=== PATIENT | male | born 1960 | race Caucasian/White ===

== ENCOUNTER → 2017-10-25 15:52 | Outpatient (CLI) | payer OTHER, SELFPAY ==
[2017-10-25 17:51] LABS: Absolute Lymphocyte Count 1.48 X10^3/ul (0.83-4.51); Absolute Neutrophil Count 3.8 X10^3/uL (2.0-7.7); Basophil# 0.09 X10^3/uL; Basophil% 1.4 % (0-1); Eosinophil# 0.17 X10^3/uL; Eosinophils% 2.7 % (0-5); Hemoglobin 16.4 g/dl (13.0-16.5); Lymphocyte # 1.48 X10^3/ul (4.0); Lymphocyte % 23.5 % (19-41); Mean Corp Hgb Conc 35.7 g/gl (32-36); Mean Corpuscular Hgb 33.1 pg (27.0-32.0); Mean Corpuscular Volume 92.7 fL (80-94); Monocyte# 0.74 X10^3/uL; Monocyte% 11.7 % (0-10); Neutrophil # 3.81 X10^3/uL (2.7-7.7); Neutrophil % 60.4 % (47-70); Platelet Count 286 K/mm3 (150-450); RBC Distribution Width CV 13.5 % (11.6-14.6); RBC Distribution Width SD 44.3 fl (35.1-43.9); Red Blood Count 4.96 M/mm3 (4.6-6.2); White Blood Count 6.3 K/mm3 (4.4-11.0)
[2017-10-25 17:52] LABS: POSITIVE COUNT NO; POSITIVE DIFFERENTIAL NO; POSITIVE MORPHOLOGY NO
[2017-10-25 18:03] LABS: ALB/GLOB Ratio 1.3 RATIO (0.9-2.4); AST(SGOT) 21 U/L (15-37); Alanine Aminotransfer ALT/SGPT 42 U/L (16-61); Albumin, Serum 3.9 g/dL (3.2-5.0); Alkaline Phosphatase 59 U/L (45-117); Anion Gap 6 (5-15); BUN 14 mg/dL (7-18); BUN/Creat Ratio 12.3 RATIO (10-20); Calcium,Total 8.4 mg/dL (8.5-10.1); Chloride 107 mmol/L (98-107); Creatinine, Serum 1.14 mg/dL (0.70-1.30); EST Glomerular Filtration Rate 70 mL/min (>60); Est Glom Filt Rate - Afr Amer 85 mL/min (>60); Glucose 86 mg/dL (74-106); Protein, Total 6.9 g/dL (6.4-8.2); Sodium Level 142 mmol/L (136-145)
== END ==
PROVIDERS: Family Provider Internal Medicine; PCP Internal Medicine; Visit Provider Internal Medicine Rheumatology
DX: L40.59 Other psoriatic arthropathy (principal); L40.8 Other psoriasis; M17.0 Bilateral primary osteoarthritis of knee; G47.33 Obstructive sleep apnea (adult) (pediatric); E78.5 Hyperlipidemia, unspecified; Z79.899 Other long term (current) drug therapy
CPT/HCPCS: 36415; 80053; 85025

== ENCOUNTER → 2017-12-17 06:17 | Outpatient (CLI) | payer OTHER, SELFPAY ==
[2017-12-17 07:30] LABS: Absolute Lymphocyte Count 1.33 X10^3/ul (0.83-4.51); Absolute Neutrophil Count 2.8 X10^3/uL (2.0-7.7); Basophil# 0.06 X10^3/uL; Basophil% 1.1 % (0-1); Eosinophil# 0.22 X10^3/uL; Eosinophils% 3.9 % (0-5); Hematocrit 44.6 % (40-54); Hemoglobin 15.3 g/dl (13.0-16.5); Lymphocyte # 1.33 X10^3/ul (4.0); Lymphocyte % 23.9 % (19-41); Mean Corp Hgb Conc 34.3 g/gl (32-36); Mean Corpuscular Hgb 32.1 pg (27.0-32.0); Mean Corpuscular Volume 93.5 fL (80-94); Mean Platelet Vol. 9.5 fl (6.2-12.0); Monocyte# 1.11 X10^3/uL; Monocyte% 19.9 % (0-10); Neutrophil # 2.83 X10^3/uL (2.7-7.7); Neutrophil % 50.8 % (47-70); Platelet Count 238 K/mm3 (150-450); RBC Distribution Width CV 13.5 % (11.6-14.6); RBC Distribution Width SD 45.7 fl (35.1-43.9); Red Blood Count 4.77 M/mm3 (4.6-6.2); White Blood Count 5.6 K/mm3 (4.4-11.0)
[2017-12-17 07:34] LABS: POSITIVE COUNT NO; POSITIVE DIFFERENTIAL NO; POSITIVE MORPHOLOGY NO
[2017-12-17 08:04] LABS: ALB/GLOB Ratio 1.1 RATIO (0.9-2.4); AST(SGOT) 24 U/L (15-37); Alanine Aminotransfer ALT/SGPT 39 U/L (16-61); Albumin, Serum 3.5 g/dL (3.2-5.0); Alkaline Phosphatase 57 U/L (45-117); Anion Gap 7 (5-15); BUN 12 mg/dL (7-18); BUN/Creat Ratio 13.5 RATIO (10-20); Calcium,Total 8.5 mg/dL (8.5-10.1); Chloride 107 mmol/L (98-107); Cholesterol 114 mg/dL (200); Creatinine, Serum 0.89 mg/dL (0.70-1.30); EST Glomerular Filtration Rate 94 mL/min (>60); Est Glom Filt Rate - Afr Amer 113 mL/min (>60); Globulin 3.2 g/dL (2.2-4.2); Glucose 86 mg/dL (74-106); High Density Lipoprotein 27 mg/dL; PSA,Total - Annual Screen 0.85 ng/mL (0.00-4.00); Potassium 3.6 mmol/L (3.5-5.1); Protein, Total 6.7 g/dL (6.4-8.2); Sodium Level 143 mmol/L (136-145); Thyroid Stim Hormone (TSH) 1.13 uIU/mL (0.358-3.74); Triglycerides 115 mg/dL; Very Low Density Lipoprotein 23 mg/dL (5-40)
== END ==
PROVIDERS: Family Provider Internal Medicine; PCP Internal Medicine; Visit Provider Internal Medicine
DX: Z12.5 Encounter for screening for malignant neoplasm of prostate (principal); E05.90 Thyrotoxicosis, unspecified without thyrotoxic crisis or storm; E78.4 Other hyperlipidemia; R41.3 Other amnesia
CPT/HCPCS: 36415; 80053; 80061; 84153; 84443; 85025; G0103

== ENCOUNTER → 2018-01-24 06:10 | Outpatient (CLI) | payer OTHER, SELFPAY ==
[2018-01-24 07:11] LABS: Absolute Neutrophil Count 3.1 X10^3/uL (2.0-7.7); Basophil# 0.08 X10^3/uL; Basophil% 1.4 % (0-1); Eosinophils% 3.5 % (0-5); Hematocrit 45.5 % (40-54); Hemoglobin 16.2 g/dl (13.0-16.5); Lymphocyte % 29.5 % (19-41); Mean Corp Hgb Conc 35.6 g/gl (32-36); Mean Corpuscular Hgb 33.2 pg (27.0-32.0); Mean Corpuscular Volume 93.2 fL (80-94); Mean Platelet Vol. 9.6 fl (6.2-12.0); Monocyte# 0.67 X10^3/uL; Monocyte% 11.6 % (0-10); Neutrophil # 3.09 X10^3/uL (2.7-7.7); Neutrophil % 53.7 % (47-70); Platelet Count 268 K/mm3 (150-450); RBC Distribution Width CV 13.1 % (11.6-14.6); RBC Distribution Width SD 43.6 fl (35.1-43.9); Red Blood Count 4.88 M/mm3 (4.6-6.2); White Blood Count 5.8 K/mm3 (4.4-11.0)
[2018-01-24 07:16] LABS: POSITIVE COUNT NO; POSITIVE DIFFERENTIAL NO; POSITIVE MORPHOLOGY NO
[2018-01-24 07:27] LABS: ALB/GLOB Ratio 1.2 RATIO (0.9-2.4); AST(SGOT) 19 U/L (15-37); Alanine Aminotransfer ALT/SGPT 34 U/L (16-61); Albumin, Serum 3.5 g/dL (3.2-5.0); Alkaline Phosphatase 53 U/L (45-117); Anion Gap 5 (5-15); BUN 19 mg/dL (7-18); Calcium,Total 8.4 mg/dL (8.5-10.1); Chloride 108 mmol/L (98-107); EST Glomerular Filtration Rate 81 mL/min (>60); Est Glom Filt Rate - Afr Amer 98 mL/min (>60); Glucose 125 mg/dL (74-106); Potassium 4.2 mmol/L (3.5-5.1); Protein, Total 6.5 g/dL (6.4-8.2); Sodium Level 142 mmol/L (136-145)
== END ==
PROVIDERS: Family Provider Internal Medicine; PCP Internal Medicine; Visit Provider Internal Medicine Rheumatology
DX: L40.59 Other psoriatic arthropathy (principal); Z79.899 Other long term (current) drug therapy; L40.8 Other psoriasis; M17.0 Bilateral primary osteoarthritis of knee; G47.33 Obstructive sleep apnea (adult) (pediatric); E78.5 Hyperlipidemia, unspecified
CPT/HCPCS: 36415; 80053; 85025

== ENCOUNTER → 2018-04-22 15:53 | Outpatient (CLI) | payer OTHER, SELFPAY ==
[2018-04-22 17:54] LABS: Absolute Lymphocyte Count 1.59 X10^3/ul (0.83-4.51); Absolute Neutrophil Count 3.4 X10^3/uL (2.0-7.7); Basophil# 0.05 X10^3/uL; Basophil% 0.9 % (0-1); Eosinophil# 0.14 X10^3/uL; Eosinophils% 2.4 % (0-5); Hematocrit 45.5 % (40-54); Hemoglobin 16.3 g/dl (13.0-16.5); Lymphocyte # 1.59 X10^3/ul (4.0); Mean Corp Hgb Conc 35.8 g/gl (32-36); Mean Corpuscular Hgb 33.3 pg (27.0-32.0); Mean Platelet Vol. 9.9 fl (6.2-12.0); Monocyte# 0.69 X10^3/uL; Monocyte% 11.7 % (0-10); Neutrophil # 3.39 X10^3/uL (2.7-7.7); Neutrophil % 57.7 % (47-70); Platelet Count 305 K/mm3 (150-450); RBC Distribution Width CV 13.1 % (11.6-14.6); RBC Distribution Width SD 43.3 fl (35.1-43.9); Red Blood Count 4.89 M/mm3 (4.6-6.2); White Blood Count 5.9 K/mm3 (4.4-11.0)
[2018-04-22 17:58] LABS: POSITIVE COUNT NO; POSITIVE DIFFERENTIAL NO; POSITIVE MORPHOLOGY NO
[2018-04-22 18:33] LABS: ALB/GLOB Ratio 1.2 RATIO (0.9-2.4); AST(SGOT) 21 U/L (15-37); Alanine Aminotransfer ALT/SGPT 35 U/L (16-61); Albumin, Serum 3.7 g/dL (3.2-5.0); Alkaline Phosphatase 63 U/L (45-117); Anion Gap 9 (5-15); BUN 15 mg/dL (7-18); BUN/Creat Ratio 14.9 RATIO (10-20); Calcium,Total 8.7 mg/dL (8.5-10.1); Chloride 104 mmol/L (98-107); Creatinine, Serum 1.01 mg/dL (0.70-1.30); EST Glomerular Filtration Rate 80 mL/min (>60); Est Glom Filt Rate - Afr Amer 97 mL/min (>60); Globulin 3.2 g/dL (2.2-4.2); Glucose 86 mg/dL (74-106); Protein, Total 6.9 g/dL (6.4-8.2); Sodium Level 143 mmol/L (136-145)
== END ==
PROVIDERS: Family Provider Internal Medicine; PCP Internal Medicine; Visit Provider Internal Medicine Rheumatology
DX: L40.59 Other psoriatic arthropathy (principal); L40.8 Other psoriasis; M17.0 Bilateral primary osteoarthritis of knee; G47.33 Obstructive sleep apnea (adult) (pediatric); E78.5 Hyperlipidemia, unspecified; Z79.899 Other long term (current) drug therapy
CPT/HCPCS: 36415; 80053; 85025

== ENCOUNTER → 2018-07-19 09:14 | Outpatient (CLI) | payer OTHER, SELFPAY ==
[2018-07-19 10:13] LABS: Absolute Lymphocyte Count 1.42 X10^3/ul (0.83-4.51); Absolute Neutrophil Count 4.4 X10^3/uL (2.0-7.7); Basophil# 0.07 X10^3/uL; Eosinophil# 0.15 X10^3/uL; Eosinophils% 2.2 % (0-5); Hematocrit 46.6 % (40-54); Hemoglobin 16.2 g/dl (13.0-16.5); Lymphocyte # 1.42 X10^3/ul (4.0); Lymphocyte % 20.7 % (19-41); Mean Corp Hgb Conc 34.8 g/gl (32-36); Mean Corpuscular Hgb 32.3 pg (27.0-32.0); Mean Corpuscular Volume 92.8 fL (80-94); Mean Platelet Vol. 9.3 fl (6.2-12.0); Monocyte# 0.81 X10^3/uL; Monocyte% 11.8 % (0-10); Neutrophil # 4.38 X10^3/uL (2.7-7.7); Platelet Count 278 K/mm3 (150-450); RBC Distribution Width CV 13.3 % (11.6-14.6); RBC Distribution Width SD 44.6 fl (35.1-43.9); Red Blood Count 5.02 M/mm3 (4.6-6.2); White Blood Count 6.9 K/mm3 (4.4-11.0)
[2018-07-19 10:14] LABS: POSITIVE COUNT NO; POSITIVE DIFFERENTIAL NO; POSITIVE MORPHOLOGY NO
[2018-07-19 10:49] LABS: ALB/GLOB Ratio 1.2 RATIO (0.9-2.4); AST(SGOT) 26 U/L (15-37); Alanine Aminotransfer ALT/SGPT 52 U/L (16-61); Albumin, Serum 3.6 g/dL (3.2-5.0); Alkaline Phosphatase 62 U/L (45-117); Anion Gap 7 (5-15); BUN 16 mg/dL (7-18); BUN/Creat Ratio 17.8 RATIO (10-20); Calcium,Total 8.6 mg/dL (8.5-10.1); Chloride 107 mmol/L (98-107); EST Glomerular Filtration Rate 92 mL/min (>60); Est Glom Filt Rate - Afr Amer 111 mL/min (>60); Globulin 3.1 g/dL (2.2-4.2); Glucose 112 mg/dL (74-106); Protein, Total 6.7 g/dL (6.4-8.2); Sodium Level 142 mmol/L (136-145)
== END ==
PROVIDERS: Family Provider Internal Medicine; PCP Internal Medicine; Referring Provider Internal Medicine Rheumatology; Visit Provider Internal Medicine Rheumatology
DX: L40.59 Other psoriatic arthropathy (principal); M17.0 Bilateral primary osteoarthritis of knee; G47.33 Obstructive sleep apnea (adult) (pediatric); E78.5 Hyperlipidemia, unspecified; Z79.899 Other long term (current) drug therapy
CPT/HCPCS: 36415; 80053; 85025

== ENCOUNTER → 2018-07-29 08:08 | Outpatient (CLI) | payer OTHER, SELFPAY ==
--- NOTE | 2018-07-29 08:10 | US_ITS ---
STUDY: THYROID ULTRASOUND REASON FOR EXAM: Male, 58 years old. Thyromegaly TECHNIQUE: Ultrasound evaluation of the thyroid was performed with real-time and static wagner-scale imaging. COMPARISON: None. FINDINGS: RIGHT LOBE: The right lobe of the thyroid gland measures 5.8 x 2.9 x 2.2 cm. There is a homogeneous echotexture. There is a hypoechoic nodule of the upper pole measuring 4 x 4 by 3 mm. There is minimal peripheral vascularity of this nodule. LEFT LOBE: The left lobe of the thyroid gland measures 5.1 x 2.2 x 2.6 cm. There is a homogeneous echotexture. There is a hypoechoic nodule of the mid pole measuring 1.2 x 1.2 x 1.4 cm. There is minimal peripheral vascularity of this nodule. ISTHMUS: The isthmus measures 12 mm . The regional lymph nodes are normal. US/Thyroid IMPRESSION: Mild thyromegaly. Bilateral thyroid nodules as described above. The left thyroid lobe nodule is indeterminate for malignant versus benign process, and biopsy is recommended. Electronically Signed: Dioni Guerrero MD at 23:13 EST , Service support ,
--- NOTE | 2018-07-29 08:37 | RAD_ITS ---
STUDY: X-RAY - LEFT KNEE REASON FOR EXAM: Male, 58 years old. Pain, no known injury TECHNIQUE: 4 view(s) of the knee. COMPARISON: Previous study of 01/26/2014 FINDINGS: Normal visualized distal femur. Normal visualized proximal tibia and fibula. Normal proximal tibiofibular articulation. Normal medial femorotibial compartment. Normal lateral femorotibial compartment. Normal patellofemoral articulation. The soft tissue structures are unremarkable. RAD/Knee 1 or 2 Views IMPRESSION: Normal x-ray examination of the knee. Electronically Signed: Dioni Guerrero MD at 20:09 EST , Service support ,
--- NOTE | 2018-07-29 08:46 | RAD_ITS ---
STUDY: X-RAY - RIGHT KNEE REASON FOR EXAM: Male, 58 years old. Pain, no known injury TECHNIQUE: 4 view(s) of the knee. COMPARISON: Prior study of 08/07/2014 FINDINGS: Normal visualized distal femur. Normal visualized proximal tibia and fibula. Normal proximal tibiofibular articulation. Normal medial femorotibial compartment. Normal lateral femorotibial compartment. Normal patellofemoral articulation. The soft tissue structures are unremarkable. RAD/Knee 1 or 2 Views IMPRESSION: Normal x-ray examination of the knee. Electronically Signed: Dioni Guerrero MD at 20:10 EST , Service support ,
--- OUTSIDE RECORDS SUMMARY | 2018-10-30 18:34 | XMS RPT_ITS | Continuity of Care Document ---
:1960 Author Organization [facility] Address [facility] [address] [place] [address] Phone Care Team Providers Name Role Phone Ana Cai DO Unavailable Lupillo Taylor Unavailable Alonso HICKEY, Sin Morton Unavailable Ed HICKEY, Davy Hudson Unavailable Dr. Lowell Corbin Unavailable Terrence Turner Unavailable Dante Cook Unavailable Unavailable Terrence HICKEY, Ingrid Lee Unavailable Millie Christine Unavailable Unavailable Amaris Becerra Unavailable Unavailable Jenny Flower Unavailable Unavailable Unavailable Unavailable Problems Name Dates Details Abnormal C-reactive protein (R79.89, 790.99) Status: Active Abnormal TSH (R79.89, 790.6) Comments: repeat normal Status: Active Anxiety (F41.9, 300.00) Comments: controlled Status: Active Attention deficit disorder of adult (F98.8, 314.00) Comments: right now doing better talk about the CBT needs and the ways to help with doing list and complete first thing on list to go to second. complete things as told and comes in. working on family interacti on now that being treated.CS , drug screen 07-30 Status: Active Bilateral carotid artery stenosis (I65.23, 433.10) Comments: LAST blood flow screening in 10/28 was normal Status: Active Bilateral knee pain (M25.561, 719.46) Status: Active BMI 30.0-30.9,adult (Z68.30, V85.30) Status: Active Bronchitis with asthma, acute (J20.9, 466.0) Status: Active Elevated blood-pressure reading without diagnosis of hypertension (R03.0, 796.2) Comments: chronic stable-continue present regimen Status: Active Encounter for screening for malignant neoplasm of prostate (Renamed from Screening for prostate cancer) (Z12.5, V76.44) Status: Active Fatigue (R53.83, 780.79) Comments: not sleeping enough or eating - if not improve with making changes he will need more workup Status: Active Gastric reflux (K21.9, 530.81) Comments: chronic stable-continue present regimen Status: Active Gastroesophageal reflux disease without esophagitis (K21.9, 530.81) Comments: chronic stable-continue present regimen Status: Active Hyperthyroidism (E05.90, 242.90) Comments: chronic stable-continue present regimen Status: Active Immunocompromised, acquired (D84.9, 279.3) Status: Active Lacunar infarction (I63.81, 434.91) Comments: agressive risk factor control and he taking aspirin daily Status: Active Liver function abnormality (K76.89, 573.9) Comments: better Status: Active [facility] wellness exam Status: Active Memory loss (R41.3, 780.93) Status: Active Migraine (G43.909, 346.90) Comments: opthalmic migraine Status: Active Need for prophylactic vaccination and inoculation against influenza (Renamed from Need for immunization against influenza) (Z23, V04.81) Status: Active Obstructive sleep apnea, adult (G47.33, 327.23) Comments: wearing cpap Status: Active Osteoarthritis (M19.90, 715.90) Status: Active Other hyperlipidemia (E78.49, 272.4) Status: Active Pneumococcal vaccination given (Z23, V06.6) Comments: personal hx of pneumonia and immune compromised with meds Status: Active Primary dysthymia (F34.1, 300.4) Status: Active Psoriatic arthropathy (L40.50, 696.0) Status: Active Smoker (F17.200, 305.1) Comments: encourage cessation- WE DISCUSSED HE USES PIPE Status: Active Soft tissue mass (M79.9, 729.90) Comments: take nsaids and ic if not better call and send to cushion former Status: Active Thyroid nodule (E04.1, 241.0) Status: Active Thyromegaly (E01.0, 240.9) Status: Active Unspecified Diagnosis Status: Active Wheezing (R06.2, 786.07) Status: Active Medications Name Dates Details Amphetamine-Dextroamphet ER 20 MG Oral Capsule Extended Release 24 Hour 1 (one) Capsule ER 24HR bid for 0 days Quantity: 60 {Capsule} Refills: 0 Ordered:15-Jul-2018 Ingrid Ocampo MD Start : 15-Jul-2018 Active Comments:sixtyplease dispense blue capsules onlyDX: F98.8 B-COMPLEX (Oral Capsule) 1 cap qd for 0 days Refills: 0 Ordered:04-Dec-2016 Shauna Becerra Calcium 600+D Plus Minerals 600-400 MG-UNIT Oral Tablet Chewable 1 (one) Tablet Chewable qd for 0 days Quantity: 30 {Tablet} Refills: 3 Ordered:25-Feb-2016 Fast DO, Ana AFast DO, Ana A Start : 25-Feb-2016 Active Crestor 10 MG Oral Tablet 1 (one) Tablet qd for 90 days Quantity: 90 {Tablet} Refills: 3 Ordered:25-Mar-2018 Fast DO, Ana AFast DO, Ana A Start : 25-Mar-2018 Active DULoxetine HCl 20 MG Oral Capsule Delayed Release Particles 2 (two) Capsule DR Part qd for 0 days Quantity: 180 {Capsule} Refills: 3 Ordered:22-Jul-2018 Fast DO, Ana AFast DO, Ana A Start : 22-Jul-2018 Active DULoxetine HCl 20 MG Oral Capsule Delayed Release Particles 2 (two) Capsule DR Part qd for 0 days Quantity: 180 {Capsule} Refills: 3 Ordered:22-Jul-2018 Fast DO, Ana AFast DO, Ana A Start : 22-Jul-2018 Active Escitalopram Oxalate 20 MG Oral Tablet 1 (one) Tablet qhs for 90 days Quantity: 90 {Tablet} Refills: 3 Ordered:03-Sep-2017 Ana Cai DO, DO, Ana A Start : 03-Sep-2017 Active FOLIC ACID, 1MG (Oral Tablet) 1 tab qd (1 MG) Active Methotrexate 2.5 MG Oral Tablet 6 once weekly (2.5 MG) Active Comments:vashti Metoprolol Tartrate 50 MG Oral Tablet 1 (one) Tablet 1 tab at 6pm night before scan. 1 tab at 7am day of scan for 0 days Quantity: 2 {Tablet} Refills: 0 Ordered:24-Jul-2018 Millie Christine Start : 24-Jul-2018 Active Montelukast Sodium 10 MG Oral Tablet 1 (one) Tablet qd in evening for 90 days Quantity: 90 {Tablet} Refills: 3 Ordered:29-Jun-2017 Ana Cai DO, DO Ana A Start : 29-Jun-2017 Active MULTIVITAMIN (PO Tab) 1 tab qd for 0 days Refills: 0 Ordered:16-Feb-2010 Shauna Becerra OMEGA 3, 1000MG (Oral Capsule) 1 cap qd for 0 days Refills: 0 Ordered:16-Feb-2010 Shauna Becerra Otezla 10 & 20 & 30 MG Oral Tablet Therapy Pack 1 (one) Tab Ther Pack uad per Dr Valle for 0 days Quantity: 1 {Packet} Refills: 3 Ordered:04-Dec-2016 Amaris Becerra Start : 25-Feb-2016 Active Comments:Leonard Reese HFA 108 (90 Base) MCG/ACT Inhalation Aerosol Solution 2 (two) Aerosol Soln q 6 hr prn for 0 days Quantity: 1 {Inhaler} Refills: 1 Ordered:24-Dec-2017 Ayala ZAMAN Ana Palafox DO, Ana A Start : 24-Dec-2017 Active VITAMIN C, 500MG (Oral Tablet) 1 tab qd during winter months for 0 days Refills: 0 Ordered:16-Nov-2014 Elodia Christinetive AMOXICILLIN-POT CLAVULANATE, 875-125MG (Oral Tablet) 1 (one) Tablet Tablet bid for 0 days Quantity: 20 {Tablet} Refills: 0 Ordered:26-Jul-2015 Long SIGNAL OPERATOR, Rae L Start : 20-Apr-2015 End : 26-Jul-2015 Inactive ASPIRIN LOW DOSE, 81MG (Oral Tablet) 1 tab qd for 0 days Refills: 0 Ordered:16-Feb-2010 Amaris Becerra End : 16-Feb-2010 Inactive Augmentin 875-125 MG Oral Tablet 1 (one) Tablet Tablet bid for 90 days Quantity: 20 {QS} Refills: 3 Ordered:11-Jan-2017 VIVIANA Hart Start : 20-Dec-2016 End : 11-Jan-2017 Inactive Clarithromycin 500 MG Oral Tablet 1 (one) Tablet Tablet bid for 0 days Quantity: 20 {Tablet} Refills: 0 Ordered:03-Apr-2018 Fast DO, Ana AFast DO, Ana A Start : 24-Dec-2017 End : 03-Apr-2018 Inactive CLOTRIMAZOLE, 10MG (Mouth/Throat Riya) 1 (one) Riya 5x daily for 10 days Quantity: 50 {Riya} Refills: 0 Ordered:26-Jul-2015 Leeanne BENITEZHyacinth Start : 26-Jul-2015 End : 05-Aug-2015 Inactive LORazepam 0.5 MG Oral Tablet 1 (one) Tablet qd prn for 30 days Quantity: 30 {Tablet} Refills: 0 Ordered:01-Jul-2018 Fast DO, Ana AFast DO, Ana A Start : 01-Jul-2018 End : 31-Jul-2018 Inactive Comments:thirty PredniSONE 10 MG Oral Tablet 3 (three) Tablet pills for 3 days 2 pills for 3 days 1 pill for 3 days with food in am for 0 days Quantity: 18 {Tablet} Refills: 0 Ordered:03-Apr-2018 Millie Christine Start : 24-Dec-2017 End : 03-Apr-2018 Inactive Comments:take with food in am BIAXIN XL, 500MG (Oral Tablet Extended Release 24 Hour) 2 (two) Tablet ER 24HR Tablet ER 24HR qd for 0 days Quantity: 20 {Tablet} Refills: 0 Ordered:08-Nov-2015 Amaris Becerra Start : 26-Jul-2015 End : 08-Nov-2015 Discontinued BUSPIRONE HCL, 15MG (Oral Tablet) 1/2 Tablet bid for 0 days Quantity: 30 {Tablet} Refills: 3 Ordered:25-Apr-2011 Mast Andra BARAJAS Start : 18-Oct-2010 End : 25-Apr-2011 Discontinued CeleXA 40 MG Oral Tablet 1 (one) Tablet daily for 90 days Quantity: 90 {Tablet} Refills: 0 Ordered:25-Feb-2016 Fast DO, Ana AFast DO, Ana A Start : 25-Feb-2016 End : 25-Feb-2016 Discontinued CHERATUSSIN AC, 100-10MG/5ML (Oral Syrup) 1-2 Teaspoon qhs prn for 0 days Quantity: 6 {Ounce} Refills: 0 Ordered:08-Nov-2015 Amaris Becerra Start : 26-Jul-2015 End : 08-Nov-2015 Discontinued Escitalopram Oxalate 20 MG Oral Tablet 1/2 Tablet qhs for 90 days Quantity: 90 {Tablet} Refills: 3 Ordered:15-May-2016 Fast DO, Ana AFast DO, Ana A Start : 15-May-2016 End : 15-May-2016 Discontinued HYCODEN (Oral Syrup) (Free Text) 1 (one) Teaspoon Teaspoon q 6hrs, prn for 0 days Quantity: 60 {Milliliter} Refills: 0 Ordered:08-Nov-2015 Amaris Becerra Start : 01-Jul-2015 End : 08-Nov-2015 Discontinued Comments:sixty MOBIC, 15MG (Oral Tablet) 1 tab qd, prn (15 MG) End : 03-Apr-2016 Discontinued NAPROXEN SODIUM, 500MG (Oral Tablet Extended Release 24 Hour) 1 tab Tablet ER 24HR bid for 0 days Quantity: 60 {Tablet_ER_24HR} Refills: 3 Ordered:16-Feb-2010 Andra Schmitt RN Start : 16-Feb-2010 End : 25-Apr-2011 Discontinued PANTOPRAZOLE SODIUM, 40MG (Oral Tablet Delayed Release) 1 (one) Tablet DR Tablet DR qd for 0 days Quantity: 30 {Tablet} Refills: 3 Ordered:08-Nov-2015 Amaris Becerra Start : 19-Jul-2015 End : 08-Nov-2015 Discontinued PANTOPRAZOLE SODIUM, 40MG (Oral Tablet Delayed Release) 1 (one) Tablet DR Tablet DR qd for 0 days Quantity: 90 {Tablet} Refills: 3 Ordered:08-Nov-2015 Amaris Becerra Start : 19-Jul-2015 End : 08-Nov-2015 Discontinued Simvastatin 20 MG Oral Tablet 1 (one) Tablet daily for 0 days Quantity: 180 {Tablet} Refills: 3 Ordered:15-May-2016 Ayala ZAMAN Ana DANtray Ana Kelley Start : 15-May-2016 End : 15-May-2016 Discontinued Simvastatin 20 MG Oral Tablet 1 (one) Tablet daily for 90 days Quantity: 90 {Tablet} Refills: 0 Ordered:15-May-2016 Ayala ZAMAN, Ana Palafox DO, Ana A Start : 15-May-2016 End : 15-May-[address], 0.3-0.05% (Ophthalmic Suspension) 1 Suspension each eye bid for 90 days Refills: 0 Ordered:30-Oct-2011 Amaris Becerra Start : 30-Oct-2011 End : 30-Oct-2011 Discontinued TUMS, 500MG (Oral Tablet Chewable) 1 Tablet Chewable bid for 0 days Quantity: 60 {Tablet_Chewable} Refills: 0 Ordered:08-Nov-2015 Amaris Becerra Start : 29-Jul-2012 End : 08-Nov-2015 Discontinued Allergies and Adverse Reactions Name Dates Details No Known Allergies (Allergy) Onset: 05-Aug-2013 Status: Active No Known Drug Allergies (Allergy) Status: Active Past Medical History Name Dates Details Abnormal blood chemistry (R79.9, 790.6) Status: Inactive as of 09-Jun-2016 Acute pharyngitis (J02.9, 462) Status: Resolved as of 08-Nov-2015 Acute upper respiratory infection (J06.9, 465.9) Status: Inactive as of 09-Jun-2016 Acute upper respiratory infection (J06.9, 465.9) Status: Inactive as of 11-Jan-2017 Allergic rhinitis due to other allergic trigger (J30.89, 477.8) Status: Inactive as of 24-Dec-2017 BMI 27.0-27.9,adult (Z68.27, V85.23) Status: Inactive as of 11-Jan-2017 BMI 28.0-28.9,adult (Z68.28, V85.24) Status: Inactive as of 24-Dec-2017 BMI 30.0-30.9,adult (Z68.30, V85.30) Status: Inactive as of 24-Dec-2017 BMI 31.0-31.9,adult (Z68.31, V85.31) Status: Inactive as of 22-Jul-2018 Bronchitis (J40, 490) Comments: sinusitis as well Status: Resolved as of 08-Nov-2015 Confusion (R41.0, 298.9) Status: Inactive as of 11-Jan-2017 Cough (R05, 786.2) Status: Resolved as of 17-Nov-2013 Cough, persistent (R05, 786.2) Status: Resolved as of 08-Nov-2015 Difficulty sleeping (G47.9, 780.50) Comments: better Status: Inactive as of 11-Jan-2017 Encounter for hepatitis C virus screening test for high risk patient (Z11.59, V73.89) Status: Resolved as of 16-Jul-2017 Encounter for screening for malignant neoplasm of prostate (Renamed from Screening for prostate cancer) (Z12.5, V76.44) Status: Inactive as of 11-Jan-2017 Epicondylitis, lateral (M77.10, 726.32) Status: Resolved as of 24-Feb-2013 Fever and chills (R50.9, 780.60) Status: Resolved as of 19-Jul-2015 fractured vertebrae- upper back Status: Inactive as of 18-Oct-2010 Hypocalcemia (E83.51, 275.41) Status: Resolved as of 21-Oct-2012 Hypocalcemia (E83.51, 275.41) Status: Inactive as of 09-Jun-2016 [facility] Status: Resolved as of 16-Jul-2017 [facility] Status: Inactive as of 09-Jun-2016 Memory loss (R41.3, 780.93) Status: Inactive as of 09-Jun-2016 Need for prophylactic vaccination and inoculation against influenza (Z23, V04.81) Status: Inactive as of 08-Nov-2015 Need for prophylactic vaccination and inoculation against influenza (Z23, V04.81) Status: Inactive as of 08-Nov-2015 Need for prophylactic vaccination and inoculation against influenza (Renamed from Need for immunization against influenza) (Z23, V04.81) Status: Inactive as of 09-Jun-2016 Need for prophylactic vaccination and inoculation against influenza (Renamed from Need for immunization against influenza) (Z23, V04.81) Status: Inactive as of 08-Nov-2015 Need for prophylactic vaccination and inoculation against influenza (Renamed from Need for immunization against influenza) (Z23, V04.81) Status: Resolved as of 16-Jul-2017 NEED FOR PROPHYLACTIC VACCINATION WITH TETANUS TOXOID ALONE (V03.7) Status: Inactive as of 09-Jun-2016 Need for Tdap vaccination (Renamed from Need for iqmhsoneyi-iebvlmc-plevzajig (Tdap) vaccine, adult/adolescent) (Z23, V06.1) Status: Inactive as of 09-Jun-2016 Neoplasm of uncertain behavior of skin (D48.5, 238.2) Status: Inactive as of 24-Dec-2017 Osteoarthritis, unspecified osteoarthritis type, unspecified site (M19.90, 715.90) Status: Inactive as of 18-Oct-2010 screening Status: Resolved as of 08-Nov-2015 Screening for prostate cancer (Z12.5, V76.44) Status: Inactive as of 08-Nov-2015 Sinusitis, acute (J01.90, 461.9) Status: Resolved as of 08-Nov-2015 Snoring (R06.83, 786.09) Comments: refer sleep study Status: Inactive as of 09-Jun-2016 Sore throat and laryngitis (J06.0, 465.0) Status: Resolved as of 08-Nov-2015 Thrush (B37.0, 112.0) Status: Resolved as of 08-Nov-2015 Tonsillectomy Comments: and adenoidectomy /nasal septum surgery Status: Inactive as of 18-Oct-2010 Upper respiratory infection (J06.9, 465.9) Status: Resolved as of 08-Nov-2015 vision change Status: Resolved as of 08-Nov-2015 Wheeze (R06.2, 786.07) Status: Resolved as of 19-Jul-2015 Wheezing (R06.2, 786.07) Status: Resolved as of 17-Nov-2013 Procedures Procedure Dates Details TDAP VACCINE >7 IM (94516) Date: 08-Nov-2015 Completed 08-Nov-2015 nasal septal deviation urgery Completed Tonsillectomy Completed uvuloplasty/palate surgery Completed Date Value Details 29-Jul-2018 Knee 1 or 2 Views Result: Comments: See Note; NOTES: [facility] Imaging Services [address] [place] [id number] Knee 1 or 2 Views MR#: [id number] Acct: [id number] Name: ORACIO ELIZALDE Rep #: [id number] : 1960 M 58 From: Dioni Guerrero MD PCP: Ana Cai DO Status: REG CLI Study: Knee 1 or 2 Views Date of Exam: 07/29/18 Exam# [id number] Ordering Dr: Ana Cai DO STUDY: X-RAY - LEFT KNEE REASON FOR EXAM: Male, 58 years old. Pain, no known injury TECHNIQUE: 4 view(s) of the knee. COMPARISON: Previous study of 01/26/2014 FINDINGS: Normal visualized distal femur. Normal visualized proximal tibia and fibula. Normal proximal tibiofibular articulation. Normal medial femorotibial compartment. Normal lateral femorotibial compartment. Normal patellofemo ral articulation. The soft tissue structures are unremarkable. RAD/Knee 1 or 2 Views IMPRESSION: Normal x-ray examination of the knee. Electron ically Signed: Dioni Guerrero MD at 20:09 EST , Service support , CC: Ana Cai DO Slot Editor: Signed 29-Jul-2018 Knee 1 or 2 Views Result: Comments: See Note; NOTES: [facility] Imaging Services [address] [place] [id number] Knee 1 or 2 Views MR#: [id number] Acct: [id number] Name: ORACIO ELIZALDE Rep #: [id number] : 1960 M 58 From: Dioni Guerrero MD PCP: Ana Cai DO Status: REG CLI Study: Knee 1 or 2 Views Date of Exam: 07/29/18 Exam# [id number] Ordering Dr: Ana Cai DO STUDY: X-RAY - LEFT KNEE REASON FOR EXAM: Male, 58 years old. Pain, no known injury TECHNIQUE: 4 view(s) of the knee. COMPARISON: Previous study of 01/26/2014 FINDINGS: Normal visualized distal femur. Normal visualized proximal tibia and fibula. Normal proximal tibiofibular articulation. Normal medial femorotibial compartment. Normal lateral femorotibial compartment. Normal patellofemo ral articulation. The soft tissue structures are unremarkable. RAD/Knee 1 or 2 Views IMPRESSION: Normal x-ray examination of the knee. Electron ically Signed: Dioni Guerrero MD at 20:09 EST , Service support , CC: Ana Cai DO Slot Editor: Signed 29-Jul-2018 Knee 1 or 2 Views Result: Comments: See Note; NOTES: [facility] Imaging Services [address] [place] [id number] Knee 1 or 2 Views MR#: [id number] Acct: [id number] Name: ORACIO ELIZALDE Rep #: [id number] : 1960 58 From: Dioni Guerrero MD PCP: Ana Cai DO Status: REG CLI Study: Knee 1 or 2 Views Date of Exam: 07/29/18 Exam# [id number] Ordering Dr: Ana Cai DO STUDY: X-RAY - RIGHT KNE E REASON FOR EXAM: Male, 58 years old. Pain, no known injury TECHNIQUE: 4 view(s) of the knee. COMPARISON: Prior study of 08/07/2014 FINDINGS: Normal visualized d istal femur. Normal visualized proximal tibia and fibula. Normal proximal tibiofibular articulation. Normal medial femorotibial compartment. Normal lateral femorotibial compartment. Normal patellofemor al articulation. The soft tissue structures are unremarkable. RAD/Knee 1 or 2 Views IMPRESSION: Normal x-ray examination of the knee. Arvin delgadillo Signed: Dioni Guerrero MD at 20:10 EST , Service support , CC: Ana Cai DO Slot Editor: Signed 29-Jul-2018 Knee 1 or 2 Views Result: Comments: See Note; NOTES: [facility] Imaging Services [address] [place] [address] Knee 1 or 2 Views MR#: [id number] Acct: [id number] Name: ORACIO ELIZALDE Rep #: [id number] : 1960 M 58 From: Dioni Guerrero MD PCP: Ana Cai DO Status: REG CLI Study: Knee 1 or 2 Views Date of Exam: 07/29/18 Exam# [id number] Ordering Dr: Ana Cai DO STUDY: X-RAY - RIGHT KNE E REASON FOR EXAM: Male, 58 years old. Pain, no known injury TECHNIQUE: 4 view(s) of the knee. COMPARISON: Prior study of 08/07/2014 FINDINGS: Normal visualized d istal femur. Normal visualized proximal tibia and fibula. Normal proximal tibiofibular articulation. Normal medial femorotibial compartment. Normal lateral femorotibial compartment. Normal patellofemor al articulation. The soft tissue structures are unremarkable. RAD/Knee 1 or 2 Views IMPRESSION: Normal x-ray examination of the knee. Arvin delgadillo Signed: Dioni Guerrero MD at 20:10 EST , Service support , CC: Ana Cai DO Slot Editor: Signed 29-Jul-2018 Thyroid Result: Comments: See Note; NOTES: [facility] Imaging Services [address] [place] [address] Thyroid MR#: [id number] Acct: [id number] Name: ORACIO ELIZALDE Rep #: [id number] : M 58 From: Dioni Guerrero MD PCP: Ana Cai DO Status: REG CLI Study: Thyroid Date of Exam: 07/29/18 Exam# [id number] Ordering Dr: Ana Cai DO STUDY: THYROID ULTRASOUND REASON FOR EXAM: Male, 58 years old. Thyromegaly TECHNIQUE: Ultrasound evaluation of the thyroid was performed with real-time and static wagner-scale imaging. COMPARISON: None. FINDI NGS: RIGHT LOBE: The right lobe of the thyroid gland measures 5.8 x 2.9 x 2.2 cm. There is a homogeneous echotexture. There is a hypoechoic nodule of the upper pole measuring 4 x 4 by 3 mm. There is mi nimal peripheral vascularity of this nodule. LEFT LOBE: The left lobe of the thyroid gland measures 5.1 x 2.2 x 2.6 cm. There is a homogeneous echotexture. There is a hypoechoic nodule of the mid pole measuring 1.2 x 1.2 x 1.4 cm. There is minimal peripheral vascularity of this nodule. ISTHMUS: The isthmus measures 12 mm . The regional lymph nodes are normal. US/Thyroid IMPRESSION: Mild thyromegaly. Bilateral thyroid nodules as described above. The left thyroid lobe nodule is indeterminate for malignant versus benign process, and biopsy is recommended. Electronically Signed: Dioni Guerrero MD at 23:13 EST , Service support , CC: Ana Cai DO Slot Editor: Signed 29-Jul-2018 Thyroid Result: Comments: See Note; NOTES: [facility] Imaging Services [address] [place] [address] Thyroid MR#: [id number] Acct: [id number] Name: ORACIO ELIZALDE Rep #: [id number] : M 58 From: Dioni Guerrero MD PCP: Ana Cai DO Status: REG CLI Study: Thyroid Date of Exam: 07/29/18 Exam# [id number] Ordering Dr: Ana Cai DO STUDY: THYROID ULTRASOUND REASON FOR EXAM: Male, 58 years old. Thyromegaly TECHNIQUE: Ultrasound evaluation of the thyroid was performed with real-time and static wagner-scale imaging. COMPARISON: None. FINDI NGS: RIGHT LOBE: The right lobe of the thyroid gland measures 5.8 x 2.9 x 2.2 cm. There is a homogeneous echotexture. There is a hypoechoic nodule of the upper pole measuring 4 x 4 by 3 mm. There is mi nimal peripheral vascularity of this nodule. LEFT LOBE: The left lobe of the thyroid gland measures 5.1 x 2.2 x 2.6 cm. There is a homogeneous echotexture. There is a hypoechoic nodule of the mid pole measuring 1.2 x 1.2 x 1.4 cm. There is minimal peripheral vascularity of this nodule. ISTHMUS: The isthmus measures 12 mm . The regional lymph nodes are normal. US/Thyroid IMPRESSION: Mild thyromegaly. Bilateral thyroid nodules as described above. The left thyroid lobe nodule is indeterminate for malignant versus benign process, and biopsy is recommended. Electronically Signed: Dioni Guerrero MD at 23:13 EST , Service support , CC: Ana Cai DO Slot Editor: Signed 23-Oct-2016 Sleep Study Report Result: Comments: See Note; NOTES: [facility] [address] [place] [address] Polysomnography with NCPAP MR#: [id number] Acct: [id number] Name: ORACIO ELIZALDE ep #: [id number] : 1960 56 From: Terrence Turner MD PCP: Ana Cai DO Status: REG CLI Ordering Dr.: Terrence Turner MD Date: 10/06/16 Sex: M C DATE OF SERVICE: 10/06/2016 SCORING RULES: Respirat ory events were acquired and scored in accordance with the Recommended Standards and Specifications as outlined in the AASM Manual for the Scoring of Sleep and Associated Events ( most recent version). Please note that a reference to [facility] AHI in this report is consistent with the current Hypopnea definition according to Medicare Criteria and an [facility] AHI reference is consistent with the current Hypopnea definition according to the AASM criteria and is recognized by [facility] as the RDI. PROCEDURE: The study was attended continuously by a sleep manager. Monitored parameters included left and right EOG, f rontal, central, and occipital EEG, mental and submental EMG, left and right anterior tibialis EMG, signal ECG waveform, snore, continuous airflow with PAP device flow signal, chest and abdominal plethy smography efforts, oxygen saturation with heart rate, and body positioning with video monitoring. REFERRING PHYSICIAN: Dr. Terrence Turner. HISTORY OF PRESENT ILLNESS: The patient is a 56-year-old gentl eman with a calculated body mass index of 28, an [place] Sleepiness Scale score of 11/24. The patient is having known history of sleep disordered breathing of severe nature diagnosed in 2012. In 2013, t he patient was prescribed CPAP at 16 cm of water with humidification and EPR setting of 3. The patient is compliant with CPAP, but is complaining of symptoms of snoring along with weight gain since 2013 . Thus, the patient is undergoing this titration to determine if an appropriate CPAP setting at home or if higher setting is needed. ADDITIONAL MEDICAL HISTORY: Significant for migraine headaches, lopez tid stenosis, psoriatic arthropathy, osteoarthritis. MEDICATIONS AT TIME OF STUDY: Include simvastatin, ____, methotrexate, ____ acid, multivitamin, ____, omega-3 vitamin, aspirin, Crestor, Adderall, C ymbalta, ____, calcium, vitamin D, vitamin C. MASK USED DURING TITRATION: [employer] and [employer] Simplus full face mask, size medium with heated humidity for comfort. SLEEP STUDY DATA: The overnight titrat ion study lasted 362 minutes with sleep period of time of 361.8 minutes and total sleep time of 341.8 minutes, resulting in a sleep efficiency of 94.3%. Sleep latency was 0.5 minutes with a REM latency of 100 minutes. Sleep stage percentages were as follows, N1 18.1%, N2 68.4%, N3 0%, REM 16.5% of total sleep. There were total of 117 arousals during the study resulting in an overall arousal index of 2 0.5. The respiratory arousal index by AASM guidelines was 2.3 while spontaneous arousal index was 13.3. Limb movement arousal index was 4.9. CONTINUOUS POSITIVE AIRWAY PRESSURE DATA: The patient was in itially tried on home setting of 13 and 14 cm of water with humidification, but could not tolerate CPAP. Thus, the patient was switched to Bilevel therapy and titrated on settings of 6/12, 18/14, 20/16 cm of water with humidification. The patient was recorded in supine REM sleep and during this times on these settings. Overall, the apnea-hypopnea index is normalized on all tested settings except it is the highest which appears possibly due to over titration. As respiratory events were only early one while on that higher setting. On the Bilevel setting of 16/12 cm of water with humidification, REM sl eep was recorded for 7 minutes and 30 seconds and non-REM sleep for 2 hours and 27 minutes. On this setting, the overall AHI by AASM guidelines is 1.9 and by CMS guidelines was 1.5. Mean oxygen saturati on of 95.2% with minimum oxygen saturation of 91%. Snoring appear to be eliminated. Bilevel comfort settings were normal for a steep fall. ELECTROCARDIOGRAM DATA: Mean heart rate during sleep was 58 be ats per minute with a range of 45-76 beats per minute. Rare PVCs were noted. LIMB MOVEMENT DATA: The periodic limb movement series index during the study was 5.4. Overall, this number falls within norm al range. However, in general, there are 128 limb movements resulting in a limb movement index of 22.5 and a limb movement without arousal index of 17.6. It does raise question if some of the patient's symptoms of sleep fragmentation are complaints of daytime sleepiness could be due to limb movements. Clinical correlation is needed. DIAGNOSIS: 1. Obstructive sleep apnea syndrome, G47.33. IMPRESSION: 1. At a Bilevel setting of 16/12 cm of water with humidification; however, the patient's apnea-hypopnea and arousal indices were normalized. Snoring is eliminated and oxygen saturations were maintained at or above 91%. 2. A period limb movements are presented as above. Clinical correlation is needed. 3. Abnormal sleep architecture likely secondary to first night effect, possible medication effect, an d titration. RECOMMENDATIONS: 1. Initiate Bilevel at a setting of 16/12 cm of water with humidification. Recommend use of CPAP mask above. Recommend Bilevel comfort settings at normal/default ____ base d on ResMed machine). Allow the patient to use for approximately 4 weeks. If the smartcard download shows an apnea-hypopnea index is greater than 5 where patient is snoring, demonstrating ____ increase of Bilevel setting of 18/14 cm of water with humidification. 2. Clinical correlation for limb movements as above. 3. Encouraged weight loss to optimal body mass index. 4. Recommend the patient be advise d to avoid activities or medications that could exacerbate sleep disordered breathing. 5. Recommend the patient be advised not to drive or operate heavy machinery when sleepy. INTERPRETING PHYSICIAN: Era Turner Jr., M.D. Terrence Turner MD T: NTS JOB: [id number] CC: Terrence Turner MD 42 4210/23/16 1130 <Electronically signed by Terrence Turner MD&#62 ; Date Terrence Turner MD Co-signature (if applicable) Date Signed -Sep-2016 Thyroid Uptake Single or Mult Result: Comments: See Note; NOTES: [facility] Imaging Services [address] [place] [address] Verdana 4d Thyroid Uptake Single or Mult MR#: [id number] Acct: [id number] Name: Javon ELIZALDE Rep #: [id number] : 1960 M 56 From: Sin Brantley DO PCP: Ana Cai DO Status: REG CLI Study: Thyroid Uptake Single or Mult Date of Exam: 09/25/16 Exam# [id number] Ordering Dr: Pearce DO CLINICAL: 56-year-old male with reported history of abnormal in vitro thyroid function studies. I-123 THYROID UPTAKE and SCAN COMPARISON: None available FINDINGS: The patient was administere d a 307 uCi I-123 capsule by mouth. The 4-hour I-123 radioactive iodine thyroidal uptake was calculated to be 6.9 % (normal 5 to 25 %). The 24-hour I-123 radioactive iodine thyroidal uptake was calcul ated to be 19.2 % (normal 5 to 40 %). The I-123 thyroid scan demonstrates homogeneous radiopharmaceutical concentration throughout both lobes of a U -shaped thyroid gland. There are no colloidal parenc hymal hypofunctioning cold nodules noted in either lobe of the thyroid gland. NM/Thyroid Uptake Single or Mult IMPRESSION: 1. NORMAL 4- and 24-hour I-123 radioacti ve iodine thyroidal uptakes. 2. 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 (Beyissel et al, J Nucl Med 32: 1455, 1990) . 3. No hypofunctioning-cold nodules are identified. Electronically Signed: Sin Brantley DO at 23:21 EST Tel , Service support [phone], CC: Ana Cai DO Slot Editor: Signed 04-Apr-2016 Brain/Head W/WO Contrast Result: Comments: See Note; NOTES: [facility] Imaging Services [address] [place] [address] Verdana 4d Brain/Head W/WO Contrast MR#: [id number] Acct: [id number] Name: BECKIE ELIZALDE Rep #: [id number] : 1960 M 56 From: Cuauhtemoc Vo MD PCP: Ana Cai DO Status: REG CLI Study: Brain/Head W/WO Contrast Date of Exam: 04/04/16 Exam# [id number] Ordering Dr: Ana Cai DO STUDY: CT BRAIN WITH AND WITHOUT CONTRAST REASON FOR EXAM: Male, 56 years old. Confusion. Short-term memory loss. RADIATION DOSAGE (If Supplied By Facility): CTDIvol = ( 58.34 ) mGy, DLP = ( 212 9.64 ) mGycm TECHNIQUE: Transaxial CT imaging of the brain was performed pre and post contrast administration. The examination was performed with intravenous administration of 50 ml of Isovue 370 contr ast material. Individualized dose optimization techniques were used for this CT. COMPARISON: None. FINDINGS: Normal soft tissue structures. Normal calvarium. Norm al size ventricles and extra-axial spaces for the patient's age. Normal white matter tracts of the cerebral hemispheres. Findings suggestive of an old tiny lacunar infarct in the insular cortex of the r ight temporal lobe. Normal brainstem. Normal cerebellum. There is no intracranial hemorrhage. There are no findings of an acute ischemic infarction. Normal visualized paranasal sinuses. 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 Electronically Signed: Cuauhtemoc Vo MD at 8:08 EDT Tel [phone], Service support [phone], CC: Ana Cai DO Slot Editor: Signed 16-Aug-2014 Emergency Department Summary Result: Comments: See Note; NOTES: [facility] Medical Records Department [address] [place] [address] Emergency Department Summary MR#: [id number] Acct: [id number] Name: ORACIO LOPEZ Rep #: [id number] : 1960 54 From: Donn Jacobo MD PCP: Ana Cai DO Status: DEP ER DATE OF SERVICE: 08/07/2014 CHIEF COMPLAINT: Pain in right knee. HISTORY OF PRESENT ILLN ESS: A 54-year-old male presents with right knee pain. It started 4 days ago. No trauma. He does have a history of psoriatic arthritis. He had injection of the knee 2 weeks ago with cortisone. He h as not had a fever. He has been ____able to walk on it. PHYSICAL EXAMINATION: VITAL SIGNS: Unremarkable. EXTREMITIES: Right knee exam reveals an effusion. It is erythematous. It is slightly warm, but not hot to touch. He does have pain to range of motion in all directions. There are no overlying skin changes. EMERGENCY DEPARTMENT COURSE: X-ray reveals an effusion. He was given Percocet for pain control. I did do a knee arthrocentesis, which showed a glucose of 10, protein of 4. WBC count 2400. There were no organisms on Gram stain. I feel the patient's pain is likely due to an inflamm atory arthritis. It does not feel like it is a septic joint. I spoke with Dr. Pierce, who agrees that this is likely inflammatory. He will put ice on the area. He will be given a prescription for na proxen and [place]. He will be discharged to follow up with Dr. Pierce. DISPOSITION: Discharge. DIAGNOSES: 1. Right knee effusion: 2. Inflammatory process of right knee. Donn Jacobo MD T: NTS JOB: [id number] 08/16/14 0852 <Electronically signed by Donn Jacobo MD> Date Donn Jacobo MD CC: Ana Cai DO Date Dictated: 2208 Date Transcribed: 08/07/142208 Slot Editor: Signed 07-Aug-2014 Discharge Instruction Result: Comments: See Note; NOTES: [facility] Medical Records Department [address] [place] [address] Discharge Instruction 08/07/142205 MR#: [id number] Acct: [id number] Name: ORACIO ELIZALDE Rep #: [id number] : 1960 54 From: Donn Jacobo MD PCP: Ana Cai DO Status: REG ER ED Disposition - Plan for ED Patient: Disposition: Home Chief Complaint: Lower Ext remity Injury Discharge Problem: Effusion of left knee, Inflammatory monoarthritis of knee or lower leg Instructions: ED Knee Effusion Prescriptions: Hydrocodone Bitart/Apap 5-325 [[place] 5/325] 1 - 2 tablet PO Q4H PRN PRN #20 tablet PRN Reason: Pain Naproxen [Naprosyn] 500 mg PO BID PRN #20 tablet Referrals: Ana Cai DO [Primary Care Provider] - Lupillo Pierce DO [STAFF PHYSICIAN] - What to do if you have Problems For any increased pain, shortness of breath, bleeding, nausea or vomiting, chest pain, or any unexpected problems, contact your doctor. Call [facility] ( [phone]) or report to the closest Emergency Room. Call 911 if necessary. 08/07/142207 <Electronically signed by Donn Jacobo MD> Date Donn Jacobo MD Cosigner Signature (If Indicated): Date CC: Ana Cai DO 15-Jul-2014 Carotid Duplex Ultrasound Result: Comments: See Note; NOTES: [facility] Cardiovascular Services [address] [place] [address] Carotid Duplex Ultrasound 07/10/14 0909 MR#: [id number] Acct: [id number] Nam e: ORACIO ELIZALDE Rep #: [id number] : 1960 54 From: Robin Fabian MD Attending Dr: Ana Cai DO Status: REG CLI Ordering Dr: Ana Cai DO Date: 07/10/14 Location: [facility] Sex: M C Admitt ed: Rt. Velocities/BP Lt. Velocities/BP Prox CCA 127/36.3 cm/sec. Prox CCA 136/34 cm/sec. Mid CCA 113/38.3 cm/sec. Mid CCA 117/27.5 cm/sec. Dist CCA 95.3/32.4 cm/sec. Dist CCA 85.4/ 18.7 cm/se c. Prox ICA 73.9/23.6 cm/sec. Prox ICA 69.9/ 20.4 cm/sec. Mid ICA 76.2/28.3 cm/sec. Mid ICA 72.1/23.6 cm/sec. Dist ICA 104/37.7 cm/sec. Dist ICA 80.4/ 24.9 cm/sec. Rt. ICA/CCA = 0.9. Lt. ICA/CCA = 0.7. Prox ECA 106/25.5 cm/sec. Prox ECA 127/20.6 cm/sec. Rt. Vert. 42.8/11.1 cm/sec. Lt. Vert. 55.8/ 24.4 cm/sec. Right Extracranial There is intimal thickening but no significant atherosclerotic p laque noted in the right common carotid artery. There is no significant atherosclerotic plaque noted in the right internal carotid artery. There is no significant atherosclerotic plaque noted in the right external carotid artery. Antegrade flow is noted in the right vertebral artery. Left Extracranial There is intimal thickening but no significant atherosclerotic plaque noted in the left com mon carotid artery. There is intimal thickening but no significant atherosclerotic plaque noted in the left internal carotid artery. There is intimal thickening but no significant atherosclerotic pl aque noted in the left external carotid artery. Antegrade flow is noted in the left vertebral artery. Procedure Carotid Duplex 00330. The exam was diagnostic. Exam performed in department. Interp retation Summary Mild (<50%) stenosis right extracranial internal carotid. Mild (<50%) stenosis left extracranial internal carotid. Flow within the vertebral arteries is antegrade michelle aterally. Ordering Physician: Ana Cai Referring Physician: Lata Valle Performed By: SAMUEL Juan 07/15/14823 Date Robin Fabian MD CC: Ana Cai DO Da te Dictated: 07/10/14908 Date Transcribed: 07/15/14823 Slot Editor: Signed 15-Jul-2014 Carotid Duplex Ultrasound Result: Comments: See Note; NOTES: [facility] Cardiovascular Services [address] [place] [address] Carotid Duplex Ultrasound 07/10/14908 MR#: [id number] Acct: [id number] Dudley e: ORACIO ELIZALDE Rep #: [id number] : 1960 54 From: Robin Fabian MD Attending Dr: Ana Cai DO Status: REG CLI Ordering Dr: Ana Cai DO Date: 07/10/14 Location: [facility] Sex: M C Admitt ed: Rt. Velocities/BP Lt. Velocities/BP Prox CCA 127/36.3 cm/sec. Prox CCA 136/34 cm/sec. Mid CCA 113/38.3 cm/sec. Mid CCA 117/27.5 cm/sec. Dist CCA 95.3/32.4 cm/sec. Dist CCA 85.4/ 18.7 cm/se c. Prox ICA 73.9/23.6 cm/sec. Prox ICA 69.9/ 20.4 cm/sec. Mid ICA 76.2/28.3 cm/sec. Mid ICA 72.1/23.6 cm/sec. Dist ICA 104/37.7 cm/sec. Dist ICA 80.4/ 24.9 cm/sec. Rt. ICA/CCA = 0.9. Lt. ICA/CCA = 0.7. Prox ECA 106/25.5 cm/sec. Prox ECA 127/20.6 cm/sec. Rt. Vert. 42.8/11.1 cm/sec. Lt. Vert. 55.8/ 24.4 cm/sec. Right Extracranial There is intimal thickening but no significant atherosclerotic p laque noted in the right common carotid artery. There is no significant atherosclerotic plaque noted in the right internal carotid artery. There is no significant atherosclerotic plaque noted in the right external carotid artery. Antegrade flow is noted in the right vertebral artery. Left Extracranial There is intimal thickening but no significant atherosclerotic plaque noted in the left com mon carotid artery. There is intimal thickening but no significant atherosclerotic plaque noted in the left internal carotid artery. There is intimal thickening but no significant atherosclerotic pl aque noted in the left external carotid artery. Antegrade flow is noted in the left vertebral artery. Procedure Carotid Duplex 61775. The exam was diagnostic. Exam performed in department. Interp retation Summary Mild (<50%) stenosis right extracranial internal carotid. Mild (<50%) stenosis left extracranial internal carotid. Flow within the vertebral arteries is antegrade michelle aterally. Ordering Physician: Ana Cai Referring Physician: Lata Valle Performed By: SAMUEL Juan 07/15/14823 Date Robin Fabian MD CC: Ana Cai DO Da te Dictated: 07/10/14 0909 Date Transcribed: 07/15/14823 Slot Editor: Signed 26-Jan-2014 Knee 4 or More Views Result: Comments: See Note; NOTES: [facility] Imaging Services [address] [place] [address] Radiology Report MR#: [id number] Acct: [id number] Name: ORACIO ELIZALDE Rep #: [id number] : 1960 M 53 From: Cuauhtemoc Vo MD PCP: Ana Cai DO Status: REG CLI Study: Knee 4 or More Views Date of Exam: 01/26/14 Exam# [id number] Ordering Dr: Lata Valle MD ERIC DY: X-RAY - RIGHT KNEE REASON FOR EXAM: Male, 53 years old. Knee pain. TECHNIQUE: 4 view(s) of the knee were obtained weightbearing.. COMPARISON: None. FINDI NGS: Normal visualized distal femur. Normal visualized proximal tibia and fibula. Normal proximal tibiofibular articulation. There is mild degenerative arthrosis of the medial femorotibial compartm ent. Normal lateral femorotibial compartment. Normal patellofemoral articulation. Mild synovial thickening. IMPRESSION: Degenerative arthrosis. Mild synovial thickening. Electronically Signed: Cuauhtemoc Vo MD at 13:17 EDT Tel [phone], Service support [phone], RAD/Knee 4 or More Views IM PRESSION: Degenerative arthrosis. Mild synovial thickening. Electronically Signed: Cuauhtemoc Vo MD at 13:17 EDT Tel [phone], Service support [phone], CC: Ana Cai DO; Lata Valle MD Slot Editor: Signed 26-Jan-2014 Knee 4 or More Views Result: Comments: See Note; NOTES: [facility] Imaging Services [address] [place] [address] Radiology Report MR#: [id number] Acct: [id number] Name: ORACIO ELIZALDE Rep #: [id number] : 1960 M 53 From: Cuauhtemoc Vo MD PCP: Ana Cai DO Status: REG CLI Study: Knee 4 or More Views Date of Exam: 01/26/14 Exam# [id number] Ordering Dr: Lata Valle MD ERIC DY: X-RAY - LEFT KNEE REASON FOR EXAM: Male, 53 years old. Knee pain. TECHNIQUE: 4 view(s) of the knee were obtained weightbearing. COMPARISON: None. FINDING S: Normal visualized distal femur. Normal visualized proximal tibia and fibula. Normal proximal tibiofibular articulation. Normal medial femorotibial compartment. Normal lateral femorotibial compar tment. Normal patellofemoral articulation. Minimal synovial thickening. IMPRESSION: Minimal synovial thickening. Electronically Signed: Rosa Ambriz at 13:17 EDT Tel [phone], Service support [phone], RAD/Knee 4 or More Views IMPRESSION: Minimal synovial thickening. Electronically Sig la: Cuauhtemoc Vo MD at 13:17 EDT Tel [phone], Service support [phone], CC: Ana Cai DO; Lata Valle MD Slot Editor: Signed 29-Aug-2013 Sleep Study Report Result: Comments: See Note; NOTES: [facility] SLEEP DISORDER CENTER [address] [place] [address] Polysomnography with NCPAP MR#: [id number] Acct: [id number] Name: ANDRA ELIZALDE DEEPTI Sage Rep #: [id number] : 1960 53 From: Westley Porter MD PCP: Ana Cai DO Status: REG CLI Ordering Dr.: Ana Cai DO Date: 08/21/13 Sex: M C SLEEP HISTORY: This is a CPAP titratio n study performed on this 53-year-old male with a body mass index of 28 and an [place] Sleepiness Scale score of 12. He has a history of loud snoring and witnessed apneas and his diagnostic polysomnog arjun performed on 08/01/2013, showed an overall AHI of 45.1 with a supine AHI of 73.3 and a REM AHI of 29. MEDICATIONS AT THE TIME OF STUDY: Included a multivitamin, aspirin, Simvastatin, Mobic, and Methotrexate. SCORING RULES: Respiratory events were acquired and scored in accordance with the Recommended Standards and Specifications as outlined in the AASM Manual for the Scoring of Sleep and Associated Events (most recent version). Please note that a reference to [facility] AHI in this report is consistent with the current Hypopnea definition according to Medicare Criteria and an AASM AHI refere nce is consistent with the current Hypopnea definition according to the AASM criteria. PROCEDURE: The study was attended continuously by a sleep manager. Monitored parameters included left and r ight EOG, frontal, central, and occipital EEG, mental and submental EMG, left and right anterior tibialis EMG, signal ECG waveform, snore, continuous airflow with PAP device flow signal, chest and abdo juan antonio plethysmography efforts, oxygen saturation with heart rate, and body positioning with video monitoring. SLEEP DATA: Lights off occurred at 10:34 p.m. and lights on at 5:37 a.m. with a total r ecording time of 423.6 minutes and a total sleep time of 372.4 minutes. Sleep efficiency was 87.9% and sleep latency was 10.7 minutes. There were 6 REM periods with a REM latency of 63.5 minutes. Sl ow wave sleep was not detected during this study. Other sleep stages include stage N1, which represented 9.8% of total sleep time, stage N2 represented 71.7% of total sleep time, and stage REM 18.5%. RESPIRATORY DATA: The total AHI during the study was 1.5 by CMS criteria and 5.8 AASM criteria. In REM sleep the total AHI was 0.9 and 3.5 respectively and in the supine position the total AHI was 9 .9. The patient was supine for 2 hours and 43 minutes of sleep. SaO2 ranged from 92% to 99% during sleep with a mean of 95.9%. There were no desaturations below 88%. EKG DATA: EKG rate ranged fro m 47 to 83 beats per minute with a mean of 60.5 beats per minute. LIMB MOVEMENT DATA: Leg movement index was 21.3 per hour. Nasal CPAP was initiated and titrated. At a setting of 16 cm, with an EP R of 3, REM sleep was recorded for 20 minutes and nonREM sleep for 26 minutes resulting in an AHI of 0 for a total sleep time, supine sleep and REM sleep, and a minimum oxygen saturation of 95%. IMPR ESSION: 1. Obstructive sleep apnea. 2. Periodic leg movements of sleep. RECOMMENDATION: Nasal CPAP of 16 cm with an EPR of 3 and a Simplus full face mask, medium, with heated humidity. Periodic leg movements are of unclear clinical significance and may improve with adequate CPAP therapy. If they persist and are associated with ongoing excessive daytime somnolence, dopaminergic agents maybe of benefit. INTERPRETING PHYSICIAN: Westley Porter MD CC: Westley Porter MD [id number] 08/29/13 1010 <Electronically signed by Westley Porter MD > CRONIN Date Westley Porter MD Co- signature (if applicable) Date Signed 07-Aug-2013 Sleep Study Report Result: Comments: See Note; NOTES: [facility] SLEEP DISORDER CENTER [address] [place] [address] Polysomnography MR#: [id number] Acct: [id number] Name: ORACIO ELIZALDE Rep #: [id number] : 1960 53 From: Terrence Turner MD PCP: Ana Cai DO Status: REG CLI Ordering DrShahla: Ana Cai DO Date: 08/01/13 Sex: M C REFERRING PHYSICIAN: Dr. Cai. SLEEP HISTORY: The patient is a 53-year-old gentleman with a calculated body mass index of 28 and an [place] Sleepiness Scale score of 12/24. He has symptoms of snoring, witnessed apneas, daytime sleepiness, waking up gasping for air, recurrent awakenings during the night, and dry mouth in the morning. Thus he is undergoing this overnight polysomnogram to evaluate for possible sleep disordered breathing or other p rimary sleep disorder. ADDITIONAL MEDICAL HISTORY: Is significant for migraine, hyperlipidemia, anxiety, carotid stenosis, psoriatic arthropathy, hypertension, osteoarthritis. MEDICATIONS REPORTED BY PATIENT AT TIME OF STUDY: Include multivitamin, simvastatin, Mobic, methotrexate SCORING RULES: Respiratory events were acquired and scored in accordance with the Recommended Standards and Spec ifications as outlined in the AASM Manual for the Scoring of Sleep and Associated Events (most recent version). Please note that a reference to [facility] AHI in this report is consistent with the current Hy popnea definition according to Medicare Criteria and an [facility] AHI reference is consistent with the current Hypopnea definition according to the AASM criteria. PROCEDURE: The study was attended kai nuously by a sleep manager. Monitored parameters included left and right EOG, frontal, central, and occipital EEG, mental and submental EMG, left and right anterior tibialis EMG, signal ECG wavefor m, snore, continuous airflow with thermistor and nasal pressure transducer, chest and abdominal plethysmography efforts, oxygen saturation with heart rate, and body positioning with video monitoring. SLEEP STUDY DATA: The overnight polysomnogram began at 10:16:30 p.m. and ended at 05:00:30 a.m. Total recording time was 404.0 minutes of which the patient slept 355.8 minutes for a calculated slee p efficiency of 88.1%. Sleep latency was 31.2 minutes with a REM latency of 87.5 minutes. Sleep stage percentages were as follows: N1 26.7%, N2 56%, N3 0.4% and REM 16.9% of total sleep. During this st udy, there were a total of 275 arousals resulting in an overall arousal index of 46.4. Note the majority of these arousals were of respiratory nature with a respiratory arousal index of 43.2. RESPI RATORY DATA: Snoring was present throughout the recording. Based on AASM 2012 scoring guidelines, there were a total of 269 respiratory events consisting of 7 obstructive apneas, 1 central apnea, 3 m ixed apneas, and the rest being of obstructive hypopneic nature. The overall apnea/hypopnea index was 45.4. Note that REM sleep did not significantly influence the apnea/hypopnea index, but supine po sitioning did. The supine index was 73.3 over an hour and 35 minutes versus a nonsupine index of 35.1 over 4 hours and 20 minutes. Mean oxygen saturation during sleep was 95% with a minimum oxygen sat uration of 84%. The patient spent 0.2 minutes with an oxygen saturation less than 88%. EKG DATA: The mean heart rate during sleep was 60 beats per minute. No significant arrhythmias were noted duri ng the recording. LIMB MOVEMENT DATA: There were a total of 56 periodic limb movements during this recording resulting in a periodic limb movement index of 9.4. Two (2) of these limb movements were associated with arousal resulting in a periodic limb movement arousal index of 0.3. DIAGNOSIS: Obstructive sleep apnea syndrome. (327.23) IMPRESSION: 1. Severe obstructive sleep apnea syndrome, w hich was even worse when the patient was supine. Respiratory events were associated with arousal as well as oxygen desaturations as noted above. 2. Abnormal sleep architecture likely secondary to fir st night effect, possible medication effect, and respiratory events as above. RECOMMENDATIONS: 1. Given subjective complaints, the patient having multiple medical conditions that could be exacerbate d by sleep disordered breathing, and the findings of this study, recommend patient be treated with positive airway pressure therapy. If this is the choice of therapy, the patient should undergo a posi tive airway pressure titration during which I would strongly encourage the patient to be in the supine position. 2. Recommend the patient be advised to avoid activities or medications that could exa cerbate sleep disorder breathing. 3. Recommend the patient be advised not to drive or operate heavy machinery when sleepy. INTERPRETING PHYSICIAN: Terrence Turner Jr., MD CC: Terrence Alejandro [id number] 08/07/13 1234 <Electronically signed by Terrence Turner MD> CRONIN Date Terrence Turner MD Co-signatu re (if applicable) Date Signed 05-Aug-2013 Chest PA and Lateral Result: Comments: See Note; NOTES: [facility] Imaging Services [address] [place] [address] Radiology Report MR#: [id number] Acct: [id number] Name: ORACIO ELIZALDE Rep #: [id number] : 1960 M 53 From: Wesley Ramirez MD PCP: Ana Cai DO Status: REG CLI Study: Chest PA and Lateral Date of Exam: 08/05/13 Exam# [id number] Ordering Dr: Ana Cai DO STUDY: X-RA Y CHEST REASON FOR EXAM: Male, 53 years old. Cough TECHNIQUE: PA and lateral views of the chest. COMPARISON: 07/05/2005 FINDINGS: The lungs are clear and e xpanded. There is no demonstrated pleural abnormality. Normal size heart. Normal mediastinum and ilia. Normal visualized pulmonary arteries. Normal visualized aortic arch and descending thoracic ao rta. Normal visualized thoracic spine. Normal visualized ribs, clavicles, and shoulders. There is no demonstrated abnormality of the visualized soft tissue structures of the upper abdomen. IMPRESSION: 1. No acute cardiopulmonary process. No focal pneumonia. Electronically Signed: Wesley Ramirez M.D. at 13:55 EST , Service sup port [phone], CC: Ana Cai DO Slot Editor: Signed Immunization Name Dates Details Tdap (7 years and up) on: 08-Nov-2015 Comments: Site: Deltoid (Left) Lot #: [id number] Family History Unknown Family Member Name Dates Details Brother 1 Comments: diabetic Status: Active Father Comments: in 60s- had cad and brain tumor Status: Active Mother Comments: in her 80s- from leukemia- and had dm and heart disease and alzheimers Status: Active Social History Name Dates Details Alcohol Use Comments: Occasional alcohol use Status: Active Caffeine Use Comments: 3 or 4 cups of coffee daily Status: Active No Drug Use Status: Active Tobacco Use: Current every day smoker. Comments: Smokes a pipe-3 or 4 daily Status: Active Smoking Status Name Dates Details Current every day smoker Vital Signs Date Test Result Details :19 Temperature 97.1 f Comments: Method: Temporal Pulse 70 /min Comments: Pattern: Regular Respiration Rate 16 /min Comments: Pattern: Unlabored O2 SAT 98 % Comments: Room air BP Systolic 115 mm[Hg] Comments: Patient Position: Sitting; Cuff Location: Left Arm; Cuff Size: Standard BP Diastolic 70 mm[Hg] Comments: Patient Position: Sitting; Cuff Location: Left Arm; Cuff Size: Standard Weight 215 lb Height 70 in Body Mass Index Calculated 30.85 kg/m2 Body Surface Area Calculated 2.15 m2 :51 Temperature 97.6 f Comments: Method: Temporal Pulse 80 /min Comments: Pattern: Regular Respiration Rate 20 /min Comments: Pattern: Unlabored O2 SAT 98 % Comments: Room air BP Systolic 120 mm[Hg] Comments: Patient Position: Sitting; Cuff Location: Left Arm; Cuff Size: Standard BP Diastolic 80 mm[Hg] Comments: Patient Position: Sitting; Cuff Location: Left Arm; Cuff Size: Standard Weight 221 lb Height 70 in Body Mass Index Calculated 31.71 kg/m2 Body Surface Area Calculated 2.18 m2 :32 Temperature 97.7 f Comments: Method: Temporal Pulse 75 /min Comments: Pattern: Regular Respiration Rate 16 /min Comments: Pattern: Unlabored BP Systolic 124 mm[Hg] Comments: Patient Position: Sitting; Cuff Location: Left Arm; Cuff Size: Standard BP Diastolic 64 mm[Hg] Comments: Patient Position: Sitting; Cuff Location: Left Arm; Cuff Size: Standard Weight 221 lb Height 70 in Body Mass Index Calculated 31.71 kg/m2 Body Surface Area Calculated 2.18 m2 :08 Temperature 96.7 f Comments: Method: Oral Pulse 75 /min Comments: Pattern: Regular Respiration Rate 16 /min Comments: Pattern: Unlabored O2 SAT 95 % Comments: Room air BP Systolic 122 mm[Hg] Comments: Patient Position: Sitting; Cuff Location: Left Arm; Cuff Size: Standard BP Diastolic 74 mm[Hg] Comments: Patient Position: Sitting; Cuff Location: Left Arm; Cuff Size: Standard Weight 217 lb Height 70 in Body Mass Index Calculated 31.14 kg/m2 Body Surface Area Calculated 2.16 m2 :32 Temperature 97 f Comments: Method: Temporal Pulse 79 /min Comments: Pattern: Regular Respiration Rate 16 /min Comments: Pattern: Unlabored O2 SAT 96 % Comments: Room air BP Systolic 108 mm[Hg] Comments: Patient Position: Sitting; Cuff Location: Left Arm; Cuff Size: Standard BP Diastolic 60 mm[Hg] Comments: Patient Position: Sitting; Cuff Location: Left Arm; Cuff Size: Standard Weight 218 lb Height 70 in Body Mass Index Calculated 31.28 kg/m2 Body Surface Area Calculated 2.17 m2 :45 Comments: 122/80 recheck bp Temperature 96.7 f Pulse 87 /min Comments: Pattern: Regular Respiration Rate 18 /min Comments: Pattern: Unlabored O2 SAT 96 % Comments: Room air BP Systolic 138 mm[Hg] Comments: Patient Position: Sitting; Cuff Location: Left Arm; Cuff Size: Standard BP Diastolic 74 mm[Hg] Comments: Patient Position: Sitting; Cuff Location: Left Arm; Cuff Size: Standard Weight 212 lb Height 70 in Body Mass Index Calculated 30.42 kg/m2 Body Surface Area Calculated 2.14 m2 :30 Temperature 97.6 f Comments: Method: Temporal Pulse 76 /min Comments: Pattern: Regular Respiration Rate 20 /min Comments: Pattern: Unlabored O2 SAT 98 % Comments: Room air BP Systolic 120 mm[Hg] Comments: Patient Position: Sitting; Cuff Location: Left Arm; Cuff Size: Standard BP Diastolic 78 mm[Hg] Comments: Patient Position: Sitting; Cuff Location: Left Arm; Cuff Size: Standard Weight 211 lb Height 70 in Body Mass Index Calculated 30.28 kg/m2 Body Surface Area Calculated 2.14 m2 :41 Temperature 97.1 f Comments: Method: Temporal Pulse 74 /min Comments: Pattern: Regular Respiration Rate 16 /min Comments: Pattern: Unlabored O2 SAT 96 % Comments: Room air BP Systolic 126 mm[Hg] Comments: Patient Position: Sitting; Cuff Location: Left Arm; Cuff Size: Standard BP Diastolic 82 mm[Hg] Comments: Patient Position: Sitting; Cuff Location: Left Arm; Cuff Size: Standard Weight 209 lb Height 70 in Body Mass Index Calculated 29.99 kg/m2 Body Surface Area Calculated 2.13 m2 :23 Temperature 97.2 f Comments: Method: Temporal Pulse 68 /min Comments: Pattern: Regular Respiration Rate 16 /min Comments: Pattern: Unlabored BP Systolic 124 mm[Hg] Comments: Patient Position: Sitting; Cuff Location: Left Arm; Cuff Size: Standard BP Diastolic 78 mm[Hg] Comments: Patient Position: Sitting; Cuff Location: Left Arm; Cuff Size: Standard Weight 206 lb Height 70 in Body Mass Index Calculated 29.56 kg/m2 Body Surface Area Calculated 2.11 m2 :36 Temperature 97.6 f Comments: Method: Temporal Pulse 70 /min Comments: Pattern: Regular Respiration Rate 20 /min Comments: Pattern: Unlabored O2 SAT 98 % Comments: Room air BP Systolic 116 mm[Hg] Comments: Patient Position: Sitting; Cuff Location: Left Arm; Cuff Size: Standard BP Diastolic 78 mm[Hg] Comments: Patient Position: Sitting; Cuff Location: Left Arm; Cuff Size: Standard Weight 196 lb Height 70 in Body Mass Index Calculated 28.12 kg/m2 Body Surface Area Calculated 2.07 m2 :56 Temperature 96.7 f Comments: Method: Temporal Pulse 72 /min Comments: Pattern: Regular Respiration Rate 16 /min Comments: Pattern: Unlabored O2 SAT 97 % Comments: Room air BP Systolic 112 mm[Hg] Comments: Patient Position: Sitting; Cuff Location: Left Arm; Cuff Size: Standard BP Diastolic 68 mm[Hg] Comments: Patient Position: Sitting; Cuff Location: Left Arm; Cuff Size: Standard Weight 197 lb Height 70 in Body Mass Index Calculated 28.27 kg/m2 Body Surface Area Calculated 2.07 m2 :36 Temperature 97.5 f Comments: Method: Temporal Pulse 74 /min Comments: Pattern: Regular Respiration Rate 16 /min Comments: Pattern: Unlabored O2 SAT 98 % Comments: Room air BP Systolic 128 mm[Hg] Comments: Patient Position: Sitting; Cuff Location: Left Arm; Cuff Size: Standard BP Diastolic 82 mm[Hg] Comments: Patient Position: Sitting; Cuff Location: Left Arm; Cuff Size: Standard Weight 197 lb Height 70 in Body Mass Index Calculated 28.27 kg/m2 Body Surface Area Calculated 2.07 m2 :47 Temperature 96.9 f Comments: Method: Temporal Pulse 68 /min Comments: Pattern: Regular Respiration Rate 16 /min Comments: Pattern: Unlabored O2 SAT 95 % Comments: Room air BP Systolic 120 mm[Hg] Comments: Patient Position: Sitting; Cuff Location: Left Arm; Cuff Size: Standard BP Diastolic 64 mm[Hg] Comments: Patient Position: Sitting; Cuff Location: Left Arm; Cuff Size: Standard Weight 196 lb Height 70 in Body Mass Index Calculated 28.12 kg/m2 Body Surface Area Calculated 2.07 m2 :56 Temperature 98.3 f Comments: Method: Temporal Pulse 88 /min Comments: Pattern: Regular Respiration Rate 16 /min Comments: Pattern: Unlabored O2 SAT 98 % Comments: Room air BP Systolic 128 mm[Hg] Comments: Patient Position: Sitting; Cuff Location: Left Arm; Cuff Size: Standard BP Diastolic 74 mm[Hg] Comments: Patient Position: Sitting; Cuff Location: Left Arm; Cuff Size: Standard Weight 197 lb Height 70 in Body Mass Index Calculated 28.27 kg/m2 Body Surface Area Calculated 2.07 m2 :28 Temperature 97.6 f Comments: Method: Temporal Pulse 78 /min Comments: Pattern: Regular Respiration Rate 20 /min Comments: Pattern: Unlabored O2 SAT 98 % Comments: Room air BP Systolic 124 mm[Hg] Comments: Patient Position: Sitting; Cuff Location: Left Arm; Cuff Size: Large BP Diastolic 80 mm[Hg] Comments: Patient Position: Sitting; Cuff Location: Left Arm; Cuff Size: Large Weight 198 lb Height 70 in Body Mass Index Calculated 28.41 kg/m2 Body Surface Area Calculated 2.08 m2 :52 Temperature 98 f Pulse 75 /min Comments: Pattern: Regular Respiration Rate 16 /min Comments: Pattern: Unlabored O2 SAT 96 % Comments: Room air BP Systolic 112 mm[Hg] Comments: Patient Position: Sitting; Cuff Location: Left Arm; Cuff Size: Standard BP Diastolic 70 mm[Hg] Comments: Patient Position: Sitting; Cuff Location: Left Arm; Cuff Size: Standard Weight 198 lb Height 70 in Body Mass Index Calculated 28.41 kg/m2 Body Surface Area Calculated 2.08 m2 :23 Temperature 97.2 f Comments: Method: Temporal Pulse 76 /min Comments: Pattern: Regular Respiration Rate 15 /min Comments: Pattern: Unlabored O2 SAT 96 % Comments: Room air BP Systolic 124 mm[Hg] Comments: Patient Position: Sitting; Cuff Location: Left Arm; Cuff Size: Standard BP Diastolic 72 mm[Hg] Comments: Patient Position: Sitting; Cuff Location: Left Arm; Cuff Size: Standard Weight 198 lb Height 70 in Body Mass Index Calculated 28.41 kg/m2 Body Surface Area Calculated 2.08 m2 :52 Temperature 97.8 f Comments: Method: Temporal Pulse 82 /min Comments: Pattern: Regular Respiration Rate 18 /min Comments: Pattern: Unlabored O2 SAT 97 % Comments: Room air BP Systolic 132 mm[Hg] Comments: Patient Position: Sitting; Cuff Location: Left Arm; Cuff Size: Standard BP Diastolic 82 mm[Hg] Comments: Patient Position: Sitting; Cuff Location: Left Arm; Cuff Size: Standard Weight 198 lb Height 70 in Body Mass Index Calculated 28.41 kg/m2 Body Surface Area Calculated 2.08 m2 :38 Temperature 97.4 f Comments: Method: Temporal Pulse 72 /min Comments: Pattern: Regular Respiration Rate 16 /min Comments: Pattern: Unlabored O2 SAT 96 % Comments: Room air BP Systolic 116 mm[Hg] Comments: Patient Position: Sitting; Cuff Location: Left Arm; Cuff Size: Standard BP Diastolic 60 mm[Hg] Comments: Patient Position: Sitting; Cuff Location: Left Arm; Cuff Size: Standard Weight 197 lb Height 70 in Body Mass Index Calculated 28.27 kg/m2 Body Surface Area Calculated 2.07 m2 :23 Comments: weight checked with steel toed boots on Temperature 97.4 f Comments: Method: Temporal Pulse 64 /min Comments: Pattern: Regular Respiration Rate 16 /min Comments: Pattern: Unlabored BP Systolic 122 mm[Hg] Comments: Patient Position: Sitting; Cuff Location: Left Arm; Cuff Size: Standard BP Diastolic 78 mm[Hg] Comments: Patient Position: Sitting; Cuff Location: Left Arm; Cuff Size: Standard Weight 202.8 lb Height 70 in Body Mass Index Calculated 29.1 kg/m2 Body Surface Area Calculated 2.1 m2 :07 Temperature 97.8 f Comments: Method: Temporal Pulse 60 /min Comments: Pattern: Regular Respiration Rate 15 /min Comments: Pattern: Unlabored O2 SAT 98 % Comments: Room air BP Systolic 110 mm[Hg] Comments: Patient Position: Sitting; Cuff Location: Left Arm; Cuff Size: Standard BP Diastolic 72 mm[Hg] Comments: Patient Position: Sitting; Cuff Location: Left Arm; Cuff Size: Standard Weight 198 lb Height 70 in Body Mass Index Calculated 28.41 kg/m2 Body Surface Area Calculated 2.08 m2 :55 Temperature 98.3 f Comments: Method: Temporal Pulse 80 /min Comments: Pattern: Regular Respiration Rate 16 /min Comments: Pattern: Unlabored O2 SAT 96 % Comments: Room air BP Systolic 122 mm[Hg] Comments: Patient Position: Sitting; Cuff Location: Left Arm; Cuff Size: Standard BP Diastolic 68 mm[Hg] Comments: Patient Position: Sitting; Cuff Location: Left Arm; Cuff Size: Standard Weight 186.4 lb Height 70 in Body Mass Index Calculated 26.75 kg/m2 Body Surface Area Calculated 2.03 m2 :53 Temperature 98.4 f Comments: Method: Temporal Pulse 64 /min Comments: Pattern: Regular Respiration Rate 15 /min Comments: Pattern: Unlabored O2 SAT 96 % Comments: Room air BP Systolic 128 mm[Hg] Comments: Patient Position: Sitting; Cuff Location: Left Arm; Cuff Size: Standard BP Diastolic 74 mm[Hg] Comments: Patient Position: Sitting; Cuff Location: Left Arm; Cuff Size: Standard Weight 192 lb Height 70 in Body Mass Index Calculated 27.55 kg/m2 Body Surface Area Calculated 2.05 m2 :12 Pulse 65 /min Comments: Pattern: Regular Respiration Rate 18 /min Comments: Pattern: Unlabored O2 SAT 99 % Comments: Room air BP Systolic 122 mm[Hg] Comments: Patient Position: Sitting; Cuff Location: Left Arm; Cuff Size: Large BP Diastolic 60 mm[Hg] Comments: Patient Position: Sitting; Cuff Location: Left Arm; Cuff Size: Large Weight 188 lb Height 70 in Body Mass Index Calculated 26.97 kg/m2 Body Surface Area Calculated 2.03 m2 :19 Temperature 98 f Comments: Method: Temporal Pulse 70 /min Comments: Pattern: Regular Respiration Rate 16 /min Comments: Pattern: Unlabored BP Systolic 104 mm[Hg] Comments: Patient Position: Sitting; Cuff Location: Left Arm; Cuff Size: Standard BP Diastolic 68 mm[Hg] Comments: Patient Position: Sitting; Cuff Location: Left Arm; Cuff Size: Standard Weight 187 lb Height 70 in Body Mass Index Calculated 26.83 kg/m2 Body Surface Area Calculated 2.03 m2 :47 Temperature 98.9 f Pulse 74 /min Comments: Pattern: Regular Respiration Rate 16 /min Comments: Pattern: Unlabored BP Systolic 102 mm[Hg] Comments: Patient Position: Sitting; Cuff Location: Left Arm; Cuff Size: Standard BP Diastolic 72 mm[Hg] Comments: Patient Position: Sitting; Cuff Location: Left Arm; Cuff Size: Standard Weight 190 lb Height 70 in Body Mass Index Calculated 27.26 kg/m2 Body Surface Area Calculated 2.04 m2 :02 Temperature 96.7 f Pulse 68 /min Comments: Pattern: Regular Respiration Rate 16 /min Comments: Pattern: Unlabored BP Systolic 102 mm[Hg] Comments: Patient Position: Sitting; Cuff Location: Left Arm; Cuff Size: Large BP Diastolic 70 mm[Hg] Comments: Patient Position: Sitting; Cuff Location: Left Arm; Cuff Size: Large Weight 187 lb Height 70 in Body Mass Index Calculated 26.83 kg/m2 Body Surface Area Calculated 2.03 m2 :39 Temperature 98.4 f Pulse 72 /min Comments: Pattern: Regular Respiration Rate 16 /min Comments: Pattern: Unlabored BP Systolic 136 mm[Hg] Comments: Patient Position: Sitting; Cuff Location: Left Arm; Cuff Size: Large BP Diastolic 80 mm[Hg] Comments: Patient Position: Sitting; Cuff Location: Left Arm; Cuff Size: Large Weight 197 lb Height 70 in Body Mass Index Calculated 28.27 kg/m2 Body Surface Area Calculated 2.07 m2 :01 Temperature 98.3 f Comments: Method: Oral Pulse 96 /min Comments: Pattern: Regular Respiration Rate 18 /min Comments: Pattern: Unlabored O2 SAT 98 % Comments: Room air BP Systolic 120 mm[Hg] Comments: Patient Position: Sitting; Cuff Location: Left Arm; Cuff Size: Standard BP Diastolic 72 mm[Hg] Comments: Patient Position: Sitting; Cuff Location: Left Arm; Cuff Size: Standard Weight 200 lb Height 70 in Body Mass Index Calculated 28.7 kg/m2 Body Surface Area Calculated 2.09 m2 :27 Temperature 98.6 f Pulse 68 /min Comments: Pattern: Regular Respiration Rate 16 /min Comments: Pattern: Unlabored BP Systolic 106 mm[Hg] Comments: Patient Position: Sitting; Cuff Location: Left Arm; Cuff Size: Large BP Diastolic 68 mm[Hg] Comments: Patient Position: Sitting; Cuff Location: Left Arm; Cuff Size: Large Weight 200 lb Height 70 in Body Mass Index Calculated 28.7 kg/m2 Body Surface Area Calculated 2.09 m2 :40 Temperature 97.2 f Pulse 72 /min Comments: Pattern: Regular Respiration Rate 16 /min Comments: Pattern: Unlabored BP Systolic 112 mm[Hg] Comments: Patient Position: Sitting; Cuff Location: Left Arm; Cuff Size: Large BP Diastolic 74 mm[Hg] Comments: Patient Position: Sitting; Cuff Location: Left Arm; Cuff Size: Large Weight 197 lb Height 70 in Body Mass Index Calculated 28.27 kg/m2 Body Surface Area Calculated 2.07 m2 :58 Temperature 97.7 f Pulse 76 /min Comments: Pattern: Regular Respiration Rate 16 /min Comments: Pattern: Unlabored BP Systolic 116 mm[Hg] Comments: Patient Position: Sitting; Cuff Location: Left Arm; Cuff Size: Large BP Diastolic 74 mm[Hg] Comments: Patient Position: Sitting; Cuff Location: Left Arm; Cuff Size: Large Weight 201 lb Height 70 in Body Mass Index Calculated 28.84 kg/m2 Body Surface Area Calculated 2.09 m2 :10 Temperature 97.2 f Pulse 60 /min Comments: Pattern: Regular Respiration Rate 16 /min Comments: Pattern: Unlabored BP Systolic 116 mm[Hg] Comments: Patient Position: Sitting; Cuff Location: Left Arm; Cuff Size: Large BP Diastolic 64 mm[Hg] Comments: Patient Position: Sitting; Cuff Location: Left Arm; Cuff Size: Large Weight 193 lb Height 70 in Body Mass Index Calculated 27.69 kg/m2 Body Surface Area Calculated 2.06 m2 :20 Temperature 98.1 f Pulse 64 /min Comments: Pattern: Regular Respiration Rate 16 /min Comments: Pattern: Unlabored BP Systolic 124 mm[Hg] Comments: Patient Position: Sitting; Cuff Location: Left Arm; Cuff Size: Large BP Diastolic 74 mm[Hg] Comments: Patient Position: Sitting; Cuff Location: Left Arm; Cuff Size: Large Weight 191 lb Height 70 in Body Mass Index Calculated 27.41 kg/m2 Body Surface Area Calculated 2.05 m2 :32 Temperature 99.4 f Pulse 76 /min Comments: Pattern: Regular Respiration Rate 16 /min Comments: Pattern: Unlabored BP Systolic 130 mm[Hg] Comments: Patient Position: Sitting; Cuff Location: Left Arm; Cuff Size: Large BP Diastolic 82 mm[Hg] Comments: Patient Position: Sitting; Cuff Location: Left Arm; Cuff Size: Large Weight 185 lb Height 70 in Body Mass Index Calculated 26.54 kg/m2 Body Surface Area Calculated 2.02 m2 :16 Temperature 97.1 f Pulse 56 /min Comments: Pattern: Regular Respiration Rate 16 /min Comments: Pattern: Unlabored BP Systolic 112 mm[Hg] Comments: Patient Position: Sitting; Cuff Location: Left Arm; Cuff Size: Large BP Diastolic 70 mm[Hg] Comments: Patient Position: Sitting; Cuff Location: Left Arm; Cuff Size: Large Weight 182 lb Height 70 in Body Mass Index Calculated 26.11 kg/m2 Body Surface Area Calculated 2.01 m2 :47 Temperature 98.3 f Pulse 64 /min Comments: Pattern: Regular Respiration Rate 18 /min Comments: Pattern: Unlabored BP Systolic 116 mm[Hg] Comments: Patient Position: Sitting; Cuff Location: Left Arm; Cuff Size: Large BP Diastolic 70 mm[Hg] Comments: Patient Position: Sitting; Cuff Location: Left Arm; Cuff Size: Large Weight 178 lb Height 70 in Body Mass Index Calculated 25.54 kg/m2 Body Surface Area Calculated 1.99 m2 :53 Temperature 99.3 f Comments: Method: Oral Pulse 60 /min Comments: Pattern: Regular Respiration Rate 16 /min Comments: Pattern: Unlabored BP Systolic 98 mm[Hg] Comments: Patient Position: Sitting; Cuff Location: Left Arm; Cuff Size: Large BP Diastolic 62 mm[Hg] Comments: Patient Position: Sitting; Cuff Location: Left Arm; Cuff Size: Large Weight 179 lb Height 70 in Body Mass Index Calculated 25.68 kg/m2 Body Surface Area Calculated 1.99 m2 :43 Temperature 97.1 f Pulse 76 /min Comments: Pattern: Regular Respiration Rate 16 /min Comments: Pattern: Unlabored BP Systolic 118 mm[Hg] Comments: Patient Position: Sitting; Cuff Location: Left Arm; Cuff Size: Standard BP Diastolic 68 mm[Hg] Comments: Patient Position: Sitting; Cuff Location: Left Arm; Cuff Size: Standard Weight 173 lb Height 70 in Body Mass Index Calculated 24.82 kg/m2 Body Surface Area Calculated 1.96 m2 :28 Temperature 97.8 f Pulse 76 /min Comments: Pattern: Regular Respiration Rate 18 /min Comments: Pattern: Unlabored BP Systolic 110 mm[Hg] Comments: Patient Position: Sitting; Cuff Location: Left Arm; Cuff Size: Large BP Diastolic 70 mm[Hg] Comments: Patient Position: Sitting; Cuff Location: Left Arm; Cuff Size: Large Weight 198 lb :27 Temperature 98 f Pulse 76 /min Comments: Pattern: Regular Respiration Rate 18 /min Comments: Pattern: Unlabored BP Systolic 126 mm[Hg] Comments: Patient Position: Sitting; Cuff Location: Left Arm; Cuff Size: Standard BP Diastolic 72 mm[Hg] Comments: Patient Position: Sitting; Cuff Location: Left Arm; Cuff Size: Standard Weight 198 lb Height 69.75 in Body Mass Index Calculated 28.61 kg/m2 Body Surface Area Calculated 2.07 m2 Results Date Description Value Details :32 CBC W/Diff, Automated Comments: [facility] [id number] [place], [place], [id number] Absolute Lymph 1.42 {X10_3/ul} (Normal) Range: 0.83-4.51 Absolute Neut 4.4 {X10_3/uL} (Normal) Range: 2.0-7.7 IM GRAN % 0.300 % (Normal) Range: 0.0-0.9 Comments: IG% - Immature Granulocytes (promyelocytes, myelocytes andmetamyelocytes) > 1% indicates that a LEFT SHIFT is Present. BASO% 1.0 % (Normal) Range: 0-1 EO% 2.2 % (Normal) Range: 0-5 MONO% 11.8 % (Abnormal) Range: 0-10 LY% 20.7 % (Normal) Range: 19-41 NEUT% 64.0 % (Normal) Range: 47-70 MPV 9.3 fL (Normal) Range: 6.2-12.0 PLT 278 K/mm3 (Normal) Range: 150-450 RDW SD 44.6 fL (Abnormal) Range: 35.1-43.9 RDW CV 13.3 % (Normal) Range: 11.6-14.6 MCHC 34.8 {g/gl} (Normal) Range: 32-36 MCH 32.3 pg (Abnormal) Range: 27.0-32.0 MCV 92.8 fL (Normal) Range: 80-94 HCT 46.6 % (Normal) Range: 40-54 HGB 16.2 g/dL (Normal) Range: 13.0-16.5 RBC 5.02 {M/mm3} (Normal) Range: 4.6-6.2 WBC 6.9 K/mm3 (Normal) Range: 4.4-11.0 19-Jul-20189:32 Comprehensive Metabolic Profil Comments: [facility] [id number] [place], [place], [id number] GAP 7 (Normal) Range: 5-15 CO2 28.0 mmol/L (Normal) Range: 21.0-32.0 CL 107 mmol/L (Normal) Range: 98-107 K 4.0 mmol/L (Normal) Range: 3.5-5.1 NA 142 mmol/L (Normal) Range: 136-145 T BILI 0.70 mg/dL (Normal) Range: 0.20-1.00 ALT 52 U/L (Normal) Range: 16-61 ALK P 62 U/L (Normal) Range: 45-117 AST 26 U/L (Normal) Range: 15-37 CA 8.6 mg/dL (Normal) Range: 8.5-10.1 A/G 1.2 {RATIO} (Normal) Range: 0.9-2.4 GLOB 3.1 g/dL (Normal) Range: 2.2-4.2 ALB 3.6 g/dL (Normal) Range: 3.2-5.0 T PROT 6.7 g/dL (Normal) Range: 6.4-8.2 BUN/CRE 17.8 {RATIO} (Normal) Range: 10-20 EST GFR - AA 111 mL/min (Normal) Comments: GFR Calc EST GFR 92 mL/min (Normal) Comments: Non- GFR Calc CREAT,SERUM 0.90 mg/dL (Normal) Range: 0.70-1.30 Comments: The validity of the calculated GFR AND GFRAA in patients over70 years has not been determined. Clinical correlation isessential. BUN 16 mg/dL (Normal) Range: 7-18 GLU 112 mg/dL (Abnormal) Range: 74-106 Comments: Fasting Glucose result from 100 to 125 mg/dLsuggests IMPAIRED HOMEOSTASIS per A.D.A. criteria.Please note revised GLUCOSE reference range evzxoumic47/02/2018. :42 Drug Screen (7drug + Comments: PATIENT NOT FASTINGPERFORMED BY: [facility]TS [id number] [place] [id number] Information: [id number] LM; positive for amphetamines as it should be Alcohol) (72395) Ethanol, Urine Negative % (Normal) Phencyclidine Negative ng/mL (Normal) Opiates Negative ng/mL (Normal) Comments: Opiate test includes Codeine and Morphine only. Cocaine (Metab.) Negative ng/mL (Normal) Cannabinoid Negative ng/mL (Normal) Benzodiazepines Negative ng/mL (Normal) Barbiturate Negative ng/mL (Normal) Methamphetamine Negative (Normal) Amphetamine GC/MS Conf 1680 ng/mL (Normal) Amphetamine Positive (Abnormal) Amphetamines Positive (Abnormal) Comments: Amphetamine test includes Amphetamine and Methamphetamine. Amphetamines, Urine See Final Results ng/mL Comments: Amphetamine test includes Amphetamine and Methamphetamine. (Normal) :58 CBC W/Diff, Automated Comments: [facility] [address] [place], [address] Absolute Lymph 1.59 {X10_3/ul} (Normal) Range: 0.83-4.51 Absolute Neut 3.4 {X10_3/uL} (Normal) Range: 2.0-7.7 IM GRAN % 0.300 % (Normal) Range: 0.0-0.9 Comments: IG% - Immature Granulocytes (promyelocytes, myelocytes andmetamyelocytes) > 1% indicates that a LEFT SHIFT is Present. BASO% 0.9 % (Normal) Range: 0-1 EO% 2.4 % (Normal) Range: 0-5 MONO% 11.7 % (Abnormal) Range: 0-10 LY% 27.0 % (Normal) Range: 19-41 NEUT% 57.7 % (Normal) Range: 47-70 MPV 9.9 fL (Normal) Range: 6.2-12.0 PLT 305 K/mm3 (Normal) Range: 150-450 RDW SD 43.3 fL (Normal) Range: 35.1-43.9 RDW CV 13.1 % (Normal) Range: 11.6-14.6 MCHC 35.8 {g/gl} (Normal) Range: 32-36 MCH 33.3 pg (Abnormal) Range: 27.0-32.0 MCV 93.0 fL (Normal) Range: 80-94 HCT 45.5 % (Normal) Range: 40-54 HGB 16.3 g/dL (Normal) Range: 13.0-16.5 RBC 4.89 {M/mm3} (Normal) Range: 4.6-6.2 WBC 5.9 K/mm3 (Normal) Range: 4.4-11.0 74-Rew-404143:58 Comprehensive Metabolic Profil Comments: [facility] [address], [place], [id number] GAP 9 (Normal) Range: 5-15 CO2 30.0 mmol/L (Normal) Range: 21.0-32.0 CL 104 mmol/L (Normal) Range: 98-107 K 4.0 mmol/L (Normal) Range: 3.5-5.1 NA 143 mmol/L (Normal) Range: 136-145 T BILI 0.70 mg/dL (Normal) Range: 0.20-1.00 ALT 35 U/L (Normal) Range: 16-61 ALK P 63 U/L (Normal) Range: 45-117 AST 21 U/L (Normal) Range: 15-37 CA 8.7 mg/dL (Normal) Range: 8.5-10.1 A/G 1.2 {RATIO} (Normal) Range: 0.9-2.4 GLOB 3.2 g/dL (Normal) Range: 2.2-4.2 ALB 3.7 g/dL (Normal) Range: 3.2-5.0 T PROT 6.9 g/dL (Normal) Range: 6.4-8.2 BUN/CRE 14.9 {RATIO} (Normal) Range: 10-20 EST GFR - AA 97 mL/min (Normal) Comments: GFR Calc EST GFR 80 mL/min (Normal) Comments: Non- GFR Calc CREAT,SERUM 1.01 mg/dL (Normal) Range: 0.70-1.30 Comments: The validity of the calculated GFR AND GFRAA in patients over70 years has not been determined. Clinical correlation isessential. BUN 15 mg/dL (Normal) Range: 7-18 GLU 86 mg/dL (Normal) Range: 74-106 Comments: Please note revised GLUCOSE reference range malvmyiae67/02/2018. 78-Obi-94380:24 CBC with auto diff Comments: PATIENT NOT FASTINGPERFORMED BY: [facility] [id number] [facility] [id number] Information: NURSE DRAW ([id number]) Immature Grans (Abs) 0.0 {x10E3/uL} (Normal) Range: 0.0-0.1 Immature Granulocytes 0 % (Normal) Baso (Absolute) 0.1 {x10E3/uL} (Normal) Range: 0.0-0.2 Eos (Absolute) 0.2 {x10E3/uL} (Normal) Range: 0.0-0.4 Monocytes(Absolute) 1.0 {x10E3/uL} (Abnormal) Range: 0.1-0.9 Lymphs (Absolute) 1.7 {x10E3/uL} (Normal) Range: 0.7-3.1 Neutrophils (Absolute) 3.4 {x10E3/uL} (Normal) Range: 1.4-7.0 Basos 1 % (Normal) Eos 3 % (Normal) Monocytes 15 % (Normal) Lymphs 27 % (Normal) Neutrophils 54 % (Normal) Platelets 286 {x10E3/uL} (Normal) Range: 150-379 RDW 13.4 % (Normal) Range: 12.3-15.4 MCHC 34.7 g/dL (Normal) Range: 31.5-35.7 MCH 32.9 pg (Normal) Range: 26.6-33.0 MCV 95 fL (Normal) Range: 79-97 Hematocrit 47.8 % (Normal) Range: 37.5-51.0 Hemoglobin 16.6 g/dL (Normal) Range: 13.0-17.7 RBC 5.04 {x10E6/uL} (Normal) Range: 4.14-5.80 WBC 6.4 {x10E3/uL} (Normal) Range: 3.4-10.8 34-Wfk-62778:24 METABOLIC PANEL, COMPREHENSIVE Comments: PATIENT NOT FASTINGPERFORMED BY: [facility] [id number] [facility] [id number] ([id number]) ALT (SGPT) 27 [iU]/L (Normal) Range: 0-44 AST (SGOT) 20 [iU]/L (Normal) Range: 0-40 Alkaline Phosphatase 59 [iU]/L (Normal) Range: 39-117 Bilirubin, Total 0.7 mg/dL (Normal) Range: 0.0-1.2 A/G Ratio 2.1 (Normal) Range: 1.2-2.2 Globulin, Total 2.0 g/dL (Normal) Range: 1.5-4.5 Albumin 4.2 g/dL (Normal) Range: 3.5-5.5 Protein, Total 6.2 g/dL (Normal) Range: 6.0-8.5 Calcium 9.5 mg/dL (Normal) Range: 8.7-10.2 Carbon Dioxide, Total 23 mmol/L (Normal) Range: 20-29 Chloride 106 mmol/L (Normal) Range: 96-106 Potassium 4.5 mmol/L (Normal) Range: 3.5-5.2 Sodium 144 mmol/L (Normal) Range: 134-144 BUN/Creatinine Ratio 13 (Normal) Range: 9-20 eGFR If Africn Am 89 mL/min/1.73 (Normal) eGFR If NonAfricn Am 77 mL/min/1.73 (Normal) Creatinine 1.05 mg/dL (Normal) Range: 0.76-1.27 BUN 14 mg/dL (Normal) Range: 6-24 Glucose 99 mg/dL (Normal) Range: 65-99 :17 CBC W/Diff, Automated Comments: [facility] [address] [place], [place], [id number] Absolute Lymph 1.70 {X10_3/ul} (Normal) Range: 0.83-4.51 Absolute Neut 3.1 {X10_3/uL} (Normal) Range: 2.0-7.7 IM GRAN % 0.300 % (Normal) Range: 0.0-0.9 Comments: IG% - Immature Granulocytes (promyelocytes, myelocytes andmetamyelocytes) > 1% indicates that a LEFT SHIFT is Present. BASO% 1.4 % (Abnormal) Range: 0-1 EO% 3.5 % (Normal) Range: 0-5 MONO% 11.6 % (Abnormal) Range: 0-10 LY% 29.5 % (Normal) Range: 19-41 NEUT% 53.7 % (Normal) Range: 47-70 MPV 9.6 fL (Normal) Range: 6.2-12.0 PLT 268 K/mm3 (Normal) Range: 150-450 RDW SD 43.6 fL (Normal) Range: 35.1-43.9 RDW CV 13.1 % (Normal) Range: 11.6-14.6 MCHC 35.6 {g/gl} (Normal) Range: 32-36 MCH 33.2 pg (Abnormal) Range: 27.0-32.0 MCV 93.2 fL (Normal) Range: 80-94 HCT 45.5 % (Normal) Range: 40-54 HGB 16.2 g/dL (Normal) Range: 13.0-16.5 RBC 4.88 {M/mm3} (Normal) Range: 4.6-6.2 WBC 5.8 K/mm3 (Normal) Range: 4.4-11.0 30-Aeu-73863:17 Comprehensive Metabolic Profil Comments: [facility] [address] [place], [address] GAP 5 (Normal) Range: 5-15 CO2 29.0 mmol/L (Normal) Range: 21.0-32.0 CL 108 mmol/L (Abnormal) Range: 98-107 K 4.2 mmol/L (Normal) Range: 3.5-5.1 NA 142 mmol/L (Normal) Range: 136-145 T BILI 0.80 mg/dL (Normal) Range: 0.20-1.00 ALT 34 U/L (Normal) Range: 16-61 ALK P 53 U/L (Normal) Range: 45-117 AST 19 U/L (Normal) Range: 15-37 CA 8.4 mg/dL (Abnormal) Range: 8.5-10.1 A/G 1.2 {RATIO} (Normal) Range: 0.9-2.4 GLOB 3.0 g/dL (Normal) Range: 2.2-4.2 ALB 3.5 g/dL (Normal) Range: 3.2-5.0 T PROT 6.5 g/dL (Normal) Range: 6.4-8.2 BUN/CRE 19.0 {RATIO} (Normal) Range: 10-20 EST GFR - AA 98 mL/min (Normal) Comments: GFR Calc EST GFR 81 mL/min (Normal) Comments: Non- GFR Calc CREAT,SERUM 1.00 mg/dL (Normal) Range: 0.70-1.30 Comments: The validity of the calculated GFR AND GFRAA in patients over70 years has not been determined. Clinical correlation isessential. BUN 19 mg/dL (Abnormal) Range: 7-18 GLU 125 mg/dL (Abnormal) Range: 74-106 Comments: Fasting Glucose result from 100 to 125 mg/dLsuggests IMPAIRED HOMEOSTASIS per A.D.A. criteria.Please note revised GLUCOSE reference range ngpdksuwl45/02/2018. 17-Dec-20176:22 CBC W/Diff, Automated Comments: [facility] [address] [place], [address] ; review at 12/24 Absolute Lymph 1.33 {X10_3/ul} (Normal) Range: 0.83-4.51 Absolute Neut 2.8 {X10_3/uL} (Normal) Range: 2.0-7.7 IM GRAN % 0.400 % (Normal) Range: 0.0-0.9 Comments: IG% - Immature Granulocytes (promyelocytes, myelocytes andmetamyelocytes) > 1% indicates that a LEFT SHIFT is Present. BASO% 1.1 % (Abnormal) Range: 0-1 EO% 3.9 % (Normal) Range: 0-5 MONO% 19.9 % (Abnormal) Range: 0-10 LY% 23.9 % (Normal) Range: 19-41 NEUT% 50.8 % (Normal) Range: 47-70 MPV 9.5 fL (Normal) Range: 6.2-12.0 PLT 238 K/mm3 (Normal) Range: 150-450 RDW SD 45.7 fL (Abnormal) Range: 35.1-43.9 RDW CV 13.5 % (Normal) Range: 11.6-14.6 MCHC 34.3 {g/gl} (Normal) Range: 32-36 MCH 32.1 pg (Abnormal) Range: 27.0-32.0 MCV 93.5 fL (Normal) Range: 80-94 HCT 44.6 % (Normal) Range: 40-54 HGB 15.3 g/dL (Normal) Range: 13.0-16.5 RBC 4.77 {M/mm3} (Normal) Range: 4.6-6.2 WBC 5.6 K/mm3 (Normal) Range: 4.4-11.0 17-Dec-20176:22 Comprehensive Metabolic Profil Comments: [facility] [address] [place], [place], [address] GAP 7 (Normal) Range: 5-15 CO2 29.0 mmol/L (Normal) Range: 21.0-32.0 CL 107 mmol/L (Normal) Range: 98-107 K 3.6 mmol/L (Normal) Range: 3.5-5.1 NA 143 mmol/L (Normal) Range: 136-145 T BILI 0.70 mg/dL (Normal) Range: 0.20-1.00 ALT 39 U/L (Normal) Range: 16-61 ALK P 57 U/L (Normal) Range: 45-117 AST 24 U/L (Normal) Range: 15-37 CA 8.5 mg/dL (Normal) Range: 8.5-10.1 A/G 1.1 {RATIO} (Normal) Range: 0.9-2.4 GLOB 3.2 g/dL (Normal) Range: 2.2-4.2 ALB 3.5 g/dL (Normal) Range: 3.2-5.0 T PROT 6.7 g/dL (Normal) Range: 6.4-8.2 BUN/CRE 13.5 {RATIO} (Normal) Range: 10-20 EST GFR - AA 113 mL/min (Normal) Comments: GFR Calc EST GFR 94 mL/min (Normal) Comments: Non- GFR Calc CREAT,SERUM 0.89 mg/dL (Normal) Range: 0.70-1.30 Comments: The validity of the calculated GFR AND GFRAA in patients over70 years has not been determined. Clinical correlation isessential. BUN 12 mg/dL (Normal) Range: 7-18 GLU 86 mg/dL (Normal) Range: 74-106 Comments: Please note revised GLUCOSE reference range kxfnyvtwm24/02/2018. 17-Dec-20176:22 Lipid Profile Comments: [facility] [address] [place], [id number] VLDL 23 mg/dL (Normal) Range: 5-40 LDL 64 mg/dL (Normal) Range: 0-130 HDL 27 mg/dL (Abnormal) Comments: The drugs N-Acetylcysteine and Metamizole may falselydepress this assay. Reference Range HDL <40 mg/dL Low HDL Cholesterol HDL >or= 60 mg/dL High HDL Cholesterol TRIG 115 mg/dL (Normal) Comments: The drugs N-Acetylcysteine and Metamizole may falselydepress this assay.Serum Triglycerides Reference Interval Normal <150 mg/dL Borderline high 150 - 199 mg/dL High 200 - 499 mg/dL Very High > or = 500 mg/dL CHOL 114 mg/dL (Normal) Comments: <200 mg/dL Desirable 200-240 mg/dL Borderline >240 mg/dL High Risk 17-Dec-20176:22 PSA,Total - Annual Screen Comments: [facility] [address] [place], [place], [id number] PSA,TOT SCREEN 0.85 ng/mL (Normal) Range: 0.00-4.00 Comments: This test was performed using the TPSA assay method for the[facility] chemistry system. Values obtained with differentassay methods cannot be used interchangably.When changing PSA assays in the course of monitoring apatient, additional sequential testing should be carriedout to confirm baseline values. 17-Dec-20176:22 Thyroid Stim Hormone (TSH) Comments: [facility] [address] [place], [id number] TSH 1.13 {uIU/mL} (Normal) Range: 0.358-3.74 55-Ede-729356:56 CBC W/Diff, Automated Comments: [facility] [address] [place], [address] Absolute Lymph 1.48 {X10_3/ul} (Normal) Range: 0.83-4.51 Absolute Neut 3.8 {X10_3/uL} (Normal) Range: 2.0-7.7 IM GRAN % 0.300 % (Normal) Range: 0.0-0.9 Comments: IG% - Immature Granulocytes (promyelocytes, myelocytes andmetamyelocytes) > 1% indicates that a LEFT SHIFT is Present. BASO% 1.4 % (Abnormal) Range: 0-1 EO% 2.7 % (Normal) Range: 0-5 MONO% 11.7 % (Abnormal) Range: 0-10 LY% 23.5 % (Normal) Range: 19-41 NEUT% 60.4 % (Normal) Range: 47-70 MPV 10.0 fL (Normal) Range: 6.2-12.0 PLT 286 K/mm3 (Normal) Range: 150-450 RDW SD 44.3 fL (Abnormal) Range: 35.1-43.9 RDW CV 13.5 % (Normal) Range: 11.6-14.6 MCHC 35.7 {g/gl} (Normal) Range: 32-36 MCH 33.1 pg (Abnormal) Range: 27.0-32.0 MCV 92.7 fL (Normal) Range: 80-94 HCT 46.0 % (Normal) Range: 40-54 HGB 16.4 g/dL (Normal) Range: 13.0-16.5 RBC 4.96 {M/mm3} (Normal) Range: 4.6-6.2 WBC 6.3 K/mm3 (Normal) Range: 4.4-11.0 32-Nbn-066772:56 Comprehensive Metabolic Profil Comments: [facility] [address] [place], [address] GAP 6 (Normal) Range: 5-15 CO2 29.0 mmol/L (Normal) Range: 21.0-32.0 CL 107 mmol/L (Normal) Range: 98-107 K 4.0 mmol/L (Normal) Range: 3.5-5.1 NA 142 mmol/L (Normal) Range: 136-145 T BILI 0.70 mg/dL (Normal) Range: 0.20-1.00 ALT 42 U/L (Normal) Range: 16-61 Comments: Please note revised ALT reference range joivdjwug14/28/2018. ALK P 59 U/L (Normal) Range: 45-117 AST 21 U/L (Normal) Range: 15-37 CA 8.4 mg/dL (Abnormal) Range: 8.5-10.1 A/G 1.3 {RATIO} (Normal) Range: 0.9-2.4 GLOB 3.0 g/dL (Normal) Range: 2.2-4.2 ALB 3.9 g/dL (Normal) Range: 3.2-5.0 T PROT 6.9 g/dL (Normal) Range: 6.4-8.2 BUN/CRE 12.3 {RATIO} (Normal) Range: 10-20 EST GFR - AA 85 mL/min (Normal) Comments: GFR Calc EST GFR 70 mL/min (Normal) Comments: Non- GFR Calc CREAT,SERUM 1.14 mg/dL (Normal) Range: 0.70-1.30 Comments: The validity of the calculated GFR AND GFRAA in patients over70 years has not been determined. Clinical correlation isessential. BUN 14 mg/dL (Normal) Range: 7-18 GLU 86 mg/dL (Normal) Range: 74-106 Comments: Please note revised GLUCOSE reference range dbufdpcwc78/02/2018. 36-Tyy-90929:18 CBC W/Diff, Automated Comments: [facility] [address] [place], [address] ; review 09/03 Absolute Lymph 1.62 {X10_3/ul} (Normal) Range: 0.83-4.51 Absolute Neut 3.2 {X10_3/uL} (Normal) Range: 2.0-7.7 IM GRAN % 0.500 % (Normal) Range: 0.0-0.9 Comments: IG% - Immature Granulocytes (promyelocytes, myelocytes andmetamyelocytes) > 1% indicates that a LEFT SHIFT is Present. BASO% 1.7 % (Abnormal) Range: 0-1 EO% 3.2 % (Normal) Range: 0-5 MONO% 14.7 % (Abnormal) Range: 0-10 LY% 27.1 % (Normal) Range: 19-41 NEUT% 52.8 % (Normal) Range: 47-70 MPV 9.5 fL (Normal) Range: 6.2-12.0 PLT 285 K/mm3 (Normal) Range: 150-450 RDW SD 45.9 fL (Abnormal) Range: 35.1-43.9 RDW CV 13.4 % (Normal) Range: 11.6-14.6 MCHC 34.2 {g/gl} (Normal) Range: 32-36 MCH 32.6 pg (Abnormal) Range: 27.0-32.0 MCV 95.2 fL (Abnormal) Range: 80-94 HCT 47.6 % (Normal) Range: 40-54 HGB 16.3 g/dL (Normal) Range: 13.0-16.5 RBC 5.00 {M/mm3} (Normal) Range: 4.6-6.2 WBC 6.0 K/mm3 (Normal) Range: 4.4-11.0 32-Xnm-76443:18 Comprehensive Metabolic Profil Comments: [facility] [address] [place], [place], [address] GAP 6 (Normal) Range: 5-15 CO2 31.0 mmol/L (Normal) Range: 21.0-32.0 CL 107 mmol/L (Normal) Range: 98-107 K 4.1 mmol/L (Normal) Range: 3.5-5.1 NA 144 mmol/L (Normal) Range: 136-145 T BILI 0.70 mg/dL (Normal) Range: 0.20-1.00 ALT 35 U/L (Normal) Range: 12-78 ALK P 57 U/L (Normal) Range: 45-117 AST 19 U/L (Normal) Range: 15-37 CA 8.4 mg/dL (Abnormal) Range: 8.5-10.1 A/G 1.3 {RATIO} (Normal) Range: 0.9-2.4 GLOB 2.9 g/dL (Normal) Range: 2.2-4.2 ALB 3.7 g/dL (Normal) Range: 3.4-5.0 Comments: Please note revised Albumin AND Globulin reference rangeeffective 2017. T PROT 6.6 g/dL (Normal) Range: 6.4-8.2 BUN/CRE 9.1 {RATIO} (Abnormal) Range: 10-20 EST GFR - AA 100 mL/min (Normal) Comments: GFR Calc EST GFR 83 mL/min (Normal) Comments: Non- GFR Calc CREAT,SERUM 0.98 mg/dL (Normal) Range: 0.70-1.30 Comments: The validity of the calculated GFR AND GFRAA in patients over70 years has not been determined. Clinical correlation isessential. BUN 9 mg/dL (Normal) Range: 7-18 GLU 81 mg/dL (Normal) Range: 70-110 09-Kgg-50455:18 Lipid Profile Comments: [facility] [address] [place], [place], [id number] VLDL 24 mg/dL (Normal) Range: 5-40 LDL 88 mg/dL (Normal) Range: 0-130 HDL 34 mg/dL (Abnormal) Comments: The drugs N-Acetylcysteine and Metamizole may falselydepress this assay. Reference Range HDL <40 mg/dL Low HDL Cholesterol HDL >or= 60 mg/dL High HDL Cholesterol TRIG 122 mg/dL (Normal) Comments: The drugs N-Acetylcysteine and Metamizole may falselydepress this assay.Serum Triglycerides Reference Interval Normal <150 mg/dL Borderline high 150 - 199 mg/dL High 200 - 499 mg/dL Very High > or = 500 mg/dL CHOL 146 mg/dL (Normal) Comments: <200 mg/dL Desirable 200-240 mg/dL Borderline >240 mg/dL High Risk 27-Vtb-59460:18 Thyroid Stim Hormone (TSH) Comments: [facility] [address] [place], [address] TSH 0.81 {uIU/mL} (Normal) Range: 0.358-3.74 36-Kde-969730:10 CBC W/Diff, Automated Comments: [facility] [address] [place], [address] Absolute Lymph 1.62 {X10_3/ul} (Normal) Range: 0.83-4.51 Absolute Neut 4.3 {X10_3/uL} (Normal) Range: 2.0-7.7 IM GRAN % 0.300 % (Normal) Range: 0.0-0.9 Comments: IG% - Immature Granulocytes (promyelocytes, myelocytes andmetamyelocytes) > 1% indicates that a LEFT SHIFT is Present. BASO% 1.3 % (Abnormal) Range: 0-1 EO% 3.1 % (Normal) Range: 0-5 MONO% 10.8 % (Abnormal) Range: 0-10 LY% 23.1 % (Normal) Range: 19-41 NEUT% 61.4 % (Normal) Range: 47-70 MPV 10.0 fL (Normal) Range: 6.2-12.0 PLT 310 K/mm3 (Normal) Range: 150-450 RDW SD 43.6 fL (Normal) Range: 35.1-43.9 RDW CV 13.2 % (Normal) Range: 11.6-14.6 MCHC 35.0 {g/gl} (Normal) Range: 32-36 MCH 32.7 pg (Abnormal) Range: 27.0-32.0 MCV 93.4 fL (Normal) Range: 80-94 HCT 46.6 % (Normal) Range: 40-54 HGB 16.3 g/dL (Normal) Range: 13.0-16.5 RBC 4.99 {M/mm3} (Normal) Range: 4.6-6.2 WBC 7.0 K/mm3 (Normal) Range: 4.4-11.0 48-Jfj-576430:10 Comprehensive Metabolic Profil Comments: [facility] [address] [place], [address] GAP 7 (Normal) Range: 5-15 CO2 30.0 mmol/L (Normal) Range: 21.0-32.0 CL 103 mmol/L (Normal) Range: 98-107 K 4.2 mmol/L (Normal) Range: 3.5-5.1 NA 140 mmol/L (Normal) Range: 136-145 T BILI 0.90 mg/dL (Normal) Range: 0.20-1.00 ALT 44 U/L (Normal) Range: 12-78 ALK P 60 U/L (Normal) Range: 45-117 AST 21 U/L (Normal) Range: 15-37 CA 8.7 mg/dL (Normal) Range: 8.5-10.1 A/G 1.2 {RATIO} (Normal) Range: 0.9-2.4 GLOB 3.3 g/dL (Normal) Range: 2.2-4.2 ALB 3.8 g/dL (Normal) Range: 3.4-5.0 Comments: Please note revised Albumin AND Globulin reference rangeeffective 2017. T PROT 7.1 g/dL (Normal) Range: 6.4-8.2 BUN/CRE 13.1 {RATIO} (Normal) Range: 10-20 EST GFR - AA 99 mL/min (Normal) Comments: GFR Calc EST GFR 82 mL/min (Normal) Comments: Non- GFR Calc CREAT,SERUM 1.00 mg/dL (Normal) Range: 0.70-1.30 Comments: The validity of the calculated GFR AND GFRAA in patients over70 years has not been determined. Clinical correlation isessential. BUN 13 mg/dL (Normal) Range: 7-18 GLU 90 mg/dL (Normal) Range: 70-110 01-Jsf-02503:09 CBC W/Diff, Automated Comments: [facility] [address] [place], [place], [address] ; will review at upcoming appt Absolute Lymph 1.58 {X10_3/ul} (Normal) Range: 0.83-4.51 Absolute Neut 3.2 {X10_3/uL} (Normal) Range: 2.0-7.7 IM GRAN % 0.700 % (Normal) Range: 0.0-0.9 Comments: IG% - Immature Granulocytes (promyelocytes, myelocytes andmetamyelocytes) > 1% indicates that a LEFT SHIFT is Present. BASO% 1.0 % (Normal) Range: 0-1 EO% 3.7 % (Normal) Range: 0-5 MONO% 13.8 % (Abnormal) Range: 0-10 LY% 26.6 % (Normal) Range: 19-41 NEUT% 54.2 % (Normal) Range: 47-70 MPV 9.4 fL (Normal) Range: 6.2-12.0 PLT 279 K/mm3 (Normal) Range: 150-450 RDW SD 45.9 fL (Abnormal) Range: 35.1-43.9 RDW CV 13.6 % (Normal) Range: 11.6-14.6 MCHC 34.2 {g/gl} (Normal) Range: 32-36 MCH 32.7 pg (Abnormal) Range: 27.0-32.0 MCV 95.7 fL (Abnormal) Range: 80-94 HCT 46.5 % (Normal) Range: 40-54 HGB 15.9 g/dL (Normal) Range: 13.0-16.5 RBC 4.86 {M/mm3} (Normal) Range: 4.6-6.2 WBC 6.0 K/mm3 (Normal) Range: 4.4-11.0 67-Phb-46061:09 Comprehensive Metabolic Profil Comments: [facility] [address] [place], [place], [id number] GAP 7 (Normal) Range: 5-15 CO2 32.0 mmol/L (Normal) Range: 21.0-32.0 CL 103 mmol/L (Normal) Range: 98-107 K 3.8 mmol/L (Normal) Range: 3.5-5.1 NA 142 mmol/L (Normal) Range: 136-145 T BILI 0.80 mg/dL (Normal) Range: 0.20-1.00 ALT 33 U/L (Normal) Range: 12-78 ALK P 57 U/L (Normal) Range: 45-117 AST 17 U/L (Normal) Range: 15-37 CA 8.7 mg/dL (Normal) Range: 8.5-10.1 A/G 1.2 {RATIO} (Normal) Range: 0.9-2.4 GLOB 3.0 g/dL (Normal) Range: 2.3-3.5 ALB 3.6 g/dL (Normal) Range: 3.4-5.0 T PROT 6.6 g/dL (Normal) Range: 6.4-8.2 BUN/CRE 12.9 {RATIO} (Normal) Range: 10-20 EST GFR - AA 98 mL/min (Normal) Comments: GFR Calc EST GFR 81 mL/min (Normal) Comments: Non- GFR Calc CREAT,SERUM 1.01 mg/dL (Normal) Range: 0.70-1.30 Comments: The validity of the calculated GFR AND GFRAA in patients over70 years has not been determined. Clinical correlation isessential. BUN 13 mg/dL (Normal) Range: 7-18 GLU 89 mg/dL (Normal) Range: 70-110 [id number] Hepatitis C Antibodies Comments: [facility] (refer to report for specific site)refer to report for address and phone number; will review on 05/28 HEP C AB <0.1 {s/co_ratio} (Normal) Range: 0.0-0.9 Comments: Negative: < 0.8 Indeterminate: 0.8 - 0.9 Positive: > 0.9 The CDC recommends that a positive HCV antibody result be followed up with a HCV Nucleic Acid Amplification test ([id number]).Performed at: [address] [id number] Director: Jose Francisco Coates PhD, Phone: [phone] [id number] Lipid Profile Comments: [facility] [id number] [place], [address] VLDL 20 mg/dL (Normal) Range: 5-40 LDL 89 mg/dL (Normal) Range: 0-130 HDL 35 mg/dL (Abnormal) Comments: The drugs N-Acetylcysteine and Metamizole may falselydepress this assay. Reference Range HDL <40 mg/dL Low HDL Cholesterol HDL >or= 60 mg/dL High HDL Cholesterol TRIG 98 mg/dL (Normal) Comments: The drugs N-Acetylcysteine and Metamizole may falselydepress this assay.Serum Triglycerides Reference Interval Normal <150 mg/dL Borderline high 150 - 199 mg/dL High 200 - 499 mg/dL Very High > or = 500 mg/dL CHOL 144 mg/dL (Normal) Comments: <200 mg/dL Desirable 200-240 mg/dL Borderline >240 mg/dL High Risk [id number] Thyroid Stim Hormone (TSH) Comments: [facility] [id number] [place], [address] TSH 0.88 {uIU/mL} (Normal) Range: 0.358-3.74 [id number] CBC W/Diff, Automated Comments: [facility] [id number] [place], [address] Absolute Lymph 1.50 {X10_3/ul} (Normal) Range: 0.83-4.51 Absolute Neut 5.2 {X10_3/uL} (Normal) Range: 2.0-7.7 IM GRAN % 0.300 % (Normal) Range: 0.0-0.9 Comments: IG% - Immature Granulocytes (promyelocytes, myelocytes andmetamyelocytes) > 1% indicates that a LEFT SHIFT is Present. BASO% 1.0 % (Normal) Range: 0-1 EO% 2.3 % (Normal) Range: 0-5 MONO% 9.4 % (Normal) Range: 0-10 LY% 19.4 % (Normal) Range: 19-41 NEUT% 67.6 % (Normal) Range: 47-70 MPV 9.7 fL (Normal) Range: 6.2-12.0 PLT 291 K/mm3 (Normal) Range: 150-450 RDW SD 45.2 fL (Abnormal) Range: 35.1-43.9 RDW CV 13.1 % (Normal) Range: 11.6-14.6 MCHC 34.1 {g/gl} (Normal) Range: 32-36 MCH 32.6 pg (Abnormal) Range: 27.0-32.0 MCV 95.6 fL (Abnormal) Range: 80-94 HCT 45.8 % (Normal) Range: 40-54 HGB 15.6 g/dL (Normal) Range: 13.0-16.5 RBC 4.79 {M/mm3} (Normal) Range: 4.6-6.2 WBC 7.8 K/mm3 (Normal) Range: 4.4-11.0 [id number] Comprehensive Metabolic Profil Comments: [facility] [id number] [place], [place], [id number] GAP 7 (Normal) Range: 5-15 CO2 28.0 mmol/L (Normal) Range: 21.0-32.0 CL 105 mmol/L (Normal) Range: 98-107 K 4.1 mmol/L (Normal) Range: 3.5-5.1 NA 140 mmol/L (Normal) Range: 136-145 T BILI 0.60 mg/dL (Normal) Range: 0.20-1.00 ALT 37 U/L (Normal) Range: 12-78 ALK P 57 U/L (Normal) Range: 45-117 AST 21 U/L (Normal) Range: 15-37 CA 8.5 mg/dL (Normal) Range: 8.5-10.1 A/G 1.2 {RATIO} (Normal) Range: 0.9-2.4 GLOB 3.0 g/dL (Normal) Range: 2.3-3.5 ALB 3.6 g/dL (Normal) Range: 3.4-5.0 T PROT 6.6 g/dL (Normal) Range: 6.4-8.2 BUN/CRE 16.5 {RATIO} (Normal) Range: 10-20 EST GFR - AA 95 mL/min (Normal) Comments: GFR Calc EST GFR 79 mL/min (Normal) Comments: Non- GFR Calc CREAT,SERUM 1.03 mg/dL (Normal) Range: 0.70-1.30 Comments: The validity of the calculated GFR AND GFRAA in patients over70 years has not been determined. Clinical correlation isessential. BUN 17 mg/dL (Normal) Range: 7-18 GLU 90 mg/dL (Normal) Range: 70-110 16-Mar-20178:44 CBC with auto diff Comments: PATIENT NOT FASTINGPERFORMED BY: [facility]ny[facility] [id number] Information: NURSE DRAW ([id number]) Immature Grans (Abs) 0.0 {x10E3/uL} (Normal) Range: 0.0-0.1 Immature Granulocytes 0 % (Normal) Baso (Absolute) 0.1 {x10E3/uL} (Normal) Range: 0.0-0.2 Eos (Absolute) 0.2 {x10E3/uL} (Normal) Range: 0.0-0.4 Monocytes(Absolute) 0.6 {x10E3/uL} (Normal) Range: 0.1-0.9 Lymphs (Absolute) 1.3 {x10E3/uL} (Normal) Range: 0.7-3.1 Neutrophils (Absolute) 3.2 {x10E3/uL} (Normal) Range: 1.4-7.0 Basos 1 % (Normal) Eos 3 % (Normal) Monocytes 12 % (Normal) Lymphs 24 % (Normal) Neutrophils 60 % (Normal) Platelets 253 {x10E3/uL} (Normal) Range: 150-379 RDW 14.1 % (Normal) Range: 12.3-15.4 MCHC 34.4 g/dL (Normal) Range: 31.5-35.7 MCH 32.9 pg (Normal) Range: 26.6-33.0 MCV 96 fL (Normal) Range: 79-97 Hematocrit 46.5 % (Normal) Range: 37.5-51.0 Hemoglobin 16.0 g/dL (Normal) Range: 12.6-17.7 RBC 4.86 {x10E6/uL} (Normal) Range: 4.14-5.80 WBC 5.4 {x10E3/uL} (Normal) Range: 3.4-10.8 16-Mar-20178:44 METABOLIC PANEL, COMPREHENSIVE Comments: PATIENT NOT FASTINGPERFORMED BY: [facility] Sgwzea9497 [facility] [id number] ([id number]) ALT (SGPT) 52 [iU]/L (Abnormal) Range: 0-44 AST (SGOT) 32 [iU]/L (Normal) Range: 0-40 Alkaline Phosphatase, S 56 [iU]/L (Normal) Range: 39-117 Bilirubin, Total 0.8 mg/dL (Normal) Range: 0.0-1.2 A/G Ratio 2.3 (Abnormal) Range: 1.2-2.2 Globulin, Total 1.8 g/dL (Normal) Range: 1.5-4.5 Albumin, Serum 4.1 g/dL (Normal) Range: 3.5-5.5 Protein, Total, Serum 5.9 g/dL (Abnormal) Range: 6.0-8.5 Calcium, Serum 9.2 mg/dL (Normal) Range: 8.7-10.2 Carbon Dioxide, Total 25 mmol/L (Normal) Range: 18-29 Chloride, Serum 100 mmol/L (Normal) Range: 96-106 Potassium, Serum 4.7 mmol/L (Normal) Range: 3.5-5.2 Sodium, Serum 143 mmol/L (Normal) Range: 134-144 BUN/Creatinine Ratio 13 (Normal) Range: 9-20 eGFR If Africn Am 94 mL/min/1.73 (Normal) eGFR If NonAfricn Am 82 mL/min/1.73 (Normal) Creatinine, Serum 1.01 mg/dL (Normal) Range: 0.76-1.27 BUN 13 mg/dL (Normal) Range: 6-24 Glucose, Serum 105 mg/dL (Abnormal) Range: 65-99 15-Gvh-[id number]:11 CBC W/Diff, Automated Comments: DR VALLE ORDERED CMP CBCD ONLYDR VALLE ORDERED CMP CBCD [facility] Nmpjboktjd[address] [place], [place], [id number] Absolute Lymph 1.15 {X10_3/ul} (Normal) Range: 0.83-4.51 Absolute Neut 5.2 {X10_3/uL} (Normal) Range: 2.0-7.7 IM GRAN % 0.100 % (Normal) Range: 0.0-0.9 Comments: IG% - Immature Granulocytes (promyelocytes, myelocytes andmetamyelocytes) > 1% indicates that a LEFT SHIFT is Present. BASO% 1.0 % (Normal) Range: 0-1 EO% 2.5 % (Normal) Range: 0-5 MONO% 7.3 % (Normal) Range: 0-10 LY% 16.2 % (Abnormal) Range: 19-41 NEUT% 72.9 % (Abnormal) Range: 47-70 MPV 9.4 fL (Normal) Range: 6.2-12.0 PLT 279 K/mm3 (Normal) Range: 150-450 RDW SD 43.6 fL (Normal) Range: 35.1-43.9 RDW CV 13.2 % (Normal) Range: 11.6-14.6 MCHC 35.4 {g/gl} (Normal) Range: 32-36 MCH 33.3 pg (Abnormal) Range: 27.0-32.0 MCV 93.9 fL (Normal) Range: 80-94 HCT 44.6 % (Normal) Range: 40-54 HGB 15.8 g/dL (Normal) Range: 13.0-16.5 RBC 4.75 {M/mm3} (Normal) Range: 4.6-6.2 WBC 7.1 K/mm3 (Normal) Range: 4.4-11.0 34-Dgv-[id number]:11 Comprehensive Metabolic Profil Comments: DR VALLE ORDERED CMP CBCD [facility] [address] [place], [address] GAP 6 (Normal) Range: 5-15 CO2 30.0 mmol/L (Normal) Range: 21.0-32.0 CL 105 mmol/L (Normal) Range: 98-107 K 4.1 mmol/L (Normal) Range: 3.5-5.1 Comments: Slight Hemolysis, Result may be falsely increased. NA 141 mmol/L (Normal) Range: 136-145 T BILI 1.10 mg/dL (Abnormal) Range: 0.20-1.00 ALT 39 U/L (Normal) Range: 12-78 ALK P 53 U/L (Normal) Range: 45-117 AST 31 U/L (Normal) Range: 15-37 Comments: Slight Hemolysis, Result may be falsely increased. CA 8.9 mg/dL (Normal) Range: 8.5-10.1 A/G 1.3 {RATIO} (Normal) Range: 0.9-2.4 GLOB 2.9 g/dL (Normal) Range: 2.3-3.5 ALB 3.7 g/dL (Normal) Range: 3.4-5.0 T PROT 6.6 g/dL (Normal) Range: 6.4-8.2 BUN/CRE 14.0 {RATIO} (Normal) Range: 10-20 EST GFR - AA 118 mL/min (Normal) Comments: GFR Calc EST GFR 98 mL/min (Normal) Comments: Non- GFR Calc CREAT,SERUM 0.86 mg/dL (Normal) Range: 0.70-1.30 Comments: The validity of the calculated GFR AND GFRAA in patients over70 years has not been determined. Clinical correlation isessential. BUN 12 mg/dL (Normal) Range: 7-18 GLU 101 mg/dL (Normal) Range: 70-110 81-Pdi-[id number]:11 CRP Comments: DR VALLE ORDERED CMP CBCD [facility] [address] [place], [address] C-REACTIVE PROT 4.36 mg/L (Abnormal) Range: 0.0-3.0 Comments: C-Reactive Protein (CRP) provides useful information for thediagnosis, therapy and monitoring of inflammatory processesand associated diseases. For the evaluation of Relative Riskfor Cardiovascular Dise ase, a High Sensitivity CRP (HSCRP)should be ordered. :11 Free T3 Comments: DR VALLE ORDERED [facility] CBCD [facility] [address] [place], [place], [phone](721) FREE T3 2.7 pg/mL (Normal) Range: 2.18-3.98 :11 Lipid Profile Comments: DR VALLE ORDERED [facility] CBCD [facility] [address] [place], [place], [phone](735) VLDL 15 mg/dL (Normal) Range: 5-40 LDL 68 mg/dL (Normal) Range: 0-130 HDL 43 mg/dL (Normal) Comments: The drugs N-Acetylcysteine and Metamizole may falsely deressthis assay. Reference Range HDL <40 mg/dL Low HDL Cholesterol HDL >or= 60 mg/dL High HDL Cholesterol TRIG 75 mg/dL (Normal) Comments: The drugs N-Acetylcysteine and Metamizole may falsely deressthis assay.Serum Triglycerides Reference Interval Normal <150 mg/dL Borderline high 150 - 199 mg/dL High 200 - 499 mg/dL Very High > or = 500 mg/dL CHOL 126 mg/dL (Normal) Comments: <200 mg/dL Desirable 200-240 mg/dL Borderline >240 mg/dL High Risk :11 PSA,Total - Annual Screen Comments: DR VALLE ORDERED [facility] CBCD [facility] [address] [place], [place], [address] PSA,TOT SCREEN 0.89 ng/mL (Normal) Range: 0.00-4.00 Comments: This test was performed using the TPSA assay method for the[facility] chemistry system. Values obtained with differentassay methods cannot be used interchangably.When changing PSA assays in the course of monitoring apatient, additional sequential testing should be carriedout to confirm baseline values. :11 T4 Free Direct Comments: DR VALLE ORDERED [facility] CBCD [facility] [address] [place], [place], [phone] T4 FREE DIRECT 1.08 ng/dL (Normal) Range: 0.76-1.46 45-Rjh-429179:11 Thyroid Stim Hormone (TSH) Comments: DR VALLE ORDERED [facility] Eaixoqygyl1566 [facility] [place], [address] TSH 0.36 {uIU/mL} (Normal) Range: 0.358-3.74 09-Wan-407876:44 CBC W/Diff, Automated Comments: [facility] Cboqvallfd5020 [facility] [place], [address] Absolute Lymph 1.41 {X10_3/ul} (Normal) Range: 0.83-4.51 Absolute Neut 4.3 {X10_3/uL} (Normal) Range: 2.0-7.7 IM GRAN % 0.200 % (Normal) Range: 0.0-0.9 Comments: IG% - Immature Granulocytes (promyelocytes, myelocytes andmetamyelocytes) > 1% indicates that a LEFT SHIFT is Present. BASO% 1.1 % (Abnormal) Range: 0-1 EO% 2.9 % (Normal) Range: 0-5 MONO% 10.3 % (Abnormal) Range: 0-10 LY% 21.3 % (Normal) Range: 19-41 NEUT% 64.2 % (Normal) Range: 47-70 MPV 9.0 fL (Normal) Range: 6.2-12.0 PLT 272 K/mm3 (Normal) Range: 150-450 RDW SD 43.2 fL (Normal) Range: 35.1-43.9 RDW CV 13.1 % (Normal) Range: 11.6-14.6 MCHC 34.4 {g/gl} (Normal) Range: 32-36 MCH 31.3 pg (Normal) Range: 27.0-32.0 MCV 91.0 fL (Normal) Range: 80-94 HCT 45.7 % (Normal) Range: 40-54 HGB 15.7 g/dL (Normal) Range: 13.0-16.5 RBC 5.02 {M/mm3} (Normal) Range: 4.6-6.2 WBC 6.6 K/mm3 (Normal) Range: 4.4-11.0 48-Fwt-661641:44 Comprehensive Metabolic Profil Comments: T3F T4F YOANNA [facility] [address]etke[address] [place], [place], [phone] GAP 6 (Normal) Range: 5-15 CO2 30.0 mmol/L (Normal) Range: 21.0-32.0 CL 102 mmol/L (Normal) Range: 98-107 K 3.9 mmol/L (Normal) Range: 3.5-5.1 NA 138 mmol/L (Normal) Range: 136-145 T BILI 0.80 mg/dL (Normal) Range: 0.20-1.00 ALT 33 U/L (Normal) Range: 12-78 ALK P 51 U/L (Normal) Range: 45-117 AST 20 U/L (Normal) Range: 15-37 CA 8.5 mg/dL (Normal) Range: 8.5-10.1 A/G 1.3 {RATIO} (Normal) Range: 0.9-2.4 GLOB 2.9 g/dL (Normal) Range: 2.3-3.5 ALB 3.8 g/dL (Normal) Range: 3.4-5.0 T PROT 6.7 g/dL (Normal) Range: 6.4-8.2 BUN/CRE 12.3 {RATIO} (Normal) Range: 10-20 EST GFR - AA 101 mL/min (Normal) Comments: GFR Calc EST GFR 84 mL/min (Normal) Comments: Non- GFR Calc CREAT,SERUM 0.98 mg/dL (Normal) Range: 0.70-1.30 Comments: The validity of the calculated GFR AND GFRAA in patients over70 years has not been determined. Clinical correlation isessential. BUN 12 mg/dL (Normal) Range: 7-18 GLU 91 mg/dL (Normal) Range: 70-110 43-Zdi-[id number]:44 Free T3 Comments: T3F T4F YOANNA [facility] [address] [place], [address] FREE T3 2.6 pg/mL (Normal) Range: 2.18-3.98 62-Ynq-865220:44 T4 Free Direct Comments: T3F T4F TSHDR.LEONARD [facility]CD[facility] [address]fj[address] [place], [place], [id number] T4 FREE DIRECT 1.04 ng/dL (Normal) Range: 0.76-1.46 98-Cys-664104:44 Thyroid Stim Hormone (TSH) Comments: T3F T4F TSHDR.TAEROBBY [facility]CD[facility] [address]oorif[address] [place], [place], [address] TSH 0.26 {uIU/mL} (Abnormal) Range: 0.358-3.74 :13 CBC W/Diff, Automated Comments: [facility] Pnekwglrbc4750 [facility] [address] [place], [place], [address] ; apt next week Absolute Lymph 1.59 {X10_3/ul} (Normal) Range: 0.83-4.51 Absolute Neut 4.6 {X10_3/uL} (Normal) Range: 2.0-7.7 IM GRAN % 0.100 % (Normal) Range: 0.0-0.9 Comments: IG% - Immature Granulocytes (promyelocytes, myelocytes andmetamyelocytes) > 1% indicates that a LEFT SHIFT is Present. BASO% 1.3 % (Abnormal) Range: 0-1 EO% 5.1 % (Abnormal) Range: 0-5 MONO% 11.8 % (Abnormal) Range: 0-10 LY% 21.1 % (Normal) Range: 19-41 NEUT% 60.6 % (Normal) Range: 47-70 MPV 9.6 fL (Normal) Range: 6.2-12.0 PLT 280 K/mm3 (Normal) Range: 150-450 RDW SD 42.4 fL (Normal) Range: 35.1-43.9 RDW CV 12.9 % (Normal) Range: 11.6-14.6 MCHC 34.0 {g/gl} (Normal) Range: 32-36 MCH 31.4 pg (Normal) Range: 27.0-32.0 MCV 92.2 fL (Normal) Range: 80-94 HCT 47.6 % (Normal) Range: 40-54 HGB 16.2 g/dL (Normal) Range: 13.0-16.5 RBC 5.16 {M/mm3} (Normal) Range: 4.6-6.2 WBC 7.5 K/mm3 (Normal) Range: 4.4-11.0 :13 Comprehensive Metabolic Profil Comments: [facility] Bdhwabffzc[address] [place], [place], [address] GAP 1 (Abnormal) Range: 5-15 CO2 33.0 mmol/L (Abnormal) Range: 21.0-32.0 CL 107 mmol/L (Normal) Range: 98-107 K 3.8 mmol/L (Normal) Range: 3.5-5.1 NA 141 mmol/L (Normal) Range: 136-145 T BILI 1.00 mg/dL (Normal) Range: 0.20-1.00 ALT 30 U/L (Normal) Range: 12-78 ALK P 58 U/L (Normal) Range: 45-117 AST 17 U/L (Normal) Range: 15-37 CA 8.7 mg/dL (Normal) Range: 8.5-10.1 A/G 1.3 {RATIO} (Normal) Range: 0.9-2.4 GLOB 3.0 g/dL (Normal) Range: 2.3-3.5 ALB 3.8 g/dL (Normal) Range: 3.4-5.0 T PROT 6.8 g/dL (Normal) Range: 6.4-8.2 BUN/CRE 11.0 {RATIO} (Normal) Range: 10-20 EST GFR - AA 90 mL/min (Normal) Comments: GFR Calc EST GFR 74 mL/min (Normal) Comments: Non- GFR Calc CREAT,SERUM 1.09 mg/dL (Normal) Range: 0.70-1.30 Comments: The validity of the calculated GFR AND GFRAA in patients over70 years has not been determined. Clinical correlation isessential. BUN 12 mg/dL (Normal) Range: 7-18 GLU 96 mg/dL (Normal) Range: 70-110 :13 CRP, High Sensitivity Cardiac Comments: [facility] [address]rhph[address] [place], [id number] CRP HIGH SENS 2.19 mg/L (Normal) Comments: Low Relative Risk of CVD <1.0 mg/L Average Relative Risk of CVD 1.0 - 3.0 mg/L High Relative Risk of CVD >3.0 mg/L :13 Lipid Profile Comments: [facility] Q[address]unzezx[address] [place], [id number] VLDL 23 mg/dL (Normal) Range: 5-40 LDL 72 mg/dL (Normal) Range: 0-130 HDL 36 mg/dL (Abnormal) Comments: The drugs N-Acetylcysteine and Metamizole may falsely deressthis assay. Reference Range HDL <40 mg/dL Low HDL Cholesterol HDL >or= 60 mg/dL High HDL Cholesterol TRIG 115 mg/dL (Normal) Comments: The drugs N-Acetylcysteine and Metamizole may falsely deressthis assay.Serum Triglycerides Reference Interval Normal <150 mg/dL Borderline high 150 - 199 mg/dL High 200 - 499 mg/dL Very High > or = 500 mg/dL CHOL 131 mg/dL (Normal) Comments: <200 mg/dL Desirable 200-240 mg/dL Borderline >240 mg/dL High Risk :13 Vitamin D,25 Hydroxy Comments: [facility] [address]gbku[address] [place], [address] Vitamin D 25-OH 31.7 ng/mL (Normal) Comments: Vitamin D 25(OH) Status Range Deficiency <20 ng/mL (50nmol/L) Insuffciency 20 - 30 ng/mL (50 - 75 nmol/L) Sufficiency 30 - 100 ng/mL (75 - 250 nmol/L) Toxicity >100 ng/mL (>250 nmol/L); ADDENDA: normal and has apt next week [id number]-Anp-[id number]:07 Free T3 Comments: [facility] Bffvxxgqfz25[address] [place], [phone] FREE T3 2.4 pg/mL (Normal) Range: 2.18-3.98 66-Vfx-742683:07 T4 Free Direct Comments: [facility] [address]uu[address] [place], [id number] T4 FREE DIRECT 1.16 ng/dL (Normal) Range: 0.76-1.46 74-Ewu-378240:07 Thyroid Stim Hormone (TSH) Comments: [facility] T[address]cfhsmqj[address] [place], [id number] TSH 0.16 {uIU/mL} (Abnormal) Range: 0.358-3.74 :20 Urine Drug Screen neg for everything (Office - Urine Drug (Normal) Screen 11 Panel) ([id number]) :13 CBC W/Diff, Automated Comments: LIPID IS FOR DR. Aparicio [facility] Nfdzjurnsb[address] [place], [place], [address] Absolute Lymph 1.31 {X10_3/ul} (Normal) Range: 0.83-4.51 Absolute Neut 4.2 {X10_3/uL} (Normal) Range: 2.0-7.7 IM GRAN % 0.300 % (Normal) Range: 0.0-0.9 Comments: IG% - Immature Granulocytes (promyelocytes, myelocytes andmetamyelocytes) > 1% indicates that a LEFT SHIFT is Present. BASO% 1.1 % (Abnormal) Range: 0-1 EO% 6.2 % (Abnormal) Range: 0-5 MONO% 13.3 % (Abnormal) Range: 0-10 LY% 18.8 % (Abnormal) Range: 19-41 NEUT% 60.3 % (Normal) Range: 47-70 MPV 9.8 fL (Normal) Range: 6.2-12.0 PLT 234 K/mm3 (Normal) Range: 150-450 RDW SD 43.7 fL (Normal) Range: 35.1-43.9 RDW CV 12.9 % (Normal) Range: 11.6-14.6 MCHC 34.7 {g/gl} (Normal) Range: 32-36 MCH 32.2 pg (Abnormal) Range: 27.0-32.0 MCV 92.8 fL (Normal) Range: 80-94 HCT 45.3 % (Normal) Range: 40-54 HGB 15.7 g/dL (Normal) Range: 13.0-16.5 RBC 4.88 {M/mm3} (Normal) Range: 4.6-6.2 WBC 7.0 K/mm3 (Normal) Range: 4.4-11.0 :13 Comprehensive Metabolic Profil Comments: [facility] Fckjyzdonu0046 [address] [place], [place], [address] GAP 6 (Normal) Range: 5-15 CO2 29.0 mmol/L (Normal) Range: 21.0-32.0 CL 107 mmol/L (Normal) Range: 98-107 K 3.7 mmol/L (Normal) Range: 3.5-5.1 NA 142 mmol/L (Normal) Range: 136-145 T BILI 1.10 mg/dL (Abnormal) Range: 0.20-1.00 ALT 28 U/L (Normal) Range: 12-78 ALK P 66 U/L (Normal) Range: 50-136 AST 16 U/L (Normal) Range: 15-37 CA 8.6 mg/dL (Normal) Range: 8.5-10.1 A/G 1.2 {RATIO} (Normal) Range: 0.9-2.4 GLOB 3.0 g/dL (Normal) Range: 2.3-3.5 ALB 3.7 g/dL (Normal) Range: 3.4-5.0 T PROT 6.7 g/dL (Normal) Range: 6.4-8.2 BUN/CRE 12.9 {RATIO} (Normal) Range: 10-20 EST GFR - AA 108 mL/min (Normal) Comments: GFR Calc EST GFR 89 mL/min (Normal) Comments: Non- GFR Calc CREAT,SERUM 0.93 mg/dL (Normal) Range: 0.70-1.30 Comments: The validity of the calculated GFR AND GFRAA in patients over70 years has not been determined. Clinical correlation isessential. BUN 12 mg/dL (Normal) Range: 7-18 GLU 95 mg/dL (Normal) Range: 70-110 :13 Lipid Profile Comments: [facility] Jrbyphjukg4310 [place], [address] VLDL 21 mg/dL (Normal) Range: 5-40 LDL 84 mg/dL (Normal) Range: 0-130 HDL 36 mg/dL (Abnormal) Comments: The drugs N-Acetylcysteine and Metamizole may falsely deressthis assay. Reference Range HDL <40 mg/dL Low HDL Cholesterol HDL >or= 60 mg/dL High HDL Cholesterol TRIG 106 mg/dL (Normal) Comments: The drugs N-Acetylcysteine and Metamizole may falsely deressthis assay.Serum Triglycerides Reference Interval Normal <150 mg/dL Borderline high 150 - 199 mg/dL High 200 - 499 mg/dL Very High > or = 500 mg/dL CHOL 141 mg/dL (Normal) Comments: <200 mg/dL Desirable 200-240 mg/dL Borderline >240 mg/dL High Risk :59 TSH (00754) Comments: PATIENT NOT FASTINGPERFORMED BY: [employer] [facility] Xwkxna8888 [address] Road[address]ublin [place] [id number] TSH 0.250 {uIU/mL} (Abnormal) Range: 0.450-4.500 :59 CALCIUM, IONIZED (64620) Comments: PATIENT NOT FASTINGPERFORMED BY: CB [facility] Tjivdg7318 [address] Road[address]ublin [place] [id number] Calcium, Ionized, Serum 5.3 mg/dL (Normal) Range: 4.5-5.6 :59 PHOSPHORUS (41289) Comments: PATIENT NOT FASTINGPERFORMED BY: CB [facility] Gvvaoi1599 [address] Road[address]ublin [place] [id number] Phosphorus, Serum 4.1 mg/dL (Normal) Range: 2.5-4.5 :59 PARATHORMONE (50345) Comments: PATIENT NOT FASTINGPERFORMED BY: CB [facility] Dkjhzv3714 [address] Road[address] [place] [id number] PTH, Intact 29 pg/mL (Normal) Range: 15-65 :59 VITAMIN B-12 (CYANOCOBALAMIN) Comments: PATIENT NOT FASTINGPERFORMED BY: CB [facility] Xccjsy0738 [address] Road[address]ublin [place] [id number] (16266) Vitamin B12 793 pg/mL (Normal) Range: 211-946 :59 Anti-TPO Antibody (52685) Comments: PATIENT NOT FASTINGPERFORMED BY: [facility]6370 [facility] [id number] Thyroid Peroxidase (TPO) Ab 8 {IU/mL} (Normal) Range: 0-34 :59 T4, FREE (THYROXINE) Comments: PATIENT NOT FASTINGPERFORMED BY: [facility]6370 [facility] [id number] Information: [id number] (05991) T4,Free(Direct) 1.44 ng/dL (Normal) Range: 0.82-1.77 :59 T3, FREE (TRIDOTHYRONINE) (13884) Comments: PATIENT NOT FASTINGPERFORMED BY: [facility]6370 [facility] [id number] Triiodothyronine,Free,Serum 3.1 pg/mL (Normal) Range: 2.0-4.4 :13 CBC W/Diff, Automated Comments: CBCD IS FOR [facility] Xqvgmmnbns8025 [facility] [place], [place], [id number] ; ordered by maco Absolute Lymph 0.96 {X10_3/ul} (Normal) Range: 0.83-4.51 Absolute Neut 4.6 {X10_3/uL} (Normal) Range: 2.0-7.7 IM GRAN % 0.400 % (Normal) Range: 0.0-0.9 Comments: IG% - Immature Granulocytes (promyelocytes, myelocytes andmetamyelocytes) > 1% indicates that a LEFT SHIFT is Present. BASO% 0.9 % (Normal) Range: 0-1 EO% 2.9 % (Normal) Range: 0-5 MONO% 13.4 % (Abnormal) Range: 0-10 LY% 14.2 % (Abnormal) Range: 19-41 NEUT% 68.2 % (Normal) Range: 47-70 MPV 10.0 fL (Normal) Range: 6.2-12.0 PLT 242 K/mm3 (Normal) Range: 150-450 RDW SD 44.1 fL (Abnormal) Range: 35.1-43.9 RDW CV 13.0 % (Normal) Range: 11.6-14.6 MCHC 34.3 {g/gl} (Normal) Range: 32-36 MCH 32.3 pg (Abnormal) Range: 27.0-32.0 MCV 94.0 fL (Normal) Range: 80-94 HCT 44.0 % (Normal) Range: 40-54 HGB 15.1 g/dL (Normal) Range: 13.0-16.5 RBC 4.68 {M/mm3} (Normal) Range: 4.6-6.2 WBC 6.8 K/mm3 (Normal) Range: 4.4-11.0 :13 Comprehensive Metabolic Profil Comments: LIPID,CMP,TSH ARE FOR AND CMP AND CBCD ARE FOR [facility] Lrqjmtnroq66[address] [place], [place], [id number] GAP 4 (Abnormal) Range: 5-15 CO2 31.0 mmol/L (Normal) Range: 21.0-32.0 CL 107 mmol/L (Normal) Range: 98-107 K 3.7 mmol/L (Normal) Range: 3.5-5.1 NA 142 mmol/L (Normal) Range: 136-145 T BILI 0.90 mg/dL (Normal) Range: 0.20-1.00 ALT 29 U/L (Normal) Range: 12-78 ALK P 50 U/L (Normal) Range: 50-136 AST 19 U/L (Normal) Range: 15-37 CA 7.7 mg/dL (Abnormal) Range: 8.5-10.1 A/G 1.4 {RATIO} (Normal) Range: 0.9-2.4 GLOB 2.6 g/dL (Normal) Range: 2.3-3.5 ALB 3.7 g/dL (Normal) Range: 3.4-5.0 T PROT 6.3 g/dL (Abnormal) Range: 6.4-8.2 BUN/CRE 17.0 {RATIO} (Normal) Range: 10-20 EST GFR - AA 99 mL/min (Normal) Comments: GFR Calc EST GFR 82 mL/min (Normal) Comments: Non- GFR Calc CREAT,SERUM 1.00 mg/dL (Normal) Range: 0.70-1.30 Comments: The validity of the calculated GFR AND GFRAA in patients over70 years has not been determined. Clinical correlation isessential. BUN 17 mg/dL (Normal) Range: 7-18 GLU 83 mg/dL (Normal) Range: 70-110 :13 Lipid Profile Comments: LIPID,CMP,TSH ARE FOR AND CMP AND CBCD ARE FOR [facility] Snvaalxokh[address] [place], [address] VLDL 19 mg/dL (Normal) Range: 5-40 LDL 84 mg/dL (Normal) Range: 0-130 HDL 35 mg/dL (Abnormal) Comments: The drugs N-Acetylcysteine and Metamizole may falsely deressthis assay. Reference Range HDL <40 mg/dL Low HDL Cholesterol HDL >or= 60 mg/dL High HDL Cholesterol TRIG 93 mg/dL (Normal) Comments: The drugs N-Acetylcysteine and Metamizole may falsely deressthis assay.Serum Triglycerides Reference Interval Normal <150 mg/dL Borderline high 150 - 199 mg/dL High 200 - 499 mg/dL Very High > or = 500 mg/dL CHOL 138 mg/dL (Normal) Comments: <200 mg/dL Desirable 200-240 mg/dL Borderline >240 mg/dL High Risk :13 Thyroid Stim Hormone (TSH) Comments: LIPID,CMP,TSH ARE FOR AND CMP AND CBCD ARE FOR [facility] [id number] [place], [address] TSH 0.61 {uIU/mL} (Normal) Range: 0.358-3.74 [id number] Rapid Flu (10894 x 2) Comments: neg Influenza A Ag negative (Normal) : Jacy Osei CMP14 SPRCS (Normal) Comments: PATIENT WAS FASTINGPERFORMED BY: [facility]Co[facility] HospitalWjtboa5043 [facility] [id number] 17 Default Comments: A hand-written panel/profile was received from your office. Inaccordance with the [facility] Ambiguous Test Code Policy dated February2003, we have completed your order by using the closest currentlyor formerl y recognized AMA panel. We have assigned ComprehensiveMetabolic Panel (14), Test Code #[id number] to this request. If thisis not the testing you wished to receive on this specimen, pleasecontact the [facility]Rank[facility] Client Inquiry/Technical Services Departmentto clarify the test order. We appreciate your business. : Jacy Osei [facility] (Normal) Comments: PATIENT WAS FASTINGPERFORMED BY: [facility] [facility] [id number] 17 Default Comments: A hand-written panel/profile was received from your office. Inaccordance with the [facility] Ambiguous Test Code Policy dated February2003, we have completed your order by using the closest currentlyor formerl y recognized AMA panel. We have assigned Lipid Panel,Test Code #[id number] to this request. If this is not the testing youwished to receive on this specimen, please contact the [facility]Kn[facility] Hospitalient In[facility]/Techni burak Services Department to clarify the testorder. We appreciate your business. :17 Comp. Metabolic Panel (14) Comments: PATIENT WAS FASTINGPERFORMED BY: [facility]6[address] [facility] [id number] ALT (SGPT) 21 [iU]/L (Normal) Range: 0-44 AST (SGOT) 21 [iU]/L (Normal) Range: 0-40 Alkaline Phosphatase, S 51 [iU]/L (Normal) Range: 39-117 Bilirubin, Total 1.0 mg/dL (Normal) Range: 0.0-1.2 A/G Ratio 2.1 (Normal) Range: 1.1-2.5 Globulin, Total 2.0 g/dL (Normal) Range: 1.5-4.5 Albumin, Serum 4.1 g/dL (Normal) Range: 3.5-5.5 Protein, Total, Serum 6.1 g/dL (Normal) Range: 6.0-8.5 Calcium, Serum 9.1 mg/dL (Normal) Range: 8.7-10.2 Carbon Dioxide, Total 25 mmol/L (Normal) Range: 18-29 Chloride, Serum 100 mmol/L (Normal) Range: 97-108 Potassium, Serum 4.0 mmol/L (Normal) Range: 3.5-5.2 Sodium, Serum 141 mmol/L (Normal) Range: 134-144 BUN/Creatinine Ratio 12 (Normal) Range: 9-20 eGFR If Africn Am 90 mL/min/1.73 (Normal) eGFR If NonAfricn Am 78 mL/min/1.73 (Normal) Creatinine, Serum 1.06 mg/dL (Normal) Range: 0.76-1.27 BUN 13 mg/dL (Normal) Range: 6-24 Glucose, Serum 93 mg/dL (Normal) Range: 65-99 :17 Lipid Panel Comments: PATIENT WAS FASTINGPERFORMED BY: NurseBuddy70 TRIXandTRAXFormerly [facility] [id number]; non-emergent till apt LDL Cholesterol Calc 95 mg/dL (Normal) Range: 0-99 VLDL Cholesterol Burak 21 mg/dL (Normal) Range: 5-40 HDL Cholesterol 33 mg/dL (Abnormal) Comments: According to ATP-III Guidelines, HDL-C >59 mg/dL is considered anegative risk factor for CHD. Triglycerides 107 mg/dL (Normal) Range: 0-149 Cholesterol, Total 149 mg/dL (Normal) Range: 100-199 :17 Prostate-Specific Ag, Serum Comments: PATIENT WAS FASTINGPERFORMED BY: [id number] TRIXandTRAXFormerly [facility] [id number] Prostate Specific Ag, 1.0 ng/mL (Normal) Range: 0.0-4.0 Serum Comments: [employer] ECLIA methodology. .According to the [place] [employer], Serum PSA shoulddecrease and remain at undetectable levels after radicalprostatectomy. The AUA defines biochemical recurrence as an initialPSA value 0.2 ng/mL or greater followed by a subsequent confirmatoryPSA value 0.2 ng/mL or greater.Values obtained with d ifferent assay methods or kits cannot be usedinterchangeably. Results cannot be interpreted as absolute evidenceof the presence or absence of malignant disease. [id number] CBC W/Diff, Automated Comments: Test performed at:[facility] [address] [place] [address] Absolute Lymph 1.54 {X10_3/ul} (Normal) Range: 0.83-4.51 Absolute Neut 3.6 {X10_3/uL} (Normal) Range: 2.0-7.7 IM GRAN % 0.200 % (Normal) Range: 0.0-0.9 Comments: IG% - Immature Granulocytes (promyelocytes, myelocytes andmetamyelocytes) > 1% indicates that a LEFT SHIFT is Present. BASO% 1.2 % (Abnormal) Range: 0-1 EO% 2.5 % (Normal) Range: 0-5 MONO% 12.4 % (Abnormal) Range: 0-10 LY% 25.4 % (Normal) Range: 19-41 NEUT% 58.3 % (Normal) Range: 47-70 MPV 10.3 fL (Normal) Range: 6.2-12.0 PLT 292 K/mm3 (Normal) Range: 150-450 RDW SD 42.1 fL (Normal) Range: 35.1-43.9 RDW CV 12.6 % (Normal) Range: 11.6-14.6 MCHC 35.4 {g/gl} (Normal) Range: 32-36 MCH 32.8 pg (Abnormal) Range: 27.0-32.0 MCV 92.8 fL (Normal) Range: 80-94 HCT 42.7 % (Normal) Range: 40-54 HGB 15.1 g/dL (Normal) Range: 13.0-16.5 RBC 4.60 {M/mm3} (Normal) Range: 4.6-6.2 WBC 6.1 K/mm3 (Normal) Range: 4.4-11.0 [id number] Comprehensive Metabolic Profil Comments: Test performed at:[facility] [address] [place] [address] GAP 7 (Normal) Range: 5-15 CO2 29.0 mmol/L (Normal) Range: 21.0-32.0 CL 105 mmol/L (Normal) Range: 98-107 K 3.8 mmol/L (Normal) Range: 3.5-5.1 NA 141 mmol/L (Normal) Range: 136-145 T BILI 0.70 mg/dL (Normal) Range: 0.20-1.00 ALT 37 U/L (Normal) Range: 12-78 ALK P 56 U/L (Normal) Range: 50-136 AST 20 U/L (Normal) Range: 15-37 CA 8.6 mg/dL (Normal) Range: 8.5-10.1 A/G 1.3 {RATIO} (Normal) Range: 0.9-2.4 GLOB 2.9 g/dL (Normal) Range: 2.3-3.5 ALB 3.7 g/dL (Normal) Range: 3.4-5.0 T PROT 6.6 g/dL (Normal) Range: 6.4-8.2 BUN/CRE 14.6 {RATIO} (Normal) Range: 10-20 EST GFR - AA 104 mL/min (Normal) EST GFR 86 mL/min (Normal) CREAT,SERUM 0.96 mg/dL (Normal) Range: 0.70-1.30 Comments: The validity of the calculated GFR AND GFRAA in patients over70 years has not been determined. Clinical correlation isessential. BUN 14 mg/dL (Normal) Range: 7-18 GLU 81 mg/dL (Normal) Range: 70-110 [id number] CBC W/Diff, Automated Comments: Test performed at:[facility] [address] [place], [place] [id number] Absolute Lymph 1.35 {X10_3/ul} (Normal) Range: 0.83-4.51 Absolute Neut 4.2 {X10_3/uL} (Normal) Range: 2.0-7.7 IM GRAN % 0.300 % (Normal) Range: 0.0-0.9 Comments: IG% - Immature Granulocytes (promyelocytes, myelocytes andmetamyelocytes) > 1% indicates that a LEFT SHIFT is Present. BASO% 0.9 % (Normal) Range: 0-1 EO% 3.3 % (Normal) Range: 0-5 MONO% 15.0 % (Abnormal) Range: 0-10 LY% 19.6 % (Normal) Range: 19-41 NEUT% 60.9 % (Normal) Range: 47-70 MPV 10.2 fL (Normal) Range: 6.2-12.0 PLT 248 K/mm3 (Normal) Range: 150-450 RDW SD 44.1 fL (Abnormal) Range: 35.1-43.9 RDW CV 13.3 % (Normal) Range: 11.6-14.6 MCHC 35.3 {g/gl} (Normal) Range: 32-36 MCH 33.4 pg (Abnormal) Range: 27.0-32.0 MCV 94.7 fL (Abnormal) Range: 80-94 HCT 43.1 % (Normal) Range: 40-54 HGB 15.2 g/dL (Normal) Range: 13.0-16.5 RBC 4.55 {M/mm3} (Abnormal) Range: 4.6-6.2 WBC 6.9 K/mm3 (Normal) Range: 4.4-11.0 [id number] Comprehensive Metabolic Profil Comments: Test performed at:[facility] [address] [facility] [place], [place] [id number] GAP 7 (Normal) Range: 5-15 CO2 29.0 mmol/L (Normal) Range: 21.0-32.0 CL 104 mmol/L (Normal) Range: 98-107 K 3.7 mmol/L (Normal) Range: 3.5-5.1 NA 140 mmol/L (Normal) Range: 136-145 T BILI 1.00 mg/dL (Normal) Range: 0.20-1.00 ALT 34 U/L (Normal) Range: 12-78 ALK P 64 U/L (Normal) Range: 50-136 AST 17 U/L (Normal) Range: 15-37 CA 8.6 mg/dL (Normal) Range: 8.5-10.1 A/G 1.4 {RATIO} (Normal) Range: 0.9-2.4 GLOB 2.9 g/dL (Normal) Range: 2.7-4.2 ALB 4.0 g/dL (Normal) Range: 3.4-5.0 T PROT 6.9 g/dL (Normal) Range: 6.4-8.2 BUN/CRE 14.0 {RATIO} (Normal) Range: 10-20 EST GFR - AA 99 mL/min (Normal) EST GFR 82 mL/min (Normal) CREAT,SERUM 1.0 mg/dL (Normal) Range: 0.8-1.3 BUN 14 mg/dL (Normal) Range: 7-18 GLU 82 mg/dL (Normal) Range: 70-110 :27 CBC W/Diff, Automated Comments: Test performed at:[facility] [address] [facility] [place] [address] Absolute Lymph 1.27 {X10_3/ul} (Normal) Range: 0.83-4.51 Absolute Neut 4.1 {X10_3/uL} (Normal) Range: 2.0-7.7 IM GRAN % 0.200 % (Normal) Range: 0.0-0.9 Comments: IG% - Immature Granulocytes (promyelocytes, myelocytes andmetamyelocytes) > 1% indicates that a LEFT SHIFT is Present. BASO% 1.0 % (Normal) Range: 0-1 EO% 2.7 % (Normal) Range: 0-5 MONO% 9.6 % (Normal) Range: 0-10 LY% 20.4 % (Normal) Range: 19-41 NEUT% 66.1 % (Normal) Range: 47-70 MPV 9.7 fL (Normal) Range: 6.2-12.0 PLT 236 K/mm3 (Normal) Range: 150-450 RDW SD 45.5 fL (Abnormal) Range: 35.1-43.9 RDW CV 13.2 % (Normal) Range: 11.6-14.6 MCHC 34.1 {g/gl} (Normal) Range: 32-36 MCH 31.9 pg (Normal) Range: 27.0-32.0 MCV 93.7 fL (Normal) Range: 80-94 HCT 41.7 % (Normal) Range: 40-54 HGB 14.2 g/dL (Normal) Range: 13.0-16.5 RBC 4.45 {M/mm3} (Abnormal) Range: 4.6-6.2 WBC 6.2 K/mm3 (Normal) Range: 4.4-11.0 :27 Comprehensive Metabolic Profil Comments: DR VALLE ORDERED CMP ABD CBCTest performed at:[facility] [address] [place], [place] [id number] GAP 5 (Normal) Range: 5-15 CO2 30.0 mmol/L (Normal) Range: 21.0-32.0 CL 108 mmol/L (Abnormal) Range: 98-107 K 3.8 mmol/L (Normal) Range: 3.5-5.1 NA 143 mmol/L (Normal) Range: 136-145 T BILI 1.00 mg/dL (Normal) Range: 0.00-4.00 ALT 33 U/L (Normal) Range: 12-78 ALK P 46 U/L (Abnormal) Range: 50-136 AST 21 U/L (Normal) Range: 15-37 CA 8.4 mg/dL (Abnormal) Range: 8.5-10.1 A/G 1.5 {RATIO} (Normal) Range: 0.9-2.4 GLOB 2.4 g/dL (Abnormal) Range: 2.7-4.2 ALB 3.7 g/dL (Normal) Range: 3.4-5.0 T PROT 6.1 g/dL (Abnormal) Range: 6.4-8.2 BUN/CRE 10.0 {RATIO} (Normal) Range: 10-20 EST GFR - AA 99 mL/min (Normal) EST GFR 82 mL/min (Normal) CREAT,SERUM 1.0 mg/dL (Normal) Range: 0.8-1.3 BUN 10 mg/dL (Normal) Range: 7-18 GLU 90 mg/dL (Normal) Range: 70-110 32-Mvl-[id number]:27 Lipid Profile Comments: DR VALLE ORDERED CMP ABD CBCTest performed at:[facility] [address] [place], [place] [id number] VLDL 17 mg/dL (Normal) Range: 5-40 LDL 62 mg/dL (Normal) Range: 0-130 HDL 28 mg/dL (Abnormal) Comments: Reference Range HDL <40 mg/dL Low HDL Cholesterol HDL >or= 60 mg/dL High HDL Cholesterol TRIG 85 mg/dL (Normal) Range: 0-199 Comments: Serum Triglycerides Reference Interval Normal <150 mg/dL Borderline high 150 - 199 mg/dL High 200 - 499 mg/dL Very High > or = 500 mg/dL CHOL 107 mg/dL (Normal) Comments: <200 mg/dL Desirable 200-240 mg/dL Borderline >240 mg/dL High Risk [id number]-Zbe-[id number]:25 Crystals, Body Fluid Comments: Comments: ArthrocentesisComments: ArthrocentesisTest performed at:[facility] [address] [place] [address] PATH REV May foll (Normal) SOURCE/BF SYNOVIAL (Normal) CRYSTALS/BF Absent (Normal) [id number]-Emw-[id number]:25 Glucose, Body Fluid Comments: Comments: ArthrocentesisTest performed at:[facility] [address] [place] [address] GLU,BF 10 mg/dL (Normal) [id number]-267412:25 Protein, Body Fluid Comments: Comments: ArthrocentesisTest performed at:[facility] [address] [place], [place] [id number] PROTEIN,BF 4.0 g/dL (Normal) 82-Kzt-33795:29 CMP GAP 5 (Normal) Range: 5-15 CO2 30.0 mmol/L (Normal) Range: 21.0-32.0 CL 107 mmol/L (Normal) Range: 98-107 K 4.2 mmol/L (Normal) Range: 3.5-5.1 NA 142 mmol/L (Normal) Range: 136-145 BIT 0.70 mg/dL (Normal) Range: 0.00-4.00 ALT 35 U/L (Normal) Range: 12-78 ALK 53 U/L (Normal) Range: 50-136 AST 25 U/L (Normal) Range: 15-37 CA 8.8 mg/dL (Normal) Range: 8.5-10.1 AG 1.3 {RATIO} (Normal) Range: 0.9-2.4 GLOB 2.9 g/dL (Normal) Range: 2.7-4.2 ALB 3.7 g/dL (Normal) Range: 3.4-5.0 TPROT 6.6 g/dL (Normal) Range: 6.4-8.2 BC 16.0 {RATIO} (Normal) Range: 10-20 GFRAA 99 mL/min (Normal) GFR 82 mL/min (Normal) CREAT 1.0 mg/dL (Normal) Range: 0.8-1.3 BUN 16 mg/dL (Normal) Range: 7-18 GLU 66 mg/dL (Abnormal) Range: 70-110 :20 CMP GAP 4 (Abnormal) Range: 5-15 CO2 31.0 mmol/L (Normal) Range: 21.0-32.0 CL 106 mmol/L (Normal) Range: 98-107 K 4.1 mmol/L (Normal) Range: 3.5-5.1 NA 141 mmol/L (Normal) Range: 136-145 BIT 1.00 mg/dL (Normal) Range: 0.00-4.00 ALT 37 U/L (Normal) Range: 12-78 ALK 51 U/L (Normal) Range: 50-136 AST 21 U/L (Normal) Range: 15-37 CA 8.9 mg/dL (Normal) Range: 8.5-10.1 AG 1.3 {RATIO} (Normal) Range: 0.9-2.4 GLOB 2.9 g/dL (Normal) Range: 2.7-4.2 ALB 3.7 g/dL (Normal) Range: 3.4-5.0 TPROT 6.6 g/dL (Normal) Range: 6.4-8.2 BC 10.8 {RATIO} (Normal) Range: 10-20 GFRAA 81 mL/min (Normal) GFR 67 mL/min (Normal) CREAT 1.2 mg/dL (Normal) Range: 0.8-1.3 BUN 13 mg/dL (Normal) Range: 7-18 GLU 89 mg/dL (Normal) Range: 70-110 :20 LIPID Comments: non-emergent till apt VLDL 18 mg/dL (Normal) Range: 5-40 LDL 65 mg/dL (Normal) Range: 0-130 HDL 34 mg/dL (Abnormal) Comments: Reference RangeHDL <40 mg/dL Low HDL CholesterolHDL >or= 60 mg/dL High HDL Cholesterol TRIG 88 mg/dL (Normal) Range: 0-199 Comments: Serum Triglycerides Reference IntervalNormal <150 mg/dLBorderline high 150 - 199 mg/dLHigh 200 - 499 mg/ dLVery High > or = 500 mg/dL CHOL 117 mg/dL (Normal) Comments: <200 mg/dL [id number] mg/dL Borderline>240 mg/dL High Risk :20 PSA 1.02 ng/mL (Normal) Range: 0.00-4.00 Comments: This test was performed using the TPSA assay method for [employer] chemistry system. Values obtained with differentassay methods cannot be used interchangably.When changing PSA assays in the course of monitoring apatient, additional sequential testing should be carriedout to confirm baseline values. :02 CBCD ALC 1.41 {X10_3/ul} (Normal) Range: 0.83-4.51 ANC 3.5 {X10_3/uL} (Normal) Range: 2.0-7.7 IG% 0.200 % (Normal) Range: 0.0-0.9 Comments: IG% - Immature Granulocytes (promyelocytes, myelocytes andmetamyelocytes) > 1% indicates that a LEFT SHIFT is Present. B% 1.0 % (Normal) Range: 0-1 E% 2.4 % (Normal) Range: 0-5 M% 11.5 % (Abnormal) Range: 0-10 L% 24.6 % (Normal) Range: 19-41 MPV 10.0 fL (Normal) Range: 6.2-12.0 N% 60.3 % (Normal) Range: 47-70 PLT 246 K/mm3 (Normal) Range: 150-450 RDWCV 12.9 % (Normal) Range: 11.6-14.6 RDWSD 42.5 fL (Normal) Range: 35.1-43.9 MCHC 34.7 {g/gl} (Normal) Range: 32-36 MCH 32.0 pg (Normal) Range: 27.0-32.0 MCV 92.2 fL (Normal) Range: 80-94 HCT 42.6 % (Normal) Range: 40-54 HGB 14.8 g/dL (Normal) Range: 13.0-16.5 RBC 4.62 {M/mm3} (Normal) Range: 4.6-6.2 WBC 5.7 K/mm3 (Normal) Range: 4.4-11.0 :02 CMP GAP 4 (Abnormal) Range: 5-15 CO2 30.0 mmol/L (Normal) Range: 21.0-32.0 CL 106 mmol/L (Normal) Range: 98-107 K 3.8 mmol/L (Normal) Range: 3.5-5.1 NA 140 mmol/L (Normal) Range: 136-145 BIT 0.90 mg/dL (Normal) Range: 0.00-1.00 ALT 29 U/L (Normal) Range: 12-78 ALK 53 U/L (Normal) Range: 45-117 AST 17 U/L (Normal) Range: 15-37 CA 8.9 mg/dL (Normal) Range: 8.5-10.1 AG 1.5 {RATIO} (Normal) Range: 0.9-2.4 ALB 4.0 g/dL (Normal) Range: 3.4-5.0 GLOB 2.6 g/dL (Abnormal) Range: 2.7-4.2 TPROT 6.6 g/dL (Normal) Range: 6.4-8.2 BC 11.0 {RATIO} (Normal) Range: 10-20 GFRAA 99 mL/min (Normal) CREAT 1.0 mg/dL (Normal) Range: 0.8-1.3 GFR 82 mL/min (Normal) BUN 11 mg/dL (Normal) Range: 7-18 GLU 93 mg/dL (Normal) Range: 70-110 81-Rbm-841786:08 CBCD ALC 0.86 {X10_3/ul} (Normal) Range: 0.83-4.51 ANC 3.7 {X10_3/uL} (Normal) Range: 2.0-7.7 IG% 0.200 % (Normal) Range: 0.0-0.9 Comments: IG% - Immature Granulocytes (promyelocytes, myelocytes andmetamyelocytes) > 1% indicates that a LEFT SHIFT is Present. B% 0.6 % (Normal) Range: 0-1 E% 1.9 % (Normal) Range: 0-5 M% 9.1 % (Normal) Range: 0-10 L% 16.7 % (Abnormal) Range: 19-41 MPV 9.7 fL (Normal) Range: 6.2-12.0 N% 71.5 % (Abnormal) Range: 47-70 PLT 225 K/mm3 (Normal) Range: 150-450 RDWSD 42.5 fL (Normal) Range: 35.1-43.9 RDWCV 13.1 % (Normal) Range: 11.6-14.6 MCHC 36.1 {g/gl} (Abnormal) Range: 32-36 MCH 32.4 pg (Abnormal) Range: 27.0-32.0 MCV 89.7 fL (Normal) Range: 80-94 HCT 42.7 % (Normal) Range: 40-54 HGB 15.4 g/dL (Normal) Range: 13.0-16.5 RBC 4.76 {M/mm3} (Normal) Range: 4.6-6.2 WBC 5.2 K/mm3 (Normal) Range: 4.4-11.0 :08 CMP GAP 4 (Abnormal) Range: 5-15 CO2 30.0 mmol/L (Normal) Range: 21.0-32.0 CL 104 mmol/L (Normal) Range: 98-107 K 4.0 mmol/L (Normal) Range: 3.5-5.1 NA 138 mmol/L (Normal) Range: 136-145 BIT 1.20 mg/dL (Abnormal) Range: 0.00-1.00 ALT 32 U/L (Normal) Range: 12-78 ALK 52 U/L (Normal) Range: 45-117 AST 17 U/L (Normal) Range: 15-37 CA 8.9 mg/dL (Normal) Range: 8.5-10.1 AG 1.3 {RATIO} (Normal) Range: 0.9-2.4 GLOB 2.9 g/dL (Normal) Range: 2.7-4.2 ALB 3.8 g/dL (Normal) Range: 3.4-5.0 TPROT 6.7 g/dL (Normal) Range: 6.4-8.2 BC 13.0 {RATIO} (Normal) Range: 10-20 GFRAA 101 mL/min (Normal) GFR 83 mL/min (Normal) CREAT 1.0 mg/dL (Normal) Range: 0.8-1.3 BUN 13 mg/dL (Normal) Range: 7-18 GLU 153 mg/dL (Abnormal) Range: 70-110 Comments: Fasting Glucose result greater than or equal to 126 mg/dLsuggests DIABETES MELLITUS per A.D.A. criteria. :22 CMP GAP 2 (Abnormal) Range: 5-15 CO2 30.0 mmol/L (Normal) Range: 21.0-32.0 CL 107 mmol/L (Normal) Range: 98-107 K 3.9 mmol/L (Normal) Range: 3.5-5.1 NA 139 mmol/L (Normal) Range: 136-145 BIT 1.00 mg/dL (Normal) Range: 0.00-1.00 ALT 35 U/L (Normal) Range: 12-78 ALK 60 U/L (Normal) Range: 50-136 AST 23 U/L (Normal) Range: 15-37 CA 8.6 mg/dL (Normal) Range: 8.5-10.1 AG 1.3 {RATIO} (Normal) Range: 0.9-2.4 GLOB 2.9 g/dL (Normal) Range: 2.7-4.2 ALB 3.8 g/dL (Normal) Range: 3.4-5.0 TPROT 6.7 g/dL (Normal) Range: 6.4-8.2 BC 8.0 {RATIO} (Abnormal) Range: 10-20 GFRAA 101 mL/min (Normal) GFR 83 mL/min (Normal) CREAT 1.0 mg/dL (Normal) Range: 0.8-1.3 BUN 8 mg/dL (Normal) Range: 7-18 GLU 84 mg/dL (Normal) Range: 70-110 54-Fhp-30735:22 LIPID VLDL 15 mg/dL (Normal) Range: 5-40 LDL 64 mg/dL (Normal) Range: 0-130 HDL 30 mg/dL (Abnormal) Comments: Reference RangeHDL <40 mg/dL Low HDL CholesterolHDL >or= 60 mg/dL High HDL Cholesterol TRIG 77 mg/dL (Normal) Range: 0-199 Comments: Serum Triglycerides Reference IntervalNormal <150 mg/dLBorderline high 150 - 199 mg/dLHigh 200 - 499 mg/ dLVery High > or = 500 mg/dL CHOL 109 mg/dL (Normal) Comments: <200 mg/dL Vvfndgpje082-358 mg/dL Borderline>240 mg/dL High Risk 17-Jul-20139:13 DANIELLE CULTURE-OTHER (33134) Comments: PATIENT NOT FASTINGPERFORMED BY: [facility] [id number] [facility] [id number] Information: SRC:GURWINDER [id number] Result 1 RRF (Normal) Comments: Routine respiratory kaden Upper Respiratory Culture Final report (Normal) [id number] Rapid Strep Test, Office (10099) Rapid Strep Test, Office Negative (Normal) :12 CMP GAP 5 (Normal) Range: 5-15 CO2 31.0 mmol/L (Normal) Range: 21.0-32.0 CL 106 mmol/L (Normal) Range: 98-107 K 4.1 mmol/L (Normal) Range: 3.5-5.1 NA 142 mmol/L (Normal) Range: 136-145 BIT 0.70 mg/dL (Normal) Range: 0.00-1.00 ALT 41 U/L (Normal) Range: 12-78 ALK 52 U/L (Normal) Range: 50-136 AST 22 U/L (Normal) Range: 15-37 CA 8.7 mg/dL (Normal) Range: 8.5-10.1 AG 1.4 {RATIO} (Normal) Range: 0.9-2.4 GLOB 2.7 g/dL (Normal) Range: 2.7-4.2 ALB 3.9 g/dL (Normal) Range: 3.4-5.0 TPROT 6.6 g/dL (Normal) Range: 6.4-8.2 BC 16.0 {RATIO} (Normal) Range: 10-20 GFRAA 101 mL/min (Normal) GFR 83 mL/min (Normal) CREAT 1.0 mg/dL (Normal) Range: 0.8-1.3 BUN 16 mg/dL (Normal) Range: 7-18 GLU 88 mg/dL (Normal) Range: 70-110 :12 LIPID VLDL 38 mg/dL (Normal) Range: 5-40 LDL 84 mg/dL (Normal) Range: 0-130 HDL 27 mg/dL (Abnormal) Comments: Reference RangeHDL <40 mg/dL Low HDL CholesterolHDL >or= 60 mg/dL High HDL Cholesterol TRIG 191 mg/dL (Normal) Comments: Serum Triglycerides Reference IntervalNormal <150 mg/dLBorderline high 150 - 199 mg/dLHigh 200 - 499 mg/ dLVery High > or = 500 mg/dL CHOL 149 mg/dL (Normal) Comments: <200 mg/dL Wzsolamyr202-058 mg/dL Borderline>240 mg/dL High Risk :29 CBCD Comments: DR VALLE ORDERED CBCD CMPDR FAST ORDERED CMP LIPID ANC 3.9 3/uL (Normal) Range: 2.0-7.7 IG% 0.30 % (Abnormal) Range: 0.0-0.0 B% 1.1 % (Abnormal) Range: 0-1 E% 2.6 % (Normal) Range: 0-5 M% 11.3 % (Abnormal) Range: 0-10 L% 24.2 % (Normal) Range: 19-41 N% 60.5 % (Normal) Range: 47-70 MPV 10.1 fL (Normal) Range: 6.2-12.0 PLT 256 K/mm3 (Normal) Range: 150-450 RDWSD 39.8 fL (Normal) Range: 35.1-43.9 RDWCV 12.9 % (Normal) Range: 11.6-14.6 MCHC 35.8 g/dL (Normal) Range: 32-36 MCH 31.3 pg (Normal) Range: 27.0-32.0 MCV 87.4 fL (Normal) Range: 80-94 HCT 43.6 % (Normal) Range: 40-54 HGB 15.6 g/dL (Normal) Range: 13.0-16.5 RBC 4.99 {M/mm3} (Normal) Range: 4.6-6.2 WBC 6.5 {k/mm3} (Normal) Range: 4.4-11.0 :29 CMP Comments: DR VALLE ORDERED CBCD CMPDR FAST ORDERED CMP LIPID GAP 7 (Normal) Range: 5-15 CO2 29.0 mmol/L (Normal) Range: 21.0-32.0 CL 106 mmol/L (Normal) Range: 98-107 K 4.0 mmol/L (Normal) Range: 3.5-5.1 NA 142 mmol/L (Normal) Range: 136-145 BIT 0.70 mg/dL (Normal) Range: 0.00-1.00 ALT 51 U/L (Normal) Range: 12-78 ALK 47 U/L (Abnormal) Range: 50-136 AST 22 U/L (Normal) Range: 15-37 CA 8.9 mg/dL (Normal) Range: 8.5-10.1 AG 1.3 {RATIO} (Normal) Range: 0.9-2.4 GLOB 2.9 g/dL (Normal) Range: 2.7-4.2 ALB 3.8 g/dL (Normal) Range: 3.4-5.0 TPROT 6.7 g/dL (Normal) Range: 6.4-8.2 BC 19.1 {RATIO} (Normal) Range: 10-20 GFRAA 90 mL/min (Normal) GFR 74 mL/min (Normal) CREAT 1.1 mg/dL (Normal) Range: 0.8-1.3 BUN 21 mg/dL (Abnormal) Range: 7-18 GLU 99 mg/dL (Normal) Range: 70-110 :29 LIPID Comments: DR VALLE ORDERED CBCD CMPDR FAST ORDERED CMP LIPID VLDL 13 mg/dL (Normal) Range: 5-40 LDL 97 mg/dL (Normal) Range: 0-130 HDL 33 mg/dL (Abnormal) Comments: Reference RangeHDL <40 mg/dL Low HDL CholesterolHDL >or= 60 mg/dL High HDL Cholesterol CHOL 143 mg/dL (Normal) Comments: <200 mg/dL Hmtzwosah100-663 mg/dL Borderline>240 mg/dL High Risk TRIG 66 mg/dL (Normal) Comments: Serum Triglycerides Reference IntervalNormal <150 mg/dLBorderline high 150 - 199 mg/dLHigh 200 - 499 mg/ dLVery High > or = 500 mg/dL :58 CA 8.7 mg/dL (Normal) Range: 8.5-10.1 :58 PHOS 2.8 mg/dL (Normal) Range: 2.5-4.9 :58 PTHIN 43 pg/mL (Normal) Range: 14-72 :58 TSH 0.49 {uIU/mL} (Normal) Range: 0.358-3.74 :58 VITD 33.8 ng/mL (Normal) Range: 30.0-100.0 Comments: Vitamin D deficiency has been defined by the [place] ofMed[employer] and an Endocrine Society practice guideline as alevel of serum 25-OH vitamin D less than 20 ng/mL (1,2).The Endocrine Society went on to further define vitamin Dinsufficiency as a level between 21 and 29 ng/mL (2).1. IOM ([place] of [employer]). 2010. Dietary reference intakes for calcium and D. [place]: The National Academies Press.2. Melanie MF, Evans GARG, Lora CRONIN, et al. Evaluation, treatment, and prevention of vitamin D deficiency: an Endocrine Society clinical practice guideline. JCEM. 2010; 96(0): 1911-30.Performed at: [facility] [address] [id number] Director: Abdi Navarrete PhD, Phone: [phone] CBCD Comments: DR CAI ORDERED CMP LIPIDDR LEONARD ORDERED CMP CBCD ANC 3.0 3/uL (Normal) Range: 2.0-7.7 B% 0.8 % (Normal) Range: 0-1 E% 2.7 % (Normal) Range: 0-5 M% 11.4 % (Abnormal) Range: 0-10 L% 25.7 % (Normal) Range: 19-41 N% 59.4 % (Normal) Range: 47-70 MPV 8.0 fL (Normal) Range: 6.5-12.0 PLT 241 K/mm3 (Normal) Range: 150-450 RDW 13.0 % (Normal) Range: 11.6-14.6 MCHC 35.0 g/dL (Normal) Range: 32-36 MCH 32.6 pg (Abnormal) Range: 27.0-32.0 MCV 93.0 fL (Normal) Range: 80-94 HCT 44.8 % (Normal) Range: 40-54 HGB 15.7 g.dL (Normal) Range: 13.0-16.5 RBC 4.82 {M/mm3} (Normal) Range: 4.6-6.2 WBC 5.1 K/mm3 (Normal) Range: 4.4-11.0 :25 CMP Comments: DR CAI ORDERED CMP LIPIDDR LEONARD ORDERED CMP CBCD GAP 6 (Normal) Range: 5-15 CO2 29.0 mmol/L (Normal) Range: 21.0-32.0 CL 106 mmol/L (Normal) Range: 98-107 K 3.9 mmol/L (Normal) Range: 3.5-5.1 NA 141 mmol/L (Normal) Range: 136-145 BIT 0.90 mg/dL (Normal) Range: 0.00-1.00 ALT 42 U/L (Normal) Range: 12-78 ALK 45 U/L (Abnormal) Range: 50-136 AST 21 U/L (Normal) Range: 15-37 AG 1.4 {RATIO} (Normal) Range: 0.9-2.4 CA 7.9 mg/dL (Abnormal) Range: 8.5-10.1 GLOB 2.7 g/dL (Normal) Range: 2.7-4.2 ALB 3.8 g/dL (Normal) Range: 3.4-5.0 TPROT 6.5 g/dL (Normal) Range: 6.4-8.2 BC 20.0 {RATIO} (Normal) Range: 10-20 GFRAA 114 mL/min (Normal) GFR 94 mL/min (Normal) CREAT 0.9 mg/dL (Normal) Range: 0.8-1.3 BUN 18 mg/dL (Normal) Range: 7-18 GLU 90 mg/dL (Normal) Range: 70-110 [id number] LIPID Comments: DR CAI ORDERED CMP LIPIDDR LEONARD ORDERED CMP CBCD LDL 100 mg/dL (Normal) Range: 0-130 VLDL 14 mg/dL (Normal) Range: 5-40 HDL 37 mg/dL (Abnormal) Comments: Reference Range HDL <40 mg/dL Low HDL Cholesterol HDL >or= 60 mg/dL High HDL Cholesterol CHOL 151 mg/dL (Normal) Comments: <200 mg/dL Desirable 200-240 mg/dL Borderline >240 mg/dL High Risk TRIG 68 mg/dL (Normal) Comments: Serum Triglycerides Reference Interval Normal <150 mg/dL Borderline high 150 - 199 mg/dL High 200 - 499 mg/dL Very High > or = 500 mg/dL [id number] CBCMD Comments: DR VALLE ORDERED CMP CBCDDR AYALA ORDERED CMP PSA CBCMD LIPID RBCM NORM C+C {NORMAL} (Normal) PE ADEQUATE (Normal) EOS 2 % (Normal) Range: 0-5 MON 11 % (Abnormal) Range: 0-10 LYMPH 17 % (Abnormal) Range: 19-41 PMN 70 % (Normal) Range: 47-70 YAEL 100 (Normal) ANC 4.4 3/uL (Normal) Range: 2.0-7.7 PLT 253 K/mm3 (Normal) Range: 150-450 RDW 13.1 % (Normal) Range: 11.6-14.6 MCHC 34.8 g/dL (Normal) Range: 32-36 MCH 31.8 pg (Normal) Range: 27.0-32.0 MCV 91.4 fL (Normal) Range: 80-94 HCT 44.4 % (Normal) Range: 40-54 HGB 15.4 g.dL (Abnormal) Range: 13.0-15.0 Comments: Please note: Revised HEMOGLOBIN REFERENCE RANGES Reference Clctin effective 03/13/12.Please note: Revised HEMOGLOBIN REFERENCE RANGES Reference Clctin effective 03/13/12. RBC 4.86 {M/mm3} (Normal) Range: 4.6-6.2 WBC 6.3 K/mm3 (Normal) Range: 4.4-11.0 [id number] CMP Comments: DR VALLE ORDERED CMP CBCDDR FAST ORDERED CMP PSA CBCMD LIPID GAP 8 (Normal) Range: 5-15 CO2 29.0 mmol/L (Normal) Range: 21.0-32.0 CL 105 mmol/L (Normal) Range: 98-107 K 4.0 mmol/L (Normal) Range: 3.5-5.1 NA 142 mmol/L (Normal) Range: 136-145 BIT 1.30 mg/dL (Abnormal) Range: 0.00-1.00 ALT 32 U/L (Normal) Range: 12-78 ALK 48 U/L (Abnormal) Range: 50-136 AST 17 U/L (Normal) Range: 15-37 CA 8.3 mg/dL (Abnormal) Range: 8.5-10.1 AG 1.3 {RATIO} (Normal) Range: 0.9-2.4 GLOB 3.0 g/dL (Normal) Range: 2.7-4.2 ALB 3.8 g/dL (Normal) Range: 3.4-5.0 TPROT 6.8 g/dL (Normal) Range: 6.4-8.2 BC 17.8 {RATIO} (Normal) Range: 10-20 GFRAA 114 mL/min (Normal) GFR 94 mL/min (Normal) CREAT 0.9 mg/dL (Normal) Range: 0.8-1.3 BUN 16 mg/dL (Normal) Range: 7-18 GLU 93 mg/dL (Normal) Range: 70-110 [id number] LIPID Comments: DR VALLE ORDERED CMP CBCDDR FAST ORDERED CMP PSA CBCMD LIPID LDL 99 mg/dL (Normal) Range: 0-130 VLDL 25 mg/dL (Normal) Range: 5-40 HDL 33 mg/dL (Abnormal) Comments: Reference Range HDL <40 mg/dL Low HDL Cholesterol HDL >or= 60 mg/dL High HDL Cholesterol TRIG 125 mg/dL (Normal) Comments: Serum Triglycerides Reference Interval Normal <150 mg/dL Borderline high 150 - 199 mg/dL High 200 - 499 mg/dL Very High > or = 500 mg/dL CHOL 157 mg/dL (Normal) Comments: <200 mg/dL Desirable 200-240 mg/dL Borderline >240 mg/dL High Risk :36 PSA 0.99 ng/mL (Normal) Comments: DR VALLE ORDERED CMP CBCDDR FAST ORDERED CMP PSA CBCMD LIPID Range: 0.00-4.00 Comments: NEW TEST ASSAY METHOD JANUARY 01, 2012This test was performed using the TPSA assay method for [employer] chemistry system. Values obtained with differentassay methods cannot be used interchangably.When ch anging PSA assays in the course of monitoring apatient, additional sequential testing should be carriedout to confirm baseline values. 06-Wki-226939:09 CBCD Comments: ORDERED LIPID CMPDRShahla VALLE ORDERED CMP CBCD VITD ANC 4.0 3/uL (Normal) Range: 2.0-7.7 B% 0.8 % (Normal) Range: 0-1 E% 1.6 % (Normal) Range: 0-5 M% 8.4 % (Normal) Range: 0-10 L% 20.9 % (Normal) Range: 19-41 N% 68.3 % (Normal) Range: 47-70 MPV 8.2 fL (Normal) Range: 6.5-12.0 PLT 262 K/mm3 (Normal) Range: 150-450 MCHC 34.7 g/dL (Normal) Range: 32-36 RDW 13.0 % (Normal) Range: 11.6-14.6 MCH 32.1 pg (Abnormal) Range: 27.0-32.0 MCV 92.4 fL (Normal) Range: 80-94 HCT 45.9 % (Normal) Range: 40-54 HGB 15.9 g/dL (Normal) Range: 14.0-18.0 RBC 4.97 {M/mm3} (Normal) Range: 4.6-6.2 WBC 5.9 K/mm3 (Normal) Range: 4.4-11.0 :09 CMP Comments: ORDERED LIPID CMPDRShahla VALLE ORDERED CMP CBCD VITD GAP 6 (Normal) Range: 5-15 CO2 30.0 mmol/L (Normal) Range: 21.0-32.0 CL 105 mmol/L (Normal) Range: 98-107 K 4.0 mmol/L (Normal) Range: 3.5-5.1 NA 141 mmol/L (Normal) Range: 136-145 BIT 1.20 mg/dL (Abnormal) Range: 0.00-1.00 ALK 44 U/L (Abnormal) Range: 50-136 ALT 38 U/L (Normal) Range: 12-78 AST 8 U/L (Abnormal) Range: 15-37 CA 8.6 mg/dL (Normal) Range: 8.5-10.1 AG 1.4 {RATIO} (Normal) Range: 0.9-2.4 GLOB 2.9 g/dL (Normal) Range: 2.7-4.2 ALB 4.1 g/dL (Normal) Range: 3.4-5.0 TPROT 7.0 g/dL (Normal) Range: 6.4-8.2 BC 17.5 {RATIO} (Normal) Range: 10-20 GFRAA 131 mL/min (Normal) GFR 108 mL/min (Normal) BUN 14 mg/dL (Normal) Range: 7-18 CREAT 0.8 mg/dL (Normal) Range: 0.8-1.3 GLU 89 mg/dL (Normal) Range: 70-110 06-Aek-014699:09 LIPID Comments: ORDERED LIPID CMPDR. VALLE ORDERED CMP CBCD VITD VLDL 21 mg/dL (Normal) Range: 5-40 HDL 38 mg/dL (Abnormal) Comments: Reference Range HDL <40 mg/dL Low HDL Cholesterol HDL >or= 60 mg/dL High HDL Cholesterol LDL 103 mg/dL (Normal) Range: 0-130 TRIG 104 mg/dL (Normal) Comments: Serum Triglycerides Reference Interval Normal <150 mg/dL Borderline high 150 - 199 mg/dL High 200 - 499 mg/dL Very High > or = 500 mg/dL CHOL 162 mg/dL (Normal) Comments: <200 mg/dL Desirable 200-240 mg/dL Borderline >240 mg/dL High Risk 94-Zdz-256080:09 VITD 40.4 ng/mL (Normal) Comments: ORDERED LIPID CMPDR. LEONARD ORDERED CMP CBCD VITD Range: 30.0-100.0 Comments: Vitamin D deficiency has been defined by the [place] of[employer] and an Endocrine Society practice guideline as alevel of serum 25-OH vitamin D less than 20 ng/mL (1,2).The Endocrine Society went on to further define vitamin Dinsufficiency as a level between 21 and 29 ng/mL (2).1. IOM ([place] of [employer]). 2010. Dietary reference intakes for calcium and D. [place]: The National Academies Press.2. Melanie MF, Evans [place], Mary-Preston CRONIN, et al. Evaluation, treatment, and prevention of vitamin D deficiency: an Endocrine Society clinical practice guideline. JCEM. 2010; 96(7): 1911-30. .Effective October 16, 2011, Vitamin D, 25 Hydroxy specimen requirements will change to serum only.Performed at: [address] [id number] Director: Mirna Gan MD, Phone: [phone] 47-Yab-76970:26 CBCD Comments: DR CAI ORDERED LIPID,LIVERDR LEONARD ORDERED CMP,CBCD ABSOLUTE NEUT 4.7 3/uL (Normal) Range: 2.0-7.7 BASO% 0.6 % (Normal) Range: 0-1 EO% 2.9 % (Normal) Range: 0-5 LY% 12.8 % (Abnormal) Range: 19-41 MONO% 12.6 % (Abnormal) Range: 0-10 MPV 8.1 fL (Normal) Range: 6.5-12.0 NEUT% 71.1 % (Abnormal) Range: 47-70 MCHC 35.2 g/dL (Normal) Range: 32-36 PLT 259 K/mm3 (Normal) Range: 150-450 RDW 13.1 % (Normal) Range: 11.6-14.6 MCH 32.6 pg (Abnormal) Range: 27.0-32.0 MCV 92.7 fL (Normal) Range: 80-94 HCT 42.8 % (Normal) Range: 40-54 HGB 15.0 g/dL (Normal) Range: 14.0-18.0 RBC 4.61 {M/mm3} (Normal) Range: 4.6-6.2 WBC 6.7 K/mm3 (Normal) Range: 4.4-11.0 39-Yat-92925:26 COMP METABOLIC Comments: DR CAI ORDERED LIPID,LIVERDR VALLE ORDERED CMP,CBCD GAP 8 (Normal) Range: 5-15 CL 104 mmol/L (Normal) Range: 98-107 CO2 29.0 mmol/L (Normal) Range: 21.0-32.0 K 4.3 mmol/L (Normal) Range: 3.5-5.1 NA 141 mmol/L (Normal) Range: 136-145 ALT 34 U/L (Normal) Range: 12-78 T BILI 1.30 mg/dL (Abnormal) Range: 0.00-1.00 ALK P 51 U/L (Normal) Range: 50-136 AST 13 U/L (Abnormal) Range: 15-37 CA 8.8 mg/dL (Normal) Range: 8.5-10.1 A/G 1.3 {RATIO} (Normal) Range: 0.9-2.4 GLOB 2.9 g/dL (Normal) Range: 2.7-4.2 ALB 3.9 g/dL (Normal) Range: 3.4-5.0 T PROT 6.8 g/dL (Normal) Range: 6.4-8.2 BUN/CRE 11.1 {RATIO} (Normal) Range: 10-20 CREAT,SERUM 0.9 mg/dL (Normal) Range: 0.8-1.3 EST GFR 95 mL/min (Normal) EST GFR - AA 115 mL/min (Normal) BUN 10 mg/dL (Normal) Range: 7-18 GLU 87 mg/dL (Normal) Range: 70-110 :26 D BILI 0.24 mg/dL (Normal) Comments: DR CAI ORDERED LIPID,LIVERDR VALLE ORDERED CMP,CBCD Range: 0.00-0.30 :26 LIPID Comments: DR CAI ORDERED LIPID,LIVERDR LEONARD ORDERED CMP,CBCD HDL 29 mg/dL (Abnormal) Comments: Reference Range HDL <40 mg/dL Low HDL Cholesterol HDL >or= 60 mg/dL High HDL Cholesterol LDL 113 mg/dL (Normal) Range: 0-130 VLDL 18 mg/dL (Normal) Range: 5-40 CHOL 160 mg/dL (Normal) Comments: <200 mg/dL Desirable 200-240 mg/dL Borderline >240 mg/dL High Risk TRIG 88 mg/dL (Normal) Comments: Serum Triglycerides Reference Interval Normal <150 mg/dL Borderline high 150 - 199 mg/dL High 200 - 499 mg/dL Very High > or = 500 mg/dL :15 AMANDEEP DIR SEMI-QL AMANDEEP DIRECT 229 AU/mL (Abnormal) Comments: REFLEX AMANDEEP PANEL TESTING CAN BE PERFORMED FROM THISSPECIMEN. PHYSICIAN ORDER REQUIRED. CALL [facility] FORTHIS REFLEX TESTING. 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 AB 47 AU/mL (Normal) ANTI-COOK AB 12 AU/mL (Normal) :15 ANTI JO1 ANTI KATERIN 21 AU/mL (Normal) :15 ANTI SCL 70 ANTI-SCL 70 15 AU/mL (Normal) :15 ANTI-CCP 255112 3 {units} (Normal) Range: 0-19 Comments: Negative <20 Weak positive 20 - 39 Moderate positive 40 - 59 Strong positive >59 :15 ANTI-dsDNA AB 10 {IU/mL} (Normal) :15 CBCD ABSOLUTE NEUT 3.9 3/uL (Normal) Range: 2.0-7.7 BASO% 0.7 % (Normal) Range: 0-1 EO% 1.6 % (Normal) Range: 0-5 HCT 48.9 % (Normal) Range: 40-54 HGB 17.1 g/dL (Normal) Range: 14.0-18.0 LY% 20.0 % (Normal) Range: 19-41 MCH 31.5 pg (Normal) Range: 27.0-32.0 MCHC 34.9 g/dL (Normal) Range: 32-36 MCV 90.1 fL (Normal) Range: 80-94 MONO% 8.2 % (Normal) Range: 0-10 MPV 8.7 fL (Normal) Range: 6.5-12.0 NEUT% 69.5 % (Normal) Range: 47-70 PLT 276 K/mm3 (Normal) Range: 150-450 RBC 5.42 {M/mm3} (Normal) Range: 4.6-6.2 RDW 12.5 % (Normal) Range: 11.6-14.6 WBC 5.6 K/mm3 (Normal) Range: 4.4-11.0 :15 CENTROMERE B 8 AU/mL (Normal) :15 COMP C3 6452 106 (Normal) Range: 90-180 Comments: INFCE Result Units: mg/dL Adult :15 COMP C4 1834 29 (Normal) Range: 9-36 Comments: INFCE Result Units: mg/dL Adult :15 COMP METABOLIC ALK P 60 U/L (Normal) Range: 50-136 ALT 27 U/L (Normal) Range: 12-78 AST 14 U/L (Abnormal) Range: 15-37 CL 103 mmol/L (Normal) Range: 98-107 CO2 31.0 mmol/L (Normal) Range: 21.0-32.0 GAP 6 (Normal) Range: 5-15 K 4.1 mmol/L (Normal) Range: 3.5-5.1 NA 140 mmol/L (Normal) Range: 136-145 T BILI 1.30 mg/dL (Abnormal) Range: 0.00-1.00 A/G 1.3 {RATIO} (Normal) Range: 0.9-2.4 ALB 4.1 g/dL (Normal) Range: 3.4-5.0 BUN 8 mg/dL (Normal) Range: 7-18 BUN/CRE 8.9 {RATIO} (Abnormal) Range: 10-20 CA 9.6 mg/dL (Normal) Range: 8.5-10.1 CREAT,SERUM 0.9 mg/dL (Normal) Range: 0.8-1.3 EST GFR 95 mL/min (Normal) EST GFR - AA 115 mL/min (Normal) GLOB 3.2 g/dL (Normal) Range: 2.7-4.2 GLU 76 mg/dL (Normal) Range: 70-110 T PROT 7.3 g/dL (Normal) Range: 6.4-8.2 :15 COMPLETE UA MUCUS, URINE 0 SEEN {/hpf} (Normal) BACTERIA RARE {/hpf} (Normal) LEUK ESTERASE SeeNote (Normal) Comments: Result: NEGATIVE NITRITE UR SeeNote (Normal) Comments: Result: NEGATIVE OCCULT BLOOD-UR SeeNote (Normal) Comments: Result: NEGATIVE RBC-UA 0 SEEN {/hpf} (Normal) Range: 0-5 SQUAM EPI 0 SEEN {/hpf} (Normal) Range: 0-5 WBC SeeNote {/hpf} (Normal) Range: 0-5 Comments: Result: 0-5 SEEN pH UR 7.0 (Normal) Range: 5.0-8.0 PROT DIPSTX SeeNote (Normal) Comments: Result: NEGATIVE UROBILI 0.2 EU/dl (Normal) Range: 0.2 - 1.0 BILIRUBIN URINE SeeNote (Normal) Comments: Result: NEGATIVE CLARITY CLEAR (Normal) GLUCOSE, UR SeeNote (Normal) Comments: Result: NEGATIVE KETONE UR SeeNote mg/dL (Normal) Comments: Result: NEGATIVE SP.GR. DIPSTX 1.010 (Normal) Range: 1.002-1.030 COLOR YELLOW (Normal) :15 HB CORE [id number] SeeNote (Normal) Comments: Result: Negative Performed at: - [facility] [address] [id number] Director: Mirna Gan MD, Phone: [phone] at: - [address] [id number] Director: Terrence Moreno MD, Phone: [phone] at: [facility] [id number] Director: Viral Maya PhD, Phone: [phone] HBsAg 6510 HB SURF AG 6510 SeeNote (Normal) Comments: Result: Negative : HEBSAB 6395 < 0.1 (Normal) Range: 0.00-0.99 Comments: Status of Immunity Anti-HBs Level Inconsistent with Immunity 0.00 - 0.99 Consistent with Immunity >0.99 . An Index Value of 1.00 is equivalent to 10 mIU/mL. However the magnitude of the Index Value is not indicative of the total amount of antibody present. : HEP C AB 680979 <0.1 (Normal) Range: 0.0-0.9 Comments: Negative: < 0.8 Indeterminate 0.8 - 0.9 Positive: > 0.9 . In order to reduce the incidence of a false positive result, the CDC recommends that all s/co ratios between 1.0 and 10.9 be confirmed with additional RIBA or PCR testing. : HLA B27 6924 HLA B27 SeeNote (Normal) Comments: Result: Negative This test was performed using PCR (Polymerase ChainReaction)/SSOP (Sequence Specific Oligonucleotide Probes)technique. SBT (Sequence Based Typing) and/or SSP(Sequence Specific Primers ) may be used as supplementalmethods when necessary. Please contact [facility] at if you have any questions. . Director of [facility] Dr Viral Maya, PhD : PROT+CRE RATIO PROT:CRE RATIO <TEST NOT PERFORMED> {mg/g_CRE} (Normal) Range: 0-200 PROTEIN,UR.RAN. < 6.0 mg/dL (Normal) UR CREAT 17.0 mg/dL (Normal) : SJOGREN'S SSA 229 AU/mL (Abnormal) SJOGRENS SSB SJOGREN'S SSB 18 AU/mL (Normal) : VIT D,25 77828 46.3 ng/mL (Normal) Range: 32.0-100.0 Comments: Recent studies consider the lower limit of 32.0 ng/mL to nicanor threshold for optimal health.Aleks LOUIS. J Nutr. 2005 Sep;135(2):317-22. 47-Txq-493297:17 AMANDEEP DIR SEMI-QL AMANDEEP DIRECT 261 AU/mL (Abnormal) Comments: REFLEX AMANDEEP PANEL TESTING CAN BE PERFORMED FROM THISSPECIMEN. PHYSICIAN ORDER REQUIRED. CALL [facility] FORTHIS REFLEX TESTING. [phone] 03-Sty-449009:17 ANTI-dsDNA AB 9 {IU/mL} (Normal) :17 C-REACTIVE PROT < 2.90 mg/L (Normal) Range: 0.0-3.0 Comments: C-Reactive Protein (CRP) provides useful information for thediagnosis, therapy and monitoring of inflammatory processesand associated diseases. For the evaluation of Relative Riskfor Cardiovascular Dise ase, a High Sensitivity CRP (HSCRP)should be ordered. 72-Qcm-680818:17 CBCD,SMEAR DIFF CELLS COUNTED 100 (Normal) EOS 3 % (Normal) Range: 0-5 LYMPH 20 % (Normal) Range: 19-41 MONOCYTE 11 % (Abnormal) Range: 0-10 PLT EST SeeNote (Normal) Comments: Result: ADEQUATE RED CELL MORPH SeeNote {NORMAL} (Normal) Comments: Result: NORM C+C SEGS 66 % (Normal) Range: 47-70 ABSOLUTE NEUT 4.0 3/uL (Normal) Range: 2.0-7.7 HCT 46.7 % (Normal) Range: 40-54 HGB 16.5 g/dL (Normal) Range: 14.0-18.0 MCH 32.3 pg (Abnormal) Range: 27.0-32.0 MCHC 36.1 g/dL (Abnormal) Range: 32-36 MCV 89.6 fL (Normal) Range: 80-94 PLT 262 K/mm3 (Normal) Range: 150-450 RBC 5.20 {M/mm3} (Normal) Range: 4.6-6.2 RDW 12.4 % (Normal) Range: 11.6-14.6 WBC 6.0 K/mm3 (Normal) Range: 4.4-11.0 :17 COMP METABOLIC GAP 4 (Abnormal) Range: 5-15 A/G 1.4 {RATIO} (Normal) Range: 0.9-2.4 ALK P 49 U/L (Abnormal) Range: 50-136 ALT 31 U/L (Normal) Range: 12-78 AST 13 U/L (Abnormal) Range: 15-37 CA 8.7 mg/dL (Normal) Range: 8.5-10.1 CL 105 mmol/L (Normal) Range: 98-107 CO2 31.0 mmol/L (Normal) Range: 21.0-32.0 K 4.0 mmol/L (Normal) Range: 3.5-5.1 NA 140 mmol/L (Normal) Range: 136-145 T BILI 1.20 mg/dL (Abnormal) Range: 0.00-1.00 ALB 3.9 g/dL (Normal) Range: 3.4-5.0 BUN 19 mg/dL (Abnormal) Range: 7-18 BUN/CRE 19.0 {RATIO} (Normal) Range: 10-20 CREAT,SERUM 1.0 mg/dL (Normal) Range: 0.8-1.3 EST GFR 84 mL/min (Normal) EST GFR - AA 102 mL/min (Normal) GLOB 2.7 g/dL (Normal) Range: 2.7-4.2 GLU 99 mg/dL (Normal) Range: 70-110 T PROT 6.6 g/dL (Normal) Range: 6.4-8.2 59-Jsv-480753:17 COMPLETE UA BACTERIA 0 SEEN {/hpf} (Normal) LEUK ESTERASE SeeNote (Normal) Comments: Result: NEGATIVE MUCUS, URINE 0 SEEN {/hpf} (Normal) OCCULT BLOOD-UR SeeNote (Normal) Comments: Result: NEGATIVE RBC-UA 0 SEEN {/hpf} (Normal) Range: 0-5 SQUAM EPI SeeNote {/hpf} (Normal) Range: 0-5 Comments: Result: 0-5 SEEN WBC 0 SEEN {/hpf} (Normal) Range: 0-5 BILIRUBIN URINE SeeNote (Normal) Comments: Result: NEGATIVE GLUCOSE, UR SeeNote (Normal) Comments: Result: NEGATIVE KETONE UR SeeNote mg/dL (Normal) Comments: Result: NEGATIVE NITRITE UR SeeNote (Normal) Comments: Result: NEGATIVE pH UR 7.0 (Normal) Range: 5.0-8.0 PROT DIPSTX SeeNote (Normal) Comments: Result: NEGATIVE SP.GR. DIPSTX 1.015 (Normal) Range: 1.002-1.030 UROBILI 0.2 EU/dl (Normal) Range: 0.2 - 1.0 CLARITY CLEAR (Normal) COLOR YELLOW (Normal) 88-Smb-153897:17 ESR SED RATE 1 mm/h (Normal) Range: 0-20 82-Nnt-543482:17 LIPID HDL 28 mg/dL (Abnormal) Comments: Reference RangeHDL <40 mg/dL Low HDL CholesterolHDL >or= 60 mg/dL High HDL Cholesterol LDL 136 mg/dL (Abnormal) Range: 0-130 TRIG 135 mg/dL (Normal) Comments: Serum Triglycerides Reference IntervalNormal <150 mg/dLBorderline high 150 - 199 mg/dLHigh 200 - 499 mg/ dLVery High > or = 500 mg/dL VLDL 27 mg/dL (Normal) Range: 5-40 CHOL 191 mg/dL (Normal) Comments: <200 mg/dL Gveoakplk690-759 mg/dL Borderline>240 mg/dL High Risk 01-Viz-237236:17 PSA, SCREEN 0.6 ng/mL (Normal) Range: 0.0-4.0 08-Aee-529490:17 RHEUMATOID FAC < 10.0 {IU/mL} (Normal) Plan of Care Name Dates Details Instructions BMI 30.0-30.9,adult : Eprescribed prescriptions (G8553) Indication: BMI 30.0-30.9,adult Anxiety : Eprescribed prescriptions (G8553) Indication: Anxiety Attention deficit disorder of adult : Eprescribed prescriptions (G8553) Indication: Attention deficit disorder of adult Bronchitis with asthma, acute : Eprescribed prescriptions (G8553) Indication: Bronchitis with asthma, acute Smoker : Eprescribed prescriptions (G8553) Indication: Smoker Anxiety : Eprescribed prescriptions (G8553) Indication: Anxiety Anxiety : Eprescribed prescriptions (G8553) Indication: Anxiety Smoker : Eprescribed prescriptions (G8553) Indication: Smoker Smoker : Eprescribed prescriptions (G8553) Indication: Smoker Hyperthyroidism : Eprescribed prescriptions (G8553) Indication: Hyperthyroidism Smoker : Eprescribed prescriptions (G8553) Indication: Smoker Hyperthyroidism : Eprescribed prescriptions (G8553) Indication: Hyperthyroidism Acute upper respiratory infection : Eprescribed prescriptions (G8553) Indication: Acute upper respiratory infection Anxiety : Eprescribed prescriptions (G8553) Indication: Anxiety [facility] : Eprescribed prescriptions (G8553) Indication: [facility] Difficulty sleeping : Eprescribed prescriptions (G8553) Indication: Difficulty sleeping Anxiety : Eprescribed prescriptions (G8553) Indication: Anxiety Cough, persistent : Follow up in 1 week Indication: Cough, persistent Cough, persistent : Eprescribed prescriptions (G8553) Indication: Cough, persistent Other hyperlipidemia : Eprescribed prescriptions (G8553) Indication: Other hyperlipidemia Sinusitis, acute : *URI Symptoms Indication: Sinusitis, acute Sinusitis, acute : *Antibiotic Usage Education - Male Indication: Sinusitis, acute Sinusitis, acute : Eprescribed prescriptions (G8553) Indication: Sinusitis, acute Sinusitis, acute : Common Cold *: upper respiratory infection Indication: Sinusitis, acute Upper respiratory infection : Eprescribed prescriptions (G8553) Indication: Upper respiratory infection Other hyperlipidemia : Diet, Exercise, and Wt loss Indication: Other hyperlipidemia Other hyperlipidemia : Eprescribed prescriptions (G8553) Indication: Other hyperlipidemia Other hyperlipidemia : Diet, Exercise, and Wt loss Indication: Other hyperlipidemia Cough : *Antibiotic Usage Education - Male Indication: Cough Cough : Cough Medicines, Nonprescription: cough Indication: Cough Other hyperlipidemia : High Cholesterol (Hypercholesterolemia) *: cholesterol Indication: Other hyperlipidemia Anxiety : Anxiety: anxiety Indication: Anxiety Other hyperlipidemia : Diet, Exercise, and Wt loss Indication: Other hyperlipidemia Anxiety : Anxiety: anxiety Indication: Anxiety Bilateral carotid artery stenosis : *Cholesterol - Medication Side Effects Indication: Bilateral carotid artery stenosis Other hyperlipidemia : *Antidepressant Usage Indication: Other hyperlipidemia Anxiety : *Antidepressant Usage Indication: Anxiety Other hyperlipidemia : Diet, Exercise, and Wt loss Indication: Other hyperlipidemia Other hyperlipidemia : Diet, Exercise, and Wt loss Indication: Other hyperlipidemia Planned Observations TSH (THYROID STIMULATING HORMONE) (65912)Indication: Thyromegaly On: Request THYROXINE FREE (99654)Indication: Thyromegaly On: : Request FREE TRIDOTHYRONINE (T3) (80059)Indication: Thyromegaly On: Request CBC W/AUTO DIFF WBC (24934)Indication: Other hyperlipidemia On: : Request METABOLIC PANEL, COMPREHENSIVE (26477)Indication: Other hyperlipidemia On: Request LIPID PANEL (89590)Indication: Other hyperlipidemia On: Request TSH (79514)Indication: Hyperthyroidism On: 69-Wtb-884872:04 Request METABOLIC PANEL, COMPREHENSIVE (62977)Indication: Other hyperlipidemia On: 11-Ner-035180:04 Request LIPID PANEL (41245)Indication: Other hyperlipidemia On: 33-Czp-782755:04 Request Urine Drug Screen -Medicare (Office - Urine Drug Screen 9 Panel) (49567)Indication: Attention deficit disorder of adult On: 84-Ikp-283240:46 Request Comments: appropriate results positive for amphetamine CBC W/AUTO DIFF WBC (58295)Indication: Memory loss On: :08 Request METABOLIC PANEL, COMPREHENSIVE (22589)Indication: Memory loss On: :08 Request LIPID PANEL (68738)Indication: Other hyperlipidemia On: :08 Request TSH (25533)Indication: Hyperthyroidism On: 92-Kqo-277025:07 Request PSA (PROSTATE SPECIFIC ANTIGEN) (V76.44)Indication: Encounter for screening for malignant neoplasm of prostate (Renamed from Screening for prostate cancer) On: 85-Iqe-274063:01 Request HEPATITIS C ANTIBODY (19121)Indication: Liver function abnormality On: 2-Lpq-056251:18 Request CBC W/AUTO DIFF WBC (30370)Indication: Liver function abnormality On: 70-Iuo-939981:00 Request TSH (19622)Indication: Hyperthyroidism On: 77-Rbc-787042:59 Request METABOLIC PANEL, COMPREHENSIVE (16503)Indication: Liver function abnormality On: 80-Sxx-179211:58 Request LIPID PANEL (17768)Indication: Other hyperlipidemia On: 77-Qut-416927:58 Request METABOLIC PANEL, COMPREHENSIVE (89442)Indication: Liver function abnormality On: 00-Jpn-075205:09 Request CBC W/AUTO DIFF WBC (19326)Indication: Anxiety On: :41 Request LIPID PANEL (17395)Indication: Other hyperlipidemia On: :30 Request TSH (43800)Indication: Hyperthyroidism On: :29 Request HEPATITIS C ANTIBODY (28197)Indication: Encounter for hepatitis C virus screening test for high risk patient On: 97-Tdb-83394:44 Request CBC W/AUTO DIFF WBC (08718)Indication: Abnormal C-reactive protein On: 5-Iqs-345377:16 Request METABOLIC PANEL, COMPREHENSIVE (95261)Indication: Other hyperlipidemia On: :15 Request LIPID PANEL (57527)Indication: Other hyperlipidemia On: :15 Request C-REACT PROT HIGH SENS(hsCRP) (26061)Indication: Abnormal C-reactive protein On: :15 Request PSA (PROSTATE SPECIFIC ANTIGEN) (V76.44)Indication: Encounter for screening for malignant neoplasm of prostate (Renamed from Screening for prostate cancer) On: :16 Request CBC with auto diff (84844)Indication: Memory loss On: :14 Request METABOLIC PANEL, COMPREHENSIVE (16385)Indication: Memory loss On: :14 Request T4, FREE (THYROXINE) (89418)Indication: Hyperthyroidism On: :14 Request T3, FREE (TRIDOTHYRONINE) (05110)Indication: Hyperthyroidism On: :14 Request C-REACT PROT HIGH SENS(hsCRP) (38325)Indication: Abnormal C-reactive protein On: 33-Dwc-365599:14 Request LIPID PANEL (78677)Indication: Other hyperlipidemia On: : Request TSH (76707)Indication: Hyperthyroidism On: 46-Inm-656851:11 Request T4, FREE (THYROXINE) (45469)Indication: Hyperthyroidism On: :21 Request T3, FREE (TRIDOTHYRONINE) (12431)Indication: Hyperthyroidism On: :21 Request TSH (16680)Indication: Hyperthyroidism On: :13 Request Vitamin D Hydroxy (96507)Indication: Memory loss On: : Request CBC W/AUTO DIFF WBC (58019)Indication: Other hyperlipidemia On: : Request LIPID PANEL (20808)Indication: Other hyperlipidemia On: : Request METABOLIC PANEL, COMPREHENSIVE (63338)Indication: Other hyperlipidemia On: : Request C-REACT PROT HIGH SENS(hsCRP) (20152)Indication: Abnormal C-reactive protein On: : Request T4, FREE (THYROXINE) (29693)Indication: Abnormal TSH On: :16 Request T3, FREE (TRIDOTHYRONINE) (03443)Indication: Abnormal TSH On: :16 Request TSH (27756)Indication: Abnormal TSH On: :16 Request CBC W/AUTO DIFF WBC (35240)Indication: Gastroesophageal reflux disease without esophagitis On: :45 Request METABOLIC PANEL, COMPREHENSIVE (16784)Indication: Other hyperlipidemia On: :45 Request LIPID PANEL (99135)Indication: Other hyperlipidemia On: :44 Request CALCIUM SERUM (30610)Indication: Hypocalcemia On: :00 Request PHOSPHORUS (19374)Indication: Hypocalcemia On: :59 Request PARATHORMONE (74042)Indication: Hypocalcemia On: :59 Request Vitamin D Hydroxy (66823)Indication: Hypocalcemia On: :59 Request TSH (00316)Indication: Anxiety On: 32-Vka-672847:38 Request METABOLIC PANEL, COMPREHENSIVE (81181)Indication: Other hyperlipidemia On: :38 Request LIPID PANEL (21004)Indication: Other hyperlipidemia On: 78-Xoa-184724:33 Request BACT CULTURE ANY-ANAEROBIC (51395)Indication: Sore throat and laryngitis On: :49 Request Rapid Strep Test, Office (71249)Indication: Sore throat and laryngitis On: :48 Request Rapid Flu (75650 x 2)Indication: Fever and chills On: 23-Toi-690059:48 Request PSA (PROSTATE SPECIFIC ANTIGEN) (V76.44)Indication: Screening for prostate cancer On: :03 Request METABOLIC PANEL, COMPREHENSIVE (27497)Indication: Other hyperlipidemia On: :03 Request LIPID PANEL (95936)Indication: Other hyperlipidemia On: 3-Hah-957987:03 Request CBC W/AUTO DIFF WBC (98643)Indication: Elevated blood-pressure reading without diagnosis of hypertension On: :40 Request METABOLIC PANEL, COMPREHENSIVE (80238)Indication: Elevated blood-pressure reading without diagnosis of hypertension On: :40 Request LIPID PANEL (39857)Indication: Other hyperlipidemia On: 6-Vzl-435356:40 Request PSA (PROSTATE SPECIFIC ANTIGEN) (V76.44)Indication: screening On: 8-Xpu-000371:31 Request METABOLIC PANEL, COMPREHENSIVE ([id number])Indication: Other hyperlipidemia On: 5-Dji-265176:30 Request LIPID PANEL ([id number])Indication: Other hyperlipidemia On: :29 Request METABOLIC PANEL, COMPREHENSIVE ([id number])Indication: Other hyperlipidemia On: 8-Gjp-322239:56 Request PSA (PROSTATE SPECIFIC ANTIGEN) ([id number])Indication: Screening for prostate cancer On: 1-Uxb-297985:28 Request PSA (PROSTATE SPECIFIC ANTIGEN) (V76.44)Indication: Screening for prostate cancer On: :25 Request METABOLIC PANEL, COMPREHENSIVE ([id number])Indication: Anxiety On: 72-Xjs-286642:25 Request LIPID PANEL ([id number])Indication: Other hyperlipidemia On: 17-Lsq-384757:00 Request HEPATIC FUNCTION PANEL ([id number])Indication: Other hyperlipidemia On: 11-Ltm-664831:00 Request METABOLIC PANEL, COMPREHENSIVE ([id number])Indication: Other hyperlipidemia On: 26-San-562237:32 Request LIPID PANEL ([id number])Indication: Other hyperlipidemia On: :31 Request METABOLIC PANEL, COMPREHENSIVE ([id number])Indication: Elevated blood-pressure reading without diagnosis of hypertension On: 02-Rpw-994891:23 Request LIPID PANEL ([id number])Indication: Other hyperlipidemia On: 24-Akq-314885:23 Request CALCIUM SERUM ([id number])Indication: Hypocalcemia On: 05-Gyz-051721:30 Request PARATHORMONE ([id number])Indication: Hypocalcemia On: 75-F[address]-018114:30 Request PHOSPHORUS ([id number])Indication: Hypocalcemia On: :29 Request TSH ([id number])Indication: Hypocalcemia On: :29 Request Vitamin D Hydroxy ([id number])Indication: Hypocalcemia On: 12-Rnw-423176:29 Request LIPID PANEL ([id number])Indication: Other hyperlipidemia On: :44 Request METABOLIC PANEL, COMPREHENSIVE ([id number])Indication: Other hyperlipidemia On: :44 Request PSA (PROSTATE SPECIFIC ANTIGEN) (V76.44)Indication: Screening for prostate cancer On: :09 Request LIPID PANEL ([id number])Indication: Other hyperlipidemia On: :08 Request CBC WITH MANUAL DIFF ([id number])Indication: Elevated blood-pressure reading without diagnosis of hypertension On: :08 Request METABOLIC PANEL, COMPREHENSIVE ([id number])Indication: Elevated blood-pressure reading without diagnosis of hypertension On: :08 Request METABOLIC PANEL, COMPREHENSIVE ([id number])Indication: Anxiety On: :46 Request LIPID PANEL ([id number])Indication: Other hyperlipidemia On: :46 Request PSA (PROSTATE SPECIFIC ANTIGEN) (V76.44)Indication: Screening for prostate cancer On: : Request HEPATIC FUNCTION PANEL ([id number])Indication: Other hyperlipidemia On: : Request LIPID PANEL ([id number])Indication: Other hyperlipidemia On: : Request PSA (PROSTATE SPECIFIC ANTIGEN) (V76.44)Indication: Screening for prostate cancer On: 3-Ncm-586963:11 Request HEPATIC FUNCTION PANEL ([id number])Indication: Other hyperlipidemia On: 3-Rtc-150881:10 Request LIPID PANEL ([id number])Indication: Other hyperlipidemia On: 7-Zrq-524228:10 Request HEPATIC FUNCTION PANEL ([id number])Indication: Other hyperlipidemia On: 99-Hgc-303192:04 Request LIPID PANEL ([id number])Indication: Other hyperlipidemia On: 68-Wlp-850272:04 Request PSA (PROSTATE SPECIFIC ANTIGEN) (V76.44)Indication: Screening for prostate cancer On: 8-Xhz-273208:55 Request URINALYSIS, W/ MICRO ([id number])Indication: Osteoarthritis, unspecified osteoarthritis type, unspecified site On: 0-Sjm-611083:55 Request METABOLIC PANEL, COMPREHENSIVE ([id number])Indication: Osteoarthritis, unspecified osteoarthritis type, unspecified site On: :54 Request CBC WITH MANUAL DIFF ([id number])Indication: Osteoarthritis, unspecified osteoarthritis type, unspecified site On: 4-Ssn-254804:54 Request LIPID PANEL ([id number])Indication: Other hyperlipidemia On: 4-Hem-874348:54 Request AMANDEEP (ANTINUCLEAR ANTIBODY) ([id number])Indication: Osteoarthritis, unspecified osteoarthritis type, unspecified site On: 4-Gfx-770225:53 Request RHEUMATOID FACTOR-QUANT ([id number])Indication: Osteoarthritis, unspecified osteoarthritis type, unspecified site On: 0-Rzn-752712:53 Request C-REACTIVE PROTEIN ([id number])Indication: Osteoarthritis, unspecified osteoarthritis type, unspecified site On: 3-Zpp-843445:53 Request SED RATE ERYTHROCYTE ([id number])Indication: Osteoarthritis, unspecified osteoarthritis type, unspecified site On: :53 Request Planned Encounters Medical; [facility] 3 Month FU - On: 21-Oct-2018 15:30 [facility] Fast DO, Ana A Fast DO, Ana A Medical; ADD EST VISIT - On: 27-Jan-2019 15:30 [facility] Terrence HICKEY, Ingrid Lee Planned Procedures Radiology - Knee - Right - Weight On: 22-Jul-2018 Intent BearingBy: Fast DO, Ana A Fast Comments: with patellar sunrise view DO, Ana A Radiology - Knee - Left - Weight On: 22-Jul-2018 Intent BearingBy: Fast DO, Ana A Fast Comments: with patellar sunrise view DO, Ana A Ultrasound - ThyroidBy: Fast DO, On: 22-Jul-2018 Intent Ana A Fast DO, Ana A ELECTROCARDIOGRAM, COMPLETE (ECG) On: 22-Jul-2018 Intent ([id number])By: Fast DO, Ana A Fast Comments: ekg showed normal sinus rhythym, normal axis, no acute st/t wave changes DO, Ana A Flu Vaccine (Quadrivalent) [id number]: On: 30-Apr-2018 Intent Fast DO, Ana A Fast DO, Ana A Comments: Lot #[id number]-L dltd, IMDose prefilled syringegiven by: HERNANDO eVlez reviewed and ABN signed Flu Vaccine (Quadrivalent) [id number]: On: 05-Jun-2017 Intent Fast DO, Ana A Fast DO, Ana A Comments: lot: [id number]: 01/28/18ite/route: L jefe, IMamt: 0.5mlVIS and ABN signed when applicableChelsea, 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 PNEUM VAC ADLT/IMUMNOSPR, SBC/INTRM On: 09-Apr-2017 Intent ([id number])By: Ayala ZAMAN Ana A Ayala Comments: lot: [id number]: 09/20/18site/route: L del/IMamt: 0.5mLVIS signed when applicableKANG Pinto DO, Ana A ELECTROCARDIOGRAM, COMPLETE (ECG) On: 09-Apr-2017 Intent ([id number])By: Ayala ZAMAN Ana A Ayala Comments: ekg showed normal sinus rhythym, normal axis, no acute st/t wave changes DO, Ana A THYROID SCAN UPTAKE ([id number])By: Ayala On: 25-Aug-2016 Intent DO, Ana A Fast DO, Ana A Flu Vaccine (Quadrivalent) [id number]: On: 15-May-2016 Intent Fast DO, Ana A Fast DO, Ana A Comments: Lot #:[id number] date:02/09/17mount given:0.5mlRoute: IMSite given: left dewltoidGiven by: LEANDRO Perez ADMINISTRATION OF INFLUENZA VIRUS On: 15-May-2016 Intent VACCINE ([id number])By: Jung Cai DOa A Fast DO, Ana A CT - Brain/Head (IV Contrast On: 03-Apr-2016 Intent Needed)By: Ayala ZAMAN, Ana A Fast DO, Ana A ELECTROCARDIOGRAM, COMPLETE (ECG) On: 03-Apr-2016 Intent ([id number])By: Jung Cai DOa A Ayala Comments: ekg showed normal sinus rhythym, normal axis, no acute st/t wave changes sinus surjit DO, Ana A Cartoid DopplerBy: Ayala DO, Ana A On: 19-Jul-2015 Intent Fast DO, Ana A Flu Vaccine (Quadrivalent) [id number]: On: 19-Jul-2015 Intent Fast DO, Ana A Fast DO, Ana A Comments: lot [id number]: 02/10/2016site/route L jefe, IMamt 0.5mlVIS and ABN signed when applicableKANG Pinto ADMINISTRATION OF INFLUENZA VIRUS On: 19-Jul-2015 Intent VACCINE ([id number])By: Ayala ZAMAN, Ana A Fast DO, Ana A Aerosol Treatment ([id number])By: Ruchi On: 30-Jun-2015 Intent Janice ZAMAN Comments: more a.e no wheeze -- really better Radiology - Chest- PA and LatBy: On: 30-Jun-2015 Intent Ruchi Janice Cartoid DopplerBy: Fast DO, Ana A On: 18-May-2014 Intent Fast DO, Ana A FLU VAC, SPLIT, >3 YEARS, INTRAMUSC On: 18-May-2014 Intent ([id number])By: Fast DO, Ana A Fast Comments: Lot #:[id number] date:04/2016Amount given:0.5mlRoute: IMSite given: left deltoidGiven by: LEANDRO Perez DO, Ana A IMMUNIZ ADMNIN, 1 VAC, SNGL/COMBO On: 18-May-2014 Intent ([id number])By: Ayala DO, Ana A Fast DO, Ana A Eprescribed prescriptions On: 17-Nov-2013 Intent ([id number])By: Fast DO, Ana A Fast DO, Ana A Solu- Medrol Injection, 125mg On: 05-Aug-2013 Intent ([id number])By: Ayala ZAMAN Ana A Ayala Comments: Lot #[id number] syringegiven by:HERNANDO Dixon signed DO, Ana A Aerosol Treatment ([id number])By: Ayala On: 05-Aug-2013 Intent DO, Ana A Fast DO, Ana A Spirometry ([id number])By: Ayala DO, On: 05-Aug-2013 Intent Ana A Fast DO, Ana A Comments: good effort and curve mod obst Pulse Oximetry ([id number])By: Ayala DO, On: 05-Aug-2013 Intent Ana A Fast DO, Ana A Comments: 98 Radiology - Chest- PA and LatBy: On: 05-Aug-2013 Intent Fast DO, Ana A Fast DO, Ana A Eprescribed prescriptions On: 05-Aug-2013 Intent ([id number])By: Millie Christine FLU VAC, SPLIT, >3 YEARS, INTRAMUSC On: 16-Jul-2013 Intent ([id number])By: Amaris Becerra Comments: Lot #:[id number] date:mount given:0.5mlRoute: IMSite given: L dltdVIS and ABN signedGiven by: LEANDRO Perez IMMUNIZ ADMNIN, 1 VAC, SNGL/COMBO On: 16-Jul-2013 Intent ([id number])By: Amaris Becerra Eprescribed prescriptions On: 16-Jul-2013 Intent (G8553)By: Amaris Becerra EKG ([id number])By: Amaris Becerra On: 24-Feb-2013 Intent Comments: ekg showed normal sinus rhythym, normal axis, no acute st/t wave changes Cartoid DopplerBy: Fast DO, Ana A On: 24-Feb-2013 Intent Fast DO, Ana A Eprescribed prescriptions On: 24-Feb-2013 Intent ([id number])By: Amaris Becerra Eprescribed prescriptions On: 21-Oct-2012 Intent ([id number])By: Amaris Becerra Eprescribed prescriptions On: 29-Jul-2012 Intent (G8553)By: Amaris Becerra FLU VAC, SPLIT, >3 YEARS, INTRAMUSC On: 24-May-2012 Intent ([id number])By: Julissa Salomon LPN Comments: Lot #[id number]/30/13Site-left deltoidgiven by: Carlos Salomon LPN IMMUNTOMAS ADMBALAJI, 1 VAC, SNGL/COMBO On: 24-May-2012 Intent ([id number])By: Julissa Salomon LPN Cartoid DopplerBy: Fast DO, Ana A On: 25-Mar-2012 Intent Fast DO, Ana A Comments: may EKG ([id number])By: Amaris Becerra On: 30-Oct-2011 Intent Comments: ekg showed normal sinus rhythym, normal axis, no acute st/t wave changes TD Injection , IM ([id number])By: On: 06-Jun-2011 Intent Amaris Becerra Comments: [facility] at [facility] FLU VAC, SPLIT, >3 YEARS, INTRAMUSC On: 06-Jun-2011 Intent ([id number])By: Amaris Becerra Comments: Lot #:[id number] date:mount given:0.5mlRoute: IMSite given:left deltGiven by: LEANDRO Perez IMMUNIZ ADMNIN, 1 VAC, SNGL/COMBO On: 06-Jun-2011 Intent ([id number])By: Amaris Becerra DopplerBy: Ana Cai DO On: 25-Apr-2011 Intent Jung Cai DOa A EKG ([id number])By: Ana Cai DO A On: 16-Feb-2010 Intent Ayala ZAMAN Ana A Comments: ekg showed normal sinus rhythym, normal axis, no acute st/t wave changes Planned Medications INJECTION, METHYLPREDNISOLONE SODIUM SUCCINATE, UP TO 125 MG Ordered: 05-Aug-2013 Pending Jung Cai DOa A Jung Cai DOa A Instructions Name Dates Details BMI 30.0-30.9,adult : How to access health information online Indication: BMI 30.0-30.9,adult BMI 30.0-30.9,adult : How to access health information online - Detail Indication: BMI 30.0-30.9,adult BMI 30.0-30.9,adult : Patient Instructions Indication: BMI 30.0-30.9,adult Attention deficit disorder of adult : How to access health information online Indication: Attention deficit disorder of adult Attention deficit disorder of adult : How to access health information online - Detail Indication: Attention deficit disorder of adult Attention deficit disorder of adult : Patient Instructions Indication: Attention deficit disorder of adult Anxiety : How to access health information online Indication: Anxiety Anxiety : How to access health information online - Detail Indication: Anxiety Anxiety : Patient Instructions Indication: Anxiety Attention deficit disorder of adult : How to access health information online Indication: Attention deficit disorder of adult Attention deficit disorder of adult : How to access health information online - Detail Indication: Attention deficit disorder of adult Attention deficit disorder of adult : Patient Instructions Indication: Attention deficit disorder of adult Bronchitis with asthma, acute : How to access health information online Indication: Bronchitis with asthma, acute Bronchitis with asthma, acute : How to access health information online - Detail Indication: Bronchitis with asthma, acute Bronchitis with asthma, acute : Patient Instructions Indication: Bronchitis with asthma, acute Smoker : How to access health information online Indication: Smoker Smoker : How to access health information online - Detail Indication: Smoker Smoker : Patient Instructions Indication: Smoker Attention deficit disorder of adult : How to access health information online Indication: Attention deficit disorder of adult Attention deficit disorder of adult : How to access health information online - Detail Indication: Attention deficit disorder of adult Attention deficit disorder of adult : Patient Instructions Indication: Attention deficit disorder of adult Anxiety : How to access health information online Indication: Anxiety Anxiety : How to access health information online - Detail Indication: Anxiety Anxiety : Patient Instructions Indication: Anxiety Anxiety : How to access health information online Indication: Anxiety Anxiety : How to access health information online - Detail Indication: Anxiety Anxiety : Patient Instructions Indication: Anxiety Attention deficit disorder of adult : How to access health information online Indication: Attention deficit disorder of adult Attention deficit disorder of adult : How to access health information online - Detail Indication: Attention deficit disorder of adult Attention deficit disorder of adult : Patient Instructions Indication: Attention deficit disorder of adult Smoker : How to access health information online Indication: Smoker Smoker : How to access health information online - Detail Indication: Smoker Smoker : Patient Instructions Indication: Smoker Smoker : How to access health information online Indication: Smoker Smoker : How to access health information online - Detail Indication: Smoker Smoker : Patient Instructions Indication: Smoker Hyperthyroidism : How to access health information online Indication: Hyperthyroidism Hyperthyroidism : How to access health information online - Detail Indication: Hyperthyroidism Hyperthyroidism : Patient Instructions Indication: Hyperthyroidism Smoker : How to access health information online Indication: Smoker Smoker : How to access health information online - Detail Indication: Smoker Smoker : Patient Instructions Indication: Smoker Attention deficit disorder of adult : How to access health information online Indication: Attention deficit disorder of adult Attention deficit disorder of adult : How to access health information online - Detail Indication: Attention deficit disorder of adult Attention deficit disorder of adult : Patient Instructions Indication: Attention deficit disorder of adult Hyperthyroidism : How to access health information online Indication: Hyperthyroidism Hyperthyroidism : How to access health information online - Detail Indication: Hyperthyroidism Hyperthyroidism : Patient Instructions Indication: Hyperthyroidism Acute upper respiratory infection : How to access health information online Indication: Acute upper respiratory infection Acute upper respiratory infection : How to access health information online - Detail Indication: Acute upper respiratory infection Acute upper respiratory infection : Patient Instructions Indication: Acute upper respiratory infection Anxiety : How to access health information online Indication: Anxiety Anxiety : How to access health information online - Detail Indication: Anxiety Anxiety : Patient Instructions Indication: Anxiety [facility] : How to access health information online Indication: [facility] : How to access health information online - Detail Indication: [facility] : Patient Instructions Indication: [facility] Difficulty sleeping : How to access health information online - Detail Indication: Difficulty sleeping Difficulty sleeping : Patient Instructions Indication: Difficulty sleeping Anxiety : How to access health information online Indication: Anxiety Anxiety : How to access health information online - Detail Indication: Anxiety Anxiety : Patient Instructions Indication: Anxiety Cough, persistent : Patient Instructions Indication: Cough, persistent Cough, persistent : How to access health information online Indication: Cough, persistent Cough, persistent : How to access health information online - Detail Indication: Cough, persistent Cough, persistent : Patient Instructions Indication: Cough, persistent Other hyperlipidemia : How to access health information online Indication: Other hyperlipidemia Other hyperlipidemia : How to access health information online - Detail Indication: Other hyperlipidemia Other hyperlipidemia : Patient Instructions Indication: Other hyperlipidemia Sinusitis, acute : How to access health information online Indication: Sinusitis, acute Sinusitis, acute : How to access health information online - Detail Indication: Sinusitis, acute Sinusitis, acute : Patient Instructions Indication: Sinusitis, acute Upper respiratory infection : How to access health information online Indication: Upper respiratory infection Upper respiratory infection : How to access health information online - Detail Indication: Upper respiratory infection Upper respiratory infection : Patient Instructions Indication: Upper respiratory infection Other hyperlipidemia : Patient Instructions Indication: Other hyperlipidemia Other hyperlipidemia : Patient Instructions Indication: Other hyperlipidemia Anxiety : Patient Instructions Indication: Anxiety Cough : Patient Instructions Indication: Cough Difficulty sleeping : Patient Instructions Indication: Difficulty sleeping Other hyperlipidemia : Patient Instructions Indication: Other hyperlipidemia Anxiety : Patient Instructions Indication: Anxiety Anxiety : Patient Instructions Indication: Anxiety Encounters Office Visit On: 30-Jul-2018 17:14 Encounter Diagnosis: Thyroid nodule End: 30-Jul-2018 21:22 [facility] Phone Encounter On: 24-Jul-2018 12:04 Encounter Diagnosis: Other hyperlipidemia End: 24-Jul-2018 12:06 [facility] Review On: 22-Jul-2018 13:16 Encounter Reason: Physical male exam - General health: feels well with minor complaints (age related issues. Has put some weight on and not sure where it came from), has good energy level (ok energy, but sometimes get lo w energy friom going to bed too late) and is sleeping well. The patient's appetite is normal. Nutrition: appropriate balanced diet. Exercises 3 days per week. Sleeps on average 6 (during the week but ge ts more on the weekend) hours per night. Normal bowel and bladder habits. There are no current emotional problems. Preventative measures done by patient are screening, colonoscopy (2012, Dr Max, repe at in 10 years) and PSA (12/2017). Note for Physical exam: [facility]: has eye exam end of month- at dentist last week- feeling stress kids issues - sleeping ok- falls asleep easily- most of time w ill feel good upon waking especially until the weekend rolls aroundEncounter Diagnosis: Smoker, BMI 30.0-30.9,adult, [facility] exam, Bilateral carotid artery stenosis, Other hyperlipidemia, Thyromegaly, Bilateral knee pain, Primary dysthymia [facility] Office Visit On: 15-Jul-2018 14:58 Encounter Diagnosis: BMI 31.0-31.9,adult, Attention deficit disorder of adult, Smoker End: 15-Jul-2018 16:05 [facility] Office Visit On: 30-Apr-2018 15:45 Encounter Diagnosis: Need for prophylactic vaccination and inoculation against influenza (Renamed from Need for immunization against influenza) End: 01-May-2018 14:02 [facility] Office Visit On: 03-Apr-2018 15:27 Encounter Reason: Follow up for chronic medical issues - The patient feels well with minor complaints (fell asleep at the wheel yesterday and took out his truck. States his energy starts to go down around 4.), has decrea End: 04-Apr-2018 22:36 sed energy level and is sleeping well. Patient has been compliant with instructions. Current medication use: no side effects and compliant with dosing regimen. Patient sleeps 6 (6-10 depending on the da y) hours per night. Nutrition: balanced diet, supplemental vitamins and low salt diet. The medical issues the patient is following up for include All identified problems below, high cholesterol, osteoar thritis and other (sleep disorder). Note for Follow up for chronic medical issues: weight up eating more carbs - they are working on decreasing - his bp is good- he has been more tired lately- took hi s adderall 2 hour sprio r but working very physical work for several hours a dayand not getting enough sleep so trying to work on making these changes- he remembers being sleepy prior to falling asleep- no cp sob palpitations syncope dizzy Encounter Diagnosis: Smoker, BMI 31.0-31.9,adult, Anxiety (300.00), Other hyperlipidemia, Bilateral carotid artery stenosis, Hyperthyroidism, Obstructive sleep apnea, adult, Psoriatic arthropathy, Fatigue [facility] Office Visit On: 14-Jan-2018 15:06 Encounter Reason: ADHD Medication Check - Adult - Note for ADHD medication check: Pt feels that medication is helping.Encounter Diagnosis: BMI 31.0-31.9,adult, Smoker, Attention deficit disorder of adult End: 14-Jan-2018 16:39 [facility] Annotation/Addendum On: 25-Dec-2017 12:07 Encounter Diagnosis: Unspecified Diagnosis End: 25-Dec-2017 12:13 [facility] Office Visit On: 24-Dec-2017 15:22 Encounter Reason: Follow up tests - Date: (12/17 blood work)., [ADDITIONAL REASON] Follow up for chronic medical issues - The patient feels well with minor complai End: 25-Dec-2017 12:04 nts (getting over a cold but still struggling with chest congestion. Not coughing a lot but feels a rattle in chest and gets winded easily. Has had it for over 2 weeks. Has been taking a lot of OTC mucu s meds and not helping. Has been accompanied by headaches), has decreased energy level and is sleeping well. Patient has been compliant with instructions. Current medication use: no side effects and com pliant with dosing regimen. Patient sleeps 6 (6-10 depending on the day) hours per night. Nutrition: balanced diet, supplemental vitamins and low salt diet. The medical issues the patient is following u p for include All identified problems below, high cholesterol, osteoarthritis and other (sleep disorder). Note for Follow up for chronic medical issues: his weight up 21 pounds- he is off otezla wasnt helping - bp is good- has had to take gerd medsotc and has helped- he hasnt been exercisng- says eating more- they feel his anxiety is doing pretty well as well; as arthrtitis Encounter Diagnosis: Smoker, BMI 31.0-31.9,adult, Wheezing, Bronchitis with asthma, acute, Gastric reflux, Other hyperlipidemia, Bilateral carotid artery stenosis, Hyperthyroidism, Psoriatic arthropathy, Anxiety (300.00) [facility] Office Visit On: 03-Sep-2017 15:25 Encounter Reason: Follow up for chronic medical issues - The patient feels well with no complaints, has good energy level and is sleeping well. Patient has been compliant with instructions. Current medication use: no dinah End: 03-Sep-2017 20:47 e effects and compliant with dosing regimen. Patient sleeps 6 (6-10) hours per night. Nutrition: balanced diet, supplemental vitamins and low salt diet. The medical issues the patient is following up fo r include All identified problems below, high cholesterol, osteoarthritis and other (sleep disorder). Note for Follow up for chronic medical issues: had a tmj flare up 2 weeks ago and then another las t night. per pts , he is clicking his teeth alot is unable to wear CPAP because his jaw is so tender. also pt is concerend about blood pressures going up- took nsaid and went away- thinks rosalia tatied he is sleeping well- he is functioning well at work but he does still have anxiety and feels would like to try higher dose fo the medsEncounter Diagnosis: Smoker, Attention deficit disorder of adult, BMI 30.0-30.9,adult, Anxiety (300.00), Bilateral carotid artery stenosis, Hyperthyroidism, Other hyperlipidemia, Memory loss, Encounter for screening for malignant neoplasm of prostate (Renamed from Screening for prostate cancer) [facility] Office Visit On: 16-Jul-2017 15:30 Encounter Reason: Follow up acute care visit - The patient feeling better since last seen and improving. Patient has been compliant with instructions. Current medication use: no side effects, compliant with dosing regime End: 16-Jul-2017 16:03 n and considered effective by patient. Patient sleeps 7 hours per night. Impact of disease: emotional impact-mild. Nutrition: balanced diet and supplemental vitamins. The medical issues the patient is following up for include other (ADD). Encounter Diagnosis: Attention deficit disorder of adult, Smoker, BMI 28.0-28.9,adult [facility] Historical Summary On: 20-Jun-2017 14:13 Encounter Diagnosis: Liver function abnormality End: 20-Jun-2017 14:20 [facility] Office Visit On: 05-Jun-2017 15:58 Encounter Reason: Injections - The medication the patient is here to receive is other (influenza).Encounter Diagnosis: Need for prophylactic vaccination and inoculation against influenza (Renamed from Need for immunization against influenza) End: 05-Jun-2017 21:42 [facility] Office Visit On: 28-May-2017 15:34 Encounter Reason: Follow up, Laboratory Test Results - Date: (05/23/17). Current symptoms/reason for visit include/s Follow up visit with no current symptoms. Note for Follow up to discuss laboratory test results: Pt s End: 28-May-2017 16:11 tates he feels great with the meds and no complaints., [ADDITIONAL REASON] Follow up Meds - Note for Follow up Meds: we addded back esciatalopram- he is sleeping well and not feeling foggy - thinks doing good- no side effects- tolerating crestor good no muscle ache- really likes the singulair has made big difference Encounter Diagnosis: Anxiety (300.00), Smoker, BMI 28.0-28.9,adult, Other hyperlipidemia, Liver function abnormality, Hyperthyroidism, Allergic rhinitis due to other allergic trigger [facility] Office Visit On: 09-Apr-2017 8:17 Encounter Reason: Follow up tests - Date: (03/16/17 blood work). Note for Discuss procedure results: the add meds are helping but says still has anxiety grinding teeth and also has gerd, End: 23-Apr-2017 14:34 [ADDITIONAL REASON] Physical male exam - General health: feels well with no complaints, has good energy level and is sleeping well. The patient's appetite is normal. Nutrition: appropriate balanced t. Exercises 3 days per week. Sleeps on average 6 (during the week but gets more on the weekend) hours per night. Normal bowel and bladder habits. There are no current emotional problems. Preventative m easures done by patient are screening, colonoscopy (2012, Dr Max, repeat in 10 years) and PSA (11/2016). Note for Physical exam: thinks memory about the same Encounter Diagnosis: BMI 28.0-28.9,adult, Smoker, Anxiety (300.00), Pneumococcal vaccination given, Encounter for hepatitis C virus screening test for high risk patient, Hyperthyroidism, Memory loss, Gastric reflux, [facility], Bilateral carotid artery stenosis, Other hyperlipidemia, Liver function abnormality [facility] Visit On: 11-Jan-2017 7:11 Encounter Reason: Follow up acute care visit - The patient feeling better since last seen and improving. Patient has been compliant with instructions. Current medication use: no side effects, compliant with dosing regime End: 11-Jan-2017 8:31 n and considered effective by patient. Patient sleeps 7 hours per night. Impact of disease: emotional impact-mild. Nutrition: balanced diet and supplemental vitamins. The medical issues the patient is following up for include other (ADD ). Encounter Diagnosis: Attention deficit disorder of adult, Smoker, BMI 28.0-28.9,adult, Anxiety (300.00) [facility] Visit On: 20-Dec-2016 15:50 Encounter Reason: Cold Symptoms - Symptoms include nasal congestion, runny nose, scratchy throat, hoarseness, productive cough, facial pressure, facial pain and headache. Onset was gradual 2 week(s) ago. Onset followed e End: 21-Dec-2016 20:45 xposure at home to someone with upper respiratory symptoms. The symptoms occur constantly. The patient describes this as moderate in severity and unchanged. Associated symptoms include plugged ear(s) an d fever, while associated symptoms do not include ear pain, wheezing, shortness of breath, nausea, vomiting, diarrhea or chills. The patient is not currently being treated for this problem. Note for Co ld symptoms: got better last week now getting worse again- colored drainage- and doesnt like it- some cough but not feel like in chest- cough more at night and in am- taking zyrtec and singulair -- mucinex helps but then wanes off Encounter Diagnosis: Smoker, BMI 28.0-28.9,adult, Acute upper respiratory infection [facility] Visit On: 04-Dec-2016 15:32 Encounter Reason: Follow up for chronic medical issues - The patient feels well with no complaints, has good energy level and is sleeping well. Patient has been compliant with instructions. Current medication use: no dinah End: 04-Dec-2016 22:43 e effects and compliant with dosing regimen. Patient sleeps 7 hours per night. Nutrition: balanced diet, supplemental vitamins and low salt diet. The medical issues the patient is following up for inclu de All identified problems below, high cholesterol, osteoarthritis and other (sleep disorder). Note for Follow up for chronic medical issues: he has allergies using zyrtec usin g singulair and wa nts to try she reallylikes- he has pnd- wants to try nasal spray- wearing bipap now and thinks pretty good and thinks helping energy- he thinks adderall has helped alot too- he tolerating crestor well a nd numbers good his sugar up slightly he said will work on - mood good- his memory improving- his attention better- sleeping good, [ADDITIONAL REASON] Follow up, Laboratory Test Results - Date: (11/2016). Encounter Diagnosis: BMI 28.0-28.9,adult, Smoker, Other hyperlipidemia, Allergic rhinitis due to other allergic trigger, Obstructive sleep apnea, adult, Abnormal TSH, Gastroesophageal reflux disease without esophagitis, Bilateral carotid artery stenosis [facility] Visit On: 25-Sep-2016 15:39 Encounter Reason: Follow up tests - Diagnostic tests include other (labs). Date: (08/24/16). Note for Discuss procedure results: bp is good - saw Neuro didnt think he had dementia- he has another sleep study scheduled f End: 25-Sep-2016 16:41 or next week- he feels like in a good spot hasnt felt this good in a long time- mood been pretty good and feels like remembering better- did his thyroid scan this am- no gerd and off otezla due to costEncounter Diagnosis: Smoker, BMI 28.0-28.9,adult , Abnormal C-reactive protein, Other hyperlipidemia, Attention deficit disorder of adult, Hyperthyroidism, Gastroesophageal reflux disease without esophagitis, Memory loss, Bilateral carotid artery stenosis, Encounter for screening for malignant neoplasm of prostate (Renamed from Screening for prostate cancer) [facility] Phone Encounter On: 25-Aug-2016 11:16 Encounter Diagnosis: Abnormal TSH End: 25-Aug-2016 11:21 [facility] Visit On: 24-Jul-2016 15:48 Encounter Reason: Follow up for chronic medical issues - The patient feels well with no complaints, has good energy level and is sleeping poorly. Patient has been compliant with instructions. Current medication use: no s End: 24-Jul-2016 19:28 marietta effects and compliant with dosing regimen. Patient sleeps 6 (interrupted because of c-pap mask) hours per night. Nutrition: balanced diet, supplemental vitamins and low salt diet. The medical issues the patient is following up for include All identified problems below, high cholesterol, osteoarthritis and other (sleep disorder). Note for Follow up for chronic medical issues: he feels more alert and able to complete tasks better- bp is good and ??feels memory has had some improvement- has appt with Yue in August- he feels anxiety may be better - he sleeping well mood seems better working on sleeping with cpap- , [ADDITIONAL REASON] Follow up, Laboratory Test Results - Date: (07/18/16). Encounter Diagnosis: Smoker, BMI 28.0-28.9,adult, Attention deficit disorder of adult, Anxiety (300.00), Abnormal C-reactive protein, Bilateral carotid artery stenosis, Other hyperlipidemia, Hyperthyroidism [facility] Visit On: 17-Jul-2016 15:28 Encounter Reason: Follow up acute care visit - The patient feeling better since last seen and improving. Patient has been compliant with instructions. Current medication use: no side effects and compliant with dosing reg End: 17-Jul-2016 16:11 imen. Patient sleeps 7 hours per night. Impact of disease: emotional impact-mild. Nutrition: balanced diet and supplemental vitamins. The medical issues the patient is following up for include other (AD D ). Note for Follow up acute care visit: he is feeling so much better on the Adderall, he does notice he levels off a bit around 3pm Encounter Diagnosis: Attention deficit disorder of adult, Smoker, Hyperthyroidism, Anxiety (300.00) [facility] Visit On: 26-Jun-2016 15:41 Encounter Reason: Follow up tests - Diagnostic tests include other (06/24). Note for Discuss procedure results: in general thinking more clearly and functining better though now off lexapro and feels like getting some End: 26-Jun-2016 21:24 anxiety back -his thyroid still off so needs to see endo sent message to [employer] about being on stimulant with thryoid off hyper side= bp pulse ok, [ADDITIONAL REASON] Follow up Meds - The patient feels well with minor complaints (feeling alot bett er since here last. DB stopped the lexapro and started him on Adderal.), has good energy level and is sleeping well. Patient has been compliant with instructions. Current medication use: no side effects and compliant with dosing regimen. Patient sleeps 7 hours per night. Encounter Diagnosis: Smoker, Anxiety (300.00), Hyperthyroidism, BMI 27.0-27.9,adult, Abnormal C-reactive protein, Elevated blood-pressure reading without diagnosis of hypertension , Other hyperlipidemia, Bilateral carotid artery stenosis, Memory loss [facility] Visit On: 09-Jun-2016 6:36 Encounter Diagnosis: Attention deficit disorder of adult, Anxiety (300.00) End: 09-Jun-2016 7:25 [facility] Visit On: 31-May-2016 15:18 Encounter Reason: Cold Symptoms - Symptoms include nasal congestion, runny nose, scratchy throat, hoarseness, productive cough, facial pressure, facial pain and headache. Onset was gradual 2 week(s) ago. There is no know End: 02-Jun-2016 8:10 n event that preceded symptom onset. The symptoms occur constantly. The patient describes this as moderate in severity and worsening. Associated symptoms include plugged ear(s), while associated symptom s do not include ear pain, wheezing, shortness of breath, nausea, vomiting, diarrhea, fever or chills. The patient is not currently being treated for this problem. Note for Cold symptoms: hot flashes not take temp colored sputum facial pressure- cronin Encounter Diagnosis: Acute upper respiratory infection [facility] Visit On: 15-May-2016 15:44 Encounter Reason: Follow up tests - Diagnostic tests include CT scan (brain) and other (labs). Date: (05/04/16). Note for Discuss procedure results: lesion on bottom of foot is pretty much gone, End: 15-May-2016 21:20 [ADDITIONAL REASON] Follow up Meds - The patient feels well with minor complaints (lexapro), has decreased energy level and is sleeping well. Patient has been compliant with instructions. Current medic ation use: no side effects and compliant with dosing regimen. Patient sleeps 7 hours per night. Note for Follow up Meds: Pt feels a little better since starting the lexapro. Feels more even kealed mere n before. Pt wonders if could have some Ativan for PRN anxiety.- he however feeling more tired and doesnt want to get out of bed-in am and really doesnt feel like memory issue is better as matter fact m ay be worse -- we talked about him seing neuro and he willing to see Yue who he saw before --- tolerating crestor and chol pretty good- we also talked about adjusting meds- Encounter Diagnosis: Anxiety (300.00), Other and unspecified hyperlipidemia (272.4), Need for prophylactic vaccination and inoculation against influenza (Renamed from Need for immunization against influenza), Lacunar infarction, Memory loss, Abnormal TSH [facility] Visit On: 03-Apr-2016 13:00 Encounter Reason: Physical male exam - General health: feels well with minor complaints (anxiety issues have been brought to his attention), has decreased energy level and is sleeping well. The patient's appetite is norm End: 03-Apr-2016 16:36 al. Nutrition: normal/adequate. Exercises 0 days per week. Sleeps on average 7 hours per night. Normal bowel and bladder habits. Safety measures include appropriate use of safety belts and home smoke de tectors. Current emotional problems include anxiety and depression. The patient's libido is normal. Note for Physical exam: [facility]- weight down 5 pounds and trying and bp is good- feels l joe anxiety some better but still feeling down- he feels lexapro better than celexa and he missed 3-4 days of pills so wants to remain on this and see how pans out and doesnt want to add meds yet - he i s wearing cpap and feels like mask ill fitting- so encouraged him to get refitted- also still concerns with memory and confusion, [ADDITIONAL REASON] Follow up, Laboratory Test Results - Date: (02/02/16). Encounter Diagnosis: Abnormal TSH, [facility], Memory loss, Primary dysthymia, Sleep disorder (780.50), Neoplasm of uncertain behavior of skin, Soft tissue mass, Confusion, Hypocalcemia, Other and unspecified hyperlipidemia (272.4) [facility] Visit On: 25-Feb-2016 7:21 Encounter Reason: Follow up tests - Date: (January 2016)., [ADDITIONAL REASON] Follow up for chronic medical issues - The patient feels well with minor complai End: 25-Feb-2016 8:15 nts (still having sleep issues), has good energy level and is sleeping poorly. Patient has been compliant with instructions. Current medication use: no side effects, compliant with dosing regimen and no t considered effective by patient (Celexa - I want to talk to her about that one). Patient sleeps 6 (interrupted) hours per night. Nutrition: balanced diet, supplemental vitamins and low salt diet. The medical issues the patient is following up for include All identified problems below, high cholesterol, osteoarthritis and other (sleep disorder). Note for Follow up for chronic medical issues: in gen ral other than mood feeling ok had carotids tolerating meds was off calcium so restarted Encounter Diagnosis: Sleep disorder (780.50), Psoriatic arthropathy, Anxiety (300.00), Other and unspecified hyperlipidemia (272.4), Elevated blood-pressure reading without diagnosis of hypertension, Bilateral carotid artery stenosis, Obstructive sleep apnea, adult, Hypocalcemia [facility] Office Visit On: 08-Nov-2015 16:54 Encounter Reason: Follow up for chronic medical issues - The patient feels well with minor complaints (sleeping issues yet), has good energy level and is sleeping poorly. Patient has been compliant with instructions. Cur End: 08-Nov-2015 21:01 rent medication use: no side effects, compliant with dosing regimen and considered effective by patient. Patient sleeps 7 hours per night. Nutrition: balanced diet, supplemental vitamins and low salt di et. The medical issues the patient is following up for include All identified problems below, high cholesterol, osteoarthritis and other (sleep disorder). Note for Follow up for chronic medical issues : he uses cpap and sleeps but not feelign rested when wakes up- says still anxiousbut better than used to be without celexaEncounter Diagnosis: Anxiety (300.00), Other and unspecified hyperlipidemia (272.4), Bilateral carotid artery stenosis, Need for Tdap vaccination (Renamed from Need for [id number] (Tdap) vaccine, adult/adolescent), Gastroesophageal reflux disease without esophagitis, Obstructive sleep apnea, adult [facility] Historical Summary On: 27-Jul-2015 16:42 [facility] End: 27-Jul-2015 16:43 Office Visit On: 26-Jul-2015 12:54 Encounter Reason: Upper Respiratory Infection (URI) - Symptoms include nasal congestion, runny nose, sore throat, hoarseness, productive cough, fever and chills. The symptoms occur constantly. The patient describes this as moderate in severity. End: 26-Jul-2015 14:23 Encounter Diagnosis: Thrush, Cough, persistent, Bronchitis [facility] Visit On: 19-Jul-2015 15:44 Encounter Reason: Follow up for chronic medical issues - The patient feels well with no complaints, has good energy level and is sleeping poorly. Patient has been compliant with instructions. Current medication use: no s End: 19-Jul-2015 20:38 marietta effects, compliant with dosing regimen and considered effective by patient. Patient sleeps 7 hours per night. Nutrition: balanced diet, supplemental vitamins and low salt diet. The medical issues th e patient is following up for include All identified problems below, high cholesterol, osteoarthritis and other (sleep disorder). Note for Follow up for chronic medical issues: his celexa 20s and 40s got mixed and look same so taking either 20 or 40 a day- feels like may be anxious so going to try to get 40 daily - wearing cpap- having more gerd and cough after eats and wakes with sore throat- using pepcid some help not gone- upper resp infection gone, [ADDITIONAL REASON] Follow up, Laboratory Test Results - Date: (07/14/15). Encounter Diagnosis: Need for prophylactic vaccination and inoculation against influenza (Renamed from Need for immunization against influenza), Other and unspecified hyperlipidemia (272.4), Anxiety (300.00), Gerd (530.81), Bilateral carotid artery stenosis, Obstructive sleep apnea, adult [facility] Phone Encounter On: 01-Jul-2015 13:19 Encounter Diagnosis: Cough, persistent End: 01-Jul-2015 13:23 [facility] Office Visit On: 30-Jun-2015 13:07 Encounter Reason: Upper Respiratory Infection (URI) - The last clinic visit was 2 week(s) ago. No changes in management were made at the last visit. Symptoms include nasal congestion, runny nose, sore throat, hoarseness End: 30-Jun-2015 15:33 and productive cough, while symptoms do not include wheezing. The symptoms occur constantly. The patient describes this as moderate in severity and worsening.Encounter Diagnosis: Cough, persistent, Fever and chills, Sore throat and laryngitis, SINUSITIS, ACUTE NOS (461.9), Immunocompromised, acquired, Wheeze [facility] Office Visit On: 20-Apr-2015 10:15 Encounter Reason: Cold Symptoms - Symptoms include nasal congestion, runny nose, scratchy throat, hoarseness, productive cough, facial pressure and facial pain, while symptoms do not include headache. Onset was gradual 3 End: 20-Apr-2015 10:50 week(s) ago. The symptoms occur constantly. The patient describes this as worsening. Associated symptoms include plugged ear(s), ear pain and fatigue, while associated symptoms do not include wheezing, shortness of breath, nausea, vomiting, diarrhea or fever. Current treatment includes non-prescription cold medication, oral decongestants and cough suppressants. Note for Cold symptoms: taking multip le otc meds - taking antihistamine/ decong - -making him tired sx 3 weeks with colored draiangeEncounter Diagnosis: Upper Respiratory Infection (465.9) [facility] Office Visit On: 16-Nov-2014 16:42 Encounter Reason: Follow up for chronic medical issues - The patient feels well with no complaints, has good energy level and is sleeping poorly. Patient has been compliant with instructions. Current medication use: no s End: 16-Nov-2014 21:31 marietta effects, compliant with dosing regimen and considered effective by patient. Patient sleeps 7 hours per night. Nutrition: balanced diet, supplemental vitamins and low salt diet. The medical issues th e patient is following up for include All identified problems below, high cholesterol, osteoarthritis and other (sleep disorder). Note for Follow up for chronic medical issues: mood good and weight pr tan stable and bp is good and no issues with simvistatin- feels pretty good- he had cut back protein and levels lower- so he recently adjusted, [ADDITIONAL REASON] Follow up, Laboratory Test Results - Date: (10/25/14). Encounter Diagnosis: Other and unspecified hyperlipidemia (272.4), Anxiety (300.00), Carotid stenosis (433.10), Obstructive Sleep Apnea (327.23), SCREENING FOR CANCER OF THE PROSTATE (V76.44) [facility] Office Visit On: 18-May-2014 16:52 Encounter Reason: Follow up for chronic medical issues - The patient feels well with no complaints, has good energy level and is sleeping well. Patient has been compliant with instructions. Current medication use: no dinah End: 18-May-2014 17:44 e effects, compliant with dosing regimen and considered effective by patient. Patient sleeps 7 hours per night. Nutrition: balanced diet, supplemental vitamins and low salt diet. The medical issues the patient is following up for include All identified problems below, high cholesterol, osteoarthritis and other (sleep disorder). Note for Follow up for chronic medical issues: feeling good- bp good samy ght coming down and trying and saw turner for sleep apnea- he wants him to try pepcid for stomachissue- taking more methotrexxate and helping joints -pain pretty good , [ADDITIONAL REASON] Follow up, Laboratory Test Results - Date: (05/13/14). Encounter Diagnosis: NEED FOR PROPHYLACTIC VACCINATION AND INOCULATION AGAINST INFLUENZA (V04.81), Other and unspecified hyperlipidemia (272.4), Carotid stenosis (433.10), Obstructive Sleep Apnea (327.23), Elevated Blood Pressure without diagnosis of Hypertension (796.2) [facility] Office Visit On: 17-Nov-2013 16:20 Encounter Reason: Follow up for chronic medical issues - The patient feels well with no complaints, has good energy level and is sleeping well. Patient has been compliant with instructions. Current medication use: no dinah End: 18-Nov-2013 14:17 e effects, compliant with dosing regimen and considered effective by patient. Patient sleeps 7 hours per night. Nutrition: balanced diet, supplemental vitamins and low salt diet. The medical issues the patient is following up for include All identified problems below, high cholesterol, osteoarthritis and other (sleep disorder). Note for Follow up for chronic medical issues: now on cpap and is really sleeping good and less fatigue and weight down few pounds- doing 40 mg of celexa prior to bed and anxiety controlled, [ADDITIONAL REASON] Follow up, Laboratory Test Results - Date: (11/07/13). Encounter Diagnosis: Anxiety (300.00), Obstructive Sleep Apnea (327.23), Carotid stenosis (433.10), Other and unspecified hyperlipidemia (272.4), screening [facility] Office Visit On: 05-Aug-2013 9:57 Encounter Reason: Cold Symptoms - Symptoms include nasal congestion and productive cough. Onset was 1 month(s) ago. The patient describes this as worsening. Associated symptoms include wheezing and fatigue. Current treat End: 05-Aug-2013 23:27 ment includes oral decongestants and cough suppressants. Note for Cold symptoms: taking multiple otc meds - taking antihistaminEncounter Diagnosis: Cough (786.2), Wheezing (786.07) [facility] Office Visit On: 16-Jul-2013 15:02 Encounter Reason: Follow up for chronic medical issues - The patient feels well with minor complaints (sore throat new complaint and you mentioned previously him doing a sleep study and he would like to do ??it now), has End: 16-Jul-2013 22:58 good energy level and is sleeping well. Patient has been compliant with instructions. Current medication use: no side effects, compliant with dosing regimen and considered effective by patient. Patient sleeps 7 hours per night. Nutrition: balanced diet, supplemental vitamins and low salt diet. The medical issues the patient is following up for include All identified problems below, high cholesterol, osteoarthritis and other (sleep disorder). Note for Follow up for chronic medical issues: tolerating the simvistatin ok and bp is good and snoring with apnea - had sleep study in past and vanessa surgery- he is takign 20 celexa and doing well, [ADDITIONAL REASON] Follow up, Laboratory Test Results - Date: (07/10/13). , [ADDITIONAL REASON] Sore Throat - Symptoms include sore throat, while symptoms do not include nasal congestion, myalgias or fever. The symptoms are symmetrical. There is no radiation. The patient describes the pain as burning. Onset was sudden 3 day(s) ago. Note for Sore throat: he is on augmentin f or ear issues from [facility] x1 week- sunday throat sore all the time no fever - cough gone- concerned he is snoring and apneic Encounter Diagnosis: Sleep disorder (780.50), PHARYNGITIS, ACUTE (462.), Need for prophylactic vaccination and inoculation against influenza (V04.81), Snoring (786.09), Other and unspecified hyperlipidemia (272.4), SCREENING FOR CANCER OF THE PROSTATE (V76.44), Anxiety (300.00), Carotid stenosis (433.10) [facility] Office Visit On: 24-Feb-2013 17:35 Encounter Reason: Follow up for chronic medical issues - The patient feels well with no complaints, has good energy level and is sleeping well. Patient has been compliant with instructions. Current medication use: no dinah End: 24-Feb-2013 18:25 e effects, compliant with dosing regimen and considered effective by patient. Patient sleeps 7 hours per night. Nutrition: balanced diet, supplemental vitamins and low salt diet. The medical issues the patient is following up for include All identified problems below, high cholesterol, osteoarthritis and other (sleep disorder). Note for Follow up for chronic medical issues: weight down 4 pounds and bp is good - down to 20 mg qod on celexa and mood good- his trigs up becuase ate pizza two days in row prior and his hdl low becuase alot of work busy- not exercising- - he will try to do this- - he is takign 20mg alternating with 40 of simvistatin and tolerating that well, [ADDITIONAL REASON] Follow up, Laboratory Test Results - Date: (02/12/13). Encounter Diagnosis: Other and unspecified hyperlipidemia (272.4), Carotid stenosis (433.10), Anxiety (300.00), Sleep disorder (780.50), Epicondylitis, lateral (726.32), SCREENING FOR CANCER OF THE PROSTATE (V76.44) [facility] Office Visit On: 21-Oct-2012 14:53 Encounter Reason: Follow up for chronic medical issues - The patient feels well with minor complaints (muscle pain with increase of statin and wants to talk about weaning off the celexa), has good energy level and is sle End: 21-Oct-2012 15:31 eping well. Patient has been compliant with instructions. Current medication use: experiencing side effects (muscle pain with increase of statin), compliant with dosing regimen and considered effective by patient. Patient sleeps 6 (broken up) hours per night. Nutrition: balanced diet, supplemental vitamins and low salt diet. The medical issues the patient is following up for include All identified pro blems below, high cholesterol, osteoarthritis and other (sleep disorder). Note for Follow up for chronic medical issues: mood good and sleeping well-- sleeping all night and no longer an issue - bp is good- chol not much better and he says its probably not the medd- he has been eating really badly and not exercising, [ADDITIONAL REASON] Follow up, Laboratory Test Results - Date: (10/17/12). Encounter Diagnosis: Other and unspecified hyperlipidemia (272.4), Anxiety (300.00), Carotid stenosis (433.10), Elevated Blood Pressure without diagnosis of Hypertension (796.2), Sleep disorder (780.50), Hypocalcemia (275.41) [facility] Office Visit On: 29-Jul-2012 16:57 Encounter Reason: Follow up for chronic medical issues - The patient feels well with minor complaints (look at right index finger), has good energy level and is sleeping poorly (has troubles staying asleep). Patient has End: 29-Jul-2012 21:17 been compliant with instructions. Current medication use: no side effects, compliant with dosing regimen and considered effective by patient. Patient sleeps 6 (broken up) hours per night. Nutrition: bal anced diet, supplemental vitamins and low salt diet. The medical issues the patient is following up for include All identified problems below, high cholesterol, osteoarthritis and other (sleep disorder) . Note for Follow up for chronic medical issues: feels well anxiety controlled- - tolerating simvistatin but gaining weight not ezercising and not watching diet , [ADDITIONAL REASON] Follow up, Laboratory Test Results - Date: (07/24/12). Encounter Diagnosis: Anxiety (300.00), Hypocalcemia (275.41), Other and unspecified hyperlipidemia (272.4), Carotid stenosis (433.10) [facility] Office Visit On: 24-May-2012 12:00 Encounter Reason: Injections - The medication the patient is here to receive is other (Flu ).Encounter Diagnosis: Need for prophylactic vaccination and inoculation against influenza (V04.81) End: 24-May-2012 12:09 [facility] Office Visit On: 25-Mar-2012 16:12 Encounter Reason: Follow up for chronic medical issues - The patient feels well with minor complaints (fatigue all the time from not sleeping well), has decreased energy level and is sleeping poorly (has troubles staying End: 25-Mar-2012 18:26 asleep). Patient has been compliant with instructions. Current medication use: no side effects, compliant with dosing regimen and considered effective by patient. Patient sleeps 6 (broken up) hours per night. Nutrition: balanced diet, supplemental vitamins and low salt diet. The medical issues the patient is following up for include All identified problems below, high cholesterol, osteoarthritis and other (sleep disorder). weight : (187). Note for Follow up for chronic medical issues: he is sleeping 6-7 hours of sleep sometimes 8- no apnea- he wakes alot- he thinks when he wakes up- , [ADDITIONAL REASON] Follow up, Laboratory Test Results - Date: (03/16/12). Encounter Diagnosis: Other and unspecified hyperlipidemia (272.4), Anxiety (300.00), Elevated Blood Pressure without diagnosis of Hypertension (796.2), Carotid stenosis (433.10), Sleep disorder (780.50) [facility] Office Visit On: 30-Oct-2011 16:19 Encounter Reason: Follow up for chronic medical issues - The patient feels well with minor complaints (left pain), has decreased energy level (tired from time change) and is sleeping well. Patient has been compliant with End: 30-Oct-2011 21:53 instructions. Current medication use: no side effects, compliant with dosing regimen and considered effective by patient. Patient sleeps 6 hours per night. Nutrition: balanced diet, supplemental vitami ns and low salt diet. The medical issues the patient is following up for include All identified problems below, high cholesterol, osteoarthritis and other (sleep disorder). weight : (180). Note for Fol low up for chronic medical issues: he feels the celexa is working mood better-and also focusing better and multitasking better - mood more even- sleeping ok and feels improved- no side effects from the medicine- he usnt having issues with chol meds- but admits to not doign well with diet so going to try harder- , [ADDITIONAL REASON] Follow up, Laboratory Test Results - Date: (10/21/11). , [ADDITIONAL REASON] Elbow Problem - Symptoms include decreased range of motion, instability and elbow pain, while symptoms do not include swelling, redness, warmth or stiffness. Symptoms are located in the left elbow. The pain radiates to the left forearm and left shoulder (bicep). Onset was gradual 5 month(s) ago. The symptoms occur constantly. The patient describes symptoms as moderate in severity (to severe) and unchanged. Symptoms are exacerbated by lifting. Associated symptoms do not include numbness in the hand, weakness in the hand, paresthesias or fever. Note for Elbow Problem: hard to pi ck up grandkids- doing alot of wood cutting this past year- thinks before simvistatin Encounter Diagnosis: Other and unspecified hyperlipidemia (272.4), Anxiety (300.00), Carotid stenosis (433.10), Elevated Blood Pressure without diagnosis of Hypertension (796.2), Epicondylitis, lateral (726.32), SCREENING FOR CANCER OF THE PROSTATE (V76.44) [facility] Office Visit On: 02-Aug-2011 16:09 Encounter Reason: Follow up, Laboratory Test Results - Date: (07/22/11). Current symptoms/reason for visit include/s Follow up visit with no current symptoms. Note for Follow up, Laboratory Test Results: mood better co End: 03-Aug-2011 20:35 ncentration better - still waking up once in middle of night- tolerating meds- doesnt want sleep aide- Encounter Diagnosis: Other and unspecified hyperlipidemia (272.4), Carotid stenosis (433.10), Anxiety (300.00) [facility] Office Visit On: 06-Jun-2011 15:37 Encounter Reason: Follow up Meds - The patient feels well with minor complaints (seen improvement in his anxiety for the 1st week but now feels that its not helping or cant seem to tell that he's even taking it. ??Was sl End: 07-Jun-2011 8:16 eeping better at first but now back to waking up throughout the night.), has good energy level and is sleeping well. Patient has been compliant with instructions. Current medication use: no side effects and compliant with dosing regimen. Patient sleeps 6 hours per night. Note for Follow up Meds: he is calmer on celexa- and was sleeping better- takign a full dose - and effects waning- likes enough to go to higher dose but doing better without side effectEncounter Diagnosis: Need for prophylactic vaccination and inoculation against influenza (V04.81), Carotid stenosis (433.10), Anxiety (300.00), Other and unspecified hyperlipidemia (272.4), SCREENING FOR CANCER OF THE PROSTATE (V76.44) [facility] Office Visit On: 25-Apr-2011 15:37 Encounter Reason: Follow up for chronic medical issues - The patient feels well with no complaints, has decreased energy level and is sleeping poorly. Patient has been compliant with instructions. Current medication use: End: 25-Apr-2011 21:49 no side effects, compliant with dosing regimen and considered effective by patient. Patient sleeps 6 hours per night. Impact of disease: emotional impact-mild. Nutrition: balanced diet, supplemental vi tamins and low salt diet. The medical issues the patient is following up for include All identified problems below, high cholesterol, osteoarthritis and other (sleep disorder). weight : (home- 175-180). Note for Follow up for chronic medical issues: methotrexate and mobic have really hepled his jints- had little flare recently-- was diagnosed with opthalmic migriane by eye doc after had blob in his vision then develped a migraine- he didnt like the buspirone- made him wired and uriante at night -so didnt take- has trouble concentrating and focusing and down some too- likein a fogEncounter Diagnosis: Migraine (346.80), vision change, Psoriatic arthropathy (696.0), Other and unspecified hyperlipidemia (272.4), Anxiety (300.00) [facility] Office Visit On: 18-Oct-2010 15:36 Encounter Reason: Follow up for chronic medical issues - The patient feels well with minor complaints (ongoing sleep issues- wakes up alot at hs, tosses and turns. Mind races), has good energy level and is sleeping poorl End: 18-Oct-2010 22:36 y. Patient has been compliant with instructions. Current medication use: no side effects and compliant with dosing regimen. Patient sleeps 6 hours per night. Nutrition: balanced diet, supplemental vitam ins and low salt diet. The medical issues the patient is following up for include All identified problems below, high cholesterol, osteoarthritis and other (sleep disorder). weight : (home- 170). Note f or Follow up for chronic medical issues: lost 25 pounds- and trying -- working hard on it- cut out alot of crap- feels better- saw Aaron and said has psoriatic arthritis- and on methotrexate and t hinks helps- been dealing with sx for 10 years- he wakes up and cant shut mind off - freq weakenings throughout the night- he worries about things frequently, [ADDITIONAL REASON] Follow up, Laboratory Test Results - Date: (08/26/10). Encounter Diagnosis: Other and unspecified hyperlipidemia (272.4), Psoriatic arthropathy (696.0), SCREENING FOR CANCER OF THE PROSTATE (V76.44), Anxiety (300.00) [facility] Office Visit On: 09-Mar-2010 9:26 Encounter Reason: Follow up, Laboratory Test Results - Date: (02/26/10). Encounter Diagnosis: Other and unspecified hyperlipidemia (272.4), Abnormal blood chemistry (790.6), Osteoarthritis (715.96) End: 09-Mar-2010 10:08 [facility] Office Visit On: 16-Feb-2010 15:19 Encounter Reason: new patient male physicial - Last seen more than 1 year ago. General health: feels well with no complaints ,has good energy level and is sleeping well (sometimes not- has nights where he tosses and turn End: 16-Feb-2010 22:51 s). The patient's appetite is normal. Nutrition: appropriate balanced diet. Exercises 0 days per week. Sleeps on average 6 hours per night. Normal bowel and bladder habits. Safety measures include appro priate use of safety belts and home smoke detectors. Current emotional problems include sleep disturbances (restlessness sometimes). The patient's libido is normal. Preventative measures done by patient are screening, visual acuity (12/2009) and PSA (over year ago- 2 years??). Note for new patient male physicial: he tries to do physical yearly- but hasnt had blood work for 2 years--- has osteoarthrit is in knee- takes naproxen for this on occasion- had some type of inflammatory issue with eye- couldnt remeber if uveitis or iritis- but taking pred forte and got betterEncounter Diagnosis: Osteoarthritis- Generalized or Localized, Involving Unspecified Site (715.90), Other and unspecified hyperlipidemia (272.4), SCREENING FOR CANCER OF THE PROSTATE (V76.44), Sleep disorder (780.50) [facility]ayers [facility]OR[facility] ELIZALDE; a guarantor
--- OUTSIDE RECORDS SUMMARY | 2018-10-30 18:35 | XMS RPT_ITS | Continuity of Care Document ---
:1960 Author Organization [facility] Address [address] [facility] [address] [place] [address] Phone Care Team Providers Name Role Phone Ana Cai DO Unavailable Lupillo Taylor Unavailable Sin Gupta MD Unavailable Dr. Lowell Corbin Unavailable Terrence Turner Unavailable Dante Cook Unavailable Unavailable Terrence HICKEY, Ingrid Lee Unavailable Millie Christine Unavailable Unavailable Amaris Becerra Unavailable Unavailable Unavailable Unavailable Problems Name Dates [...] now that being treated.CS , drug screen -18 Status: Active Bilateral carotid artery stenosis (I65.23, 433.10) Comments: chronic stable-continue present regimen Status: Active BMI 30.0-30.9,adult (Z68.30, V85.30) Status: [...] abnormality (K76.89, 573.9) Comments: better Status: Active Memory loss (R41.3, 780.93) Status: [...] meds Status: Active Primary dysthymia (F34.1, 300.4) Comments: he wants to continue on lexapro but may add cymbalta Status: Active Psoriatic arthropathy (L40.50, 696.0) Status: Active Smoker (F17.200, 305.1) Comments: encourage cessation Status: Active Soft tissue mass (M79.9, 729.90) Comments: take nsaids and ic if not better call and send to director medical science Status: Active Unspecified Diagnosis Status: Active Wheezing [...] 0 days Quantity: 180 {Capsule} Refills: 3 Ordered:09-Apr-2017 Fast DO, Ana AFast DO, Ana A Start : 09-Apr-2017 Active DULoxetine HCl 20 MG Oral Capsule Delayed Release Particles 2 (two) Capsule DR Part qd for 0 days Quantity: 180 {Capsule} Refills: 3 Ordered:09-Apr-2017 Fast DO, Ana AFast DO, Ana A Start : 09-Apr-2017 Active Escitalopram Oxalate 20 MG Oral Tablet 1 (one) Tablet qhs for 90 days Quantity: 90 {Tablet} Refills: 3 Ordered:03-Sep-2017 Fast DO, Ana AFast DO, Ana A Start : 03-Sep-2017 Active FOLIC ACID, 1MG (Oral Tablet) 1 tab qd (1 MG) Active LORazepam 0.5 MG Oral Tablet 1 (one) Tablet qd prn for 30 days Quantity: 30 {Tablet} Refills: 0 Ordered:01-Jul-2018 Ana Cai DO, DO, Debra A Start : 01-Jul-2018 Active Comments:thirty Methotrexate 2.5 MG Oral Tablet 6 once weekly (2.5 MG) Active Comments:vashti Montelukast Sodium 10 MG Oral Tablet 1 (one) Tablet qd in evening for 90 days Quantity: 90 {Tablet} Refills: 3 Ordered:29-Jun-2017 Ana Cai DO, DO, Ana A Start : 29-Jun-2017 Active MULTIVITAMIN [...] days Quantity: 1 {Inhaler} Refills: 1 Ordered:24-Dec-2017 Ana Cai DO, DO, Debra A Start : 24-Dec-2017 Active VITAMIN C, 500MG (Oral Tablet) 1 tab qd during winter months for 0 days Refills: 0 Ordered:16-Nov-2014 Manchak, ChelseaActive AMOXICILLIN-POT CLAVULANATE, 875-125MG (Oral Tablet) 1 (one) Tablet Tablet bid for 0 days Quantity: 20 {Tablet} Refills: 0 Ordered:26-Jul-2015 Long Rae MESSER L Start : 20-Apr-2015 End : 26-Jul-2015 [...] days Quantity: 20 {Tablet} Refills: 0 Ordered:03-Apr-2018 Mynor ZAMAN, Ana AFtray DO, Ana A Start : 24-Dec-2017 End : 03-Apr-2018 Inactive CLOTRIMAZOLE, 10MG (Mouth/Throat Riya) 1 (one) Riya 5x daily for 10 days Quantity: 50 {Riya} Refills: 0 Ordered:26-Jul-2015 Darcytroy EMMANUELHyacinth Start : 26-Jul-2015 End : 05-Aug-2015 Inactive PredniSONE 10 MG Oral Tablet 3 (three) [...] days Quantity: 90 {Tablet} Refills: 0 Ordered:25-Feb-2016 Mynor ZAMAN Ana DANJung feliz DOa A Start : 25-Feb-2016 End : 25-Feb-2016 [...] days Quantity: 60 {Tablet_ER_24HR} Refills: 3 Ordered:16-Feb-2010 Mast Andra BARAJAS Start : 16-Feb-2010 End : 25-Apr-2011 Discontinued [...] days Quantity: 90 {Tablet} Refills: 0 Ordered:15-May-2016 Fast DO, Ana AFast DO, Ana A Start : 15-May-2016 End : 15-May-2016 Discontinued Simvastatin 20 MG Oral Tablet 1 (one) Tablet daily for 0 days Quantity: 180 {Tablet} Refills: 3 Ordered:15-May-2016 Fast DO, Ana [...] (E83.51, 275.41) Status: Inactive as of 09-Jun-2016 [facility] Status: Resolved as of 16-Jul-2017 [facility] Status: Inactive as of [...] for Tdap vaccination (Renamed from Need for nabmowwgpq-cuiyiif-zxxqwfpta (Tdap) vaccine, adult/adolescent) (Z23, V06.1) Status: Inactive [...] Procedure Dates Details TDAP VACCINE >7 IM (78496) Date: 08-Nov-2015 Completed 08-Nov-2015 nasal septal deviation urgery Completed Tonsillectomy Completed uvuloplasty/palate surgery Completed Date Value Details 23-Oct-2016 Sleep Study Report Result: Comments: See Note; NOTES: [facility] [address] [place] [address] Polysomnography with NCPAP MR#: [id number] Acct: [id number] Name: ORACIO ELIZALDE ep #: [id number] : 1960 56 From: Terrence Turner MD [...] version). Please note that a reference to [facility] AHI in this report is consistent with the current Hypopnea definition according to Medicare Criteria and an AAS AHI reference is consistent with the current Hypopnea definition according to the AASM criteria and is recognized by [facility] as the RDI. PROCEDURE: The study was attended continuously by a nuclear technician. Monitored parameters included left and right EOG, [...] calculated body mass index of 28, an Phoenix Sleepiness Scale score of 11/24. The patient [...] C. MASK USED DURING TITRATION: [employer] Simplus full face mask, size medium with [...] sleepy. INTERPRETING PHYSICIAN: Era Turner Jr., M.D. William Novak, MD T: NTS JOB: [id number] CC: Terrence Turner MD 42 [id number] <Electronically signed by Terrence Turner MD&#62 ; Date Terrence Turner MD Co-signature (if applicable) Date Signed -Sep-2016 Thyroid Uptake Single or Mult Result: Comments: See Note; NOTES: [facility] Imaging Services [address] [place] [address] Verdana 4d Thyroid Uptake Single or Mult MR#: [id number] Acct: [id number] Name: Javon ELIZALDE Rep #: [id number] : 1960 M 56 From: Sin Brantley DO PCP: Ana Cai DO Status: REG CLI Study: Thyroid Uptake Single or Mult Date of Exam: 09/25/16 Exam# [id number] Ordering Dr: Pearce DO CLINICAL: 56-year-old male [...] secondary to the presence of isthmus hypertrophy. (Layla et al, J Nucl Med 32: 1455, 1990) . 3. No hypofunctioning-cold nodules are identified. Electronically Signed: Sin Brantley DO at 23:21 EST Tel , Service support [phone], CC: Ana Cai DO Focuser: Signed 04-Apr-2016 Brain/Head W/WO Contrast Result: Comments: See Note; NOTES: [facility] Imaging Services [address] [place] [address] Verda 4d Brain/Head W/WO Contrast MR#: [id number] Acct: [id number] Name: BECKIE ELIZALDE Javon Sage Rep #: [id number] : 1960 M 56 From: Cuauhtemoc Vo MD PCP: Ana Cai DO Status: REG CLI Study: Brain/Head W/WO Contrast Date of Exam: 04/04/16 Exam# [id number] Ordering Dr: Ana Cai DO STUDY: CT [...] Cuauhtemoc Vo MD at 8:08 EDT Tel [phone], Service support [phone], CC: Ana Cai DO Focuser: Signed 16-Aug-2014 Emergency Department Summary Result: Comments: See Note; NOTES: [facility] Medical Records Department [address] [place] [address] Emergency Department Summary MR#: [id number] Acct: [id number] Name: ORACIO LOPEZ Rep #: [id number] : 1960 54 From: Donn Jacobo MD [...] given a prescription for na proxen and Stephens. He will be discharged to follow up with Dr. Pierce. DISPOSITION: Discharge. DIAGNOSES: 1. Right knee effusion: 2. Inflammatory process of right knee. Donn Jacobo MD T: NTS JOB: [id number] 08/16/14 0852 <Electronically signed by Donn Jacobo MD> Date Donn Jacobo MD CC: Ana Cai DO Date Dictated: 2208 Date Transcribed: 08/07/142208 Focuser: Signed 07-Aug-2014 Discharge Instruction Result: Comments: See Note; NOTES: [facility] Medical Records Department [address] [place] [address] Discharge Instruction 08/07/142205 MR#: [id number] Acct: [id number] Name: ORACIO ELIZALDE Rep #: [id number] : 1960 54 From: Donn Jacobo MD PCP: Ana Cai DO Status: REG ER ED Disposition - Plan for ED Patient: Disposition: Home Chief Complaint: Lower Ext remity Injury Discharge Problem: Effusion of left knee, 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 Call [facility] ( [phone]) or report to the closest Emergency Room. Call 911 if necessary. 08/07/142207 <Electronically signed by Donn Jacobo MD> Date Donn Jacobo MD Cosigner Signature (If Indicated): Date CC: Ana Cai DO 15-Jul-2014 Carotid Duplex Ultrasound Result: Comments: See Note; NOTES: [facility] Cardiovascular Services [address] [place] [address] Carotid Duplex Ultrasound 07/10/14 0909 MR#: [id number] Acct: [id number] Dudley e: ORACIO ELIZALDE Rep #: [id number] : 1960 54 From: Robin Fabian MD Attending Dr: Ana Cai DO Status: REG CLI Ordering Dr: Ana Cai DO Date: 07/10/14 Location: [facility] Sex: Rosa Sepulveda ed: Rt. Velocities/BP Lt. Velocities/BP Prox CCA [...] the left vertebral artery. Procedure Carotid Duplex 62655. The exam was diagnostic. Exam performed in department. Interp retation Summary Mild (<50%) stenosis right extracranial internal carotid. Mild (<50%) stenosis left extracranial internal carotid. Flow within the vertebral arteries is antegrade michelle aterally. Ordering Physician: Ana Cai Referring Physician: Lata Valle Performed By: SAMUEL Juan 07/15/14823 Date Robin Fabian MD CC: Ana Cai DO Da te Dictated: 07/10/14908 Date Transcribed: 07/15/14823 Focuser: Signed 15-Jul-2014 Carotid Duplex Ultrasound Result: Comments: See Note; NOTES: [facility] Cardiovascular Services [address] [facility] [place] [address] Carotid Duplex Ultrasound 07/10/14908 MR#: [id number] Acct: [id number] Dudley e: ORACIO ELIZALDE Rep #: [id number] : 1960 54 From: Robin Fabian MD Attending Dr: Ana Cai DO Status: REG CLI Ordering Dr: Ana Cai DO Date: 07/10/14 Location: [facility] Sex: M C Admitt ed: Rt. [...] the left vertebral artery. Procedure Carotid Duplex 74321. The exam was diagnostic. Exam performed in department. Interp retation Summary Mild (<50%) stenosis right extracranial internal carotid. Mild (<50%) stenosis left extracranial internal carotid. Flow within the vertebral arteries is antegrade michelle aterally. Ordering Physician: Ana Cai Referring Physician: Lata Valle Performed By: SAMUEL Juan 07/15/14823 Date Robin Fabian MD CC: Ana Hinton te Dictated: 07/10/14908 Date Transcribed: 07/15/14823 Focuser: Signed 26-Jan-2014 Knee 4 or More Views Result: Comments: See Note; NOTES: [facility] Imaging Services [address] [place] [address] Radiology Report MR#: [id number] Acct: [id number] Name: ORACIO ELIZALDE Rep #: [id number] : 1960 M 53 From: Cuauhtemoc Vo MD PCP: Ana Cai DO Status: REG CLI Study: Knee 4 or More Views Date of Exam: 01/26/14 Exam# [id number] Ordering Dr: Lata Valle MD ERIC DY: [...] Cuauhtemoc Vo MD at 13:17 EDT Tel [phone], Service support [phone], RAD/Knee 4 or More Views IM PRESSION: Degenerative arthrosis. Mild synovial thickening. Electronically Signed: Cuauhtemoc Vo MD at 13:17 EDT Tel [phone], Service support [phone], CC: Ana Cai DO; Lata Valle MD Focuser: Signed 26-Jan-2014 Knee 4 or More Views Result: Comments: See Note; NOTES: [facility] Imaging Services [address] [place] [address] Radiology Report MR#: [id number] Acct: [id number] Name: ORACIO ELIZALDE Rep #: [id number] : 1960 53 From: Cuauhtemoc Vo MD PCP: Ana Cai DO Status: REG CLI Study: Knee 4 or More Views Date of Exam: 01/26/14 Exam# [id number] Ordering Dr: Lata Valle MD [facility] DY: X-RAY - LEFT KNEE REASON FOR [...] Signed: Rosa Ambriz at 13:17 EDT Tel [phone], Service support [phone], RAD/Knee 4 or More Views IMPRESSION: Minimal synovial thickening. Electronically Sig la: Cuauhtemoc Vo MD at 13:17 EDT Tel [phone], Service support [phone], CC: Ana Cai DO; Lata Valle MD Focuser: Signed 29-Aug-2013 Sleep Study Report Result: Comments: See Note; NOTES: [facility] [address] [place] [address] Polysomnography with NCPAP MR#: [id number] Acct: [id number] Name: ANDRA ELIZALDE DEEPTI Sage Rep #: [id number] : 1960 53 From: Westley Porter MD PCP: Ana Cai DO Status: REG CLI Ordering DrShahla: Aan Cai DO Date: 08/21/13 Sex: M C SLEEP HISTORY: This is a CPAP titratio n study performed on this 53-year-old male with a body mass index of 28 and an Phoenix Sleepiness Scale score of 12. He has [...] version). Please note that a reference to [facility] AHI in this report is consistent with the current Hypopnea definition according to Medicare Criteria and an AASM AHI refere nce is consistent with the current Hypopnea definition according to the AASM criteria. PROCEDURE: The study was attended continuously by a nuclear technician. Monitored parameters included left and r ight [...] MD Co- signature (if applicable) Date Signed -Jul-2013 Sleep Study Report Result: Comments: See Note; NOTES: [facility] [address] [facility] [place] [address] Polysomnography MR#: [id number] Acct: [id number] Name: ORACIO ELIZALDE Rep #: [id number] : 1960 53 From: Terrence Turner MD PCP: Ana Cai DO Status: REG CLI Ordering Dr.: Ana Cai DO Date: 08/01/13 Sex: M C REFERRING PHYSICIAN: Dr. Cai. SLEEP HISTORY: The patient is a 53-year-old gentleman with a calculated body mass index of 28 and an Phoenix Sleepiness Scale score of 12/24. He has [...] version). Please note that a reference to [facility] AHI in this report is consistent with the current Hy popnea definition according to Medicare Criteria and an AASM AHI reference is consistent with the current Hypopnea definition according to the AASM criteria. PROCEDURE: The study was attended kai nuously by a nuclear technician. Monitored parameters included left and right EOG, [...] 1234 <Electronically signed by Terrence Turner MD> Date Terrence Turner MD Co-signatu re (if applicable) Date Signed 05-Aug-2013 Chest PA and Lateral Result: Comments: See Note; NOTES: [facility] Imaging Services [address] [place] [address] Radiology Report MR#: [id number] Acct: [id number] Name: ORACIO ELIZALDE Rep #: [id number] : 1960 M 53 From: Wesley Ramirez MD PCP: Ana Cai DO Status: REG CLI Study: Chest PA and Lateral Date of Exam: 08/05/13 Exam# [id number] Ordering Dr: Ana Cai DO STUDY: X-RA [...] at 13:55 EST , Service sup port [phone], CC: Ana Cai DO Focuser: Signed Immunization Name Dates Details Tdap (7 [...] smoker Vital Signs Date Test Result Details 84-Rbw-249985:19 Temperature 97.1 f Comments: Method: Temporal Pulse [...] kg/m2 Body Surface Area Calculated 2.08 m2 07-Yiw-349042:38 Temperature 97.4 f Comments: Method: Temporal Pulse [...] Value Details :32 CBC W/Diff, Automated Comments: [facility] [address] [place], [place], [address] Absolute Lymph 1.42 {X10_3/ul} (Normal) Range: 0.83-4.51 [...] 4.6-6.2 WBC 6.9 K/mm3 (Normal) Range: 4.4-11.0 :32 Comprehensive Metabolic Profil Comments: [facility] [address] [place], [place], [address] GAP 7 (Normal) Range: 5-15 CO2 28.0 [...] A.D.A. criteria.Please note revised GLUCOSE reference range ygrgeqrfh47/02/2018. 11-Jma-630668:58 CBC W/Diff, Automated Comments: [facility] [address] [place], [place], [address] Absolute Lymph 1.59 {X10_3/ul} (Normal) Range: 0.83-4.51 [...] 4.6-6.2 WBC 5.9 K/mm3 (Normal) Range: 4.4-11.0 82-Yex-298964:58 Comprehensive Metabolic Profil Comments: [facility] [address], [place], [address] GAP 9 (Normal) Range: 5-15 CO2 30.0 [...] Comments: Please note revised GLUCOSE reference range ouitcwojl30/02/2018. 97-Zvw-43713:24 CBC with auto diff Comments: PATIENT NOT FASTINGPERFORMED BY: [facility] [id number] Information: NURSE DRAW (85741) Immature Grans (Abs) 0.0 {x10E3/uL} (Normal) Range: [...] 4.14-5.80 WBC 6.4 {x10E3/uL} (Normal) Range: 3.4-10.8 :24 METABOLIC PANEL, COMPREHENSIVE Comments: PATIENT NOT FASTINGPERFORMED BY: [facility] Xtvhmq7772 [facility] [id number] ([id number]) ALT (SGPT) 27 [iU]/L (Normal) Range: 0-44 [...] Range: 65-99 :17 CBC W/Diff, Automated Comments: [facility] [address] [place], [place], [address] Absolute Lymph 1.70 {X10_3/ul} (Normal) Range: 0.83-4.51 [...] 4.6-6.2 WBC 5.8 K/mm3 (Normal) Range: 4.4-11.0 65-Shd-92730:17 Comprehensive Metabolic Profil Comments: [facility] [address] [place], [address] GAP 5 (Normal) Range: 5-15 CO2 29.0 [...] A.D.A. criteria.Please note revised GLUCOSE reference range csqxwhfuz26/02/2018. 17-Dec-20176:22 CBC W/Diff, Automated Comments: [facility] [address] [place], [address] ; review at 12/24 Absolute Lymph 1.33 [...] Range: 4.4-11.0 17-Dec-20176:22 Comprehensive Metabolic Profil Comments: [facility] [address] [place], [place], [address] GAP 7 (Normal) Range: 5-15 CO2 29.0 [...] Comments: Please note revised GLUCOSE reference range oiwiroumv88/02/2018. 17-Dec-20176:22 Lipid Profile Comments: [facility] [address] [place], [place], [address] VLDL 23 mg/dL (Normal) Range: 5-40 LDL [...] Risk 17-Dec-20176:22 PSA,Total - Annual Screen Comments: [facility] [address] [place], [place], [address] PSA,TOT SCREEN 0.85 ng/mL (Normal) Range: 0.00-4.00 Comments: This test was performed using the TPSA assay method for thePhantomAlert.com. chemistry system. Values obtained with differentassay methods cannot be used interchangably.When changing PSA assays in the course of monitoring apatient, additional sequential testing should be carriedout to confirm baseline values. 17-Dec-20176:22 Thyroid Stim Hormone (TSH) Comments: [facility] [address] [place], [place], [address] TSH 1.13 {uIU/mL} (Normal) Range: 0.358-3.74 66-Yso-082815:56 CBC W/Diff, Automated Comments: [facility] [address] [place], [address] Absolute Lymph 1.48 {X10_3/ul} (Normal) Range: 0.83-4.51 [...] 4.6-6.2 WBC 6.3 K/mm3 (Normal) Range: 4.4-11.0 00-Dvd-926319:56 Comprehensive Metabolic Profil Comments: [facility] [address] [place], [address] GAP 6 (Normal) Range: 5-15 CO2 29.0 mmol/L (Normal) Range: 21.0-32.0 CL 107 mmol/L (Normal) Range: 98-107 K 4.0 mmol/L (Normal) Range: 3.5-5.1 NA 142 mmol/L (Normal) Range: 136-145 T BILI 0.70 mg/dL (Normal) Range: 0.20-1.00 ALT 42 U/L (Normal) Range: 16-61 Comments: Please note revised ALT reference range xplspvevp07/28/2018. ALK P 59 U/L (Normal) Range: 45-117 [...] Comments: Please note revised GLUCOSE reference range yxrjofgmo06/02/2018. 97-Ejr-89610:18 CBC W/Diff, Automated Comments: [facility] [address] [place], [address] ; review 09/03 Absolute Lymph 1.62 {X10_3/ul} [...] 4.6-6.2 WBC 6.0 K/mm3 (Normal) Range: 4.4-11.0 10-Wqh-03456:18 Comprehensive Metabolic Profil Comments: [facility] [address] [place], [place], [address] GAP 6 (Normal) Range: 5-15 CO2 31.0 [...] 7-18 GLU 81 mg/dL (Normal) Range: 70-110 21-Xir-78259:18 Lipid Profile Comments: [facility] [address] [place], [place], [address] VLDL 24 mg/dL (Normal) Range: 5-40 LDL [...] 200-240 mg/dL Borderline >240 mg/dL High Risk 66-Yja-85852:18 Thyroid Stim Hormone (TSH) Comments: [facility] [address] [place], [place], [address] TSH 0.81 {uIU/mL} (Normal) Range: 0.358-3.74 90-Khq-573992:10 CBC W/Diff, Automated Comments: [facility] [address] [place], [place], [address] Absolute Lymph 1.62 {X10_3/ul} (Normal) Range: 0.83-4.51 [...] 4.6-6.2 WBC 7.0 K/mm3 (Normal) Range: 4.4-11.0 46-Nbg-073215:10 Comprehensive Metabolic Profil Comments: [facility] [address] [place], [address] GAP 7 (Normal) Range: 5-15 CO2 30.0 [...] 7-18 GLU 90 mg/dL (Normal) Range: 70-110 06-Ook-52342:09 CBC W/Diff, Automated Comments: [facility] [address] [place], [place], [address] ; will review at upcoming appt Absolute [...] 4.6-6.2 WBC 6.0 K/mm3 (Normal) Range: 4.4-11.0 55-Awo-46476:09 Comprehensive Metabolic Profil Comments: [facility] [address] [place], [place], [address] GAP 7 (Normal) Range: 5-15 CO2 32.0 [...] 7-18 GLU 89 mg/dL (Normal) Range: 70-110 :09 Hepatitis C Antibodies Comments: [facility] (refer to report for specific site)refer to report for address and phone number; will review on 05/28 HEP C AB <0.1 {s/co_ratio} (Normal) Range: 0.0-0.9 Comments: Negative: < 0.8 Indeterminate: 0.8 - 0.9 Positive: > 0.9 The CDC recommends that a positive HCV antibody result be followed up with a HCV Nucleic Acid Amplification test (940449).Performed at: [address] [id number] Director: Jose Francisco Coates PhD, Phone: [phone] 94-Ije-17921:09 Lipid Profile Comments: [facility] [address] [facility] [place], [place], [address] VLDL 20 mg/dL (Normal) Range: 5-40 LDL [...] 200-240 mg/dL Borderline >240 mg/dL High Risk 82-Oev-75126:09 Thyroid Stim Hormone (TSH) Comments: [facility] [address] [place], [address] TSH 0.88 {uIU/mL} (Normal) Range: 0.358-3.74 :14 CBC W/Diff, Automated Comments: [facility] [address] [place], [address] Absolute Lymph 1.50 {X10_3/ul} (Normal) [...] 4.6-6.2 WBC 7.8 K/mm3 (Normal) Range: 4.4-11.0 :14 Comprehensive Metabolic Profil Comments: [facility] [address] [place], [place], [address] GAP 7 (Normal) Range: 5-15 CO2 28.0 [...] diff Comments: PATIENT NOT FASTINGPERFORMED BY: [facility] Otbsdc6096 [facility] [id number] Information: NURSE DRAW ([id number]) Immature Grans (Abs) 0.0 {x10E3/uL} (Normal) Range: [...] PANEL, COMPREHENSIVE Comments: PATIENT NOT FASTINGPERFORMED BY: [facility] CenterWsmchv4697 [facility] [id number] ([id number]) ALT (SGPT) 52 [iU]/L (Abnormal) Range: 0-44 [...] Glucose, Serum 105 mg/dL (Abnormal) Range: 65-99 20-Zwl-498166:11 CBC W/Diff, Automated Comments: DR VALLE ORDERED CMP CBCD ONLYDR VALLE ORDERED CMP CBCD [facility] [address] [facility], [place], [address] Absolute Lymph 1.15 {X10_3/ul} (Normal) Range: 0.83-4.51 [...] 4.6-6.2 WBC 7.1 K/mm3 (Normal) Range: 4.4-11.0 93-Jaf-915320:11 Comprehensive Metabolic Profil Comments: DR VALLE ORDERED CMP CBCD [facility] [address] [place], [place], [address] GAP 6 (Normal) Range: 5-15 CO2 30.0 [...] 7-18 GLU 101 mg/dL (Normal) Range: 70-110 63-Hsl-946440:11 CRP Comments: DR VALLE ORDERED CMP CBCD [facility] [address] [place], [place], [address] C-REACTIVE PROT 4.36 mg/L (Abnormal) Range: 0.0-3.0 Comments: C-Reactive Protein (CRP) provides useful information for thediagnosis, therapy and monitoring of inflammatory processesand associated diseases. For the evaluation of Relative Riskfor Cardiovascular Dise ase, a High Sensitivity CRP (HSCRP)should be ordered. :11 Free T3 Comments: DR VALLE ORDERED [facility] [address] [place], [place], [address] FREE T3 2.7 pg/mL (Normal) Range: 2.18-3.98 :11 Lipid Profile Comments: DR VALLE ORDERED [facility] [address] [place], [address] VLDL 15 mg/dL (Normal) Range: 5-40 LDL [...] - Annual Screen Comments: DR VALLE ORDERED [facility] [facility] [address] [place], [place], [id number] PSA,TOT SCREEN 0.89 ng/mL (Normal) Range: 0.00-4.00 Comments: This test was performed using the TPSA assay method for the[facility]ise [employer] chemistry system. Values obtained with differentassay methods cannot be used interchangably.When changing PSA assays in the course of monitoring apatient, additional sequential testing should be carriedout to confirm baseline values. :11 T4 Free Direct Comments: DR VALLE ORDERED CMP CBCD [facility] [address]pss[address] [place], [place], [address] T4 FREE DIRECT 1.08 ng/dL (Normal) Range: 0.76-1.46 :11 Thyroid Stim Hormone (TSH) Comments: DR VALLE ORDERED CMP CBCD [facility] [address]quud[address] [place], [place], [address] TSH 0.36 {uIU/mL} (Normal) Range: 0.358-3.74 :44 CBC W/Diff, Automated Comments: [facility] [address] [place], [place], [address] Absolute Lymph 1.41 {X10_3/ul} (Normal) Range: 0.83-4.51 [...] 4.6-6.2 WBC 6.6 K/mm3 (Normal) Range: 4.4-11.0 81-Nah-515678:44 Comprehensive Metabolic Profil Comments: T3F T4F TSHDR.VELLANKI CMP [place] Htsomcctns[address] [place], [address] GAP 6 (Normal) Range: 5-15 CO2 30.0 [...] 7-18 GLU 91 mg/dL (Normal) Range: 70-110 81-Bre-552810:44 Free T3 Comments: T3F T4F TSHDR.[facility] [address]dqc[address] [place], [address] FREE T3 2.6 pg/mL (Normal) Range: 2.18-3.98 :44 T4 Free Direct Comments: T3F T4F TSHDR.[facility] [address]xd[address] [place], [address] T4 FREE DIRECT 1.04 ng/dL (Normal) Range: 0.76-1.46 :44 Thyroid Stim Hormone (TSH) Comments: T3F T4F TSHDR.[facility] [address] [place], [address] TSH 0.26 {uIU/mL} (Abnormal) Range: 0.358-3.74 :13 CBC W/Diff, Automated Comments: [facility] [address] [place], [place], [address] ; apt next week Absolute Lymph 1.59 [...] 4.6-6.2 WBC 7.5 K/mm3 (Normal) Range: 4.4-11.0 18-Jul-20166:13 Comprehensive Metabolic Profil Comments: [facility] [address] [place], [place], [address] GAP 1 (Abnormal) Range: 5-15 CO2 33.0 [...] 70-110 :13 CRP, High Sensitivity Cardiac Comments: [facility] [address] [place], [address] CRP HIGH SENS 2.19 mg/L (Normal) Comments: Low Relative Risk of CVD <1.0 mg/L Average Relative Risk of CVD 1.0 - 3.0 mg/L High Relative Risk of CVD >3.0 mg/L 18-Jul-20166:13 Lipid Profile Comments: [facility] [address] [place], [address] VLDL 23 mg/dL (Normal) Range: 5-40 LDL [...] High Risk :13 Vitamin D,25 Hydroxy Comments: [facility] [address]jb[address] [place], [address] Vitamin D 25-OH 31.7 ng/mL (Normal) Comments: Vitamin D 25(OH) Status Range Deficiency <20 ng/mL (50nmol/L) Insuffciency 20 - 30 ng/mL (50 - 75 nmol/L) Sufficiency 30 - 100 ng/mL (75 - 250 nmol/L) Toxicity >100 ng/mL (>250 nmol/L); ADDENDA: normal and has apt next week 88-Mud-073682:07 Free T3 Comments: [facility] [address]ss[address] [place], [place], [address] FREE T3 2.4 pg/mL (Normal) Range: 2.18-3.98 01-Qny-389594:07 T4 Free Direct Comments: [facility] [address] [place], [address] T4 FREE DIRECT 1.16 ng/dL (Normal) Range: 0.76-1.46 21-Tlz-997817:07 Thyroid Stim Hormone (TSH) Comments: [facility] [address] [place], [place], [address] TSH 0.16 {uIU/mL} (Abnormal) Range: 0.358-3.74 :20 Urine Drug Screen neg for everything (Office - Urine Drug (Normal) Screen 11 Panel) (86123) :13 CBC W/Diff, Automated Comments: LIPID IS FOR DR. Aparicio [facility] [address] [place], [place], [address] Absolute Lymph 1.31 {X10_3/ul} (Normal) Range: 0.83-4.51 [...] 4.6-6.2 WBC 7.0 K/mm3 (Normal) Range: 4.4-11.0 11-Qqv-56024:13 Comprehensive Metabolic Profil Comments: LIPID IS FOR DR. Gutierrezian [facility] [address] [place], [place], [address] GAP 6 (Normal) Range: 5-15 CO2 29.0 [...] Lipid Profile Comments: [facility] Yonghzjnnl8[address] [place], [place], [address] VLDL 21 mg/dL (Normal) Range: 5-40 LDL [...] Borderline >240 mg/dL High Risk :59 TSH (95369) Comments: PATIENT NOT FASTINGPERFORMED BY: CB [facility] Ijtccx0402 [address] RoadDublin [place] [id number] TSH 0.250 {uIU/mL} (Abnormal) Range: 0.450-4.500 :59 CALCIUM, IONIZED (23731) Comments: PATIENT NOT FASTINGPERFORMED BY: CB [facility] Nduqxk8542 Philip RoadDublin [place] [id number] Calcium, Ionized, Serum 5.3 mg/dL (Normal) Range: 4.5-5.6 :59 PHOSPHORUS (99207) Comments: PATIENT NOT FASTINGPERFORMED BY: CB [facility] Xepasf9001 Philip RoadDublin [place] [id number] Phosphorus, Serum 4.1 mg/dL (Normal) Range: 2.5-4.5 :59 PARATHORMONE (49305) Comments: PATIENT NOT FASTINGPERFORMED BY: CB [facility] Zljkai1689 Philip RoadDublin [place] [id number] PTH, Intact 29 pg/mL (Normal) Range: 15-65 18-Gig-535237:59 VITAMIN B-12 (CYANOCOBALAMIN) Comments: PATIENT NOT FASTINGPERFORMED BY: [facility] [id number] (42662) Vitamin B12 793 pg/mL (Normal) Range: 211-946 :59 Anti-TPO Antibody (89524) Comments: PATIENT NOT FASTINGPERFORMED BY: [facility]6[address] [facility] [id number] Thyroid Peroxidase (TPO) Ab 8 {IU/mL} (Normal) Range: 0-34 :59 T4, FREE (THYROXINE) Comments: PATIENT NOT FASTINGPERFORMED BY: [facility]6[address] [facility] [id number] Information: [id number] (74847) T4,Free(Direct) 1.44 ng/dL (Normal) Range: 0.82-1.77 :59 T3, FREE (TRIDOTHYRONINE) (95864) Comments: PATIENT NOT FASTINGPERFORMED BY: [facility] [id number] Triiodothyronine,Free,Serum 3.1 pg/mL (Normal) Range: 2.0-4.4 :13 CBC W/Diff, Automated Comments: CBCD IS FOR [facility] [address] [place], [place], [address] ; ordered by maco Absolute Lymph 0.96 [...] 4.6-6.2 WBC 6.8 K/mm3 (Normal) Range: 4.4-11.0 95-Mqt-56472:13 Comprehensive Metabolic Profil Comments: LIPID,CMP,TSH ARE FOR AND CMP AND CBCD ARE FOR [place] [address] [place], [place], [address] GAP 4 (Abnormal) Range: 5-15 CO2 31.0 [...] FOR AND CMP AND CBCD ARE FOR [place] [address] [place], [address] VLDL 19 mg/dL (Normal) Range: [...] 200-240 mg/dL Borderline >240 mg/dL High Risk 64-Rwk-41252:13 Thyroid Stim Hormone (TSH) Comments: LIPID,CMP,TSH ARE FOR AND CMP AND CBCD ARE FOR [place] [address]terv[address] [place], [address] TSH 0.61 {uIU/mL} (Normal) Range: 0.358-3.74 34-Qqv-983210:22 Rapid Flu (72763 x 2) Comments: neg Influenza A Ag negative (Normal) : Jacy Osei CMP14 SPRCS (Normal) Comments: PATIENT WAS FASTINGPERFORMED BY: [facility]6[address] [facility] [id number] 17 Default Comments: A hand-written panel/profile was received from your office. Inaccordance with the [facility] Ambiguous Test Code Policy dated February2003, we have completed your order by using the closest currentlyor formerl y recognized AMA panel. We have assigned ComprehensiveMetabolic Panel (14), Test Code #369710 to this request. If thisis not the testing you wished to receive on this specimen, pleasecontact the [facility] Client Inquiry/Technical Services Departmentto clarify the test order. We appreciate your business. : Jacy Salmeron LP SPRCS (Normal) Comments: PATIENT WAS FASTINGPERFORMED BY: [facility]6[address] [facility] [id number] 17 Default Comments: A hand-written panel/profile was received from your office. Inaccordance with the [facility] Ambiguous Test Code Policy dated February2003, we have completed your order by using the closest currentlyor formerl y recognized AMA panel. We have assigned Lipid Panel,Test Code #412802 to this request. If this is not the testing youwished to receive on this specimen, please contact the [facility] In[facility]/Techni burak Services Department to clarify the testorder. We appreciate your business. :17 Comp. Metabolic Panel (14) Comments: PATIENT WAS FASTINGPERFORMED BY: [facility]6[address] [facility] [id number] ALT (SGPT) 21 [iU]/L (Normal) Range: 0-44 [...] Lipid Panel Comments: PATIENT WAS FASTINGPERFORMED BY: [facility] [id number]; non-emergent till apt LDL Cholesterol Calc 95 mg/dL (Normal) Range: 0-99 VLDL Cholesterol Burak 21 mg/dL (Normal) Range: 5-40 HDL Cholesterol 33 mg/dL (Abnormal) Comments: According to ATP-III Guidelines, HDL-C >59 mg/dL is considered anegative risk factor for CHD. Triglycerides 107 mg/dL (Normal) Range: 0-149 Cholesterol, Total 149 mg/dL (Normal) Range: 100-199 :17 Prostate-Specific Ag, Serum Comments: PATIENT WAS FASTINGPERFORMED BY: [facility]x6370 [facility] [id number] Prostate Specific Ag, 1.0 ng/mL (Normal) Range: 0.0-4.0 Serum Comments: Bliss HealthcareIA methodology. .According to the [place] [employer], Serum PSA shoulddecrease and remain at undetectable levels after radicalprostatectomy. The AUA defines biochemical recurrence as an initialPSA value 0.2 ng/mL or greater followed by a subsequent confirmatoryPSA value 0.2 ng/mL or greater.Values obtained with javon floresent assay methods or kits cannot be usedinterchangeably. Results cannot be interpreted as absolute evidenceof the presence or absence of malignant disease. :57 CBC W/Diff, Automated Comments: Test performed at:[facility] [address]tgwattt[address] [facility] [place] [address] Absolute Lymph 1.54 {X10_3/ul} (Normal) [...] 4.6-6.2 WBC 6.1 K/mm3 (Normal) Range: 4.4-11.0 :57 Comprehensive Metabolic Profil Comments: Test performed at:[facility] [address] [facility] [place] [address] GAP 7 (Normal) Range: 5-15 [...] 7-18 GLU 81 mg/dL (Normal) Range: 70-110 11-Mjc-125572:58 CBC W/Diff, Automated Comments: Test performed at:[facility] [address] [place] [address] Absolute Lymph 1.35 {X10_3/ul} (Normal) Range: 0.83-4.51 [...] 4.6-6.2 WBC 6.9 K/mm3 (Normal) Range: 4.4-11.0 02-Zgz-041912:58 Comprehensive Metabolic Profil Comments: Test performed at:[facility] [address]iernz[address], [place] [address] GAP 7 (Normal) Range: 5-15 CO2 29.0 [...] :27 CBC W/Diff, Automated Comments: Test performed at:[facility] Drdldgnftt[address] [place] [address] Absolute Lymph 1.27 {X10_3/ul} (Normal) Range: 0.83-4.51 [...] 4.6-6.2 WBC 6.2 K/mm3 (Normal) Range: 4.4-11.0 84-Dlk-09604:27 Comprehensive Metabolic Profil Comments: DR VALLE ORDERED CMP ABD CBCTest performed at:[facility] [address] [place] [address] GAP 5 (Normal) Range: 5-15 CO2 30.0 [...] 7-18 GLU 90 mg/dL (Normal) Range: 70-110 :27 Lipid Profile Comments: DR VALLE ORDERED CMP ABD CBCTest performed at:[facility] [address]em[address] [place] [address] VLDL 17 mg/dL (Normal) Range: 5-40 LDL [...] 200-240 mg/dL Borderline >240 mg/dL High Risk 60-Ffe-774472:25 Crystals, Body Fluid Comments: Comments: ArthrocentesisComments: ArthrocentesisTest performed at:[facility] [address] [place] [address] PATH REV May foll (Normal) SOURCE/BF SYNOVIAL (Normal) CRYSTALS/BF Absent (Normal) 64-Lqa-117372:25 Glucose, Body Fluid Comments: Comments: ArthrocentesisTest performed at:[facility] [address] [place], [place] [address] GLU,BF 10 mg/dL (Normal) 03-Fhh-039257:25 Protein, Body Fluid Comments: Comments: ArthrocentesisTest performed at:[facility] [address] [place], [place] [address] PROTEIN,BF 4.0 g/dL (Normal) 28-Xaa-75418:29 CMP GAP 5 (Normal) Range: 5-15 CO2 [...] CHOL 117 mg/dL (Normal) Comments: <200 mg/dL Ciqclewqs018-812 mg/dL Borderline>240 mg/dL High Risk :20 PSA 1.02 ng/mL (Normal) Range: 0.00-4.00 Comments: This test was performed using the TPSA assay method for thePh[employer]. chemistry system. Values obtained with differentassay methods cannot be used interchangably.When changing PSA assays in the course of monitoring apatient, additional sequential testing should be carriedout to confirm baseline values. 19-Nqa-251570:02 CBCD ALC 1.41 {X10_3/ul} (Normal) Range: 0.83-4.51 [...] 4.6-6.2 WBC 5.7 K/mm3 (Normal) Range: 4.4-11.0 73-Eap-904702:02 CMP GAP 4 (Abnormal) Range: 5-15 CO2 [...] 7-18 GLU 93 mg/dL (Normal) Range: 70-110 51-Gbr-780753:08 CBCD ALC 0.86 {X10_3/ul} (Normal) Range: 0.83-4.51 [...] 4.6-6.2 WBC 5.2 K/mm3 (Normal) Range: 4.4-11.0 03-Vpe-457135:08 CMP GAP 4 (Abnormal) Range: 5-15 CO2 [...] 7-18 GLU 84 mg/dL (Normal) Range: 70-110 :22 LIPID VLDL 15 mg/dL (Normal) Range: 5-40 [...] CHOL 109 mg/dL (Normal) Comments: <200 mg/dL Mcicbnmyd919-670 mg/dL Borderline>240 mg/dL High Risk :13 DANIELLE CULTURE-OTHER (66604) Comments: PATIENT NOT FASTINGPERFORMED BY: [facility] Ksahbd2895 [facility] [id number] Information: SRC:GURWINDER [id number] Result 1 RRF (Normal) Comments: Routine respiratory kaden Upper Respiratory Culture Final report (Normal) 1-Ukl-892128:27 Rapid Strep Test, Office (29748) Rapid Strep Test, Office Negative (Normal) :12 [...] CHOL 149 mg/dL (Normal) Comments: <200 mg/dL Cegmdzjhh390-020 mg/dL Borderline>240 mg/dL High Risk :29 CBCD [...] CHOL 143 mg/dL (Normal) Comments: <200 mg/dL Kkhqbkpcr304-690 mg/dL Borderline>240 mg/dL High Risk TRIG 66 [...] D deficiency has been defined by the Freedom ofMedicine and an Endocrine Society practice guideline as alevel of serum 25-OH vitamin D less than 20 ng/mL (1,2).The Endocrine Society went on to further define vitamin Dinsufficiency as a level between 21 and 29 ng/mL (2).1. IOM (Freedom of Medicine). 2010. Dietary reference intakes for calcium and D. [place]: The National Academies Press.2. Melanie MF, Evasn [place], Lora CRONIN, et al. Evaluation, treatment, and prevention of vitamin D deficiency: an Endocrine Society clinical practice guideline. JCEM. 2010; 96(7): 1911-30.Performed at: [address] [id number] Director: Abdi Navarrete PhD, Phone: [phone] :[phone] CBCD Comments: DR CAI ORDERED CMP [...] 7-18 GLU 90 mg/dL (Normal) Range: 70-110 16-Gvs-98131:25 LIPID Comments: DR CAI ORDERED CMP LIPIDDR [...] Very High > or = 500 mg/dL 2-Axu-299567:36 CBCMD Comments: DR VALLE ORDERED CMP CBCDDR FAST ORDERED CMP PSA CBCMD LIPID RBCM NORM [...] Please note: Revised HEMOGLOBIN REFERENCE RANGES Reference [place] [facility] 03/13/12.Please note: Revised HEMOGLOBIN REFERENCE RANGES Reference [employer] effective 03/13/12. RBC 4.86 {M/mm3} (Normal) Range: 4.6-6.2 WBC 6.3 K/mm3 (Normal) Range: 4.4-11.0 7-Ptf-481851:36 CMP Comments: DR VALLE ORDERED CMP CBCDDR [...] 7-18 GLU 93 mg/dL (Normal) Range: 70-110 8-Cgn-601123:36 LIPID Comments: DR VALLE ORDERED CMP CBCDDR [...] 200-240 mg/dL Borderline >240 mg/dL High Risk 2-Vhu-157504:36 PSA 0.99 ng/mL (Normal) Comments: DR VALLE ORDERED CMP CBCDDR FAST ORDERED CMP PSA CBCMD LIPID Range: 0.00-4.00 Comments: NEW TEST ASSAY METHOD JANUARY 01, 2012This test was performed using the TPSA assay method for the[employer].Com chemistry system. Values obtained with differentassay methods cannot be used interchangably.When ch anging PSA assays in the course of monitoring apatient, additional sequential testing should be carriedout to confirm baseline values. 23-Hee-952043:09 CBCD Comments: ORDERED LIPID CMPDRShahla VALLE ORDERED [...] 4.6-6.2 WBC 5.9 K/mm3 (Normal) Range: 4.4-11.0 04-Tcs-170604:09 CMP Comments: ORDERED LIPID CMPDR. LEONARD ORDERED CMP CBCD VITD GAP 6 (Normal) [...] 0.8-1.3 GLU 89 mg/dL (Normal) Range: 70-110 92-Xzu-308252:09 LIPID Comments: ORDERED LIPID CMPDR. LEONARD ORDERED CMP CBCD VITD VLDL 21 mg/dL [...] 200-240 mg/dL Borderline >240 mg/dL High Risk 12-Kjl-088388:09 VITD 40.4 ng/mL (Normal) Comments: ORDERED LIPID CMPDR. LEONARD ORDERED CMP CBCD VITD Range: 30.0-100.0 Comments: Vitamin D deficiency has been defined by the Freedom ofUniversity Hospitals [facility]aug[facility] Medical Centercine and an Endocrine Society practice guideline as alevel of serum 25-OH vitamin D less than 20 ng/mL (1,2).The Endocrine Society went on to further define vitamin Dinsufficiency as a level between 21 and 29 ng/mL (2).1. IOM (Freedom of Medicine). 2010. Dietary reference intakes for calcium and D. [place]: The National Academies Press.2. Melanie MF, [place], Lora CRONIN, et al. Evaluation, treatment, and prevention of vitamin D deficiency: an Endocrine Society clinical practice guideline. JCEM. 2010; 96(7): 1911-30. .Effective October 16, 2011, Vitamin D, 25 Hydroxy specimen requirements will change to serum only.Performed at: - Lab[address] [id number] Director: Mirna Gan MD, Phone: [phone] 24-Xcx-67748:26 CBCD Comments: DR CAI ORDERED LIPID,LIVERDR LEONARD [...] 4.6-6.2 WBC 6.7 K/mm3 (Normal) Range: 4.4-11.0 :26 COMP METABOLIC Comments: DR CAI ORDERED LIPID,LIVERDR [...] PERFORMED FROM THISSPECIMEN. PHYSICIAN ORDER REQUIRED. CALL [facility] FORTHIS REFLEX TESTING. [phone] :15 ANEX PANEL DESIZING MACHINE BACK TENDER AB 47 AU/mL (Normal) ANTI-COOK AB 12 AU/mL (Normal) :15 ANTI JO1 ANTI KATERIN 21 AU/mL (Normal) :15 ANTI SCL 70 ANTI-SCL 70 15 AU/mL (Normal) :15 ANTI-CCP 222888 3 {units} (Normal) Range: 0-19 Comments: Negative [...] 1.002-1.030 COLOR YELLOW (Normal) :15 HB CORE [id number] SeeNote (Normal) Comments: Result: Negative Performed at: [address] [id number] Director: Mirna Gan MD, Phone: [phone] at: [facility] Lab[address] [id number] Director: Terrence Moreno MD, Phone: [phone] at: [address] [place], [place] [address] [place], [place] [id number] Director: Viral Maya PhD, Phone: [phone] HBsAg 6510 HB SURF AG 6510 SeeNote (Normal) Comments: Result: Negative HEBSAB 6395 < 0.1 (Normal) Range: 0.00-0.99 Comments: Status of Immunity Anti-HBs Level Inconsistent with Immunity 0.00 - 0.99 Consistent with Immunity >0.99 . An Index Value of 1.00 is equivalent to 10 mIU/mL. However the magnitude of the Index Value is not indicative of the total amount of antibody present. HEP C AB 908720 <0.1 (Normal) Range: 0.0-0.9 Comments: Negative: < [...] of HLA Laboratory Dr Viral Maya, PhD PROT+CRE RATIO PROT:CRE RATIO <TEST NOT PERFORMED> {mg/g_CRE} (Normal) Range: 0-200 PROTEIN,UR.RAN. < 6.0 mg/dL (Normal) UR CREAT 17.0 mg/dL (Normal) SJOGREN'S SSA 229 AU/mL (Abnormal) SJOGRENS SSB SJOGREN'S SSB 18 AU/mL (Normal) VIT D,25 33084 46.3 ng/mL (Normal) Range: 32.0-100.0 Comments: Recent studies consider the lower limit of 32.0 ng/mL to nicanor threshold for optimal health.Aleks LOUIS. J Nutr. 2004;135(2):317-22. :17 AMANDEEP DIR SEMI-QL AMANDEEP DIRECT 261 AU/mL (Abnormal) Comments: REFLEX AMANDEEP PANEL TESTING CAN BE PERFORMED FROM THISSPECIMEN. PHYSICIAN ORDER REQUIRED. CALL [facility] FORTHIS REFLEX TESTING. [phone] 18-Qhf-942901:17 ANTI-dsDNA AB 9 {IU/mL} (Normal) :17 C-REACTIVE PROT < 2.90 mg/L (Normal) Range: 0.0-3.0 Comments: C-Reactive Protein (CRP) provides useful information for thediagnosis, therapy and monitoring of inflammatory processesand associated diseases. For the evaluation of Relative Riskfor Cardiovascular Dise ase, a High Sensitivity CRP (HSCRP)should be ordered. 20-Owd-500604:17 CBCD,SMEAR DIFF CELLS COUNTED 100 (Normal) EOS [...] T PROT 6.6 g/dL (Normal) Range: 6.4-8.2 31-Khp-549071:17 COMPLETE UA BACTERIA 0 SEEN {/hpf} (Normal) [...] 1.0 CLARITY CLEAR (Normal) COLOR YELLOW (Normal) 10-Ifc-358313:17 ESR SED RATE 1 mm/h (Normal) Range: 0-20 97-Mfn-799371:17 LIPID HDL 28 mg/dL (Abnormal) Comments: Reference [...] CHOL 191 mg/dL (Normal) Comments: <200 mg/dL Cuxhtpqag684-916 mg/dL Borderline>240 mg/dL High Risk 22-Oox-993342:17 PSA, SCREEN 0.6 ng/mL (Normal) Range: 0.0-4.0 68-Ybh-851373:17 RHEUMATOID FAC < 10.0 {IU/mL} (Normal) Plan [...] Wt loss Indication: Other hyperlipidemia Planned Observations Drug Screen (7drug + Alcohol) (62706)Indication: Attention deficit disorder of adult On: 4-Aug-837185:04 Request TSH (86286)Indication: Hyperthyroidism On: 82-Pee-195750:04 Request METABOLIC PANEL, COMPREHENSIVE (91325)Indication: Other hyperlipidemia On: 40-Acb-179334:04 Request LIPID PANEL (19656)Indication: Other hyperlipidemia On: 59-Pua-940178:04 Request Urine Drug Screen -Medicare (Office - Urine Drug Screen 9 Panel) (80996)Indication: Attention deficit disorder of adult On: 62-Xqr-315741:46 Request Comments: appropriate results positive for amphetamine CBC W/AUTO DIFF WBC (50086)Indication: Memory loss On: 39-Zhq-631720:08 Request METABOLIC PANEL, COMPREHENSIVE (99747)Indication: Memory loss On: 94-Tnt-672178:08 Request LIPID PANEL (88504)Indication: Other hyperlipidemia On: :08 Request TSH (31680)Indication: Hyperthyroidism On: 71-Pqp-313816:07 Request PSA (PROSTATE SPECIFIC ANTIGEN) (V76.44)Indication: Encounter for screening for malignant neoplasm of prostate (Renamed from Screening for prostate cancer) On: 36-Qza-899191:01 Request HEPATITIS C ANTIBODY (93861)Indication: Liver function abnormality On: 2-Xqp-388068:18 Request CBC W/AUTO DIFF WBC (56688)Indication: Liver function abnormality On: 39-Vgv-833583:00 Request TSH (03831)Indication: Hyperthyroidism On: 45-Qvj-983842:59 Request METABOLIC PANEL, COMPREHENSIVE (64512)Indication: Liver function abnormality On: 98-Iau-240390:58 Request LIPID PANEL (71387)Indication: Other hyperlipidemia On: 12-Lpg-263595:58 Request METABOLIC PANEL, COMPREHENSIVE (41719)Indication: Liver function abnormality On: 89-Fmw-094491:09 Request CBC W/AUTO DIFF WBC (05298)Indication: Anxiety On: 23-Ure-37140:41 Request LIPID PANEL (21437)Indication: Other hyperlipidemia On: :30 Request TSH (04961)Indication: Hyperthyroidism On: :29 Request HEPATITIS C ANTIBODY (23377)Indication: Encounter for hepatitis C virus screening test for high risk patient On: 53-Ojx-90703:44 Request CBC W/AUTO DIFF WBC (07325)Indication: Abnormal C-reactive protein On: 8-Sun-395921:16 Request METABOLIC PANEL, COMPREHENSIVE (04818)Indication: Other hyperlipidemia On: :15 Request LIPID PANEL (70292)Indication: Other hyperlipidemia On: 5-Sbz-921707:15 Request C-REACT PROT HIGH SENS(hsCRP) (11273)Indication: Abnormal C-reactive protein On: 7-Ojt-627975:15 Request PSA (PROSTATE SPECIFIC ANTIGEN) (V76.44)Indication: Encounter for screening for malignant neoplasm of prostate (Renamed from Screening for prostate cancer) On: :16 Request CBC with auto diff (96649)Indication: Memory loss On: :14 Request METABOLIC PANEL, COMPREHENSIVE (62203)Indication: Memory loss On: :14 Request T4, FREE (THYROXINE) (01479)Indication: Hyperthyroidism On: :14 Request T3, FREE (TRIDOTHYRONINE) (63796)Indication: Hyperthyroidism On: :14 Request C-REACT PROT HIGH SENS(hsCRP) (96910)Indication: Abnormal C-reactive protein On: :14 Request LIPID PANEL (36337)Indication: Other hyperlipidemia On: : Request TSH (23249)Indication: Hyperthyroidism On: Request T4, FREE (THYROXINE) (36905)Indication: Hyperthyroidism On: : Request T3, FREE (TRIDOTHYRONINE) (25928)Indication: Hyperthyroidism On: : Request TSH (58961)Indication: Hyperthyroidism On: :13 Request Vitamin D Hydroxy (29510)Indication: Memory loss On: : Request CBC W/AUTO DIFF WBC (65814)Indication: Other hyperlipidemia On: Request LIPID PANEL (09163)Indication: Other hyperlipidemia On: Request METABOLIC PANEL, COMPREHENSIVE (53424)Indication: Other hyperlipidemia On: Request C-REACT PROT HIGH SENS(hsCRP) (13835)Indication: Abnormal C-reactive protein On: : Request T4, FREE (THYROXINE) (25131)Indication: Abnormal TSH On: :16 Request T3, FREE (TRIDOTHYRONINE) ([id number])Indication: Abnormal TSH On: :16 Request TSH ([id number])Indication: Abnormal TSH On: :16 Request CBC W/AUTO DIFF WBC (22092)Indication: Gastroesophageal reflux disease without esophagitis On: :45 Request METABOLIC PANEL, COMPREHENSIVE (03827)Indication: Other hyperlipidemia On: :45 Request LIPID PANEL (31718)Indication: Other hyperlipidemia On: :44 Request CALCIUM SERUM ([id number])Indication: Hypocalcemia On: 45-Ovw-51752:00 Request PHOSPHORUS (31092)Indication: Hypocalcemia On: :59 Request PARATHORMONE (97720)Indication: Hypocalcemia On: :59 Request Vitamin D Hydroxy (17592)Indication: Hypocalcemia On: :59 Request TSH (83626)Indication: Anxiety On: :38 Request METABOLIC PANEL, COMPREHENSIVE (15822)Indication: Other hyperlipidemia On: :38 Request LIPID PANEL (19474)Indication: Other hyperlipidemia On: :33 Request BACT CULTURE ANY-ANAEROBIC (53192)Indication: Sore throat and laryngitis On: :49 Request Rapid Strep Test, Office (15076)Indication: Sore throat and laryngitis On: 99-Grd-456619:48 Request Rapid Flu (92572 x 2)Indication: Fever and chills On: 87-Xdb-184411:48 Request PSA (PROSTATE SPECIFIC ANTIGEN) (V76.44)Indication: Screening for prostate cancer On: 6-Ulw-259286:03 Request METABOLIC PANEL, COMPREHENSIVE ([id number])Indication: Other hyperlipidemia On: 9-Gid-043175:03 Request LIPID PANEL ([id number])Indication: Other hyperlipidemia On: 6-Xss-719430:03 Request CBC W/AUTO DIFF WBC (30067)Indication: Elevated blood-pressure reading without diagnosis of hypertension On: 5-Xcg-142681:40 Request METABOLIC PANEL, COMPREHENSIVE (42212)Indication: Elevated blood-pressure reading without diagnosis of hypertension On: 1-Lzm-063879:40 Request LIPID PANEL ([id number])Indication: Other hyperlipidemia On: 7-Brs-697186:40 Request PSA (PROSTATE SPECIFIC ANTIGEN) (V76.44)Indication: screening On: :31 Request METABOLIC PANEL, COMPREHENSIVE ([id number])Indication: Other hyperlipidemia On: 6-Amk-751346:30 Request LIPID PANEL (44774)Indication: Other hyperlipidemia On: 7-Jcg-424127:29 Request METABOLIC PANEL, COMPREHENSIVE (91583)Indication: Other hyperlipidemia On: 8-Qop-887831:56 Request PSA (PROSTATE SPECIFIC ANTIGEN) (70511)Indication: Screening for prostate cancer On: 2-Wpp-652779:28 Request PSA (PROSTATE SPECIFIC ANTIGEN) (V76.44)Indication: Screening for prostate cancer On: : Request METABOLIC PANEL, COMPREHENSIVE (18788)Indication: Anxiety On: :25 Request LIPID PANEL ([id number])Indication: Other hyperlipidemia On: 10-Dla-437235:00 Request HEPATIC FUNCTION PANEL (74891)Indication: Other hyperlipidemia On: 67-Ccs-967847:00 Request METABOLIC PANEL, COMPREHENSIVE (90841)Indication: Other hyperlipidemia On: 12-Qgk-059085:32 Request LIPID PANEL ([id number])Indication: Other hyperlipidemia On: 71-Jnu-822119:31 Request METABOLIC PANEL, COMPREHENSIVE (98313)Indication: Elevated blood-pressure reading without diagnosis of hypertension On: 19-Fhq-394580:23 Request LIPID PANEL ([id number])Indication: Other hyperlipidemia On: 54-Qcv-234096:23 Request CALCIUM SERUM ([id number])Indication: Hypocalcemia On: 76-Vop-459011:30 Request PARATHORMONE ([id number])Indication: Hypocalcemia On: 54-Zlb-844061:30 Request PHOSPHORUS (15683)Indication: Hypocalcemia On: 86-Jgt-100420:29 Request TSH ([id number])Indication: Hypocalcemia On: 61-Rcd-889183:29 Request Vitamin D Hydroxy (05517)Indication: Hypocalcemia On: 91-Eql-285989:29 Request LIPID PANEL (10127)Indication: Other hyperlipidemia On: :44 Request METABOLIC PANEL, COMPREHENSIVE (93781)Indication: Other hyperlipidemia On: 19-Qxb-886649:44 Request PSA (PROSTATE SPECIFIC ANTIGEN) (V76.44)Indication: Screening for prostate cancer On: 82-Zwf-097632:09 Request LIPID PANEL ([id number])Indication: Other hyperlipidemia On: :08 Request CBC WITH MANUAL DIFF ([id number])Indication: Elevated blood-pressure reading without diagnosis of hypertension On: 02-Baj-142004:08 Request METABOLIC PANEL, COMPREHENSIVE (03029)Indication: Elevated blood-pressure reading without diagnosis of hypertension On: 46-Umd-684065:08 Request METABOLIC PANEL, COMPREHENSIVE ([id number])Indication: Anxiety On: :46 Request LIPID PANEL ([id number])Indication: Other hyperlipidemia On: :46 Request PSA (PROSTATE SPECIFIC ANTIGEN) (V76.44)Indication: Screening for prostate cancer On: :09 Request HEPATIC FUNCTION PANEL ([id number])Indication: Other hyperlipidemia On: : Request LIPID PANEL (57729)Indication: Other hyperlipidemia On: : Request PSA (PROSTATE SPECIFIC ANTIGEN) (V76.44)Indication: Screening for prostate cancer On: :11 Request HEPATIC FUNCTION PANEL (69935)Indication: Other hyperlipidemia On: 7-Zlh-601628:10 Request LIPID PANEL ([id number])Indication: Other hyperlipidemia On: :10 Request HEPATIC FUNCTION PANEL ([id number])Indication: Other hyperlipidemia On: :04 Request LIPID PANEL ([id number])Indication: Other hyperlipidemia On: 02-Zko-167967:04 Request PSA (PROSTATE SPECIFIC ANTIGEN) (V76.44)Indication: Screening for prostate cancer On: 5-Wnn-598538:55 Request URINALYSIS, W/ MICRO ([id number])Indication: Osteoarthritis, unspecified osteoarthritis type, unspecified site On: 9-Jgl-199085:55 Request METABOLIC PANEL, COMPREHENSIVE (46948)Indication: Osteoarthritis, unspecified osteoarthritis type, unspecified site On: 8-Nro-598946:54 Request CBC WITH MANUAL DIFF ([id number])Indication: Osteoarthritis, unspecified osteoarthritis type, unspecified site On: 1-Gjz-805880:54 Request LIPID PANEL ([id number])Indication: Other hyperlipidemia On: 3-Ywl-400089:54 Request AMANDEEP (ANTINUCLEAR ANTIBODY) ([id number])Indication: Osteoarthritis, unspecified osteoarthritis type, unspecified site On: 1-Zof-429990:53 Request RHEUMATOID FACTOR-QUANT (08792)Indication: Osteoarthritis, unspecified osteoarthritis type, unspecified site On: 4-Vhq-367901:53 Request C-REACTIVE PROTEIN ([id number])Indication: Osteoarthritis, unspecified osteoarthritis type, unspecified site On: 0-Hay-923806:53 Request SED RATE ERYTHROCYTE ([id number])Indication: Osteoarthritis, unspecified osteoarthritis type, unspecified site On: 1-Ccm-738574:53 Request Planned Encounters Medical; ADD EST VISIT - On: 27-Jan-2019 15:30 [facility] Terrence HICKEY, Ingrid Lee Planned Procedures Flu Vaccine (Quadrivalent) On: 30-Apr-2018 Intent 43284Fd: Fast DO, Ana A Fast Comments: Lot #[id number]-L dltd, IMDose prefilled syringegiven by: HERNANDO Velez reviewed and ABN signed DO, Ana A Flu Vaccine (Quadrivalent) On: 05-Jun-2017 Intent 47949Lv: Mynor DO Naa A Fast Comments: lot: [id number]: 01/28/18ite/route: L jefe, IMamt: 0.5mlVIS and ABN signed when applicableKANG Pinto DO, Ana A PNEUM VAC ADLT/IMUMNOSPR, On: 09-Apr-2017 Intent SBC/INTRM ([id number])By: Mynor ZAMAN, Comments: lot: [id number]: 09/20/18site/route: L del/IMamt: 0.5mLVIS signed when applicableKANG Pinto Fast DO, Ana A ELECTROCARDIOGRAM, COMPLETE On: 09-Apr-2017 Intent (ECG) (44739)By: Ana Cai DO Comments: ekg showed normal sinus rhythym, normal axis, no acute st/t wave changes A Fast DO, Ana A THYROID SCAN UPTAKE (99623)By: On: 25-Aug-2016 Intent Mynor DO Ana A Fast DO, Ana A Flu Vaccine (Quadrivalent) On: 15-May-2016 Intent 22260Hl: Fast DO, Ana A Fast Comments: Lot #:[id number] date:02/09/17mount given:0.5mlRoute: IMSite given: left dewltoidGiven by: LEANDRO Perez DO, Ana A ADMINISTRATION OF INFLUENZA On: 15-May-2016 Intent VIRUS VACCINE (G0008)By: Mynor ZAMAN, Ana A Fast DO, Ana A CT - Brain/Head (IV Contrast On: 03-Apr-2016 Intent Needed)By: Mynor ZAMAN, Ana A Fast DO, Ana A ELECTROCARDIOGRAM, COMPLETE On: 03-Apr-2016 Intent (ECG) (28187)By: Ana Cai DO Comments: ekg showed normal sinus rhythym, normal axis, no acute st/t wave changes sinus surjit A Fast DO, Ana A Cartoid DopplerBy: Fast DO, On: 19-Jul-2015 Intent Ana A Mynor DO, Ana A Flu Vaccine (Quadrivalent) On: 19-Jul-2015 Intent 42989Tz: Mynor ZAMAN, Ana A Fast Comments: lot [id number]: 02/10/2016site/route L jefe, IMamt 0.5mlVIS and ABN signed when applicableCheKANG oropeza DO, Ana A ADMINISTRATION OF INFLUENZA On: 19-Jul-2015 Intent VIRUS VACCINE (G0008)By: Jung Cai DOa A Fast DO, Ana A Aerosol Treatment (34055)By: On: 30-Jun-2015 Intent Janice Hopper DO Comments: more a.e no wheeze -- really better Radiology - Chest- PA and On: 30-Jun-2015 Intent LatBy: Janice Hopper DO Cartoid DopplerBy: Mynor ZAMAN, On: 18-May-2014 Intent Ana A Mynor DO, Ana A FLU VAC, SPLIT, >3 YEARS, On: 18-May-2014 Intent INTRAMUSC (29419)By: Mynor ZAMAN, Comments: Lot #:[id number] date:04/2016Amount given:0.5mlRoute: IMSite given: left deltoidGiven by: LEANDRO Perez DO, Ana A IMMUNIZ ADMNIN, 1 VAC, On: 18-May-2014 Intent SNGL/COMBO (12732)By: Ana Cai DO Fast DO, Ana A Eprescribed prescriptions On: 17-Nov-2013 Intent (G8553)By: Ana Cai DO DO, Ana A Solu- Medrol Injection, 125mg On: 05-Aug-2013 Intent (J2930)By: Ana Cai DO Comments: Lot #[id number] syringegiven by:HENRANDO Dixon signed Mynor DO, Ana A Aerosol Treatment (08367)By: On: 05-Aug-2013 Intent Fast DO, Ana A Fast DO, Ana A Spirometry (04946)By: Fast DO, On: 05-Aug-2013 Intent Ana A Fast DO, Ana A Comments: good effort and curve mod obst Pulse Oximetry (18291)By: Mynor On: 05-Aug-2013 Intent DO, Ana A Fast DO, Ana A Comments: 98 Radiology - Chest- PA and On: 05-Aug-2013 Intent LatBy: Fast DO, Ana A Fast DO, Ana A Eprescribed prescriptions On: 05-Aug-2013 Intent (G8553)By: Millie Christine FLU VAC, SPLIT, >3 YEARS, On: 16-Jul-2013 Intent INTRAMUSC (63257)By: Mariam, Comments: Lot #:[id number] date:mount given:0.5mlRoute: IMSite given: L dltdVIS and ABN signedGiven by: LEANDRO Perez IMMUNIZ ADMNIN, 1 VAC, On: 16-Jul-2013 Intent SNGL/COMBO (32128)By: Amaris Becerra Eprescribed prescriptions On: 16-Jul-2013 Intent (G8553)By: Amaris Becerra EKG (70276)By: Mariam, On: 24-Feb-2013 Intent Amaris Comments: ekg showed normal sinus rhythym, normal axis, no acute st/t wave changes Cartoid DopplerBy: Fast DO, On: 24-Feb-2013 Intent Ana A Fast DO, Ana A Eprescribed prescriptions On: 24-Feb-2013 Intent (G8553)By: Amaris Becerra Eprescribed prescriptions On: 21-Oct-2012 Intent (G8553)By: Amaris Becerra Eprescribed prescriptions On: 29-Jul-2012 Intent (G8553)By: Amaris Becerra FLU VAC, SPLIT, >3 YEARS, On: 24-May-2012 Intent INTRAMUSC (07880)By: Aime Comments: Lot #[id number]/30/13Site-left deltoidgiven by: Carlos Salomon LPN LPN, Connie IMMUNIZ ADMNIN, 1 VAC, On: 24-May-2012 Intent SNGL/COMBO (80655)By: Julissa Salomon LPN DopplerBy: Fast DO, On: 25-Mar-2012 Intent Ana A Fast DO, Ana A Comments: may EKG (35476)By: Mariam, On: 30-Oct-2011 Intent Amaris Comments: ekg showed normal sinus rhythym, normal axis, no acute st/t wave changes TD Injection , IM (58059)By: On: 06-Jun-2011 Intent Amaris Becerra Comments: [facility] at [facility] FLU VAC, SPLIT, >3 YEARS, On: 06-Jun-2011 Intent INTRAMUSC (49869)By: Mariam, Comments: Lot #:[id number] date:mount given:0.5mlRoute: IMSite given:left deltGiven by: LEANDRO Perez IMMUNIZ ADMNIN, 1 VAC, On: 06-Jun-2011 Intent SNGL/COMBO (19453)By: Amaris Becerra Cartoid DopplerBy: Fast DO, On: 25-Apr-2011 Intent Ana A Fast DO, Ana A EKG (08700)By: Fast DO, Ana On: 16-Feb-2010 Intent A Fast DO, Ana A Comments: ekg showed normal sinus rhythym, normal axis, no acute st/t wave changes Planned Medications INJECTION, METHYLPREDNISOLONE SODIUM SUCCINATE, UP TO 125 MG Ordered: 05-Aug-2013 Pending Fast DO, Ana A Fast DO, Ana A Instructions Name Dates Details BMI 30.0-30.9,adult [...] Anxiety : Patient Instructions Indication: Anxiety Encounters Review On: 22-Jul-2018 13:16 Encounter Reason: Physical [...] and PSA (12/2017). Note for Physical exam: [facility]:Encounter Diagnosis: Smoker, BMI 30.0-30.9,adult [facility] Office Visit On: 15-Jul-2018 [...] medical issues: he has allergies using zyrtec in g singulair and wa nts to try [...] needs to see endo sent message to [employer] about being on stimulant with thryoid off [...] seing neuro and he willing to see Turner who he saw before --- tolerating crestor [...] libido is normal. Note for Physical exam: [facility] Wellness Exam- weight down 5 pounds [...] - Date: (02/02/16). Encounter Diagnosis: Abnormal TSH, [facility], Memory loss, Primary dysthymia, [...] for Tdap vaccination (Renamed from Need for kreeistbab-yydyrth-sjaxdtflo (Tdap) vaccine, adult/adolescent), Gastroesophageal reflux disease without [...] him tired sx 3 weeks with colored drlindaangeEncounter Diagnosis: Upper Respiratory Infection (465.9) [facility] [...] on augmentin f or ear issues from [facility] x1 - sunday throat sore all the time no [...] out alot of crap- feels better- saw Mirtabonnie and said has psoriatic arthritis- and on [...] 16-Feb-2010 15:19 Encounter Reason: new patient male abraham - Last seen more than 1 year [...] 2 years??). Note for new patient male abraham: he tries to do physical yearly- but [...] Sleep disorder (780.50) [facility]; a guarantor
--- OUTSIDE RECORDS SUMMARY | 2018-10-30 18:37 | XMS RPT_ITS | Continuity of Care Document ---
:1960 Author Organization [facility] Address [address] [facility] [address] [place] [address] Phone Care Team Providers Name Role Phone Ana Cai DO Unavailable Lupillo Taylor Unavailable Sin Gupta MD Unavailable Dr. Lowell Corbin Unavailable Terrence Turner Unavailable Dante Cook Unavailable Unavailable Millie Christine Unavailable Unavailable Ayla eMjia Unavailable Unavailable Amaris Becerra Unavailable Unavailable Unavailable Unavailable Problems Name Dates Details Abnormal C-reactive protein (R79.89, 790.99) Status: Active Abnormal TSH (R79.89, 790.6) Comments: repeat normal Status: Active Anxiety (F41.9, 300.00) Comments: controlled Status: Active Attention deficit disorder of adult (F98.8, 314.00) Comments: right now doing better talk about the CBT needs and the ways to heop with doing list and complete firstthing on list to go to second. complete things as told and comes in. working on familyinteraction now that being treated.CCS 6-17, drug screen 1-18 Status: Active Bilateral carotid artery stenosis (I65.23, 433.10) Comments: chronic stable-continue present regimen Status: Active BMI 31.0-31.9,adult (Z68.31, V85.31) Status: Active Bronchitis with asthma, acute (J20.9, [...] if not better call and send to family support coordinator Status: Active Unspecified Diagnosis Status: Active Wheezing (R06.2, 786.07) Status: Active Medications Name Dates Details Amphetamine-Dextroamphet ER 20 MG Oral Capsule Extended Release 24 Hour 1 (one) Capsule ER 24HR bid for 0 days Quantity: 60 {Capsule} Refills: 0 Ordered:09-Jul-2018 Ingrid Ocampo MD Start : 09-Jul-2018 Active Comments:sixtyplease dispense blue capsules onlyDX: F98.8 B-COMPLEX (Oral Capsule) 1 cap qd for 0 days Refills: 0 Ordered:04-Dec-2016 Flinner, JenniferActive Calcium 600+D Plus Minerals 600-400 MG-UNIT Oral Tablet Chewable 1 (one) Tablet Chewable qd for 0 days Quantity: 30 {Tablet} Refills: 3 Ordered:25-Feb-2016 DOAna AFtray DO, Ana A Start : 25-Feb-2016 Active Crestor 10 MG Oral Tablet 1 (one) Tablet qd for 90 days Quantity: 90 {Tablet} Refills: 3 Ordered:25-Mar-2018 DOJunga AFtray DO, Ana A Start : 25-Mar-2018 Active DULoxetine HCl 20 MG Oral Capsule Delayed Release Particles 2 (two) Capsule DR Part qd for 0 days Quantity: 180 {Capsule} Refills: 3 Ordered:09-Apr-2017 Fast DO Ana AFtray DO, Ana A Start : 09-Apr-2017 Active DULoxetine HCl 20 MG Oral Capsule Delayed Release Particles 2 (two) Capsule DR Part qd for 0 days Quantity: 180 {Capsule} Refills: 3 Ordered:09-Apr-2017 DO Ana AFast DO, Ana A Start : 09-Apr-2017 Active Escitalopram Oxalate 20 MG Oral Tablet 1 (one) Tablet qhs for 90 days Quantity: 90 {Tablet} Refills: 3 Ordered:03-Sep-2017 Fast DOJunga AFtray DO, Ana A Start : 03-Sep-2017 Active FOLIC ACID, 1MG (Oral Tablet) 1 tab qd (1 MG) Active LORazepam 0.5 MG Oral Tablet 1 (one) Tablet qd prn for 30 days Quantity: 30 {Tablet} Refills: 0 Ordered:01-Jul-2018 Fast DOJunga AFtray DO, Ana A Start : 01-Jul-2018 Active Comments:thirty Methotrexate 2.5 MG Oral Tablet 6 once weekly (2.5 MG) Active Comments:vashti Montelukast Sodium 10 MG Oral Tablet 1 (one) Tablet qd in evening for 90 days Quantity: 90 {Tablet} Refills: 3 Ordered:29-Jun-2017 Mynor DO, Ana Palafox DO, Ana A Start : 29-Jun-2017 Active [...] Amaris Becerra Start : 25-Feb-2016 Active Comments:Leonard Carrolltil HFA 108 (90 Base) MCG/ACT Inhalation Aerosol Solution 2 (two) Aerosol Soln q 6 hr prn for 0 days Quantity: 1 {Inhaler} Refills: 1 Ordered:24-Dec-2017 Mynor ZAMAN, Ana Palafox DO, Ana A Start : 24-Dec-2017 Active VITAMIN C, 500MG (Oral Tablet) 1 tab qd during winter months for 0 days Refills: 0 Ordered:16-Nov-2014 Manchak, ChelseaActive AMOXICILLIN-POT CLAVULANATE, 875-125MG (Oral Tablet) 1 (one) Tablet Tablet bid for 0 days Quantity: 20 {Tablet} Refills: 0 Ordered:26-Jul-2015 Rae Hernandez LPN Start : 20-Apr-2015 End : 26-Jul-2015 Inactive [...] {Tablet} Refills: 0 Ordered:03-Apr-2018 Fast DO, Ana AFtray DO, Ana A Start : 24-Dec-2017 End : 03-Apr-2018 Inactive CLOTRIMAZOLE, 10MG (Mouth/Throat Riya) 1 (one) Riya 5x daily for 10 days Quantity: 50 {Riya} Refills: 0 Ordered:26-Jul-2015 Hyacinth Fallon CNP Start : 26-Jul-2015 End : 05-Aug-2015 Inactive [...] Quantity: 90 {Tablet} Refills: 0 Ordered:25-Feb-2016 Fast DOJunga AFtray DO, Ana A Start : 25-Feb-2016 End : 25-Feb-2016 Discontinued CHERATUSSIN AC, 100-10MG/5ML (Oral Syrup) 1-2 Teaspoon qhs prn for 0 days Quantity: 6 {Ounce} Refills: 0 Ordered:08-Nov-2015 Amaris Becerra Start : 26-Jul-2015 End : 08-Nov-2015 Discontinued Escitalopram Oxalate 20 MG Oral Tablet 1/2 Tablet qhs for 90 days Quantity: 90 {Tablet} Refills: 3 Ordered:15-May-2016 Fast DO Ana AFast DO, Ana A Start : [...] (Z68.30, V85.30) Status: Inactive as of 24-Dec-2017 Bronchitis (J40, 490) Comments: sinusitis as well [...] as of 18-Oct-2010 Hypocalcemia (E83.51, 275.41) Status: Inactive as of 09-Jun-2016 Hypocalcemia (E83.51, 275.41) Status: Resolved as of 21-Oct-2012 [facility] Status: Resolved as of 16-Jul-2017 [facility] Status: Inactive as of 09-Jun-2016 [...] (Z23, V04.81) Status: Resolved as of 16-Jul-2017 Need for prophylactic vaccination and inoculation against influenza (Renamed from Need for immunization against influenza) (Z23, V04.81) Status: Inactive as of 08-Nov-2015 Need for prophylactic vaccination and inoculation against influenza (Renamed from Need for immunization against influenza) (Z23, V04.81) Status: Inactive as of 09-Jun-2016 NEED FOR PROPHYLACTIC VACCINATION WITH TETANUS TOXOID ALONE (V03.7) Status: Inactive as of 09-Jun-2016 Need for Tdap vaccination (Renamed from Need for wloecwzgvo-nuydqtt-krzqljpva (Tdap) vaccine, adult/adolescent) (Z23, V06.1) Status: Inactive [...] Procedure Dates Details TDAP VACCINE >7 IM (03905) Date: 08-Nov-2015 Completed 08-Nov-2015 nasal septal deviation urgery Completed Tonsillectomy Completed uvuloplasty/palate surgery Completed Date Value Details 23-Oct-2016 Sleep Study Report Result: Comments: See Note; NOTES: [facility] [address] [place] [address] Polysomnography with NCPAP MR#: [id number] Acct: [id number] Name: ORACIO ELIZALDE ep #: [id number] : 1960 56 From: Terrence Turner MD [...] version). Please note that a reference to [facility] AHI in this report is consistent with the current Hypopnea definition according to Medicare Criteria and an AASM AHI reference is consistent with the current Hypopnea definition according to the AASM criteria and is recognized by [facility] as the RDI. PROCEDURE: The study was attended continuously by a building services technician. Monitored parameters included left and right [...] calculated body mass index of 28, an Gleason Sleepiness Scale score of 11/24. The patient [...] M.D. Terrence Turner MD T: NTS JOB: [id number] CC: Terrence Turner MD 42 4210/23/16 1130 <Electronically signed by Terrence Turner MD&#62 ; Date Terrence Turner MD Co-signature (if applicable) Date Signed -Sep-2016 Thyroid Uptake Single or Mult Result: Comments: See Note; NOTES: [facility] Imaging Services [address] [place] [address] Verdana 4d Thyroid Uptake Single or Mult MR#: [id number] Acct: [id number] Name: Javon ELIZALDE Rep #: [id number] : 1960 M 56 From: Sin Brantley DO PCP: Ana Cai DO Status: REG CLI Study: Thyroid Uptake Single or Mult Date of Exam: 09/25/16 Exam# [id number] Ordering Dr: Pearce DO CLINICAL: 56-year-old male [...] at 23:21 EST Tel , Service support [phone], CC: Ana Cai DO Blender Operator: Signed 04-Apr-2016 Brain/Head W/WO Contrast Result: Comments: See Note; NOTES: [facility] Imaging Services [address] [facility] [place] [address] Verdana 4d Brain/Head W/WO Contrast MR#: [id number] Acct: [id number] Name: FANNY ELIZALDEQUANG Rep #: [id number] : 1960 M 56 From: Cuauhtemoc Vo MD PCP: Ana Cai DO Status: REG CLI Study: Brain/Head W/WO Contrast Date of Exam: 04/04/16 Exam# [id number] Ordering Dr: Ana Cai DO STUDY: CT [...] Cuauhtemoc Vo MD at 8:08 EDT Tel [phone], Service support [phone], CC: Ana Cai DO Blender Operator: Signed 16-Aug-2014 Emergency Department Summary Result: Comments: See Note; NOTES: [facility] Medical Records Department [address] [place] [address] Emergency Department Summary MR#: [id number] Acct: [id number] Name: ORACIO LOPEZ Rep #: [id number] : 1960 54 From: Donn Jacobo MD PCP: Ana Cai DO Status: [facility] ER DATE OF SERVICE: 08/07/2014 CHIEF COMPLAINT: [...] given a prescription for na proxen and Van Buren. He will be discharged to follow up with Dr. Pierce. DISPOSITION: Discharge. DIAGNOSES: 1. Right knee effusion: 2. Inflammatory process of right knee. Donn Jacobo MD T: NTS JOB: [id number] 08/16/14 0852 <Electronically signed by Donn Jacobo MD> Date Donn Jacobo MD CC: Ana Cai DO Date Dictated: 2208 Date Transcribed: 08/07/142208 Blender Operator: Signed 07-Aug-2014 Discharge Instruction Result: Comments: See Note; NOTES: [facility] Medical Records Department [address] [place] [address] Discharge Instruction 08/07/142205 MR#: [id number] Acct: [id number] Name: ORACIO ELIZALDE Rep #: [id number] : 1960 54 From: Donn Jacobo MD PCP: Ana Cai DO Status: REG ER ED Disposition - Plan for ED Patient: Disposition: Home Chief Complaint: Lower Ext remity Injury Discharge Problem: Effusion of left knee, 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 Call [facility] ( [phone]) or report to the closest Emergency Room. Call 911 if necessary. 08/07/142207 <Electronically signed by Donn Jacobo MD> Date Donn Lawson Signature (If Indicated): Date CC: Ana Cai DO 15-Jul-2014 Carotid Duplex Ultrasound Result: Comments: See Note; NOTES: [facility] Cardiovascular Services [address] [place] [address] Carotid Duplex Ultrasound 07/10/14 0909 MR#: [id number] Acct: [id number] Dudley e: ORACIO ELIZALDE Rep #: [id number] : 1960 54 From: Robin Fabian MD Attending Dr: Ana Cai DO Status: REG CLI Ordering Dr: Ana Cai DO Date: 07/10/14 Location: [facility] Sex: M C Admitt ed: Rt. Velocities/BP [...] the left vertebral artery. Procedure Carotid Duplex 31099. The exam was diagnostic. Exam performed in department. Interp retation Summary Mild (<50%) stenosis right extracranial internal carotid. Mild (<50%) stenosis left extracranial internal carotid. Flow within the vertebral arteries is antegrade michelle aterally. Ordering Physician: Ana Cai Referring Physician: Lata Valle Performed By: SAMUEL Juan 07/15/14823 Date Robin Fabian MD CC: Ana Cai DO Da te Dictated: 07/10/14908 Date Transcribed: 07/15/14823 Blender Operator: Signed 15-Jul-2014 Carotid Duplex Ultrasound Result: Comments: See Note; NOTES: [facility] Cardiovascular Services [address] [place] [address] Carotid Duplex Ultrasound 07/10/14908 MR#: [id number] Acct: [id number] Dudley e: ORACIO ELIZALDE Rep #: [id number] : 1960 54 From: Robin Fabian MD Attending Dr: Ana Cai DO Status: REG CLI Ordering Dr: Ana Cai DO Date: 07/10/14 Location: [facility] Sex: M C Admitt ed: Rt. [...] the left vertebral artery. Procedure Carotid Duplex 12651. The exam was diagnostic. Exam performed in department. Interp retation Summary Mild (<50%) stenosis right extracranial internal carotid. Mild (<50%) stenosis left extracranial internal carotid. Flow within the vertebral arteries is antegrade michelle aterally. Ordering Physician: Ana Cai Referring Physician: Lata Valle Performed By: SAMUEL Juan 07/15/14823 Date Robin Fabian MD CC: Ana Hinton te Dictated: 07/10/14908 Date Transcribed: 07/15/14823 Blender Operator: Signed 26-Jan-2014 Knee 4 or More Views Result: Comments: See Note; NOTES: [facility] Imaging Services [address] [place] [address] Radiology Report MR#: [id number] Acct: [id number] Name: ORACIO ELIZALDE Rep #: [id number] : 1960 53 From: Cuauhtemoc Vo MD PCP: Ana Cai DO Status: REG CLI Study: Knee 4 or More Views Date of Exam: 01/26/14 Exam# [id number] Ordering Dr: Lata Valle MD ERIC DY: [...] Cuauhtemoc Vo MD at 13:17 EDT Tel [phone], Service support [phone], RAD/Knee 4 or More Views IM PRESSION: Degenerative arthrosis. Mild synovial thickening. Electronically Signed: Cuauhtemoc Vo MD at 13:17 EDT Tel [phone], Service support [phone], CC: Ana Cai DO; Lata Valle MD Blender Operator: Signed 26-Jan-2014 Knee 4 or More Views Result: Comments: See Note; NOTES: [facility] Imaging Services [address] [place] [address] Radiology Report MR#: [id number] Acct: [id number] Name: ORACIO ELIZALDE Rep #: [id number] : 1960 M 53 From: Cuauhtemoc Vo MD PCP: Ana Cai DO Status: REG CLI Study: Knee 4 or More Views Date of Exam: 01/26/14 Exam# [id number] Ordering Dr: Lata Valle MD ERIC DY: [...] Signed: Rosa Ambriz at 13:17 EDT Tel [phone], Service support [phone], RAD/Knee 4 or More Views IMPRESSION: Minimal synovial thickening. Electronically Sig la: Cuauhtemoc Vo MD at 13:17 EDT Tel [phone], Service support [phone], CC: Ana Cai DO; Lata Valle MD Blender Operator: Signed 29-Aug-2013 Sleep Study Report Result: Comments: See Note; NOTES: [facility] [address] [place] [address] Polysomnography with NCPAP MR#: [id number] Acct: [id number] Name: ANDRA ELIZALDE Rep #: [id number] : 1960 53 From: Westley Porter MD PCP: Ana Cai DO Status: REG CLI Ordering Dr.: Ana Cai DO Date: 08/21/13 Sex: M C SLEEP HISTORY: This is a CPAP titratio n study performed on this 53-year-old male with a body mass index of 28 and an Gleason Sleepiness Scale score of 12. He has [...] version). Please note that a reference to [facility] AHI in this report is consistent with the current Hypopnea definition according to Medicare Criteria and an AASM AHI refere nce is consistent with the current Hypopnea definition according to the AASM criteria. PROCEDURE: The study was attended continuously by a building services technician. Monitored parameters included left and r [...] Study Report Result: Comments: See Note; NOTES: [facility] [address] [place] [address] Polysomnography MR#: [id number] Acct: [id number] Name: ORACIO ELIZALDE Rep #: [id number] : 1960 53 From: Terrence Turner MD PCP: Ana Cia DO Status: REG CLI Ordering Dr.: Ana Cai DO Date: 08/01/13 Sex: M C REFERRING PHYSICIAN: Dr. Cai. SLEEP HISTORY: The patient is a 53-year-old gentleman with a calculated body mass index of 28 and an Gleason Sleepiness Scale score of 12/24. He has [...] version). Please note that a reference to [facility] AHI in this report is consistent with the current Hy popnea definition according to Medicare Criteria and an AASM AHI reference is consistent with the current Hypopnea definition according to the AASM criteria. PROCEDURE: The study was attended kai nuously by a building services technician. Monitored parameters included left and right [...] MD Co-signatu re (if applicable) Date Signed -Jul-2013 Chest PA and Lateral Result: Comments: See Note; NOTES: [facility] Imaging Services [address] [place] [address] Radiology Report MR#: [id number] Acct: [id number] Name: ORACIO ELIZALDE Chu Rep #: [id number] : 1960 M 53 From: Wesley Ramirez MD PCP: Ana Cai DO Status: REG CLI Study: Chest PA and Lateral Date of Exam: 08/05/13 Exam# [id number] Ordering Dr: Ana Cai DO STUDY: X-RA [...] at 13:55 EST , Service sup port [phone], CC: Ana Cai DO Blender Operator: Signed Immunization Name Dates Details Tdap (7 [...] smoker Vital Signs Date Test Result Details :32 Temperature 97.7 f Comments: Method: Temporal [...] 2.07 m2 Results Date Description Value Details :58 CBC W/Diff, Automated Comments: [facility] [address] [place], [place], [address] Absolute Lymph 1.59 {X10_3/ul} (Normal) Range: 0.83-4.51 [...] 4.6-6.2 WBC 5.9 K/mm3 (Normal) Range: 4.4-11.0 70-Mvb-442044:58 Comprehensive Metabolic Profil Comments: [facility] [address] [place], [address] GAP 9 (Normal) Range: 5-15 CO2 30.0 [...] Comments: Please note revised GLUCOSE reference range hsfnlbopq21/02/2018. 16-Gbz-76524:17 CBC W/Diff, Automated Comments: [facility] [address] [place], [place], [address] Absolute Lymph 1.70 {X10_3/ul} (Normal) Range: 0.83-4.51 [...] 4.6-6.2 WBC 5.8 K/mm3 (Normal) Range: 4.4-11.0 :17 Comprehensive Metabolic Profil Comments: [facility] [address] [place], [place], [address] GAP 5 (Normal) Range: 5-15 CO2 29.0 [...] A.D.A. criteria.Please note revised GLUCOSE reference range sfsrjakju94/02/2018. 17-Dec-20176:22 CBC W/Diff, Automated Comments: [facility] [address] [place], [place], [phone] ; review at 12/24 Absolute Lymph 1.33 [...] Range: 4.4-11.0 17-Dec-20176:22 Comprehensive Metabolic Profil Comments: [facility] [address] [place], [address] GAP 7 (Normal) Range: 5-15 CO2 29.0 [...] Comments: Please note revised GLUCOSE reference range atywoinut21/02/2018. 17-Dec-20176:22 Lipid Profile Comments: [facility] [address] [place], [address] VLDL 23 mg/dL (Normal) Range: 5-40 LDL [...] 200-240 mg/dL Borderline >240 mg/dL High Risk :22 PSA,Total - Annual Screen Comments: [facility] [address] [place], [place], [address] PSA,TOT SCREEN 0.85 ng/mL (Normal) Range: 0.00-4.00 Comments: This test was performed using the TPSA assay method for the[facility] chemistry system. Values obtained with differentassay methods cannot be used interchangably.When changing PSA assays in the course of monitoring apatient, additional sequential testing should be carriedout to confirm baseline values. :22 Thyroid Stim Hormone (TSH) Comments: [facility] [address] [place], [phone] TSH 1.13 {uIU/mL} (Normal) Range: 0.358-3.74 :56 CBC W/Diff, Automated Comments: [facility] [address] [place], [address] Absolute Lymph 1.48 {X10_3/ul} (Normal) Range: 0.83-4.51 [...] 4.6-6.2 WBC 6.3 K/mm3 (Normal) Range: 4.4-11.0 74-Bkg-121669:56 Comprehensive Metabolic Profil Comments: [facility] [address] [place], [place], [address] GAP 6 (Normal) Range: 5-15 CO2 29.0 mmol/L (Normal) Range: 21.0-32.0 CL 107 mmol/L (Normal) Range: 98-107 K 4.0 mmol/L (Normal) Range: 3.5-5.1 NA 142 mmol/L (Normal) Range: 136-145 T BILI 0.70 mg/dL (Normal) Range: 0.20-1.00 ALT 42 U/L (Normal) Range: 16-61 Comments: Please note revised ALT reference range tjjqaslvu39/28/2018. ALK P 59 U/L (Normal) Range: 45-117 [...] Comments: Please note revised GLUCOSE reference range ydjbgirzi85/02/2018. 71-Bba-38440:18 CBC W/Diff, Automated Comments: [facility] [address] [place], [place], [address] ; review 09/03 Absolute Lymph 1.62 {X10_3/ul} [...] 4.6-6.2 WBC 6.0 K/mm3 (Normal) Range: 4.4-11.0 03-Vjg-13949:18 Comprehensive Metabolic Profil Comments: [facility] [address] [place], [place], [address] GAP 6 (Normal) Range: 5-15 CO2 31.0 [...] 7-18 GLU 81 mg/dL (Normal) Range: 70-110 98-Ftm-44406:18 Lipid Profile Comments: [facility] [address] [place], [place], [address] VLDL 24 mg/dL (Normal) Range: 5-40 LDL [...] 200-240 mg/dL Borderline >240 mg/dL High Risk 26-Rjp-56451:18 Thyroid Stim Hormone (TSH) Comments: [facility] [address] [place], [address] TSH 0.81 {uIU/mL} (Normal) Range: 0.358-3.74 :10 CBC W/Diff, Automated Comments: [facility] [address] [place], [place], [phone] Absolute Lymph 1.62 {X10_3/ul} (Normal) Range: 0.83-4.51 [...] 4.6-6.2 WBC 7.0 K/mm3 (Normal) Range: 4.4-11.0 10-Bah-985698:10 Comprehensive Metabolic Profil Comments: [facility] [address] [place], [place], [address] GAP 7 (Normal) Range: 5-15 CO2 30.0 [...] 7-18 GLU 90 mg/dL (Normal) Range: 70-110 07-Lip-98497:09 CBC W/Diff, Automated Comments: [facility] [address] [place], [place], [address] ; will review at upcoming appt Absolute [...] 4.6-6.2 WBC 6.0 K/mm3 (Normal) Range: 4.4-11.0 56-Hcs-36026:09 Comprehensive Metabolic Profil Comments: [facility] [address] [place], [place], [address] GAP 7 (Normal) Range: 5-15 CO2 32.0 [...] 7-18 GLU 89 mg/dL (Normal) Range: 70-110 85-Nvw-31985:09 Hepatitis C Antibodies Comments: [facility] (refer to report for specific site)refer to report for address and phone number; will review on 05/28 HEP C AB <0.1 {s/co_ratio} (Normal) Range: 0.0-0.9 Comments: Negative: < 0.8 Indeterminate: 0.8 - 0.9 Positive: > 0.9 The CDC recommends that a positive HCV antibody result be followed up with a HCV Nucleic Acid Amplification test (292424).Performed at: [address] [id number] Director: Jose Francisco Coates PhD, Phone: [phone] Lipid Profile Comments: [facility] [address] [place], [address] VLDL 20 mg/dL (Normal) Range: [...] 200-240 mg/dL Borderline >240 mg/dL High Risk :09 Thyroid Stim Hormone (TSH) Comments: [facility] [address] [place], [phone] TSH 0.88 {uIU/mL} (Normal) Range: 0.358-3.74 :14 CBC W/Diff, Automated Comments: [facility] [address] [place], [id number] Absolute Lymph 1.50 {X10_3/ul} (Normal) Range: 0.83-4.51 [...] 4.6-6.2 WBC 7.8 K/mm3 (Normal) Range: 4.4-11.0 94-Hud-613718:14 Comprehensive Metabolic Profil Comments: [facility] [address] [place], [address] GAP 7 (Normal) Range: 5-15 CO2 28.0 [...] diff Comments: PATIENT NOT FASTINGPERFORMED BY: [facility] Ypbnni0331 [facility] [id number] Information: NURSE DRAW ([id number]) Immature Grans (Abs) 0.0 {x10E3/uL} (Normal) Range: [...] PANEL, COMPREHENSIVE Comments: PATIENT NOT FASTINGPERFORMED BY: [facility] [id number] ([id number]) ALT (SGPT) 52 [iU]/L (Abnormal) Range: 0-44 [...] Glucose, Serum 105 mg/dL (Abnormal) Range: 65-99 51-Avh-854177:11 CBC W/Diff, Automated Comments: DR VALLE ORDERED CMP CBCD ONLYDR VALLE ORDERED CMP CBCD [facility] [address] [place], [place], [address] Absolute Lymph 1.15 {X10_3/ul} (Normal) Range: 0.83-4.51 [...] 4.6-6.2 WBC 7.1 K/mm3 (Normal) Range: 4.4-11.0 38-Bed-480434:11 Comprehensive Metabolic Profil Comments: DR VALLE ORDERED CMP CBCD [facility] [address] [place], [place], [address] GAP 6 (Normal) Range: 5-15 CO2 30.0 [...] 7-18 GLU 101 mg/dL (Normal) Range: 70-110 22-Kwq-688090:11 CRP Comments: DR VALLE ORDERED [facility] CBCD [facility] [address] [place], [place], [address] C-REACTIVE PROT 4.36 mg/L (Abnormal) Range: 0.0-3.0 Comments: C-Reactive Protein (CRP) provides useful information for thediagnosis, therapy and monitoring of inflammatory processesand associated diseases. For the evaluation of Relative Riskfor Cardiovascular Dise ase, a High Sensitivity CRP (HSCRP)should be ordered. 93-Nif-414073:11 Free T3 Comments: DR VALLE ORDERED [facility] CBCD [facility] [address] [place], [place], [address] FREE T3 2.7 pg/mL (Normal) Range: 2.18-3.98 16-Kbg-870734:11 Lipid Profile Comments: DR VALLE ORDERED ST. [facility] CBCD [facility] [address] [place], [place], [id number] VLDL 15 mg/dL (Normal) Range: 5-40 LDL [...] - Annual Screen Comments: DR VALLE ORDERED [facility] CBCD [facility] [address] [place], [place], [id number] PSA,TOT SCREEN 0.89 ng/mL (Normal) Range: 0.00-4.00 Comments: This test was performed using the TPSA assay method for the[employer] OTR chemistry system. Values obtained with differentassay methods cannot be used interchangably.When changing PSA assays in the course of monitoring apatient, additional sequential testing should be carriedout to confirm baseline values. :11 T4 Free Direct Comments: DR VALLE ORDERED CMP CBCD [facility] Sygikbtzqx6959 [facility] [address] [place], [address] T4 FREE DIRECT 1.08 ng/dL (Normal) Range: 0.76-1.46 :11 Thyroid Stim Hormone (TSH) Comments: DR VALLE ORDERED CMP CBCD [facility] Ycbwaayexp9594 [facility] [place], [address] TSH 0.36 {uIU/mL} (Normal) Range: 0.358-3.74 :44 CBC W/Diff, Automated Comments: [facility] Sbwvsumxmw5690 [facility] [address] [place], [id number] Absolute Lymph 1.41 {X10_3/ul} (Normal) Range: 0.83-4.51 [...] 4.6-6.2 WBC 6.6 K/mm3 (Normal) Range: 4.4-11.0 00-Hgz-531356:44 Comprehensive Metabolic Profil Comments: T3F T4F TSHDR.LEONARD CMP [facility] Rpuyanjnvw2064 [facility] [place], [address] GAP 6 (Normal) Range: 5-15 CO2 30.0 [...] 7-18 GLU 91 mg/dL (Normal) Range: 70-110 90-Ezs-754913:44 Free T3 Comments: T3F T4F TSHDR.[facility] D[address]zlq[address] [place], [place], [address] FREE T3 2.6 pg/mL (Normal) Range: 2.18-3.98 :44 T4 Free Direct Comments: T3F T4F TSHDR.[facility] [address] [place], [place], [address] T4 FREE DIRECT 1.04 ng/dL (Normal) Range: 0.76-1.46 49-Isu-247823:44 Thyroid Stim Hormone (TSH) Comments: T3F T4F TSHDR.[facility] Ytstdibcxa5418 [facility] [place], [address] TSH 0.26 {uIU/mL} (Abnormal) Range: 0.358-3.74 :13 CBC W/Diff, Automated Comments: [facility] [address] [place], [address] ; apt next week Absolute Lymph 1.59 [...] Range: 4.4-11.0 18-Jul-20166:13 Comprehensive Metabolic Profil Comments: [facility] [address] [place], [address] GAP 1 (Abnormal) Range: 5-15 CO2 33.0 [...] 70-110 :13 CRP, High Sensitivity Cardiac Comments: [facility] Ffjwsrcoca4323 [facility] [place], [address] CRP HIGH SENS 2.19 mg/L (Normal) Comments: Low Relative Risk of CVD <1.0 mg/L Average Relative Risk of CVD 1.0 - 3.0 mg/L High Relative Risk of CVD >3.0 mg/L :13 Lipid Profile Comments: [facility] Dsqemblcrl4895 [facility] [place], [address] VLDL 23 mg/dL (Normal) Range: 5-40 LDL [...] High Risk :13 Vitamin D,25 Hydroxy Comments: [facility] Xfjeeikuod6961 [facility] [place], [address] Vitamin D 25-OH 31.7 ng/mL (Normal) Comments: Vitamin D 25(OH) Status Range Deficiency <20 ng/mL (50nmol/L) Insuffciency 20 - 30 ng/mL (50 - 75 nmol/L) Sufficiency 30 - 100 ng/mL (75 - 250 nmol/L) Toxicity >100 ng/mL (>250 nmol/L); ADDENDA: normal and has apt next week 17-Hnl-649704:07 Free T3 Comments: [facility] [address]xej[address] [place], [place], [phone] FREE T3 2.4 pg/mL (Normal) Range: 2.18-3.98 51-Xsp-834729:07 T4 Free Direct Comments: [facility] Aictcdbebx3050 [facility] [address] [place], [place], [address] T4 FREE DIRECT 1.16 ng/dL (Normal) Range: 0.76-1.46 47-Ksm-265164:07 Thyroid Stim Hormone (TSH) Comments: [facility] [address]cf[address] [place], [place], [phone] TSH 0.16 {uIU/mL} (Abnormal) Range: 0.358-3.74 :20 Urine Drug Screen neg for everything (Office - Urine Drug (Normal) Screen 11 Panel) (57204) :13 CBC W/Diff, Automated Comments: LIPID IS FOR DR. Aparicio [facility] Hwcazulyyn[address] [place], [place], [address] Absolute Lymph 1.31 {X10_3/ul} (Normal) Range: 0.83-4.51 [...] 4.6-6.2 WBC 7.0 K/mm3 (Normal) Range: 4.4-11.0 87-Eex-92738:13 Comprehensive Metabolic Profil Comments: LIPID [facility] Wgydcruuiz7[address] [place], [place], [address] GAP 6 (Normal) Range: 5-15 CO2 29.0 [...] Lipid Profile Comments: LIPID IS FOR [facility]. [facility]union [facility] hospital[facility] R[address]ounzsin[address] [place], [address] VLDL 21 mg/dL (Normal) Range: 5-40 LDL [...] Borderline >240 mg/dL High Risk :59 TSH (03298) Comments: PATIENT NOT FASTINGPERFORMED BY: [facility] Ucszhz1629 [facility] [id number] TSH 0.250 {uIU/mL} (Abnormal) Range: 0.450-4.500 50-Gfi-494387:59 CALCIUM, IONIZED (83278) Comments: PATIENT NOT FASTINGPERFORMED BY: CB [facility] Fjwmsw1955 [facility] [id number] Calcium, Ionized, Serum 5.3 mg/dL (Normal) Range: 4.5-5.6 :59 PHOSPHORUS (35193) Comments: PATIENT NOT FASTINGPERFORMED BY: Heyday [facility] Cnyjun8161 [facility] [id number] Phosphorus, Serum 4.1 mg/dL (Normal) Range: 2.5-4.5 :59 PARATHORMONE (46486) Comments: PATIENT NOT FASTINGPERFORMED BY: [facility]6370 [facility] [id number] PTH, Intact 29 pg/mL (Normal) Range: 15-65 :59 VITAMIN B-12 (CYANOCOBALAMIN) Comments: PATIENT NOT FASTINGPERFORMED BY: [address] [id number] (38234) Vitamin B12 793 pg/mL (Normal) Range: 211-946 :59 Anti-TPO Antibody (13263) Comments: PATIENT NOT FASTINGPERFORMED BY: [facility]6370 [facility] [id number] Thyroid Peroxidase (TPO) Ab 8 {IU/mL} (Normal) Range: 0-34 :59 T4, FREE (THYROXINE) Comments: PATIENT NOT FASTINGPERFORMED BY: [place] 5205170 [facility] [id number] Information: [id number] (19698) T4,Free(Direct) 1.44 ng/dL (Normal) Range: 0.82-1.77 :59 T3, FREE (TRIDOTHYRONINE) (01647) Comments: PATIENT NOT FASTINGPERFORMED BY: [facility]6370 [facility] [id number] Triiodothyronine,Free,Serum 3.1 pg/mL (Normal) Range: 2.0-4.4 :13 CBC W/Diff, Automated Comments: CBCD IS FOR [facility] [address]sfxs[address] [place], [place], [address] ; ordered by maco Absolute Lymph 0.96 [...] 4.6-6.2 WBC 6.8 K/mm3 (Normal) Range: 4.4-11.0 65-Mmw-58943:13 Comprehensive Metabolic Profil Comments: LIPID,CMP,TSH ARE FOR AND CMP AND CBCD ARE FOR ian [facility] Zep[address]icklx39[address] [place], [place], [address] GAP 4 (Abnormal) Range: 5-15 CO2 31.0 [...] FOR AND CMP AND CBCD ARE FOR [facility] [address] [place] [address], [phone] VLDL 19 mg/dL (Normal) Range: 5-40 LDL [...] Stim Hormone (TSH) Comments: LIPID,CMP,TSH ARE FOR DR.FAST AND CMP AND CBCD ARE FOR ian [facility] [address] [place], [address] TSH 0.61 {uIU/mL} (Normal) Range: 0.358-3.74 :22 Rapid Flu (20063 x 2) Comments: neg Influenza A Ag negative (Normal) : Jacy Osei CMP14 SPRCS (Normal) Comments: PATIENT WAS FASTINGPERFORMED BY: DERIK [facility] Wuawog1977 [facility] [id number] 17 Default Comments: A hand-written panel/profile was received from your office. Inaccordance with the [facility] Ambiguous Test Code Policy dated February2003, we have completed your order by using the closest currentlyor formerl y recognized AMA panel. We have assigned ComprehensiveMetabolic Panel (14), Test Code #990427 to this request. If thisis not the testing you wished to receive on this specimen, pleasecontact the [facility] Inquiry/Technical Services Departmentto clarify the test order. We appreciate your business. : Jacy Osei LP SPRCS (Normal) Comments: PATIENT WAS FASTINGPERFORMED BY: [employer] Oxcxco6135 [facility] [id number] 17 Default Comments: A hand-written panel/profile was received from your office. Inaccordance with the [facility] Ambiguous Test Code Policy dated February2003, we have completed your order by using the closest currentlyor formerl y recognized AMA panel. We have assigned Lipid Panel,Test Code #875613 to this request. If this is not the testing youwished to receive on this specimen, please contact the [facility] Inquiry/Techni burak Services Department to clarify the testorder. We appreciate your business. :17 Comp. Metabolic Panel (14) Comments: PATIENT WAS FASTINGPERFORMED BY: X-[facility]OMclaren [facility]6370 [facility] [id number] ALT (SGPT) 21 [iU]/L (Normal) Range: 0-44 [...] Lipid Panel Comments: PATIENT WAS FASTINGPERFORMED BY: [facility] [id number]; non-emergent till apt LDL Cholesterol Calc 95 mg/dL (Normal) Range: 0-99 VLDL Cholesterol Burak 21 mg/dL (Normal) Range: 5-40 HDL Cholesterol 33 mg/dL (Abnormal) Comments: According to ATP-III Guidelines, HDL-C >59 mg/dL is considered anegative risk factor for CHD. Triglycerides 107 mg/dL (Normal) Range: 0-149 Cholesterol, Total 149 mg/dL (Normal) Range: 100-199 :17 Prostate-Specific Ag, Serum Comments: PATIENT WAS FASTINGPERFORMED BY: [employer]70 [facility]HandleAt[facility] [id number] Prostate Specific Ag, 1.0 ng/mL (Normal) Range: 0.0-4.0 Serum Comments: Zachary ECLIA methodology. .According to the [place] [employer], Serum PSA shoulddecrease and remain at undetectable levels after radicalprostatectomy. The AUA defines biochemical recurrence as an initialPSA value 0.2 ng/mL or greater followed by a subsequent confirmatoryPSA value 0.2 ng/mL or greater.Values obtained with d ifferent assay methods or kits cannot be usedinterchangeably. Results cannot be interpreted as absolute evidenceof the presence or absence of malignant disease. 61-Scx-618363:57 CBC W/Diff, Automated Comments: Test performed at:[facility] [address]us[address] [place] [address] Absolute Lymph 1.54 {X10_3/ul} (Normal) [...] :57 Comprehensive Metabolic Profil Comments: Test performed at:[facility] Uosajsuajx3530 [facility] [place], [place] [address] GAP 7 (Normal) Range: 5-15 CO2 29.0 [...] 7-18 GLU 81 mg/dL (Normal) Range: 70-110 :58 CBC W/Diff, Automated Comments: Test performed at:[facility] Kdsrlsirci6122 [facility] [place] [address] Absolute Lymph 1.35 {X10_3/ul} (Normal) [...] 4.6-6.2 WBC 6.9 K/mm3 (Normal) Range: 4.4-11.0 55-Cfb-790573:58 Comprehensive Metabolic Profil Comments: Test performed at:[facility] Dprrssclhz[address] [place], [place] [address] GAP 7 (Normal) Range: 5-15 CO2 29.0 [...] 7-18 GLU 82 mg/dL (Normal) Range: 70-110 93-Qmw-50896:27 CBC W/Diff, Automated Comments: Test performed at:[facility] Rtskrrphmr6152 [place], [place] [address] Absolute Lymph 1.27 {X10_3/ul} (Normal) Range: 0.83-4.51 [...] DR VALLE ORDERED CMP ABD CBCTest performed at:[facility] Egnjirnltg9697 [facility] [place] [address] GAP 5 (Normal) Range: 5-15 [...] DR VALLE ORDERED CMP ABD CBCTest performed at:[facility] Uapsimkvnf5113 [facility] [place] [address] VLDL 17 mg/dL (Normal) Range: [...] 200-240 mg/dL Borderline >240 mg/dL High Risk 80-Jva-748663:25 Crystals, Body Fluid Comments: Comments: ArthrocentesisComments: ArthrocentesisTest performed at:[facility] Bbyqhhymzz3188 [facility] [place] [address] PATH REV May foll (Normal) SOURCE/BF SYNOVIAL (Normal) CRYSTALS/BF Absent (Normal) 35-Cvo-635517:25 Glucose, Body Fluid Comments: Comments: ArthrocentesisTest performed at:[facility] Cqttfmdsah0165 [facility] [place] [address] GLU,BF 10 mg/dL (Normal) 94-Hbg-642654:25 Protein, Body Fluid Comments: Comments: ArthrocentesisTest performed at:[facility] Hqisfxqeza3790 [facility] [place] [address] PROTEIN,BF 4.0 g/dL (Normal) 87-Bkm-46645:29 CMP GAP 5 (Normal) Range: 5-15 CO2 [...] CHOL 117 mg/dL (Normal) Comments: <200 mg/dL Idkwmofas216-698 mg/dL Borderline>240 mg/dL High Risk :20 PSA 1.02 ng/mL (Normal) Range: 0.00-4.00 Comments: This test was performed using the TPSA assay method for [employer] chemistry system. Values obtained with differentassay methods cannot be used interchangably.When changing PSA assays in the course of monitoring apatient, additional sequential testing should be carriedout to confirm baseline values. 13-Lln-591047:02 CBCD ALC 1.41 {X10_3/ul} (Normal) Range: 0.83-4.51 [...] 4.6-6.2 WBC 5.7 K/mm3 (Normal) Range: 4.4-11.0 20-Sse-495161:02 CMP GAP 4 (Abnormal) Range: 5-15 CO2 [...] 7-18 GLU 93 mg/dL (Normal) Range: 70-110 57-Twx-321392:08 CBCD ALC 0.86 {X10_3/ul} (Normal) Range: 0.83-4.51 [...] 4.6-6.2 WBC 5.2 K/mm3 (Normal) Range: 4.4-11.0 95-Nxx-854743:08 CMP GAP 4 (Abnormal) Range: 5-15 CO2 [...] CHOL 109 mg/dL (Normal) Comments: <200 mg/dL Qmtpeqhqh703-091 mg/dL Borderline>240 mg/dL High Risk 17-Jul-20139:13 DANIELLE CULTURE-OTHER (48352) Comments: PATIENT NOT FASTINGPERFORMED BY: LabCoSt. Joseph's Regional Medical CenterKqeada0047 [facility] [id number] Information: SRC:GURWINDER [id number] Result 1 RRF (Normal) Comments: Routine respiratory kaden Upper Respiratory Culture Final report (Normal) 9-Ukm-819410:27 Rapid Strep Test, Office (76632) Rapid Strep Test, Office Negative (Normal) 93-Itj-05346:12 CMP GAP 5 (Normal) Range: 5-15 CO2 [...] CHOL 149 mg/dL (Normal) Comments: <200 mg/dL Uevldxxic577-348 mg/dL Borderline>240 mg/dL High Risk :29 CBCD [...] CHOL 143 mg/dL (Normal) Comments: <200 mg/dL Alopjtzka565-934 mg/dL Borderline>240 mg/dL High Risk TRIG 66 mg/dL (Normal) Comments: Serum Triglycerides Reference IntervalNormal <150 mg/dLBorderline high 150 - 199 mg/dLHigh 200 - 499 mg/ dLVery High > or = 500 mg/dL :58 CA 8.7 mg/dL (Normal) Range: 8.5-10.1 28-Pcp-247427:58 PHOS 2.8 mg/dL (Normal) Range: 2.5-4.9 :58 PTHIN 43 pg/mL (Normal) Range: 14-72 :58 TSH 0.49 {uIU/mL} (Normal) Range: 0.358-3.74 :58 VITD 33.8 ng/mL (Normal) Range: 30.0-100.0 Comments: Vitamin D deficiency has been defined by the [place] of[place] and an Endocrine Society practice guideline as alevel of serum 25-OH vitamin D less than 20 ng/mL (1,2).The Endocrine Society went on to further define vitamin Dinsufficiency as a level between 21 and 29 ng/mL (2).1. IOM ([place] [employer]). 2010. Dietary reference intakes for calcium and D. Dom[place]: The National Academies Press.2. Melanie MF, Evans [place], Lora CRONIN, et al. Evaluation, treatment, and prevention of vitamin D deficiency: an Endocrine Society clinical practice guideline. JCEM. 2010; 96(7): 1911-30.Performed at: [facility] Lab[address] [id number] Director: Abdi Navarrete PhD, Phone: [phone] 30-Bzk-29748:25 CBCD Comments: DR CAI ORDERED CMP LIPIDDR [...] 7-18 GLU 90 mg/dL (Normal) Range: 70-110 :25 LIPID Comments: DR CAI ORDERED CMP LIPIDDR [...] Very High > or = 500 mg/dL 1-Kvj-089578:36 CBCMD Comments: DR VALLE ORDERED CMP CBCDDR [...] Please note: Revised HEMOGLOBIN REFERENCE RANGES Reference [facility] effective 03/13/12.Please note: Revised HEMOGLOBIN REFERENCE RANGES Reference [facility] effective 03/13/12. RBC 4.86 {M/mm3} (Normal) Range: 4.6-6.2 WBC 6.3 K/mm3 (Normal) Range: 4.4-11.0 7-Jjh-220993:36 CMP Comments: DR VALLE ORDERED CMP CBCDDR [...] 7-18 GLU 93 mg/dL (Normal) Range: 70-110 3-Ndf-548219:36 LIPID Comments: DR VALLE ORDERED CMP CBCDDR [...] 200-240 mg/dL Borderline >240 mg/dL High Risk 9-Hsp-495074:36 PSA 0.99 ng/mL (Normal) Comments: DR VALLE ORDERED CMP CBCDDR FAST ORDERED CMP PSA CBCMD LIPID Range: 0.00-4.00 Comments: NEW TEST ASSAY METHOD JANUARY 01, 2012This test was performed using the TPSA assay method for the[employer] OTR chemistry system. Values obtained with differentassay methods cannot be used interchangably.When ch anging PSA assays in the course of monitoring apatient, additional sequential testing should be carriedout to confirm baseline values. 39-Cdo-628313:09 CBCD Comments: ORDERED LIPID CMPDR. LEONARD ORDERED CMP CBCD VITD ANC 4.0 3/uL [...] 4.6-6.2 WBC 5.9 K/mm3 (Normal) Range: 4.4-11.0 42-Fmo-597064:09 CMP Comments: ORDERED LIPID CMPDRShahla VALLE ORDERED [...] 0.8-1.3 GLU 89 mg/dL (Normal) Range: 70-110 20-Gue-774528:09 LIPID Comments: ORDERED LIPID CMPDR. LEONARD ORDERED [...] 200-240 mg/dL Borderline >240 mg/dL High Risk 55-Mhi-938084:09 VITD 40.4 ng/mL (Normal) Comments: ORDERED LIPID CMPDRShahla VALLE ORDERED CMP CBCD VITD Range: 30.0-100.0 Comments: Vitamin D deficiency has been defined by the [place] [employer] and an Endocrine Society practice guideline as alevel of serum 25-OH vitamin D less than 20 ng/mL (1,2).The Endocrine Society went on to further define vitamin Dinsufficiency as a level between 21 and 29 ng/mL (2).1. IOM ([place]). 2010. Dietary reference intakes for calcium and D. [place]: The National Academies Press.2. Melanie MF, [place], Lora CRONIN, et al. Evaluation, treatment, and prevention of vitamin D deficiency: an Endocrine Society clinical practice guideline. JCEM. 2010; 96(7): 1911-30. .Effective October 16, 2011, Vitamin D, 25 Hydroxy specimen requirements will change to serum only.Performed at: [address] [id number] Director: Mirna Gan MD, Phone: [phone] :26 CBCD Comments: DR CAI ORDERED LIPID,LIVERDR LEONARD [...] 0.24 mg/dL (Normal) Comments: DR CAI ORDERED LIPID,ASHA VALLE ORDERED CMP,CBCD Range: 0.00-0.30 :26 LIPID Comments: DR CAI ORDERED LIPID,ASHA VALLE ORDERED CMP,CBCD HDL 29 mg/dL (Abnormal) Comments: [...] PERFORMED FROM THISSPECIMEN. PHYSICIAN ORDER REQUIRED. CALL [facility] FORTHIS REFLEX TESTING. [phone] :[phone] ANEX PANEL LESSON INSTRUCTOR AB 47 AU/mL (Normal) ANTI-COOK AB 12 AU/mL (Normal) :15 ANTI JO1 ANTI KATERIN 21 AU/mL (Normal) :15 ANTI SCL 70 ANTI-SCL 70 15 AU/mL (Normal) :15 ANTI-CCP 254383 3 {units} (Normal) Range: 0-19 Comments: Negative [...] 1.002-1.030 COLOR YELLOW (Normal) :15 HB CORE [id number] SeeNote (Normal) Comments: Result: Negative Performed at: [facility]6370 [place], [place] [id number] Director: Mirna Gan MD, Phone: [phone] at: - [facility] [address] [id number] Director: Terrence Moreno MD, Phone: [phone] at: 2Q - [facility]1440 [place], [place] [id number] Director: Viral Maya PhD, Phone: [phone] : HBsAg 6510 HB SURF AG 6510 SeeNote [...] of antibody present. : HEP C AB 868377 <0.1 (Normal) Range: 0.0-0.9 Comments: Negative: < 0.8 Indeterminate 0.8 - 0.9 Positive: > 0.9 . In order to reduce the incidence of a false positive result, the CDC recommends that all s/co ratios between 1.0 and 10.9 be confirmed with additional RIBA or PCR testing. :15 HLA B27 6924 HLA B27 SeeNote (Normal) [...] mg/dL (Normal) UR CREAT 17.0 mg/dL (Normal) :15 SJOGREN'S SSA 229 AU/mL (Abnormal) :15 SJOGRENS SSB SJOGREN'S SSB 18 AU/mL (Normal) :15 VIT D,25 60363 46.3 ng/mL (Normal) Range: 32.0-100.0 Comments: Recent studies consider the lower limit of 32.0 ng/mL to nicanor threshold for optimal health.Aleks [place]IS. J Nutr. 2004;135(2):317-22. :17 AMANDEEP DIR SEMI-QL AMANDEEP DIRECT 261 AU/mL (Abnormal) Comments: REFLEX AMANDEEP PANEL TESTING CAN BE PERFORMED FROM THISSPECIMEN. PHYSICIAN ORDER REQUIRED. CALL [facility] FORTHIS REFLEX TESTING. [phone] :17 ANTI-dsDNA AB 9 {IU/mL} (Normal) :17 C-REACTIVE PROT < 2.90 mg/L (Normal) Range: 0.0-3.0 Comments: C-Reactive Protein (CRP) provides useful information for thediagnosis, therapy and monitoring of inflammatory processesand associated diseases. For the evaluation of Relative Riskfor Cardiovascular Dise ase, a High Sensitivity CRP (HSCRP)should be ordered. :17 CBCD,SMEAR DIFF CELLS COUNTED 100 (Normal) EOS [...] 11.6-14.6 WBC 6.0 K/mm3 (Normal) Range: 4.4-11.0 99-Yse-707502:17 COMP METABOLIC GAP 4 (Abnormal) Range: 5-15 [...] T PROT 6.6 g/dL (Normal) Range: 6.4-8.2 55-Cxf-721920:17 COMPLETE UA BACTERIA 0 SEEN {/hpf} (Normal) [...] 1.0 CLARITY CLEAR (Normal) COLOR YELLOW (Normal) 84-Fye-373632:17 ESR SED RATE 1 mm/h (Normal) Range: 0-20 25-Aba-580002:17 LIPID HDL 28 mg/dL (Abnormal) Comments: Reference [...] CHOL 191 mg/dL (Normal) Comments: <200 mg/dL Bsaawqgrw227-283 mg/dL Borderline>240 mg/dL High Risk 53-Ghx-495640:17 PSA, SCREEN 0.6 ng/mL (Normal) Range: 0.0-4.0 08-Zix-327335:17 RHEUMATOID FAC < 10.0 {IU/mL} (Normal) Plan of Care Name Dates Details Instructions Anxiety : Eprescribed prescriptions (G8553) Indication: Anxiety [...] Wt loss Indication: Other hyperlipidemia Planned Observations CBC with auto diff (05877)Indication: Other hyperlipidemia On: 85-Lbm-701126:14 Request METABOLIC PANEL, COMPREHENSIVE (19979)Indication: Other hyperlipidemia On: 74-Ala-456203:14 Request TSH (76967)Indication: Hyperthyroidism On: :04 Request METABOLIC PANEL, COMPREHENSIVE (13009)Indication: Other hyperlipidemia On: 96-Ajj-966929:04 Request LIPID PANEL (80324)Indication: Other hyperlipidemia On: :04 Request Urine Drug Screen -Medicare (Office - Urine Drug Screen 9 Panel) (01515)Indication: Attention deficit disorder of adult On: 57-Wyw-222457:46 Request Comments: appropriate results positive for amphetamine CBC W/AUTO DIFF WBC (21478)Indication: Memory loss On: :08 Request METABOLIC PANEL, COMPREHENSIVE (21421)Indication: Memory loss On: :08 Request LIPID PANEL (26691)Indication: Other hyperlipidemia On: :08 Request TSH (10204)Indication: Hyperthyroidism On: 47-Wwi-966449:07 Request PSA (PROSTATE SPECIFIC ANTIGEN) (V76.44)Indication: Encounter for screening for malignant neoplasm of prostate (Renamed from Screening for prostate cancer) On: :01 Request HEPATITIS C ANTIBODY (76498)Indication: Liver function abnormality On: 4-Izc-552573:18 Request CBC W/AUTO DIFF WBC (76978)Indication: Liver function abnormality On: 60-Dee-545893:00 Request TSH (36615)Indication: Hyperthyroidism On: 97-Ads-272063:59 Request METABOLIC PANEL, COMPREHENSIVE (81479)Indication: Liver function abnormality On: 84-Nga-783163:58 Request LIPID PANEL (86012)Indication: Other hyperlipidemia On: 38-Rea-408988:58 Request METABOLIC PANEL, COMPREHENSIVE (23141)Indication: Liver function abnormality On: 67-Ver-598969:09 Request CBC W/AUTO DIFF WBC (90595)Indication: Anxiety On: :41 Request LIPID PANEL (75774)Indication: Other hyperlipidemia On: :30 Request TSH (55408)Indication: Hyperthyroidism On: :29 Request HEPATITIS C ANTIBODY (73151)Indication: Encounter for hepatitis C virus screening test for high risk patient On: 14-Agm-43813:44 Request CBC W/AUTO DIFF WBC (98176)Indication: Abnormal C-reactive protein On: 6-Ygt-629408:16 Request METABOLIC PANEL, COMPREHENSIVE (40089)Indication: Other hyperlipidemia On: :15 Request LIPID PANEL (82135)Indication: Other hyperlipidemia On: :15 Request C-REACT PROT HIGH SENS(hsCRP) (23076)Indication: Abnormal C-reactive protein On: : Request PSA (PROSTATE SPECIFIC ANTIGEN) (V76.44)Indication: Encounter for screening for malignant neoplasm of prostate (Renamed from Screening for prostate cancer) On: :16 Request CBC with auto diff (23212)Indication: Memory loss On: :14 Request METABOLIC PANEL, COMPREHENSIVE (57051)Indication: Memory loss On: :14 Request T4, FREE (THYROXINE) (03179)Indication: Hyperthyroidism On: :14 Request T3, FREE (TRIDOTHYRONINE) (91416)Indication: Hyperthyroidism On: :14 Request C-REACT PROT HIGH SENS(hsCRP) (18804)Indication: Abnormal C-reactive protein On: :14 Request LIPID PANEL (83148)Indication: Other hyperlipidemia On: : Request TSH (12657)Indication: Hyperthyroidism On: : Request T4, FREE (THYROXINE) (54873)Indication: Hyperthyroidism On: : Request T3, FREE (TRIDOTHYRONINE) (32856)Indication: Hyperthyroidism On: : Request TSH (22221)Indication: Hyperthyroidism On: :13 Request Vitamin D Hydroxy (97895)Indication: Memory loss On: : Request CBC W/AUTO DIFF WBC (43553)Indication: Other hyperlipidemia On: : Request LIPID PANEL (56071)Indication: Other hyperlipidemia On: Request METABOLIC PANEL, COMPREHENSIVE (92548)Indication: Other hyperlipidemia On: : Request C-REACT PROT HIGH SENS(hsCRP) (41237)Indication: Abnormal C-reactive protein On: : Request T4, FREE (THYROXINE) (32211)Indication: Abnormal TSH On: 8-Hbg-881236:16 Request T3, FREE (TRIDOTHYRONINE) (76810)Indication: Abnormal TSH On: 6-Vts-477844:16 Request TSH (77211)Indication: Abnormal TSH On: 3-Gil-342100:16 Request CBC W/AUTO DIFF WBC (10236)Indication: Gastroesophageal reflux disease without esophagitis On: :45 Request METABOLIC PANEL, COMPREHENSIVE (66667)Indication: Other hyperlipidemia On: :45 Request LIPID PANEL (20080)Indication: Other hyperlipidemia On: :44 Request CALCIUM SERUM (89818)Indication: Hypocalcemia On: :00 Request PHOSPHORUS (45343)Indication: Hypocalcemia On: :59 Request PARATHORMONE (70905)Indication: Hypocalcemia On: :59 Request Vitamin D Hydroxy (32501)Indication: Hypocalcemia On: :59 Request TSH (23292)Indication: Anxiety On: 19-Xvh-884656:38 Request METABOLIC PANEL, COMPREHENSIVE (33993)Indication: Other hyperlipidemia On: :38 Request LIPID PANEL (13625)Indication: Other hyperlipidemia On: 98-Tsc-530399:33 Request BACT CULTURE ANY-ANAEROBIC (02820)Indication: Sore throat and laryngitis On: 07-Mjk-713888:49 Request Rapid Strep Test, Office (21548)Indication: Sore throat and laryngitis On: 84-Spd-887281:48 Request Rapid Flu (79593 x 2)Indication: Fever and chills On: 66-Rif-140043:48 Request PSA (PROSTATE SPECIFIC ANTIGEN) (V76.44)Indication: Screening for prostate cancer On: :03 Request METABOLIC PANEL, COMPREHENSIVE (80398)Indication: Other hyperlipidemia On: :03 Request LIPID PANEL (17413)Indication: Other hyperlipidemia On: 7-Eii-009415:03 Request CBC W/AUTO DIFF WBC (21737)Indication: Elevated blood-pressure reading without diagnosis of hypertension On: :40 Request METABOLIC PANEL, COMPREHENSIVE (73702)Indication: Elevated blood-pressure reading without diagnosis of hypertension On: :40 Request LIPID PANEL (04189)Indication: Other hyperlipidemia On: :40 Request PSA (PROSTATE SPECIFIC ANTIGEN) (V76.44)Indication: screening On: 7-Ndq-855731:31 Request METABOLIC PANEL, COMPREHENSIVE (55667)Indication: Other hyperlipidemia On: 5-Tbc-131763:30 Request LIPID PANEL (43491)Indication: Other hyperlipidemia On: 2-Ysj-011002:29 Request METABOLIC PANEL, COMPREHENSIVE (59716)Indication: Other hyperlipidemia On: 4-Enc-496704:56 Request PSA (PROSTATE SPECIFIC ANTIGEN) (05462)Indication: Screening for prostate cancer On: 8-Amb-317627:28 Request PSA (PROSTATE SPECIFIC ANTIGEN) (V76.44)Indication: Screening for prostate cancer On: :25 Request METABOLIC PANEL, COMPREHENSIVE (41553)Indication: Anxiety On: 07-Pqs-247669:25 Request LIPID PANEL (65275)Indication: Other hyperlipidemia On: 80-Wve-498872:00 Request HEPATIC FUNCTION PANEL ([id number])Indication: Other hyperlipidemia On: 78-Mda-760108:00 Request METABOLIC PANEL, COMPREHENSIVE (49141)Indication: Other hyperlipidemia On: 50-Crb-131345:32 Request LIPID PANEL (72150)Indication: Other hyperlipidemia On: :31 Request METABOLIC PANEL, COMPREHENSIVE (96329)Indication: Elevated blood-pressure reading without diagnosis of hypertension On: 62-Xkf-048934:23 Request LIPID PANEL (10288)Indication: Other hyperlipidemia On: 05-Vkj-495280:23 Request CALCIUM SERUM (18707)Indication: Hypocalcemia On: 58-Fmh-012274:30 Request PARATHORMONE (79080)Indication: Hypocalcemia On: 66-Kpa-647349:30 Request PHOSPHORUS (73750)Indication: Hypocalcemia On: 47-Xkc-060270:29 Request TSH (60384)Indication: Hypocalcemia On: :29 Request Vitamin D Hydroxy (56277)Indication: Hypocalcemia On: 00-Ilm-546824:29 Request LIPID PANEL (92847)Indication: Other hyperlipidemia On: :44 Request METABOLIC PANEL, COMPREHENSIVE (67722)Indication: Other hyperlipidemia On: :44 Request PSA (PROSTATE SPECIFIC ANTIGEN) (V76.44)Indication: Screening for prostate cancer On: :09 Request LIPID PANEL (43714)Indication: Other hyperlipidemia On: :08 Request CBC WITH MANUAL DIFF ([id number])Indication: Elevated blood-pressure reading without diagnosis of hypertension On: :08 Request METABOLIC PANEL, COMPREHENSIVE ([id number])Indication: Elevated blood-pressure reading without diagnosis of hypertension On: :08 Request METABOLIC PANEL, COMPREHENSIVE (85907)Indication: Anxiety On: :46 Request LIPID PANEL (55788)Indication: Other hyperlipidemia On: :46 Request PSA (PROSTATE SPECIFIC ANTIGEN) (V76.44)Indication: Screening for prostate cancer On: : Request HEPATIC FUNCTION PANEL (10965)Indication: Other hyperlipidemia On: : Request LIPID PANEL (30512)Indication: Other hyperlipidemia On: : Request PSA (PROSTATE SPECIFIC ANTIGEN) (V76.44)Indication: Screening for prostate cancer On: 6-Zjt-264063:11 Request HEPATIC FUNCTION PANEL (16352)Indication: Other hyperlipidemia On: 2-Uxc-509007:10 Request LIPID PANEL (22191)Indication: Other hyperlipidemia On: 0-Bvp-902848:10 Request HEPATIC FUNCTION PANEL (60802)Indication: Other hyperlipidemia On: :04 Request LIPID PANEL (82715)Indication: Other hyperlipidemia On: 65-Amw-043643:04 Request PSA (PROSTATE SPECIFIC ANTIGEN) (V76.44)Indication: Screening for prostate cancer On: 3-Qzj-014684:55 Request URINALYSIS, W/ MICRO (55702)Indication: Osteoarthritis, unspecified osteoarthritis type, unspecified site On: 2-Pab-915145:55 Request METABOLIC PANEL, COMPREHENSIVE (95366)Indication: Osteoarthritis, unspecified osteoarthritis type, unspecified site On: :54 Request CBC WITH MANUAL DIFF (27855)Indication: Osteoarthritis, unspecified osteoarthritis type, unspecified site On: :54 Request LIPID PANEL (18293)Indication: Other hyperlipidemia On: :54 Request AMANDEEP (ANTINUCLEAR ANTIBODY) (09494)Indication: Osteoarthritis, unspecified osteoarthritis type, unspecified site On: 5-Zbp-987320:53 Request RHEUMATOID FACTOR-QUANT (48824)Indication: Osteoarthritis, unspecified osteoarthritis type, unspecified site On: 4-Lbc-736650:53 Request C-REACTIVE PROTEIN (94841)Indication: Osteoarthritis, unspecified osteoarthritis type, unspecified site On: 3-Hhu-561890:53 Request SED RATE ERYTHROCYTE (27310)Indication: Osteoarthritis, unspecified osteoarthritis type, unspecified site On: 5-Kgc-927769:53 Request Planned Encounters Medical; ADD EST VISIT - On: 15-Jul-2018 15:30 [facility], In[facility]; [facility]am (Doctor) - On: 22-Jul-2018 13:30 [facility] Fast DO, Ana A Fast DO, Ana A Planned Procedures Flu Vaccine (Quadrivalent) On: 30-Apr-2018 Intent 11374Vi: Fast DO, Ana A Fast Comments: Lot #[id number]-L dltd, IMDose prefilled syringegiven by: HERNANDO Velez reviewed and ABN signed DO, Ana A Flu Vaccine (Quadrivalent) On: 05-Jun-2017 Intent 80686Mu: Fast DO, Ana A Fast Comments: lot: [id number]: 01/28/18ite/route: L jefe, IMamt: 0.5mlVIS and ABN signed when applicableChelsKANG spicer DO, Ana A PNEUM VAC ADLT/IMUMNOSPR, On: 09-Apr-2017 Intent SBC/INTRM (99047)By: Fast DO, Comments: lot: [id number]: 09/20/18site/route: L del/IMamt: 0.5mLVIS signed when applicableChesandip, KANG Ana A Fast DO, Ana A ELECTROCARDIOGRAM, COMPLETE On: 09-Apr-2017 Intent (ECG) (48758)By: Fast DO, Ana Comments: ekg showed normal sinus rhythym, normal axis, no acute st/t wave changes A Fast DO, Ana A THYROID SCAN UPTAKE (37803)By: On: 25-Aug-2016 Intent Fast DO, Ana A Fast DO, Ana A Flu Vaccine (Quadrivalent) On: 15-May-2016 Intent 05902Ow: Fast DO, Ana A Fast Comments: Lot #:[id number] date:02/09/17mount given:0.5mlRoute: IMSite given: left dewltoidGiven by: LEANDRO Perez DO, Ana A ADMINISTRATION OF INFLUENZA On: 15-May-2016 Intent VIRUS VACCINE (G0008)By: Mynor DO, Ana A Fast DO, Ana A CT - Brain/Head (IV Contrast On: 03-Apr-2016 Intent Needed)By: Jung Cai DOa A Fast DO, Ana A ELECTROCARDIOGRAM, COMPLETE On: 03-Apr-2016 Intent (ECG) (17801)By: Mynor ZAMAN Ana Comments: ekg showed normal sinus rhythym, normal axis, no acute st/t wave changes sinus surjit A Fast DO, Ana A Cartoid DopplerBy: Fast DO, On: 19-Jul-2015 Intent Ana A Fast DO, Ana A Flu Vaccine (Quadrivalent) On: 19-Jul-2015 Intent 80231Zf: Fast DO, Ana A Fast Comments: lot [id number]: 02/10/2016site/route L jefe, IMamt 0.5mlVIS and ABN signed when applicableChelsea, KANG DO, Ana A ADMINISTRATION OF INFLUENZA On: 19-Jul-2015 Intent VIRUS VACCINE (G0008)By: Jung Cai DOa A Fast DO, Ana A Aerosol Treatment (84944)By: On: 30-Jun-2015 Intent Janice Hopper DO Comments: more a.e no wheeze -- really better Radiology - Chest- PA and On: 30-Jun-2015 Intent LatBy: Janice Hopper DO Cartoid DopplerBy: Mynor ZAMAN, On: 18-May-2014 Intent Ana A Fast DO, Ana A FLU VAC, SPLIT, >3 YEARS, On: 18-May-2014 Intent INTRAMUSC (33176)By: Mynor ZAMAN, Comments: Lot #:[id number] date:04/2016Amount given:0.5mlRoute: IMSite given: left deltoidGiven by: LEANDRO Perez Fast DO, Ana A IMMUNIZ ADMNIN, 1 VAC, On: 18-May-2014 Intent SNGL/COMBO (70922)By: Fast DO, Ana A Fast DO, Ana A Eprescribed prescriptions On: 17-Nov-2013 Intent (G8553)By: Fast DO, Ana A Fast DO, Ana A Solu- Medrol Injection, 125mg On: 05-Aug-2013 Intent (J2930)By: Fast DO, Ana A Comments: Lot #[id number]-Qppd-zysjayjcy syringegiven by:HERNANDO Dixon signed Fast DO, Ana A Aerosol Treatment (93428)By: On: 05-Aug-2013 Intent Fast DO, Ana A Fast DO, Ana A Spirometry (71929)By: Fast DO, On: 05-Aug-2013 Intent Ana A Fast DO, Ana A Comments: good effort and curve mod obst Pulse Oximetry (06298)By: Mynor On: 05-Aug-2013 Intent DO, Ana A Fast DO, Ana A Comments: 98 Radiology - Chest- PA and On: 05-Aug-2013 Intent LatBy: Fast DO, Ana A Fast DO, Ana A Eprescribed prescriptions On: 05-Aug-2013 Intent (G8553)By: Millie Christine FLU VAC, SPLIT, >3 YEARS, On: 16-Jul-2013 Intent INTRAMUSC (41805)By: Mariam, Comments: Lot #:[id number] date:mount given:0.5mlRoute: IMSite given: L dltdVIS and ABN signedGiven by: LEANDRO Perez IMMUNIZ ADMNIN, 1 VAC, On: 16-Jul-2013 Intent SNGL/COMBO (00394)By: Amaris Becerra Eprescribed prescriptions On: 16-Jul-2013 Intent (G8553)By: Amaris Becerra EKG (16448)By: Mariam, On: 24-Feb-2013 Intent Amaris Comments: ekg showed normal sinus rhythym, normal axis, no acute st/t wave changes Cartoid DopplerBy: Mynor ZAMAN, On: 24-Feb-2013 Intent Ana A Fast DO, Ana A Eprescribed prescriptions On: 24-Feb-2013 Intent (G8553)By: Amaris Becerra Eprescribed prescriptions On: 21-Oct-2012 Intent (G8553)By: Amaris Becerra Eprescribed prescriptions On: 29-Jul-2012 Intent (G8553)By: Amaris Becerra FLU VAC, SPLIT, >3 YEARS, On: 24-May-2012 Intent INTRAMUSC (49180)By: Aime Comments: Lot #[id number]/30/13Site-left deltoidgiven by: Carlos Salomon LPN LPN, Connie IMMUNIZ ADMNIN, 1 VAC, On: 24-May-2012 Intent SNGL/COMBO (84476)By: Julissa Salomon LPN Cartoid DopplerBy: Fast DO, On: 25-Mar-2012 Intent Ana A Fast DO, Ana A Comments: may EKG (62389)By: Mariam, On: 30-Oct-2011 Intent Amaris Comments: ekg showed normal sinus rhythym, normal axis, no acute st/t wave changes TD Injection , IM (35225)By: On: 06-Jun-2011 Intent Amaris Becerra Comments: [facility] FLU VAC, SPLIT, >3 YEARS, On: 06-Jun-2011 Intent INTRAMUSC (05863)By: Mariam, Comments: Lot #:[id number] date:mount given:0.5mlRoute: IMSite given:left deltGiven by: LEANDRO Perez IMMUNIZ ADMNIN, 1 VAC, On: 06-Jun-2011 Intent SNGL/COMBO (95294)By: Amaris Becerra Cartoid DopplerBy: Fast DO, On: 25-Apr-2011 Intent Ana A Fast DO, Ana A EKG (07790)By: Fast DO, Ana On: 16-Feb-2010 Intent A Fast DO, Ana A Comments: ekg showed normal sinus rhythym, normal axis, no acute st/t wave changes Planned Medications INJECTION, METHYLPREDNISOLONE SODIUM SUCCINATE, UP TO 125 MG Ordered: 05-Aug-2013 Pending Fast DO, Ana A Fast DO, Ana A Instructions Name Dates Details Anxiety : How to access health information [...] Instructions Indication: Anxiety Encounters Office Visit On: 30-Apr-2018 15:45 Encounter Diagnosis: [...] medical issues: he has allergies using zyrtec mirna g singulair and wa nts to try [...] needs to see endo sent message to [facility] about being on stimulant with thryoid off [...] libido is normal. Note for Physical exam: [facility]- weight down 5 pounds and [...] - Date: (02/02/16). Encounter Diagnosis: Abnormal TSH, [facility], Memory loss, Primary dysthymia, Sleep [...] for Tdap vaccination (Renamed from Need for zqazcrafru-lbpmrhb-nhqfzllwd (Tdap) vaccine, adult/adolescent), Gastroesophageal reflux disease without [...] him tired sx 3 weeks with colored jackelynIgnaciaer Diagnosis: Upper Respiratory Infection (465.9) [facility] [...] on augmentin f or ear issues from [facility] x1 week- sunday throat sore all the [...] of crap- feels better- saw Aaron and cindi has psoriatic arthritis- and on methotrexate and [...] On: 16-Feb-2010 15:19 Encounter Reason: new patient bo rosario - Last seen more than 1 year [...] ago- 2 years??). Note for new patient bo rosario: he tries to do physical yearly- but [...] Sleep disorder (780.50) [facility]; a guarantor
--- OUTSIDE RECORDS SUMMARY | 2018-10-30 18:38 | XMS RPT_ITS | Continuity of Care Document ---
:1960 Author Organization [facility] Address [address] [facility] [address] [place] [address] Phone Care Team Providers Name Role Phone Ana Cai DO Unavailable Lupillo Taylor Unavailable Sin Gupta MD Unavailable Dr. 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) Status: Active [...] Quantity: 30 {Tablet} Refills: 3 Ordered:25-Feb-2016 DOAna DO Ana A Start : 25-Feb-2016 Active Crestor 10 MG Oral Tablet 1 (one) Tablet qd for 90 days Quantity: 90 {Tablet} Refills: 3 Ordered:25-Mar-2018 DOAna DO, Ana A Start : 25-Mar-2018 Active DULoxetine HCl 20 MG Oral Capsule Delayed Release Particles 2 (two) Capsule DR Part qd for 0 days Quantity: 180 {Capsule} Refills: 3 Ordered:22-Jul-2018 DO Ana Javy DO Ana A Start : 22-Jul-2018 Active DULoxetine HCl 20 MG Oral Capsule Delayed Release Particles 2 (two) Capsule DR Part qd for 0 days Quantity: 180 {Capsule} Refills: 3 Ordered:22-Jul-2018 DOJunga AFtray DO, Ana A Start : 22-Jul-2018 Active Escitalopram Oxalate 20 MG Oral Tablet 1 (one) Tablet qhs for 90 days Quantity: 90 {Tablet} Refills: 3 Ordered:03-Sep-2017 Fast DOJunga AFtray DO Ana A Start : 03-Sep-2017 Active FOLIC ACID, 1MG (Oral Tablet) 1 tab qd (1 MG) Active LORazepam 0.5 MG Oral Tablet 1 (one) Tablet qd prn for 30 days Quantity: 30 {Tablet} Refills: 0 Ordered:01-Jul-2018 Ana Cai DO, DO, Ana A Start : 01-Jul-2018 Active Comments:thirty Methotrexate 2.5 MG Oral Tablet 6 once weekly (2.5 MG) Active Comments:vashti Metoprolol Tartrate 50 MG Oral Tablet 1 (one) Tablet 1 tab at 6pm night before scan. 1 tab at 7am day of scan for 0 days Quantity: 2 {Tablet} Refills: 0 Ordered:24-Jul-2018 Jose C Christinea Start : 24-Jul-2018 Active Montelukast Sodium 10 [...] Quantity: 1 {Inhaler} Refills: 1 Ordered:24-Dec-2017 Ayala ZAMAN, Ana Palafox DO, Ana A Start : 24-Dec-2017 Active VITAMIN C, 500MG (Oral Tablet) 1 tab qd during winter months for 0 days Refills: 0 Ordered:16-Nov-2014 Elodia Christinetive AMOXICILLIN-POT CLAVULANATE, 875-125MG (Oral Tablet) 1 (one) Tablet Tablet bid for 0 days Quantity: 20 {Tablet} Refills: 0 Ordered:26-Jul-2015 Long HAND TUFTERInon L Start : 20-Apr-2015 End : 26-Jul-2015 [...] (E83.51, 275.41) Status: Inactive as of 09-Jun-2016 [facility] Status: Resolved as of 16-Jul-2017 [facility] Status: Inactive as of 09-Jun-2016 [...] for Tdap vaccination (Renamed from Need for ulxverbstn-ohrrmky-fbkqvnjoa (Tdap) vaccine, adult/adolescent) (Z23, V06.1) Status: Inactive [...] Procedure Dates Details TDAP VACCINE >7 IM (74562) Date: 08-Nov-2015 Completed 08-Nov-2015 nasal septal deviation urgery Completed Tonsillectomy Completed uvuloplasty/palate surgery Completed Date Value Details 23-Oct-2016 Sleep Study Report Result: Comments: See Note; NOTES: [facility] [address] [place] [address] Polysomnography with NCPAP MR#: [id number] Acct: [id number] Name: ORACIO ELIZALDE Chu Gilliam ep #: [id number] : 1960 56 From: Terrence Turner MD [...] version). Please note that a reference to [facility] AHI in this report is consistent with the current Hypopnea definition according to Medicare Criteria and an [facility] AHI reference is consistent with the current Hypopnea definition according to the AASM criteria and is recognized by [facility] as the RDI. PROCEDURE: The study was attended continuously by a evidence technician. Monitored parameters included left and right [...] calculated body mass index of 28, an Coventry Sleepiness Scale score of 11/24. The patient [...] when sleepy. INTERPRETING PHYSICIAN: Era Turner Jr., M.Javon. Terrence Turner MD T: NTS JOB: [id number] CC: Terrence Turner MD 42 4210/23/160 <Electronically signed by Terrence Turner MD&#62 ; Date Terrence Turner MD Co-signature (if applicable) Date Signed 25-Sep-2016 Thyroid Uptake Single or Mult Result: Comments: See Note; NOTES: [facility] Imaging Services [address] [place] [address] Verdana 4d Thyroid Uptake Single or Mult MR#: [id number] Acct: [id number] Name: Javon ELIZALDE Rep #: [id number] : 1960 M 56 From: Sin Brantley DO PCP: Ana Cai DO Status: REG CLI Study: Thyroid Uptake Single or Mult Date of Exam: 09/25/16 Exam# [id number] Ordering Dr: Pearce DO CLINICAL: 56-year-old male [...] at 23:21 EST Tel , Service support [phone], CC: Ana Cai DO Academic Affairs Director: Signed 04-Apr-2016 Brain/Head W/WO Contrast Result: Comments: See Note; NOTES: [facility] Imaging Services [address] [place] [address] Verdana 4d Brain/Head W/WO Contrast MR#: [id number] Acct: [id number] Name: FANNY ELIZALDEQUANG Rep #: [id number] : 1960 M 56 From: Cuauhtemoc Vo MD PCP: Ana Cai DO Status: REG CLI Study: Brain/Head W/WO Contrast Date of Exam: 04/04/16 Exam# [id number] Ordering Dr: Ana Cai DO STUDY: CT [...] Cuauhtemoc Vo MD at 8:08 EDT Tel [phone], Service support [phone], CC: Ana Cai DO Academic Affairs Director: Signed 16-Aug-2014 Emergency Department Summary Result: Comments: See Note; NOTES: [facility] Medical Records Department [address] [place] [address] Emergency Department Summary MR#: [id number] Acct: [id number] Name: ORACIO LOPEZ Rep #: [id number] : 1960 54 From: Donn Jacobo MD PCP: Ana Cai DO Status: [facility] ER DATE OF SERVICE: 08/07/2014 CHIEF COMPLAINT: [...] given a prescription for na proxen and [place]. He will be discharged to follow up with Dr. Pierce. DISPOSITION: Discharge. DIAGNOSES: 1. Right knee effusion: 2. Inflammatory process of right knee. Donn Jacobo MD T: [facility] JOB: [id number] 08/16/14 0852 <Electronically signed by Donn Jacobo MD> Date Donn Jacobo MD CC: Ana Cai DO Date Dictated: 2208 Date Transcribed: 08/07/142208 Academic Affairs Director: Signed 07-Aug-2014 Discharge Instruction Result: Comments: See Note; NOTES: [facility] Medical Records Department [address] [place] [address] Discharge Instruction 08/07/142205 MR#: [id number] Acct: [id number] Name: ORACIO ELIZALDE Rep #: [id number] : 1960 54 From: Donn Jacobo MD PCP: Ana Cai DO Status: REG ER ED Disposition - Plan for ED Patient: Disposition: Home Chief Complaint: Lower Ext remity Injury Discharge Problem: Effusion of left knee, 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 Call [facility] ( [phone]) or report to the closest Emergency Room. Call 911 if necessary. 08/07/142207 <Electronically signed by Donn Jacobo MD> Date Donn Jacobo MD Cosigner Signature (If Indicated): Date CC: Ana Cai DO -Jul-2014 Carotid Duplex Ultrasound Result: Comments: See Note; NOTES: [facility] Cardiovascular Services [address] [place] [address] Carotid Duplex Ultrasound 07/10/14 0909 MR#: [id number] Acct: [id number] Dudley e: ORACIO ELIZALDE Rep #: [id number] : 1960 54 From: Robin Fabian MD Attending Dr: Ana Cai DO Status: REG CLI Ordering Dr: Ana Cai DO Date: 07/10/14 Location: [facility] Sex: M C Admitt ed: Rt. Velocities/BP [...] the left vertebral artery. Procedure Carotid Duplex 75854. The exam was diagnostic. Exam performed in department. Interp retation Summary Mild (<50%) stenosis right extracranial internal carotid. Mild (<50%) stenosis left extracranial internal carotid. Flow within the vertebral arteries is antegrade michelle aterally. Ordering Physician: Ana Cai Referring Physician: Lata Valle Performed By: SAMUEL Juan 07/15/14 0824 Date Robin Fabian MD CC: Ana Cai DO Da te Dictated: 07/10/14908 Date Transcribed: 07/15/14823 Academic Affairs Director: Signed 15-Jul-2014 Carotid Duplex Ultrasound Result: Comments: See Note; NOTES: [facility] Cardiovascular Services [address] [place] [address] Carotid Duplex Ultrasound 07/10/14908 MR#: [id number] Acct: [id number] Dudley e: ORACIO ELIZALDE Rep #: [id number] : 1960 54 From: Robin Fabian MD Attending Dr: Ana Cai DO Status: REG CLI Ordering Dr: Ana Cai DO Date: 07/10/14 Location: [facility] Sex: M C Admitt ed: Rt. Velocities/BP [...] the left vertebral artery. Procedure Carotid Duplex 44238. The exam was diagnostic. Exam performed in department. Interp retation Summary Mild (<50%) stenosis right extracranial internal carotid. Mild (<50%) stenosis left extracranial internal carotid. Flow within the vertebral arteries is antegrade michelle aterally. Ordering Physician: Ana Cai Referring Physician: Lata Valle Performed By: SAMUEL Juan 07/15/14 0824 Date Robin Fabian MD CC: Ana Augustin Dictated: 07/10/14 0909 Date Transcribed: 07/15/14823 Academic Affairs Director: Signed 26-Jan-2014 Knee 4 or More Views Result: Comments: See Note; NOTES: [facility] Imaging Services [address] [place] [address] Radiology Report MR#: [id number] Acct: [id number] Name: ORACIO ELIZALDE Rep #: [id number] : 1960 M 53 From: Cuauhtemoc Vo MD PCP: Ana Cai DO Status: REG CLI Study: Knee 4 or More Views Date of Exam: 01/26/14 Exam# [id number] Ordering Dr: Lata Valle MD ERIC DY: [...] Cuauhtemoc Vo MD at 13:17 EDT Tel [phone], Service support [phone], RAD/Knee 4 or More Views IM PRESSION: Degenerative arthrosis. Mild synovial thickening. Electronically Signed: Cuauhtemoc Vo MD at 13:17 EDT Tel [phone], Service support [phone], CC: Ana Cai DO; Lata Valle MD Academic Affairs Director: Signed 26-Jan-2014 Knee 4 or More Views Result: Comments: See Note; NOTES: [facility] Imaging Services [address] [place] [address] Radiology Report MR#: [id number] Acct: [id number] Name: ORACIO ELIZALDE Rep #: [id number] : 1960 M 53 From: Cuauhtemoc Vo MD PCP: Ana Cai DO Status: REG CLI Study: Knee 4 or More Views Date of Exam: 01/26/14 Exam# [id number] Ordering Dr: Lata Valle MD [facility] DY: X-RAY - LEFT KNEE REASON FOR [...] Signed: Rosa Ambriz at 13:17 EDT Tel [phone], Service support [phone], RAD/Knee 4 or More Views IMPRESSION: Minimal synovial thickening. Electronically Sig la: Cuauhtemoc Vo MD at 13:17 EDT Tel [phone], Service support [phone], CC: Ana Cai DO; Lata Valle MD Academic Affairs Director: Signed 29-Aug-2013 Sleep Study Report Result: Comments: See Note; NOTES: [facility] [address] [place] [address] Polysomnography with NCPAP MR#: [id number] Acct: [id number] Name: ANDRA ELIZALDE DEEPTI T Rep #: [id number] : 1960 53 From: Westley Porter MD PCP: Ana aCi DO Status: REG CLI Ordering Dr.: Ana Cai DO Date: 08/21/13 Sex: M C SLEEP HISTORY: This is a CPAP titratio n study performed on this 53-year-old male with a body mass index of 28 and an Coventry Sleepiness Scale score of 12. He has [...] version). Please note that a reference to [facility] AHI in this report is consistent with the current Hypopnea definition according to Medicare Criteria and an [facility]ASM AHI refere nce is consistent with the current Hypopnea definition according to the AASM criteria. PROCEDURE: The study was attended continuously by a evidence technician. Monitored parameters included left and r [...] Study Report Result: Comments: See Note; NOTES: [facility] [address] [place] [address] Polysomnography MR#: [id number] Acct: [id number] Name: ORACIO ELIZALDE Rep #: [id number] : 1960 53 From: Terrence Turner MD PCP: Ana Cai DO Status: REG CLI Ordering Dr.: Ana Cai DO Date: 08/01/13 Sex: M C REFERRING PHYSICIAN: Dr. Cai. SLEEP HISTORY: The patient is a 53-year-old gentleman with a calculated body mass index of 28 and an Coventry Sleepiness Scale score of 12/24. He has [...] version). Please note that a reference to [facility] AHI in this report is consistent with the current Hy popnea definition according to Medicare Criteria and an [facility] AHI reference is consistent with the current Hypopnea definition according to the AASM criteria. PROCEDURE: The study was attended kai nuously by a evidence technician. Monitored parameters included left and right [...] and Lateral Result: Comments: See Note; NOTES: [facility] Imaging Services [address] [place] [address] Radiology Report MR#: [id number] Acct: [id number] Name: ORACIO ELIZALDE Rep #: [id number] : 1960 M 53 From: Wesley Ramirez MD PCP: Ana Cai DO Status: REG CLI Study: Chest PA and Lateral Date of Exam: 08/05/13 Exam# [id number] Ordering Dr: Ana Cai DO STUDY: X-RA [...] at 13:55 EST , Service sup port [phone], CC: Ana Cai DO Academic Affairs Director: Signed Immunization Name Dates Details Tdap (7 [...] smoker Vital Signs Date Test Result Details 18-Xal-486092:19 Temperature 97.1 f Comments: Method: Temporal Pulse [...] kg/m2 Body Surface Area Calculated 2.17 m2 29-Ass-515000:45 Comments: 122/80 recheck bp Temperature 96.7 f [...] Value Details :32 CBC W/Diff, Automated Comments: [facility] [address] [place], [place], [id number] Absolute Lymph 1.42 {X10_3/ul} (Normal) Range: 0.83-4.51 [...] Range: 4.4-11.0 :32 Comprehensive Metabolic Profil Comments: [facility] [address] [place], [address] GAP 7 (Normal) Range: 5-15 CO2 28.0 [...] A.D.A. criteria.Please note revised GLUCOSE reference range zjirkccey48/02/2018. 16-Jul-20188:42 Drug Screen (7drug + Comments: PATIENT NOT FASTINGPERFORMED BY: [facility] OTS [id number] [address] [facility] [id number] Information: CCU:[id number] ; positive for amphetamines as it should be Alcohol) (85165) Ethanol, Urine Negative % (Normal) Phencyclidine Negative [...] Amphetamine test includes Amphetamine and Methamphetamine. (Normal) 20-Llz-301568:58 CBC W/Diff, Automated Comments: [facility] [address] [place], [place], [address] Absolute Lymph 1.59 {X10_3/ul} (Normal) Range: 0.83-4.51 [...] 4.6-6.2 WBC 5.9 K/mm3 (Normal) Range: 4.4-11.0 86-Iiv-624359:58 Comprehensive Metabolic Profil Comments: [facility] [address] [place], [address] GAP 9 (Normal) Range: 5-15 CO2 30.0 [...] Comments: Please note revised GLUCOSE reference range vewbqkhkd24/02/2018. 54-Fgh-50770:24 CBC with auto diff Comments: PATIENT NOT FASTINGPERFORMED BY: [facility] CenterAnzice9149 [facility] [id number] Information: NURSE DRAW (18686) Immature Grans (Abs) 0.0 {x10E3/uL} (Normal) Range: [...] 4.14-5.80 WBC 6.4 {x10E3/uL} (Normal) Range: 3.4-10.8 82-Vho-79591:24 METABOLIC PANEL, COMPREHENSIVE Comments: PATIENT NOT FASTINGPERFORMED BY: [facility] CenterNoxoeq9293 [facility] [id number] ([address]) ALT (SGPT) 27 [iU]/L (Normal) Range: 0-44 [...] 6-24 Glucose 99 mg/dL (Normal) Range: 65-99 14-Sff-43085:17 CBC W/Diff, Automated Comments: [facility] [address] [place], [place], [address] Absolute Lymph 1.70 {X10_3/ul} (Normal) Range: 0.83-4.51 [...] 4.6-6.2 WBC 5.8 K/mm3 (Normal) Range: 4.4-11.0 14-Dcp-21743:17 Comprehensive Metabolic Profil Comments: [facility] [address] [place], [address] GAP 5 (Normal) Range: 5-15 CO2 29.0 [...] A.D.A. criteria.Please note revised GLUCOSE reference range mgyytiqjq20/02/2018. 17-Dec-20176:22 CBC W/Diff, Automated Comments: [facility] [address] [place], [address] ; review at 12/24 Absolute Lymph 1.33 [...] 4.6-6.2 WBC 5.6 K/mm3 (Normal) Range: 4.4-11.0 :22 Comprehensive Metabolic Profil Comments: [facility] [address] [place], [place], [address] GAP 7 (Normal) Range: 5-15 CO2 29.0 [...] Comments: Please note revised GLUCOSE reference range ltfkgogvq97/02/2018. 17-Dec-20176:22 Lipid Profile Comments: [facility] [address] [place], [place], [address] VLDL 23 mg/dL (Normal) Range: 5-40 LDL [...] Risk :22 PSA,Total - Annual Screen Comments: [facility] [address] [place], [place], [address] PSA,TOT SCREEN 0.85 ng/mL (Normal) Range: 0.00-4.00 Comments: This test was performed using the TPSA assay method for theCoolture chemistry system. Values obtained with differentassay methods cannot be used interchangably.When changing PSA assays in the course of monitoring apatient, additional sequential testing should be carriedout to confirm baseline values. :22 Thyroid Stim Hormone (TSH) Comments: [facility] [address] [place], [place], [phone] TSH 1.13 {uIU/mL} (Normal) Range: 0.358-3.74 66-Ygx-094339:56 CBC W/Diff, Automated Comments: [facility] [address] [place], [place], [address] Absolute Lymph 1.48 {X10_3/ul} (Normal) Range: 0.83-4.51 [...] 4.6-6.2 WBC 6.3 K/mm3 (Normal) Range: 4.4-11.0 69-Wgx-955147:56 Comprehensive Metabolic Profil Comments: [facility] [address] [place], [address] GAP 6 (Normal) Range: 5-15 CO2 29.0 mmol/L (Normal) Range: 21.0-32.0 CL 107 mmol/L (Normal) Range: 98-107 K 4.0 mmol/L (Normal) Range: 3.5-5.1 NA 142 mmol/L (Normal) Range: 136-145 T BILI 0.70 mg/dL (Normal) Range: 0.20-1.00 ALT 42 U/L (Normal) Range: 16-61 Comments: Please note revised ALT reference range mpfignlbi72/28/2018. ALK P 59 U/L (Normal) Range: 45-117 [...] Comments: Please note revised GLUCOSE reference range clozrrrvv28/02/2018. 64-Hsp-91135:18 CBC W/Diff, Automated Comments: [facility] [address] [place], [address] ; review 09/03 Absolute Lymph 1.62 {X10_3/ul} [...] 4.6-6.2 WBC 6.0 K/mm3 (Normal) Range: 4.4-11.0 08-Ykb-49066:18 Comprehensive Metabolic Profil Comments: [facility] [address] [place], [place], [address] GAP 6 (Normal) Range: 5-15 CO2 31.0 [...] 7-18 GLU 81 mg/dL (Normal) Range: 70-110 23-Egq-46513:18 Lipid Profile Comments: [facility] [address] [place], [place], [address] VLDL 24 mg/dL (Normal) Range: 5-40 LDL [...] 200-240 mg/dL Borderline >240 mg/dL High Risk 26-Hdh-04990:18 Thyroid Stim Hormone (TSH) Comments: [facility] [address] [facility], [address] TSH 0.81 {uIU/mL} (Normal) Range: 0.358-3.74 76-Rmp-982857:10 CBC W/Diff, Automated Comments: [facility] [address] [facility] [address] [place], [place], [address] Absolute Lymph 1.62 {X10_3/ul} (Normal) Range: 0.83-4.51 [...] 4.6-6.2 WBC 7.0 K/mm3 (Normal) Range: 4.4-11.0 51-Quw-086434:10 Comprehensive Metabolic Profil Comments: [facility] [address] [place], [address] GAP 7 (Normal) Range: 5-15 CO2 30.0 [...] 7-18 GLU 90 mg/dL (Normal) Range: 70-110 :09 CBC W/Diff, Automated Comments: [facility] [address] [place], [place], [address] ; will review at upcoming appt Absolute [...] 4.6-6.2 WBC 6.0 K/mm3 (Normal) Range: 4.4-11.0 :09 Comprehensive Metabolic Profil Comments: [facility] [address] [place], [address] GAP 7 (Normal) Range: 5-15 CO2 32.0 [...] 7-18 GLU 89 mg/dL (Normal) Range: 70-110 35-Srr-41025:09 Hepatitis C Antibodies Comments: [facility] (refer to report for specific site)refer to report for address and phone number; will review on 05/28 HEP C AB <0.1 {s/co_ratio} (Normal) Range: 0.0-0.9 Comments: Negative: < 0.8 Indeterminate: 0.8 - 0.9 Positive: > 0.9 The CDC recommends that a positive HCV antibody result be followed up with a HCV Nucleic Acid Amplification test (775355).Performed at: - [facility] [id number] Director: Jose Francisco Coates PhD, Phone: [phone] 70-Dzm-66246:09 Lipid Profile Comments: [facility] [address] [place], [place], [phone] VLDL 20 mg/dL (Normal) Range: 5-40 LDL [...] 200-240 mg/dL Borderline >240 mg/dL High Risk 00-Erh-10057:09 Thyroid Stim Hormone (TSH) Comments: [facility] [address] [place], [place], [address] TSH 0.88 {uIU/mL} (Normal) Range: 0.358-3.74 98-Nfq-233026:14 CBC W/Diff, Automated Comments: [facility] [address] [place], [place], [address] Absolute Lymph 1.50 {X10_3/ul} (Normal) Range: 0.83-4.51 [...] 4.6-6.2 WBC 7.8 K/mm3 (Normal) Range: 4.4-11.0 45-Ioh-751929:14 Comprehensive Metabolic Profil Comments: [facility] [address] [place], [address] GAP 7 (Normal) Range: 5-15 CO2 28.0 [...] auto diff Comments: PATIENT NOT FASTINGPERFORMED BY: DERIK [facility] CenterHxtdyl6034 [facility] [id number] Information: NURSE DRAW (19051) Immature Grans (Abs) 0.0 {x10E3/uL} (Normal) Range: [...] 4.14-5.80 WBC 5.4 {x10E3/uL} (Normal) Range: 3.4-10.8 :44 METABOLIC PANEL, COMPREHENSIVE Comments: PATIENT NOT FASTINGPERFORMED BY: [facility] Mqzhbz0911 [facility] [id number] ([address]) ALT (SGPT) 52 [iU]/L (Abnormal) Range: 0-44 [...] Glucose, Serum 105 mg/dL (Abnormal) Range: 65-99 67-Com-217975:11 CBC W/Diff, Automated Comments: DR VALLE ORDERED CMP CBCD ONLYDR VALLE ORDERED CMP CBCD [facility] [address] [facility] [address]. [place], [place], [phone] Absolute Lymph 1.15 {X10_3/ul} (Normal) Range: 0.83-4.51 [...] 4.6-6.2 WBC 7.1 K/mm3 (Normal) Range: 4.4-11.0 88-Xem-285660:11 Comprehensive Metabolic Profil Comments: DR VALLE ORDERED CMP CBCD [facility] [address] [place], [place], [address] GAP 6 (Normal) Range: 5-15 CO2 30.0 [...] 7-18 GLU 101 mg/dL (Normal) Range: 70-110 47-Llt-781739:11 CRP Comments: DR VALLE ORDERED [facility] CBCD [facility] [address] [facility]. [place], [place], [address] C-REACTIVE PROT 4.36 mg/L (Abnormal) Range: 0.0-3.0 Comments: C-Reactive Protein (CRP) provides useful information for thediagnosis, therapy and monitoring of inflammatory processesand associated diseases. For the evaluation of Relative Riskfor Cardiovascular Dise ase, a High Sensitivity CRP (HSCRP)should be ordered. 38-Klu-540117:11 Free T3 Comments: DR VALLE ORDERED [facility] CBCD [facility] [address] [facility]. [place], [place], [phone] FREE T3 2.7 pg/mL (Normal) Range: 2.18-3.98 52-Bnw-776351:11 Lipid Profile Comments: DR VALLE ORDERED [facility] CBCD [facility] [address] [place], [address](160) VLDL 15 mg/dL (Normal) Range: 5-40 LDL [...] 200-240 mg/dL Borderline >240 mg/dL High Risk 75-Yap-908185:11 PSA,Total - Annual Screen Comments: DR VALLE ORDERED [facility] CBCD [facility] [address] [place], [place], [address] PSA,TOT SCREEN 0.89 ng/mL (Normal) Range: 0.00-4.00 Comments: This test was performed using the TPSA assay method for [employer] Aud[employer]™ chemistry system. Values obtained with differentassay methods cannot be used interchangably.When changing PSA assays in the course of monitoring apatient, additional sequential testing should be carriedout to confirm baseline values. 69-Snl-887088:11 T4 Free Direct Comments: DR VALLE ORDERED [facility] HOSPITAL CBCD [facility] [address] [place], [place], [id number] T4 FREE DIRECT 1.08 ng/dL (Normal) Range: 0.76-1.46 97-Heh-700485:11 Thyroid Stim Hormone (TSH) Comments: DR VALLE ORDERED [facility] CBCD [facility] Jrutmvrarj[address] [place], [place], [address] TSH 0.36 {uIU/mL} (Normal) Range: 0.358-3.74 13-Ywb-981981:44 CBC W/Diff, Automated Comments: [facility] [address]vrh[address] [place], [place], [address] Absolute Lymph 1.41 {X10_3/ul} (Normal) Range: 0.83-4.51 [...] 4.6-6.2 WBC 6.6 K/mm3 (Normal) Range: 4.4-11.0 09-Ook-307608:44 Comprehensive Metabolic Profil Comments: T3F T4F TSHDR.CADENLANKI CMP [facility] Ypunrkujct59[address] [place], [place], [phone] GAP 6 (Normal) Range: 5-15 CO2 30.0 [...] 7-18 GLU 91 mg/dL (Normal) Range: 70-110 41-Jjo-325086:44 Free T3 Comments: T3F T4F TSHCAROLIN[facility] P[facility]VILLEBASIABer[facility] [address] [place] [address], [id number] FREE T3 2.6 pg/mL (Normal) Range: 2.18-3.98 :44 T4 Free Direct Comments: T3F T4F TSHCAROLINAS CONTINUEC[facility] HOSPITAL AT PINEVILLESHYLA [facility] Hawlmar[address] [place] [address], [address] T4 FREE DIRECT 1.04 ng/dL (Normal) Range: 0.76-1.46 87-Xci-317493:44 Thyroid Stim Hormone (TSH) Comments: T3F T4F TSH [facility] R[address]lsf[address]jlsm[address] [place], [place], [address] TSH 0.26 {uIU/mL} (Abnormal) Range: 0.358-3.74 :13 CBC W/Diff, Automated Comments: [facility] [address] [place], [place], [id number] ; apt next week Absolute Lymph 1.59 [...] Range: 4.4-11.0 :13 Comprehensive Metabolic Profil Comments: [facility] [address] [place], [address] GAP 1 (Abnormal) Range: 5-15 CO2 33.0 [...] 70-110 :13 CRP, High Sensitivity Cardiac Comments: [facility] [address] [place], [place], [address] CRP HIGH SENS 2.19 mg/L (Normal) Comments: Low Relative Risk of CVD <1.0 mg/L Average Relative Risk of CVD 1.0 - 3.0 mg/L High Relative Risk of CVD >3.0 mg/L :13 Lipid Profile Comments: [facility] [address] [place], [address] VLDL 23 mg/dL (Normal) Range: [...] High Risk :13 Vitamin D,25 Hydroxy Comments: [facility] [address]ajg[address] [place], [id number] Vitamin D 25-OH 31.7 ng/mL (Normal) Comments: Vitamin D 25(OH) Status Range Deficiency <20 ng/mL (50nmol/L) Insuffciency 20 - 30 ng/mL (50 - 75 nmol/L) Sufficiency 30 - 100 ng/mL (75 - 250 nmol/L) Toxicity >100 ng/mL (>250 nmol/L); ADDENDA: normal and has apt next week 27-Hqn-044831:07 Free T3 Comments: [facility] [address] [place], [place], [address] FREE T3 2.4 pg/mL (Normal) Range: 2.18-3.98 42-Lmg-709858:07 T4 Free Direct Comments: [facility] [address] [place], [address] T4 FREE DIRECT 1.16 ng/dL (Normal) Range: 0.76-1.46 91-Nfb-181626:07 Thyroid Stim Hormone (TSH) Comments: [facility] [address] [place], [phone] TSH 0.16 {uIU/mL} (Abnormal) Range: 0.358-3.74 49-Kzr-64153:20 Urine Drug Screen neg for everything (Office - Urine Drug (Normal) Screen 11 Panel) (86995) :13 CBC W/Diff, Automated Comments: [facility] Mgebgrhzhr2[address] [place], [address] Absolute Lymph 1.31 {X10_3/ul} (Normal) Range: 0.83-4.51 [...] Metabolic Profil Comments: LIPID [facility] Supquommlm[address] [place], [place], [address] GAP 6 (Normal) Range: 5-15 CO2 29.0 [...] 7-18 GLU 95 mg/dL (Normal) Range: 70-110 63-Mwx-43693:13 Lipid Profile Comments: LIPID IS FOR DR. Aparicio [facility] K[address]gmyxqf[address] [place], [place], [address] VLDL 21 mg/dL (Normal) Range: 5-40 LDL [...] Borderline >240 mg/dL High Risk :59 TSH (02130) Comments: PATIENT NOT FASTINGPERFORMED BY: [facility] Komlwu6522 [address] RoadDublin [place] [id number] TSH 0.250 {uIU/mL} (Abnormal) Range: 0.450-4.500 :59 CALCIUM, IONIZED (82403) Comments: PATIENT NOT FASTINGPERFORMED BY: [facility] Jlfshd2398 Philip RoadDublin [place] [id number] Calcium, Ionized, Serum 5.3 mg/dL (Normal) Range: 4.5-5.6 :59 PHOSPHORUS (86289) Comments: PATIENT NOT FASTINGPERFORMED BY: [facility] Vmnkou0491 [address] RoadDublin [place] [id number] Phosphorus, Serum 4.1 mg/dL (Normal) Range: 2.5-4.5 :59 PARATHORMONE (54639) Comments: PATIENT NOT FASTINGPERFORMED BY: [facility] Ajoxmj8738 Philip RoadDublin [place] [id number] PTH, Intact 29 pg/mL (Normal) Range: 15-65 :59 VITAMIN B-12 (CYANOCOBALAMIN) Comments: PATIENT NOT FASTINGPERFORMED BY: [facility] Tcnswi8838 [address] RoadDublin [place] [id number] (94822) Vitamin B12 793 pg/mL (Normal) Range: 211-946 :59 Anti-TPO Antibody (65691) Comments: PATIENT NOT FASTINGPERFORMED BY: [facility] Rsjloi8751 Philip RoadDublin [place] [id number] Thyroid Peroxidase (TPO) Ab 8 {IU/mL} (Normal) Range: 0-34 :59 T4, FREE (THYROXINE) Comments: PATIENT NOT FASTINGPERFORMED BY: [facility] Xwuupy3245 Philip RoadDublin [place] [id number] Information: [id number] (40694) T4,Free(Direct) 1.44 ng/dL (Normal) Range: 0.82-1.77 :59 T3, FREE (TRIDOTHYRONINE) (20651) Comments: PATIENT NOT FASTINGPERFORMED BY: [facility] Xsgsew7894 [facility] [id number] Triiodothyronine,Free,Serum 3.1 pg/mL (Normal) Range: 2.0-4.4 :13 CBC W/Diff, Automated Comments: CBCD IS FOR [facility] [address]sgk[address] [place], [place], [address] ; ordered by maco Absolute Lymph 0.96 [...] FOR AND CMP AND CBCD ARE FOR [facility] C[address]knnwhah[address] [place], [place], [address] GAP 4 (Abnormal) Range: 5-15 CO2 31.0 [...] FOR AND CMP AND CBCD ARE FOR DR.[facility]LLANKet[facility] Dwbcgrwxiq[address] [place], [address] VLDL 19 mg/dL (Normal) Range: [...] FOR AND CMP AND CBCD ARE FOR [facility] [address]ankh[address] [place], [place], [address] TSH 0.61 {uIU/mL} (Normal) Range: 0.358-3.74 :22 Rapid Flu (64441 x 2) Comments: neg Influenza A Ag negative (Normal) : Jacy Osei CMP14 SPRCS (Normal) Comments: PATIENT WAS FASTINGPERFORMED BY: [facility]CoRar[facility] Medical CenterWgjzbq7347 [facility] [id number] 17 Default Comments: A hand-written panel/profile was received from your office. Inaccordance with the [facility] Ambiguous Test Code Policy dated February2003, we have completed your order by using the closest currentlyor formerl y recognized AMA panel. We have assigned ComprehensiveMetabolic Panel (14), Test Code #033682 to this request. If thisis not the testing you wished to receive on this specimen, pleasecontact the [facility] rp Client Inquiry/Technical Services Departmentto clarify the test order. We appreciate your business. : Jacy Osei LP SPRCS (Normal) Comments: PATIENT WAS FASTINGPERFORMED BY: [facility]6370 [facility] [id number] 17 Default Comments: A hand-written panel/profile was received from your office. Inaccordance with the [facility] Ambiguous Test Code Policy dated February2003, we have completed your order by using the closest currentlyor formerl y recognized AMA panel. We have assigned Lipid Panel,Test Code #623476 to this request. If this is not the testing youwished to receive on this specimen, please contact the [facility]itorClient Inquiry/Techni burak Services Department to clarify the testorder. We appreciate your business. :17 Comp. Metabolic Panel (14) Comments: PATIENT WAS FASTINGPERFORMED BY: [facility]6370 [facility] [id number] ALT (SGPT) 21 [iU]/L (Normal) Range: 0-44 [...] Lipid Panel Comments: PATIENT WAS FASTINGPERFORMED BY: [facility] [place]6370 [facility] [id number]; non-emergent till apt LDL Cholesterol Calc 95 mg/dL (Normal) Range: 0-99 VLDL Cholesterol Burak 21 mg/dL (Normal) Range: 5-40 HDL Cholesterol 33 mg/dL (Abnormal) Comments: According to ATP-III Guidelines, HDL-C >59 mg/dL is considered anegative risk factor for CHD. Triglycerides 107 mg/dL (Normal) Range: 0-149 Cholesterol, Total 149 mg/dL (Normal) Range: 100-199 :17 Prostate-Specific Ag, Serum Comments: PATIENT WAS FASTINGPERFORMED BY: [facility]ymseeRaritan Bay Medical CenterVsduxp7613 [facility] [id number] Prostate Specific Ag, 1.0 ng/mL (Normal) Range: 0.0-4.0 Serum Comments: EpiBone ECLIA methodology. .According to the [place] [employer], Serum PSA shoulddecrease and remain at undetectable levels after radicalprostatectomy. The AUA defines biochemical recurrence as an initialPSA value 0.2 ng/mL or greater followed by a subsequent confirmatoryPSA value 0.2 ng/mL or greater.Values obtained with d ifferent assay methods or kits cannot be usedinterchangeably. Results cannot be interpreted as absolute evidenceof the presence or absence of malignant disease. 65-Xrf-677924:57 CBC W/Diff, Automated Comments: Test performed at:[facility] Zeqflcvvam[address] [place], [place] [address] Absolute Lymph 1.54 {X10_3/ul} (Normal) Range: 0.83-4.51 [...] 4.6-6.2 WBC 6.1 K/mm3 (Normal) Range: 4.4-11.0 23-Gve-882445:57 Comprehensive Metabolic Profil Comments: Test performed at:[facility] Workunwxvl[address] [place], [place] [address] GAP 7 (Normal) Range: 5-15 CO2 29.0 [...] 7-18 GLU 81 mg/dL (Normal) Range: 70-110 04-Qwb-885207:58 CBC W/Diff, Automated Comments: Test performed at:[facility] T[address]uswvzxwc33[address] [place] [address] Absolute Lymph 1.35 {X10_3/ul} (Normal) Range: 0.83-4.51 [...] 4.6-6.2 WBC 6.9 K/mm3 (Normal) Range: 4.4-11.0 28-Uhi-456688:58 Comprehensive Metabolic Profil Comments: Test performed at:[facility] Rogtmxapso7923 [facility] [place], [place] [address] GAP 7 (Normal) Range: 5-15 CO2 29.0 [...] :27 CBC W/Diff, Automated Comments: Test performed at:[facility] Ksfcsmrovz9606 [place], [place] [address] Absolute Lymph 1.27 {X10_3/ul} (Normal) Range: 0.83-4.51 [...] 4.6-6.2 WBC 6.2 K/mm3 (Normal) Range: 4.4-11.0 20-Qlz-97008:27 Comprehensive Metabolic Profil Comments: DR VALLE ORDERED CMP ABD CBCTest performed at:[facility] [address]wcwdvn[address] [place], [place] [address] GAP 5 (Normal) Range: 5-15 CO2 30.0 [...] 7-18 GLU 90 mg/dL (Normal) Range: 70-110 89-Glw-76708:27 Lipid Profile Comments: DR VALLE ORDERED CMP ABD CBCTest performed at:[facility] [address] [place] [address] VLDL 17 mg/dL (Normal) Range: [...] 200-240 mg/dL Borderline >240 mg/dL High Risk 23-Upv-582366:25 Crystals, Body Fluid Comments: Comments: ArthrocentesisComments: ArthrocentesisTest performed at:[facility] Pfcafecapc4632 [place] [address] PATH REV May foll (Normal) SOURCE/BF SYNOVIAL (Normal) CRYSTALS/BF Absent (Normal) 37-Vss-208398:25 Glucose, Body Fluid Comments: Comments: ArthrocentesisTest performed at:[facility] Zapzcoxrcy2963 [place] [address] GLU,BF 10 mg/dL (Normal) 29-Pmj-460168:25 Protein, Body Fluid Comments: Comments: ArthrocentesisTest performed at:[facility] Afyxrwoxbm79[address] [place] [address] PROTEIN,BF 4.0 g/dL (Normal) :29 CMP GAP 5 (Normal) Range: 5-15 CO2 [...] CHOL 117 mg/dL (Normal) Comments: <200 mg/dL Ksvtnqcgj488-930 mg/dL Borderline>240 mg/dL High Risk :20 PSA 1.02 ng/mL (Normal) Range: 0.00-4.00 Comments: This test was performed using the TPSA assay method for theDiRoambi chemistry system. Values obtained with differentassay methods cannot be used interchangably.When changing PSA assays in the course of monitoring apatient, additional sequential testing should be carriedout to confirm baseline values. 21-Uso-296635:02 CBCD ALC 1.41 {X10_3/ul} (Normal) Range: 0.83-4.51 [...] 4.6-6.2 WBC 5.7 K/mm3 (Normal) Range: 4.4-11.0 94-Mdu-051391:02 CMP GAP 4 (Abnormal) Range: 5-15 CO2 [...] 7-18 GLU 93 mg/dL (Normal) Range: 70-110 79-Ord-402904:08 CBCD ALC 0.86 {X10_3/ul} (Normal) Range: 0.83-4.51 [...] 7-18 GLU 84 mg/dL (Normal) Range: 70-110 83-Uba-96655:22 LIPID VLDL 15 mg/dL (Normal) Range: 5-40 [...] CHOL 109 mg/dL (Normal) Comments: <200 mg/dL Qezznirir628-042 mg/dL Borderline>240 mg/dL High Risk 17-Jul-20139:13 DANIELLE CULTURE-OTHER (67005) Comments: PATIENT NOT FASTINGPERFORMED BY: [facility]CoRaritan [facility] Medical CenterJrfdou6290 [facility] [id number] Information: SRC:THRT [id number] Result 1 RRF (Normal) Comments: Routine respiratory kaden Upper Respiratory Culture Final report (Normal) 2-Fvo-549106:27 Rapid Strep Test, Office (53163) Rapid Strep Test, Office Negative (Normal) 88-Urv-78806:12 CMP GAP 5 (Normal) Range: 5-15 CO2 [...] CHOL 149 mg/dL (Normal) Comments: <200 mg/dL Qcdfymbti979-334 mg/dL Borderline>240 mg/dL High Risk :29 CBCD [...] CHOL 143 mg/dL (Normal) Comments: <200 mg/dL Mcfxcqbec499-528 mg/dL Borderline>240 mg/dL High Risk TRIG 66 [...] D deficiency has been defined by the [place] of[place]icine and an Endocrine Society practice guideline as alevel of serum 25-OH vitamin D less than 20 ng/mL (1,2).The Endocrine Society went on to further define vitamin Dinsufficiency as a level between 21 and 29 ng/mL (2).1. IOM ([place] of [employer]). 2010. Dietary reference intakes for calcium and D. [place]: The National Academies Press.2. Melanie MF, Evans GARG, Lora CRONIN, et al. Evaluation, treatment, and prevention of vitamin D deficiency: an Endocrine Society clinical practice guideline. JCEM. 2010; 96(7): 1911-30.Performed at: [place] [id number] Director: Abdi Navarrete PhD, Phone: [phone] :25 CBCD Comments: DR CAI ORDERED CMP [...] 7-18 GLU 90 mg/dL (Normal) Range: 70-110 08-Vav-76958:25 LIPID Comments: DR CAI ORDERED CMP LIPIDDR [...] Very High > or = 500 mg/dL 4-Mcb-283482:36 CBCMD Comments: DR VALLE ORDERED CMP CBCDDR [...] Please note: Revised HEMOGLOBIN REFERENCE RANGES Reference [facility] effective 03/13/12.Please note: Revised HEMOGLOBIN REFERENCE RANGES Reference [facility] effective 03/13/12. RBC 4.86 {M/mm3} (Normal) Range: 4.6-6.2 WBC 6.3 K/mm3 (Normal) Range: 4.4-11.0 :36 CMP Comments: DR VALLE ORDERED CMP CBCDDR [...] 7-18 GLU 93 mg/dL (Normal) Range: 70-110 :36 LIPID Comments: DR VALLE ORDERED CMP CBCDDR [...] 200-240 mg/dL Borderline >240 mg/dL High Risk 9-Slq-593315:36 PSA 0.99 ng/mL (Normal) Comments: DR VALLE ORDERED CMP CBCDDR AYALA ORDERED CMP PSA CBCMD LIPID Range: 0.00-4.00 Comments: NEW TEST ASSAY METHOD JANUARY 01, 2012This test was performed using the TPSA assay method for theCoolture chemistry system. Values obtained with differentassay methods cannot be used interchangably.When ch anging PSA assays in the course of monitoring apatient, additional sequential testing should be carriedout to confirm baseline values. :09 CBCD Comments: ORDERED LIPID CMPDRShahla VALLE ORDERED [...] 4.6-6.2 WBC 5.9 K/mm3 (Normal) Range: 4.4-11.0 97-Ekv-422853:09 CMP Comments: ORDERED LIPID CMPDR. LEONARD ORDERED [...] 0.8-1.3 GLU 89 mg/dL (Normal) Range: 70-110 01-Kia-132312:09 LIPID Comments: ORDERED LIPID CMPDRShahla VALLE ORDERED CMP CBCD VITD VLDL 21 [...] 200-240 mg/dL Borderline >240 mg/dL High Risk 07-Jvu-739738:09 VITD 40.4 ng/mL (Normal) Comments: ORDERED LIPID CMPDR. LEONARD ORDERED CMP CBCD VITD Range: 30.0-100.0 Comments: Vitamin D deficiency has been defined by the [place] of[place] and an Endocrine Society practice guideline as alevel of serum 25-OH vitamin D less than 20 ng/mL (1,2).The Endocrine Society went on to further define vitamin Dinsufficiency as a level between 21 and 29 ng/mL (2).1. IOM ([place] [employer]). 2010. Dietary reference intakes for calcium and D. [place]: The National Academies Press.2. Melanie MF, Evans GARG, Lora CRONIN, et al. Evaluation, treatment, and prevention of vitamin D deficiency: an Endocrine Society clinical practice guideline. JCEM. 2010; 96(7): 1911-30. .Effective October 16, 2011, Vitamin D, 25 Hydroxy specimen requirements will change to serum only.Performed at: [facility] Lab[address] [id number] Director: Mirna Gan MD, Phone: [phone] 66-Ttj-73458:26 CBCD Comments: DR CAI ORDERED LIPID,LIVERDR LEONARD [...] :26 LIPID Comments: DR CAI ORDERED LIPID,LIVERDR VALLE ORDERED CMP,CBCD HDL 29 mg/dL (Abnormal) [...] PERFORMED FROM THISSPECIMEN. PHYSICIAN ORDER REQUIRED. CALL [facility] FORTHIS REFLEX TESTING. [phone] :15 ANEX PANEL AIRBRUSH ARTIST AB 47 AU/mL (Normal) ANTI-COOK AB 12 AU/mL (Normal) :15 ANTI JO1 ANTI KATERIN 21 AU/mL (Normal) :15 ANTI SCL 70 ANTI-SCL 70 15 AU/mL (Normal) :15 ANTI-CCP 691948 3 {units} (Normal) Range: 0-19 Comments: Negative [...] 1.002-1.030 COLOR YELLOW (Normal) :15 HB CORE [id number] SeeNote (Normal) Comments: Result: Negative Performed at: - [facility] [address] [id number] Director: Mirna Gan MD, Phone: [phone] at: [facility] LabCo[address] [id number] Director: Terrence Moreno MD, Phone: [phone] at: [facility] [id number] Director: Viral Maya PhD, Phone: [phone] :15 HBsAg 6510 HB SURF AG 6510 SeeNote (Normal) Comments: Result: Negative :15 HEBSAB 6395 < 0.1 (Normal) Range: 0.00-0.99 Comments: Status of Immunity Anti-HBs Level Inconsistent with Immunity 0.00 - 0.99 Consistent with Immunity >0.99 . An Index Value of 1.00 is equivalent to 10 mIU/mL. However the magnitude of the Index Value is not indicative of the total amount of antibody present. :15 HEP C AB 616984 <0.1 (Normal) Range: 0.0-0.9 Comments: Negative: < [...] of HLA Laboratory Dr Viral Maya, PhD :15 PROT+CRE RATIO PROT:CRE RATIO <TEST NOT PERFORMED> {mg/g_CRE} (Normal) Range: 0-200 PROTEIN,UR.RAN. < 6.0 mg/dL (Normal) UR CREAT 17.0 mg/dL (Normal) :15 SJOGREN'S SSA 229 AU/mL (Abnormal) :15 SJOGRENS SSB SJOGREN'S SSB 18 AU/mL (Normal) :15 VIT D,25 82168 46.3 ng/mL (Normal) Range: 32.0-100.0 Comments: Recent studies consider the lower limit of 32.0 ng/mL to nicanor threshold for optimal health.Aleks LOUIS. J Nutr. 2004;135(2):317-22. :17 AMANDEEP DIR SEMI-QL AMANDEEP DIRECT 261 AU/mL (Abnormal) Comments: REFLEX AMANDEEP PANEL TESTING CAN BE PERFORMED FROM THISSPECIMEN. PHYSICIAN ORDER REQUIRED. CALL [facility] FORTHIS REFLEX TESTING. [phone] 57-Vyd-736579:17 ANTI-dsDNA AB 9 {IU/mL} (Normal) :17 C-REACTIVE PROT < 2.90 mg/L (Normal) Range: 0.0-3.0 Comments: C-Reactive Protein (CRP) provides useful information for thediagnosis, therapy and monitoring of inflammatory processesand associated diseases. For the evaluation of Relative Riskfor Cardiovascular Dise ase, a High Sensitivity CRP (HSCRP)should be ordered. 54-Rlp-841710:17 CBCD,SMEAR DIFF CELLS COUNTED 100 (Normal) EOS [...] 11.6-14.6 WBC 6.0 K/mm3 (Normal) Range: 4.4-11.0 82-Fko-647925:17 COMP METABOLIC GAP 4 (Abnormal) Range: 5-15 [...] T PROT 6.6 g/dL (Normal) Range: 6.4-8.2 17-Gwh-104446:17 COMPLETE UA BACTERIA 0 SEEN {/hpf} (Normal) [...] 1.0 CLARITY CLEAR (Normal) COLOR YELLOW (Normal) 66-Ebp-141149:17 ESR SED RATE 1 mm/h (Normal) Range: 0-20 35-Lhl-358217:17 LIPID HDL 28 mg/dL (Abnormal) Comments: Reference [...] CHOL 191 mg/dL (Normal) Comments: <200 mg/dL Olvplnref598-342 mg/dL Borderline>240 mg/dL High Risk 36-Byt-266289:17 PSA, SCREEN 0.6 ng/mL (Normal) Range: 0.0-4.0 63-Pof-590584:17 RHEUMATOID FAC < 10.0 {IU/mL} (Normal) Plan [...] hyperlipidemia Planned Observations TSH (THYROID STIMULATING HORMONE) (43665)Indication: Thyromegaly On: :26 Request THYROXINE FREE (69575)Indication: Thyromegaly On: :26 Request FREE TRIDOTHYRONINE (T3) (49781)Indication: Thyromegaly On: :26 Request CBC W/AUTO DIFF WBC (59924)Indication: Other hyperlipidemia On: :26 Request METABOLIC PANEL, COMPREHENSIVE (69442)Indication: Other hyperlipidemia On: :26 Request LIPID PANEL (74929)Indication: Other hyperlipidemia On: 04-Mkr-459599:25 Request TSH (55754)Indication: Hyperthyroidism On: 50-Szn-454790:04 Request METABOLIC PANEL, COMPREHENSIVE (95936)Indication: Other hyperlipidemia On: 18-Udb-277777:04 Request LIPID PANEL (34436)Indication: Other hyperlipidemia On: 02-Oob-106608:04 Request Urine Drug Screen -Medicare (Office - Urine Drug Screen 9 Panel) (66770)Indication: Attention deficit disorder of adult On: 02-Ndi-713924:46 Request Comments: appropriate results positive for amphetamine CBC W/AUTO DIFF WBC (84495)Indication: Memory loss On: 24-Wbf-978895:08 Request METABOLIC PANEL, COMPREHENSIVE (92164)Indication: Memory loss On: 40-Jax-361811:08 Request LIPID PANEL (63753)Indication: Other hyperlipidemia On: 33-Jbk-786155:08 Request TSH (14968)Indication: Hyperthyroidism On: 55-Mrb-187538:07 Request PSA (PROSTATE SPECIFIC ANTIGEN) (V76.44)Indication: Encounter for screening for malignant neoplasm of prostate (Renamed from Screening for prostate cancer) On: 96-Hvq-985941:01 Request HEPATITIS C ANTIBODY (05577)Indication: Liver function abnormality On: 7-Uym-509636:18 Request CBC W/AUTO DIFF WBC (44750)Indication: Liver function abnormality On: 02-Aad-935189:00 Request TSH (99696)Indication: Hyperthyroidism On: 84-Jbg-262493:59 Request METABOLIC PANEL, COMPREHENSIVE (98109)Indication: Liver function abnormality On: 71-Zer-833469:58 Request LIPID PANEL (03749)Indication: Other hyperlipidemia On: 38-Xwx-826598:58 Request METABOLIC PANEL, COMPREHENSIVE (06391)Indication: Liver function abnormality On: 25-Qhr-486679:09 Request CBC W/AUTO DIFF WBC (31913)Indication: Anxiety On: 88-Ssd-77406:41 Request LIPID PANEL (38373)Indication: Other hyperlipidemia On: :30 Request TSH (67471)Indication: Hyperthyroidism On: :29 Request HEPATITIS C ANTIBODY (01499)Indication: Encounter for hepatitis C virus screening test for high risk patient On: 74-Cry-32478:44 Request CBC W/AUTO DIFF WBC (68545)Indication: Abnormal C-reactive protein On: 6-Gvf-438270:16 Request METABOLIC PANEL, COMPREHENSIVE (53088)Indication: Other hyperlipidemia On: 7-Jio-293354:15 Request LIPID PANEL (82718)Indication: Other hyperlipidemia On: 4-Mdk-891549:15 Request C-REACT PROT HIGH SENS(hsCRP) (63986)Indication: Abnormal C-reactive protein On: 1-Ipt-829980:15 Request PSA (PROSTATE SPECIFIC ANTIGEN) (V76.44)Indication: Encounter for screening for malignant neoplasm of prostate (Renamed from Screening for prostate cancer) On: 16-Ody-318554:16 Request CBC with auto diff (56624)Indication: Memory loss On: :14 Request METABOLIC PANEL, COMPREHENSIVE (13216)Indication: Memory loss On: 46-Nqq-077655:14 Request T4, FREE (THYROXINE) (55601)Indication: Hyperthyroidism On: :14 Request T3, FREE (TRIDOTHYRONINE) (62471)Indication: Hyperthyroidism On: 10-Rpb-198816:14 Request C-REACT PROT HIGH SENS(hsCRP) (34456)Indication: Abnormal C-reactive protein On: :14 Request LIPID PANEL (67060)Indication: Other hyperlipidemia On: :11 Request TSH (14422)Indication: Hyperthyroidism On: :11 Request T4, FREE (THYROXINE) (04986)Indication: Hyperthyroidism On: : Request T3, FREE (TRIDOTHYRONINE) (97628)Indication: Hyperthyroidism On: : Request TSH (80065)Indication: Hyperthyroidism On: :13 Request Vitamin D Hydroxy (30362)Indication: Memory loss On: : Request CBC W/AUTO DIFF WBC (47013)Indication: Other hyperlipidemia On: :22 Request LIPID PANEL (25335)Indication: Other hyperlipidemia On: : Request METABOLIC PANEL, COMPREHENSIVE (79755)Indication: Other hyperlipidemia On: : Request C-REACT PROT HIGH SENS(hsCRP) (51853)Indication: Abnormal C-reactive protein On: : Request T4, FREE (THYROXINE) (78541)Indication: Abnormal TSH On: :16 Request T3, FREE (TRIDOTHYRONINE) (98286)Indication: Abnormal TSH On: :16 Request TSH (41221)Indication: Abnormal TSH On: 6-Oxv-975879:16 Request CBC W/AUTO DIFF WBC (82120)Indication: Gastroesophageal reflux disease without esophagitis On: :45 Request METABOLIC PANEL, COMPREHENSIVE (39228)Indication: Other hyperlipidemia On: :45 Request LIPID PANEL (52610)Indication: Other hyperlipidemia On: :44 Request CALCIUM SERUM (58877)Indication: Hypocalcemia On: 85-Lgh-02906:00 Request PHOSPHORUS (18299)Indication: Hypocalcemia On: :59 Request PARATHORMONE (12215)Indication: Hypocalcemia On: :59 Request Vitamin D Hydroxy (33761)Indication: Hypocalcemia On: :59 Request TSH (60072)Indication: Anxiety On: :38 Request METABOLIC PANEL, COMPREHENSIVE (49254)Indication: Other hyperlipidemia On: :38 Request LIPID PANEL (08520)Indication: Other hyperlipidemia On: :33 Request BACT CULTURE ANY-ANAEROBIC (36190)Indication: Sore throat and laryngitis On: :49 Request Rapid Strep Test, Office (33965)Indication: Sore throat and laryngitis On: :48 Request Rapid Flu (01308 x 2)Indication: Fever and chills On: 10-Ecv-648323:48 Request PSA (PROSTATE SPECIFIC ANTIGEN) (V76.44)Indication: Screening for prostate cancer On: 1-Igh-930780:03 Request METABOLIC PANEL, COMPREHENSIVE (08251)Indication: Other hyperlipidemia On: 4-Lfs-399969:03 Request LIPID PANEL (27820)Indication: Other hyperlipidemia On: 2-Ajl-407640:03 Request CBC W/AUTO DIFF WBC (14353)Indication: Elevated blood-pressure reading without diagnosis of hypertension On: :40 Request METABOLIC PANEL, COMPREHENSIVE (80436)Indication: Elevated blood-pressure reading without diagnosis of hypertension On: 2-Qsj-196150:40 Request LIPID PANEL ([id number])Indication: Other hyperlipidemia On: 3-Ukl-331536:40 Request PSA (PROSTATE SPECIFIC ANTIGEN) (V76.44)Indication: screening On: :31 Request METABOLIC PANEL, COMPREHENSIVE (16710)Indication: Other hyperlipidemia On: 4-Ynm-933724:30 Request LIPID PANEL (31054)Indication: Other hyperlipidemia On: 0-Bdo-611913:29 Request METABOLIC PANEL, COMPREHENSIVE (73267)Indication: Other hyperlipidemia On: :56 Request PSA (PROSTATE SPECIFIC ANTIGEN) (14691)Indication: Screening for prostate cancer On: 5-Ewv-087403:28 Request PSA (PROSTATE SPECIFIC ANTIGEN) (V76.44)Indication: Screening for prostate cancer On: :25 Request METABOLIC PANEL, COMPREHENSIVE (08334)Indication: Anxiety On: :25 Request LIPID PANEL ([id number])Indication: Other hyperlipidemia On: 19-Udu-799749:00 Request HEPATIC FUNCTION PANEL (31747)Indication: Other hyperlipidemia On: 52-Mwm-531690:00 Request METABOLIC PANEL, COMPREHENSIVE (05621)Indication: Other hyperlipidemia On: 19-Goz-667052:32 Request LIPID PANEL ([id number])Indication: Other hyperlipidemia On: 84-Mry-104669:31 Request METABOLIC PANEL, COMPREHENSIVE (04594)Indication: Elevated blood-pressure reading without diagnosis of hypertension On: :23 Request LIPID PANEL ([id number])Indication: Other hyperlipidemia On: 01-Pog-575663:23 Request CALCIUM SERUM (10952)Indication: Hypocalcemia On: :30 Request PARATHORMONE (19838)Indication: Hypocalcemia On: 41-Ooa-019807:30 Request PHOSPHORUS ([id number])Indication: Hypocalcemia On: :29 Request TSH (76811)Indication: Hypocalcemia On: :29 Request Vitamin D Hydroxy (58325)Indication: Hypocalcemia On: 33-Ndj-872911:29 Request LIPID PANEL (73252)Indication: Other hyperlipidemia On: :44 Request METABOLIC PANEL, COMPREHENSIVE ([id number])Indication: Other hyperlipidemia On: 01-Wem-143555:44 Request PSA (PROSTATE SPECIFIC ANTIGEN) (V76.44)Indication: Screening for prostate cancer On: 87-Xrl-316715:09 Request LIPID PANEL (03303)Indication: Other hyperlipidemia On: 27-Nqn-673494:08 Request CBC WITH MANUAL DIFF ([id number])Indication: Elevated blood-pressure reading without diagnosis of hypertension On: 18-Hhr-742138:08 Request METABOLIC PANEL, COMPREHENSIVE ([id number])Indication: Elevated blood-pressure reading without diagnosis of hypertension On: 21-Fii-161421:08 Request METABOLIC PANEL, COMPREHENSIVE (53751)Indication: Anxiety On: 39-Aid-365177:46 Request LIPID PANEL ([id number])Indication: Other hyperlipidemia On: 60-Oiq-290383:46 Request PSA (PROSTATE SPECIFIC ANTIGEN) (V76.44)Indication: Screening for prostate cancer On: 21-Nux-346839:09 Request HEPATIC FUNCTION PANEL ([id number])Indication: Other hyperlipidemia On: 88-Gdi-442985:09 Request LIPID PANEL ([id number])Indication: Other hyperlipidemia On: 89-Nem-802336:09 Request PSA (PROSTATE SPECIFIC ANTIGEN) (V76.44)Indication: Screening for prostate cancer On: :11 Request HEPATIC FUNCTION PANEL ([id number])Indication: Other hyperlipidemia On: :10 Request LIPID PANEL ([id number])Indication: Other hyperlipidemia On: 9-Gzr-743226:10 Request HEPATIC FUNCTION PANEL (56439)Indication: Other hyperlipidemia On: :04 Request LIPID PANEL (72653)Indication: Other hyperlipidemia On: 65-Viv-568572:04 Request PSA (PROSTATE SPECIFIC ANTIGEN) (V76.44)Indication: Screening for prostate cancer On: 7-Izk-344122:55 Request URINALYSIS, W/ MICRO ([id number])Indication: Osteoarthritis, unspecified osteoarthritis type, unspecified site On: 5-Ymu-222375:55 Request METABOLIC PANEL, COMPREHENSIVE (21854)Indication: Osteoarthritis, unspecified osteoarthritis type, unspecified site On: :54 Request CBC WITH MANUAL DIFF ([id number])Indication: Osteoarthritis, unspecified osteoarthritis type, unspecified site On: 4-Lvl-323356:54 Request LIPID PANEL ([id number])Indication: Other hyperlipidemia On: 0-Bxx-305224:54 Request AMANDEEP (ANTINUCLEAR ANTIBODY) ([id number])Indication: Osteoarthritis, unspecified osteoarthritis type, unspecified site On: 9-Nfu-040238:53 Request RHEUMATOID FACTOR-QUANT ([id number])Indication: Osteoarthritis, unspecified osteoarthritis type, unspecified site On: 1-Jfy-769660:53 Request C-REACTIVE PROTEIN ([id number])Indication: Osteoarthritis, unspecified osteoarthritis type, unspecified site On: :53 Request SED RATE ERYTHROCYTE ([id number])Indication: Osteoarthritis, unspecified osteoarthritis type, unspecified site On: 2-Rrv-204319:53 Request Planned Encounters Medical; [facility] 3 Month FU - On: 21-Oct-2018 15:30 [facility] Fast DO, Ana A Fast DO, Ana A Medical; ADD EST VISIT - On: 27-Jan-2019 15:30 [facility] Mango HICKEY, Ingrid Lee Planned Procedures Radiology - [...] A ELECTROCARDIOGRAM, COMPLETE (ECG) On: 22-Jul-2018 Intent ([id number])By: Ana Cai DO A Ayala Comments: ekg showed normal sinus rhythym, normal axis, no acute st/t wave changes DO, Ana A Flu Vaccine (Quadrivalent) 19778Xw: On: 30-Apr-2018 Intent Fast DO, Ana A Fast DO, Ana A Comments: Lot #[id number]-L dltd, IMDose prefilled syringegiven by: HERNANDO Velez reviewed and ABN signed Flu Vaccine (Quadrivalent) [id number]: On: 05-Jun-2017 Intent Fast DO, Ana A Fast DO, Ana A Comments: lot: [id number]: 01/28/18ite/route: L jefe, IMamt: 0.5mlVIS and ABN signed when applicableChelsKANG spicer PNEUM VAC ADLT/IMUMNOSPR, SBC/INTRM On: 09-Apr-2017 Intent ([id number])By: Ayala ZAMAN Ana A Ayala Comments: lot: [id number]: 09/20/18site/route: L del/IMamt: 0.5mLVIS signed when applicableCheKANG oropeza DO, Ana A ELECTROCARDIOGRAM, COMPLETE (ECG) On: 09-Apr-2017 Intent ([id number])By: Ayala ZAMAN Ana A Ayala Comments: ekg showed normal sinus rhythym, normal axis, no acute st/t wave changes DO, Ana A THYROID SCAN UPTAKE ([id number])By: Ayala On: 25-Aug-2016 Intent DO, Ana A Fast DO, Ana A Flu Vaccine (Quadrivalent) [id number]: On: 15-May-2016 Intent Fast DO, Ana A Fast DO, Ana A Comments: Lot #:[id number] date:02/09/17mount given:0.5mlRoute: IMSite given: left dewltoidGiven by: LEANDRO Perez ADMINISTRATION OF INFLUENZA VIRUS On: 15-May-2016 Intent VACCINE ([id number])By: Fast DO, Ana A Fast DO, Ana A CT - Brain/Head (IV Contrast On: 03-Apr-2016 Intent Needed)By: Fast DO, Ana A Fast DO, Ana A ELECTROCARDIOGRAM, COMPLETE (ECG) On: 03-Apr-2016 Intent ([id number])By: Fast DO, Ana A Fast Comments: ekg showed normal sinus rhythym, normal axis, no acute st/t wave changes sinus surjit DO, Ana A Cartoid DopplerBy: Fast DO, Ana A On: 19-Jul-2015 Intent Fast DO, Ana A Flu Vaccine (Quadrivalent) 32212Oh: On: 19-Jul-2015 Intent Fast DO, Ana A Fast DO, Ana A Comments: lot [id number]: 02/10/2016site/route L jefe, IMamt 0.5mlVIS and ABN signed when applicableChelsea, ORDER RUNNER ADMINISTRATION OF INFLUENZA VIRUS On: 19-Jul-2015 Intent VACCINE ([id number])By: Fast DO, Ana A Fast DO, Ana A Aerosol Treatment ([id number])By: Ruchi On: 30-Jun-2015 Janice Jackson DO Comments: more a.e no wheeze -- really better Radiology - Chest- PA and LatBy: On: 30-Jun-2015 Janice Velasco DO Cartoid DopplerBy: Ayala DO Ana A On: 18-May-2014 Intent Fast DO, Ana A FLU VAC, SPLIT, >3 YEARS, INTRAMUSC On: 18-May-2014 Intent ([id number])By: Ayala ZAMAN Ana A Ayala Comments: Lot #:[id number] date:04/2016Amount given:0.5mlRoute: IMSite given: left deltoidGiven by: LEANDRO Perez DO, Ana A IMMUNIZ ADMNIN, 1 VAC, SNGL/COMBO On: 18-May-2014 Intent ([id number])By: Fast DO, Ana A Fast DO, Ana A Eprescribed prescriptions On: 17-Nov-2013 Intent ([id number])By: Fast DO, Ana A Fast DO, Ana A Solu- Medrol Injection, 125mg On: 05-Aug-2013 Intent ([id number])By: Fast DO, Ana A Fast Comments: Lot #[id number]-Zgnk-mlceufafp syringegiven by:HERNANDO Dixon signed DO, Ana A Aerosol Treatment ([id number])By: Ayala On: 05-Aug-2013 Intent DO, Ana A Fast DO, Ana A Spirometry ([id number])By: Ayala DO, On: 05-Aug-2013 Intent Ana A Fast DO, Ana A Comments: good effort and curve mod obst Pulse Oximetry ([id number])By: Ayala ZAMAN, On: 05-Aug-2013 Intent Ana A Fast DO, Ana A Comments: 98 Radiology - Chest- PA and LatBy: On: 05-Aug-2013 Intent Fast DO, Ana A Fast DO, Ana A Eprescribed prescriptions On: 05-Aug-2013 Intent ([id number])By: Millie Christine FLU VAC, SPLIT, >3 YEARS, INTRAMUSC On: 16-Jul-2013 Intent ([id number])By: mAaris Becerra Comments: Lot #:[id number] date:mount given:0.5mlRoute: IMSite given: L dltdVIS and ABN signedGiven by: LEANDRO Perez IMMUNIZ ADMNIN, 1 VAC, SNGL/COMBO On: 16-Jul-2013 Intent ([id number])By: Amaris Becerra Eprescribed prescriptions On: 16-Jul-2013 Intent ([id number])By: Amaris Becerra EKG ([id number])By: Amaris Becerra On: 24-Feb-2013 Intent Comments: ekg [...] SPLIT, >3 YEARS, INTRAMUSC On: 24-May-2012 Intent ([id number])By: Julissa Salomon LPN Comments: Lot #[id number]/30/13Site-left deltoidgiven by: Carlos Salomon LPN IMMUNIZ ADMNIN, 1 VAC, SNGL/COMBO On: 24-May-2012 Intent ([id number])By: Julissa Salomon LPN Cartoid DopplerBy: Fast DO, Ana A On: 25-Mar-2012 Intent Fast DO, Ana A Comments: may EKG ([id number])By: Amaris Becerra On: 30-Oct-2011 Intent Comments: ekg showed normal sinus rhythym, normal axis, no acute st/t wave changes TD Injection , IM (85630)By: On: 06-Jun-2011 Intent Amaris Becerra Comments: [facility] at [facility] FLU VAC, SPLIT, >3 YEARS, INTRAMUSC On: 06-Jun-2011 Intent ([id number])By: Amaris Becerra Comments: Lot #:[id number] date:mount given:0.5mlRoute: IMSite given:left deltGiven by: LEANDRO Perez IMMUNIZ ADMNIN, 1 VAC, SNGL/COMBO On: 06-Jun-2011 Intent ([id number])By: Amaris Becerra Cartoid DopplerBy: Fast DO, Ana A On: 25-Apr-2011 Intent Fast DO, Ana A EKG ([id number])By: Fast DO, Ana A On: 16-Feb-2010 Intent Fast DO, Ana A Comments: ekg showed [...] Anxiety : Patient Instructions Indication: Anxiety Encounters Phone Encounter On: 24-Jul-2018 12:04 Encounter Diagnosis: [...] issues: he has allergies using zyrtec mirna king singulair and wa nts to try she [...] has had some improvement- has appt with [facility] in August- he feels anxiety may be [...] for Tdap vaccination (Renamed from Need for fbujdtbwrq-faikhhc-jmpyisxvu (Tdap) vaccine, adult/adolescent), Gastroesophageal reflux disease without [...] on augmentin f or ear issues from [facility] x1 week- sunday throat sore all the [...] disorder (780.50) [facility] CenterOR[facility] ELIZALDE; a guarantor
--- OUTSIDE RECORDS SUMMARY | 2018-10-30 18:40 | XMS RPT_ITS | Continuity of Care Document ---
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 [...] Refills: 1 Ordered:24-Dec-2017 Ana Cai DO, DO, Ana A Start : 24-Dec-2017 Active VITAMIN C, 500MG (Oral Tablet) 1 tab qd during winter months for 0 days Refills: 0 Ordered:16-Nov-2014 Manjose daniel ChelseaActive AMOXICILLIN-POT CLAVULANATE, 875-125MG (Oral Tablet) 1 (one) Tablet Tablet bid for 0 days Quantity: 20 {Tablet} Refills: 0 Ordered:26-Jul-2015 Long Rae MESSER Start : 20-Apr-2015 End : 26-Jul-2015 Inactive [...] bid for 90 days Refills: 0 Ordered:30-Oct-2011 GloriacintiaAmaris chan Start : 30-Oct-2011 End : 30-Oct-2011 Discontinued TUMS, 500MG (Oral Tablet Chewable) 1 Tablet Chewable bid for 0 days Quantity: 60 {Tablet_Chewable} Refills: 0 Ordered:08-Nov-2015 GloriacintiaAmaris chan Start : 29-Jul-2012 End : 08-Nov-2015 Discontinued [...] (E83.51, 275.41) Status: Inactive as of 09-Jun-2016 [facility] Status: Resolved as of 16-Jul-2017 [facility] Status: Inactive as [...] for Tdap vaccination (Renamed from Need for bwyqbzcyek-nuhqpwa-mdmqqyjsc (Tdap) vaccine, adult/adolescent) (Z23, V06.1) Status: Inactive [...] Procedure Dates Details TDAP VACCINE >7 IM (86919) Date: 08-Nov-2015 Completed 08-Nov-2015 nasal septal deviation urgery Completed Tonsillectomy Completed uvuloplasty/palate surgery Completed Date Value Details 23-Oct-2016 Sleep Study Report Result: Comments: See Note; NOTES: [facility] [address] [place] [address] Polysomnography with NCPAP MR#: [id number] Acct: [id number] Name: ORACIO ELIZALDE Mane ep #: [id number] : 1960 56 From: Terrence Turner MD PCP: Ana Cai DO Status: REG CLI Ordering DrShahla: Terrence Turner MD Date: 10/06/16 Sex: M C DATE OF SERVICE: 10/06/2016 SCORING RULES: Respirat ory events were acquired and scored in accordance with the Recommended Standards and Specifications as outlined in the AASM Manual for the Scoring of Sleep and Associated Events ( most recent version). Please note that a reference to [facility] AHI in this report is consistent with the current Hypopnea definition according to Medicare Criteria and an AASM AHI reference is consistent with the current Hypopnea definition according to the AASM criteria and is recognized by [facility] as the RDI. PROCEDURE: The study was attended continuously by a platform power technician. Monitored parameters included left and right [...] calculated body mass index of 28, an Picabo Sleepiness Scale score of 11/24. The patient [...] when sleepy. INTERPRETING PHYSICIAN: Era Turner Jr., MMarine. Terrence Turner MD T: NTS JOB: [id number] CC: Terrence Turner MD 42 4210/[id number]/[id number] <Electronically signed by Terrence Turner MD&#62 ; Date Terrence Turner MD Co-signature (if applicable) Date Signed -Sep-2016 Thyroid Uptake Single or Mult Result: Comments: See Note; NOTES: [facility] Imaging Services [address] [place] [address] Verdana 4d Thyroid Uptake Single or Mult MR#: [id number] Acct: [id number] Name: Javon ELIZALDE Rep #: [id number] : 1960 M 56 From: Sin Brantley DO PCP: Ana Cai DO Status: REG CLI Study: Thyroid Uptake Single or Mult Date of Exam: 09/25/16 Exam# [id number] Ordering Dr: Pearce DO CLINICAL: 56-year-old male [...] at 23:21 EST Tel , Service support [phone], CC: Ana Cai DO Jute Bag Sewer: Signed 04-Apr-2016 Brain/Head W/WO Contrast Result: Comments: See Note; NOTES: [facility] Imaging Services [address] [place] [address] Verda 4d Brain/Head W/WO Contrast MR#: [id number] Acct: [id number] Name: BECKIE ELIZALDE Rep #: [id number] : 1960 M 56 From: Cuauhtemoc Vo MD PCP: Ana Cai DO Status: REG CLI Study: Brain/Head W/WO Contrast Date of Exam: 04/04/16 Exam# [id number] Ordering Dr: Ana Cai DO STUDY: CT [...] Cuauhtemoc Vo MD at 8:08 EDT Tel [phone], Service support [phone], CC: Ana Cai DO Jute Bag Sewer: Signed 16-Aug-2014 Emergency Department Summary Result: Comments: See Note; NOTES: [facility] Medical Records Department [address] [place] [address] Emergency Department Summary MR#: [id number] Acct: [id number] Name: ORACIO LOPEZ Rep #: [id number] : 1960 54 From: Donn Jacobo MD [...] given a prescription for na proxen and Exchange. He will be discharged to follow up with Dr. Pierce. DISPOSITION: Discharge. DIAGNOSES: 1. Right knee effusion: 2. Inflammatory process of right knee. Donn Jacobo MD T: NTS JOB: [id number] 08/16/14 0852 <Electronically signed by Donn Jacobo MD> Date Donn Jacobo MD CC: Ana Cai DO Date Dictated: 2208 Date Transcribed: 08/07/142208 Jute Bag Sewer: Signed 07-Aug-2014 Discharge Instruction Result: Comments: See Note; NOTES: [facility] Medical Records Department [address] [place] [address] Discharge Instruction 08/07/142205 MR#: [id number] Acct: [id number] Name: ORACIO ELIZALDE Rep #: [id number] : 1960 54 From: Donn Jacobo MD PCP: Ana Cai DO Status: REG ER ED Disposition - Plan for ED Patient: Disposition: Home Chief Complaint: Lower Ext remity Injury Discharge Problem: Effusion of left knee, 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 Call [facility] ( [phone]) or report to the closest Emergency Room. Call 911 if necessary. 08/07/144 <Electronically signed by Donn Jacobo MD> Date Donn Jacobo MD Cosigner Signature (If Indicated): Date CC: Ana Cai DO 15-Jul-2014 Carotid Duplex Ultrasound Result: Comments: See Note; NOTES: [facility] Cardiovascular Services [address] [place] [address] Carotid Duplex Ultrasound 07/10/14 0909 MR#: [id number] Acct: [id number] Dudley e: ORACIO ELIZALDE Rep #: [id number] : 1960 54 From: Robin Fabian MD Attending Dr: Ana Cai DO Status: REG CLI Ordering Dr: Ana Cai DO Date: 07/10/14 Location: [facility] Sex: M C Admitt ed: Rt. Velocities/BP [...] the left vertebral artery. Procedure Carotid Duplex 18241. The exam was diagnostic. Exam performed in department. Interp retation Summary Mild (<50%) stenosis right extracranial internal carotid. Mild (<50%) stenosis left extracranial internal carotid. Flow within the vertebral arteries is antegrade michelle aterally. Ordering Physician: Ana Cai Referring Physician: Lata Valle Performed By: SMAUEL Juan 07/15/14823 Date Robin Fabian MD CC: Ana Cai DO Da te Dictated: 07/10/14 0909 Date Transcribed: 07/15/14823 Jute Bag Sewer: Signed 15-Jul-2014 Carotid Duplex Ultrasound Result: Comments: See Note; NOTES: [facility] Cardiovascular Services [address] [place] [address] Carotid Duplex Ultrasound 07/10/14 0909 MR#: [id number] Acct: [id number] Dudley e: ORACIO ELIZALDE Rep #: [id number] : 1960 54 From: Robin Fabian MD [...] the left vertebral artery. Procedure Carotid Duplex 87667. The exam was diagnostic. Exam performed in department. Interp retation Summary Mild (<50%) stenosis right extracranial internal carotid. Mild (<50%) stenosis left extracranial internal carotid. Flow within the vertebral arteries is antegrade michelle aterally. Ordering Physician: Ana Cai Referring Physician: Lata Valle Performed By: SAMUEL Juan 07/15/14823 Date Robin Fabian MD CC: Ana Hinton te Dictated: 07/10/14908 Date Transcribed: 07/15/14823 Jute Bag Sewer: Signed 26-Jan-2014 Knee 4 or More Views Result: Comments: See Note; NOTES: [facility] Imaging Services [address] [place] [address] Radiology Report MR#: [id number] Acct: [id number] Name: TONIOORACIO Chu Rep #: [id number] : 1960 53 From: Cuauhtemoc Vo MD PCP: Ana Cai DO Status: REG CLI Study: Knee 4 or More Views Date of Exam: 01/26/14 Exam# [id number] Ordering Dr: Lata Valle MD ERIC DY: [...] Cuauhtemoc Vo MD at 13:17 EDT Tel [phone], Service support [phone], RAD/Knee 4 or More Views IM PRESSION: Degenerative arthrosis. Mild synovial thickening. Electronically Signed: Cuauhtemoc Vo MD at 13:17 EDT Tel [phone], Service support [phone], CC: Ana Cai DO; Lata Valle MD Jute Bag Sewer: Signed 26-Jan-2014 Knee 4 or More Views Result: Comments: See Note; NOTES: [facility] Imaging Services [address] [place] [address] Radiology Report MR#: [id number] Acct: [id number] Name: ORACIO ELIZALDE Rep #: [id number] : 1960 M 53 From: Cuauhtemoc Vo MD PCP: Ana Cai DO Status: REG CLI Study: Knee 4 or More Views Date of Exam: 01/26/14 Exam# [id number] Ordering Dr: Lata Valle MD ERIC DY: [...] Signed: Rosa Ambriz at 13:17 EDT Tel [phone], Service support [phone], RAD/Knee 4 or More Views IMPRESSION: Minimal synovial thickening. Electronically Sig la: Cuauhtemoc Vo MD at 13:17 EDT Tel [phone], Service support [phone], CC: Ana Cai DO; Lata Valle MD Jute Bag Sewer: Signed 29-Aug-2013 Sleep Study Report Result: Comments: See Note; NOTES: [facility] [address] [place] [address] Polysomnography with NCPAP MR#: [id number] Acct: [id number] Name: ANDRA ELIZALDE T Rep #: [id number] : 1960 53 From: Westley Porter MD PCP: Ana Cai DO Status: REG CLI Ordering DrShahla: Ana Cai DO Date: 08/21/13 Sex: M C SLEEP HISTORY: This is a CPAP titratio n study performed on this 53-year-old male with a body mass index of 28 and an Picabo Sleepiness Scale score of 12. He has [...] version). Please note that a reference to [facility] AHI in this report is consistent with the current Hypopnea definition according to Medicare Criteria and an AASM AHI refere nce is consistent with the current Hypopnea definition according to the AASM criteria. PROCEDURE: The study was attended continuously by a platform power technician. Monitored parameters included left and r [...] Study Report Result: Comments: See Note; NOTES: [facility] [address] [place] [address] Polysomnography MR#: [id number] Acct: [id number] Name: ORACIO ELIZALDE Rep #: [id number] : 1960 53 From: Terrence Turner MD PCP: Ana Cai DO Status: REG CLI Ordering Dr.: Ana Cai DO Date: 08/01/13 Sex: M C REFERRING PHYSICIAN: Dr. Cai. SLEEP HISTORY: The patient is a 53-year-old gentleman with a calculated body mass index of 28 and an Picabo Sleepiness Scale score of 12/24. He has [...] version). Please note that a reference to [facility] AHI in this report is consistent with the current Hy popnea definition according to Medicare Criteria and an AASM AHI reference is consistent with the current Hypopnea definition according to the AASM criteria. PROCEDURE: The study was attended kai nuously by a platform power technician. Monitored parameters included left and right [...] and Lateral Result: Comments: See Note; NOTES: [facility] Imaging Services [address] [place] [address] Radiology Report MR#: [id number] Acct: [id number] Name: ORACIO ELIZALDE Chu Rep #: [id number] : 1960 M 53 From: Wesley Ramirez MD PCP: Ana Cai DO Status: REG CLI Study: Chest PA and Lateral Date of Exam: 08/05/13 Exam# [id number] Ordering Dr: Ana Cai DO STUDY: X-RA [...] at 13:55 EST , Service sup port [phone], CC: Ana Cai DO Jute Bag Sewer: Signed Immunization Name Dates Details Tdap (7 [...] smoker Vital Signs Date Test Result Details 22-Pkv-086857:19 Temperature 97.1 f Comments: Method: Temporal Pulse [...] Value Details :32 CBC W/Diff, Automated Comments: [facility] [address] [place], [place], [id number] Absolute Lymph 1.42 {X10_3/ul} (Normal) Range: 0.83-4.51 [...] Range: 4.4-11.0 :32 Comprehensive Metabolic Profil Comments: [facility] [address] [place], [place], [phone] GAP 7 (Normal) Range: 5-15 CO2 28.0 [...] A.D.A. criteria.Please note revised GLUCOSE reference range oogtezzwk96/02/2018. 45-Pbz-830400:58 CBC W/Diff, Automated Comments: [facility] [address] [place], [place], [address] Absolute Lymph 1.59 {X10_3/ul} (Normal) Range: 0.83-4.51 [...] 4.6-6.2 WBC 5.9 K/mm3 (Normal) Range: 4.4-11.0 77-Cxl-900141:58 Comprehensive Metabolic Profil Comments: [facility] [address] [place], [place], [address] GAP 9 (Normal) Range: 5-15 CO2 30.0 [...] Comments: Please note revised GLUCOSE reference range uquryewbe13/02/2018. 86-Tcj-93635:24 CBC with auto diff Comments: PATIENT NOT FASTINGPERFORMED BY: [facility] Akppit88[address] [facility] [id number] Information: NURSE DRAW (27867) Immature Grans (Abs) 0.0 {x10E3/uL} (Normal) Range: [...] COMPREHENSIVE Comments: PATIENT NOT FASTINGPERFORMED BY: [facility] Qyuxhq9070 [facility] [id number] (39341) ALT (SGPT) 27 [iU]/L (Normal) Range: 0-44 [...] 6-24 Glucose 99 mg/dL (Normal) Range: 65-99 42-Msg-66095:17 CBC W/Diff, Automated Comments: [facility] [address] [place], [address] Absolute Lymph 1.70 {X10_3/ul} (Normal) Range: 0.83-4.51 [...] 4.6-6.2 WBC 5.8 K/mm3 (Normal) Range: 4.4-11.0 58-Mxh-99696:17 Comprehensive Metabolic Profil Comments: [facility] Sxxcsponbh7459 [facility] [place], [address] GAP 5 (Normal) Range: 5-15 CO2 29.0 [...] A.D.A. criteria.Please note revised GLUCOSE reference range qwcrpammy93/02/2018. 17-Dec-20176:22 CBC W/Diff, Automated Comments: [facility] [address] [place], [place], [phone] ; review at 12/24 Absolute Lymph 1.33 [...] Range: 4.4-11.0 17-Dec-20176:22 Comprehensive Metabolic Profil Comments: [facility] [address] [place], [address] GAP 7 (Normal) Range: 5-15 CO2 29.0 [...] Comments: Please note revised GLUCOSE reference range pyeiulext85/02/2018. 17-Dec-20176:22 Lipid Profile Comments: [facility] [address] [place], [place], [address](936) VLDL 23 mg/dL (Normal) Range: 5-40 LDL [...] Risk 17-Dec-20176:22 PSA,Total - Annual Screen Comments: [facility] [address] [place], [place], [address] PSA,TOT SCREEN 0.85 ng/mL (Normal) Range: 0.00-4.00 Comments: This test was performed using the TPSA assay method for the[facility] chemistry system. Values obtained with differentassay methods cannot be used interchangably.When changing PSA assays in the course of monitoring apatient, additional sequential testing should be carriedout to confirm baseline values. 17-Dec-20176:22 Thyroid Stim Hormone (TSH) Comments: [facility] [address] [place], [place], [address] TSH 1.13 {uIU/mL} (Normal) Range: 0.358-3.74 :56 CBC W/Diff, Automated Comments: [facility] [address] [place], [place], [address] Absolute Lymph 1.48 {X10_3/ul} (Normal) Range: 0.83-4.51 [...] 4.6-6.2 WBC 6.3 K/mm3 (Normal) Range: 4.4-11.0 :56 Comprehensive Metabolic Profil Comments: [facility] [address] [place], [place], [address] GAP 6 (Normal) Range: 5-15 CO2 29.0 mmol/L (Normal) Range: 21.0-32.0 CL 107 mmol/L (Normal) Range: 98-107 K 4.0 mmol/L (Normal) Range: 3.5-5.1 NA 142 mmol/L (Normal) Range: 136-145 T BILI 0.70 mg/dL (Normal) Range: 0.20-1.00 ALT 42 U/L (Normal) Range: 16-61 Comments: Please note revised ALT reference range wgmtsenbo26/28/2018. ALK P 59 U/L (Normal) Range: 45-117 [...] Comments: Please note revised GLUCOSE reference range rjaostljt95/02/2018. 99-Kjc-09444:18 CBC W/Diff, Automated Comments: [facility] [address] [place], [place], [address] ; review 09/03 Absolute Lymph 1.62 {X10_3/ul} [...] 4.6-6.2 WBC 6.0 K/mm3 (Normal) Range: 4.4-11.0 65-Zvr-23487:18 Comprehensive Metabolic Profil Comments: [facility] [address] [place], [address] GAP 6 (Normal) Range: 5-15 CO2 31.0 [...] 7-18 GLU 81 mg/dL (Normal) Range: 70-110 97-Nzp-83461:18 Lipid Profile Comments: [facility] [address] [place], [place], [address] VLDL 24 mg/dL (Normal) Range: 5-40 LDL [...] 200-240 mg/dL Borderline >240 mg/dL High Risk 10-Phn-53360:18 Thyroid Stim Hormone (TSH) Comments: [facility] [address] [place], [place], [address] TSH 0.81 {uIU/mL} (Normal) Range: 0.358-3.74 19-Nac-202402:10 CBC W/Diff, Automated Comments: [facility] [address] [place], [address] Absolute Lymph 1.62 {X10_3/ul} (Normal) [...] 4.6-6.2 WBC 7.0 K/mm3 (Normal) Range: 4.4-11.0 37-Bum-516034:10 Comprehensive Metabolic Profil Comments: [facility] [address] [place], [address] GAP 7 (Normal) Range: 5-15 CO2 30.0 [...] 7-18 GLU 90 mg/dL (Normal) Range: 70-110 49-Hvj-22152:09 CBC W/Diff, Automated Comments: [facility] [address] [place], [place], [address] ; will review at upcoming appt Absolute [...] 4.6-6.2 WBC 6.0 K/mm3 (Normal) Range: 4.4-11.0 82-Lkd-63699:09 Comprehensive Metabolic Profil Comments: [facility] [address] [place], [address] GAP 7 (Normal) Range: 5-15 CO2 32.0 [...] 7-18 GLU 89 mg/dL (Normal) Range: 70-110 98-Ztr-79396:09 Hepatitis C Antibodies Comments: [facility] (refer to report for specific site)refer to report for address and phone number; will review on 05/28 HEP C AB <0.1 {s/co_ratio} (Normal) Range: 0.0-0.9 Comments: Negative: < 0.8 Indeterminate: 0.8 - 0.9 Positive: > 0.9 The CDC recommends that a positive HCV antibody result be followed up with a HCV Nucleic Acid Amplification test (786207).Performed at: [address] [id number] Director: Jose Francisco Coates PhD, Phone: [phone] 31-Twu-21515:09 Lipid Profile Comments: [facility] [address]blm6[address] [facility] [address] [place], [place], [address] VLDL 20 mg/dL (Normal) Range: 5-40 LDL [...] 200-240 mg/dL Borderline >240 mg/dL High Risk 28-Dif-55884:09 Thyroid Stim Hormone (TSH) Comments: [facility] [address] [place], [place], [address] TSH 0.88 {uIU/mL} (Normal) Range: 0.358-3.74 :14 CBC W/Diff, Automated Comments: [facility] [address] [place], [address] Absolute Lymph 1.50 {X10_3/ul} (Normal) Range: 0.83-4.51 [...] 4.6-6.2 WBC 7.8 K/mm3 (Normal) Range: 4.4-11.0 23-Ewx-494929:14 Comprehensive Metabolic Profil Comments: [facility] [address] [place], [address] GAP 7 (Normal) Range: 5-15 CO2 28.0 [...] auto diff Comments: PATIENT NOT FASTINGPERFORMED BY: [facility] Center[facility]tyqf[facility]18 [facility] [id number] Information: NURSE DRAW (88418) Immature Grans (Abs) 0.0 {x10E3/uL} (Normal) Range: [...] PANEL, COMPREHENSIVE Comments: PATIENT NOT FASTINGPERFORMED BY: [facility] CenterLgulsa6764 [facility] [id number] ([id number]) ALT (SGPT) 52 [iU]/L (Abnormal) Range: 0-44 [...] Glucose, Serum 105 mg/dL (Abnormal) Range: 65-99 77-Iyh-368357:11 CBC W/Diff, Automated Comments: DR VALLE ORDERED CMP CBCD ONLYDR VALLE ORDERED CMP CBCD [facility] Vhjqivzqbp7733 [facility] [place], [address] Absolute Lymph 1.15 {X10_3/ul} (Normal) Range: 0.83-4.51 [...] 4.6-6.2 WBC 7.1 K/mm3 (Normal) Range: 4.4-11.0 14-Drs-698444:11 Comprehensive Metabolic Profil Comments: DR VALLE ORDERED CMP CBCD [facility] [address]wdta[address] [place], [place], [address] GAP 6 (Normal) Range: 5-15 CO2 30.0 [...] 7-18 GLU 101 mg/dL (Normal) Range: 70-110 :11 CRP Comments: DR VALLE ORDERED [facility] CBCD [facility] [address] [place], [address] C-REACTIVE PROT 4.36 mg/L (Abnormal) Range: 0.0-3.0 Comments: C-Reactive Protein (CRP) provides useful information for thediagnosis, therapy and monitoring of inflammatory processesand associated diseases. For the evaluation of Relative Riskfor Cardiovascular Dise ase, a High Sensitivity CRP (HSCRP)should be ordered. :11 Free T3 Comments: DR VALLE ORDERED [facility] CBCD [facility] [address]ft[address] [place], [address] FREE T3 2.7 pg/mL (Normal) Range: 2.18-3.98 :11 Lipid Profile Comments: [facility] [address] [place], [address] VLDL 15 mg/dL (Normal) Range: [...] - Annual Screen Comments: DR VALLE ORDERED [facility] CBCD [facility] [address]febrymwh[address] [place], [address] PSA,TOT SCREEN 0.89 ng/mL (Normal) Range: 0.00-4.00 Comments: This test was performed using the TPSA assay method for [employer] chemistry system. Values obtained with differentassay methods cannot be used interchangably.When changing PSA assays in the course of monitoring apatient, additional sequential testing should be carriedout to confirm baseline values. :11 T4 Free Direct Comments: DR VALLE ORDERED CMP CBCD [facility] [address] [place], [address] T4 FREE DIRECT 1.08 ng/dL (Normal) Range: 0.76-1.46 :11 Thyroid Stim Hormone (TSH) Comments: DR VALLE ORDERED CMP CBCD [facility] [address] [place], [place], [address] TSH 0.36 {uIU/mL} (Normal) Range: 0.358-3.74 :44 CBC W/Diff, Automated Comments: [facility] Mjpgabuqvc6155 [facility] [address] [place], [place], [address] Absolute Lymph 1.41 {X10_3/ul} (Normal) Range: 0.83-4.51 [...] 4.6-6.2 WBC 6.6 K/mm3 (Normal) Range: 4.4-11.0 97-Rtv-539321:44 Comprehensive Metabolic Profil Comments: T3F T4F TSHDR.LEONARD CMP [facility] [address]ip[address] [place], [place], [address] GAP 6 (Normal) Range: 5-15 CO2 30.0 [...] 7-18 GLU 91 mg/dL (Normal) Range: 70-110 :44 Free T3 Comments: T3F T4F TSHDR.[facility] [address] [place], [place], [address] FREE T3 2.6 pg/mL (Normal) Range: 2.18-3.98 :44 T4 Free Direct Comments: T3F T4F TSHDR.[facility] [address] [place], [place], [address] T4 FREE DIRECT 1.04 ng/dL (Normal) Range: 0.76-1.46 :44 Thyroid Stim Hormone (TSH) Comments: T3F T4F TSHDR.[facility] [address] [place], [place], [address] TSH 0.26 {uIU/mL} (Abnormal) Range: 0.358-3.74 :13 CBC W/Diff, Automated Comments: [facility] [address] [place], [place], [address] ; apt next week Absolute Lymph 1.59 [...] Range: 4.4-11.0 18-Jul-20166:13 Comprehensive Metabolic Profil Comments: [facility] [address] [place], [place], [address] GAP 1 (Abnormal) Range: 5-15 CO2 33.0 [...] 70-110 :13 CRP, High Sensitivity Cardiac Comments: [facility] [address] [place], [place], [address] CRP HIGH SENS 2.19 mg/L (Normal) Comments: Low Relative Risk of CVD <1.0 mg/L Average Relative Risk of CVD 1.0 - 3.0 mg/L High Relative Risk of CVD >3.0 mg/L :13 Lipid Profile Comments: [facility] [address] [place], [place], [id number] VLDL 23 mg/dL (Normal) Range: 5-40 LDL [...] High Risk :13 Vitamin D,25 Hydroxy Comments: [facility] [address] [place], [address] Vitamin D 25-OH 31.7 ng/mL (Normal) Comments: Vitamin D 25(OH) Status Range Deficiency <20 ng/mL (50nmol/L) Insuffciency 20 - 30 ng/mL (50 - 75 nmol/L) Sufficiency 30 - 100 ng/mL (75 - 250 nmol/L) Toxicity >100 ng/mL (>250 nmol/L); ADDENDA: normal and has apt next week 40-Qrx-025870:07 Free T3 Comments: [facility] [address] [place], [id number] FREE T3 2.4 pg/mL (Normal) Range: 2.18-3.98 46-Sfb-964138:07 T4 Free Direct Comments: [facility] [address] [place], [address] T4 FREE DIRECT 1.16 ng/dL (Normal) Range: 0.76-1.46 00-Guz-423003:07 Thyroid Stim Hormone (TSH) Comments: [facility] [address] [place], [address] TSH 0.16 {uIU/mL} (Abnormal) Range: 0.358-3.74 :20 Urine Drug Screen neg for everything (Office - Urine Drug (Normal) Screen 11 Panel) (88839) :13 CBC W/Diff, Automated Comments: LIPID IS FOR DR. Aparicio [facility] [address] [place], [place], [address] Absolute Lymph 1.31 {X10_3/ul} (Normal) Range: 0.83-4.51 [...] Metabolic Profil Comments: LIPID [facility] [address] [place], [place], [address] GAP 6 (Normal) Range: 5-15 CO2 29.0 [...] Lipid Profile Comments: LIPID IS FOR DR. Gutierrezian [facility] [address] [place], [address] VLDL 21 mg/dL (Normal) Range: 5-40 LDL [...] 200-240 mg/dL Borderline >240 mg/dL High Risk 51-Jjq-924994:59 TSH (67872) Comments: PATIENT NOT FASTINGPERFORMED BY: [facility] [id number] TSH 0.250 {uIU/mL} (Abnormal) Range: 0.450-4.500 :59 CALCIUM, IONIZED (18051) Comments: PATIENT NOT FASTINGPERFORMED BY: W-locate [facility] [id number] Calcium, Ionized, Serum 5.3 mg/dL (Normal) Range: 4.5-5.6 :59 PHOSPHORUS (93795) Comments: PATIENT NOT FASTINGPERFORMED BY: W-locate [facility] [id number] Phosphorus, Serum 4.1 mg/dL (Normal) Range: 2.5-4.5 :59 PARATHORMONE (38553) Comments: PATIENT NOT FASTINGPERFORMED BY: [place] [id number] PTH, Intact 29 pg/mL (Normal) Range: 15-65 :59 VITAMIN B-12 (CYANOCOBALAMIN) Comments: PATIENT NOT FASTINGPERFORMED BY: [facility] [facility] [id number] (37981) Vitamin B12 793 pg/mL (Normal) Range: 211-946 :59 Anti-TPO Antibody (05820) Comments: PATIENT NOT FASTINGPERFORMED BY: [facility] [id number] Thyroid Peroxidase (TPO) Ab 8 {IU/mL} (Normal) Range: 0-34 :59 T4, FREE (THYROXINE) Comments: PATIENT NOT FASTINGPERFORMED BY: [facility] [id number] Information: [id number] (83749) T4,Free(Direct) 1.44 ng/dL (Normal) Range: 0.82-1.77 :59 T3, FREE (TRIDOTHYRONINE) (67162) Comments: PATIENT NOT FASTINGPERFORMED BY: [facility] [id number] Triiodothyronine,Free,Serum 3.1 pg/mL (Normal) Range: 2.0-4.4 :13 CBC W/Diff, Automated Comments: CBCD IS FOR ian [facility] [address] [place], [place], [id number] ; ordered by maco Absolute Lymph 0.96 [...] 4.6-6.2 WBC 6.8 K/mm3 (Normal) Range: 4.4-11.0 93-Nqd-10037:13 Comprehensive Metabolic Profil Comments: LIPID,CMP,TSH ARE FOR AND CMP AND CBCD ARE FOR [facility] [address] [place], [address] GAP 4 (Abnormal) Range: 5-15 CO2 31.0 [...] FOR AND CMP AND CBCD ARE FOR [facility] [address] [place], [address] VLDL 19 mg/dL (Normal) Range: [...] FOR AND CMP AND CBCD ARE FOR [facility] [address] [place], [address] TSH 0.61 {uIU/mL} (Normal) Range: 0.358-3.74 31-Pka-510697:22 Rapid Flu (06606 x 2) Comments: neg Influenza A Ag negative (Normal) : Jacy Osei CMP14 SPRCS (Normal) Comments: PATIENT WAS FASTINGPERFORMED BY: [facility] [id number] Default Comments: A hand-written panel/profile was received from your office. Inaccordance with the [facility] Ambiguous Test Code Policy dated February2003, we have completed your order by using the closest currentlyor formerl y recognized AMA panel. We have assigned ComprehensiveMetabolic Panel (14), Test Code #605443 to this request. If thisis not the testing you wished to receive on this specimen, pleasecontact the [facility] Client Inquiry/Technical Services Departmentto clarify the test order. We appreciate your business. : Jacy Osei LP SPRCS (Normal) Comments: PATIENT WAS FASTINGPERFORMED BY: [facility] [id number] 17 Default Comments: A hand-written panel/profile was received from your office. Inaccordance with the [facility] Ambiguous Test Code Policy dated February2003, we have completed your order by using the closest currentlyor formerl y recognized AMA panel. We have assigned Lipid Panel,Test Code #834619 to this request. If this is not the testing youwished to receive on this specimen, please contact the [facility]Ohio[facility] Hospitalient Inquiry/Techni burak Services Department to clarify the testorder. We appreciate your business. :17 Comp. Metabolic Panel (14) Comments: PATIENT WAS FASTINGPERFORMED BY: [facility] [facility] [id number] ALT (SGPT) 21 [iU]/L (Normal) Range: 0-44 [...] Lipid Panel Comments: PATIENT WAS FASTINGPERFORMED BY: [facility] [id number]; non-emergent till apt LDL Cholesterol Calc 95 mg/dL (Normal) Range: 0-99 VLDL Cholesterol Burak 21 mg/dL (Normal) Range: 5-40 HDL Cholesterol 33 mg/dL (Abnormal) Comments: According to ATP-III Guidelines, HDL-C >59 mg/dL is considered anegative risk factor for CHD. Triglycerides 107 mg/dL (Normal) Range: 0-149 Cholesterol, Total 149 mg/dL (Normal) Range: 100-199 :17 Prostate-Specific Ag, Serum Comments: PATIENT WAS FASTINGPERFORMED BY: [facility] [id number] Prostate Specific Ag, 1.0 ng/mL (Normal) Range: 0.0-4.0 Serum Comments: Zachary ECLIA methodology. .According to the [place] [employer], Serum PSA shoulddecrease and remain [...] :57 CBC W/Diff, Automated Comments: Test performed at:[facility] [address] [place], [place] [address] Absolute Lymph 1.54 {X10_3/ul} (Normal) Range: 0.83-4.51 [...] :57 Comprehensive Metabolic Profil Comments: Test performed at:[facility] [address] [facility]. [place], [place] [address] GAP 7 (Normal) Range: 5-15 CO2 29.0 [...] 7-18 GLU 81 mg/dL (Normal) Range: 70-110 05-Jkv-503463:58 CBC W/Diff, Automated Comments: Test performed at:[facility] [address] [facility] [place] [address] Absolute Lymph 1.35 {X10_3/ul} (Normal) [...] 4.6-6.2 WBC 6.9 K/mm3 (Normal) Range: 4.4-11.0 00-Pkd-068497:58 Comprehensive Metabolic Profil Comments: Test performed at:[facility] [address] [place] [address] GAP 7 (Normal) Range: 5-15 CO2 29.0 [...] 7-18 GLU 82 mg/dL (Normal) Range: 70-110 25-Lrf-69216:27 CBC W/Diff, Automated Comments: Test performed at:[facility] [address] [place], [place] [address] Absolute Lymph 1.27 {X10_3/ul} (Normal) Range: 0.83-4.51 [...] DR VALLE ORDERED CMP ABD CBCTest performed at:[facility] [address] [facility] [place] [address] GAP 5 (Normal) Range: 5-15 [...] DR VALLE ORDERED CMP ABD CBCTest performed at:[facility] S[address]bl[address] [facility] DavonShahla [place], [place] [address] VLDL 17 mg/dL (Normal) Range: 5-40 LDL [...] 200-240 mg/dL Borderline >240 mg/dL High Risk 30-Lgt-194904:25 Crystals, Body Fluid Comments: Comments: ArthrocentesisComments: ArthrocentesisTest performed at:[facility] [address] [place] [address] PATH REV May foll (Normal) SOURCE/BF SYNOVIAL (Normal) CRYSTALS/BF Absent (Normal) 12-Mgj-026546:25 Glucose, Body Fluid Comments: Comments: ArthrocentesisTest performed at:[facility] [address] [place], [place] [address] GLU,BF 10 mg/dL (Normal) 15-Ugw-168812:25 Protein, Body Fluid Comments: Comments: ArthrocentesisTest performed at:[facility] [address] [place] [address] PROTEIN,BF 4.0 g/dL (Normal) 27-Xau-83642:29 CMP GAP 5 (Normal) Range: 5-15 CO2 [...] CHOL 117 mg/dL (Normal) Comments: <200 mg/dL Rigubmqlj303-813 mg/dL Borderline>240 mg/dL High Risk :20 PSA 1.02 ng/mL (Normal) Range: 0.00-4.00 Comments: This test was performed using the TPSA assay method for [employer] chemistry system. Values obtained with differentassay methods cannot be used interchangably.When changing PSA assays in the course of monitoring apatient, additional sequential testing should be carriedout to confirm baseline values. 27-Sxu-007335:02 CBCD ALC 1.41 {X10_3/ul} (Normal) Range: 0.83-4.51 [...] 4.6-6.2 WBC 5.7 K/mm3 (Normal) Range: 4.4-11.0 56-Gkb-487994:02 CMP GAP 4 (Abnormal) Range: 5-15 CO2 [...] 7-18 GLU 93 mg/dL (Normal) Range: 70-110 61-Iik-774918:08 CBCD ALC 0.86 {X10_3/ul} (Normal) Range: 0.83-4.51 [...] 4.6-6.2 WBC 5.2 K/mm3 (Normal) Range: 4.4-11.0 64-Loz-138804:08 CMP GAP 4 (Abnormal) Range: 5-15 CO2 [...] CHOL 109 mg/dL (Normal) Comments: <200 mg/dL Mhnbemlqx255-355 mg/dL Borderline>240 mg/dL High Risk 17-Jul-20139:13 DANIELLE CULTURE-OTHER (98760) Comments: PATIENT NOT FASTINGPERFORMED BY: DERIK [facility] [address] [place] [id number] Information: SRC:THRT [id number] Result 1 RRF (Normal) Comments: Routine respiratory kaden Upper Respiratory Culture Final report (Normal) 3-Ceh-816454:27 Rapid Strep Test, Office (74262) Rapid Strep Test, Office Negative (Normal) :12 [...] CHOL 149 mg/dL (Normal) Comments: <200 mg/dL Kdnqhqsht584-408 mg/dL Borderline>240 mg/dL High Risk :29 CBCD [...] CHOL 143 mg/dL (Normal) Comments: <200 mg/dL Owtgzqcpg268-357 mg/dL Borderline>240 mg/dL High Risk TRIG 66 mg/dL (Normal) Comments: Serum Triglycerides Reference IntervalNormal <150 mg/dLBorderline high 150 - 199 mg/dLHigh 200 - 499 mg/ dLVery High > or = 500 mg/dL :58 CA 8.7 mg/dL (Normal) Range: 8.5-10.1 :58 PHOS 2.8 mg/dL (Normal) Range: 2.5-4.9 :58 PTHIN 43 pg/mL (Normal) Range: 14-72 44-Orr-553867:58 TSH 0.49 {uIU/mL} (Normal) Range: 0.358-3.74 59-Ylo-933531:58 VITD 33.8 ng/mL (Normal) Range: 30.0-100.0 Comments: Vitamin D deficiency has been defined by the [place] of[facility] Centerc[facility] and an Endocrine Society practice guideline as alevel of serum 25-OH vitamin D less than 20 ng/mL (1,2).The Endocrine Society went on to further define vitamin Dinsufficiency as a level between 21 and 29 ng/mL (2).1. IOM ([place] of Medicine). 2010. Dietary reference intakes for calcium and D. [place]: The National Academies Press.2. Melanie MF, Evans [place], Lora CRONIN, et al. Evaluation, treatment, and prevention of vitamin D deficiency: an Endocrine Society clinical practice guideline. JCEM. 2010; 96(7): 1911-30.Performed at: [address] [id number] Director: Abdi Navarrete PhD, Phone: [phone] 40-Yfo-36679:25 CBCD Comments: DR CAI ORDERED CMP LIPIDDR VALLE ORDERED CMP CBCD ANC 3.0 3/uL (Normal) [...] LIPID Comments: DR CAI ORDERED CMP LIPIDDR VALLE ORDERED CMP CBCD LDL 100 mg/dL (Normal) [...] Very High > or = 500 mg/dL 8-Ybh-184087:36 CBCMD Comments: DR VALLE ORDERED CMP CBCDDR [...] Please note: Revised HEMOGLOBIN REFERENCE RANGES Reference Evestra effective 03/13/12.Please note: Revised HEMOGLOBIN REFERENCE RANGES Reference Evestra effective 03/13/12. RBC 4.86 {M/mm3} (Normal) Range: [...] LIPID Comments: DR VALLE ORDERED CMP CBCDDR AYALA ORDERED CMP PSA CBCMD LIPID LDL 99 [...] performed using the TPSA assay method for the[employer] chemistry system. Values obtained with differentassay methods cannot be used interchangably.When ch anging PSA assays in the course of monitoring apatient, additional sequential testing should be carriedout to confirm baseline values. :09 CBCD Comments: ORDERED LIPID CMPDR. LEONARD ORDERED [...] 4.6-6.2 WBC 5.9 K/mm3 (Normal) Range: 4.4-11.0 48-Yvv-815600:09 CMP Comments: ORDERED LIPID CMPDRShahla VALLE ORDERED [...] 0.8-1.3 GLU 89 mg/dL (Normal) Range: 70-110 12-Oek-195385:09 LIPID Comments: ORDERED LIPID CMPDR. LEONARD ORDERED [...] mg/dL Borderline >240 mg/dL High Risk :09 VITD 40.4 ng/mL (Normal) Comments: ORDERED LIPID CMPDR. LEONARD ORDERED CMP CBCD VITD Range: 30.0-100.0 Comments: Vitamin D deficiency has been defined by the [place] of[place]icine and an Endocrine Society practice guideline as alevel of serum 25-OH vitamin D less than 20 ng/mL (1,2).The Endocrine Society went on to further define vitamin Dinsufficiency as a level between 21 and 29 ng/mL (2).1. IOM ([place] of Medicine). 2010. Dietary reference intakes for calcium and D. [place]: The National Academies Press.2. Melanie MF, [place], Lora CRONIN, et al. Evaluation, treatment, and prevention of vitamin D deficiency: an Endocrine Society clinical practice guideline. JCEM. 2010; 96(7): 1911-30. .Effective October 16, 2011, Vitamin D, 25 Hydroxy specimen requirements will change to serum only.Performed at: [facility] [id number] Director: Mirna Gan MD, Phone: [phone] 54-Qei-72946:26 CBCD Comments: DR CAI ORDERED LIPID,LIVERDR LEONARD [...] 4.6-6.2 WBC 6.7 K/mm3 (Normal) Range: 4.4-11.0 03-Vks-82211:26 COMP METABOLIC Comments: DR CAI ORDERED LIPID,LIVERDR [...] PERFORMED FROM THISSPECIMEN. PHYSICIAN ORDER REQUIRED. CALL [facility] FORTHIS REFLEX TESTING. [phone] :[phone] ANEX PANEL SHORT GOODS DRIER AB 47 AU/mL (Normal) ANTI-COOK AB 12 AU/mL (Normal) :15 ANTI JO1 ANTI KATERIN 21 AU/mL (Normal) :15 ANTI SCL 70 ANTI-SCL 70 15 AU/mL (Normal) :15 ANTI-CCP 073150 3 {units} (Normal) Range: 0-19 Comments: Negative [...] 1.002-1.030 COLOR YELLOW (Normal) :15 HB CORE [id number] SeeNote (Normal) Comments: Result: Negative Performed at: [facility] [address] [id number] Director: Mirna Gan MD, Phone: [phone] at: [facility] LabCo[place] [id number] Director: Terrence Moreno MD, Phone: [phone] at: 2Q - LabKyr[facility] [address] [place], [place] [id number] Director: Viral Maya PhD, Phone: [phone] : HBsAg 6510 HB SURF AG 6510 [...] amount of antibody present. HEP C AB 003997 <0.1 (Normal) Range: 0.0-0.9 Comments: Negative: < 0.8 Indeterminate 0.8 - 0.9 Positive: > 0.9 . In order to reduce the incidence of a false positive result, the CDC recommends that all s/co ratios between 1.0 and 10.9 be confirmed with additional RIBA or PCR testing. HLA B27 6924 HLA B27 SeeNote (Normal) [...] mg/dL (Normal) SJOGREN'S SSA 229 AU/mL (Abnormal) 5-Oct-14160:15 SJOGRENS SSB SJOGREN'S SSB 18 AU/mL (Normal) :15 VIT D,25 14478 46.3 ng/mL (Normal) Range: 32.0-100.0 Comments: Recent studies consider the lower limit of 32.0 ng/mL to nicanor threshold for optimal health.Aleks LOUIS. J Nutr. 2004;135(2):317-22. :17 AMANDEEP DIR SEMI-QL AMANDEEP DIRECT 261 AU/mL (Abnormal) Comments: REFLEX AMANDEEP PANEL TESTING CAN BE PERFORMED FROM THISSPECIMEN. PHYSICIAN ORDER REQUIRED. CALL [facility] FORTHIS REFLEX TESTING. [phone] 44-Uou-876979:17 ANTI-dsDNA AB 9 {IU/mL} (Normal) :17 C-REACTIVE [...] 11.6-14.6 WBC 6.0 K/mm3 (Normal) Range: 4.4-11.0 26-Gyk-528647:17 COMP METABOLIC GAP 4 (Abnormal) Range: 5-15 [...] T PROT 6.6 g/dL (Normal) Range: 6.4-8.2 61-Tqk-896298:17 COMPLETE UA BACTERIA 0 SEEN {/hpf} (Normal) [...] 1.0 CLARITY CLEAR (Normal) COLOR YELLOW (Normal) 72-Sko-621040:17 ESR SED RATE 1 mm/h (Normal) Range: 0-20 33-Wwq-794433:17 LIPID HDL 28 mg/dL (Abnormal) Comments: Reference [...] CHOL 191 mg/dL (Normal) Comments: <200 mg/dL Ndybrvsfa404-980 mg/dL Borderline>240 mg/dL High Risk 14-Amz-720473:17 PSA, SCREEN 0.6 ng/mL (Normal) Range: 0.0-4.0 61-Vxl-286930:17 RHEUMATOID FAC < 10.0 {IU/mL} (Normal) Plan [...] hyperlipidemia Planned Observations TSH (THYROID STIMULATING HORMONE) (16864)Indication: Thyromegaly On: 30-Tcz-748773:26 Request THYROXINE FREE (23197)Indication: Thyromegaly On: 76-Kuy-215010:26 Request FREE TRIDOTHYRONINE (T3) (39087)Indication: Thyromegaly On: :26 Request CBC W/AUTO DIFF WBC (13168)Indication: Other hyperlipidemia On: :26 Request METABOLIC PANEL, COMPREHENSIVE (39263)Indication: Other hyperlipidemia On: :26 Request LIPID PANEL (17617)Indication: Other hyperlipidemia On: : Request Drug Screen (7drug + Alcohol) (65500)Indication: Attention deficit disorder of adult On: :04 Request TSH (34584)Indication: Hyperthyroidism On: 96-Nnr-448936:04 Request METABOLIC PANEL, COMPREHENSIVE (03640)Indication: Other hyperlipidemia On: : Request LIPID PANEL (20955)Indication: Other hyperlipidemia On: : Request Urine Drug Screen -Medicare (Office - Urine Drug Screen 9 Panel) (61308)Indication: Attention deficit disorder of adult On: 54-Vmx-338025:46 Request Comments: appropriate results positive for amphetamine CBC W/AUTO DIFF WBC (21227)Indication: Memory loss On: 60-Yzj-094054:08 Request METABOLIC PANEL, COMPREHENSIVE (28714)Indication: Memory loss On: 39-Htx-617757:08 Request LIPID PANEL (88614)Indication: Other hyperlipidemia On: 56-Axk-443744:08 Request TSH (80828)Indication: Hyperthyroidism On: 02-Rxy-109038:07 Request PSA (PROSTATE SPECIFIC ANTIGEN) (V76.44)Indication: Encounter for screening for malignant neoplasm of prostate (Renamed from Screening for prostate cancer) On: 59-Gbo-738183:01 Request HEPATITIS C ANTIBODY (87862)Indication: Liver function abnormality On: 8-Tig-734985:18 Request CBC W/AUTO DIFF WBC (44392)Indication: Liver function abnormality On: 58-Mwd-522905:00 Request TSH (19973)Indication: Hyperthyroidism On: 43-Vln-015412:59 Request METABOLIC PANEL, COMPREHENSIVE (78590)Indication: Liver function abnormality On: 30-Zdl-792198:58 Request LIPID PANEL (09261)Indication: Other hyperlipidemia On: 40-Gme-541791:58 Request METABOLIC PANEL, COMPREHENSIVE (92058)Indication: Liver function abnormality On: 48-Jbv-178033:09 Request CBC W/AUTO DIFF WBC (90627)Indication: Anxiety On: :41 Request LIPID PANEL (87241)Indication: Other hyperlipidemia On: :30 Request TSH (86560)Indication: Hyperthyroidism On: :29 Request HEPATITIS C ANTIBODY (47509)Indication: Encounter for hepatitis C virus screening test for high risk patient On: 61-Kch-13344:44 Request CBC W/AUTO DIFF WBC (32150)Indication: Abnormal C-reactive protein On: :16 Request METABOLIC PANEL, COMPREHENSIVE (70014)Indication: Other hyperlipidemia On: 7-Ncp-517898:15 Request LIPID PANEL (28554)Indication: Other hyperlipidemia On: 2-Wnl-971311:15 Request C-REACT PROT HIGH SENS(hsCRP) (28632)Indication: Abnormal C-reactive protein On: :15 Request PSA (PROSTATE SPECIFIC ANTIGEN) (V76.44)Indication: Encounter for screening for malignant neoplasm of prostate (Renamed from Screening for prostate cancer) On: :16 Request CBC with auto diff (45796)Indication: Memory loss On: 94-Rjz-278946:14 Request METABOLIC PANEL, COMPREHENSIVE (45467)Indication: Memory loss On: 74-Tli-962713:14 Request T4, FREE (THYROXINE) (93375)Indication: Hyperthyroidism On: 84-Qvz-901527:14 Request T3, FREE (TRIDOTHYRONINE) (36308)Indication: Hyperthyroidism On: 00-Fwm-073327:14 Request C-REACT PROT HIGH SENS(hsCRP) (81756)Indication: Abnormal C-reactive protein On: 68-Qtz-493978:14 Request LIPID PANEL (09340)Indication: Other hyperlipidemia On: 94-Wss-741766:11 Request TSH (13190)Indication: Hyperthyroidism On: 87-Uqs-620805:11 Request T4, FREE (THYROXINE) (83307)Indication: Hyperthyroidism On: :21 Request T3, FREE (TRIDOTHYRONINE) (96206)Indication: Hyperthyroidism On: 65-Psi-114653:21 Request TSH (55368)Indication: Hyperthyroidism On: 53-Fcd-960997:13 Request Vitamin D Hydroxy (79210)Indication: Memory loss On: :22 Request CBC W/AUTO DIFF WBC (77040)Indication: Other hyperlipidemia On: :22 Request LIPID PANEL (57239)Indication: Other hyperlipidemia On: : Request METABOLIC PANEL, COMPREHENSIVE (26026)Indication: Other hyperlipidemia On: :22 Request C-REACT PROT HIGH SENS(hsCRP) (63128)Indication: Abnormal C-reactive protein On: :21 Request T4, FREE (THYROXINE) (82406)Indication: Abnormal TSH On: :16 Request T3, FREE (TRIDOTHYRONINE) (43180)Indication: Abnormal TSH On: :16 Request TSH (38749)Indication: Abnormal TSH On: :16 Request CBC W/AUTO DIFF WBC (82590)Indication: Gastroesophageal reflux disease without esophagitis On: :45 Request METABOLIC PANEL, COMPREHENSIVE (73971)Indication: Other hyperlipidemia On: :45 Request LIPID PANEL (05910)Indication: Other hyperlipidemia On: :44 Request CALCIUM SERUM (61622)Indication: Hypocalcemia On: 37-Ewk-65994:00 Request PHOSPHORUS (09592)Indication: Hypocalcemia On: :59 Request PARATHORMONE (05301)Indication: Hypocalcemia On: :59 Request Vitamin D Hydroxy (09077)Indication: Hypocalcemia On: :59 Request TSH (01400)Indication: Anxiety On: :38 Request METABOLIC PANEL, COMPREHENSIVE (04220)Indication: Other hyperlipidemia On: 08-Elt-828988:38 Request LIPID PANEL (08880)Indication: Other hyperlipidemia On: 88-Prt-210016:33 Request BACT CULTURE ANY-ANAEROBIC (68950)Indication: Sore throat and laryngitis On: :49 Request Rapid Strep Test, Office (51719)Indication: Sore throat and laryngitis On: :48 Request Rapid Flu (39097 x 2)Indication: Fever and chills On: :48 Request PSA (PROSTATE SPECIFIC ANTIGEN) (V76.44)Indication: Screening for prostate cancer On: 3-Uob-485429:03 Request METABOLIC PANEL, COMPREHENSIVE (05117)Indication: Other hyperlipidemia On: 8-Hjy-435962: Request LIPID PANEL (25389)Indication: Other hyperlipidemia On: : Request CBC W/AUTO DIFF WBC (35863)Indication: Elevated blood-pressure reading without diagnosis of hypertension On: :40 Request METABOLIC PANEL, COMPREHENSIVE (31130)Indication: Elevated blood-pressure reading without diagnosis of hypertension On: :40 Request LIPID PANEL (11754)Indication: Other hyperlipidemia On: :40 Request PSA (PROSTATE SPECIFIC ANTIGEN) (V76.44)Indication: screening On: :31 Request METABOLIC PANEL, COMPREHENSIVE (52741)Indication: Other hyperlipidemia On: :30 Request LIPID PANEL (52572)Indication: Other hyperlipidemia On: :29 Request METABOLIC PANEL, COMPREHENSIVE (84402)Indication: Other hyperlipidemia On: 9-Ljb-366884:56 Request PSA (PROSTATE SPECIFIC ANTIGEN) (71188)Indication: Screening for prostate cancer On: 4-Flv-286669:28 Request PSA (PROSTATE SPECIFIC ANTIGEN) (V76.44)Indication: Screening for prostate cancer On: 12-Nzz-230116:25 Request METABOLIC PANEL, COMPREHENSIVE (03634)Indication: Anxiety On: 72-Aqw-651191:25 Request LIPID PANEL (52952)Indication: Other hyperlipidemia On: 61-Cle-961276:00 Request HEPATIC FUNCTION PANEL (13324)Indication: Other hyperlipidemia On: 78-Ayi-303262:00 Request METABOLIC PANEL, COMPREHENSIVE (17313)Indication: Other hyperlipidemia On: 19-Qhf-464034:32 Request LIPID PANEL (60673)Indication: Other hyperlipidemia On: 23-Vks-716477:31 Request METABOLIC PANEL, COMPREHENSIVE (13756)Indication: Elevated blood-pressure reading without diagnosis of hypertension On: :23 Request LIPID PANEL (76403)Indication: Other hyperlipidemia On: 57-Rdp-514506:23 Request CALCIUM SERUM (91551)Indication: Hypocalcemia On: :30 Request PARATHORMONE (17698)Indication: Hypocalcemia On: :30 Request PHOSPHORUS (29066)Indication: Hypocalcemia On: :29 Request TSH (83900)Indication: Hypocalcemia On: :29 Request Vitamin D Hydroxy (90250)Indication: Hypocalcemia On: :29 Request LIPID PANEL (63938)Indication: Other hyperlipidemia On: :44 Request METABOLIC PANEL, COMPREHENSIVE ([id number])Indication: Other hyperlipidemia On: :44 Request PSA (PROSTATE SPECIFIC ANTIGEN) (V76.44)Indication: Screening for prostate cancer On: :09 Request LIPID PANEL ([id number])Indication: Other hyperlipidemia On: :08 Request CBC WITH MANUAL DIFF ([id number])Indication: Elevated blood-pressure reading without diagnosis of hypertension On: :08 Request METABOLIC PANEL, COMPREHENSIVE ([id number])Indication: Elevated blood-pressure reading without diagnosis of hypertension On: :08 Request METABOLIC PANEL, COMPREHENSIVE ([id number])Indication: Anxiety On: 81-Kso-224097:46 Request LIPID PANEL ([id number])Indication: Other hyperlipidemia On: 66-Jlx-712877:46 Request PSA (PROSTATE SPECIFIC ANTIGEN) (V76.44)Indication: Screening for prostate cancer On: 39-Yvp-706780:09 Request HEPATIC FUNCTION PANEL ([id number])Indication: Other hyperlipidemia On: 35-Tdn-403206: Request LIPID PANEL ([id number])Indication: Other hyperlipidemia On: 07-Aht-929048:09 Request PSA (PROSTATE SPECIFIC ANTIGEN) (V76.44)Indication: Screening for prostate cancer On: 3-Wdz-881068:11 Request HEPATIC FUNCTION PANEL ([id number])Indication: Other hyperlipidemia On: 7-Cch-310598:10 Request LIPID PANEL ([id number])Indication: Other hyperlipidemia On: 8-Abo-723981:10 Request HEPATIC FUNCTION PANEL ([id number])Indication: Other hyperlipidemia On: 21-Tys-461299:04 Request LIPID PANEL ([id number])Indication: Other hyperlipidemia On: 34-Kps-163733:04 Request PSA (PROSTATE SPECIFIC ANTIGEN) (V76.44)Indication: Screening for prostate cancer On: 4-Xqq-911801:55 Request URINALYSIS, W/ MICRO ([id number])Indication: Osteoarthritis, unspecified osteoarthritis type, unspecified site On: :55 Request METABOLIC PANEL, COMPREHENSIVE ([id number])Indication: Osteoarthritis, unspecified osteoarthritis type, unspecified site On: :54 Request CBC WITH MANUAL DIFF ([id number])Indication: Osteoarthritis, unspecified osteoarthritis type, unspecified site On: :54 Request LIPID PANEL ([id number])Indication: Other hyperlipidemia On: :54 Request AMANDEEP (ANTINUCLEAR ANTIBODY) ([id number])Indication: Osteoarthritis, unspecified osteoarthritis type, unspecified site On: :53 Request RHEUMATOID FACTOR-QUANT ([id number])Indication: Osteoarthritis, unspecified osteoarthritis type, unspecified site On: :53 Request C-REACTIVE PROTEIN ([id number])Indication: Osteoarthritis, unspecified osteoarthritis type, unspecified site On: :53 Request SED RATE ERYTHROCYTE ([id number])Indication: Osteoarthritis, unspecified osteoarthritis type, unspecified site On: :53 Request Planned Encounters Medical; ADD EST VISIT [...] A ELECTROCARDIOGRAM, COMPLETE (ECG) On: 22-Jul-2018 Intent ([id number])By: Fast DO, Ana A Fast Comments: ekg showed normal sinus rhythym, normal axis, no acute st/t wave changes DO, Ana A Flu Vaccine (Quadrivalent) [id number]: On: 30-Apr-2018 Intent Fast DO, Ana A Fast DO, Ana A Comments: Lot #[id number]-L dltd, IMDose prefilled syringegiven by: HERNANDO Velez reviewed and ABN signed Flu Vaccine (Quadrivalent) [id number]: On: 05-Jun-2017 Intent Fast DO, Ana A Fast DO, Ana A Comments: lot: [id number]: 01/28/18ite/route: L jefe, IMamt: 0.5mlVIS and ABN signed when applicableChelsea, [facility] PNEUM VAC ADLT/IMUMNOSPR, SBC/INTRM On: 09-Apr-2017 Intent ([id number])By: Fast DO, Ana A Ayala Comments: lot: [id number]: 09/20/18site/route: L del/IMamt: 0.5mLVIS signed when applicableChelsea, [facility] DO, Ana A ELECTROCARDIOGRAM, COMPLETE (ECG) On: 09-Apr-2017 Intent ([id number])By: Ayala DO, Ana A Ayala Comments: ekg showed normal sinus rhythym, normal axis, no acute st/t wave changes DO, Ana A THYROID SCAN UPTAKE ([id number])By: Ayala On: 25-Aug-2016 Intent DO, Ana A Fast DO, Ana A Flu Vaccine (Quadrivalent) [id number]: On: 15-May-2016 Intent Fast DO, Ana A Fast DO, Ana A Comments: Lot #:[id number] date:02/09/17mount given:0.5mlRoute: IMSite given: left dewltoidGiven by: LEANDRO Perez [facility]RATION OF INFLUENZA VIRUS On: 15-May-2016 Intent VACCINE ([id number])By: Fast DO, Ana A Fast DO, Ana A CT - Brain/Head (IV Contrast On: 03-Apr-2016 Intent Needed)By: Fast DO, Ana A Fast DO, Ana A ELECTROCARDIOGRAM, COMPLETE (ECG) On: 03-Apr-2016 Intent ([id number])By: Fast DO, Ana A Fast Comments: ekg showed normal sinus rhythym, normal axis, no acute st/t wave changes sinus surjit DO, Ana A Cartoid DopplerBy: Fast DO, Ana A On: 19-Jul-2015 Intent Fast DO, Ana A Flu Vaccine (Quadrivalent) [id number]: On: 19-Jul-2015 Intent Fast DO, Ana A Fast DO, Ana A Comments: lot [id number]: 02/10/2016site/route L jefe, IMamt 0.5mlVIS and ABN signed when applicableChels, [facility] ADMINISTRATION OF INFLUENZA VIRUS On: 19-Jul-2015 Intent VACCINE ([id number])By: Jung Cai DOa A Ayala DO, Ana A Aerosol Treatment ([id number])By: Ruchi On: 30-Jun-2015 Intent Janice ZAMAN Comments: more a.e no wheeze -- really better Radiology - Chest- PA and LatBy: On: 30-Jun-2015 Intent Janice Hopper DO Cartoid DopplerBy: Ana Cia DO A On: 18-May-2014 Intent Ayala ZAMAN, Ana A FLU VAC, SPLIT, >3 YEARS, INTRAMUSC On: 18-May-2014 Intent ([id number])By: Ana Cai DO Comments: Lot #:[id number] date:04/2016Amount given:0.5mlRoute: IMSite given: left deltoidGiven by: LEANDRO Perez DO, Debra A IMMUNIZ ADMNIN, 1 VAC, SNGL/COMBO On: 18-May-2014 Intent ([id number])By: Ana Cai DO A Ayala DO, Ana A Eprescribed prescriptions On: 17-Nov-2013 Intent ([id number])By: Ana Cai DO DO, Ana A Solu- Medrol Injection, 125mg On: 05-Aug-2013 Intent ([id number])By: Ana Cai DO Comments: Lot #[id number]-Febh-asttfbtaj syringegiven by:HERNANDO Dixon signed DO, Ana A Aerosol Treatment ([id number])By: Ayala On: 05-Aug-2013 Intent Ana ZAMAN A Ayala DO, Ana A Spirometry ([id number])By: Ayala ZAMAN, On: 05-Aug-2013 Intent Ana Warren Fast DO, Ana A Comments: good effort and curve mod obst Pulse Oximetry ([id number])By: Ayala ZAMAN, On: 05-Aug-2013 Intent Ana Cai DO, Ana A Comments: 98 Radiology - Chest- PA and LatBy: On: 05-Aug-2013 Intent Ayala ZAMAN, Ana A Fast DO, Ana A Eprescribed prescriptions On: 05-Aug-2013 Intent ([id number])By: Millie Christine FLU VAC, SPLIT, >3 YEARS, INTRAMUSC On: 16-Jul-2013 Intent ([id number])By: Amaris Becerra Comments: Lot #:[id number] date:mount given:0.5mlRoute: IMSite given: L dltdVIS and ABN signedGiven by: LEANDRO Perez IMMUNIZ ADMNIN, 1 VAC, SNGL/COMBO On: 16-Jul-2013 Intent ([id number])By: Amaris Becerra Eprescribed prescriptions On: 16-Jul-2013 Intent ([id number])By: Amaris Becerra EKG ([id number])By: Amaris Becerra On: 24-Feb-2013 Intent Comments: ekg [...] SPLIT, >3 YEARS, INTRAMUSC On: 24-May-2012 Intent ([id number])By: Julissa Salomon LPN Comments: Lot #[id number]/30/13Site-left deltoidgiven by: Carlos Salomon LPN IMMUNIZ ADMNIN, 1 VAC, SNGL/COMBO On: 24-May-2012 Intent ([id number])By: Julissa Salomon LPN Cartoid DopplerBy: Fast DO, Ana A On: 25-Mar-2012 Intent Fast DO, Ana A Comments: may EKG ([id number])By: Amaris Becerra On: 30-Oct-2011 Intent Comments: ekg showed normal sinus rhythym, normal axis, no acute st/t wave changes TD Injection , IM ([id number])By: On: 06-Jun-2011 Intent Amaris Becerra Comments: [facility] at [facility] FLU VAC, SPLIT, >3 YEARS, INTRAMUSC On: 06-Jun-2011 Intent ([id number])By: Amaris Becerra Comments: Lot #:[id number] date:mount given:0.5mlRoute: IMSite given:left deltGiven by: LEANDRO Perez IMMUNIZ ADMNIN, 1 VAC, SNGL/COMBO On: 06-Jun-2011 Intent ([id number])By: Amaris Becerra Cartoid DopplerBy: Fast DO, Ana A On: 25-Apr-2011 Intent Fast DO, Ana A EKG ([id number])By: Fast DO, Ana A On: 16-Feb-2010 Intent [...] How to access health information online Indication: [facility] : How to access health information online - Detail Indication: [facility] : [facility] Difficulty sleeping : How to [...] libido is normal. Note for Physical exam: [facility] Wellness Exam- weight down 5 pounds and [...] - Date: (02/02/16). Encounter Diagnosis: Abnormal TSH, [facility], Memory loss, Primary dysthymia, [...] for Tdap vaccination (Renamed from Need for qfscpbxyno-pdslkcm-vrwtclmej (Tdap) vaccine, adult/adolescent), Gastroesophageal reflux disease without [...] him tired sx 3 weeks with colored Panda Diagnosis: Upper Respiratory Infection (465.9) [facility] [...] on augmentin f or ear issues from [facility] x1 week- sunday throat sore all the [...] (780.50) [facility]OR[facility]; a guarantor
--- OUTSIDE RECORDS SUMMARY | 2018-10-30 18:41 | XMS RPT_ITS | Continuity of Care Document ---
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 Status: Active Unspecified Diagnosis Status: Active Wheezing [...] days Quantity: 90 {Tablet} Refills: 3 Ordered:29-Jun-2017 Aan Cai DO, DO, Ana A Start : [...] (E83.51, 275.41) Status: Resolved as of 21-Oct-2012 [facility] Status: Resolved as of 16-Jul-2017 [facility] Status: Inactive as of [...] for Tdap vaccination (Renamed from Need for mfojytpgwx-nfbnmkp-sjgsqkine (Tdap) vaccine, adult/adolescent) (Z23, V06.1) Status: Inactive [...] Procedure Dates Details TDAP VACCINE >7 IM (77792) Date: 08-Nov-2015 Completed 08-Nov-2015 nasal septal deviation urgery Completed Tonsillectomy Completed uvuloplasty/palate surgery Completed Date Value Details 23-Oct-2016 Sleep Study Report Result: Comments: See Note; NOTES: [facility] [address] [place] [address] Polysomnography with NCPAP MR#: [id number] Acct: [id number] Name: ORACIO ELIZALDE ep #: [id number] : 1960 56 From: Terrence Turner MD [...] version). Please note that a reference to [facility] AHI in this report is consistent with the current Hypopnea definition according to Medicare Criteria and an AASM AHI reference is consistent with the current Hypopnea definition according to the AASM criteria and is recognized by [facility] as the RDI. PROCEDURE: The study was attended continuously by a glass technician/installer. Monitored parameters included left and right EOG, [...] calculated body mass index of 28, an Houston Sleepiness Scale score of 11/24. The patient [...] MMarine. Terrence Turner MD T: NTS JOB: [id number] CC: Terrence Turner MD 42 4210/23/16 1130 <Electronically signed by Terrence Turner MD&#62 ; Date Terrence Turner MD Co-signature (if applicable) Date Signed -Sep-2016 Thyroid Uptake Single or Mult Result: Comments: See Note; NOTES: [facility] Imaging Services [address] [place] [address] Verdana 4d Thyroid Uptake Single or Mult MR#: [id number] Acct: [id number] Name: Javon ELIZALDE Rep #: [id number] : 1960 M 56 From: Sin Brantley DO PCP: Ana Cai DO Status: REG CLI Study: Thyroid Uptake Single or Mult Date of Exam: 09/25/16 Exam# [id number] Ordering Dr: Pearce DO CLINICAL: 56-year-old male [...] at 23:21 EST Tel , Service support [phone], CC: Ana Cai DO Candlemaker: Signed 04-Apr-2016 Brain/Head W/WO Contrast Result: Comments: See Note; NOTES: [facility] Imaging Services [address] [place] [address] Verdana 4d Brain/Head W/WO Contrast MR#: [id number] Acct: [id number] Name: BECKIE ELIZALDE Rep #: [id number] : 1960 M 56 From: Cuauhtemoc Vo MD PCP: Ana Cai DO Status: REG CLI Study: Brain/Head W/WO Contrast Date of Exam: 04/04/16 Exam# [id number] Ordering Dr: Ana Cai DO STUDY: CT [...] Cuauhtemoc Vo MD at 8:08 EDT Tel [phone], Service support [phone], CC: Ana Cai DO Candlemaker: Signed 16-Aug-2014 Emergency Department Summary Result: Comments: See Note; NOTES: [facility] Medical Records Department [address] [place] [address] Emergency Department Summary MR#: [id number] Acct: [id number] Name: ORACIO LOPEZ Rep #: [id number] : 1960 54 From: Donn Jacobo MD [...] given a prescription for na proxen and Claflin. He will be discharged to follow up with Dr. Pierce. DISPOSITION: Discharge. DIAGNOSES: 1. Right knee effusion: 2. Inflammatory process of right knee. Donn Jacobo MD T: NTS JOB: [id number] 08/16/14 0852 <Electronically signed by Donn Jacobo MD> Date Donn Jacobo MD CC: Ana Cai DO Date Dictated: 2208 Date Transcribed: 08/07/142208 Candlemaker: Signed 07-Aug-2014 Discharge Instruction Result: Comments: See Note; NOTES: [facility] Medical Records Department [address] [place] [address] Discharge Instruction 08/07/142205 MR#: [id number] Acct: [id number] Name: ORACIO ELIZALDE Rep #: [id number] : 1960 54 From: Donn Jacobo MD PCP: Ana Cai DO Status: REG ER ED Disposition - Plan for ED Patient: Disposition: Home Chief Complaint: Lower Ext remity Injury Discharge Problem: Effusion of left knee, 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 Call [facility] ( [phone]) or report to the closest Emergency Room. Call 911 if necessary. 12/26/14 2208 <Electronically signed by Donn Jacobo MD> Date Donn Jacobo MD Cosigner Signature (If Indicated): Date CC: Ana Cai DO -Jul-2014 Carotid Duplex Ultrasound Result: Comments: See Note; NOTES: [facility] Cardiovascular Services [address] [place] [address] Carotid Duplex Ultrasound 07/10/14 0909 MR#: [id number] Acct: [id number] Dudley e: ORACIO ELIZALDE Rep #: [id number] : 1960 54 From: Robin Fabian MD Attending Dr: Ana Cai DO Status: REG CLI Ordering Dr: Ana Cai DO Date: 07/10/14 Location: [facility] Sex: M C Admitt ed: Rt. [...] the left vertebral artery. Procedure Carotid Duplex 67543. The exam was diagnostic. Exam performed in department. Interp retation Summary Mild (<50%) stenosis right extracranial internal carotid. Mild (<50%) stenosis left extracranial internal carotid. Flow within the vertebral arteries is antegrade michelle aterally. Ordering Physician: Ana Cai Referring Physician: Lata Valle Performed By: SAMUEL Juan 07/15/14823 Date Robin Fabian MD CC: Ana Cai DO Da te Dictated: 07/10/14908 Date Transcribed: 07/15/14823 Candlemaker: Signed 15-Jul-2014 Carotid Duplex Ultrasound Result: Comments: See Note; NOTES: [facility] Cardiovascular Services [address] [place] [address] Carotid Duplex Ultrasound 07/10/14908 MR#: [id number] Acct: [id number] Dudley e: ORACIO ELIZALDE Rep #: [id number] : 1960 54 From: Robin Fabian MD Attending Dr: Ana Cai DO Status: REG CLI Ordering Dr: Ana Cai DO Date: 07/10/14 Location: [facility] Sex: M C Admitt ed: Rt. [...] the left vertebral artery. Procedure Carotid Duplex 65415. The exam was diagnostic. Exam performed in department. Interp retation Summary Mild (<50%) stenosis right extracranial internal carotid. Mild (<50%) stenosis left extracranial internal carotid. Flow within the vertebral arteries is antegrade michelle aterally. Ordering Physician: Ana Cai Referring Physician: Lata Valle Performed By: SAMUEL Juan 07/15/14 08 Date Robin Fabian MD CC: Ana Cai DO Da te Dictated: 07/10/14908 Date Transcribed: 07/15/14823 Candlemaker: Signed 26-Jan-2014 Knee 4 or More Views Result: Comments: See Note; NOTES: [facility] Imaging Services [address] [place] [address] Radiology Report MR#: [id number] Acct: [id number] Name: ORACIO ELIZALDE Rep #: [id number] : 1960 53 From: Cuauhtemoc Vo MD PCP: Ana Cai DO Status: REG CLI Study: Knee 4 or More Views Date of Exam: 01/26/14 Exam# [id number] Ordering Dr: Lata Valle MD ERIC DY: [...] Cuauhtemoc Vo MD at 13:17 EDT Tel [phone], Service support [phone], RAD/Knee 4 or More Views IM PRESSION: Degenerative arthrosis. Mild synovial thickening. Electronically Signed: Cuauhtemoc Vo MD at 13:17 EDT Tel [phone], Service support [phone], CC: Ana Cai DO; Lata Valle MD Candlemaker: Signed 26-Jan-2014 Knee 4 or More Views Result: Comments: See Note; NOTES: [facility] Imaging Services [address] [place] [address] Radiology Report MR#: [id number] Acct: [id number] Name: ORACIO ELIZALDE Rep #: [id number] : 1960 M 53 From: Cuauhtemoc Vo MD PCP: Ana Cai DO Status: REG CLI Study: Knee 4 or More Views Date of Exam: 01/26/14 Exam# [id number] Ordering Dr: Lata Valle MD ERIC DY: [...] Signed: Rosa Ambriz at 13:17 EDT Tel [phone], Service support [phone], RAD/Knee 4 or More Views IMPRESSION: Minimal synovial thickening. Electronically Sig la: Cuauhtemoc Vo MD at 13:17 EDT Tel [phone], Service support [phone], CC: Ana Cai DO; Lata Valle MD Candlemaker: Signed 29-Aug-2013 Sleep Study Report Result: Comments: See Note; NOTES: [facility] [address] [place] [address] Polysomnography with NCPAP MR#: [id number] Acct: [id number] Name: ANDRA ELIZALDE Rep #: [id number] : 1960 53 From: Westley Porter MD PCP: Ana Cai DO Status: REG CLI Ordering Dr.: Ana Cai DO Date: 08/21/13 Sex: M C SLEEP HISTORY: This is a CPAP titratio n study performed on this 53-year-old male with a body mass index of 28 and an Houston Sleepiness Scale score of 12. He has [...] version). Please note that a reference to [facility] AHI in this report is consistent with the current Hypopnea definition according to Medicare Criteria and an AASM AHI refere nce is consistent with the current Hypopnea definition according to the AASM criteria. PROCEDURE: The study was attended continuously by a glass technician/installer. Monitored parameters included left and r ight [...] Study Report Result: Comments: See Note; NOTES: [facility] [address] [place] [address] Polysomnography MR#: [id number] Acct: [id number] Name: ORACIO ELIZALDE Rep #: [id number] : 1960 53 From: Terrence Turner MD PCP: Ana Cai DO Status: REG CLI Ordering Dr.: Ana Cai DO Date: 08/01/13 Sex: M C REFERRING PHYSICIAN: Dr. Cai. SLEEP HISTORY: The patient is a 53-year-old gentleman with a calculated body mass index of 28 and an Houston Sleepiness Scale score of 12/24. He has [...] version). Please note that a reference to [facility] AHI in this report is consistent with the current Hy popnea definition according to Medicare Criteria and an AASM AHI reference is consistent with the current Hypopnea definition according to the AASM criteria. PROCEDURE: The study was attended kai nuously by a glass technician/installer. Monitored parameters included left and right EOG, [...] and Lateral Result: Comments: See Note; NOTES: [facility] Imaging Services [address] [place] [address] Radiology Report MR#: [id number] Acct: [id number] Name: ORACIO ELIZALDE Chu Rep #: [id number] : 1960 M 53 From: Wesley Ramirez MD PCP: Ana Cai DO Status: REG CLI Study: Chest PA and Lateral Date of Exam: 08/05/13 Exam# [id number] Ordering Dr: Ana Cai DO STUDY: X-RA [...] at 13:55 EST , Service sup port [phone], CC: Ana Cai DO Candlemaker: Signed Immunization Name Dates Details Tdap (7 [...] smoker Vital Signs Date Test Result Details :51 Temperature 97.6 f Comments: Method: Temporal [...] kg/m2 Body Surface Area Calculated 2.17 m2 52-Vkg-820287:45 Comments: 122/80 recheck bp Temperature 96.7 f [...] Value Details :58 CBC W/Diff, Automated Comments: [facility] [address] [place], [place], [address] Absolute Lymph 1.59 {X10_3/ul} (Normal) Range: 0.83-4.51 [...] 4.6-6.2 WBC 5.9 K/mm3 (Normal) Range: 4.4-11.0 89-Htk-921341:58 Comprehensive Metabolic Profil Comments: [facility] [address] [place], [address] GAP 9 (Normal) Range: 5-15 CO2 30.0 [...] Comments: Please note revised GLUCOSE reference range hdxaqqiua56/02/2018. 87-Pbt-74078:24 CBC with auto diff Comments: PATIENT NOT FASTINGPERFORMED BY: [facility] Urejpm9099 [facility] [id number] Information: NURSE DRAW (66152) Immature Grans (Abs) 0.0 {x10E3/uL} (Normal) Range: [...] PANEL, COMPREHENSIVE Comments: PATIENT NOT FASTINGPERFORMED BY: [facility]kikpx[facility]331 [facility] [id number] (82157) ALT (SGPT) 27 [iU]/L (Normal) Range: 0-44 [...] Range: 65-99 :17 CBC W/Diff, Automated Comments: [facility] [address] [place], [address] Absolute Lymph 1.70 {X10_3/ul} (Normal) [...] 4.6-6.2 WBC 5.8 K/mm3 (Normal) Range: 4.4-11.0 10-Egh-64896:17 Comprehensive Metabolic Profil Comments: [facility] [address] [place], [place], [address] GAP 5 (Normal) Range: 5-15 CO2 29.0 [...] A.D.A. criteria.Please note revised GLUCOSE reference range eynbcuiaz77/02/2018. 17-Dec-20176:22 CBC W/Diff, Automated Comments: [facility] [address] [place], [place], [address] ; review at 12/24 Absolute Lymph 1.33 [...] Range: 4.4-11.0 17-Dec-20176:22 Comprehensive Metabolic Profil Comments: [facility] [address] [place], [place], [address] GAP 7 (Normal) Range: 5-15 CO2 29.0 [...] Comments: Please note revised GLUCOSE reference range rheoczecz25/02/2018. 17-Dec-20176:22 Lipid Profile Comments: [facility] [address] [place], [place], [address] VLDL 23 mg/dL (Normal) Range: 5-40 LDL [...] Risk 17-Dec-20176:22 PSA,Total - Annual Screen Comments: [facility] [address] [place], [place], [address] PSA,TOT SCREEN 0.85 ng/mL (Normal) Range: 0.00-4.00 Comments: This test was performed using the TPSA assay method for theO4IT chemistry system. Values obtained with differentassay methods cannot be used interchangably.When changing PSA assays in the course of monitoring apatient, additional sequential testing should be carriedout to confirm baseline values. 17-Dec-20176:22 Thyroid Stim Hormone (TSH) Comments: [facility] [address] [place], [address] TSH 1.13 {uIU/mL} (Normal) Range: 0.358-3.74 :56 CBC W/Diff, Automated Comments: [facility] [address] [place], [place], [address] Absolute Lymph 1.48 {X10_3/ul} (Normal) Range: 0.83-4.51 [...] Range: 4.4-11.0 :56 Comprehensive Metabolic Profil Comments: [facility] [address] [place], [place], [address] GAP 6 (Normal) Range: 5-15 CO2 29.0 mmol/L (Normal) Range: 21.0-32.0 CL 107 mmol/L (Normal) Range: 98-107 K 4.0 mmol/L (Normal) Range: 3.5-5.1 NA 142 mmol/L (Normal) Range: 136-145 T BILI 0.70 mg/dL (Normal) Range: 0.20-1.00 ALT 42 U/L (Normal) Range: 16-61 Comments: Please note revised ALT reference range brrzfjtia07/28/2018. ALK P 59 U/L (Normal) Range: 45-117 [...] Comments: Please note revised GLUCOSE reference range qgvbnwurr32/02/2018. 50-Plc-87489:18 CBC W/Diff, Automated Comments: [facility] [address] [place], [address] ; review 09/03 Absolute Lymph 1.62 {X10_3/ul} [...] 4.6-6.2 WBC 6.0 K/mm3 (Normal) Range: 4.4-11.0 70-Ork-83897:18 Comprehensive Metabolic Profil Comments: [facility] [address] [place], [place], [address] GAP 6 (Normal) Range: 5-15 CO2 31.0 [...] 7-18 GLU 81 mg/dL (Normal) Range: 70-110 89-Pae-38184:18 Lipid Profile Comments: [facility] [address] [place], [address] VLDL 24 mg/dL (Normal) Range: 5-40 LDL [...] 200-240 mg/dL Borderline >240 mg/dL High Risk 88-Oso-33064:18 Thyroid Stim Hormone (TSH) Comments: [facility] [address] [place], [address] TSH 0.81 {uIU/mL} (Normal) Range: 0.358-3.74 01-Ian-947788:10 CBC W/Diff, Automated Comments: [facility] [address] [place], [address] Absolute Lymph 1.62 {X10_3/ul} (Normal) [...] 4.6-6.2 WBC 7.0 K/mm3 (Normal) Range: 4.4-11.0 46-Rls-175647:10 Comprehensive Metabolic Profil Comments: [facility] [address] [place], [place], [address] GAP 7 (Normal) Range: 5-15 CO2 30.0 [...] 7-18 GLU 90 mg/dL (Normal) Range: 70-110 87-Wfk-72574:09 CBC W/Diff, Automated Comments: [facility] [address] [place], [place], [address] ; will review at upcoming appt Absolute [...] 4.6-6.2 WBC 6.0 K/mm3 (Normal) Range: 4.4-11.0 83-Twy-22989:09 Comprehensive Metabolic Profil Comments: [facility] [address] [place], [place], [address] GAP 7 (Normal) Range: 5-15 CO2 32.0 [...] 7-18 GLU 89 mg/dL (Normal) Range: 70-110 24-Fgc-99319:09 Hepatitis C Antibodies Comments: [facility] (refer to report for specific site)refer to report for address and phone number; will review on 05/28 HEP C AB <0.1 {s/co_ratio} (Normal) Range: 0.0-0.9 Comments: Negative: < 0.8 Indeterminate: 0.8 - 0.9 Positive: > 0.9 The CDC recommends that a positive HCV antibody result be followed up with a HCV Nucleic Acid Amplification test (776720).Performed at: [address] [id number] Director: Jose Francisco Coates PhD, Phone: [phone] 04-Gqi-70629:09 Lipid Profile Comments: [facility] [address]fprwl3[address] [facility] [place], [address] VLDL 20 mg/dL (Normal) Range: [...] Risk :09 Thyroid Stim Hormone (TSH) Comments: [facility] [address] [place], [address] TSH 0.88 {uIU/mL} (Normal) Range: 0.358-3.74 :14 CBC W/Diff, Automated Comments: [facility] [address] [place], [place], [address] Absolute Lymph 1.50 {X10_3/ul} (Normal) Range: 0.83-4.51 [...] 4.6-6.2 WBC 7.8 K/mm3 (Normal) Range: 4.4-11.0 82-Ouh-051449:14 Comprehensive Metabolic Profil Comments: [facility] [address] [place], [address] GAP 7 (Normal) Range: 5-15 CO2 28.0 [...] auto diff Comments: PATIENT NOT FASTINGPERFORMED BY: [facility]wayXdhmhx8986 [facility] [id number] Information: NURSE DRAW (25399) Immature Grans (Abs) 0.0 {x10E3/uL} (Normal) Range: [...] COMPREHENSIVE Comments: PATIENT NOT FASTINGPERFORMED BY: [facility] Wltajw3600 [facility] [id number] (40862) ALT (SGPT) 52 [iU]/L (Abnormal) Range: 0-44 [...] Glucose, Serum 105 mg/dL (Abnormal) Range: 65-99 06-Dqs-863994:11 CBC W/Diff, Automated Comments: DR VALLE ORDERED CMP CBCD ONLYDR VALLE ORDERED CMP CBCD [facility] [address]ccz8[address] [place], [place], [address] Absolute Lymph 1.15 {X10_3/ul} (Normal) Range: 0.83-4.51 [...] 4.6-6.2 WBC 7.1 K/mm3 (Normal) Range: 4.4-11.0 75-Prs-765518:11 Comprehensive Metabolic Profil Comments: DR VALLE ORDERED CMP CBCD [facility] [address]cl[address] [place], [address] GAP 6 (Normal) Range: 5-15 CO2 30.0 [...] 7-18 GLU 101 mg/dL (Normal) Range: 70-110 02-Sap-534753:11 CRP Comments: DR VALLE ORDERED CMP CBCD [facility] [address] [place], [address] C-REACTIVE PROT 4.36 mg/L (Abnormal) Range: 0.0-3.0 Comments: C-Reactive Protein (CRP) provides useful information for thediagnosis, therapy and monitoring of inflammatory processesand associated diseases. For the evaluation of Relative Riskfor Cardiovascular Dise ase, a High Sensitivity CRP (HSCRP)should be ordered. :11 Free T3 Comments: DR VALLE ORDERED [facility] CBCD [facility] [address] [place], [address] FREE T3 2.7 pg/mL (Normal) Range: 2.18-3.98 :11 Lipid Profile Comments: DR VALLE [facility] [address]zjzq[address] [place], [address] VLDL 15 mg/dL (Normal) Range: [...] :11 PSA,Total - Annual Screen Comments: DR AVLLE ORDERED [facility] [address] [place], [address] PSA,TOT SCREEN 0.89 ng/mL (Normal) Range: 0.00-4.00 Comments: This test was performed using the TPSA assay method for the[facility] chemistry system. Values obtained with differentassay methods cannot be used interchangably.When changing PSA assays in the course of monitoring apatient, additional sequential testing should be carriedout to confirm baseline values. :11 T4 Free Direct Comments: DR VALLE ORDERED CMP CBCD [facility] [address] [place], [place], [address] T4 FREE DIRECT 1.08 ng/dL (Normal) Range: 0.76-1.46 :11 Thyroid Stim Hormone (TSH) Comments: DR VALLE ORDERED CMP CBCD [facility] [address] [place], [place], [address] TSH 0.36 {uIU/mL} (Normal) Range: 0.358-3.74 :44 CBC W/Diff, Automated Comments: [facility] [address] [facility] [address] [place], [place], [address] Absolute Lymph 1.41 {X10_3/ul} (Normal) Range: 0.83-4.51 [...] 4.6-6.2 WBC 6.6 K/mm3 (Normal) Range: 4.4-11.0 :44 Comprehensive Metabolic Profil Comments: T3F T4F TSHDR.LEONARD CMP [facility] [address]cyzo[address] [place], [address] GAP 6 (Normal) Range: 5-15 CO2 30.0 [...] 7-18 GLU 91 mg/dL (Normal) Range: 70-110 20-Zcs-236355:44 Free T3 Comments: T3F T4F TSHDR.[facility] [address]ojzd[address] [place], [address] FREE T3 2.6 pg/mL (Normal) Range: 2.18-3.98 :44 T4 Free Direct Comments: T3F T4F TSHDR.[facility] [address]gznl[address] [place], [address] T4 FREE DIRECT 1.04 ng/dL (Normal) Range: 0.76-1.46 :44 Thyroid Stim Hormone (TSH) Comments: T3F T4F TSHDR.[facility] [address]vjnn[address] [place], [address] TSH 0.26 {uIU/mL} (Abnormal) Range: 0.358-3.74 :13 CBC W/Diff, Automated Comments: [facility] [address] [place], [place], [address] ; apt next week Absolute Lymph 1.59 [...] Range: 4.4-11.0 :13 Comprehensive Metabolic Profil Comments: [facility] [address] [place], [place], [address] GAP 1 (Abnormal) Range: 5-15 CO2 33.0 [...] 70-110 :13 CRP, High Sensitivity Cardiac Comments: [facility] [address] [place], [place], [address] CRP HIGH SENS 2.19 mg/L (Normal) Comments: Low Relative Risk of CVD <1.0 mg/L Average Relative Risk of CVD 1.0 - 3.0 mg/L High Relative Risk of CVD >3.0 mg/L 18-Jul-20166:13 Lipid Profile Comments: [facility] [address] [place], [place], [address] VLDL 23 mg/dL (Normal) Range: 5-40 LDL [...] High Risk :13 Vitamin D,25 Hydroxy Comments: [facility] [address] [place], [place], [address] Vitamin D 25-OH 31.7 ng/mL (Normal) Comments: Vitamin D 25(OH) Status Range Deficiency <20 ng/mL (50nmol/L) Insuffciency 20 - 30 ng/mL (50 - 75 nmol/L) Sufficiency 30 - 100 ng/mL (75 - 250 nmol/L) Toxicity >100 ng/mL (>250 nmol/L); ADDENDA: normal and has apt next week 94-Qfj-053427:07 Free T3 Comments: [facility] [address] [place], [address] FREE T3 2.4 pg/mL (Normal) Range: 2.18-3.98 74-Kjf-626486:07 T4 Free Direct Comments: [facility] [address]pe[address] [place], [address] T4 FREE DIRECT 1.16 ng/dL (Normal) Range: 0.76-1.46 98-Ibu-439492:07 Thyroid Stim Hormone (TSH) Comments: [facility] [address] [place], [address] TSH 0.16 {uIU/mL} (Abnormal) Range: 0.358-3.74 :20 Urine Drug Screen neg for everything (Office - Urine Drug (Normal) Screen 11 Panel) (71016) :13 CBC W/Diff, Automated Comments: LIPID IS FOR [facility]. Aparicio [facility] Jyvbjtjwdj8918 [facility] [address] [place], [place], [address] Absolute Lymph 1.31 {X10_3/ul} (Normal) Range: 0.83-4.51 [...] 4.6-6.2 WBC 7.0 K/mm3 (Normal) Range: 4.4-11.0 86-Ghw-58815:13 Comprehensive Metabolic Profil Comments: LIPID IS FOR [facility]. [facility] Hzwfquomxe060[address] [place], [place], [address] GAP 6 (Normal) Range: 5-15 CO2 29.0 [...] IS FOR DR. Aparicio [facility] [address]jjtrlhc[address] [place], [address] VLDL 21 mg/dL (Normal) Range: 5-40 LDL [...] Borderline >240 mg/dL High Risk :59 TSH (92116) Comments: PATIENT NOT FASTINGPERFORMED BY: CB [facility] Hoxinv4096 [address] Road[address]ublin [place] [id number] TSH 0.250 {uIU/mL} (Abnormal) Range: 0.450-4.500 :59 CALCIUM, IONIZED (20457) Comments: PATIENT NOT FASTINGPERFORMED BY: CB [facility] Wlathd1068 [address] Road[address]ublin [place] [id number] Calcium, Ionized, Serum 5.3 mg/dL (Normal) Range: 4.5-5.6 :59 PHOSPHORUS (72945) Comments: PATIENT NOT FASTINGPERFORMED BY: CB [facility] Dtsjgm6717 [address] RoadDublin [place] [id number] Phosphorus, Serum 4.1 mg/dL (Normal) Range: 2.5-4.5 :59 PARATHORMONE (60997) Comments: PATIENT NOT FASTINGPERFORMED BY: CB [facility] Fpzskb4124 Philip RoadDublin [place] [id number] PTH, Intact 29 pg/mL (Normal) Range: 15-65 :59 VITAMIN B-12 (CYANOCOBALAMIN) Comments: PATIENT NOT FASTINGPERFORMED BY: [facility]6[address] [facility] [id number] (23083) Vitamin B12 793 pg/mL (Normal) Range: 211-946 :59 Anti-TPO Antibody (26594) Comments: PATIENT NOT FASTINGPERFORMED BY: [place] [id number] [facility] [id number] Thyroid Peroxidase (TPO) Ab 8 {IU/mL} (Normal) Range: 0-34 :59 T4, FREE (THYROXINE) Comments: PATIENT NOT FASTINGPERFORMED BY: [facility]6[address] [facility] [id number] Information: [id number] (10683) T4,Free(Direct) 1.44 ng/dL (Normal) Range: 0.82-1.77 :59 T3, FREE (TRIDOTHYRONINE) (30962) Comments: PATIENT NOT FASTINGPERFORMED BY: [facility]6[address] [facility] [id number] Triiodothyronine,Free,Serum 3.1 pg/mL (Normal) Range: 2.0-4.4 :13 CBC W/Diff, Automated Comments: CBCD IS [facility] [address] [place], [place], [id number] ; ordered by maco Absolute Lymph 0.96 [...] 4.6-6.2 WBC 6.8 K/mm3 (Normal) Range: 4.4-11.0 45-Gfy-78167:13 Comprehensive Metabolic Profil Comments: LIPID,CMP,TSH ARE FOR AND CMP AND CBCD ARE FOR [facility] Mknx[address]jdcvm[address] [facility]. [place], [place], [id number] GAP 4 (Abnormal) Range: 5-15 CO2 31.0 [...] FOR AND CMP AND CBCD ARE FOR [facility] [address] [place], [address](164) VLDL 19 mg/dL (Normal) Range: 5-40 LDL [...] FOR AND CMP AND CBCD ARE FOR [facility] [address] [place], [address] TSH 0.61 {uIU/mL} (Normal) Range: 0.358-3.74 93-Uop-830768:22 Rapid Flu (97130 x 2) Comments: neg Influenza A Ag negative (Normal) : Jacy Osei CMP14 SPRCS (Normal) Comments: PATIENT WAS FASTINGPERFORMED BY: [facility]6370 [facility] [id number] 17 Default Comments: A hand-written panel/profile was received from your office. Inaccordance with the [facility] Ambiguous Test Code Policy dated February2003, we have completed your order by using the closest currentlyor formerl y recognized AMA panel. We have assigned ComprehensiveMetabolic Panel (14), Test Code #080101 to this request. If thisis not the testing you wished to receive on this specimen, pleasecontact the [facility] Client Inquiry/Technical Services Departmentto clarify the test order. We appreciate your business. : Jacy Salmeron LP SPRCS (Normal) Comments: PATIENT WAS FASTINGPERFORMED BY: [facility]6370 [facility] [id number] 17 Default Comments: A hand-written panel/profile was received from your office. Inaccordance with the [facility] Ambiguous Test Code Policy dated February2003, we have completed your order by using the closest currentlyor formerl y recognized AMA panel. We have assigned Lipid Panel,Test Code #301867 to this request. If this is not the testing youwished to receive on this specimen, please contact the [facility]/Techni burak Services Department to clarify the testorder. We appreciate your business. :17 Comp. Metabolic Panel (14) Comments: PATIENT WAS FASTINGPERFORMED BY: [facility]6370 [facility] [id number] ALT (SGPT) 21 [iU]/L (Normal) Range: 0-44 [...] Lipid Panel Comments: PATIENT WAS FASTINGPERFORMED BY: [facility]ne70 [facility] [id number]; non-emergent till apt LDL Cholesterol Calc 95 mg/dL (Normal) Range: 0-99 VLDL Cholesterol Burak 21 mg/dL (Normal) Range: 5-40 HDL Cholesterol 33 mg/dL (Abnormal) Comments: According to ATP-III Guidelines, HDL-C >59 mg/dL is considered anegative risk factor for CHD. Triglycerides 107 mg/dL (Normal) Range: 0-149 Cholesterol, Total 149 mg/dL (Normal) Range: 100-199 :17 Prostate-Specific Ag, Serum Comments: PATIENT WAS FASTINGPERFORMED BY: [id number] [facility] [id number] Prostate Specific Ag, 1.0 ng/mL (Normal) Range: 0.0-4.0 Serum Comments: Identiv ECLIA methodology. .According to the [place] [employer], Serum PSA shoulddecrease and remain [...] :57 CBC W/Diff, Automated Comments: Test performed at:[facility] [address] [place] [address] Absolute Lymph 1.54 {X10_3/ul} (Normal) [...] :57 Comprehensive Metabolic Profil Comments: Test performed at:[facility] [address] [place] [address] GAP 7 (Normal) Range: 5-15 [...] 7-18 GLU 81 mg/dL (Normal) Range: 70-110 76-Wjc-195953:58 CBC W/Diff, Automated Comments: Test performed at:[facility] [address] [place], [place] [address] Absolute Lymph 1.35 {X10_3/ul} (Normal) Range: 0.83-4.51 [...] 4.6-6.2 WBC 6.9 K/mm3 (Normal) Range: 4.4-11.0 58-Hej-163408:58 Comprehensive Metabolic Profil Comments: Test performed at:[facility] [address] [place], [place] [address] GAP 7 (Normal) Range: 5-15 CO2 29.0 [...] 7-18 GLU 82 mg/dL (Normal) Range: 70-110 68-Brk-95706:27 CBC W/Diff, Automated Comments: Test performed at:[facility] [address] [place] [address] Absolute Lymph 1.27 {X10_3/ul} (Normal) Range: 0.83-4.51 [...] DR VALLE ORDERED CMP ABD CBCTest performed at:[facility] [address] [place] [address] GAP 5 (Normal) Range: 5-15 [...] DR VALLE ORDERED CMP ABD CBCTest performed at:[facility] [address] [place], [place] [id number] VLDL 17 mg/dL (Normal) Range: 5-40 LDL [...] 200-240 mg/dL Borderline >240 mg/dL High Risk 93-Itc-705682:25 Crystals, Body Fluid Comments: Comments: ArthrocentesisComments: ArthrocentesisTest performed at:[facility] [address]av[address] [facility] [place] [address] PATH REV May foll (Normal) SOURCE/BF SYNOVIAL (Normal) CRYSTALS/BF Absent (Normal) 58-Ebf-086848:25 Glucose, Body Fluid Comments: Comments: ArthrocentesisTest performed at:[facility] [address] [place] [address] GLU,BF 10 mg/dL (Normal) 02-Ayh-535965:25 Protein, Body Fluid Comments: Comments: ArthrocentesisTest performed at:[facility] [address] [place], [place] [address] PROTEIN,BF 4.0 g/dL (Normal) 61-Uit-06907:29 CMP GAP 5 (Normal) Range: 5-15 CO2 [...] CHOL 117 mg/dL (Normal) Comments: <200 mg/dL Imumhuznq284-938 mg/dL Borderline>240 mg/dL High Risk :20 PSA 1.02 ng/mL (Normal) Range: 0.00-4.00 Comments: This test was performed using the TPSA assay method for theO4IT chemistry system. Values obtained with differentassay methods cannot be used interchangably.When changing PSA assays in the course of monitoring apatient, additional sequential testing should be carriedout to confirm baseline values. 65-Lee-545214:02 CBCD ALC 1.41 {X10_3/ul} (Normal) Range: 0.83-4.51 [...] 4.6-6.2 WBC 5.7 K/mm3 (Normal) Range: 4.4-11.0 30-Lqz-741393:02 CMP GAP 4 (Abnormal) Range: 5-15 CO2 [...] 7-18 GLU 93 mg/dL (Normal) Range: 70-110 56-Grr-877416:08 CBCD ALC 0.86 {X10_3/ul} (Normal) Range: 0.83-4.51 [...] 4.6-6.2 WBC 5.2 K/mm3 (Normal) Range: 4.4-11.0 49-Ufq-723566:08 CMP GAP 4 (Abnormal) Range: 5-15 CO2 [...] CHOL 109 mg/dL (Normal) Comments: <200 mg/dL Mnqgxswhr209-969 mg/dL Borderline>240 mg/dL High Risk 5-Dec-37367:13 DANIELLE CULTURE-OTHER (77203) Comments: PATIENT NOT FASTINGPERFORMED BY: DERIK [facility] Smfzqw3301 [facility] [id number] Information: SRC:GURWINDER [id number] Result 1 RRF (Normal) Comments: Routine respiratory kaden Upper Respiratory Culture Final report (Normal) 2-Ibd-463024:27 Rapid Strep Test, Office (80843) Rapid Strep Test, Office Negative (Normal) :12 [...] CHOL 149 mg/dL (Normal) Comments: <200 mg/dL Eyltrsgik705-086 mg/dL Borderline>240 mg/dL High Risk :29 CBCD [...] CHOL 143 mg/dL (Normal) Comments: <200 mg/dL Kcosfnqpc627-480 mg/dL Borderline>240 mg/dL High Risk TRIG 66 mg/dL (Normal) Comments: Serum Triglycerides Reference IntervalNormal <150 mg/dLBorderline high 150 - 199 mg/dLHigh 200 - 499 mg/ dLVery High > or = 500 mg/dL :58 CA 8.7 mg/dL (Normal) Range: 8.5-10.1 :58 PHOS 2.8 mg/dL (Normal) Range: 2.5-4.9 :58 PTHIN 43 pg/mL (Normal) Range: 14-72 :58 TSH 0.49 {uIU/mL} (Normal) Range: 0.358-3.74 44-Tar-429426:58 VITD 33.8 ng/mL (Normal) Range: 30.0-100.0 Comments: Vitamin D deficiency has been defined by the [place] of[place]icine and an Endocrine Society practice guideline as alevel of serum 25-OH vitamin D less than 20 ng/mL (1,2).The Endocrine Society went on to further define vitamin Dinsufficiency as a level between 21 and 29 ng/mL (2).1. IOM ([place] of Medicine). 2010. Dietary reference intakes for calcium and D. [place]: The National Academies Press.2. Melanie MF, Evans [place], Lora CRONIN, et al. Evaluation, treatment, and prevention of vitamin D deficiency: an Endocrine Society clinical practice guideline. JCEM. 2010; 96(7): 1911-30.Performed at: [address] [id number] Director: Abdi Navarrete PhD, Phone: [phone] :[phone] CBCD Comments: DR CAI ORDERED CMP [...] CMP Comments: DR CAI ORDERED CMP LIPIDDR VALLE ORDERED CMP CBCD GAP 6 (Normal) Range: [...] Very High > or = 500 mg/dL 3-Qln-443489:36 CBCMD Comments: DR VLALE ORDERED CMP CBCDDR FAST ORDERED CMP PSA [...] Please note: Revised HEMOGLOBIN REFERENCE RANGES Reference allyve effective 03/13/12.Please note: Revised HEMOGLOBIN REFERENCE RANGES Reference allyve effective 03/13/12. RBC 4.86 {M/mm3} (Normal) Range: 4.6-6.2 WBC 6.3 K/mm3 (Normal) Range: 4.4-11.0 0-Syj-678712:36 CMP Comments: DR VALLE ORDERED CMP CBCDDR [...] 7-18 GLU 93 mg/dL (Normal) Range: 70-110 3-Jrm-649237:36 LIPID Comments: DR VALLE ORDERED CMP CBCDDR [...] performed using the TPSA assay method for theEmote GamesDueDil chemistry system. Values obtained with differentassay methods [...] 4.6-6.2 WBC 5.9 K/mm3 (Normal) Range: 4.4-11.0 43-Mgy-525820:09 CMP Comments: ORDERED LIPID CMPDR. LEONARD ORDERED [...] 0.8-1.3 GLU 89 mg/dL (Normal) Range: 70-110 60-Diz-316819:09 LIPID Comments: ORDERED LIPID CMPDR. LEONARD ORDERED [...] 200-240 mg/dL Borderline >240 mg/dL High Risk 04-Uch-781051:09 VITD 40.4 ng/mL (Normal) Comments: ORDERED LIPID CMPDR. LEONARD ORDERED CMP CBCD VITD Range: 30.0-100.0 Comments: Vitamin D deficiency has been defined by the [place] of[place]icine and an Endocrine Society practice guideline as alevel of serum 25-OH vitamin D less than 20 ng/mL (1,2).The Endocrine Society went on to further define vitamin Dinsufficiency as a level between 21 and 29 ng/mL (2).1. IOM ([place] of Medicine). 2010. Dietary reference intakes for calcium and D. [place]: The National Academies Press.2. Melanie MF, [place], Lora CRONIN, et al. Evaluation, treatment, and prevention of vitamin D deficiency: an Endocrine Society clinical practice guideline. JCEM. 2010; 96(7): 1911-30. .Effective October 16, 2011, Vitamin D, 25 Hydroxy specimen requirements will change to serum only.Performed at: - Lab[address] [id number] Director: Mirna Gan MD, Phone: [phone] 74-Juh-93925:26 CBCD Comments: DR CAI ORDERED LIPID,LIVERDR LEONARD [...] 4.6-6.2 WBC 6.7 K/mm3 (Normal) Range: 4.4-11.0 62-Rqx-78945:26 COMP METABOLIC Comments: DR CAI ORDERED LIPID,LIVERDR [...] PERFORMED FROM THISSPECIMEN. PHYSICIAN ORDER REQUIRED. CALL [facility] FORTHIS REFLEX TESTING. [phone] :[phone] ANEX PANEL [employer] AB 47 AU/mL (Normal) ANTI-COOK AB 12 AU/mL (Normal) :15 ANTI JO1 ANTI KATERIN 21 AU/mL (Normal) :15 ANTI SCL 70 ANTI-SCL 70 15 AU/mL (Normal) :15 ANTI-CCP 317484 3 {units} (Normal) Range: 0-19 Comments: Negative [...] 1.002-1.030 COLOR YELLOW (Normal) :15 HB CORE [id number] SeeNote (Normal) Comments: Result: Negative Performed at: [facility] Lab[address] [id number] Director: Mirna Gan MD, Phone: [phone] at: [facility] LabCo[address] [id number] Director: Terrence Moreno MD, Phone: [phone] at: - [facility] UKS[address] [place], [place] [id number] Director: Viral Maya PhD, Phone: [phone] HBsAg 6510 HB SURF AG 6510 SeeNote [...] amount of antibody present. HEP C AB 054777 <0.1 (Normal) Range: 0.0-0.9 Comments: Negative: < [...] SSB 18 AU/mL (Normal) :15 VIT D,25 28872 46.3 ng/mL (Normal) Range: 32.0-100.0 Comments: Recent studies consider the lower limit of 32.0 ng/mL to nicanor threshold for optimal health.Aleks [place]. J Nutr. 2004;135(2):317-22. :17 AMANDEEP DIR SEMI-QL AMANDEEP DIRECT 261 AU/mL (Abnormal) Comments: REFLEX AMANDEEP PANEL TESTING CAN BE PERFORMED FROM THISSPECIMEN. PHYSICIAN ORDER REQUIRED. CALL [facility] FORTHIS REFLEX TESTING. [phone] 09-Vbg-810021:17 ANTI-dsDNA AB 9 {IU/mL} (Normal) :17 C-REACTIVE PROT < 2.90 mg/L (Normal) Range: 0.0-3.0 Comments: C-Reactive Protein (CRP) provides useful information for thediagnosis, therapy and monitoring of inflammatory processesand associated diseases. For the evaluation of Relative Riskfor Cardiovascular Dise ase, a High Sensitivity CRP (HSCRP)should be ordered. 03-Niu-482029:17 CBCD,SMEAR DIFF CELLS COUNTED 100 (Normal) EOS [...] T PROT 6.6 g/dL (Normal) Range: 6.4-8.2 :17 COMPLETE UA BACTERIA 0 SEEN {/hpf} (Normal) [...] 1.0 CLARITY CLEAR (Normal) COLOR YELLOW (Normal) 31-Znp-542571:17 ESR SED RATE 1 mm/h (Normal) Range: 0-20 21-Wok-509105:17 LIPID HDL 28 mg/dL (Abnormal) Comments: Reference [...] CHOL 191 mg/dL (Normal) Comments: <200 mg/dL Cqenmfosb750-171 mg/dL Borderline>240 mg/dL High Risk 34-Pna-201849:17 PSA, SCREEN 0.6 ng/mL (Normal) Range: 0.0-4.0 77-Brq-121573:17 RHEUMATOID FAC < 10.0 {IU/mL} (Normal) Plan [...] Planned Observations Drug Screen (7drug + Alcohol) (45153)Indication: Attention deficit disorder of adult On: 4-Rdm-229480:04 Request TSH (21869)Indication: Hyperthyroidism On: 04-Kdr-900796:04 Request METABOLIC PANEL, COMPREHENSIVE (01237)Indication: Other hyperlipidemia On: 33-Ldj-238497:04 Request LIPID PANEL (84350)Indication: Other hyperlipidemia On: 65-Wsz-762325:04 Request Urine Drug Screen -Medicare (Office - Urine Drug Screen 9 Panel) (20561)Indication: Attention deficit disorder of adult On: 81-Tyg-475704:46 Request Comments: appropriate results positive for amphetamine CBC W/AUTO DIFF WBC (18477)Indication: Memory loss On: 75-Crj-812034:08 Request METABOLIC PANEL, COMPREHENSIVE (44270)Indication: Memory loss On: 89-Mat-067300:08 Request LIPID PANEL (65640)Indication: Other hyperlipidemia On: 92-Dpq-900306:08 Request TSH (22114)Indication: Hyperthyroidism On: 64-Eev-404261:07 Request PSA (PROSTATE SPECIFIC ANTIGEN) (V76.44)Indication: Encounter for screening for malignant neoplasm of prostate (Renamed from Screening for prostate cancer) On: 79-Otu-262070:01 Request HEPATITIS C ANTIBODY (89317)Indication: Liver function abnormality On: 2-Yga-292895:18 Request CBC W/AUTO DIFF WBC (44224)Indication: Liver function abnormality On: 92-Mbm-864132:00 Request TSH (09895)Indication: Hyperthyroidism On: 12-Vwx-288739:59 Request METABOLIC PANEL, COMPREHENSIVE (17401)Indication: Liver function abnormality On: 79-Bun-105657:58 Request LIPID PANEL (94568)Indication: Other hyperlipidemia On: 82-Vad-833085:58 Request METABOLIC PANEL, COMPREHENSIVE (26421)Indication: Liver function abnormality On: 30-Arn-138156:09 Request CBC W/AUTO DIFF WBC (51461)Indication: Anxiety On: :41 Request LIPID PANEL (70738)Indication: Other hyperlipidemia On: 17-Xkj-02848:30 Request TSH (33305)Indication: Hyperthyroidism On: :29 Request HEPATITIS C ANTIBODY (40664)Indication: Encounter for hepatitis C virus screening test for high risk patient On: :44 Request CBC W/AUTO DIFF WBC (98547)Indication: Abnormal C-reactive protein On: 1-Ndo-363945:16 Request METABOLIC PANEL, COMPREHENSIVE (53225)Indication: Other hyperlipidemia On: :15 Request LIPID PANEL (22543)Indication: Other hyperlipidemia On: 0-Ced-339992:15 Request C-REACT PROT HIGH SENS(hsCRP) (63021)Indication: Abnormal C-reactive protein On: 9-Bqa-254759:15 Request PSA (PROSTATE SPECIFIC ANTIGEN) (V76.44)Indication: Encounter for screening for malignant neoplasm of prostate (Renamed from Screening for prostate cancer) On: :16 Request CBC with auto diff (67592)Indication: Memory loss On: :14 Request METABOLIC PANEL, COMPREHENSIVE (69602)Indication: Memory loss On: :14 Request T4, FREE (THYROXINE) (50569)Indication: Hyperthyroidism On: :14 Request T3, FREE (TRIDOTHYRONINE) (37124)Indication: Hyperthyroidism On: :14 Request C-REACT PROT HIGH SENS(hsCRP) (65420)Indication: Abnormal C-reactive protein On: :14 Request LIPID PANEL (09329)Indication: Other hyperlipidemia On: :11 Request TSH (49753)Indication: Hyperthyroidism On: :11 Request T4, FREE (THYROXINE) (19906)Indication: Hyperthyroidism On: :21 Request T3, FREE (TRIDOTHYRONINE) (22700)Indication: Hyperthyroidism On: :21 Request TSH (48237)Indication: Hyperthyroidism On: 24-Tck-442767:13 Request Vitamin D Hydroxy (26521)Indication: Memory loss On: : Request CBC W/AUTO DIFF WBC (62227)Indication: Other hyperlipidemia On: :22 Request LIPID PANEL (10710)Indication: Other hyperlipidemia On: : Request METABOLIC PANEL, COMPREHENSIVE (80477)Indication: Other hyperlipidemia On: : Request C-REACT PROT HIGH SENS(hsCRP) (87703)Indication: Abnormal C-reactive protein On: :21 Request T4, FREE (THYROXINE) (23145)Indication: Abnormal TSH On: :16 Request T3, FREE (TRIDOTHYRONINE) (31136)Indication: Abnormal TSH On: 7-Wwc-108463:16 Request TSH (23185)Indication: Abnormal TSH On: 8-Gfw-582551:16 Request CBC W/AUTO DIFF WBC (40710)Indication: Gastroesophageal reflux disease without esophagitis On: 5-Osx-291808:45 Request METABOLIC PANEL, COMPREHENSIVE (83358)Indication: Other hyperlipidemia On: :45 Request LIPID PANEL (54043)Indication: Other hyperlipidemia On: :44 Request CALCIUM SERUM (88753)Indication: Hypocalcemia On: 92-Ytk-90587:00 Request PHOSPHORUS (96827)Indication: Hypocalcemia On: :59 Request PARATHORMONE (55358)Indication: Hypocalcemia On: :59 Request Vitamin D Hydroxy (72711)Indication: Hypocalcemia On: :59 Request TSH (54696)Indication: Anxiety On: :38 Request METABOLIC PANEL, COMPREHENSIVE (75907)Indication: Other hyperlipidemia On: :38 Request LIPID PANEL (81154)Indication: Other hyperlipidemia On: :33 Request BACT CULTURE ANY-ANAEROBIC (96628)Indication: Sore throat and laryngitis On: :49 Request Rapid Strep Test, Office (99724)Indication: Sore throat and laryngitis On: 60-Ago-110871:48 Request Rapid Flu (50811 x 2)Indication: Fever and chills On: 47-Mjb-284644:48 Request PSA (PROSTATE SPECIFIC ANTIGEN) (V76.44)Indication: Screening for prostate cancer On: 9-Nhz-349475:03 Request METABOLIC PANEL, COMPREHENSIVE (89885)Indication: Other hyperlipidemia On: 7-Bvx-024737:03 Request LIPID PANEL (70717)Indication: Other hyperlipidemia On: :03 Request CBC W/AUTO DIFF WBC (59168)Indication: Elevated blood-pressure reading without diagnosis of hypertension On: :40 Request METABOLIC PANEL, COMPREHENSIVE (09599)Indication: Elevated blood-pressure reading without diagnosis of hypertension On: :40 Request LIPID PANEL (38348)Indication: Other hyperlipidemia On: :40 Request PSA (PROSTATE SPECIFIC ANTIGEN) (V76.44)Indication: screening On: :31 Request METABOLIC PANEL, COMPREHENSIVE (42581)Indication: Other hyperlipidemia On: :30 Request LIPID PANEL (37805)Indication: Other hyperlipidemia On: :29 Request METABOLIC PANEL, COMPREHENSIVE (71774)Indication: Other hyperlipidemia On: 8-Rwt-330924:56 Request PSA (PROSTATE SPECIFIC ANTIGEN) (71826)Indication: Screening for prostate cancer On: 4-Knc-798321:28 Request PSA (PROSTATE SPECIFIC ANTIGEN) (V76.44)Indication: Screening for prostate cancer On: :25 Request METABOLIC PANEL, COMPREHENSIVE (80991)Indication: Anxiety On: : Request LIPID PANEL (16578)Indication: Other hyperlipidemia On: 83-Fdr-837482:00 Request HEPATIC FUNCTION PANEL (13393)Indication: Other hyperlipidemia On: 50-Rqr-853453:00 Request METABOLIC PANEL, COMPREHENSIVE (62491)Indication: Other hyperlipidemia On: :32 Request LIPID PANEL (69832)Indication: Other hyperlipidemia On: :31 Request METABOLIC PANEL, COMPREHENSIVE (46710)Indication: Elevated blood-pressure reading without diagnosis of hypertension On: :23 Request LIPID PANEL (42191)Indication: Other hyperlipidemia On: 68-Wqn-578048:23 Request CALCIUM SERUM (94902)Indication: Hypocalcemia On: :30 Request PARATHORMONE (61101)Indication: Hypocalcemia On: :30 Request PHOSPHORUS (32719)Indication: Hypocalcemia On: :29 Request TSH (38104)Indication: Hypocalcemia On: 99-Zmf-744611:29 Request Vitamin D Hydroxy (88283)Indication: Hypocalcemia On: 95-Rji-902167:29 Request LIPID PANEL (47668)Indication: Other hyperlipidemia On: :44 Request METABOLIC PANEL, COMPREHENSIVE (39507)Indication: Other hyperlipidemia On: 69-Wyc-709535:44 Request PSA (PROSTATE SPECIFIC ANTIGEN) (V76.44)Indication: Screening for prostate cancer On: :09 Request LIPID PANEL (33274)Indication: Other hyperlipidemia On: :08 Request CBC WITH MANUAL DIFF (66241)Indication: Elevated blood-pressure reading without diagnosis of hypertension On: 24-Jep-737613:08 Request METABOLIC PANEL, COMPREHENSIVE (98363)Indication: Elevated blood-pressure reading without diagnosis of hypertension On: :08 Request METABOLIC PANEL, COMPREHENSIVE (44616)Indication: Anxiety On: :46 Request LIPID PANEL (04804)Indication: Other hyperlipidemia On: :46 Request PSA (PROSTATE SPECIFIC ANTIGEN) (V76.44)Indication: Screening for prostate cancer On: 74-Hch-085369:09 Request HEPATIC FUNCTION PANEL (53899)Indication: Other hyperlipidemia On: : Request LIPID PANEL (64243)Indication: Other hyperlipidemia On: 99-Gxw-269771:09 Request PSA (PROSTATE SPECIFIC ANTIGEN) (V76.44)Indication: Screening for prostate cancer On: :11 Request HEPATIC FUNCTION PANEL (13972)Indication: Other hyperlipidemia On: :10 Request LIPID PANEL (78290)Indication: Other hyperlipidemia On: 6-Mny-915048:10 Request HEPATIC FUNCTION PANEL (54620)Indication: Other hyperlipidemia On: :04 Request LIPID PANEL (23843)Indication: Other hyperlipidemia On: 68-Wqd-364187:04 Request PSA (PROSTATE SPECIFIC ANTIGEN) (V76.44)Indication: Screening for prostate cancer On: 6-Yls-250596:55 Request URINALYSIS, W/ MICRO (05665)Indication: Osteoarthritis, unspecified osteoarthritis type, unspecified site On: 3-Zex-966409:55 Request METABOLIC PANEL, COMPREHENSIVE (75282)Indication: Osteoarthritis, unspecified osteoarthritis type, unspecified site On: :54 Request CBC WITH MANUAL DIFF (73786)Indication: Osteoarthritis, unspecified osteoarthritis type, unspecified site On: 8-Ita-407094:54 Request LIPID PANEL (52880)Indication: Other hyperlipidemia On: 3-Zct-790174:54 Request AMANDEEP (ANTINUCLEAR ANTIBODY) (87863)Indication: Osteoarthritis, unspecified osteoarthritis type, unspecified site On: 3-Exg-937815:53 Request RHEUMATOID FACTOR-QUANT (60620)Indication: Osteoarthritis, unspecified osteoarthritis type, unspecified site On: 0-Emc-707424:53 Request C-REACTIVE PROTEIN (42841)Indication: Osteoarthritis, unspecified osteoarthritis type, unspecified site On: :53 Request SED RATE ERYTHROCYTE (99339)Indication: Osteoarthritis, unspecified osteoarthritis type, unspecified site On: 4-Wqk-564395:53 Request Planned Encounters Medical; [facility] Exam (Doctor) - On: 22-Jul-2018 13:30 [facility] Fast DO, Ana A Fast DO, Ana A Medical; ADD EST VISIT - On: 27-Jan-2019 15:30 [facility] Terrence HICKEY, Ingrid Lee Planned Procedures Flu Vaccine (Quadrivalent) On: 30-Apr-2018 Intent 29594Yf: Fast DO, Ana A Fast Comments: Lot #[id number]-L dltd, IMDose prefilled syringegiven by: HERNANDO Velez reviewed and ABN signed DO, Ana A Flu Vaccine (Quadrivalent) On: 05-Jun-2017 Intent 42099Zc: Fast DO, Ana A Fast Comments: lot: [id number]: 01/28/18ite/route: L jefe, IMamt: 0.5mlVIS and ABN signed when applicableKANG Pinto DO, Ana A PNEUM VAC ADLT/IMUMNOSPR, On: 09-Apr-2017 Intent SBC/INTRM ([id number])By: Mynor ZAMAN, Comments: lot: [id number]: 09/20/18site/route: L del/IMamt: 0.5mLVIS signed when applicableKANG Pintoa A Fast DO, Ana A ELECTROCARDIOGRAM, COMPLETE On: 09-Apr-2017 Intent (ECG) ([id number])By: Fast DO, Ana Comments: ekg showed normal sinus rhythym, normal axis, no acute st/t wave changes A Fast DO, Ana A THYROID SCAN UPTAKE ([id number])By: On: 25-Aug-2016 Intent Fast DO, Ana A Fast DO, Ana A Flu Vaccine (Quadrivalent) On: 15-May-2016 Intent 44567Vf: Fast DO, Ana A Fast Comments: Lot #:[id number] date:02/09/17mount given:0.5mlRoute: IMSite given: left dewltoidGiven by: LEANDRO Perez DO, Ana A ADMINISTRATION OF INFLUENZA On: 15-May-2016 Intent VIRUS VACCINE ([id number])By: Fast DO, Ana A Fast DO, Ana A CT - Brain/Head (IV Contrast On: 03-Apr-2016 Intent Needed)By: Jung Cai DOa A Fast DO, Ana A ELECTROCARDIOGRAM, COMPLETE On: 03-Apr-2016 Intent (ECG) ([id number])By: Ana Cai DO Comments: ekg showed normal sinus rhythym, normal axis, no acute st/t wave changes sinus surjit A Fast DO, Ana A Cartoid DopplerBy: Fast DO, On: 19-Jul-2015 Intent Ana A Mynor DO, Ana A Flu Vaccine (Quadrivalent) On: 19-Jul-2015 Intent 18419Iy: Fast DO, Ana A Fast Comments: lot [id number]: 02/10/2016site/route L jefe, IMamt 0.5mlVIS and ABN signed when applicableCheKANG oropeza DO, Ana A ADMINISTRATION OF INFLUENZA On: 19-Jul-2015 Intent VIRUS VACCINE ([id number])By: Jung Cai DOa Warren Cai DO, Ana A Aerosol Treatment ([id number])By: On: 30-Jun-2015 Intent Janice Hopper DO Comments: more a.e no wheeze -- really better Radiology - Chest- PA and On: 30-Jun-2015 Intent LatBy: Janice Hopper DO Cartoid DopplerBy: Mynor ZAMAN, On: 18-May-2014 Intent Ana Cai DO, Ana A FLU VAC, SPLIT, >3 YEARS, On: 18-May-2014 Intent INTRAMUSC ([id number])By: Mynor ZAMAN, Comments: Lot #:[id number] date:04/2016Amount given:0.5mlRoute: IMSite given: left deltoidGiven by: LEANDRO Perez DO, Ana A IMMUNIZ ADMNIN, 1 VAC, On: 18-May-2014 Intent SNGL/COMBO ([id number])By: Ana Cai DO DO, Ana A Eprescribed prescriptions On: 17-Nov-2013 Intent (G8553)By: Ana Cai DO DO, Ana A Solu- Medrol Injection, 125mg On: 05-Aug-2013 Intent ([id number])By: Ana Cai DO Comments: Lot #[id number]-[id number]-[id number] syringegiven by:HERNANDO Dixon signed Fast DO, Ana A Aerosol Treatment ([id number])By: On: 05-Aug-2013 Intent Fast DO, Ana A Fast DO, Ana A Spirometry ([id number])By: Fast DO, On: 05-Aug-2013 Intent Ana A Fast DO, Ana A Comments: good effort and curve mod obst Pulse Oximetry (54501)By: Fast On: 05-Aug-2013 Intent DO, Ana A Fast DO, Ana A Comments: 98 Radiology - Chest- PA and On: 05-Aug-2013 Intent LatBy: Fast DO, Ana A Fast DO, Ana A Eprescribed prescriptions On: 05-Aug-2013 Intent (G8553)By: Millie Christine FLU VAC, SPLIT, >3 YEARS, On: 16-Jul-2013 Intent INTRAMUSC (52051)By: Mariam, Comments: Lot #:[id number] date:mount given:0.5mlRoute: IMSite given: L dltdVIS and ABN signedGiven by: LEANDRO Perez IMMUNIZ ADMNIN, 1 VAC, On: 16-Jul-2013 Intent SNGL/COMBO ([id number])By: Amaris Becerra Eprescribed prescriptions On: 16-Jul-2013 Intent (G8553)By: Amaris Becerra EKG ([id number])By: Mariam, On: 24-Feb-2013 Intent Amaris Comments: ekg [...] SPLIT, >3 YEARS, On: 24-May-2012 Intent INTRAMUSC ([id number])By: Aime Comments: Lot #[id number]/30/13Site-left deltoidgiven by: Carlos Salomon LPN LPN, Connie IMMUNIZ ADMNIN, 1 VAC, On: 24-May-2012 Intent SNGL/COMBO ([id number])By: Julissa Salomon LPN Cartoid DopplerBy: Fast DO, On: 25-Mar-2012 Intent Ana A Fast DO, Ana A Comments: may EKG (96900)By: Mariam, On: 30-Oct-2011 Intent Amaris Comments: ekg showed normal sinus rhythym, normal axis, no acute st/t wave changes TD Injection , IM ([id number])By: On: 06-Jun-2011 Intent Amaris Becerra Comments: [facility] at [facility] FLU VAC, SPLIT, >3 YEARS, On: 06-Jun-2011 Intent INTRAMUSC (24019)By: Mariam, Comments: Lot #:[id number] date:mount given:0.5mlRoute: IMSite given:left deltGiven by: LEANDRO Perez IMMUNIZ ADMNIN, 1 VAC, On: 06-Jun-2011 Intent SNGL/COMBO (73200)By: Amaris Becerra Cartoid DopplerBy: Fast DO, On: 25-Apr-2011 Intent Ana A Fast DO, Ana A EKG ([id number])By: Fast DO, Ana On: 16-Feb-2010 Intent A Fast DO, Ana A Comments: ekg showed normal sinus rhythym, normal axis, no acute st/t wave changes Planned Medications INJECTION, METHYLPREDNISOLONE SODIUM SUCCINATE, UP TO 125 MG Ordered: 05-Aug-2013 Pending Fast DO, Ana A Fast DO, Ana A Instructions Name Dates Details Attention deficit disorder of adult : How [...] Anxiety Anxiety : Patient Instructions Indication: Anxiety [facility] : How to access health information online Indication: [facility] : How to access health [...] Instructions Indication: Anxiety Encounters Office Visit On: 15-Jul-2018 14:58 Encounter Diagnosis: [...] needs to see endo sent message to [employer] about being on stimulant with thryoid off [...] for Tdap vaccination (Renamed from Need for silflaukrk-mpgdmdd-aphvuifoj (Tdap) vaccine, adult/adolescent), Gastroesophageal reflux disease without [...] on augmentin f or ear issues from [facility] x1 week- sunday throat sore all [...] disorder (780.50) [facility]OR[facility] ELIZALDE; a guarantor
--- OUTSIDE RECORDS SUMMARY | 2018-10-30 18:43 | XMS RPT_ITS | Continuity of Care Document ---
:1960 Author Organization [facility] Address [address] [place] [address] Phone Care Team Providers Name Role Phone Ana Cai DO Unavailable Lupillo Taylor Unavailable Sin Gupta MD Unavailable Dr. Lowell Corbin Unavailable Terrence Turner Unavailable Dante Cook Unavailable Unavailable Millie Christine Unavailable Unavailable Ayla Mejia Unavailable Unavailable Amaris Becerra Unavailable Unavailable Unavailable [...] if not better call and send to housing counselor Status: Active Unspecified Diagnosis Status: Active Wheezing (R06.2, 786.07) Status: Active Medications Name Dates Details Amphetamine-Dextroamphet ER 20 MG Oral Capsule Extended Release 24 Hour uad Capsule ER 24HR 1 in am and 1 at 2pm for 0 days Quantity: 60 {Capsule} Refills: 0 Ordered:03-Apr-2018 Ingrid Ocampo MD Start : 03-Apr-2018 Active Comments:sixtyplease dispense blue capsules onlyDX: F98.8 B-COMPLEX (Oral Capsule) 1 cap qd for 0 days Refills: 0 Ordered:04-Dec-2016 Fljonah JenyanivActive Calcium 600+D Plus Minerals 600-400 MG-UNIT Oral Tablet Chewable 1 (one) Tablet Chewable qd for 0 days Quantity: 30 {Tablet} Refills: 3 Ordered:25-Feb-2016 DO, Ana AFast DO, Ana A Start : 25-Feb-2016 Active Crestor 10 MG Oral Tablet 1 (one) Tablet qd for 90 days Quantity: 90 {Tablet} Refills: 3 Ordered:25-Mar-2018 DO, Ana AFast DO, Ana A Start : 25-Mar-2018 Active DULoxetine HCl 20 MG Oral Capsule Delayed Release Particles 2 (two) Capsule DR Part qd for 0 days Quantity: 180 {Capsule} Refills: 3 Ordered:09-Apr-2017 DO, Ana AFast DO, Ana A Start : 09-Apr-2017 Active DULoxetine HCl 20 MG Oral Capsule Delayed Release Particles 2 (two) Capsule DR Part qd for 0 days Quantity: 180 {Capsule} Refills: 3 Ordered:09-Apr-2017 DO, Ana AFast DO, Ana A Start [...] AFast DO, Ana A Start : 01-Jul-2018 Active Comments:thirty Methotrexate 2.5 MG Oral Tablet 6 once weekly (2.5 MG) Active Comments:vashti Montelukast Sodium 10 MG Oral Tablet 1 (one) Tablet qd in evening for 90 days Quantity: 90 {Tablet} Refills: 3 Ordered:29-Jun-2017 Ana Cai DO, DO, Debra A Start : 29-Jun-2017 Active MULTIVITAMIN (PO [...] {Tablet} Refills: 0 Ordered:25-Feb-2016 Fast DO, Ana AFtray DO Ana A Start : 25-Feb-2016 End : 25-Feb-2016 Discontinued CHERATUSSIN AC, 100-10MG/5ML (Oral Syrup) 1-2 Teaspoon qhs prn for 0 days Quantity: 6 {Ounce} Refills: 0 Ordered:08-Nov-2015 Amaris Becerra Start : 26-Jul-2015 End : 08-Nov-2015 Discontinued Escitalopram Oxalate 20 MG Oral Tablet 1/2 Tablet qhs for 90 days Quantity: 90 {Tablet} Refills: 3 Ordered:15-May-2016 Fast DOJunga AFast DO, Ana A Start : 15-May-2016 [...] days Quantity: 90 {Tablet} Refills: 0 Ordered:15-May-2016 Ana Cai DO, DO, Ana A Start : 15-May-2016 End : 15-May-2016 Discontinued Simvastatin 20 MG Oral Tablet 1 (one) Tablet daily for 0 days Quantity: 180 {Tablet} Refills: 3 Ordered:15-May-2016 Fast DOJunga AFtray DO, Ana A Start : 15-May-2016 End [...] (E83.51, 275.41) Status: Resolved as of 21-Oct-2012 [facility] Status: Resolved as of 16-Jul-2017 [facility] Status: Inactive as of [...] for Tdap vaccination (Renamed from Need for mxiahecbxe-yelrxig-zbbstvvrm (Tdap) vaccine, adult/adolescent) (Z23, V06.1) Status: Inactive [...] Procedure Dates Details TDAP VACCINE >7 IM (96979) Date: 08-Nov-2015 Completed 08-Nov-2015 nasal septal deviation urgery Completed Tonsillectomy Completed uvuloplasty/palate surgery Completed Date Value Details 23-Oct-2016 Sleep Study Report Result: Comments: See Note; NOTES: [facility] [address] [place] [address] Polysomnography with NCPAP MR#: [id number] Acct: [id number] Name: ORACIO ELIZALDE ep #: [id number] : 1960 56 From: Terrence Turner MD [...] reference to [facility] AHI in this report is consistent with the current Hypopnea definition according to Medicare Criteria and an AASM AHI reference is consistent with the current Hypopnea definition according to the AASM criteria and is recognized by [facility] as the RDI. PROCEDURE: The study was attended continuously by a robot technician. Monitored parameters included left and right [...] calculated body mass index of 28, an [place] Sleepiness Scale score of 11/24. The patient [...] C. MASK USED DURING TITRATION: Dsouza and Mozendakel Simplus full face mask, size medium with [...] MMarine. Terrence Turner MD T: NTS JOB: [id number] CC: Terrence Turner MD 42 4210/23/16 1130 <Electronically signed by Terrence Turner MD&#62 ; Date Terrence Turner MD Co-signature (if applicable) Date Signed -Sep-2016 Thyroid Uptake Single or Mult Result: Comments: See Note; NOTES: [facility] Imaging Services [address] [place] [address] Verdana 4d Thyroid Uptake Single or Mult MR#: [id number] Acct: [id number] Name: Javon ELIZALDE Rep #: [id number] : 1960 M 56 From: Sin Brantley DO PCP: Ana Cai DO Status: REG CLI Study: Thyroid Uptake Single or Mult Date of Exam: 09/25/16 Exam# [id number] Ordering Dr: Pearce DO CLINICAL: 56-year-old male [...] at 23:21 EST Tel , Service support [phone], CC: Ana Cai DO Acid Dipper: Signed 04-Apr-2016 Brain/Head W/WO Contrast Result: Comments: See Note; NOTES: [facility] Imaging Services [address] [place] [address] Verdana 4d Brain/Head W/WO Contrast MR#: [id number] Acct: [id number] Name: BECKIE ELIZALDE Jvaon Sage Rep #: [id number] : 1960 M 56 From: Cuauhtemoc Vo MD PCP: Ana Cai DO Status: REG CLI Study: Brain/Head W/WO Contrast Date of Exam: 04/04/16 Exam# [id number] Ordering Dr: Ana Cai DO STUDY: CT [...] Cuauhtemoc Vo MD at 8:08 EDT Tel [phone], Service support [phone], CC: Ana Cai DO Acid Dipper: Signed 16-Aug-2014 Emergency Department Summary Result: Comments: See Note; NOTES: [facility] Medical Records Department [address] [place] [address] Emergency Department Summary MR#: [id number] Acct: [id number] Name: ORACIO LOPEZ Rep #: [id number] : 1960 54 From: Donn Jacobo MD PCP: Ana Cai DO Status: [facility] ER DATE OF SERVICE: 08/07/2014 CHIEF COMPLAINT: [...] given a prescription for na proxen and [place]. He will be discharged to follow up with Dr. Pierce. DISPOSITION: Discharge. DIAGNOSES: 1. Right knee effusion: 2. Inflammatory process of right knee. Donn Jacobo MD T: NTS JOB: [id number] 08/16/14 0852 <Electronically signed by Donn Jacobo MD> Date Donn Jacobo MD CC: Ana Cai DO Date Dictated: 2208 Date Transcribed: 08/07/142208 Acid Dipper: Signed 07-Aug-2014 Discharge Instruction Result: Comments: See Note; NOTES: [facility] Medical Records Department [address] [place] [address] Discharge Instruction 08/07/142205 MR#: [id number] Acct: [id number] Name: ORACIO ELIZALDE Rep #: [id number] : 1960 54 From: Donn Jacobo MD PCP: Ana Cai DO Status: REG ER ED Disposition - Plan for ED Patient: Disposition: Home Chief Complaint: Lower Ext remity Injury Discharge Problem: Effusion of left knee, 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 Call [facility] ( [phone]) or report to the closest Emergency Room. Call 911 if necessary. 08/07/142207 <Electronically signed by Donn Jacobo MD> Date Donn Donnell HICKEY Cosigner Signature (If Indicated): Date CC: Ana Cai DO 15-Jul-2014 Carotid Duplex Ultrasound Result: Comments: See Note; NOTES: [facility] Cardiovascular Services [address] [place] [address] Carotid Duplex Ultrasound 07/10/14 0909 MR#: [id number] Acct: [id number] Dudley e: ORACIO ELIZALDE Rep #: [id number] : 1960 54 From: Robin Fabian MD [...] the left vertebral artery. Procedure Carotid Duplex 98599. The exam was diagnostic. Exam performed in department. Interp retation Summary Mild (<50%) stenosis right extracranial internal carotid. Mild (<50%) stenosis left extracranial internal carotid. Flow within the vertebral arteries is antegrade michelle aterally. Ordering Physician: Ana Cai Referring Physician: Lata Valle Performed By: SAMUEL Juan 07/15/14823 Date Robin Fabian MD CC: Ana Cai DO Da te Dictated: 07/10/14908 Date Transcribed: 07/15/14823 Acid Dipper: Signed 15-Jul-2014 Carotid Duplex Ultrasound Result: Comments: See Note; NOTES: [facility] Cardiovascular Services [address] [place] [address] Carotid Duplex Ultrasound 07/10/14 0909 MR#: [id number] Acct: [id number] Dudley e: ORACIO ELIZALDE Rep #: [id number] : 1960 54 From: Robin Fabian MD Attending Dr: Ana Cai DO Status: REG CLI Ordering Dr: Ana Cai DO Date: 07/10/14 Location: [facility] Sex: M C Admitt ed: Rt. Velocities/BP [...] the left vertebral artery. Procedure Carotid Duplex 64497. The exam was diagnostic. Exam performed in department. Interp retation Summary Mild (<50%) stenosis right extracranial internal carotid. Mild (<50%) stenosis left extracranial internal carotid. Flow within the vertebral arteries is antegrade michelle aterally. Ordering Physician: Ana Cai Referring Physician: Lata Valle Performed By: SAMUEL Juan 07/15/14 0824 Date Robin Fabian MD CC: Ana Hinton te Dictated: 07/10/1409 Date Transcribed: 07/15/14823 Acid Dipper: Signed 26-Jan-2014 Knee 4 or More Views Result: Comments: See Note; NOTES: [facility] Imaging Services [address] [place] [address] Radiology Report MR#: [id number] Acct: [id number] Name: ORACIO ELIZALDE Rep #: [id number] : 1960 53 From: Cuauhtemoc Vo MD PCP: Ana Cai DO Status: REG CLI Study: Knee 4 or More Views Date of Exam: 01/26/14 Exam# [id number] Ordering Dr: Lata Valle MD [facility] DY: X-RAY - RIGHT KNEE REASON FOR [...] Cuauhtemoc Vo MD at 13:17 EDT Tel [phone], Service support [phone], RAD/Knee 4 or More Views IM PRESSION: Degenerative arthrosis. Mild synovial thickening. Electronically Signed: Cuauhtemoc Vo MD at 13:17 EDT Tel [phone], Service support [phone], CC: Ana Cai DO; Lata Valle MD Acid Dipper: Signed 26-Jan-2014 Knee 4 or More Views Result: Comments: See Note; NOTES: [facility] Imaging Services [address] [place] [address] Radiology Report MR#: [id number] Acct: [id number] Name: ORACIO ELIZALDE Rep #: [id number] : 1960 M 53 From: Cuauhtemoc Vo MD PCP: Ana Cai DO Status: REG CLI Study: Knee 4 or More Views Date of Exam: 01/26/14 Exam# [id number] Ordering Dr: Lata Valle MD ERIC DY: [...] Signed: Rosa Ambriz at 13:17 EDT Tel [phone], Service support [phone], RAD/Knee 4 or More Views IMPRESSION: Minimal synovial thickening. Electronically Sig la: Cuauhtemoc Vo MD at 13:17 EDT Tel [phone], Service support [phone], CC: Ana Cai DO; Lata Valle MD Acid Dipper: Signed 29-Aug-2013 Sleep Study Report Result: Comments: See Note; NOTES: [facility] [address] [place] [address] Polysomnography with NCPAP MR#: [id number] Acct: [id number] Name: ANDRA ELIZALDE T Rep #: [id number] : 1960 53 From: Westley Porter MD PCP: Ana Cai DO Status: REG CLI Ordering Dr.: Ana Cai DO Date: 08/21/13 Sex: M C SLEEP HISTORY: This is a CPAP titratio n study performed on this 53-year-old male with a body mass index of 28 and an [place] Sleepiness Scale score of 12. He has [...] reference to [facility] AHI in this report is consistent with the current Hypopnea definition according to Medicare Criteria and an AASM AHI refere nce is consistent with the current Hypopnea definition according to the AASM criteria. PROCEDURE: The study was attended continuously by a robot technician. Monitored parameters included left and r [...] Result: Comments: See Note; NOTES: [facility] [address] [place] [address] Polysomnography MR#: [id number] Acct: [id number] Name: ORACIO ELIZALDE Rep #: [id number] : 1960 53 From: Terrence Turner MD PCP: Ana Cai DO Status: REG CLI Ordering Dr.: Ana Cai DO Date: 08/01/13 Sex: M C REFERRING PHYSICIAN: Dr. Cai. SLEEP HISTORY: The patient is a 53-year-old gentleman with a calculated body mass index of 28 and an [place] Sleepiness Scale score of 12/24. He has [...] reference to [facility] AHI in this report is consistent with the current Hy popnea definition according to Medicare Criteria and an AASM AHI reference is consistent with the current Hypopnea definition according to the AASM criteria. PROCEDURE: The study was attended kai nuously by a robot technician. Monitored parameters included left and right [...] Result: Comments: See Note; NOTES: [facility] Imaging Services [address] [place] [address] Radiology Report MR#: [id number] Acct: [id number] Name: ORACIO ELIZALDE Chu Rep #: [id number] : 1960 M 53 From: Wesley Ramirez MD PCP: Ana Cai DO Status: [facility] CLI Study: Chest PA and Lateral Date of Exam: 08/05/13 Exam# [id number] Ordering Dr: Ana Cai DO STUDY: X-RA [...] at 13:55 EST , Service sup port [phone], CC: Ana Cai DO Acid Dipper: Signed Immunization Name Dates Details Tdap (7 [...] smoker Vital Signs Date Test Result Details [id number]-Oyz-[id number]:32 Temperature 97.7 f Comments: Method: Temporal Pulse [...] Value Details :58 CBC W/Diff, Automated Comments: [facility] [address] [place], [place], [address] Absolute Lymph 1.59 {X10_3/ul} (Normal) Range: 0.83-4.51 [...] 4.6-6.2 WBC 5.9 K/mm3 (Normal) Range: 4.4-11.0 28-Kge-418799:58 Comprehensive Metabolic Profil Comments: [facility] [address] [place], [address] GAP 9 (Normal) Range: 5-15 CO2 30.0 [...] Comments: Please note revised GLUCOSE reference range beentkatm99/02/2018. :17 CBC W/Diff, Automated Comments: [facility] [address] [place], [id number] Absolute Lymph 1.70 {X10_3/ul} (Normal) Range: 0.83-4.51 [...] Range: 4.4-11.0 :17 Comprehensive Metabolic Profil Comments: [facility] [address] [place], [address] GAP 5 (Normal) Range: 5-15 CO2 29.0 [...] A.D.A. criteria.Please note revised GLUCOSE reference range oxbwqvztx13/02/2018. 17-Dec-20176:22 CBC W/Diff, Automated Comments: [facility] [address] [place], [place], [address] ; review at 12/24 Absolute Lymph 1.33 [...] Range: 4.4-11.0 17-Dec-20176:22 Comprehensive Metabolic Profil Comments: [facility] [address] [place], [address] GAP 7 (Normal) Range: 5-15 CO2 29.0 [...] Comments: Please note revised GLUCOSE reference range spkpcvmyu28/02/2018. 17-Dec-20176:22 Lipid Profile Comments: [facility] [address] [place], [place], [address] VLDL 23 mg/dL (Normal) Range: 5-40 LDL [...] Risk 17-Dec-20176:22 PSA,Total - Annual Screen Comments: [facility] [address] [place], [place], [address] PSA,TOT SCREEN 0.85 ng/mL (Normal) Range: 0.00-4.00 Comments: This test was performed using the TPSA assay method for the[employer] chemistry system. Values obtained with differentassay methods cannot be used interchangably.When changing PSA assays in the course of monitoring apatient, additional sequential testing should be carriedout to confirm baseline values. :22 Thyroid Stim Hormone (TSH) Comments: [facility] [address] [place], [phone] TSH 1.13 {uIU/mL} (Normal) Range: 0.358-3.74 :56 CBC W/Diff, Automated Comments: [facility] [address] [place], [address] Absolute Lymph 1.48 {X10_3/ul} (Normal) Range: 0.83-4.51 [...] 4.6-6.2 WBC 6.3 K/mm3 (Normal) Range: 4.4-11.0 19-Npw-020951:56 Comprehensive Metabolic Profil Comments: [facility] [address] [place], [place], [address] GAP 6 (Normal) Range: 5-15 CO2 29.0 mmol/L (Normal) Range: 21.0-32.0 CL 107 mmol/L (Normal) Range: 98-107 K 4.0 mmol/L (Normal) Range: 3.5-5.1 NA 142 mmol/L (Normal) Range: 136-145 T BILI 0.70 mg/dL (Normal) Range: 0.20-1.00 ALT 42 U/L (Normal) Range: 16-61 Comments: Please note revised ALT reference range cupdbilnu78/28/2018. ALK P 59 U/L (Normal) Range: 45-117 [...] Comments: Please note revised GLUCOSE reference range /02/2018. 13-Tdr-95136:18 CBC W/Diff, Automated Comments: [facility] [address] [place], [place], [address] ; review 09/03 Absolute Lymph 1.62 {X10_3/ul} [...] 4.6-6.2 WBC 6.0 K/mm3 (Normal) Range: 4.4-11.0 99-Zjs-49981:18 Comprehensive Metabolic Profil Comments: [facility] [address] [place], [place], [address] GAP 6 (Normal) Range: 5-15 CO2 31.0 [...] 7-18 GLU 81 mg/dL (Normal) Range: 70-110 04-Hwk-43736:18 Lipid Profile Comments: [facility] [address] [place], [place], [address] VLDL 24 mg/dL (Normal) Range: 5-40 LDL [...] 200-240 mg/dL Borderline >240 mg/dL High Risk 77-Abr-02164:18 Thyroid Stim Hormone (TSH) Comments: [facility] [address] [place], [place], [address] TSH 0.81 {uIU/mL} (Normal) Range: 0.358-3.74 :10 CBC W/Diff, Automated Comments: [facility] [address] [place], [address] Absolute Lymph 1.62 {X10_3/ul} (Normal) [...] 4.6-6.2 WBC 7.0 K/mm3 (Normal) Range: 4.4-11.0 52-Kze-971807:10 Comprehensive Metabolic Profil Comments: [facility] [address] [place], [address] GAP 7 (Normal) Range: 5-15 CO2 [...] 7-18 GLU 90 mg/dL (Normal) Range: 70-110 78-Smy-13367:09 CBC W/Diff, Automated Comments: [facility] [address] [place], [place], [address] ; will review at upcoming appt Absolute [...] 4.6-6.2 WBC 6.0 K/mm3 (Normal) Range: 4.4-11.0 45-Qfl-53426:09 Comprehensive Metabolic Profil Comments: [facility] [address] [place], [place], [address] GAP 7 (Normal) Range: 5-15 CO2 32.0 [...] with a HCV Nucleic Acid Amplification test ([id number]).Performed at: [address] [id number] Director: Jose Francisco Coates PhD, Phone: [phone] :09 Lipid Profile Comments: [facility] [address] [place], [address] VLDL 20 mg/dL (Normal) Range: [...] Risk :09 Thyroid Stim Hormone (TSH) Comments: [facility] [address] [place], [place], [address] TSH 0.88 {uIU/mL} (Normal) Range: 0.358-3.74 :14 CBC W/Diff, Automated Comments: [facility] [address] [place], [address] Absolute Lymph 1.50 {X10_3/ul} (Normal) Range: 0.83-4.51 [...] 4.6-6.2 WBC 7.8 K/mm3 (Normal) Range: 4.4-11.0 55-Upm-567937:14 Comprehensive Metabolic Profil Comments: [facility] [address] [place], [place], [address] GAP 7 (Normal) Range: 5-15 CO2 28.0 [...] diff Comments: PATIENT NOT FASTINGPERFORMED BY: [facility] Hadyyv4272 [facility] [id number] Information: NURSE DRAW ([id number]) Immature Grans (Abs) 0.0 {x10E3/uL} (Normal) Range: [...] PANEL, COMPREHENSIVE Comments: PATIENT NOT FASTINGPERFORMED BY: [facility] [id number] ([id number]) ALT (SGPT) 52 [iU]/L (Abnormal) Range: 0-44 [...] Glucose, Serum 105 mg/dL (Abnormal) Range: 65-99 44-Swp-928475:11 CBC W/Diff, Automated Comments: DR VALLE ORDERED CMP CBCD ONLYDR VALLE ORDERED CMP CBCD [facility] [address] [place], [address] Absolute Lymph 1.15 {X10_3/ul} (Normal) Range: 0.83-4.51 [...] 4.6-6.2 WBC 7.1 K/mm3 (Normal) Range: 4.4-11.0 82-Sfv-384001:11 Comprehensive Metabolic Profil Comments: DR VALLE ORDERED CMP CBCD [facility] [address] [place], [place], [address] GAP 6 (Normal) Range: 5-15 CO2 30.0 [...] 70-110 :11 CRP Comments: DR VALLE ORDERED [facility] CBCD [facility] [address] [place], [place], [address] C-REACTIVE PROT 4.36 mg/L (Abnormal) Range: 0.0-3.0 Comments: C-Reactive Protein (CRP) provides useful information for thediagnosis, therapy and monitoring of inflammatory processesand associated diseases. For the evaluation of Relative Riskfor Cardiovascular Dise ase, a High Sensitivity CRP (HSCRP)should be ordered. :11 Free T3 Comments: DR VALLE ORDERED [facility] CBCD [facility] [address] [place], [place], [address] FREE T3 2.7 pg/mL (Normal) Range: 2.18-3.98 :11 Lipid Profile Comments: DR VALLE ORDERED [facility] CBCD [facility] [address] [place], [place], [address] VLDL 15 mg/dL (Normal) Range: 5-40 LDL [...] - Annual Screen Comments: DR VALLE ORDERED [facility] CBCD [facility] [address] [place], [address] PSA,TOT SCREEN 0.89 ng/mL (Normal) Range: 0.00-4.00 Comments: This test was performed using the TPSA assay method for [employer] chemistry system. Values obtained with differentassay methods cannot be used interchangably.When changing PSA assays in the course of monitoring apatient, additional sequential testing should be carriedout to confirm baseline values. :11 T4 Free Direct Comments: DR VALLE ORDERED CMP CBCD [facility] [address] [place], [address] T4 FREE DIRECT 1.08 ng/dL (Normal) Range: 0.76-1.46 :11 Thyroid Stim Hormone (TSH) Comments: DR VALLE ORDERED CMP CBCD [facility] [address] [place], [address] TSH 0.36 {uIU/mL} (Normal) Range: 0.358-3.74 :44 CBC W/Diff, Automated Comments: [facility] [address] [place], [address] Absolute Lymph 1.41 {X10_3/ul} (Normal) Range: 0.83-4.51 [...] 4.6-6.2 WBC 6.6 K/mm3 (Normal) Range: 4.4-11.0 12-Bof-669684:44 Comprehensive Metabolic Profil Comments: T3F T4F TSHDR.[facility]ARD [facility] [address]qeme[address] [place], [place], [address] GAP 6 (Normal) Range: 5-15 CO2 30.0 [...] 70-110 :44 Free T3 Comments: T3F T4F TSHDR.[facility] [address] [place], [place], [address] FREE T3 2.6 pg/mL (Normal) Range: 2.18-3.98 :44 T4 Free Direct Comments: T3F T4F TSH.[facility] [address] [place], [place], [address] T4 FREE DIRECT 1.04 ng/dL (Normal) Range: 0.76-1.46 56-Lms-428188:44 Thyroid Stim Hormone (TSH) Comments: T3F T4F TSHDR.[facility] [address] [place], [place], [address] TSH 0.26 {uIU/mL} (Abnormal) Range: 0.358-3.74 :13 CBC W/Diff, Automated Comments: [facility] [address] [place], [place], [address] ; apt next week Absolute Lymph 1.59 [...] Range: 4.4-11.0 18-Jul-20166:13 Comprehensive Metabolic Profil Comments: [facility] [address] [place], [place], [address] GAP 1 (Abnormal) Range: 5-15 CO2 33.0 [...] 70-110 :13 CRP, High Sensitivity Cardiac Comments: [facility] [address]rm[address] [facility] [place], [address] CRP HIGH SENS 2.19 mg/L (Normal) Comments: Low Relative Risk of CVD <1.0 mg/L Average Relative Risk of CVD 1.0 - 3.0 mg/L High Relative Risk of CVD >3.0 mg/L :13 Lipid Profile Comments: [facility] [address]ct[address] [facility] [place], [place], [address] VLDL 23 mg/dL (Normal) Range: 5-40 LDL [...] High Risk :13 Vitamin D,25 Hydroxy Comments: [facility] [address] [place], [place], [id number] Vitamin D 25-OH 31.7 ng/mL (Normal) Comments: Vitamin D 25(OH) Status Range Deficiency <20 ng/mL (50nmol/L) Insuffciency 20 - 30 ng/mL (50 - 75 nmol/L) Sufficiency 30 - 100 ng/mL (75 - 250 nmol/L) Toxicity >100 ng/mL (>250 nmol/L); ADDENDA: normal and has apt next week 42-Stx-305240:07 Free T3 Comments: [facility] [address] [place], [place], [id number] FREE T3 2.4 pg/mL (Normal) Range: 2.18-3.98 65-Kmv-100327:07 T4 Free Direct Comments: [facility] [address] [place], [place], [address] T4 FREE DIRECT 1.16 ng/dL (Normal) Range: 0.76-1.46 11-Tqp-464284:07 Thyroid Stim Hormone (TSH) Comments: [facility] [address] [place], [place], [address] TSH 0.16 {uIU/mL} (Abnormal) Range: 0.358-3.74 :20 Urine Drug Screen neg for everything (Office - Urine Drug (Normal) Screen 11 Panel) (20076) :13 CBC W/Diff, Automated Comments: LIPID IS FOR DR. Aparicio [facility] [address] [place], [place], [address] Absolute Lymph 1.31 {X10_3/ul} (Normal) Range: 0.83-4.51 [...] 4.6-6.2 WBC 7.0 K/mm3 (Normal) Range: 4.4-11.0 83-Gpi-46592:13 Comprehensive Metabolic Profil Comments: LIPID IS FOR DR. Gutierrezian [facility] [address] [place], [place], [id number] GAP 6 (Normal) Range: 5-15 CO2 29.0 [...] Profile Comments: LIPID IS FOR DR. Gutierrezian [facility] [address] [place], [address] VLDL 21 mg/dL (Normal) Range: 5-40 LDL [...] Borderline >240 mg/dL High Risk :59 TSH (44308) Comments: PATIENT NOT FASTINGPERFORMED BY: [facility]6[address] [facility] [id number] TSH 0.250 {uIU/mL} (Abnormal) Range: 0.450-4.500 32-Ehz-129812:59 CALCIUM, IONIZED (20568) Comments: PATIENT NOT FASTINGPERFORMED BY: [facility] Pfepne9243 [facility] [id number] Calcium, Ionized, Serum 5.3 mg/dL (Normal) Range: 4.5-5.6 :59 PHOSPHORUS (01469) Comments: PATIENT NOT FASTINGPERFORMED BY: [employer] [facility] Zudykx7513 [facility] [id number] Phosphorus, Serum 4.1 mg/dL (Normal) Range: 2.5-4.5 :59 PARATHORMONE (84231) Comments: PATIENT NOT FASTINGPERFORMED BY: [facility] [facility] [id number] PTH, Intact 29 pg/mL (Normal) Range: 15-65 :59 VITAMIN B-12 (CYANOCOBALAMIN) Comments: PATIENT NOT FASTINGPERFORMED BY: [facility] [facility] [id number] (95180) Vitamin B12 793 pg/mL (Normal) Range: 211-946 :59 Anti-TPO Antibody (80023) Comments: PATIENT NOT FASTINGPERFORMED BY: [facility] [facility] [id number] Thyroid Peroxidase (TPO) Ab 8 {IU/mL} (Normal) Range: 0-34 :59 T4, FREE (THYROXINE) Comments: PATIENT NOT FASTINGPERFORMED BY: [facility] [facility] [id number] Information: [id number] (34301) T4,Free(Direct) 1.44 ng/dL (Normal) Range: 0.82-1.77 :59 T3, FREE (TRIDOTHYRONINE) (73495) Comments: PATIENT NOT FASTINGPERFORMED BY: [facility] [facility] [id number] Triiodothyronine,Free,Serum 3.1 pg/mL (Normal) Range: 2.0-4.4 :13 CBC W/Diff, Automated Comments: CBCD IS FOR [facility] [address] [place], [place], [address] ; ordered by maco Absolute Lymph 0.96 [...] 4.6-6.2 WBC 6.8 K/mm3 (Normal) Range: 4.4-11.0 37-Gtr-41373:13 Comprehensive Metabolic Profil Comments: LIPID,CMP,TSH ARE FOR AND CMP AND CBCD ARE FOR ian [facility] [address] [place], [address] GAP 4 (Abnormal) Range: 5-15 CO2 31.0 [...] FOR AND CMP AND CBCD ARE FOR [facility] [address] [place] [address], [id number] VLDL 19 mg/dL (Normal) Range: 5-40 LDL [...] 200-240 mg/dL Borderline >240 mg/dL High Risk 84-Yex-02512:13 Thyroid Stim Hormone (TSH) Comments: LIPID,CMP,TSH ARE FOR AND CMP AND CBCD ARE FOR [facility] [address] [place], [address] TSH 0.61 {uIU/mL} (Normal) Range: 0.358-3.74 :22 Rapid Flu (68251 x 2) Comments: neg Influenza A Ag negative (Normal) : Jacy Osei CMP14 SPRCS (Normal) Comments: PATIENT WAS FASTINGPERFORMED BY: [facility] [id number] 17 Default Comments: A hand-written panel/profile was received from your office. Inaccordance with the [facility] Ambiguous Test Code Policy dated February2003, we have completed your order by using the closest currentlyor formerl y recognized AMA panel. We have assigned ComprehensiveMetabolic Panel (14), Test Code #927763 to this request. If thisis not the testing you wished to receive on this specimen, pleasecontact the [facility] Inquiry/Technical Services Departmentto clarify the test order. We appreciate your business. : Jacy Osei LP SPRCS (Normal) Comments: PATIENT WAS FASTINGPERFORMED BY: [employer] Nmynqv6375 [facility] [id number] 17 Default Comments: A hand-written panel/profile was received from your office. Inaccordance with the [facility] Ambiguous Test Code Policy dated February2003, we have completed your order by using the closest currentlyor formerl y recognized AMA panel. We have assigned Lipid Panel,Test Code #959079 to this request. If this is not the testing youwished to receive on this specimen, please contact the [facility] Inquiry/Techni burak Services Department to clarify the testorder. We appreciate your business. :17 Comp. Metabolic Panel (14) Comments: PATIENT WAS FASTINGPERFORMED BY: [facility] [facility] [id number] ALT (SGPT) 21 [iU]/L (Normal) Range: 0-44 [...] Lipid Panel Comments: PATIENT WAS FASTINGPERFORMED BY: [employer] [place] [id number]; non-emergent till apt LDL Cholesterol Calc 95 mg/dL (Normal) Range: 0-99 VLDL Cholesterol Burak 21 mg/dL (Normal) Range: 5-40 HDL Cholesterol 33 mg/dL (Abnormal) Comments: According to ATP-III Guidelines, HDL-C >59 mg/dL is considered anegative risk factor for CHD. Triglycerides 107 mg/dL (Normal) Range: 0-149 Cholesterol, Total 149 mg/dL (Normal) Range: 100-199 :17 Prostate-Specific Ag, Serum Comments: PATIENT WAS FASTINGPERFORMED BY: [employer] [place] [id number] Prostate Specific Ag, 1.0 ng/mL (Normal) Range: 0.0-4.0 Serum Comments: Zachary ECLIA methodology. .According to the [place] [employer], Serum PSA shoulddecrease and remain at undetectable levels after radicalprostatectomy. The AUA defines biochemical recurrence as an initialPSA value 0.2 ng/mL or greater followed by a subsequent confirmatoryPSA value 0.2 ng/mL or greater.Values obtained with d ifferent assay methods or kits cannot be usedinterchangeably. Results cannot be interpreted as absolute evidenceof the presence or absence of malignant disease. 06-Edd-668839:57 CBC W/Diff, Automated Comments: Test performed at:[facility] [address] [place], [place] [address] Absolute Lymph 1.54 {X10_3/ul} (Normal) Range: 0.83-4.51 [...] :57 Comprehensive Metabolic Profil Comments: Test performed at:[facility] Yttgqormwm[address] [facility] [place], [place] [id number] GAP 7 (Normal) Range: 5-15 CO2 29.0 [...] :58 CBC W/Diff, Automated Comments: Test performed at:[facility] [address] [place] [address] Absolute Lymph 1.35 {X10_3/ul} (Normal) [...] 4.6-6.2 WBC 6.9 K/mm3 (Normal) Range: 4.4-11.0 14-Vpt-913035:58 Comprehensive Metabolic Profil Comments: Test performed at:[facility] [address] [place], [place] [address] GAP 7 (Normal) Range: 5-15 CO2 29.0 [...] 7-18 GLU 82 mg/dL (Normal) Range: 70-110 82-Tek-94722:27 CBC W/Diff, Automated Comments: Test performed at:[facility] [address] [place], [place] [address] Absolute Lymph 1.27 {X10_3/ul} (Normal) Range: 0.83-4.51 [...] DR VALLE ORDERED CMP ABD CBCTest performed at:[facility] [address]foft[address] [facility] [place] [address] GAP 5 (Normal) Range: 5-15 CO2 30.0 [...] DR VALLE ORDERED CMP ABD CBCTest performed at:[facility] Mavwefizde[address] [facility] [place] [address] VLDL 17 mg/dL (Normal) Range: [...] 200-240 mg/dL Borderline >240 mg/dL High Risk 53-Qvn-345768:25 Crystals, Body Fluid Comments: Comments: ArthrocentesisComments: ArthrocentesisTest performed at:[facility] [address] [place] [address] PATH REV May foll (Normal) SOURCE/BF SYNOVIAL (Normal) CRYSTALS/BF Absent (Normal) 64-Nfv-462141:25 Glucose, Body Fluid Comments: Comments: ArthrocentesisTest performed at:[facility] [address] [place] [address] GLU,BF 10 mg/dL (Normal) 32-Wtz-348374:25 Protein, Body Fluid Comments: Comments: ArthrocentesisTest performed at:[facility] [address] [place] [address] PROTEIN,BF 4.0 g/dL (Normal) 27-Jmp-47092:29 CMP GAP 5 (Normal) Range: 5-15 CO2 [...] CHOL 117 mg/dL (Normal) Comments: <200 mg/dL Cgdhrvzeb101-107 mg/dL Borderline>240 mg/dL High Risk :20 PSA 1.02 ng/mL (Normal) Range: 0.00-4.00 Comments: This test was performed using the TPSA assay method for the[employer] MCI chemistry system. Values obtained with differentassay methods cannot be used interchangably.When changing PSA assays in the course of monitoring apatient, additional sequential testing should be carriedout to confirm baseline values. 85-Utz-681987:02 CBCD ALC 1.41 {X10_3/ul} (Normal) Range: 0.83-4.51 [...] 4.6-6.2 WBC 5.7 K/mm3 (Normal) Range: 4.4-11.0 29-Keb-484469:02 CMP GAP 4 (Abnormal) Range: 5-15 CO2 [...] 7-18 GLU 93 mg/dL (Normal) Range: 70-110 99-Pvu-752549:08 CBCD ALC 0.86 {X10_3/ul} (Normal) Range: 0.83-4.51 [...] 4.6-6.2 WBC 5.2 K/mm3 (Normal) Range: 4.4-11.0 05-Lzn-585651:08 CMP GAP 4 (Abnormal) Range: 5-15 CO2 [...] CHOL 109 mg/dL (Normal) Comments: <200 mg/dL Xjuqkjzmd259-710 mg/dL Borderline>240 mg/dL High Risk 17-Jul-20139:13 DANIELLE CULTURE-OTHER (37358) Comments: PATIENT NOT FASTINGPERFORMED BY: [facility] Fqtgsn2151 [facility] [id number] Information: SRC:GURWINDER [id number] Result 1 RRF (Normal) Comments: Routine respiratory kaden Upper Respiratory Culture Final report (Normal) 1-Oga-220969:27 Rapid Strep Test, Office (85705) Rapid Strep Test, Office Negative (Normal) 64-Sqp-14985:12 CMP GAP 5 (Normal) Range: 5-15 CO2 [...] CHOL 149 mg/dL (Normal) Comments: <200 mg/dL Myfzrfafs816-673 mg/dL Borderline>240 mg/dL High Risk :29 CBCD [...] CHOL 143 mg/dL (Normal) Comments: <200 mg/dL Sveudjnik697-865 mg/dL Borderline>240 mg/dL High Risk TRIG 66 [...] D deficiency has been defined by the [place] of[place]icine and an Endocrine Society practice guideline as alevel of serum 25-OH vitamin D less than 20 ng/mL (1,2).The Endocrine Society went on to further define vitamin Dinsufficiency as a level between 21 and 29 ng/mL (2).1. IOM ([place] of Medicine). 2010. Dietary reference intakes for calcium and D. Dom[place]: The National Academies Press.2. Melanie MF, Evans [place], Lora CRONIN, et al. Evaluation, treatment, and prevention of vitamin D deficiency: an Endocrine Society clinical practice guideline. JCEM. 2010; 96(7): 1911-30.Performed at: - [facility] [id number] Director: Abdi Navarrete PhD, Phone: [phone] 46-Evt-47005:25 CBCD Comments: DR CAI ORDERED CMP LIPIDDR [...] Very High > or = 500 mg/dL 3-Cxm-206546:36 CBCMD Comments: DR VALLE ORDERED CMP CBCDDR [...] Please note: Revised HEMOGLOBIN REFERENCE RANGES Reference ram effective 03/13/12.Please note: Revised HEMOGLOBIN REFERENCE RANGES Reference ramge effective 03/13/12. RBC 4.86 {M/mm3} (Normal) Range: 4.6-6.2 WBC 6.3 K/mm3 (Normal) Range: 4.4-11.0 2-Kui-133880:36 CMP Comments: DR VALLE ORDERED CMP CBCDDR [...] 7-18 GLU 93 mg/dL (Normal) Range: 70-110 4-Wmm-707446:36 LIPID Comments: DR VALLE ORDERED CMP CBCDDR [...] 200-240 mg/dL Borderline >240 mg/dL High Risk 9-Ubu-292345:36 PSA 0.99 ng/mL (Normal) Comments: DR VALLE ORDERED CMP CBCDDR FAST ORDERED CMP PSA CBCMD LIPID Range: 0.00-4.00 Comments: NEW TEST ASSAY METHOD JANUARY 01, 2012This test was performed using the TPSA assay method for theDiPeers Appsion chemistry system. Values obtained with differentassay methods cannot be used interchangably.When ch anging PSA assays in the course of monitoring apatient, additional sequential testing should be carriedout to confirm baseline values. 56-Wyj-927013:09 CBCD Comments: ORDERED LIPID CMPDR. LEONARD ORDERED [...] 4.6-6.2 WBC 5.9 K/mm3 (Normal) Range: 4.4-11.0 66-Hws-931269:09 CMP Comments: ORDERED LIPID CMPDR. LEONARD ORDERED [...] 0.8-1.3 GLU 89 mg/dL (Normal) Range: 70-110 05-Lwp-779587:09 LIPID Comments: ORDERED LIPID CMPDR. LEONARD ORDERED [...] 200-240 mg/dL Borderline >240 mg/dL High Risk 23-Bdr-520413:09 VITD 40.4 ng/mL (Normal) Comments: ORDERED LIPID CMPDRShahla VALLE ORDERED CMP CBCD VITD Range: 30.0-100.0 Comments: Vitamin D deficiency has been defined by the [place] of[place]icine and an Endocrine Society practice guideline as alevel of serum 25-OH vitamin D less than 20 ng/mL (1,2).The Endocrine Society went on to further define vitamin Dinsufficiency as a level between 21 and 29 ng/mL (2).1. IOM ([place] of [employer]). 2010. Dietary reference intakes for calcium and D. [place]: The National Academies Press.2. Melanie MF, Evans [place], Lroa CRONIN, et al. Evaluation, treatment, and prevention of vitamin D deficiency: an Endocrine Society clinical practice guideline. JCEM. 2010; 96(7): 1911-30. .Effective October 16, 2011, Vitamin D, 25 Hydroxy specimen requirements will change to serum only.Performed at: [address] [id number] Director: Mirna Gan MD, Phone: [phone] :26 CBCD Comments: DR CAI ORDERED LIPID,LIVERDR [...] PERFORMED FROM THISSPECIMEN. PHYSICIAN ORDER REQUIRED. CALL [facility] FORTHIS REFLEX TESTING. [phone] :[phone] ANEX PANEL [employer] LICENSEE AB 47 AU/mL (Normal) ANTI-COOK AB 12 AU/mL (Normal) :15 ANTI JO1 ANTI KATERIN 21 AU/mL (Normal) :15 ANTI SCL 70 ANTI-SCL 70 15 AU/mL (Normal) :15 ANTI-CCP 989432 3 {units} (Normal) Range: 0-19 Comments: Negative [...] 1.002-1.030 COLOR YELLOW (Normal) :15 HB CORE [id number] SeeNote (Normal) Comments: Result: Negative Performed at: - [facility] Buslsc[address] [place], [place] [id number] Director: Mirna Gan MD, Phone: [phone] at: - [facility] [id number] Director: Terrence Moreno MD, Phone: [phone] at: - [facility] [place], [place] [id number] Director: Viral Maya PhD, Phone: [phone] : HBsAg 6510 HB SURF AG 6510 [...] of antibody present. : HEP C AB 906361 <0.1 (Normal) Range: 0.0-0.9 Comments: Negative: < [...] SSB 18 AU/mL (Normal) :15 VIT D,25 92213 46.3 ng/mL (Normal) Range: 32.0-100.0 Comments: Recent studies consider the lower limit of 32.0 ng/mL to nicanor threshold for optimal health.Aleks [place]. J Nutr. 2004;135(2):317-22. :17 AMANDEEP DIR SEMI-QL AMANDEEP DIRECT 261 AU/mL (Abnormal) Comments: REFLEX AMANDEEP PANEL TESTING CAN BE PERFORMED FROM THISSPECIMEN. PHYSICIAN ORDER REQUIRED. CALL [facility] FORTHIS REFLEX TESTING. [phone] :[phone] ANTI-dsDNA AB 9 {IU/mL} (Normal) :17 [...] 11.6-14.6 WBC 6.0 K/mm3 (Normal) Range: 4.4-11.0 05-Fta-450307:17 COMP METABOLIC GAP 4 (Abnormal) Range: 5-15 [...] T PROT 6.6 g/dL (Normal) Range: 6.4-8.2 11-Upw-079577:17 COMPLETE UA BACTERIA 0 SEEN {/hpf} (Normal) [...] 1.0 CLARITY CLEAR (Normal) COLOR YELLOW (Normal) 27-Iib-700286:17 ESR SED RATE 1 mm/h (Normal) Range: 0-20 33-Yeb-750525:17 LIPID HDL 28 mg/dL (Abnormal) Comments: Reference [...] CHOL 191 mg/dL (Normal) Comments: <200 mg/dL Flosbghgu295-979 mg/dL Borderline>240 mg/dL High Risk 06-Kvt-634093:17 PSA, SCREEN 0.6 ng/mL (Normal) Range: 0.0-4.0 66-Grl-744681:17 RHEUMATOID FAC < 10.0 {IU/mL} (Normal) Plan [...] hyperlipidemia Planned Observations CBC with auto diff (95645)Indication: Other hyperlipidemia On: 45-Ksq-260651:14 Request METABOLIC PANEL, COMPREHENSIVE (98050)Indication: Other hyperlipidemia On: 86-Zci-945621:14 Request TSH (79815)Indication: Hyperthyroidism On: 96-Ngs-990739:04 Request METABOLIC PANEL, COMPREHENSIVE (55063)Indication: Other hyperlipidemia On: 36-Fqy-600317:04 Request LIPID PANEL (02203)Indication: Other hyperlipidemia On: 98-Iey-440574:04 Request Urine Drug Screen -Medicare (Office - Urine Drug Screen 9 Panel) (37200)Indication: Attention deficit disorder of adult On: 91-Rve-728912:46 Request Comments: appropriate results positive for amphetamine CBC W/AUTO DIFF WBC (58711)Indication: Memory loss On: :08 Request METABOLIC PANEL, COMPREHENSIVE (77127)Indication: Memory loss On: :08 Request LIPID PANEL (05820)Indication: Other hyperlipidemia On: :08 Request TSH (32788)Indication: Hyperthyroidism On: 42-Ege-572243:07 Request PSA (PROSTATE SPECIFIC ANTIGEN) (V76.44)Indication: Encounter for screening for malignant neoplasm of prostate (Renamed from Screening for prostate cancer) On: 47-Exb-254512:01 Request HEPATITIS C ANTIBODY (67410)Indication: Liver function abnormality On: 4-Ypo-254793:18 Request CBC W/AUTO DIFF WBC (01197)Indication: Liver function abnormality On: 27-Uxw-614103:00 Request TSH (10314)Indication: Hyperthyroidism On: 03-Pqc-844702:59 Request METABOLIC PANEL, COMPREHENSIVE (21159)Indication: Liver function abnormality On: 78-Ddw-914006:58 Request LIPID PANEL (75283)Indication: Other hyperlipidemia On: 71-Evp-483396:58 Request METABOLIC PANEL, COMPREHENSIVE (04520)Indication: Liver function abnormality On: 08-Owt-902673:09 Request CBC W/AUTO DIFF WBC (65250)Indication: Anxiety On: :41 Request LIPID PANEL (87705)Indication: Other hyperlipidemia On: :30 Request TSH (08590)Indication: Hyperthyroidism On: :29 Request HEPATITIS C ANTIBODY (50062)Indication: Encounter for hepatitis C virus screening test for high risk patient On: 94-Ztq-03778:44 Request CBC W/AUTO DIFF WBC (27128)Indication: Abnormal C-reactive protein On: 6-Scp-961039:16 Request METABOLIC PANEL, COMPREHENSIVE (76291)Indication: Other hyperlipidemia On: : Request LIPID PANEL (19722)Indication: Other hyperlipidemia On: :15 Request C-REACT PROT HIGH SENS(hsCRP) (96612)Indication: Abnormal C-reactive protein On: :15 Request PSA (PROSTATE SPECIFIC ANTIGEN) (V76.44)Indication: Encounter for screening for malignant neoplasm of prostate (Renamed from Screening for prostate cancer) On: :16 Request CBC with auto diff (52094)Indication: Memory loss On: :14 Request METABOLIC PANEL, COMPREHENSIVE (11685)Indication: Memory loss On: :14 Request T4, FREE (THYROXINE) (52843)Indication: Hyperthyroidism On: :14 Request T3, FREE (TRIDOTHYRONINE) (77063)Indication: Hyperthyroidism On: :14 Request C-REACT PROT HIGH SENS(hsCRP) (05630)Indication: Abnormal C-reactive protein On: 91-Oat-878221:14 Request LIPID PANEL (41200)Indication: Other hyperlipidemia On: : Request TSH (02290)Indication: Hyperthyroidism On: 56-Aos-099317:11 Request T4, FREE (THYROXINE) (80123)Indication: Hyperthyroidism On: :21 Request T3, FREE (TRIDOTHYRONINE) (52814)Indication: Hyperthyroidism On: :21 Request TSH (95561)Indication: Hyperthyroidism On: :13 Request Vitamin D Hydroxy (26290)Indication: Memory loss On: : Request CBC W/AUTO DIFF WBC (00287)Indication: Other hyperlipidemia On: : Request LIPID PANEL (91926)Indication: Other hyperlipidemia On: : Request METABOLIC PANEL, COMPREHENSIVE (29499)Indication: Other hyperlipidemia On: : Request C-REACT PROT HIGH SENS(hsCRP) (74495)Indication: Abnormal C-reactive protein On: : Request T4, FREE (THYROXINE) (76021)Indication: Abnormal TSH On: 4-Gbb-091800:16 Request T3, FREE (TRIDOTHYRONINE) (29036)Indication: Abnormal TSH On: 1-Scx-375597:16 Request TSH (02200)Indication: Abnormal TSH On: 1-Mxx-704786:16 Request CBC W/AUTO DIFF WBC (61146)Indication: Gastroesophageal reflux disease without esophagitis On: :45 Request METABOLIC PANEL, COMPREHENSIVE (45081)Indication: Other hyperlipidemia On: :45 Request LIPID PANEL (84890)Indication: Other hyperlipidemia On: :44 Request CALCIUM SERUM (97720)Indication: Hypocalcemia On: :00 Request PHOSPHORUS (84037)Indication: Hypocalcemia On: :59 Request PARATHORMONE (69748)Indication: Hypocalcemia On: :59 Request Vitamin D Hydroxy (50425)Indication: Hypocalcemia On: :59 Request TSH (85548)Indication: Anxiety On: 98-Tql-962286:38 Request METABOLIC PANEL, COMPREHENSIVE (71462)Indication: Other hyperlipidemia On: :38 Request LIPID PANEL (42425)Indication: Other hyperlipidemia On: 81-Jda-739346:33 Request BACT CULTURE ANY-ANAEROBIC (51008)Indication: Sore throat and laryngitis On: :49 Request Rapid Strep Test, Office (12755)Indication: Sore throat and laryngitis On: :48 Request Rapid Flu (53935 x 2)Indication: Fever and chills On: 65-Vko-991418:48 Request PSA (PROSTATE SPECIFIC ANTIGEN) (V76.44)Indication: Screening for prostate cancer On: :03 Request METABOLIC PANEL, COMPREHENSIVE (85851)Indication: Other hyperlipidemia On: 5-Zsn-474447:03 Request LIPID PANEL (34698)Indication: Other hyperlipidemia On: 2-Env-100943:03 Request CBC W/AUTO DIFF WBC (18979)Indication: Elevated blood-pressure reading without diagnosis of hypertension On: :40 Request METABOLIC PANEL, COMPREHENSIVE (80704)Indication: Elevated blood-pressure reading without diagnosis of hypertension On: :40 Request LIPID PANEL (42674)Indication: Other hyperlipidemia On: 1-Vxq-154260:40 Request PSA (PROSTATE SPECIFIC ANTIGEN) (V76.44)Indication: screening On: 7-Mgb-162201:31 Request METABOLIC PANEL, COMPREHENSIVE (03822)Indication: Other hyperlipidemia On: 8-Jbz-762891:30 Request LIPID PANEL (22058)Indication: Other hyperlipidemia On: 8-Aqc-352375:29 Request METABOLIC PANEL, COMPREHENSIVE (08717)Indication: Other hyperlipidemia On: 9-Swp-359107:56 Request PSA (PROSTATE SPECIFIC ANTIGEN) (34899)Indication: Screening for prostate cancer On: 2-Vti-268194:28 Request PSA (PROSTATE SPECIFIC ANTIGEN) (V76.44)Indication: Screening for prostate cancer On: :25 Request METABOLIC PANEL, COMPREHENSIVE (55568)Indication: Anxiety On: 48-Jgu-723875:25 Request LIPID PANEL (87812)Indication: Other hyperlipidemia On: 66-Gol-425256:00 Request HEPATIC FUNCTION PANEL (42649)Indication: Other hyperlipidemia On: 29-Sml-952342:00 Request METABOLIC PANEL, COMPREHENSIVE (44991)Indication: Other hyperlipidemia On: 72-Vzc-423142:32 Request LIPID PANEL (69949)Indication: Other hyperlipidemia On: :31 Request METABOLIC PANEL, COMPREHENSIVE (78679)Indication: Elevated blood-pressure reading without diagnosis of hypertension On: 07-Gum-300970:23 Request LIPID PANEL (62702)Indication: Other hyperlipidemia On: 68-Mpm-350742:23 Request CALCIUM SERUM (83280)Indication: Hypocalcemia On: 22-Uvj-397476:30 Request PARATHORMONE (53086)Indication: Hypocalcemia On: 77-Zyb-522561:30 Request PHOSPHORUS (16460)Indication: Hypocalcemia On: :29 Request TSH (32205)Indication: Hypocalcemia On: 78-Fdz-764170:29 Request Vitamin D Hydroxy (22609)Indication: Hypocalcemia On: 35-Yqk-364076:29 Request LIPID PANEL (87623)Indication: Other hyperlipidemia On: :44 Request METABOLIC PANEL, COMPREHENSIVE (32850)Indication: Other hyperlipidemia On: 80-Qdw-905803:44 Request PSA (PROSTATE SPECIFIC ANTIGEN) (V76.44)Indication: Screening for prostate cancer On: :09 Request LIPID PANEL (30267)Indication: Other hyperlipidemia On: :08 Request CBC WITH MANUAL DIFF (49967)Indication: Elevated blood-pressure reading without diagnosis of hypertension On: :08 Request METABOLIC PANEL, COMPREHENSIVE (15747)Indication: Elevated blood-pressure reading without diagnosis of hypertension On: :08 Request METABOLIC PANEL, COMPREHENSIVE (69604)Indication: Anxiety On: :46 Request LIPID PANEL (39225)Indication: Other hyperlipidemia On: :46 Request PSA (PROSTATE SPECIFIC ANTIGEN) (V76.44)Indication: Screening for prostate cancer On: :09 Request HEPATIC FUNCTION PANEL ([id number])Indication: Other hyperlipidemia On: :09 Request LIPID PANEL ([id number])Indication: Other hyperlipidemia On: : Request PSA (PROSTATE SPECIFIC ANTIGEN) (V76.44)Indication: Screening for prostate cancer On: 9-Hem-306665:11 Request HEPATIC FUNCTION PANEL ([id number])Indication: Other hyperlipidemia On: 3-Pda-963885:10 Request LIPID PANEL ([id number])Indication: Other hyperlipidemia On: 9-Bid-226808:10 Request HEPATIC FUNCTION PANEL ([id number])Indication: Other hyperlipidemia On: 94-Fym-812426:04 Request LIPID PANEL ([id number])Indication: Other hyperlipidemia On: 35-Vck-766790:04 Request PSA (PROSTATE SPECIFIC ANTIGEN) (V76.44)Indication: Screening for prostate cancer On: 5-Yvo-262108:55 Request URINALYSIS, W/ MICRO ([id number])Indication: Osteoarthritis, unspecified osteoarthritis type, unspecified site On: 4-Oeu-194388:55 Request METABOLIC PANEL, COMPREHENSIVE ([id number])Indication: Osteoarthritis, unspecified osteoarthritis type, unspecified site On: :54 Request CBC WITH MANUAL DIFF ([id number])Indication: Osteoarthritis, unspecified osteoarthritis type, unspecified site On: 7-Wus-968735:54 Request LIPID PANEL ([id number])Indication: Other hyperlipidemia On: 0-Nvk-976911:54 Request AMANDEEP (ANTINUCLEAR ANTIBODY) ([id number])Indication: Osteoarthritis, unspecified osteoarthritis type, unspecified site On: 2-Ljq-467136:53 Request RHEUMATOID FACTOR-QUANT ([id number])Indication: Osteoarthritis, unspecified osteoarthritis type, unspecified site On: :53 Request C-REACTIVE PROTEIN ([id number])Indication: Osteoarthritis, unspecified osteoarthritis type, unspecified site On: 4-Asi-364604:53 Request SED RATE ERYTHROCYTE ([id number])Indication: Osteoarthritis, unspecified osteoarthritis type, unspecified site On: :53 Request Planned Encounters Medical; [facility] Pre [facility]ness Exam (DF Nurse) - On: 02-Jul-2018 7:15 [facility] VIVIANA Hart; ADD EST VISIT - On: 15-Jul-2018 15:30 [facility] Terrence HICKEY, [facility]; [facility] Exam (Doctor) - On: 22-Jul-2018 13:30 [facility] Fast DO, Ana A Fast DO, Ana A Planned Procedures Flu Vaccine (Quadrivalent) On: 30-Apr-2018 Intent [id number]: Fast DO, Ana A Fast Comments: Lot #[id number]-L dltd, IMDose prefilled syringegiven by: HERNANDO Velez reviewed and ABN signed DO, Ana A Flu Vaccine (Quadrivalent) On: 05-Jun-2017 Intent 30155Qc: Fast DO, Ana A Fast Comments: lot: [id number]: 01/28/18ite/route: L jefe, IMamt: 0.5mlVIS and ABN signed when applicableKANG Pinto DO, Ana A PNEUM VAC ADLT/IMUMNOSPR, On: 09-Apr-2017 Intent SBC/INTRM ([id number])By: Mynor ZAMAN, Comments: lot: [id number]: 09/20/18site/route: L del/IMamt: 0.5mLVIS signed when applicableKANG Pintoa A Fast DO, Ana A ELECTROCARDIOGRAM, COMPLETE On: 09-Apr-2017 Intent (ECG) ([id number])By: Mynor DOJunga Comments: ekg showed normal sinus rhythym, normal axis, no acute st/t wave changes A Fast DO, Ana A THYROID SCAN UPTAKE ([id number])By: On: 25-Aug-2016 Intent Fast DO, Ana A Fast DO, Ana A Flu Vaccine (Quadrivalent) On: 15-May-2016 Intent 56229Ft: Fast DO, Ana A Fast Comments: Lot #:[id number] date:02/09/17mount given:0.5mlRoute: IMSite given: left dewltoidGiven by: LEANDRO Perez DO, Ana A ADMINISTRATION OF INFLUENZA On: 15-May-2016 Intent VIRUS VACCINE (G0008)By: Fast DO, Ana A Fast DO, Ana A CT - Brain/Head (IV Contrast On: 03-Apr-2016 Intent Needed)By: Fast DO, Ana A Fast DO, Ana A ELECTROCARDIOGRAM, COMPLETE On: 03-Apr-2016 Intent (ECG) ([id number])By: Fast DOJunga Comments: ekg showed normal sinus rhythym, normal axis, no acute st/t wave changes sinus surjit A Fast DO, Ana A Cartoid DopplerBy: Fast DO, On: 19-Jul-2015 Intent Ana A Fast DO, Ana A Flu Vaccine (Quadrivalent) On: 19-Jul-2015 Intent 37122In: Fast DO, Ana A Fast Comments: lot [id number]: 02/10/2016site/route L jefe, IMamt 0.5mlVIS and ABN signed when applicableChelsKANG spicer DO, Ana A ADMINISTRATION OF INFLUENZA On: 19-Jul-2015 Intent VIRUS VACCINE (G0008)By: Mynor DO, Ana A Fast DO, Ana A Aerosol Treatment (75081)By: On: 30-Jun-2015 Intent Janice Hopper DO Comments: more a.e no wheeze -- really better Radiology - Chest- PA and On: 30-Jun-2015 Intent LatBy: Janice Hopper DO Cartoid DopplerBy: Mynor DO, On: 18-May-2014 Intent Ana A Fast DO, Ana A FLU VAC, SPLIT, >3 YEARS, On: 18-May-2014 Intent INTRAMUSC (79304)By: Mynor ZAMAN, Comments: Lot #:[id number] date:04/2016Amount given:0.5mlRoute: IMSite given: left deltoidGiven by: LEANDRO Perez Fast DO, Ana A IMMUNIZ ADMNIN, 1 VAC, On: 18-May-2014 Intent SNGL/COMBO (84520)By: Fast DO, Ana A Fast DO, Ana A Eprescribed prescriptions On: 17-Nov-2013 Intent (G8553)By: Fast DO, Ana A Fast DO, Ana A Solu- Medrol Injection, 125mg On: 05-Aug-2013 Intent (J2930)By: Fast DO, Ana A Comments: Lot #[id number]-Ptqo-[id number] syringegiven by:HERNANDO Dixon signed Fast DO, Ana A Aerosol Treatment (21611)By: On: 05-Aug-2013 Intent Fast DO, Ana A Fast DO, Ana A Spirometry (57568)By: Mynor DO, On: 05-Aug-2013 Intent Ana A Fast DO, Ana A Comments: good effort and curve mod obst Pulse Oximetry (21137)By: Mynor On: 05-Aug-2013 Intent DO, Ana A Fast DO, Ana A Comments: 98 Radiology - Chest- PA and On: 05-Aug-2013 Intent LatBy: Fast DO, Ana A Fast DO, Ana A Eprescribed prescriptions On: 05-Aug-2013 Intent (G8553)By: Millie Christine FLU VAC, SPLIT, >3 YEARS, On: 16-Jul-2013 Intent INTRAMUSC (22364)By: Mariam, Comments: Lot #:[id number] date:mount given:0.5mlRoute: IMSite given: L dltdVIS and ABN signedGiven by: LEANDRO Perez IMMUNIZ ADMNIN, 1 VAC, On: 16-Jul-2013 Intent SNGL/COMBO (07970)By: Amaris Becerra Eprescribed prescriptions On: 16-Jul-2013 Intent (G8553)By: Amaris Becerra EKG (32769)By: Mariam, On: 24-Feb-2013 Intent Amaris Comments: ekg [...] SPLIT, >3 YEARS, On: 24-May-2012 Intent INTRAMUSC (13889)By: Aime Comments: Lot #[id number]/30/13Site-left deltoidgiven by: Carlos Salomon LPN LPN, Connie IMMUNIZ ADMNIN, 1 VAC, On: 24-May-2012 Intent SNGL/COMBO (27131)By: Julissa Salomon LPN Cartoid DopplerBy: Fast DO, On: 25-Mar-2012 Intent Ana A Fast DO, Ana A Comments: may EKG (65966)By: Mariam, On: 30-Oct-2011 Intent Amaris Comments: ekg showed normal sinus rhythym, normal axis, no acute st/t wave changes TD Injection , IM (37163)By: On: 06-Jun-2011 Intent Amaris Becerra Comments: 2009 at [facility] FLU VAC, SPLIT, >3 YEARS, On: 06-Jun-2011 Intent INTRAMUSC (20304)By: Mariam, Comments: Lot #:[id number] date:mount given:0.5mlRoute: IMSite given:left deltGiven by: LEANDRO Perez IMMUNIZ ADMNIN, 1 VAC, On: 06-Jun-2011 Intent SNGL/COMBO (77452)By: Amaris Becerra Cartoid DopplerBy: Fast DO, On: 25-Apr-2011 Intent Ana A Fast DO, Ana A EKG (60555)By: Fast DO, Naa On: 16-Feb-2010 Intent A Fast DO, Ana [...] needs to see endo sent message to Dr. Tariff about being on stimulant with thryoid off [...] for Tdap vaccination (Renamed from Need for wahbmjrgkw-tkknlhh-zrihdfega (Tdap) vaccine, adult/adolescent), Gastroesophageal reflux disease without [...] on augmentin f or ear issues from [facility] x1 week- sunday throat sore all [...] disorder (780.50) [facility]3]ORACIO ELIZALDE; a guarantor
--- OUTSIDE RECORDS SUMMARY | 2018-10-30 18:44 | XMS RPT_ITS ---
:1960 Author Organization OHIP Support Name Relationship Address Phone [employer] Unavailable [address] [place] [address] GLENDY ELIZALDES Unavailable [address] + [place] [address] [employer] Unavailable [address] [place] [address] ANUPAM ELIZALDELIS Unavailable [address] + [place] [address] [employer] Unavailable [address] + [place] [address] ANUPAM ELIZALDELIS Unavailable [address] + [place] [address] [employer] Unavailable [address] + [place] [address] ANUPAM ELIZALDELIS Unavailable [address] + [place] [address] [employer] Unavailable [address] [place] [address] ANUPAM ELIZALDELIS Unavailable [address] + [place] [address] [employer] Unavailable [address] + [place] [address] ANUPAM ELIZALDELIS Unavailable [address] + [place] [address] [employer] Unavailable [address] [place] [address] ANUPAM ELIZALDELIS Unavailable [address] + [place] [address] [employer] Unavailable [address] + [place] [address] ANUPAM ELIZALDELIS Unavailable [address] + [place] [address] [employer] Unavailable [address] + [place] [address] TONIO ANTHONY Unavailable [address] + [place] [address] [employer] Unavailable [address] + [place] [address] TONIO ANTHONY Unavailable [address] + [place] [address] [employer] Unavailable [address] + [place] [address] TONIO ANTHONY Unavailable [address] + [place] [address] [employer] Unavailable [address] + [place] [address] TONIO ANTHONY Unavailable [address] + [place] [address] [employer] Unavailable [address] + [place] [address] ANUPAM ELIZALDELIS Unavailable [address] + [place] [address] [employer] Unavailable [address] + [place] [address] TONIO ANTHONY Unavailable [address] + [place] [address] [employer] Unavailable [address] + [place] [address] TONIO ANTHONY Unavailable [address] + [place] [address] [employer] Unavailable [address] + [place] [address] TONIO ANTHONY Unavailable [address] + [place] [address] Care Team Providers Name Role Phone Fast DO, Ana A Attending Unavailable Fast DO, Ana A Referring Unavailable Fast DO, Ana A Consulting Unavailable WENDIE NORIEGA (OD) Attending Unavailable WENDIE NORIEGA (OD) Referring Unavailable Tyndall, Davy Attending Unavailable Fast, Ana Referring Unavailable Vellanki, Lata Attending Unavailable Vellanki, Lata Referring Unavailable Fast, Ana Primary Care Unavailable Vellanki, Lata Attending Unavailable Vellanki, Lata Referring Unavailable Fast, Ana Primary Care Unavailable Tyndall, Davy Attending Unavailable Tyndall, Davy Referring Unavailable Fast, Ana Primary Care Unavailable Tyndall, Davy Consulting Unavailable Juan Carlos, Davy Attending Unavailable Juan Carlos, Davy Referring Unavailable Fast, Ana Primary Care Unavailable Juan Carlos, Davy Attending Unavailable Fast, Ana Referring Unavailable Fast, Ana Attending Unavailable Fast, Ana Referring Unavailable Fast, Ana Primary Care Unavailable Fast, Ana Attending Unavailable Fast, Ana Referring Unavailable Fast, Ana Primary Care Unavailable Tyndall, Davy Attending Unavailable Juna Carlos, Davy Referring Unavailable Fast, Ana Primary Care Unavailable Freddie Britton Attending Unavailable Fast, Ana Referring Unavailable Fast, Ana Primary Care Unavailable Fast, Ana Consulting Unavailable Tyndall, Davy Attending Unavailable Fast, Ana Referring Unavailable Fast, Ana Attending Unavailable Fast, Ana Referring Unavailable Fast, Ana Primary Care Unavailable Vellanki, Lata Attending Unavailable Vellanki, Lata Referring Unavailable Fast, Ana Primary Care Unavailable Fast, Ana Attending Unavailable Fast, Ana Referring Unavailable Fast, Ana Primary Care Unavailable Vellanki, Lata Attending Unavailable Fast, Ana Primary Care Unavailable Fast, Ana Attending Unavailable Fast, Ana Primary Care Unavailable PROBLEMS PROBLEMS DATE TYPE CONDITION / CODE ATTENDING STATUS SOURCE 09/02/2018 Unknown K80.10 - Calculus of Davy Rangel Active [facility] gallbladder with Community chronic Hospital cholecystitis Repository without obstruction / K80.10(ICD-10) 08/09/2018 Unknown E04.2 - Nontoxic Davy Rangel Active [facility] multinodular goiter Community / E04.2(ICD-10) Hospital Repository 09/03/2018 Unknown E78.5 - Fast, Ana Active [facility] Hyperlipidemia, Community unspecified / Hospital E78.5(ICD-10) Repository 07/19/2018 Unknown L40.59 - Other VellanLata gonzalez Active [facility] psoriatic Community arthropathy / Hospital L40.59(ICD-10) Repository 07/19/2018 Unknown Z79.899 - Other long Lata Valle Active [facility] term (current) drug Community therapy / Hospital Z79.899(ICD-10) Repository 07/19/2018 Unknown L40.8 - Other VellanLata gonzalez Active [facility] psoriasis / Community L40.8(ICD-10) Hospital Repository 07/19/2018 Unknown M17.0 - Bilateral VellanLata gonzalez Active [facility] primary Community osteoarthritis of Hospital knee / M17.0(ICD-10) Repository 07/19/2018 Unknown G47.33 - Obstructive VellanLata gonzalez Active [facility] sleep apnea (adult) Community (pediatric) / Hospital G47.33(ICD-10) Repository 12/17/2017 Unknown Z12.5 - Encounter Fast, Ana Active [facility] for screening for [facility] malignant neoplasm [facility] prostate / Repository Z12.5(ICD-10) 12/17/2017 Unknown E05.90 - Fast, Ana Active [facility] Thyrotoxicosis, Community unspecified without Hospital thyrotoxic crisis or Repository storm / E05.90(ICD-10) 12/17/2017 Unknown E78.4 - Other Fast, Ana Active [facility] hyperlipidemia / Community E78.4(ICD-10) Hospital Repository PROCEDURES PROCEDURES No Procedure Records FoundRESULTS RESULTS 12 LEAD ELECTROCARDIOGRAM Observed: 09/04/2018 Status: F Source: [place] 1:59 PM [facility] REPOSITORY [facility] Cardiovascular Services [address] [place] [address] 12 Lead EKG 09/02/18 1200 MR#: [id number] Acct: [id number] Name: ORACIO ELIAZLDE Rep #: [id number] : 1960 58 From: Freddie Britton MD Attending Dr: Davy Rangel MD Status: [facility] Ordering Dr: Davy Rangel MD Date: 09/02/18 Location: [facility] [place] Sex: M C Admitted: Test Reason : PRE-OP Blood Pressure : / mmHG Vent. Rate : 063 BPM Atrial Rate : 063 BPM P-R Int : 160 ms QRS Dur : 082 ms QT Int : 400 ms P-R-T Axes : 061 001 041 degrees QTc Int : 409 ms Normal sinus rhythm Normal ECG Confirmed by REBA HICKEY, FREDDIE ([id number]), health editor YANICK KINGSTON ([id number]) on 09/04/2018 1:59:24 PM Referred By: Davy Rangel Confirmed By:FREDDIE BRITTON MD 09/04/18 1359 Date Freddie Britton MD CC: Davy Rangel MD; Ana Lowe DO Signed OPERATIVE REPORT Observed: 09/02/2018 Status: F Source: [place] 2:04 PM [facility] REPOSITORY [facility] Medical Records Department [address] [place] [address] Operative Report 09/02/18 1327 MR#: [id number] Acct: [id number] Name: ORACIO ELIZALDE Rep #: [id number] : 1960 58 From: Davy Rangel MD PCP: Ana Lowe DO Status: REG [facility] [place] Y Location: [place] [address] Problem List (1) Calculus of gallbladder with chronic cholecystitis without obstruction Status: Chronic Report of Operation Date of Procedure: 09/02/18 Pre-Operative Diagnosis: Chronic cholecystitis with cholelithiasis Post-Operative Diagnosis: Same Surgery/Procedure Performed:: Laparoscopic cholecystectomy Type of Anesthesia:: General Anesthesiologist: Jann Cortez Specimen's removed: Gallbladder Estimated Blood Loss (mL): < 50 cc Fluids Replaced: 600 cc lr Description of Procedure: Patient was brought into the operating room. Placed in the supine position. Under excellent general trach intubation abdomen was sterilely prepped and draped in usual fashion. Local was injected in for umbilically. Dissection was carried down to the fascia. The fascia grasped with a Sherita. Varies needle was placed inside the abdomen. The abdomen was insufflated to 15 torr. A 10/12 trocar was placed. Patient was placed in the head up and rotated to the left position. A subxiphoid #5 trochars placed inferior to this another #5 trocar was placed laterally a #5 trocar was placed fundus of the gallbladder was grasped retracted in cephalad direction infundibulum was grasped retracted laterally I dissected out the cystic artery then the cystic duct cystic artery was actually anterior to the cystic duct place hemoclips proximally distally and ligated the duct identified the cystic duct and placed 2 hemoclips distally and one proximally and ligated the duct delivered her gallbladder from the gallbladder bed I did have some spillage of bile but I had no spillage of stones placed a specimen specimen bag delivered through the umbilical port without difficulty reinflated the abdomen had a tear right with the falciform ligament went into the liver and I used electrocautery for good hemostasis here and then also used a more electrocautery on the liver bed to achieve good hemostasis clips look like they are in good place good hemostasis was achieved I remove the trochars under direct visualization good hemostasis was noted close the fascia the umbilical port figure stitch of 0 Vicryl skin incisions were closed with septicum stitches of 4-0 Monocryl Steri-Strips applied sterile dressings were applied and the patient tolerated the procedure well. - Admit VTE Documentation VTE Present on Admission: No VTE Mechan Device Prophylaxis: SCD's VTE Pharm Prophylaxis ordered?: No Reason prophylaxis not ordered:: Treatment Not Indicated 09/02/18 1404 <Electronically signed by Davy Rangel MD> Date Davy Rangel MD CC: Davy Rangel MD; Ana Lowe DO Signed GALLBLADDER Observed: 09/02/2018 Status: F Source: [place] 1:35 PM [facility] REPOSITORY Patient: ORACIO ELIZALDE : 1960 (58/M) Acct Num: [id number] Phys: Juan Carlos HICKEY,Davy Unit Num: [id number] Loc: [facility] [place] Specimen: [id number] Received: 09/03/18729 Spec Type: GALLBLADDE TISSUES 1 TISSUES: Gallbladder, NOS GROSS DESCRIPTION Received is one container labeled with the patient's name and designated gallbladder. The specimen consists of a gallbladder measuring 6 x 3 x 2.5 cm. The external surface is smooth and glistening. Focally, it is granular, hemorrhagic and contains cautery artifact. The lumen of the gallbladder contains yellow-green mucoid bile and one black calculus measuring 1.5 cm in greatest dimension. The mucosa is bile-stained and without any mass lesions. The gallbladder wall averages 0.2 cm in thickness and is free of mass lesions. Robotics Software Engineer sections of the gallbladder and the cystic duct are submitted in one cassette. / AM:etienne 09/03/18 TC:3 CPT: 91909 HEADER OPERATION: Laparoscopic cholecystectomy PRE-OP DIAGNOSIS: Acute cholelithiasis with cholestasis TISSUE SUBMITTED: Gallbladder MICROSCOPIC DESCRIPTION Slides are reviewed. MICROSCOPIC DIAGNOSIS Gallbladder, cholecystectomy: Chronic cholecystitis. Cholelithiasis. CE:etienne 09/04/18 Signed Crow Petersen MD <signature on file> Performed By: #### PGALL #### [facility] [address] [place], [address] DISCHARGE INSTRUCTION Observed: 09/02/2018 Status: F Source: [place] 1:30 PM [facility] REPOSITORY [facility] Medical Records Department [address] [place] [address] Instructions for Home/Discharge Instructions 09/02/18 1329 MR#: [id number] Acct: [id number] Name: ORACIO ELIZALDE Rep #: [id number] : 1960 58 From: Davy Rangel MD PCP: Ana Lowe DO Status: REG [facility] [place] Discharge Diet: Light diet - advance as tolerated Discharge Activity: May Not Drive - for 2-3 days or while taking narcotic pain medications., - - Do not drive, work heavy equipment or sign legal documents for 24 hours. May shower in (days): 1 - with the bandage in place. Additional Activity Instructions:: Pain medication may cause nausea. You should typically eat light foods as you take your pain medications. Pain medication may also cause constipation. If this is a problem for you, please discuss with your doctor. Call your doctor if your incision/area has: Continuous Slow Oozing, Sudden Increased Bleeding, Increased Pain/ Swelling, Increased Redness, Foul Smelling Discharge Call your doctor if you observe: Fever of 101 or Higher Suture Line Care: Avoid Pulling/Pushing, Avoid Pinching/Bending Additional Dressing/Incision Instructions:: Leave operative bandaids on for 2 days. When you remove dressing, leave Steri-Strips on until your follow-up appointment, or until the Steri-Strips fall off on their own. Allergies/Adverse Reactions: Allergies No Known Allergies Allergy (Verified 08/30/18 17:01) Medications to take at Discharge aspirin 81 mg tablet,delayed release 81 mg PO DAILY 08/02/18 cholecalciferol (vitamin D3) 10,000 unit capsule 10,000 unit PO DAILY 08/02/18 dextroamphetamine-amphetamine ER 20 mg 24hr capsule,extend release 20 mg PO BID cap 08/02/18 duloxetine 20 mg capsule,delayed release 40 mg PO DAILY cap 08/02/18 escitalopram 20 mg tablet 20 mg PO DAILY 08/02/18 folic acid 1 mg tablet 1 mg PO DAILY 08/02/18 lorazepam 0.5 mg tablet 0.5 mg PO QHS PRN 08/02/18 methotrexate sodium 2.5 mg tablet 17.5 mg PO QWEEK tab 08/02/18 multivitamin,pd-hzou-tmeahmvy tablet 1 tab PO DAILY 08/02/18 omega-3 fatty acids 1,000 mg capsule 1,000 mg PO DAILY 08/02/18 rosuvastatin 10 mg tablet 10 mg PO DAILY 08/02/18 Primary Care Physician: Ana Lowe DO [Primary Care Provider] - Test Results: Test results from this visit will be discussed in further detail at your follow-up appointment, if applicable. Please Follow Up With: Davy Rangel MD - Please call [phone] to schedule an appointment. When: 7 days after your surgery. 09/02/18 1330 <Electronically signed by Davy Rangel MD> Date Davy Rangel MD CC: Ana Lowe DO Signed SURGERY VISIT REPORT Observed: 09/02/2018 Status: F Source: [place] 1:01 PM [facility] REPOSITORY [facility] [address] [address] [place] [address] OFFICE VISIT Date of Service: 08/28/18 MR#: [id number] Acct: [id number] Name: ORACIO ELIZALDE Rep #: [id number] : 1960 Provider: Davy Rangel MD Age/Sex: 58/M Location: [facility] Status: Signed Intake Vital Signs08/28/18 Body Mass Index (BMI) 30.8 08/28/18 Height 5 ft 10 in 08/28/18 Weight: 215 lb 08/28/18 Body Mass Index (BMI) 30.8 Intake Visit Reasons: CONSULT GALLBLADDER Chief Complaint: gallstone Valve Mechanic Required: No Is patient in pain?: No Allergies No Known Allergies Allergy (Verified 08/30/18 17:01) Medications aspirin 81 mg tablet,delayed release 81 mg PO DAILY 08/02/18 [History Confirmed 09/02/18] cholecalciferol (vitamin D3) 10,000 unit capsule 10,000 unit PO DAILY 08/02/18 [History Confirmed 09/02/18] dextroamphetamine-amphetamine ER 20 mg 24hr capsule,extend release 20 mg PO BID cap 08/02/18 [History Confirmed 09/02/18] duloxetine 20 mg capsule,delayed release 40 mg PO DAILY cap 08/02/18 [History Confirmed 09/02/18] escitalopram 20 mg tablet 20 mg PO DAILY 08/02/18 [History Confirmed 09/02/18] folic acid 1 mg tablet 1 mg PO DAILY 08/02/18 [History Confirmed 09/02/18] lorazepam 0.5 mg tablet 0.5 mg PO QHS PRN 08/02/18 [History Confirmed 09/02/18] methotrexate sodium 2.5 mg tablet 17.5 mg PO QWEEK tab 08/02/18 [History Confirmed 09/02/18] multivitamin,gb-fnxa-ywalymog tablet 1 tab PO DAILY 08/02/18 [History Confirmed 09/02/18] omega-3 fatty acids 1,000 mg capsule 1,000 mg PO DAILY 08/02/18 [History Confirmed 09/02/18] rosuvastatin 10 mg tablet 10 mg PO DAILY 08/02/18 [History Confirmed 09/02/18] [facility] Medical History Anxiety and depression (Acute) GERD (gastroesophageal reflux disease) (Acute) Hyperlipidemia (Acute) Lupus (Acute) Psoriatic arthritis (Acute) Sleep apnea (Acute) Surgical History History of colonoscopy (Acute) History of nasal septoplasty (Acute) History of uvulopalatopharyngoplasty (Acute) Family History Mother Diabetes Heart disease Father Heart disease Brother Diabetes Daughter Asthma Lupus Social History Smoking Status: Current every day smoker HPI HPI HPI: ORACIO ELIZALDE, is a 58 M who presents to the office today for evaluation of cholelithiasis. Patient had a CT of the chest without contrast at [facility] on 08/08/2018. This showed calculus in the neck of the gallbladder measuring 1.2 cm without secondary inflammation of the gallbladder or ductal area. Patient has had occasional nausea vomiting positive bloating positive right upper quadrant abdominal pain and positive back pain that has been going off and on over the last year. Over the last several weeks and several months this is been progressively increasing in nature. He has had no fever or chills he has not recalled any vomiting or diarrhea ROS General General: Yes weight change; no appetite, fatigue, colon cancer, breast cancer or weakness HEENT HEENT: No difficulty swallowing, eye injury, eye surgery, swollen glands or hoarseness Additional Details: Lupus Endo Endocrine: No thyroid disease, diabetes mellitus, thyroid cancer, Hair loss, heat intolerance or cold intolerance Musc Musculoskeletal: Yes arthritis; no back problems, rheumatoid arthritis, gout or joint pain Additional Details: Psoriatic arthritis Cardio Cardiovascular: No murmur, pacemaker, heart disease, atrial fibrillation, high blood pressure, heart attack, heart stent, palpitations, shortness of breat with exertion or chest pain Psych Psychiatric: Yes depression and anxiety; no hearing voices Resp Respiratory: No shortness of breath, No sleep apnea, No cough, No COPD, No asthma, No emphysema, No wheezing Gastro Gastrointestinal: No abdominal pain, No nausea or vomiting, No diarrhea, No constipation, No blood in stool, Yes acid reflux, No hemorrhoids, No ulcers, No gallbladder problem, No black,tarry stools Neuro Neurologic: No weakness Exam Const General: well developed, no acute distress, well hydrated Orientation: oriented to person, oriented to place, oriented to time [facility] Head: normocephalic, atraumatic Ears: external ears normal Mouth: moist mucous membranes Eyes Sclera: sclerae normal Pupils: normal by confrontation Neck Neck: no lymphadenopathy noted Neck mass: No Thyroid: symmetrical, thyroid normal Chest Chest palpation AND inspection: normal inspection of the chest Resp Effort AND Inspection: normal respiratory effort Auscultation: clear to auscultation bilaterally Percussion: percussion normal Cardio Rate: regular rate Rhythm: regular rhythm Heart Sounds: no murmurs GI Palpation: soft, tender, no masses, no hepatosplenomegaly Auscultation: normal bowel sounds Rectal Exam: other Other: Rectal exam deferred. Extrem General: no clubbing, cyanosis or edema, normal to inspection Assessment AND Plan Problems 1. Calculus of gallbladder with chronic cholecystitis without obstruction K80.10 Plan Reviewed the anatomy with the patient and discussed the procedure: laparoscopic cholecystectomy with possible cholangiograms, possible open. Review risks including but not limited to bleeding, infection, hernia, bile leak, retained gallstones requiring another procedure ERCP- Endoscopic Retrograde Cholangiopancreatography, injury to another organ (bile ducts, common bile duct, small bowel, etc.) and conversion to an open procedure. All questions were answered. Coding Level of Care Code Off vis,est,level 3 Diagnoses Calculus of gallbladder with chronic cholecystitis without obstruction K80.10 Cholelithiasis location: gallbladder Cholecystitis acuity: chronic 09/02/18 1301 <Electronically signed by Davy Rangel MD> Date Davy Rangel MD Cosigner Signature: Date (if applicable) CC: Ana Fast DO PROTHROMBIN TIME W/INR Collected: 09/02/2018 Status: F Source: [place] 11:56 AM [facility] REPOSITORY TYPE CODE TESTS RESULT OUT OF RANGE REFERENCE UNITS LAB L300.4150 11.7-14.9 SECONDS Normal PROTIME 13.3 LAB L300.4200 Normal INR 1.0 Performed By: #### L300.3900, L300.4310, L500.3400 #### [facility] [address] [place], [place], [id number] PARTIAL THROMBOPLAST Collected: 09/02/2018 Status: F Source: [place] TIME 11:56 AM [facility] REPOSITORY TYPE CODE TESTS RESULT OUT OF RANGE REFERENCE UNITS LAB L300.4310 24.1-36.2 Seconds Normal PTT 30.0 Performed By: #### L300.3900, L300.4310, L500.3400 #### [facility] [address] [place], [address] LIVER PROFILE Collected: 09/02/2018 Status: F Source: [place] 11:56 AM [facility] REPOSITORY TYPE CODE TESTS RESULT OUT OF RANGE REFERENCE UNITS LAB L501.1500 6.4-8.2 g/dL Normal T PROT 6.4 LAB L501.1800 3.2-5.0 g/dL Normal ALB 3.4 LAB L501.1950 2.2-4.2 g/dL Normal GLOB 3.0 LAB L501.4100 15-37 U/L Normal AST 17 LAB L501.4305 45-117 U/L Normal ALK P 61 LAB L501.4405 16-61 U/L Normal ALT 29 LAB L501.4600 0.20-1.00 mg/dL Normal T BILI 0.70 LAB L501.4700 0.00-0.30 mg/dL Normal D BILI 0.18 Performed By: #### L300.3900, L300.4310, L500.3400 #### [facility] [address] [place], [place], [id number] PROGRESS Observed: 08/23/2018 Status: COMPLETED Source: [place] 4:01 PM [facility] REPOSITORY HNO ID: [id number] Author: Wendie Noriega Service: (none) Author Type: RECEIVABLE MANAGER Type: Progress Notes Filed: 08/23/2018 4:03 PM Note Text: ASSESSMENT/PLAN: 1. Vitreous floaters of both eyes - ICD9: 379.24, ICD10: H43.393 (primary diagnosis) Patient was given both written and verbal information on flashes and floaters. Patient was instructed to call the office immediately upon noticing flashes of light, increase in floaters, or changes in vision. 2. Punctate keratitis of both eyes - ICD9: 370.21, ICD10: H16.143 Continue: Systane Balance Artificial Tears, 1 drop, three times a day, both eyes. Wendie Noriega, AVIVA I have confirmed and edited as necessary the relevant ophthalmic history, review of systems, surgical history, and ophthalmological examination findings as obtained by the ophthalmic technical staff. I have seen and examined Oracio Elizalde. I have discussed the examination findings, diagnosis, and treatment options with Oracio Elizalde and/or his family. I have also reviewed and agree with the assessment and plan as stated above and agree with all its relevant components. I gave the patient the opportunity to ask questions about the findings, diagnosis, and treatment options. THYROID Observed: 08/22/2018 Status: F Source: [place] 10:49 AM [facility] Imaging Services [address] [place] [address] Thyroid MR#: [id number] Acct: [id number] Name: ORACIO ELIZALDE Rep #: [id number] : 1960 M 58 From: Cuauhtemoc Vo MD PCP: Ana Lowe DO Status: REG CLI Study: Thyroid Date of Exam: 08/22/18 Exam# [id number] Ordering Dr: Davy Rangel MD STUDY: THYROID ULTRASOUND REASON FOR EXAM: Male, 58 years old. History of left thyroid nodule. Patient was scheduled for a biopsy. TECHNIQUE: Ultrasound evaluation of the thyroid was performed with real-time and static wagner-scale imaging. COMPARISON: Comparison is made with prior ultrasound examination dated July 29, 2018. FINDINGS: LEFT LOBE: The left lobe of the thyroid gland measures 5.3 cm x 2.0 cm x 2.0 cm. There is a homogeneous echotexture. Stable 8 mm x 7 mm x 4 mm solid hypoechoic nodule in the midportion of the thyroid gland. The biopsy was not performed. US/Thyroid IMPRESSION: A millimeter by 7 mm x 4 mm well-defined hypoechoic solid nodule in the midportion of the left lobe of the thyroid gland. The scheduled biopsy was not performed. Electronically Signed: Cuauhtemoc Vo MD at 10:05 EST Tel [phone], Service support , CC: Davy Rangel MD; Ana Lowe DO Packaging Design Engineer: Signed SURGERY VISIT REPORT Observed: 08/13/2018 Status: F Source: [place] 11:16 AM [facility] REPOSITORY [facility] [address] [place] [address]. [address] [place] [address] OFFICE VISIT Date of Service: 08/09/18 MR#: [id number] Acct: [id number] Name: ORACIO ELIZALDE Rep #: [id number] : 1960 Provider: Davy Rangel MD Age/Sex: 58/M Location: [facility] Status: Signed Intake Intake Visit Reasons: US Guided Lt Thyroid Nodule Aspiration Chief Complaint: CALCIUM SCORING Valve Mechanic Required: No Is patient in pain?: No Allergies No Known Allergies Allergy (Verified 08/09/18 13:30) Medications aspirin 81 mg tablet,delayed release 81 mg PO DAILY 08/02/18 [History Confirmed 08/09/18] cholecalciferol (vitamin D3) 10,000 unit capsule 10,000 unit PO DAILY 08/02/18 [History Confirmed 08/09/18] dextroamphetamine-amphetamine ER 20 mg 24hr capsule,extend release 20 mg PO BID cap 08/02/18 [History Confirmed 08/09/18] duloxetine 20 mg capsule,delayed release 40 mg PO BID cap 08/02/18 [History Confirmed 08/09/18] escitalopram 20 mg tablet 20 mg PO DAILY 08/02/18 [History Confirmed 08/09/18] folic acid 1 mg tablet 1 mg PO DAILY 08/02/18 [History Confirmed 08/09/18] lorazepam 0.5 mg tablet 0.5 mg PO QHS PRN 08/02/18 [History Confirmed 08/09/18] methotrexate sodium 2.5 mg tablet 17.5 mg PO QWEEK tab 08/02/18 [History Confirmed 08/09/18] montelukast 10 mg tablet 10 mg PO QPM 08/02/18 [History Confirmed 08/09/18] multivitamin,kj-mjbj-hwijzycx tablet 1 tab PO DAILY 08/02/18 [History Confirmed 08/09/18] omega-3 fatty acids 1,000 mg capsule 1,000 mg PO DAILY 08/02/18 [History Confirmed 08/09/18] rosuvastatin 10 mg tablet 10 mg PO DAILY 08/02/18 [History Confirmed 08/09/18] PFSH Medical History Anxiety and depression (Acute) GERD (gastroesophageal reflux disease) (Acute) Hyperlipidemia (Acute) Lupus (Acute) Psoriatic arthritis (Acute) Sleep apnea (Acute) Surgical History History of colonoscopy (Acute) History of nasal septoplasty (Acute) History of uvulopalatopharyngoplasty (Acute) Family History Mother Diabetes Heart disease Father Heart disease Brother Diabetes Daughter Asthma Lupus Social History Smoking Status: Unknown if ever smoked HPI HPI HPI: ORACIO ELIZALDE, is a 58 M who presents to the office today for Office Procedures Fine Needle Aspiration Provider Documentation Details: I was unable to identify the nodule in question. I am going to get him scheduled in radiology with the pathologist present. There is no charge for today's visit. Procedure Time Out Time Out Informed consent given: Yes Consent signed: Yes Time out checklist: patient, procedure, site marked/identified, positioning of patient, supplies available, allergies confirmed, team agrees on procedure Time out staff in room: Yes Time out verified: Yes Time out date: 08/09/18 Time out time: 13:31 Assessment AND Plan Orders Orders: Coding Level of Care Code No Charge 08/13/18 1116 <Electronically signed by Davy Rangel MD> Date Davy Lawson Signature: Date (if applicable) CC: LIMITED CHEST CT Observed: 08/08/2018 Status: F Source: [place] W/CCTA 1:51 PM [facility] REPOSITORY [facility] Imaging Services [address] [place] [address] w/CCTA MR#: [id number] Acct: [id number] Name: ORACIO ELIZLADE Rep #: [id number] : 1960 M 58 From: Sin Cruz MD PCP: Ana Lowe DO Status: REG CLI Study: Limited Chest CT w/CCTA Date of Exam: 08/08/18 Exam# [id number] Ordering Dr: Ana Lowe DO STUDY: CT CHEST WITHOUT CONTRAST REASON FOR EXAM: Male, 58 years old. Hyperlipidemia. Calcium scoring, over read. RADIATION DOSAGE (If Supplied By Facility): CTDIvol = ( 12.2 ) mGy, DLP = ( 244 ) mGycm TECHNIQUE: Transaxial imaging was performed without the administration of intravenous contrast material. : Sagittal 2-D MPR Individualized dose optimization techniques were used for this CT. COMPARISON: None. FINDINGS: Body wall soft tissues, osseous structures, evaluated portions of the lungs, evaluated portions of the mediastinum, and upper abdomen exhibit no acute process. There is evidence of mild pancreatic atrophy. There is a radiodense calculus within the neck of the gallbladder measuring 1.3 cm without secondary inflammatory features of the gallbladder or ductal ectasia. Heart size is normal without pericardial effusion. Small foci of coronary calcification are visible in the mid to distal RCA, left main, proximal LAD, and at the origin of the circumflex coronary artery. Normal great vessels. CT/Limited Chest CT w/CCTA IMPRESSION: Coronary calcium is present. Normal coronary artery origins and branching anatomy. No other acute thoracic or upper abdominal process is evident. Cholelithiasis without secondary features of acute cholecystitis and without biliary ductal ectasia. Electronically Signed: Sin Cruz MD at 9:53 EST Tel , Service support , CC: Ana Lowe DO Packaging Design Engineer: Signed SURGERY VISIT REPORT Observed: 08/02/2018 Status: F Source: [place] 8:53 AM [facility] REPOSITORY [facility] [address] [place] [address]. [address] [place] [address] OFFICE VISIT Date of Service: 08/02/18 MR#: [id number] Acct: [id number] Name: ORACIO ELIZALDE Rep #: [id number] : 1960 Provider: Dvay Rangel MD Age/Sex: 58/M Location: [facility] Status: Signed Intake Vital Signs08/02/18 Height 5 ft 10 in 08/02/18 Weight: 215 lb 11 oz 08/02/18 Body Mass Index (BMI) 30.9 08/02/18 Blood Pressure 128/77 H Intake Visit Reasons: Thyroid Nodule US 07/29 [facility] Chief Complaint: thyroid nodule Valve Mechanic Required: No Is patient in pain?: No Allergies No Known Allergies Allergy (Verified 08/02/18 08:00) Medications aspirin 81 mg tablet,delayed release 81 mg PO DAILY 08/02/18 [History Confirmed 08/02/18] cholecalciferol (vitamin D3) 10,000 unit capsule 10,000 unit PO DAILY 08/02/18 [History Confirmed 08/02/18] dextroamphetamine-amphetamine ER 20 mg 24hr capsule,extend release 20 mg PO BID cap 08/02/18 [History Confirmed 08/02/18] duloxetine 20 mg capsule,delayed release 40 mg PO BID cap 08/02/18 [History Confirmed 08/02/18] escitalopram 20 mg tablet 20 mg PO DAILY 08/02/18 [History Confirmed 08/02/18] folic acid 1 mg tablet 1 mg PO DAILY 08/02/18 [History Confirmed 08/02/18] lorazepam 0.5 mg tablet 0.5 mg PO QHS PRN 08/02/18 [History Confirmed 08/02/18] methotrexate sodium 2.5 mg tablet 17.5 mg PO QWEEK tab 08/02/18 [History Confirmed 08/02/18] montelukast 10 mg tablet 10 mg PO QPM 08/02/18 [History Confirmed 08/02/18] multivitamin,om-jtjq-synfvxwq tablet 1 tab PO DAILY 08/02/18 [History Confirmed 08/02/18] omega-3 fatty acids 1,000 mg capsule 1,000 mg PO DAILY 08/02/18 [History Confirmed 08/02/18] rosuvastatin 10 mg tablet 10 mg PO DAILY 08/02/18 [History Confirmed 08/02/18] [facility] Medical History Anxiety and depression (Acute) GERD (gastroesophageal reflux disease) (Acute) Hyperlipidemia (Acute) Lupus (Acute) Psoriatic arthritis (Acute) Sleep apnea (Acute) Surgical History History of colonoscopy (Acute) History of nasal septoplasty (Acute) History of uvulopalatopharyngoplasty (Acute) Family History Mother Diabetes Heart disease Father Heart disease Brother Diabetes Daughter Asthma Lupus Social History Smoking Status: Unknown if ever smoked HPI HPI HPI: ORACIO ELIZALDE, is a 58 M who presents to the office today for evaluation of an abnormal thyroid ultrasound. Patient had his thyroid ultrasound completed [facility] on 07/29/2018. This showed there to be a 1.4 cm nodule in the left lobe and a 4 mm nodule in the right lobe. Patient states that he has been hyperthyroid in the past his most recent TSH which was completed on 12/17/2017 was normal at 1.13. He has not been experiencing any neck pain or discomfort he has not had any swallowing issues. Patient does have psoriatic arthritis and is currently taking methotrexate baby aspirin and fish oil. ROS General General: Yes weight change; no appetite, fatigue, colon cancer, breast cancer or weakness HEENT HEENT: No difficulty swallowing, eye injury, eye surgery, swollen glands or hoarseness Additional Details: Lupus Endo Endocrine: No thyroid disease, diabetes mellitus, thyroid cancer, Hair loss, heat intolerance or cold intolerance Musc Musculoskeletal: Yes arthritis; no back problems, rheumatoid arthritis, gout or joint pain Additional Details: Psoriatic arthritis Cardio Cardiovascular: No murmur, pacemaker, heart disease, atrial fibrillation, high blood pressure, heart attack, heart stent, palpitations, shortness of breat with exertion or chest pain Psych Psychiatric: Yes depression and anxiety; no hearing voices Resp Respiratory: No shortness of breath, No sleep apnea, No cough, No COPD, No asthma, No emphysema, No wheezing Gastro Gastrointestinal: No abdominal pain, No nausea or vomiting, No diarrhea, No constipation, No blood in stool, Yes acid reflux, No hemorrhoids, No ulcers, No gallbladder problem, No black,tarry stools Neuro Neurologic: No weakness Exam Const General: well developed, no acute distress, well hydrated Orientation: oriented to person, oriented to place, oriented to time [facility] Head: normocephalic, atraumatic Ears: external ears normal Mouth: moist mucous membranes Other: Thyroid Exam: No hard palpable nodules are identified. There is no lymphadenopathy bilaterally. Eyes Sclera: sclerae normal Pupils: normal by confrontation Neck Neck: no lymphadenopathy noted Neck mass: No Thyroid: symmetrical, thyroid normal Carotids: no bruits Lymphatic: lymphadenopathy not noted Chest Chest palpation AND inspection: normal inspection of the chest Resp Effort AND Inspection: normal respiratory effort Auscultation: clear to auscultation bilaterally Percussion: percussion normal Cardio Rate: regular rate Rhythm: regular rhythm Heart Sounds: no murmurs GI Palpation: soft, no masses, no hepatosplenomegaly, nontender Rectal Exam: other Other: Rectal exam deferred. Extrem General: no clubbing, cyanosis or edema, normal to inspection Assessment AND Plan Problems 1. Multinodular goiter (nontoxic) E04.2 Plan Plan is to perform an ultrasound-guided fine-needle aspiration of the dominant nodule on the left side of the thyroid gland. Risk benefits of the procedure were reviewed in great detail with the patient. He will be off of his methotrexate and his baby aspirin and his fish oil for 5 days prior to the procedure Medications New: Coding Level of Care Code Off vis,new,level 3 Diagnoses Multinodular goiter (nontoxic) E04.2 12/21/18 0853 <Electronically signed by Davy Rangel MD> Date Davy Rangel MD Cosigner Signature: Date (if applicable) CC: Ana Lowe DO KNEE 1 OR 2 VIEWS Observed: 07/29/2018 Status: F Source: [place] 8:32 AM [facility] REPOSITORY [facility] Imaging Services [facility] [place] [address] [place] [address] Knee 1 or 2 Views MR#: [id number] Acct: [id number] Name: ORACIO ELIZALDE Rep #: [id number] : 1960 58 From: Dioni Guerrero MD PCP: Ana Lowe DO Status: REG CLI Study: Knee 1 or 2 Views Date of Exam: 07/29/18 Exam# [id number] Ordering Dr: Ana Lowe DO STUDY: X-RAY - LEFT KNEE REASON FOR EXAM: Male, 58 years old. Pain, no known injury TECHNIQUE: 4 view(s) of the knee. COMPARISON: Previous study of 01/26/2014 FINDINGS: Normal visualized distal femur. Normal visualized proximal tibia and fibula. Normal proximal tibiofibular articulation. Normal medial femorotibial compartment. Normal lateral femorotibial compartment. Normal patellofemoral articulation. The soft tissue structures are unremarkable. RAD/Knee 1 or 2 Views IMPRESSION: Normal x-ray examination of the knee. Electronically Signed: Dioni Guerrero MD at 20:09 EST , Service support , CC: Ana Lowe DO Packaging Design Engineer: Signed KNEE 1 OR 2 VIEWS Observed: 07/29/2018 Status: F Source: [place] 8:32 AM [facility] REPOSITORY [facility] Imaging Services [address] [place] [address] Knee 1 or 2 Views MR#: [id number] Acct: [id number] Name: ORACIO ELIZALDE Rep #: [id number] : 1960 M 58 From: Dioni Guerrero MD PCP: Ana Lowe DO Status: REG CLI Study: Knee 1 or 2 Views Date of Exam: 07/29/18 Exam# [id number] Ordering Dr: Ana Lowe DO STUDY: X-RAY - RIGHT KNEE REASON FOR EXAM: Male, 58 years old. Pain, no known injury TECHNIQUE: 4 view(s) of the knee. COMPARISON: Prior study of 08/07/2014 FINDINGS: Normal visualized distal femur. Normal visualized proximal tibia and fibula. Normal proximal tibiofibular articulation. Normal medial femorotibial compartment. Normal lateral femorotibial compartment. Normal patellofemoral articulation. The soft tissue structures are unremarkable. RAD/Knee 1 or 2 Views IMPRESSION: Normal x-ray examination of the knee. Electronically Signed: iDoni Guerrero MD at 20:10 EST , Service support , CC: Ana Lowe DO Packaging Design Engineer: Signed THYROID Observed: 07/29/2018 Status: F Source: [place] 8:10 AM [facility] REPOSITORY [facility] Imaging Services [address] [place] [address] Thyroid MR#: [id number] Acct: [id number] Name: ORACIO ELIZALDE Rep #: [id number] : 1960 M 58 From: Dioni Guerrero MD PCP: Ana Lowe DO Status: REG CLI Study: Thyroid Date of Exam: 07/29/18 Exam# [id number] Ordering Dr: Ana Lowe DO STUDY: THYROID ULTRASOUND REASON FOR EXAM: Male, 58 years old. Thyromegaly TECHNIQUE: Ultrasound evaluation of the thyroid was performed with real-time and static wagner-scale imaging. COMPARISON: None. FINDINGS: RIGHT LOBE: The right lobe of the thyroid gland measures 5.8 x 2.9 x 2.2 cm. There is a homogeneous echotexture. There is a hypoechoic nodule of the upper pole measuring 4 x 4 by 3 mm. There is minimal peripheral vascularity of this nodule. LEFT LOBE: [...] EST , Service support , CC: Ana Lowe DO Packaging Design Engineer: Signed CBC W/DIFF, AUTOMATED Collected: 07/19/2018 Status: F Source: [place] 9:32 AM [facility] REPOSITORY TYPE CODE TESTS RESULT OUT OF RANGE REFERENCE UNITS LAB L100.1000 4.4-11.0 K/mm3 Normal WBC 6.9 LAB L100.1200 4.6-6.2 M/mm3 Normal RBC 5.02 LAB L100.1300 13.0-16.5 g/dl Normal HGB 16.2 LAB L100.1400 40-54 % Normal HCT 46.6 LAB L100.1500 80-94 fL Normal MCV 92.8 LAB L100.1600 27.0-32.0 pg High MCH 32.3 LAB L100.1700 32-36 g/gl Normal MCHC 34.8 LAB L100.1810 11.6-14.6 % Normal RDW CV 13.3 LAB L100.1820 35.1-43.9 fl High RDW SD 44.6 LAB L100.1900 150-450 K/mm3 Normal PLT 278 LAB L100.2000 6.2-12.0 fl Normal MPV 9.3 LAB L100.2100 47-70 % Normal NEUT% 64.0 LAB L100.2200 19-41 % Normal LY% 20.7 LAB L100.2300 0-10 % High MONO% 11.8 LAB L100.2400 0-5 % Normal EO% 2.2 LAB L100.2500 0-1 % Normal BASO% 1.0 LAB L100.2550 0.0-0.9 % Normal IM GRAN % 0.300 Result Comment: IG% - Immature Granulocytes (promyelocytes, myelocytes and metamyelocytes) > 1% indicates that a LEFT SHIFT is Present. LAB L100.2620 2.0-7.7 X10 3/uL Normal Absolute Neut 4.4 LAB L100.2720 0.83-4.51 X10 3/ul Normal Absolute Lymph 1.42 Performed By: #### L100.0100 #### [facility] [address] [place], [address] COMPREHENSIVE METABOLIC Collected: 07/19/2018 Status: F Source: [facility] 9:32 AM [facility] REPOSITORY TYPE CODE TESTS RESULT OUT OF RANGE REFERENCE UNITS LAB L501.0100 74-106 mg/dL High GLU 112 Result Comment: Fasting Glucose result from 100 to 125 mg/dL suggests IMPAIRED HOMEOSTASIS per A.D.A. criteria. Please note revised GLUCOSE reference range effective 2017. LAB L501.1000 7-18 mg/dL Normal BUN 16 LAB L501.1100 0.70-1.30 mg/dL Normal CREAT,SERUM 0.90 Result Comment: The validity of the calculated GFR AND GFRAA in patients over 70 years has not been determined. Clinical correlation is essential. LAB L501.1110 >60 mL/min Normal EST GFR 92 Result Comment: Non- GFR Calc LAB L501.1115 >60 mL/min Normal EST GFR - AA 111 Result Comment: GFR Calc LAB L501.1300 10-20 RATIO Normal BUN/CRE 17.8 LAB L501.1500 6.4-8.2 g/dL T Normal PROT 6.7 LAB L501.1800 3.2-5.0 g/dL Normal ALB 3.6 LAB L501.1950 2.2-4.2 g/dL Normal GLOB 3.1 LAB L501.2000 0.9-2.4 RATIO Normal A/G 1.2 LAB L501.2200 8.5-10.1 mg/dL CA Normal 8.6 LAB L501.4100 15-37 U/L Normal AST 26 LAB L501.4305 45-117 U/L Normal ALK P 62 LAB L501.4405 16-61 U/L Normal ALT 52 LAB L501.4600 0.20-1.00 mg/dL T Normal BILI 0.70 LAB L501.5300 136-145 mmol/L NA Normal 142 LAB L501.5600 3.5-5.1 mmol/L K Normal 4.0 LAB L501.5900 98-107 mmol/L CL Normal 107 LAB L501.6100 21.0-32.0 mmol/L Normal CO2 28.0 LAB L501.6200 5-15 Normal GAP 7 Performed By: #### L500.4050 #### [facility] [address] [place], [place], [address] CBC W/DIFF, AUTOMATED Collected: 04/22/2018 Status: F Source: [place] 3:58 PM [facility] REPOSITORY TYPE CODE TESTS RESULT OUT OF RANGE REFERENCE UNITS LAB L100.1000 4.4-11.0 K/mm3 Normal WBC 5.9 LAB L100.1200 4.6-6.2 M/mm3 Normal RBC 4.89 LAB L100.1300 13.0-16.5 g/dl Normal HGB 16.3 LAB L100.1400 40-54 % Normal HCT 45.5 LAB L100.1500 80-94 fL Normal MCV 93.0 LAB L100.1600 27.0-32.0 pg High MCH 33.3 LAB L100.1700 32-36 g/gl Normal MCHC 35.8 LAB L100.1810 11.6-14.6 % Normal RDW CV 13.1 LAB L100.1820 35.1-43.9 fl Normal RDW SD 43.3 LAB L100.1900 150-450 K/mm3 Normal PLT 305 LAB L100.2000 6.2-12.0 fl Normal MPV 9.9 LAB L100.2100 47-70 % Normal NEUT% 57.7 LAB L100.2200 19-41 % Normal LY% 27.0 LAB L100.2300 0-10 % High MONO% 11.7 LAB L100.2400 0-5 % Normal EO% 2.4 LAB L100.2500 0-1 % Normal BASO% 0.9 LAB L100.2550 0.0-0.9 % Normal IM GRAN % 0.300 Result Comment: IG% - Immature Granulocytes (promyelocytes, myelocytes and metamyelocytes) > 1% indicates that a LEFT SHIFT is Present. LAB L100.2620 2.0-7.7 X10 3/uL Normal Absolute Neut 3.4 LAB L100.2720 0.83-4.51 X10 3/ul Normal Absolute Lymph 1.59 Performed By: #### L100.0100 #### [facility] [address] [place], [place] [address]all ju[place]. [place], [place], [address] COMPREHENSIVE METABOLIC Collected: 04/22/2018 Status: F Source: [facility] 3:58 PM [facility] REPOSITORY TYPE CODE TESTS RESULT OUT OF RANGE REFERENCE UNITS LAB L501.0100 74-106 mg/dL Normal GLU 86 Result Comment: Please note revised GLUCOSE reference range effective 2017. LAB L501.1000 7-18 mg/dL Normal BUN 15 LAB L501.1100 0.70-1.30 mg/dL Normal CREAT,SERUM 1.01 Result Comment: The validity of the calculated GFR AND GFRAA in patients over 70 years has not been determined. Clinical correlation is essential. LAB L501.1110 >60 mL/min Normal EST GFR 80 Result Comment: Non- GFR Calc LAB L501.1115 >60 mL/min Normal EST GFR - AA 97 Result Comment: GFR Calc LAB L501.1300 10-20 RATIO Normal BUN/CRE 14.9 LAB L501.1500 6.4-8.2 g/dL T Normal PROT 6.9 LAB L501.1800 3.2-5.0 g/dL Normal ALB 3.7 LAB L501.1950 2.2-4.2 g/dL Normal GLOB 3.2 LAB L501.2000 0.9-2.4 RATIO Normal A/G 1.2 LAB L501.2200 8.5-10.1 mg/dL CA Normal 8.7 LAB L501.4100 15-37 U/L Normal AST 21 LAB L501.4305 45-117 U/L Normal ALK P 63 LAB L501.4405 16-61 U/L Normal ALT 35 LAB L501.4600 0.20-1.00 mg/dL T Normal BILI 0.70 LAB L501.5300 136-145 mmol/L NA Normal 143 LAB L501.5600 3.5-5.1 mmol/L K Normal 4.0 LAB L501.5900 98-107 mmol/L CL Normal 104 LAB L501.6100 21.0-32.0 mmol/L Normal CO2 30.0 LAB L501.6200 5-15 Normal GAP 9 Performed By: #### L500.4050 #### [facility] [address] [place], [place] [address]all [facility] [place], [address] CBC W/DIFF, AUTOMATED Collected: 01/24/2018 Status: F Source: [place] 6:17 AM [facility] REPOSITORY TYPE CODE TESTS RESULT OUT OF RANGE REFERENCE UNITS LAB L100.1000 4.4-11.0 K/mm3 Normal WBC 5.8 LAB L100.1200 4.6-6.2 M/mm3 Normal RBC 4.88 LAB L100.1300 13.0-16.5 g/dl Normal HGB 16.2 LAB L100.1400 40-54 % Normal HCT 45.5 LAB L100.1500 80-94 fL Normal MCV 93.2 LAB L100.1600 27.0-32.0 pg High MCH 33.2 LAB L100.1700 32-36 g/gl Normal MCHC 35.6 LAB L100.1810 11.6-14.6 % Normal RDW CV 13.1 LAB L100.1820 35.1-43.9 fl Normal RDW SD 43.6 LAB L100.1900 150-450 K/mm3 Normal PLT 268 LAB L100.2000 6.2-12.0 fl Normal MPV 9.6 LAB L100.2100 47-70 % Normal NEUT% 53.7 LAB L100.2200 19-41 % Normal LY% 29.5 LAB L100.2300 0-10 % High MONO% 11.6 LAB L100.2400 0-5 % Normal EO% 3.5 LAB L100.2500 0-1 % High BASO% 1.4 LAB L100.2550 0.0-0.9 % Normal IM GRAN % 0.300 Result Comment: IG% - Immature Granulocytes (promyelocytes, myelocytes and metamyelocytes) > 1% indicates that a LEFT SHIFT is Present. LAB L100.2620 2.0-7.7 X10 3/uL Normal Absolute Neut 3.1 LAB L100.2720 0.83-4.51 X10 3/ul Normal Absolute Lymph 1.70 Performed By: #### L100.0100 #### [facility] [address] [place], [address] COMPREHENSIVE METABOLIC Collected: 01/24/2018 Status: F Source: [facility] 6:17 AM [facility] REPOSITORY TYPE CODE TESTS RESULT OUT OF RANGE REFERENCE UNITS LAB L501.0100 74-106 mg/dL High GLU 125 Result Comment: Fasting Glucose result from 100 to 125 mg/dL suggests IMPAIRED HOMEOSTASIS per A.D.A. criteria. Please note revised GLUCOSE reference range effective 2017. LAB L501.1000 7-18 mg/dL High BUN 19 LAB L501.1100 0.70-1.30 mg/dL Normal CREAT,SERUM 1.00 Result Comment: The validity of the calculated GFR AND GFRAA in patients over 70 years has not been determined. Clinical correlation is essential. LAB L501.1110 >60 mL/min Normal EST GFR 81 Result Comment: Non- GFR Calc LAB L501.1115 >60 mL/min Normal EST GFR - AA 98 Result Comment: GFR Calc LAB L501.1300 10-20 RATIO Normal BUN/CRE 19.0 LAB L501.1500 6.4-8.2 g/dL T Normal PROT 6.5 LAB L501.1800 3.2-5.0 g/dL Normal ALB 3.5 LAB L501.1950 2.2-4.2 g/dL Normal GLOB 3.0 LAB L501.2000 0.9-2.4 RATIO Normal A/G 1.2 LAB L501.2200 8.5-10.1 mg/dL Low CA 8.4 LAB L501.4100 15-37 U/L Normal AST 19 LAB L501.4305 45-117 U/L Normal ALK P 53 LAB L501.4405 16-61 U/L Normal ALT 34 LAB L501.4600 0.20-1.00 mg/dL T Normal BILI 0.80 LAB L501.5300 136-145 mmol/L NA Normal 142 LAB L501.5600 3.5-5.1 mmol/L K Normal 4.2 LAB L501.5900 98-107 mmol/L High CL 108 LAB L501.6100 21.0-32.0 mmol/L Normal CO2 29.0 LAB L501.6200 5-15 Normal GAP 5 Performed By: #### L500.4050 #### [facility] [address] [place], [address] CBC W/DIFF, AUTOMATED Collected: 12/17/2017 Status: F Source: [place] 6:22 AM [facility] REPOSITORY TYPE CODE TESTS RESULT OUT OF RANGE REFERENCE UNITS LAB L100.1000 4.4-11.0 K/mm3 Normal WBC 5.6 LAB L100.1200 4.6-6.2 M/mm3 Normal RBC 4.77 LAB L100.1300 13.0-16.5 g/dl Normal HGB 15.3 LAB L100.1400 40-54 % Normal HCT 44.6 LAB L100.1500 80-94 fL Normal MCV 93.5 LAB L100.1600 27.0-32.0 pg High MCH 32.1 LAB L100.1700 32-36 g/gl Normal MCHC 34.3 LAB L100.1810 11.6-14.6 % Normal RDW CV 13.5 LAB L100.1820 35.1-43.9 fl High RDW SD 45.7 LAB L100.1900 150-450 K/mm3 Normal PLT 238 LAB L100.2000 6.2-12.0 fl Normal MPV 9.5 LAB L100.2100 47-70 % Normal NEUT% 50.8 LAB L100.2200 19-41 % Normal LY% 23.9 LAB L100.2300 0-10 % High MONO% 19.9 LAB L100.2400 0-5 % Normal EO% 3.9 LAB L100.2500 0-1 % High BASO% 1.1 LAB L100.2550 0.0-0.9 % Normal IM GRAN % 0.400 Result Comment: IG% - Immature Granulocytes (promyelocytes, myelocytes and metamyelocytes) > 1% indicates that a LEFT SHIFT is Present. LAB L100.2620 2.0-7.7 X10 3/uL Normal Absolute Neut 2.8 LAB L100.2720 0.83-4.51 X10 3/ul Normal Absolute Lymph 1.33 Performed By: #### L100.0100 #### [facility] [address] [place], [place], [address] COMPREHENSIVE METABOLIC Collected: 12/17/2017 Status: F Source: [facility] 6:22 AM [facility] REPOSITORY TYPE CODE TESTS RESULT OUT OF RANGE REFERENCE UNITS LAB L501.0100 74-106 mg/dL Normal GLU 86 Result Comment: Please note revised GLUCOSE reference range effective 2017. LAB L501.1000 7-18 mg/dL Normal BUN 12 LAB L501.1100 0.70-1.30 mg/dL Normal CREAT,SERUM 0.89 Result Comment: The validity of the calculated GFR AND GFRAA in patients over 70 years has not been determined. Clinical correlation is essential. LAB L501.1110 >60 mL/min Normal EST GFR 94 Result Comment: Non- GFR Calc LAB L501.1115 >60 mL/min Normal EST GFR - AA 113 Result Comment: GFR Calc LAB L501.1300 10-20 RATIO Normal BUN/CRE 13.5 LAB L501.1500 6.4-8.2 g/dL T Normal PROT 6.7 LAB L501.1800 3.2-5.0 g/dL Normal ALB 3.5 LAB L501.1950 2.2-4.2 g/dL Normal GLOB 3.2 LAB L501.2000 0.9-2.4 RATIO Normal A/G 1.1 LAB L501.2200 8.5-10.1 mg/dL CA Normal 8.5 LAB L501.4100 15-37 U/L Normal AST 24 LAB L501.4305 45-117 U/L Normal ALK P 57 LAB L501.4405 16-61 U/L Normal ALT 39 LAB L501.4600 0.20-1.00 mg/dL T Normal BILI 0.70 LAB L501.5300 136-145 mmol/L NA Normal 143 LAB L501.5600 3.5-5.1 mmol/L K Normal 3.6 LAB L501.5900 98-107 mmol/L CL Normal 107 LAB L501.6100 21.0-32.0 mmol/L Normal CO2 29.0 LAB L501.6200 5-15 Normal GAP 7 Performed By: #### L500.4050, L500.4100, L501.9520, L501.9910 #### [facility] [address] [place], [address] LIPID PROFILE Collected: 12/17/2017 Status: F Source: [place] 6:22 AM [facility] REPOSITORY TYPE CODE TESTS RESULT OUT OF RANGE REFERENCE UNITS LAB L501.4900 200 mg/dL Normal CHOL 114 Result Comment: <200 mg/dL Desirable 200-240 mg/dL Borderline >240 mg/dL High Risk LAB L501.5000 mg/dL Normal TRIG 115 Result Comment: The drugs N-Acetylcysteine and Metamizole may falsely depress this assay. Serum Triglycerides Reference Interval Normal <150 mg/dL Borderline high 150 - 199 mg/dL High 200 - 499 mg/dL Very High > or = 500 mg/dL LAB L501.6400 mg/dL Low HDL 27 Result Comment: The drugs N-Acetylcysteine and Metamizole may falsely depress this assay. Reference Range HDL <40 mg/dL Low HDL Cholesterol HDL >or= 60 mg/dL High HDL Cholesterol LAB L501.6500 0-130 mg/dL Normal LDL 64 LAB L501.6600 5-40 mg/dL Normal VLDL 23 Performed By: #### L500.4050, L500.4100, L501.9520, L501.9910 #### [facility] [address] [place], [place], [address] THYROID STIM HORMONE Collected: 12/17/2017 Status: F Source: [place] (TSH) 6:22 AM [facility] REPOSITORY TYPE CODE TESTS RESULT OUT OF RANGE REFERENCE UNITS LAB L501.9520 0.358-3.74 uIU/mL Normal TSH 1.13 Performed By: #### L500.4050, L500.4100, L501.9520, L501.9910 #### [facility] [address] [facility] [address] [place], [place], [address] PSA,TOTAL - ANNUAL Collected: 12/17/2017 Status: F Source: [place] SCREEN 6:22 AM [facility] REPOSITORY TYPE CODE TESTS RESULT OUT OF RANGE REFERENCE UNITS LAB L501.9910 0.00-4.00 ng/mL Normal PSA,TOT 0.85 SCREEN Result Comment: This test was performed using the TPSA assay method for the [employer] chemistry system. Values obtained with different assay methods cannot be used interchangably. When changing PSA assays in the course of monitoring a patient, additional sequential testing should be carried out to confirm baseline values. Performed By: #### L500.4050, L500.4100, L501.9520, L501.9910 #### [facility] [address] [place], [place], [address] CBC W/DIFF, AUTOMATED Collected: 10/25/2017 Status: F Source: [place] 3:56 PM [facility] REPOSITORY TYPE CODE TESTS RESULT OUT OF RANGE REFERENCE UNITS LAB L100.1000 4.4-11.0 K/mm3 Normal WBC 6.3 LAB L100.1200 4.6-6.2 M/mm3 Normal RBC 4.96 LAB L100.1300 13.0-16.5 g/dl Normal HGB 16.4 LAB L100.1400 40-54 % Normal HCT 46.0 LAB L100.1500 80-94 fL Normal MCV 92.7 LAB L100.1600 27.0-32.0 pg High MCH 33.1 LAB L100.1700 32-36 g/gl Normal MCHC 35.7 LAB L100.1810 11.6-14.6 % Normal RDW CV 13.5 LAB L100.1820 35.1-43.9 fl High RDW SD 44.3 LAB L100.1900 150-450 K/mm3 Normal PLT 286 LAB L100.2000 6.2-12.0 fl Normal MPV 10.0 LAB L100.2100 47-70 % Normal NEUT% 60.4 LAB L100.2200 19-41 % Normal LY% 23.5 LAB L100.2300 0-10 % High MONO% 11.7 LAB L100.2400 0-5 % Normal EO% 2.7 LAB L100.2500 0-1 % High BASO% 1.4 LAB L100.2550 0.0-0.9 % Normal IM GRAN % 0.300 Result Comment: IG% - Immature Granulocytes (promyelocytes, myelocytes and metamyelocytes) > 1% indicates that a LEFT SHIFT is Present. LAB L100.2620 2.0-7.7 X10 3/uL Normal Absolute Neut 3.8 LAB L100.2720 0.83-4.51 X10 3/ul Normal Absolute Lymph 1.48 Performed By: #### L100.0100 #### [facility] [address] [place], [address] COMPREHENSIVE METABOLIC Collected: 10/25/2017 Status: F Source: [facility] 3:56 PM [facility] REPOSITORY TYPE CODE TESTS RESULT OUT OF RANGE REFERENCE UNITS LAB L501.0100 74-106 mg/dL Normal GLU 86 Result Comment: Please note revised GLUCOSE reference range effective 2017. LAB L501.1000 7-18 mg/dL Normal BUN 14 LAB L501.1100 0.70-1.30 mg/dL Normal CREAT,SERUM 1.14 Result Comment: The validity of the calculated GFR AND GFRAA in patients over 70 years has not been determined. Clinical correlation is essential. LAB L501.1110 >60 mL/min Normal EST GFR 70 Result Comment: Non- GFR Calc LAB L501.1115 >60 mL/min Normal EST GFR - AA 85 Result Comment: GFR Calc LAB L501.1300 10-20 RATIO Normal BUN/CRE 12.3 LAB L501.1500 6.4-8.2 g/dL T Normal PROT 6.9 LAB L501.1800 3.2-5.0 g/dL Normal ALB 3.9 LAB L501.1950 2.2-4.2 g/dL Normal GLOB 3.0 LAB L501.2000 0.9-2.4 RATIO Normal A/G 1.3 LAB L501.2200 8.5-10.1 mg/dL Low CA 8.4 LAB L501.4100 15-37 U/L Normal AST 21 LAB L501.4305 45-117 U/L Normal ALK P 59 LAB L501.4405 16-61 U/L Normal ALT 42 Result Comment: Please note revised ALT reference range effective 2017. LAB L501.4600 0.20-1.00 mg/dL Normal T BILI 0.70 LAB L501.5300 136-145 mmol/L Normal NA 142 LAB L501.5600 3.5-5.1 mmol/L Normal K 4.0 LAB L501.5900 98-107 mmol/L Normal CL 107 LAB L501.6100 21.0-32.0 mmol/L Normal CO2 29.0 LAB L501.6200 5-15 Normal GAP 6 Performed By: #### L500.4050 #### [facility] [place], [address] ALLERGIES ALLERGIES DATE TYPE / CODE NAME / CODE REACTION SEVERITY SOURCE 08/30/2018 Drug No Known Unknown [facility] Allergy/416 Allergies/L19577 [facility] 952177(SNOM 0388(RXNORM) Repository ED CT) Drug NO KNOWN [facility] Class/35314 ALLERGIES Main [place] 1003(SNOMED Repository CT) ENCOUNTERS ENCOUNTERS ADMIT/DISCHARGE ACCOUNT ADMITTING ENCOUNTER LOCATION SOURCE NUMBER CLASS 09/02/2018 [id number] Ambulatory BMSBuilding:Trina AustinSegundo MS.CF.[facility] Repository 09/02/2018/09/02/19 [id number] Ambulatory [place] [address] ing:SDCRoom: Repository [facility] 08/28/2018/08/28/19 [id number] Ambulatory BMSBuilding:B [place] 19 MS.[facility] Repository 08/26/2018 [id number] Ambulatory OHIP Practices Repository 08/23/2018/08/26/19 [id number] Ambulatory [address] Repository 08/22/2018 [id number] Ambulatory [facility] HospitalBuild Hospital ing:US Repository 08/09/2018 [id number] Ambulatory BMSBuilding:B [place] MS.CF.[facility] Repository 08/09/2018/08/09/20 [id number] Ambulatory BMSBuilding:B [place] 18 MS.[facility] Repository 08/08/2018 [id number] [facility] ing[facility]CT Repository 08/02/2018/08/02/20 [id number] Ambulatory BMSBuilding:B [place] 18 MS.[facility] Repository 07/29/2018 [id number] Ambulatory [facility] HospitalBuild Hospital ing:US Repository 07/19/2018 [id number] Ambulatory [facility] HospitalBuild Hospital ing:MTLAB Repository 04/22/2018 [id number] Ambulatory [facility] Hospital[facility] Hospital ing:MTLAB Repository 03/29/2018 [id number] Ambulatory [facility] HospitalBuild Hospital ing:LAB.FUTUR Repository E 01/24/2018 [id number] Ambulatory [facility] HospitalBuild Hospital ing:LAB Repository 12/17/2017 [id number] Ambulatory [facility] HospitalBuild Hospital ing:LAB Repository 10/25/2017 [id number] Ambulatory [facility] HospitalBuild Hospital ing:MTLAB Repository 10/15/2017 [id number] Ambulatory [facility] HospitalBuild Hospital ing:[facility] Repository PAYERS PAYERS ENCOUNTER GUARANTOR PAYER SUBSCRIBER SOURCE 09/02/2018 ORACIO Sage Primary ORACIO [id number] W Insurance:MEDICAL ERICAKDOB: [facility] [id number] Number: Repository [address]Nqd: (469) [id number] [phone] (HP) Date:8533-32-61YP [address] [place] [address]EZ: 09/02/2018 Secondary NOT GIVENUNK [place] Insurance:SELF PAY [facility] Number: Effective Repository Date:2018-09-02 09/02/2018 ORACIO T Primary ORACIO T [place] [id number] W Insurance:MEDICAL MICHALAKDOB: [facility] [id number] Number: Repository [address]Iav: 330 [id number] [phone] (HP) Date:0893-55-07HN [address] [address]MT: 09/02/2018 Secondary NOT GIVENUNK [place] Insurance:SELF PAY [facility] Number: Effective Repository Date:2018-08-28 08/28/2018 ORACIO T Primary ORACIO T [place] [id number] W Insurance:MEDICAL MICHALAKDOB: [facility] [id number], [place] Number: Repository [address]Okc: 330 [id number] [phone] (HP) Date:5740-74-20BP [address] [address]HO: 08/28/2018 Secondary NOT GIVENUNK [place] Insurance:SELF PAY [facility] Number: Effective Repository Date:2018-08-28 08/26/2018 ORACIO T Primary ORACIO T OHIP [facility]ICHST[facility] LUKE'S JEROMEKDOB: Insurance:Medical MICHALAKDOB: Repository [id number] [facility] [id number] Number: [address] [place], [place] [id number] [place], [place] [address]Alc: (330) Date:5476-06-06Imdy [address]Ukx: Name:[facility] [phone] () (HP)Tel: [phone], [place] [phone] (VR) [id number]: 08/26/2018 Secondary ORACIO T OHIP Practices Insurance:Medical MICHALAKDOB: Repository [facility] [id number] Number: [address] [employer] [id number] RdWest [place], [place] Date: - [address]Aeu: (101) [id number] [phone] (HP) Name:[address] [id number]: 08/22/2018 ORACIO T Primary ORACIO T [place] [id number] W Insurance:MEDICAL MICHALAKDOB: [facility] [id number], [place] Number: Repository [address]Dik: (491) [id number] [phone] () Date:1228-06-76MB [address] [address]HY: 08/22/2018 Secondary NOT GIVENUNK [place] Insurance:SELF PAY [facility] Number: Effective Repository Date:2018-08-09 08/09/2018 ORACIO T Primary Insurance:[facility] ORACIO T [place] [id number] W PACKAGE PLANPolicy MICHALAKDOB: [facility] RDWest Number: Effective [id number] Date:2018-08-09 Repository [address]Bbs: (HP) 08/09/2018 Secondary NOT GIVENUNK [place] Insurance:SELF PAY [facility] Number: Effective Repository Date:2018-08-09 08/09/2018 ORACIO T Primary NOT GIVENUNK [place] [id number] W Insurance:SELF PAY [place] Number: Effective Repository [id number]: (079) Date:2018-08-07 [phone] (HP) 08/08/2018 ORACIO T Primary Insurance:[facility] ORACIO T [place] [id number] W PACKAGE PLANPolicy MICHALAKDOB: [facility] RDWest Number: [id number], [place] [id number] Repository [address]Zmh: (272) Date:2018-07-24 [phone] (HP) 08/08/2018 Secondary NOT GIVENUNK [place] Insurance:SELF PAY [facility] Number: Effective Repository Date:2018-07-24 08/02/2018 ORACIO T Primary ORACIO T [place] [id number] W Insurance:MEDICAL MICHALAKDOB: [facility] [id number] [place] Number: Repository [address]Xdg: 330 [id number] [phone] () Date:8950-58-59NO [address] [address]PU: 08/02/2018 Secondary NOT GIVENUNK [place] Insurance:SELF PAY [facility] Hospital Number: Effective Repository Date:2018-08-01 07/29/2018 ORACIO T Primary ORACIO T [place] [id number] W Insurance:MEDICAL MICHST. LUKE'S JEROMEKDOB: [facility] [id number] Cross Hospital, [place] Number: Repository [address]Pbi: 330 [id number] [phone] () Date:0872-70-56AW [address] [address]ZR: 07/29/2018 Secondary NOT GIVENUNK [place] Insurance:SELF PAY [facility] Number: Effective Repository Date:2018-07-22 07/19/2018 ORACIO T Primary ORACIO T [place] [id number] W Insurance:MEDICAL MICHALAKDOB: [facility] [id number] Cross Hospital, [place] Number: Repository [address]Pze: 330 [id number] [phone] () Date:4522-56-39MX [address] [address]NI: 07/19/2018 Secondary NOT GIVENUNK [place] Insurance:SELF PAY [facility] Number: Effective Repository Date:2018-07-19 04/22/2018 ORACIO T Primary ORACIO T [place] [id number] W Insurance:MEDICAL MICHALAKDOB: [facility] [id number] Cross Hospital[place] Number: Repository [address]Peo: 330 [id number] [phone] (HP) Date:8250-09-27SQ [address] [place] [address]UH: 04/22/2018 Secondary NOT GIVENUNK [place] Insurance:SELF PAY [facility] Effective Repository Date:2018-04-22 03/29/2018 ORACIO T Primary ORACIO T [place] [id number] W Insurance:MEDICAL MICHALAKDOB: [facility] [id number] County General Hospital [place] Number: Repository [address]Que: 330 [id number] [phone] (HP) Date:3689-93-28JH [address] [place] [address]TT: 03/29/2018 Secondary NOT GIVENUNK [place] Insurance:SELF PAY [facility] Hospital Number: Effective Repository Date:2018-03-29 01/24/2018 Oracio T Primary Oracio T [place] [id number] W Insurance:MEDICAL MichalakDOB: [facility] [id number] County General Hospital [place] Number: Repository [address]Jhp: 330 [id number] [phone] (HP) Date:6551-26-74GD [address] [address]WR: 01/24/2018 Secondary NOT GIVENUNK [place] Insurance:SELF PAY [facility] Hospital Number: Effective Repository Date:2018-01-24 12/17/2017 Oracio T Primary Oracio T [place] [id number] W Insurance:MEDICAL [facility] HospitalkD[facility]: [facility] [id number] County General Hospital [place] Number: Repository [address]Eqc: 330 [id number] [phone] (HP) Date:6804-39-30QW [address] [place] [address]MK: 12/17/2017 Secondary NOT GIVENUNK [place] Insurance:SELF PAY [facility] Hospital Number: Effective Repository Date:2017-12-17 10/25/2017 Oracio T Primary Oracio T [place] [id number] W Insurance:MEDICAL EricakDOB: [facility] [id number], [place] Number: Repository [address]Tfk: ([phone]) [id number] [phone] (HP) Date:9301-04-90NK [address] [place] [address]YJ: 10/25/2017 Secondary NOT GIVENUNK [place] Insurance:SELF PAY [facility] Number: Effective Repository Date:2017-10-25 10/15/2017 Oracio T Primary NOT GIVENUNK [place] [id number] W Insurance:SELF PAY [place] Number: Effective Repository [address]Dpo: 330) Date:2017-09-04 [phone] ()
== END ==
PROVIDERS: Family Provider Internal Medicine; PCP Internal Medicine; Referring Provider Internal Medicine; Visit Provider Internal Medicine
DX: E01.0 Iodine-deficiency related diffuse (endemic) goiter (principal); M25.561 Pain in right knee; M25.562 Pain in left knee
CPT/HCPCS: 73560; 76536

== ENCOUNTER → 2018-08-08 12:52 | Outpatient (CLI) | payer SELFPAY ==
[2018-08-02 07:59] VITALS: BMI 30.9
--- NOTE | 2018-08-08 13:01 | CT_ITS ---
STUDY: CT CHEST WITHOUT CONTRAST REASON FOR EXAM: Male, 58 years old. Hyperlipidemia. Calcium scoring, over read. RADIATION DOSAGE (If Supplied By Facility): CTDIvol = ( 12.2 ) mGy, DLP = ( 244 ) mGycm TECHNIQUE: Transaxial imaging was performed without the administration of intravenous contrast material. : Sagittal 2-D MPR Individualized dose optimization techniques were used for this CT. COMPARISON: None. FINDINGS: Body wall soft tissues, osseous structures, evaluated portions of the lungs, evaluated portions of the mediastinum, and upper abdomen exhibit no acute process. There is evidence of mild pancreatic atrophy. There is a radiodense calculus within the neck of the gallbladder measuring 1.3 cm without secondary inflammatory features of the gallbladder or ductal ectasia. Heart size is normal without pericardial effusion. Small foci of coronary calcification are visible in the mid to distal RCA, left main, proximal LAD, and at the origin of the circumflex coronary artery. Normal great vessels. CT/Limited Chest CT w/CCTA IMPRESSION: Coronary calcium is present. Normal coronary artery origins and branching anatomy. No other acute thoracic or upper abdominal process is evident. Cholelithiasis without secondary features of acute cholecystitis and without biliary ductal ectasia. Electronically Signed: Sin Cruz MD at 9:53 EST Tel , Service support ,
[2018-08-08 13:11] VITALS: BP 125/72; PULSE 56; RESP 16; O2SAT 98; BMI 30.8
--- NOTE | 2018-08-09 20:24 | CA.SCORE ---
Calcium Scoring Date of Study:: 08/09/18 Coronary Calcium Scoring: Calcium score: 91.4 Conclusion: Calcium score: 91.4 Results: The patient underwent high-resolution CT imaging of the chest on 08/08/2018. The coronary arteries were analyzed for the presence and extent of coronary calcification using coronary calcium quantification software. The patient was reported as tolerating the procedure well with no obvious adverse events. The coronary calcium score was reported at 91.4. According to pre-published reference tables a coronary calcium score at this level would be indicative of mild plaque burden and the likelihood of minimal to mild coronary artery stenosis. Impression: Seen score: 91.4 This note was generated using a voice recognition system and there may be incorrect words, spelling or punctuation that were not noted when reviewing the office note prior to saving.
== END ==
PROVIDERS: Family Provider Internal Medicine; PCP Internal Medicine; Referring Provider Internal Medicine; Visit Provider Internal Medicine
DX: E78.5 Hyperlipidemia, unspecified (principal); K80.20 Calculus of gallbladder without cholecystitis without obstruction
CPT/HCPCS: 75571; 76380

== ENCOUNTER → 2018-08-22 10:44 | Outpatient (CLI) | payer OTHER, SELFPAY ==
[2018-08-08 13:11] VITALS: BMI 30.8
--- NOTE | 2018-08-22 10:49 | US_ITS ---
STUDY: THYROID ULTRASOUND REASON FOR EXAM: Male, 58 years old. History of left thyroid nodule. Patient was scheduled for a biopsy. TECHNIQUE: Ultrasound evaluation of the thyroid was performed with real-time and static wagner-scale imaging. COMPARISON: Comparison is made with prior ultrasound examination dated July 29, 2018. FINDINGS: LEFT LOBE: The left lobe of the thyroid gland measures 5.3 cm x 2.0 cm x 2.0 cm. There is a homogeneous echotexture. Stable 8 mm x 7 mm x 4 mm solid hypoechoic nodule in the midportion of the thyroid gland. The biopsy was not performed. US/Thyroid IMPRESSION: A millimeter by 7 mm x 4 mm well-defined hypoechoic solid nodule in the midportion of the left lobe of the thyroid gland. The scheduled biopsy was not performed. Electronically Signed: Cuauhtemoc Vo MD at 10:05 EST Tel [phone], Service support ,
== END ==
PROVIDERS: Family Provider Internal Medicine; PCP Internal Medicine; Referring Provider Surgery; Visit Provider Surgery
DX: E04.2 Nontoxic multinodular goiter (principal)
CPT/HCPCS: 76536

== ENCOUNTER 2018-09-02 11:38 | Day surgery (SDC) | payer OTHER, SELFPAY ==
[2018-08-28 14:58] VITALS: BMI 30.8
[2018-09-02] VITALS (9 sets, daily range): BP systolic 112–173; BP diastolic 69–105; PULSE 63–74; RESP 12–18; TEMP 36.4–36.9; O2SAT 91–97; BMI 31.4
--- NOTE | 2018-09-02 11:51 | EKG12_ITS ---
Test Reason : PRE-OP Blood Pressure : / mmHG Vent. Rate : 063 BPM Atrial Rate : 063 BPM P-R Int : 160 ms QRS Dur : 082 ms QT Int : 400 ms P-R-T Axes : 061 001 041 degrees QTc Int : 409 ms Normal sinus rhythm Normal ECG Confirmed by REBA HICKEY, MIKE ([id number]), clinical editor YANICK KINGSTON ([id number]) on 09/04/2018 1:59:24 PM Referred By: Davy Rangel Confirmed By:MIKE BRITTON MD
[2018-09-02 12:24] LABS: Prothrombin Time (Protime)PT. 13.3 SECONDS (11.7-14.9)
[2018-09-02 12:32] LABS: AST(SGOT) 17 U/L (15-37); Alanine Aminotransfer ALT/SGPT 29 U/L (16-61); Albumin, Serum 3.4 g/dL (3.2-5.0); Alkaline Phosphatase 61 U/L (45-117); Bilirubin, Direct 0.18 mg/dL (0.00-0.30); Protein, Total 6.4 g/dL (6.4-8.2)
[2018-09-02] MEDS: Cefazolin 2 GM in 0.9% Normal Saline 100 ML IV (13:15)
--- NOTE | 2018-09-02 13:29 | OP.PCM_ITS ---
Problem List (1) Calculus of gallbladder with chronic cholecystitis without obstruction Status: Chronic Report of Operation Date of Procedure: 09/02/18 Pre-Operative Diagnosis: Chronic cholecystitis with cholelithiasis Post-Operative Diagnosis: Same Surgery/Procedure Performed:: Laparoscopic cholecystectomy Type of Anesthesia:: General Anesthesiologist: Jann Cortez Specimen's removed: Gallbladder Estimated Blood Loss (mL): < 50 cc Fluids Replaced: 600 cc lr Description of Procedure: Patient was brought into the operating room. Placed in the supine position. Under excellent general trach intubation abdomen was sterilely prepped and draped in usual fashion. Local was injected in for umbilically. Dissection was carried down to the fascia. The fascia grasped with a Sherita. Varies needle was placed inside the abdomen. The abdomen was insufflated to 15 torr. A 10/12 trocar was placed. Patient was placed in the head up and rotated to the left position. A subxiphoid #5 trochars placed inferior to this another #5 trocar was placed laterally a #5 trocar was placed fundus of the gallbladder was grasped retracted in cephalad direction infundibulum was grasped retracted laterally I dissected out the cystic artery then the cystic duct cystic artery w as actually anterior to the cystic duct place hemoclips proximally distally and ligated the duct identified the cystic duct and placed 2 hemoclips distally and one proximally and ligated the duct delivered her gallbladder from the gallbladder bed I did have some spillage of bile but I had no spillage of stones placed a specimen specimen bag delivered through the umbilical port without difficulty reinflated the abdomen had a tear right with the falciform ligament went into the liver and I used electrocautery for good hemostasis here and then also used a more electrocautery on the liver bed to achieve good hemostasis clips look like they are in good place good hemostasis was achieved I remove the trochars under direct visualization good hemostasis was noted close the fascia the umbilical port figure stitch of 0 Vicryl skin incisions were closed with septicum stitches of 4-0 Monocryl Steri-Strips applied sterile dressings were applied and the patient tolerated the procedure well. - Admit VTE Documentation VTE Present on Admission: No VTE Mechan Device Prophylaxis: SCD's VTE Pharm Prophylaxis ordered?: No Reason prophylaxis not ordered:: Treatment Not Indicated
--- NOTE | 2018-09-02 13:30 | DCINST_ITS ---
Discharge Diet: Light diet - advance as tolerated Discharge Activity: May Not Drive - for 2-3 days or while taking narcotic pain medications., - - Do not drive, work heavy equipment or sign legal documents for 24 hours. May shower in (days): 1 - with the bandage in place. Additional Activity Instructions:: Pain medication may cause nausea. You should typically eat light foods as you take your pain medications. Pain medication may also cause constipation. If this is a problem for you, please discuss with your doctor. Call your doctor if your incision/area has: Continuous Slow Oozing, Sudden Increased Bleeding, Increased Pain/ Swelling, Increased Redness, Foul Smelling Discharge Call your doctor if you observe: Fever of 101 or Higher Suture Line Care: Avoid Pulling/Pushing, Avoid Pinching/Bending Additional Dressing/Incision Instructions:: Leave operative bandaids on for 2 days. When you remove dressing, leave Steri-Strips on until your follow-up appointment, or until the Steri-Strips fall off on their own. Allergies/Adverse Reactions: Allergies No Known Allergies Allergy (Verified 08/30/18 17:01) Medications to take at Discharge aspirin 81 mg tablet,delayed release 81 mg PO DAILY 08/02/18 cholecalciferol (vitamin D3) 10,000 unit capsule 10,000 unit PO DAILY 08/02/18 dextroamphetamine-amphetamine ER 20 mg 24hr capsule,extend release 20 mg PO BID cap 08/02/18 duloxetine 20 mg capsule,delayed release 40 mg PO DAILY cap 08/02/18 escitalopram 20 mg tablet 20 mg PO DAILY 08/02/18 folic acid 1 mg tablet 1 mg PO DAILY 08/02/18 lorazepam 0.5 mg tablet 0.5 mg PO QHS PRN 08/02/18 methotrexate sodium 2.5 mg tablet 17.5 mg PO QWEEK tab 08/02/18 multivitamin,ly-hlwa-hyqsszyp tablet 1 tab PO DAILY 08/02/18 omega-3 fatty acids 1,000 mg capsule 1,000 mg PO DAILY 08/02/18 rosuvastatin 10 mg tablet 10 mg PO DAILY 08/02/18 Primary Care Physician: Ana Lowe DO [Primary Care Provider] - Test Results: Test results from this visit will be discussed in further detail at your follow- up appointment, if applicable. Please Follow Up With: Davy Rangel MD - Please call [phone] to schedule an appointment. When: 7 days after your surgery.
--- NOTE | 2018-09-02 13:35 | GALL_PTH ---
PATIENT: ORACIO ELIZALDE LOC: [facility] – [place] U#:[id number] AGE/SX: 58/M ROOM: RE09/02/[address]: Dr. Davy Rangel MD : 1960 BED: DIS: 09/02/2018 SPEC #: [id number] RECD: 09/03/18 07:30 STATUS: ABIGAIL REEvelyne #: [id number] SARANYA: 09/02/18 13:[address]: Davy Rangel DEPT: SURGICAL PATHOLOGY RECD BY: Sawyer Moreira ENTERED: 09/03/18 09:38 SP TYPE: LORI TRACY DR: Dr. Ana Lowe, DO Tissues: Gallbladder, NOS Procedures: Surgery Specimen Level III HEADER OPERATION: Laparoscopic cholecystectomy PRE-OP DIAGNOSIS: Acute cholelithiasis with cholestasis TISSUE SUBMITTED: Gallbladder MICROSCOPIC DIAGNOSIS Gallbladder, cholecystectomy: Chronic cholecystitis. Cholelithiasis. CE:etienne 09/04/18 MICROSCOPIC DESCRIPTION Slides are reviewed. GROSS DESCRIPTION Received is one container labeled with the patient's name and designated gallbladder. The specimen consists of a gallbladder measuring 6 x 3 x 2.5 cm. The external surface is smooth and glistening. Focally, it is granular, hemorrhagic and contains cautery artifact. The lumen of the gallbladder contains yellow-green mucoid bile and one black calculus measuring 1.5 cm in greatest dimension. The mucosa is bile-stained and without any mass lesions. The gallbladder wall averages 0.2 cm in thickness and is free of mass lesions. [employer] sections of the gallbladder and the cystic duct are submitted in one cassette. / AM:etienne 09/03/18 TC:3 CPT: 78587
[2018-09-02] MEDS: Bupivacaine Mpf 0.5% 30 ML VIAL (13:45)
--- OUTSIDE RECORDS SUMMARY | 2018-11-04 22:52 | XMS RPT_ITS ---
:1960 Author Organization OHIP Support Name Relationship Address Phone [employer] Unavailable [address] [place] [address] GLENDY ELIZALDES Unavailable [address] + [place] [address] [employer] Unavailable [address] [place] [address] [place] [address] ANUPAM ELIZALDELIS Unavailable [address] + [place] [address] [employer] Unavailable [address] + [place] [address] ANUPAM ELIZALDELIS Unavailable [address] + [place] [address] [employer] Unavailable [address] + [place] [address] ANUPAM ELIZALDELIS Unavailable [address] + [place] [address] [employer] Unavailable [address] [place] [address] [place] [address] ANUPAM ELIZALDELIS Unavailable [address] + [place] [address] [employer] Unavailable [address] + [place] [address] ANUPAM ELIZALDELIS Unavailable [address] + [place] [address] [employer] Unavailable [address] [place] [address] [place] [address] ANUPAM ELIZALDELIS Unavailable [address] + [place] [address] [employer] Unavailable [address] + [place] [address] ANUPAM ELIZALDELIS Unavailable [address] + [place] [address] [employer] Unavailable [address] + [place] [address] TONIO ANTHONY Unavailable [address] + [place] [address] [employer] Unavailable [address] + [place] [address] TONIO ANTHONY Unavailable [address] + [place] [address] [employer] Unavailable [address] + [place] [address] TONIO ANTHONY Unavailable [address] + [place] [address] [employer] Unavailable [address] + [place] [address] TONIO ANTHONY Unavailable [address] + [place] [address] [employer] Unavailable [address] + [place] [address] ANUPAM ELIZALDELIS Unavailable [address] + [place] [address] [employer] Unavailable [address] + [place] [address] TONIO ANTHONY Unavailable [address] + [place] [address] [employer] Unavailable [address] + [place] [address] TONIO ANTHONY Unavailable [address] + [place] [address] [employer] Unavailable [address] + [place] [address] TONIO ANTHONY Unavailable [address] + [place] [address] Care Team Providers Name Role Phone Fast DO, Ana A Attending Unavailable Fast DO, Ana A Referring Unavailable Fast DO, Ana A Consulting Unavailable WENDIE NORIEGA (OD) Attending Unavailable WENDIE NORIEGA (OD) Referring Unavailable Fast, Ana Attending Unavailable Fast, Ana Referring Unavailable Fast, Ana Primary Care Unavailable Fast, Ana Attending Unavailable Fast, Ana Referring Unavailable Fast, Ana Primary Care Unavailable La Blanca, Davy Attending Unavailable Fast, Ana Referring Unavailable La Blanca, Davy Attending Unavailable Fast, Ana Referring Unavailable Freddie Britton Attending Unavailable Fast, Ana Referring Unavailable Fast, Ana Primary Care Unavailable Fast, Ana Consulting Unavailable Juan Carlos, Davy Attending Unavailable Juan Carlos, Davy Referring Unavailable Fast, Ana Primary Care Unavailable Fast, Ana Attending Unavailable Fast, Ana Primary Care Unavailable Vellanki, Lata Attending Unavailable Fast, Ana Primary Care Unavailable Fast, Ana Attending Unavailable Fast, Ana Referring Unavailable Fast, Ana Primary Care Unavailable Vellanki, Lata Attending Unavailable Vellanki, Lata Referring Unavailable Fast, Ana Primary Care Unavailable Fast, Ana Attending Unavailable Fast, Ana Referring Unavailable Fast, Ana Primary Care Unavailable Juan Carlos, Davy Attending Unavailable Fast, Ana Referring Unavailable La Blanca, Davy Attending Unavailable La Blanca, Davy Referring Unavailable Fast, Ana Primary Care Unavailable Juan Carlos, Davy Attending Unavailable La Blanca, Davy Referring Unavailable Fast, Ana Primary Care Unavailable La Blanca, Davy Consulting Unavailable Vellanki, Lata Attending Unavailable Vellanki, Lata Referring Unavailable Fast, Ana Primary Care Unavailable Vellanki, Lata Attending Unavailable Vellanki, Lata Referring Unavailable Fast, Ana Primary Care Unavailable PROBLEMS PROBLEMS DATE TYPE CONDITION / CODE ATTENDING STATUS SOURCE 09/02/2018 Unknown K80.10 - Calculus of Davy Rangel Active [place] gallbladder with Community chronic Hospital cholecystitis Repository without obstruction / K80.10(ICD-10) 08/09/2018 Unknown E04.2 - Nontoxic Davy Rangel Active [place] multinodular goiter Community / E04.2(ICD-10) Hospital Repository 09/03/2018 Unknown E78.5 - Fast, Ana Active [facility] Hyperlipidemia, Community unspecified / Hospital E78.5(ICD-10) Repository 07/19/2018 Unknown L40.59 - Other VellanLata gonzalez Active [place] psoriatic Community arthropathy / Hospital L40.59(ICD-10) Repository 07/19/2018 Unknown Z79.899 - Other long Lata Valle Active [facility] term (current) drug Community therapy / Hospital Z79.899(ICD-10) Repository 07/19/2018 Unknown L40.8 - Other VellanLata gonzalez Active [place] psoriasis / Community L40.8(ICD-10) Hospital Repository 07/19/2018 Unknown M17.0 - Bilateral VellanLata gonzalez Active [place] primary Community osteoarthritis of Hospital knee / M17.0(ICD-10) Repository 07/19/2018 Unknown G47.33 - Obstructive VellanLata gonzalez Active [place] sleep apnea (adult) Community (pediatric) / Hospital G47.33(ICD-10) Repository 12/17/2017 Unknown Z12.5 - Encounter Fast, Ana Active [place] for screening for [facility] malignant neoplasm [facility] prostate / Repository Z12.5(ICD-10) 12/17/2017 Unknown E05.90 - Fast, Ana Active [facility] Thyrotoxicosis, Community unspecified without Hospital thyrotoxic crisis or Repository storm / E05.90(ICD-10) 12/17/2017 Unknown E78.4 - Other Fast, Ana Active [place] hyperlipidemia / Community E78.4(ICD-10) Hospital Repository PROCEDURES PROCEDURES No Procedure Records FoundRESULTS RESULTS 12 LEAD ELECTROCARDIOGRAM Observed: 09/04/2018 Status: F Source: [place] 1:59 PM [facility] REPOSITORY [facility] Cardiovascular Services [address] [place] [address] 12 Lead EKG 09/02/18 1200 MR#: [id number] Acct: [id number] Name: ORACIO ELIZALDE Rep #: [id number] : 1960 58 From: Freddie Britton MD Attending Dr: Davy Rangel MD Status: [facility] Ordering Dr: Davy Rangel MD Date: 09/02/18 Location: [facility] Sex: M C Admitted: Test Reason : PRE-OP Blood Pressure : / mmHG Vent. Rate : 063 BPM Atrial Rate : 063 BPM P-R Int : 160 ms QRS Dur : 082 ms QT Int : 400 ms P-R-T Axes : 061 001 041 degrees QTc Int : 409 ms Normal sinus rhythm Normal ECG Confirmed by REBA HICKEY, FREDDIE ([id number]), website/blog editor YANICK KINGSTON ([id number]) on 09/04/2018 1:59:24 PM Referred By: Davy Rangel Confirmed By:FREDDIE BRITTON MD 09/04/18 1359 Date Freddie Britton MD CC: Davy Rangel MD; Ana Lowe DO Signed OPERATIVE REPORT Observed: 09/02/2018 Status: F Source: [place] 2:04 PM [facility] REPOSITORY [facility] Medical Records Department [address] [place] [address] Operative Report 09/02/18 1327 MR#: [id number] Acct: [id number] Name: ORACIO ELIZALDE Rep #: [id number] : 1960 58 From: Davy Rangel MD PCP: Ana Lowe DO Status: REG [facility] Y Location: [place] [address] Problem List (1) Calculus of gallbladder with [...] 09/02/2018 Status: F Source: [place] 1:35 PM [facility] REPOSITORY Patient: ORACIO ELIZALDE : 1960 (58/M) Acct Num: [id number] Phys: Juan Carlos HICKEY,Davy Unit Num: [id number] Loc: [facility] Specimen: [id number] Received: 09/03/18729 Spec Type: GALLBLADDE [...] thickness and is free of mass lesions. Product Tester sections of the gallbladder and the cystic duct are submitted in one cassette. / AM:eteinne 09/03/18 TC:3 CPT: 36964 HEADER OPERATION: Laparoscopic cholecystectomy PRE-OP DIAGNOSIS: Acute cholelithiasis with cholestasis TISSUE SUBMITTED: Gallbladder MICROSCOPIC DESCRIPTION Slides are reviewed. MICROSCOPIC DIAGNOSIS Gallbladder, cholecystectomy: Chronic cholecystitis. Cholelithiasis. CE:etienne 09/04/18 Signed Crow Petersen MD <signature on file> Performed By: #### PGALL #### [facility] Laboratory [address] [facility], [address] DISCHARGE INSTRUCTION Observed: 09/02/2018 Status: F Source: [place] 1:30 PM [facility] REPOSITORY [facility] Medical Records Department [address] [place] [address] Instructions for Home/Discharge Instructions 09/02/18 1329 MR#: [id number] Acct: [id number] Name: ORACIO ELIZALDE Rep #: [id number] : 1960 58 From: Davy Rangel MD PCP: Ana Lowe DO Status: [facility] Discharge Diet: Light diet - advance as [...] tablet 17.5 mg PO QWEEK tab 08/02/18 multivitamin,mx-gmjh-boddpkrl tablet 1 tab PO DAILY 08/02/18 omega-3 [...] With: Davy Rangel MD - Please call [phone] to schedule an appointment. When: 7 days after your surgery. 09/02/18 1330 <Electronically signed by Davy Rangel MD> Date Davy Rangel MD CC: Ana Lowe DO Signed SURGERY VISIT REPORT Observed: 09/02/2018 Status: F Source: [place] 1:01 PM [facility] REPOSITORY [facility] [address] [address] [place] [address] OFFICE VISIT Date of Service: 08/28/18 MR#: [id number] Acct: [id number] Name: ORACIO ELIZALDE Rep #: [id number] : 1960 Provider: Davy Rangel MD Age/Sex: 58/M Location: [facility] Status: Signed Intake Vital Signs08/28/18 Body Mass Index (BMI) 30.8 08/28/18 Height 5 ft 10 in 08/28/18 Weight: 215 lb 08/28/18 Body Mass Index (BMI) 30.8 Intake Visit Reasons: CONSULT GALLBLADDER Chief Complaint: gallstone Online Marketer Required: No Is patient in pain?: No [...] PO QWEEK tab 08/02/18 [History Confirmed 09/02/18] multivitamin,qc-kzjf-sltycmgv tablet 1 tab PO DAILY 08/02/18 [History Confirmed 09/02/18] omega-3 fatty acids 1,000 mg capsule 1,000 mg PO DAILY 08/02/18 [History Confirmed 09/02/18] rosuvastatin 10 mg tablet 10 mg PO DAILY 08/02/18 [History Confirmed 09/02/18] [facility] Medical History Anxiety and depression (Acute) GERD [...] CT of the chest without contrast at [facility] on 08/08/2018. This showed calculus in the [...] person, oriented to place, oriented to time [facility] Head: normocephalic, atraumatic Ears: external ears [...] 09/02/2018 Status: F Source: [place] 11:56 AM [facility] REPOSITORY TYPE CODE TESTS RESULT OUT OF RANGE REFERENCE UNITS LAB L300.4150 11.7-14.9 SECONDS Normal PROTIME 13.3 LAB L300.4200 Normal INR 1.0 Performed By: #### L300.3900, L300.4310, L500.3400 #### [facility] Laboratory [address] [place], [place], [address] PARTIAL THROMBOPLAST Collected: 09/02/2018 Status: F Source: [place] TIME 11:56 AM [facility] REPOSITORY TYPE CODE TESTS RESULT OUT OF RANGE REFERENCE UNITS LAB L300.4310 24.1-36.2 Seconds Normal PTT 30.0 Performed By: #### L300.3900, L300.4310, L500.3400 #### [facility] Laboratory [address] [place], [address] LIVER PROFILE Collected: 09/02/2018 Status: F Source: [place] 11:56 AM [facility] REPOSITORY TYPE CODE TESTS RESULT OUT OF [...] Performed By: #### L300.3900, L300.4310, L500.3400 #### [facility] Laboratory [address] [place], [place], [id number] PROGRESS Observed: 08/23/2018 Status: COMPLETED Source: [place] 4:01 PM [facility] REPOSITORY HNO ID: [id number] Author: Wendie Noriega Service: (none) Author Type: DIRECTOR OF PAYROLL Type: Progress Notes Filed: 08/23/2018 4:03 PM [...] options. THYROID Observed: 08/22/2018 Status: F Source: [place] 10:49 AM [facility] Imaging Services [address] [place] [address] Thyroid MR#: [id number] Acct: [id number] Name: ORACIO ELIZALDE Rep #: [id number] : 1960 M 58 From: Cuauhtemoc Vo MD PCP: Ana Lowe DO Status: REG CLI Study: Thyroid Date of Exam: 08/22/18 Exam# [id number] Ordering Dr: Davy Rangel MD STUDY: THYROID [...] Cuauhtemoc Vo MD at 10:05 EST Tel [phone], Service support , CC: Davy Rangel MD; Ana Lowe DO Ball Sorter: Signed SURGERY VISIT REPORT Observed: 08/13/2018 Status: F Source: [place] 11:16 AM [facility] REPOSITORY [facility] [address] [place] [address]. [address] [place] [address] OFFICE VISIT Date of Service: 08/09/18 MR#: [id number] Acct: [id number] Name: ORACIO ELIZALDE Rep #: [id number] : 1960 Provider: Davy Rangel MD Age/Sex: 58/M Location: [facility] Status: Signed Intake Intake Visit Reasons: US Guided Lt Thyroid Nodule Aspiration Chief Complaint: CALCIUM SCORING Online Marketer Required: No Is patient in pain?: No [...] mg PO QPM 08/02/18 [History Confirmed 08/09/18] multivitamin,mz-uabs-bheaxeqq tablet 1 tab PO DAILY 08/02/18 [History [...] Status: F Source: [place] W/CCTA 1:51 PM [facility] REPOSITORY [facility] Imaging Services [address] [place] [address] w/CCTA MR#: [id number] Acct: [id number] Name: ORACIO ELIZALDE Rep #: [id number] : 1960 M 58 From: Sin Cruz MD PCP: Ana Lowe DO Status: REG CLI Study: Limited Chest CT w/CCTA Date of Exam: 08/08/18 Exam# [id number] Ordering Dr: Ana Lowe DO STUDY: CT [...] Service support , CC: Ana Lowe DO Ball Sorter: Signed SURGERY VISIT REPORT Observed: 08/02/2018 Status: F Source: [place] 8:53 AM [facility] REPOSITORY [facility] [address] [place] [address]. [address] [place] [address] OFFICE VISIT Date of Service: 08/02/18 MR#: [id number] Acct: [id number] Name: ORACIO ELIZALDE Rep #: [id number] : 1960 Provider: Davy Rangel MD Age/Sex: 58/M Location: [facility] Status: Signed Intake Vital Signs08/02/18 Height 5 ft 10 in 08/02/18 Weight: 215 lb 11 oz 08/02/18 Body Mass Index (BMI) 30.9 08/02/18 Blood Pressure 128/77 H Intake Visit Reasons: Thyroid Nodule US 07/29 [facility] Chief Complaint: thyroid nodule Online Marketer Required: No Is patient in pain?: No [...] mg PO QPM 08/02/18 [History Confirmed 08/02/18] multivitamin,rh-nott-jexihghq tablet 1 tab PO DAILY 08/02/18 [History Confirmed 08/02/18] omega-3 fatty acids 1,000 mg capsule 1,000 mg PO DAILY 08/02/18 [History Confirmed 08/02/18] rosuvastatin 10 mg tablet 10 mg PO DAILY 08/02/18 [History Confirmed 08/02/18] [facility] Medical History Anxiety and depression (Acute) GERD [...] ultrasound. Patient had his thyroid ultrasound completed [facility] on 07/29/2018. This showed there to be [...] person, oriented to place, oriented to time [facility] Head: normocephalic, atraumatic Ears: external ears [...] 2 VIEWS Observed: 07/29/2018 Status: F Source: [place] 8:32 AM [facility] REPOSITORY [facility] Imaging Services [facility] [place] [address] Knee 1 or 2 Views MR#: [id number] Acct: [id number] Name: ORACIO ELIZALDE Rep #: [id number] : 1960 58 From: Dioni Guerrero MD PCP: Ana Lowe DO Status: REG CLI Study: Knee 1 or 2 Views Date of Exam: 07/29/18 Exam# [id number] Ordering Dr: Ana Lowe DO STUDY: X-RAY [...] Service support , CC: Ana Lowe DO Ball Sorter: Signed KNEE 1 OR 2 VIEWS Observed: 07/29/2018 Status: F Source: [place] 8:32 AM [facility] REPOSITORY [facility] Imaging Services [address] [place] [address] Knee 1 or 2 Views MR#: [id number] Acct: [id number] Name: ORACIO ELIZALDE Rep #: [id number] : 1960 M 58 From: Dioni Guerrero MD PCP: Ana Lowe DO Status: REG CLI Study: Knee 1 or 2 Views Date of Exam: 07/29/18 Exam# [id number] Ordering Dr: Ana Lowe DO STUDY: X-RAY [...] knee. Electronically Signed: Dioni Guerrero MD at 20:10 EST , Service support , CC: Ana Lowe DO Ball Sorter: Signed THYROID Observed: 07/29/2018 Status: F Source: [place] 8:10 AM [facility] REPOSITORY [facility] Imaging Services [address] [place] [address] Thyroid MR#: [id number] Acct: [id number] Name: ORACIO ELIZALDE Rep #: [id number] : 1960 M 58 From: Dioni Guerrero MD PCP: Ana Lowe DO Status: REG CLI Study: Thyroid Date of Exam: 07/29/18 Exam# [id number] Ordering Dr: Ana Lowe DO STUDY: THYROID [...] Service support , CC: Ana Lowe DO Ball Sorter: Signed CBC W/DIFF, AUTOMATED Collected: 07/19/2018 Status: F Source: [place] 9:32 AM [facility] REPOSITORY TYPE CODE TESTS RESULT OUT OF [...] Lymph 1.42 Performed By: #### L100.0100 #### [facility] Laboratory [address] [place], [address] COMPREHENSIVE METABOLIC Collected: 07/19/2018 Status: F Source: [facility] 9:32 AM [facility] REPOSITORY TYPE CODE TESTS RESULT OUT OF [...] GAP 7 Performed By: #### L500.4050 #### [facility] Laboratory [address] [place], [place], [address] CBC W/DIFF, AUTOMATED Collected: 04/22/2018 Status: F Source: [place] 3:58 PM [facility] REPOSITORY TYPE CODE TESTS RESULT OUT OF [...] Lymph 1.59 Performed By: #### L100.0100 #### [facility] Laboratory [address] [place], [place] [address]all juan. [place], [place], [address] COMPREHENSIVE METABOLIC Collected: 04/22/2018 Status: F Source: [facility] 3:58 PM [facility] REPOSITORY TYPE CODE TESTS RESULT OUT OF [...] GAP 9 Performed By: #### L500.4050 #### [facility] Laboratory [address] [place], [place] [address]all [facility] [place], [address] CBC W/DIFF, AUTOMATED Collected: 01/24/2018 Status: F Source: [place] 6:17 AM [facility] REPOSITORY TYPE CODE TESTS RESULT OUT OF [...] Lymph 1.70 Performed By: #### L100.0100 #### [facility] Laboratory [address] [place], [address] COMPREHENSIVE METABOLIC Collected: 01/24/2018 Status: F Source: [facility] 6:17 AM [facility] REPOSITORY TYPE CODE TESTS RESULT OUT OF [...] GAP 5 Performed By: #### L500.4050 #### [facility] Laboratory [address] [place], [address] CBC W/DIFF, AUTOMATED Collected: 12/17/2017 Status: F Source: [place] 6:22 AM [facility] REPOSITORY TYPE CODE TESTS RESULT OUT OF [...] Lymph 1.33 Performed By: #### L100.0100 #### [facility] Laboratory [address] [place], [place], [address] COMPREHENSIVE METABOLIC Collected: 12/17/2017 Status: F Source: [facility] 6:22 AM [facility] REPOSITORY TYPE CODE TESTS RESULT OUT OF [...] By: #### L500.4050, L500.4100, L501.9520, L501.9910 #### [facility] Laboratory [address] [place], [address] LIPID PROFILE Collected: 12/17/2017 Status: F Source: [place] 6:22 AM [facility] REPOSITORY TYPE CODE TESTS RESULT OUT OF [...] By: #### L500.4050, L500.4100, L501.9520, L501.9910 #### [facility] Laboratory [address] [place], [place], [address] THYROID STIM HORMONE Collected: 12/17/2017 Status: F Source: [place] (TSH) 6:22 AM [facility] REPOSITORY TYPE CODE TESTS RESULT OUT OF RANGE REFERENCE UNITS LAB L501.9520 0.358-3.74 uIU/mL Normal TSH 1.13 Performed By: #### L500.4050, L500.4100, L501.9520, L501.9910 #### [facility] Laboratory [address] [facility] [address] [place], [place], [address] PSA,TOTAL - ANNUAL Collected: 12/17/2017 Status: F Source: [place] SCREEN 6:22 AM [facility] REPOSITORY TYPE CODE TESTS RESULT OUT OF RANGE REFERENCE UNITS LAB L501.9910 0.00-4.00 ng/mL Normal PSA,TOT 0.85 SCREEN Result Comment: This test was performed using the TPSA assay method for the [employer] chemistry system. Values obtained with different assay methods cannot be used interchangably. When changing PSA assays in the course of monitoring a patient, additional sequential testing should be carried out to confirm baseline values. Performed By: #### L500.4050, L500.4100, L501.9520, L501.9910 #### [facility] Laboratory [address] [place], [place], [address] CBC W/DIFF, AUTOMATED Collected: 10/25/2017 Status: F Source: [place] 3:56 PM [facility] REPOSITORY TYPE CODE TESTS RESULT OUT OF [...] Lymph 1.48 Performed By: #### L100.0100 #### [facility] Laboratory [address] [place], [address] COMPREHENSIVE METABOLIC Collected: 10/25/2017 Status: F Source: [facility] 3:56 PM [facility] REPOSITORY TYPE CODE TESTS RESULT OUT OF [...] GAP 6 Performed By: #### L500.4050 #### [facility] Laboratory [facility] [place], [address] ALLERGIES ALLERGIES DATE TYPE / CODE NAME / CODE REACTION SEVERITY SOURCE 08/30/2018 Drug No Known Unknown [facility] Allergy/416 Allergies/A91975 [facility] 839703(SNOM 0388(RXNORM) Repository ED CT) Drug NO KNOWN [facility] Class/76824 ALLERGIES [address] [place] 1003(SNOMED Repository CT) ENCOUNTERS ENCOUNTERS ADMIT/DISCHARGE ACCOUNT ADMITTING ENCOUNTER LOCATION SOURCE NUMBER CLASS 09/02/2018 [id number] Ambulatory BMSBuilding:[facility].CF.[facility] Repository 09/02/2018/09/02/19 [id number] Ambulatory [place] [address] ing:SDCRoom: Repository [facility] 08/28/2018/08/28/19 [id number] Ambulatory BMSBuilding:B [place] [facility] MS.Critical access hospital Hospital Repository 08/26/2018 [id number] Ambulatory [facility] Repository 08/23/2018/08/26/19 [id number] Ambulatory [address] Repository 08/22/2018 [id number] Ambulatory [facility] HospitalBuild Hospital ing:[place] Repository 08/09/2018 [id number] Ambulatory BMSBuilding:[place] MS.CF[facility] Repository 08/09/2018/08/09/20 [id number] Ambulatory BMSBuilding:B [place] 18 MS.[facility] Repository 08/08/2018 [id number] [facility] Repository 08/02/2018/08/02/20 [id number] Ambulatory BMSBuilding:B [place] 18 MS.[facility] Repository 07/29/2018 [id number] Ambulatory [facility] HospitalBuild Hospital ing:[place] Repository 07/19/2018 [id number] Ambulatory [facility] HospitalBuild Hospital ing:[facility]LAB Repository 04/22/2018 [id number] Ambulatory [facility] HospitalBuild Hospital ing:[facility] Repository 03/29/2018 [id number] Ambulatory [facility] HospitalBuild Hospital ing:LAB.[facility]UR Repository E 01/24/2018 [id number] Ambulatory [facility] HospitalBuild Hospital ing:LAB Repository 12/17/2017 [id number] Ambulatory [facility] HospitalBuild Hospital ing:LAB Repository 10/25/2017 [id number] Ambulatory [facility] Hospital[facility] Hospital ing:MTLAB Repository 10/15/2017 [id number] Ambulatory [facility] HospitalBuild Hospital ing:[facility] Repository PAYERS PAYERS ENCOUNTER GUARANTOR PAYER SUBSCRIBER SOURCE 09/02/2018 ORACIO Sage Primary ORACIO [id number] Insurance:MEDICAL ERICAKDOB: [facility] [id number] Number: Repository [address]Ytp: (345) [id number] [phone] (HP) Date:[id number] [address] [place] [id number]: 09/02/2018 Secondary NOT GIVENUNK [place] Insurance:SELF PAY [facility] Number: Effective Repository Date:2018-09-02 09/02/2018 ORACIO T Primary ORACIO T [place] [id number] W Insurance:MEDICAL MICHALAKDOB: [facility] [id number] Number: Repository [id number]: 330 [id number] [phone] (HP) Date:3929-14-85HM [address] [address]TF: 09/02/2018 Secondary NOT GIVENUNK [place] Insurance:SELF PAY [facility] Number: Effective Repository Date:2018-08-28 08/28/2018 ORACIO T Primary [place]ACIO T [place] [id number] W Insurance:MEDICAL MICHALAKDOB: [facility] [place] [id number], [place] Number: Repository [id number]: 330 [id number] [phone] (HP) Date:1069-73-22JL [address] [address]DU: 08/28/2018 Secondary NOT GIVENUNK [place] Insurance:SELF PAY [facility] Number: Effective Repository Date:2018-08-28 08/26/2018 ORACIO T Primary ORACIO T OHIP [facility] Insurance:Medical MICHALAKDOB: Repository [id number] [facility] [id number] Number: [address] [place], [place] [id number] [place], [place] [address]Fuq: [phone]) Date:9472-03-41Knvr 18074Vjj: Name:[facility] [phone] () (HP)Tel: [phone], [place] [phone] (SJ) [id number]: 08/26/2018 Secondary ORACIO T OHIP Practices Insurance:Medical MICHALAKDOB: Repository [facility] [id number] Number: [address] [id number] RdWest [place], [place] Date: - [address]Jgm: [phone] [id number] [phone] (HP) Name:[address] [id number]: 08/22/2018 ORACIO T Primary ORACIO T [place] [id number] W Insurance:MEDICAL MICHALAKDOB: [facility] [place] [id number], [place] Number: Repository [id number]: [phone]) [id number] [phone] () Date:7678-67-89GV [address] [address]LE: 08/22/2018 Secondary NOT GIVENUNK [place] Insurance:SELF PAY [facility] Number: Effective Repository Date:2018-08-09 08/09/2018 ORACIO T Primary Insurance:[facility] ORACIO T [place] [id number] W PACKAGE PLANPolicy MICHALAKDOB: [facility] RDWest Number: Effective [id number], [place] Date:2018-08-09 Repository [phone]: (HP) 08/09/2018 Secondary NOT GIVENUNK [place] Insurance:SELF PAY [facility] Number: Effective Repository Date:2018-08-09 08/09/2018 ORACIO T Primary NOT GIVENUNK [place] [id number] W Insurance:SELF PAY [place] Number: Effective Repository [id number]: (260) Date:2018-08-07 [phone] (HP) 08/08/2018 ORACIO T Primary Insurance:[facility] [place]ACIO T [place] [id number] W PACKAGE PLANPolicy MICHALAKDOB: [facility] RDWest Number: [id number], [place] [id number] Repository [id number]: [phone]) Date:2018-07-24 [phone] (HP) 08/08/2018 Secondary NOT GIVENUNK [place] Insurance:SELF PAY [facility] Number: Effective Repository Date:2018-07-24 08/02/2018 ORACIO T Primary [place]ACIO T [place] [id number] W Insurance:MEDICAL MICHALAKDOB: [facility] [place] [id number] [place] Number: Repository [id number]: 330 [id number] [phone] () Date:0928-81-44PA [address] [address]XY: 08/02/2018 Secondary NOT GIVENUNK [place] Insurance:SELF PAY [facility] Number: Effective Repository Date:2018-08-01 07/29/2018 ORACIO T Primary ORACIO T [place] [id number] W Insurance:MEDICAL [facility]: [facility] [place] [id number] Indian [facility], [place] Number: Repository [id number]: 330 [id number] [phone] () Date:5207-16-62UL [address] [address]LL: 07/29/2018 Secondary NOT GIVENUNK [place] Insurance:SELF PAY [facility] Number: Effective Repository Date:2018-07-22 07/19/2018 ORACIO T Primary ORACIO T [place] [id number] W Insurance:MEDICAL MICHALAKDOB: [facility] [place] [id number] Indian [facility], [place] Number: Repository [id number]: 330 [id number] [phone] () Date:6140-01-18IO [address] [address]RO: 07/19/2018 Secondary NOT GIVENUNK [place] Insurance:SELF PAY [facility] Number: Effective Repository Date:2018-07-19 04/22/2018 ORACIO T Primary [place]ACIO T [place] [id number] W Insurance:MEDICAL MICHALAKDOB: [facility] [place] [id number] Indian [facility], [place] Number: Repository [id number]: 330 [id number] [phone] (HP) Date:8297-88-04GY [address] [place] [address]JZ: 04/22/2018 Secondary NOT GIVENUNK [place] Insurance:SELF PAY [facility] Number: Effective Repository Date:2018-04-22 03/29/2018 ORACIO T Primary [place]ACIO T [place] [id number] W Insurance:MEDICAL MICHALAKDOB: [facility] [id number] [place] Number: Repository [id number]: 330 [id number] [phone] (HP) Date:6969-48-92GK [address] [place] [address]LT: 03/29/2018 Secondary NOT GIVENUNK [place] Insurance:SELF PAY [facility] Number: Effective Repository Date:2018-03-29 01/24/2018 Oracio T Primary Oracio T [place] [id number] W Insurance:MEDICAL MichalakDOB: [facility] [id number] County General Hospital [place] Number: Repository [id number]: 330 [id number] [phone] (HP) Date:3653-11-60GS [address] [address]GQ: 01/24/2018 Secondary NOT GIVENUNK [place] Insurance:SELF PAY [facility] Number: Effective Repository Date:2018-01-24 12/17/2017 Oracio T Primary Oracio T [place] [id number] W Insurance:MEDICAL [facility] HospitalkD[facility]: [facility] [id number] County General Hospital [place] Number: Repository [id number]: 330 [id number] [phone] (HP) Date:2630-29-84XF [address] [place] [address]JZ: 12/17/2017 Secondary NOT GIVENUNK [place] Insurance:SELF PAY [facility] Number: Effective Repository Date:2017-12-17 10/25/2017 Oracio T Primary Oracio T [place] [id number] W Insurance:MEDICAL EricakDOB: [facility] [id number], [place] Number: Repository [id number]: ([phone]) [id number] [phone] (HP) Date:7877-67-76IH [address] [place] [address]WC: 10/25/2017 Secondary NOT GIVENUNK [place] Insurance:SELF PAY [facility] Number: Effective Repository Date:2017-10-25 10/15/2017 Oracio T Primary NOT GIVENUNK [place] [id number] W Insurance:SELF PAY [place] Number: Effective Repository [id number]: 330) Date:2017-09-04 [phone] ()
== END 2018-09-02 18:02 | disposition home or self-care (01) ==
LOC: SDC 11:41 → AC 11:41
PROVIDERS: Family Provider Internal Medicine; PCP Internal Medicine; Referring Provider Surgery; Visit Provider Surgery
PROC: (CPT 47562; principal; 2018-09-02 13:15)
DX: K80.10 Calculus of gallbladder with chronic cholecystitis without obstruction (principal); K21.9 Gastro-esophageal reflux disease without esophagitis; F32.9 Major depressive disorder, single episode, unspecified; F41.9 Anxiety disorder, unspecified; E78.5 Hyperlipidemia, unspecified; Z79.82 Long term (current) use of aspirin; Z79.899 Other long term (current) drug therapy
CPT/HCPCS: 47562; 36415; 80076; 85610; 85730; 88304; 93005; J7120; J2405

== ENCOUNTER → 2018-10-16 06:18 | Outpatient (CLI) | payer OTHER, SELFPAY ==
[2018-09-02 12:17] VITALS: BMI 31.4
[2018-10-16 06:35] LABS: Absolute Lymphocyte Count 1.58 X10^3/ul (0.83-4.51); Absolute Neutrophil Count 2.9 X10^3/uL (2.0-7.7); Basophil# 0.06 X10^3/uL; Basophil% 1.1 % (0-1); Eosinophil# 0.16 X10^3/uL; Eosinophils% 2.9 % (0-5); Hematocrit 47.9 % (40-54); Hemoglobin 16.5 g/dl (13.0-16.5); Lymphocyte # 1.58 X10^3/ul (4.0); Lymphocyte % 28.3 % (19-41); Mean Corp Hgb Conc 34.4 g/gl (32-36); Mean Platelet Vol. 8.8 fl (6.2-12.0); Monocyte# 0.81 X10^3/uL; Monocyte% 14.5 % (0-10); Neutrophil # 2.94 X10^3/uL (2.7-7.7); Neutrophil % 52.7 % (47-70); Platelet Count 282 K/mm3 (150-450); RBC Distribution Width CV 13.5 % (11.6-14.6); Red Blood Count 5.15 M/mm3 (4.6-6.2); White Blood Count 5.6 K/mm3 (4.4-11.0)
[2018-10-16 06:36] LABS: POSITIVE COUNT NO; POSITIVE DIFFERENTIAL NO; POSITIVE MORPHOLOGY NO
[2018-10-16 07:10] LABS: ALB/GLOB Ratio 1.2 RATIO (0.9-2.4); AST(SGOT) 20 U/L (15-37); Alanine Aminotransfer ALT/SGPT 36 U/L (16-61); Albumin, Serum 3.5 g/dL (3.2-5.0); Alkaline Phosphatase 69 U/L (45-117); Anion Gap 7 (5-15); BUN 15 mg/dL (7-18); BUN/Creat Ratio 15.2 RATIO (10-20); Calcium,Total 8.3 mg/dL (8.5-10.1); Chloride 107 mmol/L (98-107); Cholesterol 130 mg/dL (200); Creatinine, Serum 0.98 mg/dL (0.70-1.30); EST Glomerular Filtration Rate 83 mL/min (>60); Est Glom Filt Rate - Afr Amer 100 mL/min (>60); Glucose 101 mg/dL (74-106); High Density Lipoprotein 33 mg/dL; Potassium 4.4 mmol/L (3.5-5.1); Protein, Total 6.5 g/dL (6.4-8.2); Sodium Level 143 mmol/L (136-145); T4 Free Direct 0.93 ng/dL (0.76-1.46); Thyroid Stim Hormone (TSH) 0.88 uIU/mL (0.358-3.74); Triglycerides 139 mg/dL; Very Low Density Lipoprotein 28 mg/dL (5-40)
== END ==
PROVIDERS: Family Provider Internal Medicine; PCP Internal Medicine; Referring Provider Internal Medicine Rheumatology; Visit Provider Internal Medicine Rheumatology
DX: L40.59 Other psoriatic arthropathy (principal); L40.8 Other psoriasis; M17.0 Bilateral primary osteoarthritis of knee; G47.33 Obstructive sleep apnea (adult) (pediatric); E78.49 Other hyperlipidemia; E01.0 Iodine-deficiency related diffuse (endemic) goiter; Z79.899 Other long term (current) drug therapy
CPT/HCPCS: 36415; 80053; 80061; 84439; 84443; 84481; 85025

== ENCOUNTER 2018-12-01 22:13 | Emergency (ER) | payer OTHER, SELFPAY ==
[2018-09-02 12:17] VITALS: BMI 31.4
[2018-12-01 22:14] VITALS: BP 161/80; PULSE 82; RESP 18; TEMP 36.1; O2SAT 95; BMI 30.8
[2018-12-01] MEDS: Gabapentin 600 MG Tablet PO (22:55)
[2018-12-01] MEDS: oxyCODONE 5 MG Tablet 10 MG PO (22:55)
--- NOTE | 2018-12-01 23:59 | ED.DCSUM_ITS ---
- ER Visit Summary Date of Service: 12/01/18 Chief Complaint: TMJ pain History of Present Illness: The patient is a 58 M with a 5-day history of pain to the left TMJ. He states it started after he was clenching his pipe between his teeth. He does have history of similar. He denies chest pain or shortness of breath. Pain is worse with opening his mouth or with palpation. He is taking ibuprofen and Excedrin for pain. Physical Examination: Vital signs significant for blood pressure 161/80, otherwise unremarkable. Head neck examination was no facial edema or erythema. TMs are clear bilaterally. He does have tenderness of the left TMJ. He has no dental tenderness. He has good range of motion of his mandible. Heart is regular rate and rhythm. Lung sounds are clear. Abdomen soft nontender. Test Results: [] Emergency Department Course and Treatment: Patient was given dose of oxycodone here along with a p.o. dose of gabapentin. On repeat evaluation patient's pain is significantly improved. He has a few Percocet left that he can use tonight for breakthrough pain. I will write him a 4-day course of gabapentin and write a refill of Percocet for him. He will follow-up with Dr. Franklin as soon as possible. Treatment Plan: [] Disposition: Discharge Impression: TMJ syndrome This note was generated with [employer] dictation software. It may contain incorrect words, spelling, and punctuation that were not noted in review of the chart prior to signing ED Disposition - Plan for ED Patient: Disposition: Home or Assisted Living Instructions: ED TMJ Syndrome Prescriptions: Oxycodone HCl/Acetaminophen [Percocet 5/325] 1 tablet PO Q6H PRN PRN 3 Days #12 tablet PRN Reason: Pain Gabapentin 600 mg PO TID PRN PRN #12 tablet PRN Reason: Pain Referrals: Ana Lowe DO [Primary Care Provider] - Jose Francisco Franklin DDS [STAFF PHYSICIAN] - As soon as possible
[2018-12-02] MEDS: Gabapentin 600 MG Tablet PO (00:06)
[2018-12-02 00:19] VITALS: PULSE 84; RESP 16; O2SAT 98
== END 2018-12-02 00:22 | disposition home or self-care (01) ==
PROVIDERS: Emergency Provider Emergency Medicine; Family Provider Internal Medicine; PCP Internal Medicine
DX: M26.602 Left temporomandibular joint disorder, unspecified (principal); K21.9 Gastro-esophageal reflux disease without esophagitis; F32.9 Major depressive disorder, single episode, unspecified; F41.9 Anxiety disorder, unspecified; L40.50 Arthropathic psoriasis, unspecified; Z79.82 Long term (current) use of aspirin; Z79.899 Other long term (current) drug therapy; Z72.0 Tobacco use
CPT/HCPCS: 99283

== ENCOUNTER → 2019-01-16 15:58 | Outpatient (CLI) | payer OTHER, SELFPAY ==
[2019-01-16 17:24] LABS: Absolute Lymphocyte Count 1.63 X10^3/ul (0.83-4.51); Absolute Neutrophil Count 4.7 X10^3/uL (2.0-7.7); Basophil# 0.07 X10^3/uL; Basophil% 0.9 % (0-1); Eosinophil# 0.19 X10^3/uL; Eosinophils% 2.5 % (0-5); Hemoglobin 16.2 g/dl (13.0-16.5); Lymphocyte # 1.63 X10^3/ul (4.0); Lymphocyte % 21.8 % (19-41); Mean Corp Hgb Conc 35.2 g/gl (32-36); Mean Corpuscular Hgb 32.6 pg (27.0-32.0); Mean Corpuscular Volume 92.6 fL (80-94); Mean Platelet Vol. 9.9 fl (6.2-12.0); Monocyte# 0.87 X10^3/uL; Monocyte% 11.7 % (0-10); Neutrophil # 4.68 X10^3/uL (2.7-7.7); Neutrophil % 62.8 % (47-70); POSITIVE COUNT NO; POSITIVE DIFFERENTIAL NO; POSITIVE MORPHOLOGY NO; Platelet Count 292 K/mm3 (150-450); RBC Distribution Width CV 13.5 % (11.6-14.6); Red Blood Count 4.97 M/mm3 (4.6-6.2); White Blood Count 7.5 K/mm3 (4.4-11.0)
[2019-01-16 17:40] LABS: ALB/GLOB Ratio 1.2 RATIO (0.9-2.4); AST(SGOT) 22 U/L (15-37); Alanine Aminotransfer ALT/SGPT 41 U/L (16-61); Albumin, Serum 3.7 g/dL (3.2-5.0); Alkaline Phosphatase 76 U/L (45-117); Anion Gap 7 (5-15); BUN 19 mg/dL (7-18); BUN/Creat Ratio 18.6 RATIO (10-20); Calcium,Total 8.5 mg/dL (8.5-10.1); Chloride 108 mmol/L (98-107); Creatinine, Serum 1.02 mg/dL (0.70-1.30); EST Glomerular Filtration Rate 79 mL/min (>60); Est Glom Filt Rate - Afr Amer 96 mL/min (>60); Globulin 3.2 g/dL (2.2-4.2); Glucose 91 mg/dL (74-106); Potassium 3.8 mmol/L (3.5-5.1); Protein, Total 6.9 g/dL (6.4-8.2); Sodium Level 143 mmol/L (136-145)
== END ==
PROVIDERS: Family Provider Internal Medicine; PCP Internal Medicine; Referring Provider Internal Medicine Rheumatology; Visit Provider Internal Medicine Rheumatology
DX: L40.59 Other psoriatic arthropathy (principal); L40.8 Other psoriasis; M17.0 Bilateral primary osteoarthritis of knee; G47.33 Obstructive sleep apnea (adult) (pediatric); E78.5 Hyperlipidemia, unspecified; Z79.899 Other long term (current) drug therapy
CPT/HCPCS: 36415; 80053; 85025

== ENCOUNTER → 2019-02-12 05:58 | Outpatient (CLI) | payer OTHER, SELFPAY ==
[2019-02-12 08:00] LABS: Absolute Lymphocyte Count 1.61 X10^3/ul (0.83-4.51); Absolute Neutrophil Count 2.9 X10^3/uL (2.0-7.7); Basophil# 0.09 X10^3/uL; Basophil% 1.6 % (0-1); Eosinophil# 0.16 X10^3/uL; Eosinophils% 2.8 % (0-5); Hematocrit 46.7 % (40-54); Hemoglobin 15.9 g/dl (13.0-16.5); Lymphocyte # 1.61 X10^3/ul (4.0); Lymphocyte % 28.1 % (19-41); Mean Corpuscular Hgb 32.3 pg (27.0-32.0); Mean Corpuscular Volume 94.7 fL (80-94); Monocyte# 0.91 X10^3/uL; Monocyte% 15.9 % (0-10); Neutrophil # 2.93 X10^3/uL (2.7-7.7); Neutrophil % 51.3 % (47-70); Platelet Count 254 K/mm3 (150-450); RBC Distribution Width CV 13.4 % (11.6-14.6); RBC Distribution Width SD 46.1 fl (35.1-43.9); Red Blood Count 4.93 M/mm3 (4.6-6.2); White Blood Count 5.7 K/mm3 (4.4-11.0)
[2019-02-12 08:04] LABS: POSITIVE COUNT NO; POSITIVE DIFFERENTIAL NO; POSITIVE MORPHOLOGY NO
[2019-02-12 08:21] LABS: ALB/GLOB Ratio 1.3 RATIO (0.9-2.4); AST(SGOT) 23 U/L (15-37); Alanine Aminotransfer ALT/SGPT 35 U/L (16-61); Albumin, Serum 3.6 g/dL (3.2-5.0); Alkaline Phosphatase 71 U/L (45-117); Anion Gap 5 (5-15); BUN 17 mg/dL (7-18); Calcium,Total 8.5 mg/dL (8.5-10.1); Chloride 107 mmol/L (98-107); Cholesterol 175 mg/dL (200); Creatinine, Serum 1.13 mg/dL (0.70-1.30); EST Glomerular Filtration Rate 70 mL/min (>60); Est Glom Filt Rate - Afr Amer 85 mL/min (>60); Globulin 2.8 g/dL (2.2-4.2); Glucose 76 mg/dL (74-106); High Density Lipoprotein 31 mg/dL; PSA,Total - Annual Screen 0.87 ng/mL (0.00-4.00); Potassium 3.8 mmol/L (3.5-5.1); Protein, Total 6.4 g/dL (6.4-8.2); Sodium Level 141 mmol/L (136-145); Thyroid Stim Hormone (TSH) 1.31 uIU/mL (0.358-3.74); Triglycerides 159 mg/dL; Very Low Density Lipoprotein 32 mg/dL (5-40)
== END ==
PROVIDERS: Family Provider Internal Medicine; PCP Internal Medicine; Referring Provider Internal Medicine; Visit Provider Internal Medicine
DX: I25.10 Atherosclerotic heart disease of native coronary artery without angina pectoris (principal); E78.49 Other hyperlipidemia; R79.89 Other specified abnormal findings of blood chemistry; Z12.5 Encounter for screening for malignant neoplasm of prostate
CPT/HCPCS: 36415; 80053; 80061; 84153; 84443; 85025; G0103

== ENCOUNTER → 2019-03-06 06:54 | Outpatient (CLI) | payer OTHER, SELFPAY ==
--- NOTE | 2019-03-06 07:02 | ECHOCS_ITS ---
Reason For Study: EPPERSON Procedure This was a 2D Doppler, Color Flow transthoracic echocardiogram. The study was technically difficult. Due to body habitus. Contrast injection was performed. Exam performed in department. Left Ventricle Normal size and thickness. The estimated ejection fraction is 60 %. Normal diastology for age. No regional wall motion abnormalities noted. Right Ventricle Normal RV size. Normal systolic function. Atria Normal left atrium. Normal right atrium. No doppler evidence for ASD. Mitral Valve There is no mitral valve stenosis. No mitral valve insufficiency. Tricuspid Valve There is no tricuspid stenosis. Unable to estimate RV systolic pressure due to insufficient tricuspid regurgitant envelope. No tricuspid valve insufficiency. Aortic Valve Trisinus/trileaflet aortic valve. There is no aortic stenosis. Trivial aortic valve insufficiency. Pulmonic Valve There is no pulmonic valvular stenosis. No pulmonic valve insufficiency. Great Vessels Normal aortic root. Pericardium/Pleural No pericardial effusion. Medication Diluted definity 3.0ml given slow IV push to enhance endocardial definition. MMode/2D Measurements & Calculations LVIDd: 4.3 cm IVSd: 0.90 cm Ao root diam: 2.9 cm LVIDs: 2.9 cm LVPWd: 1.0 cm RVDd: 3.0 cm FS: 32.4 % LAV(MOD-bp): 46.0 ml LA A4 area: 17.2 cm2 LA dimension(2D): 3.3 cm LAV(MOD-bp) Indexed: 21.4 ml/m2 LAV(MOD-sp2): 38.1 ml LAV(MOD-sp4): 49.3 ml RA A4 area: 13.4 cm2 Time Measurements MV dec time: 0.17 sec Doppler Measurements & Calculations MV E max krishna: 61.6 cm/sec Lat Peak E' Krishna: 7.9 cm/sec Med Peak E' Krishna: 8.0 cm/sec MV A max krishna: 47.1 cm/sec E/E' lat: 7.8 E/E' med: 7.7 MV E/A: 1.3 Ao V2 max: 130.9 cm/sec AI max krishna: 181.2 cm/sec LV V1 max: 119.6 cm/sec Ao max P.9 mmHg AI max P.1 mmHg LV V1 max P.7 mmHg AI dec slope: 133.1 cm/sec2 AI P1/2t: 398.7 msec PA V2 max: 123.6 cm/sec TR max krishna: 233.4 cm/sec TR max P.1 mmHg Interpretation Summary Diluted definity 3.0ml given slow IV push to enhance endocardial definition. The estimated ejection fraction is 60 %. Normal diastology for age. Trivial aortic valve insufficiency. The study was technically difficult. Ordering Physician: Ana Lowe Referring Physician: Ana Lowe Performed By: Mildred Mittal, AMOS, RVT
--- NOTE | 2019-03-06 10:23 | MRI_ITS ---
STUDY: MRI BRAIN WITH AND WITHOUT CONTRAST REASON FOR EXAM: Male, 59 years old. parasthesia left face x 2 mos, hx prev tia. TECHNIQUE: Standardized multiplanar fat and water weighted pulse sequences were obtained. 19 IV Dotarem was administered for the contrast portion of the examination. COMPARISON: April 04, 2016 FINDINGS: Normal size of the ventricles and extra-axial spaces for the patient's age. Normal white matter tracts of the supratentorial brain. Normal bilateral basal ganglia. Normal thalami. There is no extra-axial fluid accumulation. Normal flow voids within the major intracranial circulation suggesting patency by spin echo criteria. Normal venous enhancement. There is no enhancing intra-axial or extra-axial abnormality. Normal sella turcica, pituitary gland, infundibular stalk, optic chiasm and hypothalamus. Normal tectal plate and pineal gland. Normal midbrain, adenike and medulla. Normal cerebellum. Normal basal cisterns. Again noted is a left mastoid disease. MRI/Brain W/WO Contrast IMPRESSION: Chronic left maxillary disease. Otherwise unremarkable examination. Electronically Signed: Jose Angel Loza MD at 12:25 EDT Tel , Service support ,
--- NOTE | 2019-03-13 10:24 | STRESSREP ---
Stress Test Report Date: 03/06/2019 Procedure: Exercise tolerance test/imaging study Indications: Dyspnea on exertion Consent: Per the patient Procedure: The patient exercised on a Nam protocol for 12 minutes achieving a peak heart rate of 139 bpm (86 % predicted maximal heart rate) with a peak blood pressure 180/50 mmHg and a peak MET capacity of 13.4 METs. The baseline ECG demonstrated normal sinus rhythm, no significant ST-T changes. The peak exercise ECG demonstrated sinus tachycardia with about [address] depression in the lateral leads and about 1 to [address] depression in the inferior leads. EKG during recovery revealed return of ST segments to baseline [There were no cardiac dysrhythmias pretest, during exercise, or recovery]. The functional capacity was considered excellent for age. There was [no complaint of chest discomfort during exercise or recovery]. The examination was discontinued secondary to leg discomfort. Impression: 1. Technically adequate (percent predicted maximal heart rate greater than 85%) exercise tolerance test 2. Stress test is negative for exercise-induced EKG changes of ischemia 3. The test test is negative for exercise-induced chest pain 4. Functional capacity is excellent for age 5. Nuclear images pending Myocardial perfusion imaging study: Technique: The patient was injected with 14.3 mCi of technetium 99m Cardiolite and subsequently rest SPECT Cardiolite nuclear imaging was obtained in the horizontal long, vertical long, and short axis views. The patient exercised on a Nam protocol. Please see above for details. The patient was injected with 44.7 mCi of technetium 99m Cardiolite and subsequently stress SPECT Cardiolite nuclear imaging was obtained in the horizontal long, vertical long, and short axis views. A gated Cardiolite study at peak stress was obtained. Interpretation: Rest and stress SPECT Cardiolite nuclear imaging status post realignment, normalization, and attenuation correction, demonstrates normal myocardial radioisotope uptake. The gated Cardiolite study demonstrates no significant regional wall motion abnormalities. The reported LVEF is 68 %. Impression: 1. There is no evidence of significant ischemia or infarction. 2. The gated Cardiolite study reports an LVEF of 68 %. This note was generated with [employer] software. It may contain incorrect words, spelling, and punctuation that were not noted in checking the note before signing.
== END ==
PROVIDERS: Family Provider Internal Medicine; PCP Internal Medicine; Referring Provider Internal Medicine; Visit Provider Internal Medicine
DX: R06.09 Other forms of dyspnea (principal); R20.9 Unspecified disturbances of skin sensation
CPT/HCPCS: 70553; 78452; 93017; 93306; A9500; A9575; Q9957; A4216; C8929

== ENCOUNTER → 2019-03-14 14:08 | Outpatient (CLI) | payer OTHER, SELFPAY ==
[2019-03-14 14:15] LABS: Lyme Ab Screen Interpretation REF LAB
[2019-03-14 16:03] LABS: Vitamin B12 774 pg/mL (211-911)
[2019-03-18 17:04] LABS: Lyme Scn Total Ab w/Rflx <0.91 ISR (0.00-0.90)
== END ==
PROVIDERS: Family Provider Internal Medicine; PCP Internal Medicine; Referring Provider Internal Medicine; Visit Provider Internal Medicine
DX: T14.8XXA Other injury of unspecified body region, initial encounter (principal); W57.XXXA Bitten or stung by nonvenomous insect and other nonvenomous arthropods, initial encounter; R41.3 Other amnesia
CPT/HCPCS: 36415; 82607; 86618

== ENCOUNTER → 2019-04-30 15:46 | Outpatient (CLI) | payer OTHER, SELFPAY ==
[2019-04-30 17:33] LABS: Absolute Lymphocyte Count 1.37 X10^3/uL (0.83-4.51); Absolute Neutrophil Count 4.1 X10^3/uL (2.0-7.7); Basophil% 1.5 % (0-1); Eosinophil# 0.17 X10^3/uL; Eosinophils% 2.6 % (0-5); Hemoglobin 15.9 g/dL (13.0-16.5); Lymphocyte # 1.37 X10^3/ul (4.0); Lymphocyte % 20.8 % (19-41); Mean Corp Hgb Conc 34.6 g/dL (32-36); Mean Corpuscular Hgb 32.3 pg (27.0-32.0); Mean Corpuscular Volume 93.5 fL (80-94); Mean Platelet Vol. 9.9 fl (6.2-12.0); Monocyte# 0.86 X10^3/uL; Monocyte% 13.1 % (0-10); NRBC Flagged by Analyzer 0 % (0-5); Neutrophil # 4.06 X10^3/uL (2.7-7.7); Neutrophil % 61.7 % (47-70); Platelet Count 272 K/mm3 (150-450); RBC Distribution Width CV 12.8 % (11.6-14.6); RBC Distribution Width SD 43.8 fl (35.1-43.9); Red Blood Count 4.92 M/mm3 (4.6-6.2); White Blood Count 6.6 K/mm3 (4.4-11.0)
[2019-04-30 17:50] LABS: ALB/GLOB Ratio 1.3 RATIO (0.9-2.4); AST(SGOT) 19 U/L (15-37); Alanine Aminotransfer ALT/SGPT 40 U/L (16-61); Albumin, Serum 3.8 g/dL (3.2-5.0); Alkaline Phosphatase 68 U/L (45-117); Anion Gap 6 (5-15); BUN 20 mg/dL (7-18); BUN/Creat Ratio 20.2 RATIO (10-20); Calcium,Total 8.6 mg/dL (8.5-10.1); Chloride 107 mmol/L (98-107); Creatinine, Serum 0.99 mg/dL (0.70-1.30); EST Glomerular Filtration Rate 82 mL/min (>60); Est Glom Filt Rate - Afr Amer 99 mL/min (>60); Globulin 2.9 g/dL (2.2-4.2); Glucose 86 mg/dL (74-106); Protein, Total 6.7 g/dL (6.4-8.2); Sodium Level 143 mmol/L (136-145)
== END ==
PROVIDERS: Family Provider Internal Medicine; PCP Internal Medicine; Referring Provider Internal Medicine Rheumatology; Visit Provider Internal Medicine Rheumatology
DX: L40.59 Other psoriatic arthropathy (principal); Z79.899 Other long term (current) drug therapy; L40.8 Other psoriasis; M17.0 Bilateral primary osteoarthritis of knee; G47.33 Obstructive sleep apnea (adult) (pediatric); E78.5 Hyperlipidemia, unspecified
CPT/HCPCS: 36415; 80053; 85025

== ENCOUNTER → 2019-05-14 06:07 | Outpatient (CLI) | payer OTHER, SELFPAY ==
[2019-05-14 07:11] LABS: Absolute Lymphocyte Count 1.68 X10^3/uL (0.83-4.51); Basophil# 0.08 X10^3/uL; Basophil% 1.4 % (0-1); Eosinophil# 0.21 X10^3/uL; Eosinophils% 3.6 % (0-5); Hematocrit 47.2 % (40-54); Hemoglobin 16.4 g/dL (13.0-16.5); Lymphocyte # 1.68 X10^3/ul (4.0); Lymphocyte % 29.1 % (19-41); Mean Corp Hgb Conc 34.7 g/dL (32-36); Mean Platelet Vol. 9.3 fl (6.2-12.0); Monocyte# 0.83 X10^3/uL; Monocyte% 14.4 % (0-10); NRBC Flagged by Analyzer 0 % (0-5); Neutrophil # 2.95 X10^3/uL (2.7-7.7); Platelet Count 277 K/mm3 (150-450); Red Blood Count 4.97 M/mm3 (4.6-6.2); White Blood Count 5.8 K/mm3 (4.4-11.0)
[2019-05-14 07:45] LABS: ALB/GLOB Ratio 1.3 RATIO (0.9-2.4); AST(SGOT) 19 U/L (15-37); Alanine Aminotransfer ALT/SGPT 35 U/L (16-61); Albumin, Serum 3.7 g/dL (3.2-5.0); Alkaline Phosphatase 64 U/L (45-117); Anion Gap 2 (5-15); BUN 14 mg/dL (7-18); BUN/Creat Ratio 13.1 RATIO (10-20); Calcium,Total 8.5 mg/dL (8.5-10.1); Chloride 108 mmol/L (98-107); Cholesterol 121 mg/dL (200); Creatinine, Serum 1.07 mg/dL (0.70-1.30); EST Glomerular Filtration Rate 75 mL/min (>60); Est Glom Filt Rate - Afr Amer 91 mL/min (>60); Globulin 2.9 g/dL (2.2-4.2); Glucose 93 mg/dL (74-106); High Density Lipoprotein 28 mg/dL; Protein, Total 6.6 g/dL (6.4-8.2); Sodium Level 141 mmol/L (136-145); Thyroid Stim Hormone (TSH) 0.83 uIU/mL (0.358-3.74); Triglycerides 161 mg/dL; Very Low Density Lipoprotein 32 mg/dL (5-40)
== END ==
PROVIDERS: Family Provider Internal Medicine; PCP Internal Medicine; Referring Provider Internal Medicine; Visit Provider Internal Medicine
DX: E78.49 Other hyperlipidemia (principal); D72.821 Monocytosis (symptomatic); E05.90 Thyrotoxicosis, unspecified without thyrotoxic crisis or storm
CPT/HCPCS: 36415; 80053; 80061; 84443; 85025

== ENCOUNTER → 2019-07-24 17:10 | Outpatient (CLI) | payer OTHER, SELFPAY ==
[2019-07-24 17:24] LABS: Absolute Lymphocyte Count 1.48 X10^3/uL (0.83-4.51); Basophil# 0.09 X10^3/uL; Basophil% 1.2 % (0-1); Eosinophil# 0.19 X10^3/uL; Eosinophils% 2.5 % (0-5); Hematocrit 47.4 % (40-54); Hemoglobin 16.8 g/dL (13.0-16.5); Lymphocyte # 1.48 X10^3/ul (4.0); Lymphocyte % 19.6 % (19-41); Mean Corp Hgb Conc 35.4 g/dL (32-36); Mean Corpuscular Hgb 33.3 pg (27.0-32.0); Mean Corpuscular Volume 93.9 fL (80-94); Mean Platelet Vol. 9.1 fl (6.2-12.0); Monocyte% 10.6 % (0-10); NRBC Flagged by Analyzer 0 % (0-5); Neutrophil # 4.97 X10^3/uL (2.7-7.7); Neutrophil % 65.8 % (47-70); Platelet Count 318 K/mm3 (150-450); RBC Distribution Width CV 12.4 % (11.6-14.6); RBC Distribution Width SD 42.4 fl (35.1-43.9); Red Blood Count 5.05 M/mm3 (4.6-6.2); White Blood Count 7.6 K/mm3 (4.4-11.0)
[2019-07-24 18:38] LABS: ALB/GLOB Ratio 1.3 RATIO (0.9-2.4); AST(SGOT) 22 U/L (15-37); Alanine Aminotransfer ALT/SGPT 41 U/L (16-61); Albumin, Serum 3.9 g/dL (3.2-5.0); Alkaline Phosphatase 68 U/L (45-117); Anion Gap 5 (5-15); BUN 15 mg/dL (7-18); BUN/Creat Ratio 15.5 RATIO (10-20); Calcium,Total 8.9 mg/dL (8.5-10.1); Chloride 106 mmol/L (98-107); Creatinine, Serum 0.97 mg/dL (0.70-1.30); EST Glomerular Filtration Rate 84 mL/min (>60); Est Glom Filt Rate - Afr Amer 102 mL/min (>60); Glucose 115 mg/dL (74-106); Potassium 4.1 mmol/L (3.5-5.1); Protein, Total 6.9 g/dL (6.4-8.2); Sodium Level 140 mmol/L (136-145)
== END ==
PROVIDERS: Family Provider Internal Medicine; PCP Internal Medicine; Referring Provider Internal Medicine Rheumatology; Visit Provider Internal Medicine Rheumatology
DX: L40.59 Other psoriatic arthropathy (principal); L40.8 Other psoriasis; M17.0 Bilateral primary osteoarthritis of knee; G47.33 Obstructive sleep apnea (adult) (pediatric); E78.5 Hyperlipidemia, unspecified; Z79.899 Other long term (current) drug therapy
CPT/HCPCS: 80053; 85025

== ENCOUNTER → 2019-08-11 16:02 | Outpatient (CLI) | payer OTHER, SELFPAY ==
[2019-08-11 20:34] LABS: Amphetamine Urine VISTA NEGATIVE (<1000 ng/mL); Barbiturate Urine VISTA NEGATIVE (< 200 ng/mL); Benzodiazepine Urine VISTA NEGATIVE (< 200 ng/mL); Cocaine Urine VISTA NEGATIVE (< 300 ng/mL); Ecstacy Urine VISTA NEGATIVE (< 500 ng/mL); Methadone Urine VISTA NEGATIVE (< 300 ng/mL); PCP Urine VISTA NEGATIVE (< 25 ng/mL); THC Urine VISTA NEGATIVE (< 50 ng/mL); Vista UDS pH Range 6
== END ==
PROVIDERS: Family Provider Internal Medicine; PCP Internal Medicine; Referring Provider Internal Medicine Pulmonary Disease; Visit Provider Internal Medicine Pulmonary Disease
DX: G47.10 Hypersomnia, unspecified (principal)
CPT/HCPCS: 80307

== ENCOUNTER → 2019-08-27 15:51 | Outpatient (CLI) | payer OTHER, SELFPAY ==
--- NOTE | 2019-08-27 15:55 | US_ITS ---
STUDY: THYROID ULTRASOUND REASON FOR EXAM: Male, 59 years old. NODULE TECHNIQUE: Ultrasound evaluation of the thyroid was performed with real-time and static wagner-scale imaging. COMPARISON: 08/22/2018. FINDINGS: RIGHT LOBE: The right lobe of the thyroid gland measures 5.4 x 2.3 x 2.0 cm. There is a homogeneous echotexture. A tiny 4 mm nodule is seen in the upper pole. LEFT LOBE: The left lobe of the thyroid gland measures 5.6 x 2.1 x 2.1 cm. There is a homogeneous echotexture. A very subtle 9 mm solid nodule is seen in the mid left lobe. A tiny 3 mm cyst is seen. ISTHMUS: The isthmus measures 6 mm . The regional lymph nodes are normal. US/Thyroid IMPRESSION: No dominant nodules. No specific follow-up recommendation is made. Electronically Signed: Viktor Mccormick MD at 23:35 EST , Service support ,
== END ==
PROVIDERS: Family Provider Internal Medicine; PCP Internal Medicine; Referring Provider Internal Medicine; Visit Provider Internal Medicine
DX: E04.1 Nontoxic single thyroid nodule (principal)
CPT/HCPCS: 76536

== ENCOUNTER → 2019-12-12 08:46 | Outpatient (CLI) | payer OTHER, SELFPAY ==
[2019-12-12 10:19] LABS: Absolute Neutrophil Count 3.3 X10^3/uL (2.0-7.7); Basophil# 0.09 X10^3/uL; Basophil% 1.6 % (0-1); Eosinophil# 0.12 X10^3/uL; Eosinophils% 2.2 % (0-5); Hematocrit 47.5 % (40-54); Hemoglobin 16.1 g/dL (13.0-16.5); Lymphocyte % 25.3 % (19-41); Mean Corp Hgb Conc 33.9 g/dL (32-36); Mean Corpuscular Hgb 31.9 pg (27.0-32.0); Mean Corpuscular Volume 94.2 fL (80-94); Mean Platelet Vol. 9.5 fl (6.2-12.0); Monocyte# 0.64 X10^3/uL; Monocyte% 11.6 % (0-10); NRBC Flagged by Analyzer 0 % (0-5); Neutrophil # 3.27 X10^3/uL (2.7-7.7); Neutrophil % 59.1 % (47-70); Platelet Count 272 K/mm3 (150-450); RBC Distribution Width CV 13.2 % (11.6-14.6); RBC Distribution Width SD 45.5 fl (35.1-43.9); Red Blood Count 5.04 M/mm3 (4.6-6.2); White Blood Count 5.5 K/mm3 (4.4-11.0)
[2019-12-12 10:37] LABS: Vitamin D,25 Hydroxy 46.2 ng/mL
[2019-12-12 10:56] LABS: ALB/GLOB Ratio 1.2 RATIO (0.9-2.4); AST(SGOT) 21 U/L (15-37); Alanine Aminotransfer ALT/SGPT 41 U/L (16-61); Albumin, Serum 3.5 g/dL (3.2-5.0); Alkaline Phosphatase 62 U/L (45-117); Anion Gap 4 (5-15); BUN 12 mg/dL (7-18); BUN/Creat Ratio 11.8 RATIO (10-20); Chloride 106 mmol/L (98-107); Cholesterol 115 mg/dL (200); Creatinine, Serum 1.02 mg/dL (0.70-1.30); EST Glomerular Filtration Rate 79 mL/min (>60); Est Glom Filt Rate - Afr Amer 96 mL/min (>60); Glucose 105 mg/dL (74-106); High Density Lipoprotein 31 mg/dL; Protein, Total 6.5 g/dL (6.4-8.2); Sodium Level 140 mmol/L (136-145); Thyroid Stim Hormone (TSH) 0.59 uIU/mL (0.358-3.74); Triglycerides 109 mg/dL; Very Low Density Lipoprotein 22 mg/dL (5-40)
== END ==
PROVIDERS: PCP Internal Medicine; Referring Provider Internal Medicine Rheumatology; Visit Provider Internal Medicine Rheumatology
DX: Z00.00 Encounter for general adult medical examination without abnormal findings (principal); E78.49 Other hyperlipidemia; I25.10 Atherosclerotic heart disease of native coronary artery without angina pectoris; E04.1 Nontoxic single thyroid nodule; L40.59 Other psoriatic arthropathy; L40.8 Other psoriasis; M17.0 Bilateral primary osteoarthritis of knee; G47.33 Obstructive sleep apnea (adult) (pediatric); Z79.899 Other long term (current) drug therapy
CPT/HCPCS: 36415; 80053; 80061; 82306; 84443; 85025

== ENCOUNTER → 2020-03-22 06:28 | Outpatient (CLI) | payer OTHER, SELFPAY ==
[2020-03-22 07:21] LABS: Absolute Lymphocyte Count 1.69 X10^3/uL (0.83-4.51); Absolute Neutrophil Count 3.8 X10^3/uL (2.0-7.7); Basophil# 0.09 X10^3/uL; Basophil% 1.4 % (0-1); Eosinophil# 0.23 X10^3/uL; Eosinophils% 3.5 % (0-5); Hematocrit 46.2 % (40-54); Hemoglobin 15.8 g/dL (13.0-16.5); Lymphocyte # 1.69 X10^3/ul (4.0); Lymphocyte % 25.8 % (19-41); Mean Corp Hgb Conc 34.2 g/dL (32-36); Mean Corpuscular Hgb 33.3 pg (27.0-32.0); Mean Corpuscular Volume 97.3 fL (80-94); Mean Platelet Vol. 9.6 fl (6.2-12.0); Monocyte# 0.68 X10^3/uL; Monocyte% 10.4 % (0-10); NRBC Flagged by Analyzer 0 % (0-5); Neutrophil # 3.84 X10^3/uL (2.7-7.7); Neutrophil % 58.6 % (47-70); Platelet Count 293 K/mm3 (150-450); RBC Distribution Width CV 13.1 % (11.6-14.6); Red Blood Count 4.75 M/mm3 (4.6-6.2); White Blood Count 6.6 K/mm3 (4.4-11.0)
[2020-03-22 07:39] LABS: ALB/GLOB Ratio 1.2 RATIO (0.9-2.4); AST(SGOT) 21 U/L (15-37); Alanine Aminotransfer ALT/SGPT 39 U/L (16-61); Albumin, Serum 3.6 g/dL (3.2-5.0); Alkaline Phosphatase 64 U/L (45-117); Anion Gap 4 (5-15); BUN 16 mg/dL (7-18); BUN/Creat Ratio 16.3 RATIO (10-20); Calcium,Total 8.5 mg/dL (8.5-10.1); Chloride 105 mmol/L (98-107); Creatinine, Serum 0.98 mg/dL (0.70-1.30); EST Glomerular Filtration Rate 82 mL/min (>60); Est Glom Filt Rate - Afr Amer 100 mL/min (>60); Globulin 2.9 g/dL (2.2-4.2); Glucose 144 mg/dL (74-106); Potassium 3.6 mmol/L (3.5-5.1); Protein, Total 6.5 g/dL (6.4-8.2); Sodium Level 140 mmol/L (136-145)
== END ==
PROVIDERS: PCP Internal Medicine; Referring Provider Internal Medicine Rheumatology; Visit Provider Internal Medicine Rheumatology
DX: L40.59 Other psoriatic arthropathy (principal); L40.8 Other psoriasis; M17.0 Bilateral primary osteoarthritis of knee; G47.33 Obstructive sleep apnea (adult) (pediatric); E78.5 Hyperlipidemia, unspecified; Z79.899 Other long term (current) drug therapy
CPT/HCPCS: 36415; 80053; 85025

== ENCOUNTER → 2020-03-24 06:02 | Outpatient (CLI) | payer OTHER, SELFPAY ==
[2020-03-24 06:46] LABS: Cholesterol 123 mg/dL (200); High Density Lipoprotein 29 mg/dL; PSA,Total - Annual Screen 0.82 ng/mL (0.00-4.00); Triglycerides 131 mg/dL; Very Low Density Lipoprotein 26 mg/dL (5-40)
[2020-03-24 07:07] LABS: Microalbumin,Random Urine 6.6 mg/L (NO RANGE EST.); Microalbumin:Creatinine Ratio 3.8 mg/g CRE (<30 mg/g CRE)
[2020-03-24 09:45] LABS: Hemoglobin A1c 5.3 % (3.8-5.6)
== END ==
PROVIDERS: PCP Internal Medicine; Referring Provider Internal Medicine; Visit Provider Internal Medicine
DX: Z12.5 Encounter for screening for malignant neoplasm of prostate (principal); E78.49 Other hyperlipidemia; R73.01 Impaired fasting glucose
CPT/HCPCS: 36415; 80061; 82043; 82570; 83036; 84153; G0103

== ENCOUNTER 2020-04-26 18:41 | Emergency (ER) | payer OTHER, SELFPAY ==
[2020-04-26 18:42] VITALS: BP 160/85; PULSE 75; RESP 14; RESP 18; TEMP 36.3; O2SAT 98; O2SAT 99; BMI 30.4
--- NOTE | 2020-04-26 20:10 | RAD_ITS ---
STUDY: X-RAY - RIGHT HAND REASON FOR EXAM: Male, 60 years old. Patient reports cutting the tip of the third digit. TECHNIQUE: 3 view(s) of the hand. COMPARISON: Right index finger, 06/30/2012. FINDINGS: Normal radiocarpal articulation. Normal distal radioulnar joint. Normal visualized carpal bones. Normal carpal articulations Normal carpometacarpal articulation of the thumb. Normal second through fifth carpometacarpal joints. Normal metacarpi. Normal metacarpophalangeal joint of the thumb. Normal interphalangeal joint of the thumb. Normal proximal and distal phalanges of the thumb. Normal metacarpophalangeal joints of the second through fifth fingers. Normal proximal and distal interphalangeal joints of the second through fifth fingers. Normal phalanges of the second through fifth fingers. There is a soft tissue injury to the tip of the third digit. There is no foreign body. RAD/Hand Min 3 Views IMPRESSION: Soft tissue injury to the tip of third digit. There is no underlying osseous or articular abnormality Electronically Signed: Lito Hernandez DO at 20:38 EDT Tel [phone], Service support ,
[2020-04-26] MEDS: oxyCODONE 5 MG Tablet PO (20:13)
--- NOTE | 2020-04-26 22:06 | ED.DEP ---
ED Disposition - Plan for ED Patient: Instructions: ED Laceration Hand Prescriptions: Cephalexin [Keflex] 500 mg PO Q6 #40 cap Prescription Printed Hydrocodone Bitart/Apap 5-325 [[place] 5MG-325MG] 1 tab PO Q6H PRN PRN 3 Days #10 tab PRN Reason: Pain Prescription Printed Referrals: Ana Lowe DO [Primary Care Provider] - Frankie Sargent MD [STAFF PHYSICIAN] -
[2020-04-26] MEDS: Cephalexin 250 MG Capsule 500 MG PO (22:25)
--- NOTE | 2020-04-26 23:31 | ED.VISSUMM ---
- ER Visit Summary Date of Service: 04/26/20 Chief Complaint: Right middle finger injury History of Present Illness: The patient is a 60 M presenting with right middle finger injury. Patient states that his finger was caught between a pallet and a railing. He was using a table saw but was not cut with the saw. He has injury to his right distal middle finger. Tetanus is up-to-date. Physical Examination: Vitals are stable. Patient is afebrile. Alert no acute distress. HEENT exam is unremarkable. Neck is supple. Lungs are clear and equal bilaterally. Heart is regular rate and rhythm. Extremities tendon function intact. Normal cap refill. He has a 2cm laceration to the distal right middle finger through the nail distally and on both sides of the nail. Skin is warm and dry. No focal neurologic deficit. Remainder of exam is unremarkable. Emergency Department Course and Treatment: Wound was irrigated. Right hand x-ray shows soft tissue injury to the tip of third digit. There is no underlying osseous or articular abnormality. He was given Percocet. Digital block was performed. Wound was further irrigated. 2, 5-0 simple sutures were placed on each side of the nail, total 4, 5-0 sutures. Dressing and aluminum foam splint were placed. He is advised to follow-up with Dr. Sargent. He is given prescription for [place] and Keflex. Advised to return to ED for worsening complaints. Disposition: Discharge home Impression: Right middle finger laceration, laceration repair This note was generated with [employer] dictation software. It may contain incorrect words, spelling, and punctuation that were not noted in review of the chart prior to signing ED Disposition - Plan for ED Patient: Disposition: Home or Assisted Living Instructions: ED Laceration Hand Prescriptions: Cephalexin [Keflex] 500 mg PO Q6 #40 cap Prescription Printed Hydrocodone Bitart/Apap 5-325 [[place] 5MG-325MG] 1 tab PO Q6H PRN PRN 3 Days #10 tab PRN Reason: Pain Prescription Printed Referrals: Ana Lowe DO [Primary Care Provider] - Frankie Sargent MD [STAFF PHYSICIAN] -
== END 2020-04-26 22:25 | disposition home or self-care (01) ==
LOC: ED 19:27
PROVIDERS: Emergency Provider Emergency Medicine; PCP Internal Medicine
DX: S61.312A Laceration without foreign body of right middle finger with damage to nail, initial encounter (principal); W23.1XXA Caught, crushed, jammed, or pinched between stationary objects, initial encounter; Y93.9 Activity, unspecified; Y92.9 Unspecified place or not applicable
CPT/HCPCS: 12001; 73130; 99284

== ENCOUNTER → 2020-06-23 15:48 | Outpatient (CLI) | payer OTHER, SELFPAY ==
[2020-06-23 18:26] LABS: Hematocrit 49.1 % (40-54); Hemoglobin 16.2 g/dL (13.0-16.5); Mean Corpuscular Hgb 33.1 pg (27.0-32.0); Mean Corpuscular Volume 100.2 fL (80-94); Mean Platelet Vol. 9.5 fl (6.2-12.0); Platelet Count 336 K/mm3 (150-450); RBC Distribution Width CV 13.3 % (11.6-14.6); RBC Distribution Width SD 48.3 fl (35.1-43.9); White Blood Count 9.6 K/mm3 (4.4-11.0)
[2020-06-23 18:51] LABS: ALB/GLOB Ratio 1.1 RATIO (0.9-2.4); AST(SGOT) 19 U/L (15-37); Alanine Aminotransfer ALT/SGPT 38 U/L (16-61); Albumin, Serum 3.6 g/dL (3.2-5.0); Alkaline Phosphatase 65 U/L (45-117); Anion Gap 4 (5-15); BUN 21 mg/dL (7-18); BUN/Creat Ratio 21.2 RATIO (10-20); Calcium,Total 8.8 mg/dL (8.5-10.1); Chloride 106 mmol/L (98-107); Creatinine, Serum 0.99 mg/dL (0.70-1.30); EST Glomerular Filtration Rate 82 mL/min (>60); Est Glom Filt Rate - Afr Amer 99 mL/min (>60); Globulin 3.2 g/dL (2.2-4.2); Glucose 84 mg/dL (74-106); Potassium 4.1 mmol/L (3.5-5.1); Protein, Total 6.8 g/dL (6.4-8.2); Sodium Level 141 mmol/L (136-145)
== END ==
PROVIDERS: PCP Internal Medicine; Referring Provider Internal Medicine Rheumatology; Visit Provider Internal Medicine Rheumatology
DX: L40.59 Other psoriatic arthropathy (principal); L40.8 Other psoriasis; M17.0 Bilateral primary osteoarthritis of knee; G47.33 Obstructive sleep apnea (adult) (pediatric); E78.5 Hyperlipidemia, unspecified; G47.419 Narcolepsy without cataplexy; Z79.899 Other long term (current) drug therapy
CPT/HCPCS: 36415; 80053; 85027

== ENCOUNTER → 2020-10-04 15:52 | Outpatient (CLI) | payer OTHER, SELFPAY ==
--- NOTE | 2020-10-04 15:55 | US_ITS ---
STUDY: THYROID ULTRASOUND REASON FOR EXAM: Male, 60 years old. Nodule. TECHNIQUE: Ultrasound evaluation of the thyroid was performed with real-time and static wagner-scale imaging. COMPARISON: August 27, 2019. August 22, 2018. FINDINGS: RIGHT LOBE: The right lobe of the thyroid gland measures 5.6 x 2.2 x 1.9 cm. There is a homogeneous echotexture. Stable superior pole solid nodule measuring 0.3 x 0.3 x 0.2 cm. LEFT LOBE: The left lobe of the thyroid gland measures 5.6 x 2.1 x 2.5 cm. There is a homogeneous echotexture. Several small hypoechoic and anechoic nodules, unchanged, scattered through the thyroid gland the largest measuring 0.3 x 0.2 x 0.2 cm. No significant change in solid mid pole nodule 0.9 x 0.8 x 1.0 cm. ISTHMUS: The isthmus measures 9 mm . On the prior study the thyroid isthmus measured 6 mm. No nodules identified.. The regional lymph nodes are normal. US/Thyroid IMPRESSION: Enlarged thyroid gland not significantly changed in size. Stable small solid nodule right lobe. Stable 1 cm solid nodule midpole left lobe. Stable small cystic and solid nodules throughout the left lobe of the thyroid gland. Slight increase in size of the thyroid isthmus. Electronically Signed: Emil Sterling MD at 2:08 EST , Service support ,
== END ==
PROVIDERS: PCP Internal Medicine; Referring Provider Internal Medicine; Visit Provider Internal Medicine
DX: E04.1 Nontoxic single thyroid nodule (principal)
CPT/HCPCS: 76536

== ENCOUNTER → 2020-11-17 15:43 | Outpatient (CLI) | payer OTHER, SELFPAY ==
[2020-11-17 17:48] LABS: Absolute Lymphocyte Count 1.73 X10^3/uL (0.83-4.51); Absolute Neutrophil Count 5.2 X10^3/uL (2.0-7.7); Basophil% 1.2 % (0-1); Eosinophils% 2.4 % (0-5); Hematocrit 50.1 % (40-54); Hemoglobin 16.7 g/dL (13.0-16.5); Lymphocyte # 1.73 X10^3/ul (4.0); Lymphocyte % 20.8 % (19-41); Mean Corp Hgb Conc 33.3 g/dL (32-36); Mean Corpuscular Hgb 32.6 pg (27.0-32.0); Mean Corpuscular Volume 97.7 fL (80-94); Mean Platelet Vol. 9.8 fl (6.2-12.0); Monocyte# 0.99 X10^3/uL; Monocyte% 11.9 % (0-10); NRBC Flagged by Analyzer 0 % (0-5); Neutrophil # 5.24 X10^3/uL (2.7-7.7); Neutrophil % 63.1 % (47-70); Platelet Count 344 K/mm3 (150-450); RBC Distribution Width CV 12.7 % (11.6-14.6); RBC Distribution Width SD 45.3 fl (35.1-43.9); Red Blood Count 5.13 M/mm3 (4.6-6.2); White Blood Count 8.3 K/mm3 (4.4-11.0)
[2020-11-17 18:13] LABS: ALB/GLOB Ratio 1.2 RATIO (0.9-2.4); AST(SGOT) 17 U/L (15-37); Alanine Aminotransfer ALT/SGPT 40 U/L (16-61); Albumin, Serum 3.7 g/dL (3.2-5.0); Alkaline Phosphatase 74 U/L (45-117); Anion Gap 2 (5-15); BUN 16 mg/dL (7-18); BUN/Creat Ratio 16.5 RATIO (10-20); Calcium,Total 8.7 mg/dL (8.5-10.1); Chloride 107 mmol/L (98-107); Creatinine, Serum 0.97 mg/dL (0.70-1.30); EST Glomerular Filtration Rate 83 mL/min (>60); Est Glom Filt Rate - Afr Amer 101 mL/min (>60); Globulin 3.1 g/dL (2.2-4.2); Glucose 110 mg/dL (74-106); Protein, Total 6.8 g/dL (6.4-8.2); Sodium Level 138 mmol/L (136-145)
== END ==
PROVIDERS: PCP Internal Medicine; Referring Provider Internal Medicine Rheumatology; Visit Provider Internal Medicine Rheumatology
DX: L40.59 Other psoriatic arthropathy (principal); Z79.899 Other long term (current) drug therapy; L40.8 Other psoriasis; M17.0 Bilateral primary osteoarthritis of knee; G47.33 Obstructive sleep apnea (adult) (pediatric); E78.5 Hyperlipidemia, unspecified; G47.419 Narcolepsy without cataplexy
CPT/HCPCS: 36415; 80053; 85025

== ENCOUNTER → 2020-12-10 | Outpatient (CLI) | payer OTHER, SELFPAY ==
[2020-12-10 15:37] LABS: Absolute Lymphocyte Count 0.61 X10^3/uL (0.83-4.51); Absolute Neutrophil Count 6.2 X10^3/uL (2.0-7.7); Basophil# 0.02 X10^3/uL; Basophil% 0.3 % (0-1); Eosinophil# 0.06 X10^3/uL; Eosinophils% 0.8 % (0-5); Hematocrit 51.6 % (40-54); Lymphocyte # 0.61 X10^3/ul (0.83-4.51); Lymphocyte % 8.4 % (19-41); Mean Corp Hgb Conc 34.9 g/dL (32-36); Mean Corpuscular Hgb 32.8 pg (27.0-32.0); Mean Platelet Vol. 9.6 fl (6.2-12.0); Monocyte# 0.32 X10^3/uL; Monocyte% 4.4 % (0-10); NRBC Flagged by Analyzer 0 % (0-5); Neutrophil # 6.24 X10^3/uL (2.7-7.7); Neutrophil % 85.7 % (47-70); Platelet Count 240 K/mm3 (150-450); RBC Distribution Width CV 12.3 % (11.6-14.6); RBC Distribution Width SD 42.7 fl (35.1-43.9); Red Blood Count 5.49 M/mm3 (4.6-6.2); White Blood Count 7.3 K/mm3 (4.4-11.0)
[2020-12-10 16:09] LABS: Vitamin B12 649 pg/mL (211-911)
[2020-12-10 16:18] LABS: ALB/GLOB Ratio 1.1 RATIO (0.9-2.4); AST(SGOT) 23 U/L (15-37); Alanine Aminotransfer ALT/SGPT 49 U/L (16-61); Albumin, Serum 3.3 g/dL (3.2-5.0); Alkaline Phosphatase 66 U/L (45-117); Anion Gap 4 (5-15); BUN 16 mg/dL (7-18); CPK Total, Creatine Kinase 61 U/L (39-308); Calcium,Total 7.9 mg/dL (8.5-10.1); Chloride 108 mmol/L (98-107); Creatinine, Serum 0.94 mg/dL (0.70-1.30); EST Glomerular Filtration Rate 86 mL/min (>60); Est Glom Filt Rate - Afr Amer 104 mL/min (>60); Glucose 113 mg/dL (74-106); Potassium 3.3 mmol/L (3.5-5.1); Protein, Total 6.3 g/dL (6.4-8.2); Sodium Level 139 mmol/L (136-145); Thyroid Stim Hormone (TSH) 0.46 uIU/mL (0.358-3.74)
[2020-12-13 13:36] LABS: Pathologist Review Reviewed
== END | disposition home or self-care (01) ==
LOC: LABSPEC 15:25
PROVIDERS: PCP Internal Medicine; Referring Provider Internal Medicine; Visit Provider Internal Medicine
DX: R07.89 Other chest pain (principal); R53.83 Other fatigue
CPT/HCPCS: 80053; 82550; 82607; 82746; 84443; 84484; 85025

== ENCOUNTER → 2020-12-22 06:02 | Outpatient (CLI) | payer OTHER, SELFPAY ==
[2020-12-22 06:45] LABS: Absolute Lymphocyte Count 1.79 X10^3/uL (0.83-4.51); Absolute Neutrophil Count 3.9 X10^3/uL (2.0-7.7); Basophil% 1.4 % (0-1); Eosinophil# 0.18 X10^3/uL; Eosinophils% 2.5 % (0-5); Hematocrit 47.6 % (40-54); Hemoglobin 16.1 g/dL (13.0-16.5); Lymphocyte # 1.79 X10^3/ul (0.83-4.51); Lymphocyte % 24.6 % (19-41); Mean Corp Hgb Conc 33.8 g/dL (32-36); Mean Corpuscular Hgb 31.8 pg (27.0-32.0); Mean Corpuscular Volume 94.1 fL (80-94); Mean Platelet Vol. 9.2 fl (6.2-12.0); Monocyte# 1.23 X10^3/uL; Monocyte% 16.9 % (0-10); NRBC Flagged by Analyzer 0 % (0-5); Neutrophil # 3.92 X10^3/uL (2.7-7.7); Neutrophil % 53.9 % (47-70); Platelet Count 319 K/mm3 (150-450); RBC Distribution Width CV 12.6 % (11.6-14.6); Red Blood Count 5.06 M/mm3 (4.6-6.2); White Blood Count 7.3 K/mm3 (4.4-11.0)
[2020-12-22 07:19] LABS: ALB/GLOB Ratio 1.1 RATIO (0.9-2.4); AST(SGOT) 17 U/L (15-37); Alanine Aminotransfer ALT/SGPT 41 U/L (16-61); Albumin, Serum 3.3 g/dL (3.2-5.0); Alkaline Phosphatase 65 U/L (45-117); Anion Gap 6 (5-15); BUN 20 mg/dL (7-18); BUN/Creat Ratio 20.4 RATIO (10-20); Calcium,Total 8.7 mg/dL (8.5-10.1); Chloride 107 mmol/L (98-107); Cholesterol 142 mg/dL (200); Creatinine, Serum 0.98 mg/dL (0.70-1.30); EST Glomerular Filtration Rate 82 mL/min (>60); Est Glom Filt Rate - Afr Amer 100 mL/min (>60); Glucose 96 mg/dL (74-106); High Density Lipoprotein 31 mg/dL; Potassium 4.2 mmol/L (3.5-5.1); Protein, Total 6.3 g/dL (6.4-8.2); Sodium Level 142 mmol/L (136-145); Thyroid Stim Hormone (TSH) 0.96 uIU/mL (0.358-3.74); Triglycerides 116 mg/dL; Very Low Density Lipoprotein 23 mg/dL (5-40)
[2020-12-22 08:33] LABS: Hemoglobin A1c 5.2 % (3.8-5.6)
== END ==
PROVIDERS: PCP Internal Medicine; Referring Provider Internal Medicine; Visit Provider Internal Medicine
DX: E78.49 Other hyperlipidemia (principal); E05.90 Thyrotoxicosis, unspecified without thyrotoxic crisis or storm; R73.01 Impaired fasting glucose
CPT/HCPCS: 36415; 80053; 80061; 83036; 84443; 85025

== ENCOUNTER → 2021-02-03 05:57 | Outpatient (CLI) | payer OTHER, SELFPAY ==
[2021-02-03 07:30] LABS: Erythrocyte Sedimentation Rate < 1 mm/hr (0-20)
[2021-02-03 07:49] LABS: CRP 3.72 mg/L (0.0-3.0)
== END ==
PROVIDERS: PCP Internal Medicine; Referring Provider Internal Medicine; Visit Provider Internal Medicine
DX: M19.90 Unspecified osteoarthritis, unspecified site (principal)
CPT/HCPCS: 36415; 85652; 86140

== ENCOUNTER → 2021-02-16 16:20 | Outpatient (CLI) | payer OTHER, SELFPAY ==
[2021-02-16 17:44] LABS: Absolute Lymphocyte Count 1.71 X10^3/uL (0.83-4.51); Absolute Neutrophil Count 4.2 X10^3/uL (2.0-7.7); Basophil% 1.4 % (0-1); Eosinophil# 0.19 X10^3/uL; Eosinophils% 2.6 % (0-5); Hematocrit 48.8 % (40-54); Hemoglobin 16.7 g/dL (13.0-16.5); Lymphocyte # 1.71 X10^3/ul (0.83-4.51); Lymphocyte % 23.6 % (19-41); Mean Corp Hgb Conc 34.2 g/dL (32-36); Mean Corpuscular Hgb 32.5 pg (27.0-32.0); Mean Corpuscular Volume 94.9 fL (80-94); Mean Platelet Vol. 9.4 fl (6.2-12.0); Monocyte# 1.02 X10^3/uL; Monocyte% 14.1 % (0-10); NRBC Flagged by Analyzer 0 % (0-5); Neutrophil % 57.9 % (47-70); Platelet Count 332 K/mm3 (150-450); RBC Distribution Width CV 13.4 % (11.6-14.6); RBC Distribution Width SD 46.5 fl (35.1-43.9); Red Blood Count 5.14 M/mm3 (4.6-6.2); White Blood Count 7.3 K/mm3 (4.4-11.0)
[2021-02-16 18:20] LABS: ALB/GLOB Ratio 1.1 RATIO (0.9-2.4); AST(SGOT) 22 U/L (15-37); Alanine Aminotransfer ALT/SGPT 35 U/L (16-61); Albumin, Serum 3.7 g/dL (3.2-5.0); Alkaline Phosphatase 71 U/L (45-117); Anion Gap 4 (5-15); BUN 17 mg/dL (7-18); BUN/Creat Ratio 13.9 RATIO (10-20); Calcium,Total 8.8 mg/dL (8.5-10.1); Chloride 107 mmol/L (98-107); Creatinine, Serum 1.22 mg/dL (0.70-1.30); EST Glomerular Filtration Rate 64 mL/min (>60); Est Glom Filt Rate - Afr Amer 77 mL/min (>60); Globulin 3.3 g/dL (2.2-4.2); Glucose 90 mg/dL (74-106); Potassium 4.4 mmol/L (3.5-5.1); Sodium Level 138 mmol/L (136-145)
== END ==
PROVIDERS: PCP Internal Medicine; Referring Provider Internal Medicine Rheumatology; Visit Provider Internal Medicine Rheumatology
DX: L40.59 Other psoriatic arthropathy (principal); Z79.899 Other long term (current) drug therapy; L40.8 Other psoriasis; M17.0 Bilateral primary osteoarthritis of knee; G47.33 Obstructive sleep apnea (adult) (pediatric); E78.5 Hyperlipidemia, unspecified; G47.419 Narcolepsy without cataplexy
CPT/HCPCS: 36415; 80053; 85025

== ENCOUNTER → 2021-03-24 06:14 | Outpatient (CLI) | payer OTHER, SELFPAY ==
[2021-03-24 07:07] LABS: Absolute Lymphocyte Count 1.36 X10^3/uL (0.83-4.51); Absolute Neutrophil Count 5.7 X10^3/uL (2.0-7.7); Basophil# 0.08 X10^3/uL; Basophil% 0.9 % (0-1); Eosinophil# 0.22 X10^3/uL; Eosinophils% 2.5 % (0-5); Hematocrit 48.6 % (40-54); Lymphocyte # 1.36 X10^3/ul (0.83-4.51); Lymphocyte % 15.7 % (19-41); Mean Corpuscular Hgb 33.4 pg (27.0-32.0); Mean Corpuscular Volume 95.5 fL (80-94); Mean Platelet Vol. 9.1 fl (6.2-12.0); Monocyte# 1.28 X10^3/uL; Monocyte% 14.8 % (0-10); NRBC Flagged by Analyzer 0 % (0-5); Neutrophil # 5.66 X10^3/uL (2.7-7.7); Neutrophil % 65.6 % (47-70); Platelet Count 299 K/mm3 (150-450); RBC Distribution Width CV 13.4 % (11.6-14.6); RBC Distribution Width SD 46.8 fl (35.1-43.9); Red Blood Count 5.09 M/mm3 (4.6-6.2); White Blood Count 8.6 K/mm3 (4.4-11.0)
[2021-03-24 07:48] LABS: ALB/GLOB Ratio 1.2 RATIO (0.9-2.4); AST(SGOT) 23 U/L (15-37); Alanine Aminotransfer ALT/SGPT 45 U/L (16-61); Albumin, Serum 3.6 g/dL (3.2-5.0); Alkaline Phosphatase 68 U/L (45-117); Anion Gap 7 (5-15); BUN 12 mg/dL (7-18); BUN/Creat Ratio 10.3 RATIO (10-20); Calcium,Total 8.5 mg/dL (8.5-10.1); Chloride 104 mmol/L (98-107); Cholesterol 133 mg/dL (200); Creatinine, Serum 1.17 mg/dL (0.70-1.30); EST Glomerular Filtration Rate 67 mL/min (>60); Est Glom Filt Rate - Afr Amer 81 mL/min (>60); Glucose 88 mg/dL (74-106); High Density Lipoprotein 28 mg/dL; PSA,Total - Annual Screen 1.02 ng/mL (0.00-4.00); Potassium 4.1 mmol/L (3.5-5.1); Protein, Total 6.6 g/dL (6.4-8.2); Sodium Level 141 mmol/L (136-145); Triglycerides 170 mg/dL; Very Low Density Lipoprotein 34 mg/dL (5-40)
[2021-03-24 08:42] LABS: Hemoglobin A1c 5.1 % (3.8-5.6)
== END ==
PROVIDERS: PCP Internal Medicine; Referring Provider Internal Medicine; Visit Provider Internal Medicine
DX: R73.01 Impaired fasting glucose (principal); E78.49 Other hyperlipidemia; Z12.5 Encounter for screening for malignant neoplasm of prostate
CPT/HCPCS: 36415; 80053; 80061; 83036; 84153; 85025; G0103

== ENCOUNTER → 2021-05-31 07:43 | Outpatient (CLI) | payer OTHER, SELFPAY ==
[2021-05-31 08:41] LABS: Absolute Lymphocyte Count 1.56 X10^3/uL (0.83-4.51); Absolute Neutrophil Count 3.6 X10^3/uL (2.0-7.7); Basophil# 0.13 X10^3/uL; Eosinophils% 3.1 % (0-5); Hematocrit 46.6 % (40-54); Hemoglobin 16.1 g/dL (13.0-16.5); Lymphocyte # 1.56 X10^3/ul (0.83-4.51); Mean Corp Hgb Conc 34.5 g/dL (32-36); Mean Corpuscular Hgb 33.2 pg (27.0-32.0); Mean Corpuscular Volume 96.1 fL (80-94); Mean Platelet Vol. 9.5 fl (6.2-12.0); Monocyte# 0.96 X10^3/uL; Monocyte% 14.8 % (0-10); NRBC Flagged by Analyzer 0 % (0-5); Neutrophil # 3.61 X10^3/uL (2.7-7.7); Neutrophil % 55.6 % (47-70); Platelet Count 298 K/mm3 (150-450); RBC Distribution Width CV 13.2 % (11.6-14.6); RBC Distribution Width SD 46.5 fl (35.1-43.9); Red Blood Count 4.85 M/mm3 (4.6-6.2); White Blood Count 6.5 K/mm3 (4.4-11.0)
[2021-05-31 09:28] LABS: AST(SGOT) 22 U/L (15-37); Alanine Aminotransfer ALT/SGPT 37 U/L (16-61); Albumin, Serum 3.3 g/dL (3.2-5.0); Alkaline Phosphatase 65 U/L (45-117); Anion Gap 7 (5-15); BUN 12 mg/dL (7-18); BUN/Creat Ratio 11.9 RATIO (10-20); Chloride 104 mmol/L (98-107); Creatinine, Serum 1.01 mg/dL (0.70-1.30); EST Glomerular Filtration Rate 80 mL/min (>60); Est Glom Filt Rate - Afr Amer 96 mL/min (>60); Globulin 3.2 g/dL (2.2-4.2); Glucose 82 mg/dL (74-106); Potassium 3.9 mmol/L (3.5-5.1); Protein, Total 6.5 g/dL (6.4-8.2); Sodium Level 141 mmol/L (136-145)
== END ==
PROVIDERS: PCP Internal Medicine; Referring Provider Internal Medicine Rheumatology; Visit Provider Internal Medicine Rheumatology
DX: L40.59 Other psoriatic arthropathy (principal); L40.8 Other psoriasis; M17.0 Bilateral primary osteoarthritis of knee; G47.33 Obstructive sleep apnea (adult) (pediatric); E78.5 Hyperlipidemia, unspecified; G47.419 Narcolepsy without cataplexy; Z79.899 Other long term (current) drug therapy
CPT/HCPCS: 36415; 80053; 85025

== ENCOUNTER → 2021-06-29 08:01 | Outpatient (CLI) | payer OTHER, SELFPAY ==
[2021-06-29 08:42] LABS: Absolute Lymphocyte Count 0.96 X10^3/uL (0.83-4.51); Absolute Neutrophil Count 4.4 X10^3/uL (2.0-7.7); Basophil# 0.09 X10^3/uL; Basophil% 1.4 % (0-1); Eosinophil# 0.12 X10^3/uL; Eosinophils% 1.8 % (0-5); Hematocrit 48.5 % (40-54); Lymphocyte # 0.96 X10^3/ul (0.83-4.51); Lymphocyte % 14.5 % (19-41); Mean Corp Hgb Conc 35.1 g/dL (32-36); Mean Corpuscular Hgb 33.3 pg (27.0-32.0); Mean Corpuscular Volume 94.9 fL (80-94); Mean Platelet Vol. 9.1 fl (6.2-12.0); Monocyte# 1.02 X10^3/uL; Monocyte% 15.4 % (0-10); NRBC Flagged by Analyzer 0 % (0-5); Neutrophil # 4.39 X10^3/uL (2.7-7.7); Neutrophil % 66.4 % (47-70); Platelet Count 264 K/mm3 (150-450); RBC Distribution Width CV 12.8 % (11.6-14.6); RBC Distribution Width SD 44.5 fl (35.1-43.9); Red Blood Count 5.11 M/mm3 (4.6-6.2); White Blood Count 6.6 K/mm3 (4.4-11.0)
[2021-06-29 09:14] LABS: AST(SGOT) 18 U/L (15-37); Alanine Aminotransfer ALT/SGPT 42 U/L (16-61); Albumin, Serum 3.4 g/dL (3.2-5.0); Alkaline Phosphatase 68 U/L (45-117); Anion Gap 3 (5-15); BUN 11 mg/dL (7-18); BUN/Creat Ratio 10.1 RATIO (10-20); Calcium,Total 8.7 mg/dL (8.5-10.1); Chloride 107 mmol/L (98-107); Cholesterol 123 mg/dL (200); Creatinine, Serum 1.09 mg/dL (0.70-1.30); EST Glomerular Filtration Rate 73 mL/min (>60); Est Glom Filt Rate - Afr Amer 88 mL/min (>60); Globulin 3.4 g/dL (2.2-4.2); Glucose 92 mg/dL (74-106); High Density Lipoprotein 30 mg/dL; Potassium 4.1 mmol/L (3.5-5.1); Protein, Total 6.8 g/dL (6.4-8.2); Sodium Level 141 mmol/L (136-145); Triglycerides 102 mg/dL; Very Low Density Lipoprotein 20 mg/dL (5-40)
[2021-06-29 09:49] LABS: Hemoglobin A1c 5.2 % (3.8-5.6)
== END ==
PROVIDERS: PCP Internal Medicine; Referring Provider Internal Medicine; Visit Provider Internal Medicine
DX: R73.01 Impaired fasting glucose (principal)
CPT/HCPCS: 36415; 80053; 80061; 83036; 85025

== ENCOUNTER → 2021-06-30 | Outpatient (CLI) | payer OTHER, SELFPAY | END | disposition home or self-care (01) | LOC: LABSPEC 15:05 | PROVIDERS: PCP Internal Medicine; Visit Provider Internal Medicine | DX: R05.9 Cough, unspecified (principal) | CPT/HCPCS: 87635; U0005; U0003 ==

== ENCOUNTER → 2021-07-13 08:53 | Outpatient (CLI) | payer OTHER, SELFPAY ==
--- NOTE | 2021-07-13 08:55 | RAD_ITS ---
STUDY: X-RAY CHEST REASON FOR EXAM: Male, 61 years old. Cough. TECHNIQUE: Frontal and lateral views of the chest. COMPARISON: 08/05/2013. FINDINGS: The lungs are clear and expanded. There is no demonstrated pleural abnormality. Normal size heart. Normal mediastinum and ilia. Normal visualized pulmonary arteries. Normal visualized aortic arch and descending thoracic aorta. Normal visualized thoracic spine. Normal visualized ribs, clavicles, and shoulders. There is no demonstrated abnormality of the visualized soft tissue structures of the upper abdomen. RAD/Chest PA and Lateral IMPRESSION: No interval change. Normal chest. Electronically Signed: Demond Deal MD at 11:11 EST , Service support ,
== END ==
PROVIDERS: PCP Internal Medicine; Referring Provider Internal Medicine; Visit Provider Internal Medicine
DX: R05.9 Cough, unspecified (principal)
CPT/HCPCS: 71046

== ENCOUNTER 2021-08-19 16:03 | Outpatient (CLI) | payer OTHER, SELFPAY ==
[2021-08-19 16:09] LABS: Bacteria 0 SEEN /hpf (None Seen); Mucous, Urine 0 SEEN /hpf (<or=2+); Red Blood Cells-Urine 0 SEEN /hpf (0-5); White Blood Cells 0 SEEN /hpf (0-5)
--- NOTE | 2021-08-19 16:20 | RAD_ITS ---
STUDY: X-RAY CHEST REASON FOR EXAM: Male, 61 years old. FEVER TECHNIQUE: PA and lateral views of the chest. COMPARISON: 07/13/2021 FINDINGS: Patchy, ill-defined reticular and groundglass opacities of the left more than right infrahilar lower lobe is new since the prior study. There is no demonstrated pleural abnormality. Normal size heart. Normal mediastinum and ilia. Normal visualized pulmonary arteries. Normal visualized aortic arch and descending thoracic aorta. Normal visualized thoracic spine. Normal visualized ribs, clavicles, and shoulders. There is no demonstrated abnormality of the visualized soft tissue structures of the upper abdomen. RAD/Chest PA and Lateral IMPRESSION: 1. Left more than right infrahilar infiltrate suggesting pneumonia, including viral causes. Electronically Signed: Wesley Ramirez MD ([place]) at 16:30 EST , Service support ,
[2021-08-19 16:52] LABS: Color, Urine Yellow (Yellow); Glucose, Dipstick Normal (Normal); Ketone-Dipstick Negative (Negative); Leukocyte Esterase-Dipstick Negative /ul (Negative); Nitrite-Dipstick Negative (Negative); Occult Blood-Urine Negative /ul (Negative); Protein-Dipstick Negative (Negative); Specific Gravity, Urine 1.015 (1.002-1.030); Urine Bilirubin Dipstick Negative (Negative); Urine Clarity Sl. Cloudy (Clear); Urine Urobilinogen Normal (Normal)
[2021-08-19 16:56] LABS: Absolute Neutrophil Count 3.7 X10^3/uL (2.0-7.7); Basophil# 0.05 X10^3/uL; Basophil% 0.8 % (0-1); Eosinophil# 0.07 X10^3/uL; Eosinophils% 1.1 % (0-5); Lymphocyte % 20.7 % (19-41); Mean Corp Hgb Conc 33.3 g/dL (32-36); Mean Corpuscular Hgb 32.3 pg (27.0-32.0); Mean Corpuscular Volume 96.8 fL (80-94); Mean Platelet Vol. 9.3 fl (6.2-12.0); Monocyte% 17.5 % (0-10); NRBC Flagged by Analyzer 0 % (0-5); Neutrophil # 3.69 X10^3/uL (2.7-7.7); Neutrophil % 58.6 % (47-70); Platelet Count 260 K/mm3 (150-450); RBC Distribution Width CV 12.9 % (11.6-14.6); Red Blood Count 5.27 M/mm3 (4.6-6.2); White Blood Count 6.3 K/mm3 (4.4-11.0)
[2021-08-19 17:21] LABS: Squamous Epithelial Cells - UA 0-5 SEEN /hpf (0-5)
[2021-08-19 17:30] LABS: ALB/GLOB Ratio 0.8 RATIO (0.9-2.4); AST(SGOT) 32 U/L (15-37); Alanine Aminotransfer ALT/SGPT 59 U/L (16-61); Albumin, Serum 3.1 g/dL (3.2-5.0); Alkaline Phosphatase 75 U/L (45-117); Anion Gap 4 (5-15); BUN 15 mg/dL (7-18); BUN/Creat Ratio 13.5 RATIO (10-20); Calcium,Total 8.5 mg/dL (8.5-10.1); Chloride 105 mmol/L (98-107); Creatinine, Serum 1.11 mg/dL (0.70-1.30); EST Glomerular Filtration Rate 71 mL/min (>60); Est Glom Filt Rate - Afr Amer 86 mL/min (>60); Globulin 3.8 g/dL (2.2-4.2); Glucose 82 mg/dL (74-106); Potassium 4.1 mmol/L (3.5-5.1); Protein, Total 6.9 g/dL (6.4-8.2); Sodium Level 141 mmol/L (136-145); Thyroid Stim Hormone (TSH) 0.84 uIU/mL (0.358-3.74)
== END 2021-08-19 23:59 | disposition short-term general hospital (02) ==
LOC: LAB 16:06
PROVIDERS: PCP Internal Medicine; Visit Provider Internal Medicine
DX: R53.83 Other fatigue (principal); R50.9 Fever, unspecified
CPT/HCPCS: 36415; 71046; 80053; 81001; 84443; 85025; 87086

== ENCOUNTER 2021-09-09 09:31 | Outpatient (CLI) | payer OTHER, SELFPAY ==
--- NOTE | 2021-09-09 09:34 | RAD_ITS ---
STUDY: X-RAY CHEST REASON FOR EXAM: Male, 61 years old. CHEST PAIN PNEUMONIA DUE TO COVID TECHNIQUE: XR Chest 2 Views COMPARISON: 1.7. FINDINGS: There is no demonstrated pleural abnormality. There are bilateral perihilar infiltrates. This may suggest a perihilar pneumonia vs bronchitis. Normal size heart. Normal mediastinum and ilia. Normal visualized pulmonary arteries. Normal visualized aortic arch and descending thoracic aorta. Normal visualized thoracic spine. Normal visualized ribs, clavicles, and shoulders. There is no demonstrated abnormality of the visualized soft tissue structures of the upper abdomen. RAD/Chest PA and Lateral IMPRESSION: There has been no change in the appearance of the chest since the prior study. Electronically Signed: Kingston Can MD at 17:00 EST ,
== END 2021-09-09 23:59 | disposition short-term general hospital (02) ==
PROVIDERS: PCP Internal Medicine; Referring Provider Internal Medicine; Visit Provider Internal Medicine
DX: U07.1 COVID-19 (principal); J12.82 Pneumonia due to coronavirus disease 2019
CPT/HCPCS: 71046

== ENCOUNTER 2021-10-04 09:08 | Outpatient (CLI) | payer OTHER, SELFPAY ==
--- NOTE | 2021-10-04 09:14 | RAD_ITS ---
STUDY: X-RAY CHEST REASON FOR EXAM: Male, 61 years old. FEVER TECHNIQUE: PA and lateral views of the chest. COMPARISON: 09/09/2021 FINDINGS: The lungs are clear and expanded. There is no demonstrated pleural abnormality. Normal size heart. Normal mediastinum and ilia. Normal visualized pulmonary arteries. Normal visualized aortic arch and descending thoracic aorta. Normal visualized thoracic spine. Normal visualized ribs, clavicles, and shoulders. There is no demonstrated abnormality of the visualized soft tissue structures of the upper abdomen. RAD/Chest PA and Lateral IMPRESSION: No acute pulmonary process Electronically Signed: Beltran Melo MD at 15:25 EST ,
== END 2021-10-04 23:59 | disposition home or self-care (01) ==
LOC: MTRAD 09:11
PROVIDERS: PCP Internal Medicine; Referring Provider Internal Medicine; Visit Provider Internal Medicine
DX: R50.9 Fever, unspecified (principal)
CPT/HCPCS: 71046

== ENCOUNTER 2021-10-21 09:56 | Outpatient (CLI) | payer OTHER, SELFPAY ==
[2021-10-21 10:03] LABS: Bacteria 0 SEEN /hpf (None Seen); Mucous, Urine 0 SEEN /hpf (<or=2+); Red Blood Cells-Urine 0 SEEN /hpf (0-5); Squamous Epithelial Cells - UA 0 SEEN /hpf (0-5); White Blood Cells 0 SEEN /hpf (0-5)
[2021-10-21 10:07] LABS: Absolute Neutrophil Count 3.5 X10^3/uL (2.0-7.7); Basophil# 0.08 X10^3/uL; Basophil% 1.3 % (0-1); Eosinophil# 0.19 X10^3/uL; Hematocrit 49.3 % (40-54); Hemoglobin 17.3 g/dL (13.0-16.5); Lymphocyte % 27.3 % (19-41); Mean Corp Hgb Conc 35.1 g/dL (32-36); Mean Corpuscular Hgb 33.1 pg (27.0-32.0); Mean Corpuscular Volume 94.3 fL (80-94); Monocyte# 0.79 X10^3/uL; Monocyte% 12.7 % (0-10); NRBC Flagged by Analyzer 0 % (0-5); Neutrophil # 3.45 X10^3/uL (2.7-7.7); Neutrophil % 55.4 % (47-70); Platelet Count 312 K/mm3 (150-450); RBC Distribution Width CV 12.9 % (11.6-14.6); RBC Distribution Width SD 44.1 fl (35.1-43.9); Red Blood Count 5.23 M/mm3 (4.6-6.2); White Blood Count 6.2 K/mm3 (4.4-11.0)
[2021-10-21 10:13] LABS: Color, Urine Yellow (Yellow); Glucose, Dipstick Normal (Normal); Ketone-Dipstick Negative (Negative); Leukocyte Esterase-Dipstick Negative /ul (Negative); Nitrite-Dipstick Negative (Negative); Occult Blood-Urine Negative /ul (Negative); Protein-Dipstick Negative (Negative); Specific Gravity, Urine 1.025 (1.002-1.030); Urine Bilirubin Dipstick Negative (Negative); Urine Clarity Clear (Clear); Urine Urobilinogen Normal (Normal)
[2021-10-21 10:31] LABS: ALB/GLOB Ratio 1.3 RATIO (0.9-2.4); AST(SGOT) 19 U/L (15-37); Alanine Aminotransfer ALT/SGPT 37 U/L (16-61); Albumin, Serum 3.6 g/dL (3.2-5.0); Alkaline Phosphatase 60 U/L (45-117); Anion Gap 3 (5-15); BUN 13 mg/dL (7-18); BUN/Creat Ratio 11.2 RATIO (10-20); Calcium,Total 8.9 mg/dL (8.5-10.1); Chloride 110 mmol/L (98-107); Creatinine, Serum 1.16 mg/dL (0.70-1.30); EST Glomerular Filtration Rate 68 mL/min (>60); Est Glom Filt Rate - Afr Amer 82 mL/min (>60); Globulin 2.7 g/dL (2.2-4.2); Glucose 113 mg/dL (74-106); Potassium 4.4 mmol/L (3.5-5.1); Protein, Total 6.3 g/dL (6.4-8.2); Sodium Level 142 mmol/L (136-145); Thyroid Stim Hormone (TSH) 0.77 uIU/mL (0.358-3.74)
== END 2021-10-21 23:59 | disposition home or self-care (01) ==
LOC: LABSPEC 09:58
PROVIDERS: PCP Internal Medicine; Visit Provider Internal Medicine
DX: R53.83 Other fatigue (principal); R50.9 Fever, unspecified
CPT/HCPCS: 80053; 81001; 84443; 85025; 87086

== ENCOUNTER 2021-11-10 13:59 | Outpatient (CLI) | payer OTHER, SELFPAY ==
--- NOTE | 2021-11-10 14:02 | US_ITS ---
STUDY: THYROID ULTRASOUND REASON FOR EXAM: Male, 61 years old. THYROID NODULE TECHNIQUE: Ultrasound evaluation of the thyroid was performed with real-time and static wagner-scale imaging. COMPARISON: 10.04.20 FINDINGS: RIGHT LOBE: The right lobe of the thyroid gland measures 5.1 x 2 cm. There is a homogeneous echotexture. There is a nodule. This measures 2 x 2 by 2 mm. The lesion is solid / cystic with regular margins and jaron nodular doppler flow. LEFT LOBE: The left lobe of the thyroid gland measures 5.3 x 2 cm. There is a homogeneous echotexture. There are no demonstrated solid, cystic or complex lesions. ISTHMUS: The isthmus measures 5 mm. US/Thyroid IMPRESSION: There are RIGHT nodules. This nodule is mixed cystic and solid, anechoic, [id number], smoothly marginated and contains no echogenic foci. TI-RADS points: 1. TI-RADS category: TR1. This nodule is benign and no FNA or follow-up is necessary. Previously noted left thyroid nodules are not visualized on today''s study. Electronically Signed: Kingston Can MD at 21:57 EDT ,
== END 2021-11-10 23:59 | disposition home or self-care (01) ==
LOC: US 14:01
PROVIDERS: PCP Internal Medicine; Referring Provider Internal Medicine; Visit Provider Internal Medicine
DX: E04.1 Nontoxic single thyroid nodule (principal)
CPT/HCPCS: 76536

== ENCOUNTER → 2022-02-23 | Outpatient (CLI) | payer OTHER, SELFPAY ==
[2022-02-23 10:08] LABS: Absolute Lymphocyte Count 1.46 X10^3/uL (0.83-4.51); Absolute Neutrophil Count 4.6 X10^3/uL (2.0-7.7); Basophil# 0.08 X10^3/uL; Basophil% 1.1 % (0-1); Eosinophil# 0.18 X10^3/uL; Eosinophils% 2.5 % (0-5); Hematocrit 50.3 % (40-54); Hemoglobin 17.1 g/dL (13.0-16.5); Lymphocyte # 1.46 X10^3/ul (0.83-4.51); Lymphocyte % 20.1 % (19-41); Mean Corpuscular Hgb 31.5 pg (27.0-32.0); Mean Corpuscular Volume 92.6 fL (80-94); Mean Platelet Vol. 9.8 fl (6.2-12.0); Monocyte# 0.89 X10^3/uL; Monocyte% 12.2 % (0-10); NRBC Flagged by Analyzer 0 % (0-5); Neutrophil # 4.63 X10^3/uL (2.7-7.7); Neutrophil % 63.7 % (47-70); Platelet Count 268 K/mm3 (150-450); RBC Distribution Width CV 12.2 % (11.6-14.6); RBC Distribution Width SD 42.1 fl (35.1-43.9); Red Blood Count 5.43 M/mm3 (4.6-6.2); White Blood Count 7.3 K/mm3 (4.4-11.0)
[2022-02-23 10:25] LABS: ALB/GLOB Ratio 1.1 RATIO (0.9-2.4); AST(SGOT) 20 U/L (15-37); Alanine Aminotransfer ALT/SGPT 29 U/L (16-61); Albumin, Serum 3.5 g/dL (3.2-5.0); Alkaline Phosphatase 64 U/L (45-117); Anion Gap 3 (5-15); BUN 13 mg/dL (7-18); BUN/Creat Ratio 11.7 RATIO (10-20); Calcium,Total 8.7 mg/dL (8.5-10.1); Chloride 108 mmol/L (98-107); Cholesterol 135 mg/dL (200); Creatinine, Serum 1.11 mg/dL (0.70-1.30); EST Glomerular Filtration Rate 71 mL/min (>60); Est Glom Filt Rate - Afr Amer 86 mL/min (>60); Globulin 3.1 g/dL (2.2-4.2); Glucose 122 mg/dL (74-106); High Density Lipoprotein 36 mg/dL; Potassium 4.2 mmol/L (3.5-5.1); Protein, Total 6.6 g/dL (6.4-8.2); Sodium Level 141 mmol/L (136-145); Triglycerides 98 mg/dL; Very Low Density Lipoprotein 20 mg/dL (5-40)
[2022-02-23 10:29] LABS: Hemoglobin A1c 5.3 % (3.8-5.6)
== END | disposition home or self-care (01) ==
LOC: MTLAB 08:35
PROVIDERS: PCP Internal Medicine; Referring Provider Internal Medicine; Visit Provider Internal Medicine
DX: D75.1 Secondary polycythemia (principal); E78.49 Other hyperlipidemia; R73.01 Impaired fasting glucose
CPT/HCPCS: 36415; 80053; 80061; 83036; 85025

== ENCOUNTER → 2022-06-05 | Outpatient (CLI) | payer OTHER, SELFPAY ==
[2022-06-05 09:12] LABS: Absolute Lymphocyte Count 1.59 X10^3/uL (0.83-4.51); Absolute Neutrophil Count 4.7 X10^3/uL (2.0-7.7); Basophil# 0.09 X10^3/uL; Basophil% 1.2 % (0-1); Eosinophil# 0.19 X10^3/uL; Eosinophils% 2.5 % (0-5); Lymphocyte # 1.59 X10^3/ul (0.83-4.51); Lymphocyte % 21.3 % (19-41); Mean Corp Hgb Conc 33.3 g/dL (32-36); Mean Corpuscular Hgb 30.1 pg (27.0-32.0); Mean Corpuscular Volume 90.4 fL (80-94); Mean Platelet Vol. 9.3 fl (6.2-12.0); Monocyte# 0.86 X10^3/uL; Monocyte% 11.5 % (0-10); NRBC Flagged by Analyzer 0 % (0-5); Neutrophil % 63.1 % (47-70); Platelet Count 290 K/mm3 (150-450); RBC Distribution Width CV 13.3 % (11.6-14.6); Red Blood Count 5.64 M/mm3 (4.6-6.2); White Blood Count 7.5 K/mm3 (4.4-11.0)
[2022-06-05 09:51] LABS: ALB/GLOB Ratio 1.2 RATIO (0.9-2.4); AST(SGOT) 20 U/L (15-37); Alanine Aminotransfer ALT/SGPT 29 U/L (16-61); Albumin, Serum 3.5 g/dL (3.2-5.0); Alkaline Phosphatase 63 U/L (45-117); Anion Gap 1 (5-15); BUN 11 mg/dL (7-18); BUN/Creat Ratio 11.7 RATIO (10-20); Calcium,Total 8.7 mg/dL (8.5-10.1); Chloride 107 mmol/L (98-107); Cholesterol 145 mg/dL (200); Creatinine, Serum 0.94 mg/dL (0.70-1.30); EST Glomerular Filtration Rate 86 mL/min (>60); Est Glom Filt Rate - Afr Amer 104 mL/min (>60); Glucose 123 mg/dL (74-106); High Density Lipoprotein 34 mg/dL; PSA,Total - Annual Screen 0.89 ng/mL (0.00-4.00); Potassium 4.2 mmol/L (3.5-5.1); Protein, Total 6.5 g/dL (6.4-8.2); Sodium Level 140 mmol/L (136-145); Thyroid Stim Hormone (TSH) 1.77 uIU/mL (0.358-3.74); Triglycerides 135 mg/dL; Very Low Density Lipoprotein 27 mg/dL (5-40)
[2022-06-05 10:03] LABS: Hemoglobin A1c 5.4 % (3.8-5.6)
== END | disposition home or self-care (01) ==
LOC: LAB 08:59
PROVIDERS: PCP Internal Medicine; Referring Provider Internal Medicine; Visit Provider Internal Medicine
DX: E05.90 Thyrotoxicosis, unspecified without thyrotoxic crisis or storm (principal); E78.49 Other hyperlipidemia; D75.1 Secondary polycythemia; R73.01 Impaired fasting glucose; Z12.5 Encounter for screening for malignant neoplasm of prostate
CPT/HCPCS: 36415; 80053; 80061; 83036; 84153; 84443; 85025; G0103

== ENCOUNTER → 2022-09-14 | Outpatient (CLI) | payer OTHER, SELFPAY ==
[2022-09-14 10:02] LABS: Absolute Lymphocyte Count 1.05 X10^3/uL (0.83-4.51); Absolute Neutrophil Count 6.8 X10^3/uL (2.0-7.7); Basophil# 0.05 X10^3/uL; Basophil% 0.6 % (0-1); Eosinophil# 0.32 X10^3/uL; Eosinophils% 3.6 % (0-5); Hematocrit 48.6 % (40-54); Hemoglobin 16.3 g/dL (13.0-16.5); Lymphocyte # 1.05 X10^3/ul (0.83-4.51); Lymphocyte % 11.7 % (19-41); Mean Corp Hgb Conc 33.5 g/dL (32-36); Mean Corpuscular Hgb 31.3 pg (27.0-32.0); Mean Corpuscular Volume 93.3 fL (80-94); Mean Platelet Vol. 9.1 fl (6.2-12.0); Monocyte# 0.71 X10^3/uL; Monocyte% 7.9 % (0-10); NRBC Flagged by Analyzer 0 % (0-5); Neutrophil # 6.75 X10^3/uL (2.7-7.7); Neutrophil % 75.5 % (47-70); Platelet Count 297 K/mm3 (150-450); RBC Distribution Width CV 12.4 % (11.6-14.6); RBC Distribution Width SD 42.8 fl (35.1-43.9); Red Blood Count 5.21 M/mm3 (4.6-6.2); White Blood Count 8.9 K/mm3 (4.4-11.0)
[2022-09-14 10:25] LABS: Hemoglobin A1c 5.2 % (3.8-5.6)
[2022-09-14 10:26] LABS: ALB/GLOB Ratio 1.1 RATIO (0.9-2.4); AST(SGOT) 21 U/L (15-37); Alanine Aminotransfer ALT/SGPT 31 U/L (16-61); Albumin, Serum 3.3 g/dL (3.2-5.0); Alkaline Phosphatase 56 U/L (45-117); Anion Gap 7 (5-15); BUN 11 mg/dL (7-18); BUN/Creat Ratio 9.8 RATIO (10-20); Calcium,Total 8.4 mg/dL (8.5-10.1); Chloride 108 mmol/L (98-107); Cholesterol 118 mg/dL (200); Creatinine, Serum 1.12 mg/dL (0.70-1.30); EST Glomerular Filtration Rate 70 mL/min (>60); Est Glom Filt Rate - Afr Amer 85 mL/min (>60); Globulin 3.1 g/dL (2.2-4.2); Glucose 115 mg/dL (74-106); High Density Lipoprotein 29 mg/dL; Potassium 4.1 mmol/L (3.5-5.1); Protein, Total 6.4 g/dL (6.4-8.2); Sodium Level 142 mmol/L (136-145); Thyroid Stim Hormone (TSH) 2.19 uIU/mL (0.358-3.74); Triglycerides 70 mg/dL; Very Low Density Lipoprotein 14 mg/dL (5-40); Vitamin D,25 Hydroxy 59.6 ng/mL
== END | disposition home or self-care (01) ==
PROVIDERS: PCP Internal Medicine; Referring Provider Internal Medicine; Visit Provider Internal Medicine
DX: D75.1 Secondary polycythemia (principal); E05.90 Thyrotoxicosis, unspecified without thyrotoxic crisis or storm; E78.49 Other hyperlipidemia; R53.83 Other fatigue; R73.01 Impaired fasting glucose
CPT/HCPCS: 36415; 80053; 80061; 82306; 83036; 84443; 85025

== ENCOUNTER → 2022-11-03 | Outpatient (CLI) | payer OTHER, SELFPAY ==
--- NOTE | 2022-11-03 10:04 | CDU_ITS ---
Reason For Study: Bilateral carotid stenosis Rt. Velocities/BP Lt. Velocities/BP Prox CCA 143/13.3 cm/sec. Prox CCA 139/18.2 cm/sec. Mid CCA 110.1/17 cm/sec. Mid CCA 119.3/18.8 cm/sec. Dist CCA 106.5/20.6 cm/sec. Dist CCA 93.7/13.3 cm/sec. Prox ICA 99.8/20 cm/sec. Prox ICA 58.6/11.3 cm/sec. Mid ICA 63/17.6 cm/sec. Mid ICA 75.1/24.5 cm/sec. Dist ICA 67.9/22.5 cm/sec. Dist ICA 63/15.7 cm/sec. Rt. ICA/CCA = 0.91. Lt. ICA/CCA = 0.63. Prox ECA 150.3/11.5 cm/sec. Prox ECA 152.1/11.5 cm/sec. Rt. Vert. 64.2/9 cm/sec. Lt. Vert. 50.9/13.5 cm/sec. Right Extracranial There is homogeneous, smooth atherosclerotic plaque noted in the right common carotid artery. There is heterogeneous, irregular atherosclerotic plaque noted in the right internal carotid artery. There is intimal thickening but no significant atherosclerotic plaque noted in the right external carotid artery. Antegrade flow is noted in the right vertebral artery. Left Extracranial There is homogeneous, smooth atherosclerotic plaque noted in the left common carotid artery. There is heterogeneous, irregular atherosclerotic plaque noted in the left internal carotid artery. There is intimal thickening but no significant atherosclerotic plaque noted in the left external carotid artery. Antegrade flow is noted in the left vertebral artery. Procedure Carotid Duplex [id number]. This is a Carotid Duplex examination using B-mode, color flow and specral Doppler. Exam performed in department. VL/Carotid Duplex Ultrasound Interpretation Summary Irregular plaque at the proximal right internal carotid artery with less than 5 0% stenosis Less than 50% stenosis right external carotid artery Minimal plaque at the proximal left internal carotid artery with less than 50% stenosis Less than 50% stenosis left external carotid artery Patent antegrade vertebral arteries bilaterally No change from the previous examination of July 10, 2014 Ordering Physician: Ana Lowe Referring Physician: Ana Lowe Performed By: Anais Cordero RVT
== END | disposition home or self-care (01) ==
LOC: CVS 10:03
PROVIDERS: PCP Internal Medicine; Referring Provider Internal Medicine; Visit Provider Internal Medicine
DX: I65.23 Occlusion and stenosis of bilateral carotid arteries (principal)
CPT/HCPCS: 93880

== ENCOUNTER → 2022-11-07 | Outpatient (CLI) | payer OTHER, SELFPAY ==
--- NOTE | 2022-11-07 12:35 | MRI_ITS ---
EXAM: MR HEAD WITHOUT AND WITH INTRAVENOUS CONTRAST CLINICAL INDICATION: tinnitus, left ear -- tinnitus, left ear-HEARING LOSS TECHNIQUE: Multiplanar and multisequence MR images of the brain were obtained without and with intravenous contrast. Magnetic field strength 1.5 T. This report was created using [employer] report generation technology. CONTRAST: 19 cc of Clariscan IV. COMPARISON: Noncontrast head CT 04/04/2016. MRI brain 03/06/2019. FINDINGS: BRAIN AND EXTRA-AXIAL SPACES: Unremarkable. No intra- or extra-axial hemorrhage. No evidence of acute infarct. No intracranial mass or mass effect. There is preservation of the wagner/white matter interface. Posterior fossa structures are unremarkable. Ventricles are appropriate for age. No hydrocephalus. Basal cisterns are patent. SELLA: Unremarkable. Normal sella turcica, pituitary gland, infundibular stalk, optic chiasm and hypothalamus. AUDITORY SYSTEM: Unremarkable. The internal auditory canals are patent. BONES/JOINTS: Unremarkable. No discrete lytic or blastic abnormalities. SINUSES: Unremarkable as visualized. Clear. MASTOID AIR CELLS: Opacification of the left mastoid air cells similar to the prior exams. ORBITS: Unremarkable as visualized. Both globes, extraocular muscles, optic nerves and retrobulbar fat appear unremarkable. VASCULATURE: Unremarkable as visualized. Normal flow voids in the major intracranial circulation. MRI/Brain W/WO Contrast IMPRESSION: 1. No acute intracranial abnormality. 2. Chronic opacification left mastoid air cells. Electronically Signed: Lupillo Cohen MD at 5:29 EDT ,
[2022-11-07 13:20] LABS: EGFR FINGERSTICK > 60.0000 mL/min (>60)
== END | disposition home or self-care (01) ==
PROVIDERS: PCP Internal Medicine; Referring Provider Internal Medicine; Visit Provider Internal Medicine
DX: H93.12 Tinnitus, left ear (principal)
CPT/HCPCS: 70553; A9575

== ENCOUNTER → 2022-11-15 | Outpatient (CLI) | payer OTHER, SELFPAY ==
[2022-11-15 12:12] LABS: Absolute Lymphocyte Count 1.66 X10^3/uL (0.83-4.51); Basophil# 0.08 X10^3/uL; Basophil% 1.4 % (0-1); Eosinophils% 3.5 % (0-5); Hematocrit 52.7 % (40-54); Hemoglobin 17.7 g/dL (13.0-16.5); Lymphocyte # 1.66 X10^3/ul (0.83-4.51); Lymphocyte % 29.3 % (19-41); Mean Corp Hgb Conc 33.6 g/dL (32-36); Mean Corpuscular Hgb 31.4 pg (27.0-32.0); Mean Corpuscular Volume 93.4 fL (80-94); Mean Platelet Vol. 9.5 fl (6.2-12.0); Monocyte# 0.68 X10^3/uL; NRBC Flagged by Analyzer 0 % (0-5); Neutrophil # 3.03 X10^3/uL (2.7-7.7); Neutrophil % 53.4 % (47-70); Platelet Count 287 K/mm3 (150-450); RBC Distribution Width CV 12.4 % (11.6-14.6); RBC Distribution Width SD 42.8 fl (35.1-43.9); Red Blood Count 5.64 M/mm3 (4.6-6.2); White Blood Count 5.7 K/mm3 (4.4-11.0)
[2022-11-15 12:50] LABS: AST(SGOT) 20 U/L (15-37); Alanine Aminotransfer ALT/SGPT 29 U/L (16-61); Albumin, Serum 3.6 g/dL (3.2-5.0); Alkaline Phosphatase 60 U/L (45-117); Bilirubin, Direct 0.24 mg/dL (0.00-0.30); Creatinine, Serum 1.05 mg/dL (0.70-1.30); EST Glomerular Filtration Rate 76 mL/min (>60); Est Glom Filt Rate - Afr Amer 92 mL/min (>60); Globulin 3.2 g/dL (2.2-4.2); Protein, Total 6.8 g/dL (6.4-8.2)
== END | disposition home or self-care (01) ==
PROVIDERS: PCP Internal Medicine; Visit Provider Internal Medicine Rheumatology
DX: L40.50 Arthropathic psoriasis, unspecified (principal)
CPT/HCPCS: 36415; 80076; 82565; 85025

== ENCOUNTER → 2022-11-27 | Outpatient (CLI) | payer OTHER, SELFPAY ==
[2022-11-27 17:36] LABS: Absolute Lymphocyte Count 1.72 X10^3/uL (0.83-4.51); Absolute Neutrophil Count 3.9 X10^3/uL (2.0-7.7); Basophil% 1.5 % (0-1); Eosinophil# 0.18 X10^3/uL; Eosinophils% 2.7 % (0-5); Hematocrit 49.3 % (40-54); Lymphocyte # 1.72 X10^3/ul (0.83-4.51); Lymphocyte % 25.8 % (19-41); Mean Corp Hgb Conc 34.5 g/dL (32-36); Mean Corpuscular Hgb 31.6 pg (27.0-32.0); Mean Corpuscular Volume 91.6 fL (80-94); Mean Platelet Vol. 9.7 fl (6.2-12.0); Monocyte# 0.79 X10^3/uL; Monocyte% 11.9 % (0-10); NRBC Flagged by Analyzer 0 % (0-5); Neutrophil # 3.86 X10^3/uL (2.7-7.7); Neutrophil % 57.9 % (47-70); Platelet Count 266 K/mm3 (150-450); RBC Distribution Width SD 40.1 fl (35.1-43.9); Red Blood Count 5.38 M/mm3 (4.6-6.2); White Blood Count 6.7 K/mm3 (4.4-11.0)
[2022-11-27 18:22] LABS: AST(SGOT) 24 U/L (15-37); Alanine Aminotransfer ALT/SGPT 34 U/L (16-61); Albumin, Serum 3.7 g/dL (3.2-5.0); Alkaline Phosphatase 60 U/L (45-117); Bilirubin, Direct 0.17 mg/dL (0.00-0.30); Creatinine, Serum 1.09 mg/dL (0.70-1.30); EST Glomerular Filtration Rate 72 mL/min (>60); Est Glom Filt Rate - Afr Amer 88 mL/min (>60); Globulin 2.9 g/dL (2.2-4.2); Protein, Total 6.6 g/dL (6.4-8.2)
== END | disposition home or self-care (01) ==
LOC: MTLAB 16:11
PROVIDERS: PCP Internal Medicine; Referring Provider Internal Medicine Rheumatology; Visit Provider Internal Medicine Rheumatology
DX: L40.50 Arthropathic psoriasis, unspecified (principal)
CPT/HCPCS: 36415; 80076; 82565; 85025

== ENCOUNTER → 2023-05-09 | Outpatient (CLI) | payer OTHER, SELFPAY ==
--- NOTE | 2023-05-09 11:48 | US_ITS ---
INDICATION: thryoid nodule -- thryoid nodule EXAMINATION: Ultrasound US Thyroid (eg thyroid, parathyroid, parotid) TECHNIQUE: Ragland scale and color doppler imaging was performed of the thyroid gland. COMPARISON: 11/10/2021 FINDINGS: RIGHT THYROID LOBE: 4.5 x 1.5 x 1.5 cm. Homogeneous echotexture with normal vascularity. [There is a small mid thyroid mixed nodule measuring just under 3 mm LEFT THYROID LOBE: 3.9 x 1.3 x 1.5 cm. Homogeneous echotexture with normal vascularity. [No thyroid nodules are present. ISTHMUS: 3.7 mm. No thyroid nodules are present. US/Thyroid IMPRESSION: 3 mm mid right thyroid mixed nodule, slightly larger than on previous study. Electronically Signed: Darnell Lawler DO at 20:39 EDT ,
== END | disposition home or self-care (01) ==
LOC: US 11:48
PROVIDERS: PCP Internal Medicine; Referring Provider Internal Medicine; Visit Provider Internal Medicine
DX: E04.1 Nontoxic single thyroid nodule (principal)
CPT/HCPCS: 76536

== ENCOUNTER → 2023-05-14 | Outpatient (CLI) | payer OTHER, SELFPAY ==
[2023-05-14 10:05] LABS: Absolute Neutrophil Count 6.5 X10^3/uL (2.0-7.7); Basophil# 0.13 X10^3/uL; Basophil% 1.4 % (0-1); Eosinophil# 0.06 X10^3/uL; Eosinophils% 0.6 % (0-5); Hematocrit 48.4 % (40-54); Hemoglobin 16.1 g/dL (13.0-16.5); Lymphocyte % 16.1 % (19-41); Mean Corp Hgb Conc 33.3 g/dL (32-36); Mean Corpuscular Hgb 30.6 pg (27.0-32.0); Mean Corpuscular Volume 91.8 fL (80-94); Monocyte# 1.07 X10^3/uL; Monocyte% 11.5 % (0-10); NRBC Flagged by Analyzer 0 % (0-5); Neutrophil # 6.49 X10^3/uL (2.7-7.7); Platelet Count 301 K/mm3 (150-450); RBC Distribution Width CV 12.9 % (11.6-14.6); RBC Distribution Width SD 42.7 fl (35.1-43.9); Red Blood Count 5.27 M/mm3 (4.6-6.2); White Blood Count 9.3 K/mm3 (4.4-11.0)
[2023-05-14 10:21] LABS: Microalbumin:Creatinine Ratio 10.1 mg/g CRE (<30 mg/g CRE)
[2023-05-14 10:25] LABS: ALB/GLOB Ratio 1.2 RATIO (0.9-2.4); AST(SGOT) 25 U/L (15-37); Alanine Aminotransfer ALT/SGPT 41 U/L (16-61); Albumin, Serum 3.5 g/dL (3.2-5.0); Alkaline Phosphatase 57 U/L (45-117); Anion Gap 4 (5-15); BUN 14 mg/dL (7-18); BUN/Creat Ratio 14.2 RATIO (10-20); Calcium,Total 8.4 mg/dL (8.5-10.1); Chloride 106 mmol/L (98-107); Cholesterol 136 mg/dL (200); Creatinine, Serum 0.98 mg/dL (0.70-1.30); EST Glomerular Filtration Rate 81 mL/min (>60); Est Glom Filt Rate - Afr Amer 98 mL/min (>60); Globulin 2.9 g/dL (2.2-4.2); Glucose 109 mg/dL (74-106); High Density Lipoprotein 40 mg/dL; Potassium 3.8 mmol/L (3.5-5.1); Protein, Total 6.4 g/dL (6.4-8.2); Sodium Level 140 mmol/L (136-145); Thyroid Stim Hormone (TSH) 1.16 uIU/mL (0.358-3.74); Triglycerides 81 mg/dL; Very Low Density Lipoprotein 16 mg/dL (5-40)
[2023-05-14 10:32] LABS: Hemoglobin A1c 5.2 % (3.8-5.6)
== END | disposition home or self-care (01) ==
PROVIDERS: PCP Internal Medicine; Referring Provider Internal Medicine; Visit Provider Internal Medicine
DX: E78.49 Other hyperlipidemia (principal); E05.90 Thyrotoxicosis, unspecified without thyrotoxic crisis or storm; D72.821 Monocytosis (symptomatic); R73.01 Impaired fasting glucose
CPT/HCPCS: 36415; 80053; 80061; 82043; 82570; 83036; 84443; 85025

== ENCOUNTER → 2023-09-12 | Outpatient (CLI) | payer OTHER, SELFPAY ==
[2023-09-12 12:28] LABS: Absolute Lymphocyte Count 1.35 X10^3/uL (0.83-4.51); Absolute Neutrophil Count 4.1 X10^3/uL (2.0-7.7); Basophil# 0.13 X10^3/uL; Eosinophil# 0.21 X10^3/uL; Eosinophils% 3.2 % (0-5); Hematocrit 50.3 % (40-54); Hemoglobin 16.7 g/dL (13.0-16.5); Lymphocyte # 1.35 X10^3/ul (0.83-4.51); Lymphocyte % 20.4 % (19-41); Mean Corp Hgb Conc 33.2 g/dL (32-36); Mean Corpuscular Hgb 30.3 pg (27.0-32.0); Mean Corpuscular Volume 91.1 fL (80-94); Mean Platelet Vol. 9.8 fl (6.2-12.0); Monocyte# 0.82 X10^3/uL; Monocyte% 12.4 % (0-10); NRBC Flagged by Analyzer 0 % (0-5); Neutrophil # 4.08 X10^3/uL (2.7-7.7); Neutrophil % 61.4 % (47-70); Platelet Count 230 K/mm3 (150-450); RBC Distribution Width CV 12.2 % (11.6-14.6); RBC Distribution Width SD 40.9 fl (35.1-43.9); Red Blood Count 5.52 M/mm3 (4.6-6.2); White Blood Count 6.6 K/mm3 (4.4-11.0)
[2023-09-12 13:15] LABS: ALB/GLOB Ratio 1.1 RATIO (0.9-2.4); AST(SGOT) 23 U/L (15-37); Alanine Aminotransfer ALT/SGPT 33 U/L (16-61); Albumin, Serum 3.4 g/dL (3.2-5.0); Alkaline Phosphatase 56 U/L (45-117); Anion Gap 1 (5-15); BUN 16 mg/dL (7-18); Calcium,Total 8.6 mg/dL (8.5-10.1); Chloride 107 mmol/L (98-107); Cholesterol 136 mg/dL (200); Creatinine, Serum 1.07 mg/dL (0.70-1.30); EST Glomerular Filtration Rate 74 mL/min (>60); Est Glom Filt Rate - Afr Amer 89 mL/min (>60); Globulin 3.1 g/dL (2.2-4.2); Glucose 123 mg/dL (74-106); High Density Lipoprotein 33 mg/dL; Protein, Total 6.5 g/dL (6.4-8.2); Sodium Level 138 mmol/L (136-145); Thyroid Stim Hormone (TSH) 1.27 uIU/mL (0.358-3.74); Triglycerides 149 mg/dL; Very Low Density Lipoprotein 30 mg/dL (5-40)
[2023-09-12 13:37] LABS: Hemoglobin A1c 5.2 % (3.8-5.6)
== END | disposition home or self-care (01) ==
PROVIDERS: PCP Internal Medicine; Referring Provider Internal Medicine; Visit Provider Internal Medicine
DX: E78.49 Other hyperlipidemia (principal); E05.90 Thyrotoxicosis, unspecified without thyrotoxic crisis or storm; R73.01 Impaired fasting glucose; Z12.5 Encounter for screening for malignant neoplasm of prostate
CPT/HCPCS: 36415; 80053; 80061; 83036; 84153; 84443; 85025

== ENCOUNTER → 2023-10-24 | Outpatient (CLI) | payer OTHER, SELFPAY ==
--- NOTE | 2023-10-24 11:09 | CDU_ITS ---
Reason For Study: Bilateral carotid plaque Rt. Velocities/BP Lt. Velocities/BP Prox CCA 106.5/15.2 cm/sec. Prox CCA 149.9/18.2 cm/sec. Mid CCA 94.9/12.6 cm/sec. Mid CCA 104.7/13.3 cm/sec. Dist CCA 85.1/13.9 cm/sec. Dist CCA 94.9/16.3 cm/sec. Prox ICA 91.2/12.6 cm/sec. Prox ICA 56.9/13.9 cm/sec. Mid ICA 88.2/17 cm/sec. Mid ICA 83.9/22.5 cm/sec. Dist ICA 99.6/20.5 cm/sec. Dist ICA 88.8/29.8 cm/sec. Rt. ICA/CCA = 1.05. Lt. ICA/CCA = 0.85. Prox ECA 96.1/5.3 cm/sec. Prox ECA 150.3/11.5 cm/sec. Rt. Vert. 45.4/6.9 cm/sec. Lt. Vert. 64.1/16.8 cm/sec. Right Extracranial There is homogeneous, smooth atherosclerotic plaque noted in the right common carotid artery. There is heterogeneous, irregular atherosclerotic plaque noted in the right internal carotid artery. There is intimal thickening but no significant atherosclerotic plaque noted in the right external carotid artery. Antegrade flow is noted in the right vertebral artery. Left Extracranial There is homogeneous, smooth atherosclerotic plaque noted in the left common carotid artery. There is heterogeneous, irregular atherosclerotic plaque noted in the left internal carotid artery. There is intimal thickening but no significant atherosclerotic plaque noted in the left external carotid artery. Procedure Carotid Duplex [id number]. This is a Carotid Duplex examination using B-mode, color flow and specral Doppler. Exam performed in department. VL/Carotid Duplex Ultrasound Interpretation Summary Mild (<50%) stenosis right extracranial internal carotid. Mild (<50%) stenosis left extracranial internal carotid. Patent and antegrade vertebrals bilaterally. Ordering Physician: Ana Lowe Referring Physician: Ana Lowe Performed By: Anais Cordero RVT
== END | disposition home or self-care (01) ==
LOC: CVS 11:09
PROVIDERS: PCP Internal Medicine; Referring Provider Internal Medicine; Visit Provider Internal Medicine
DX: I65.23 Occlusion and stenosis of bilateral carotid arteries (principal)
CPT/HCPCS: 93880

== ENCOUNTER → 2024-06-13 | Outpatient (CLI) | payer MEDICARE, OTHER, SELFPAY ==
--- NOTE | 2024-06-13 15:10 | US_ITS ---
EXAM: US SOFT TISSUES HEAD AND NECK, THYROID CLINICAL INDICATION: Thyroid -- Thyroid nodule TECHNIQUE: Greyscale and color doppler imaging was performed of the thyroid gland. COMPARISON: No relevant prior studies available. FINDINGS: LEFT THYROID LOBE: The left thyroid lobe measures 3.9 x 1.4 x 1.7 cm. Homogeneous echotexture with normal vascularity. No thyroid nodules are present. RIGHT THYROID LOBE: The right thyroid lobe measures 4.0 x 1.4 x 1.6 cm. Homogeneous echotexture with normal vascularity. No thyroid nodules are present. ISTHMUS: The thyroid isthmus measures 0.4 cm. No thyroid nodules are present. US/Thyroid IMPRESSION: No acute thyroid findings. No thyroid nodules. Electronically Signed: Canelo Hoang DO at 12:29 EST ,
== END | disposition home or self-care (01) ==
LOC: US 15:10
PROVIDERS: PCP Internal Medicine; Referring Provider Internal Medicine; Visit Provider Internal Medicine
DX: E04.1 Nontoxic single thyroid nodule (principal)
CPT/HCPCS: 76536

== ENCOUNTER → 2024-12-08 | Outpatient (CLI) | payer MEDICARE, OTHER, SELFPAY ==
[2024-12-08 13:27] LABS: Absolute Lymphocyte Count 1.33 X10^3/uL (0.83-4.51); Absolute Neutrophil Count 3.8 X10^3/uL (2.0-7.7); Basophil# 0.14 X10^3/uL; Basophil% 2.2 % (0-1); Eosinophils% 3.2 % (0-5); Hematocrit 48.3 % (40-54); Hemoglobin 16.5 g/dL (13.0-16.5); Lymphocyte # 1.33 X10^3/ul (0.83-4.51); Lymphocyte % 21.2 % (19-41); Mean Corp Hgb Conc 34.2 g/dL (32-36); Mean Corpuscular Hgb 30.8 pg (27.0-32.0); Mean Corpuscular Volume 90.3 fL (80-94); Mean Platelet Vol. 10.1 fl (6.2-12.0); Monocyte# 0.82 X10^3/uL; Monocyte% 13.1 % (0-10); NRBC Flagged by Analyzer 0 % (0-5); Neutrophil # 3.75 X10^3/uL (2.7-7.7); Platelet Count 246 K/mm3 (150-450); RBC Distribution Width CV 12.5 % (11.6-14.6); RBC Distribution Width SD 41.1 fl (35.1-43.9); Red Blood Count 5.35 M/mm3 (4.6-6.2); White Blood Count 6.3 K/mm3 (4.4-11.0)
[2024-12-08 15:04] LABS: Microalbumin,Random Urine < 12.0 mg/L (NO RANGE EST.); Microalbumin:Creatinine Ratio UNABLE TO CALCULATE mg/g CRE
[2024-12-08 15:05] LABS: Hemoglobin A1c 5.3 % (<=5.6)
[2024-12-08 15:14] LABS: ALB/GLOB Ratio 1.6 RATIO (0.9-2.4); AST(SGOT) 24 U/L (<=37); Alanine Aminotransfer ALT/SGPT 24 U/L (<=46); Albumin, Serum 4.1 g/dL (3.4-4.8); Alkaline Phosphatase 66 U/L (40-129); Anion Gap 11 (5-15); BUN 21 mg/dL (4-19); BUN/Creat Ratio 20.2 RATIO (10-20); Calcium,Total 9.2 mg/dL (7.6-11.0); Carbon Dioxide 24.8 mmol/L (21.0-32.0); Chloride 104 mmol/L (98-108); Cholesterol 224 mg/dL (<=200); Creatinine, Serum 1.05 mg/dL (0.70-1.20); EST Glomerular Filtration Rate 79 (>60); Globulin 2.5 g/dL (2.2-4.2); Glucose 115 mg/dL (70-99); High Density Lipoprotein 32 mg/dL; Low Density Lipoprotein Calc. 162 mg/dL; PSA,Total - Annual Screen 0.84 ng/mL (0.02-4.00); Potassium 4.3 mmol/L (3.3-5.1); Protein, Total 6.6 g/dL (5.9-8.4); Sodium Level 140 mmol/L (133-145); Triglycerides 152 mg/dL; Very Low Density Lipoprotein 30 mg/dL (5-40); cholesterol:hdl ratio screen 7.02
== END | disposition home or self-care (01) ==
LOC: MTLAB 10:37
PROVIDERS: PCP Internal Medicine; Referring Provider Internal Medicine; Visit Provider Internal Medicine
DX: D75.1 Secondary polycythemia (principal); E78.49 Other hyperlipidemia; E05.90 Thyrotoxicosis, unspecified without thyrotoxic crisis or storm; R73.01 Impaired fasting glucose; Z12.5 Encounter for screening for malignant neoplasm of prostate
CPT/HCPCS: 36415; 80053; 80061; 82043; 82570; 83036; 84153; 84443; 85025; G0103

== ENCOUNTER → 2025-02-23 | Outpatient (CLI) | payer MEDICARE, OTHER, SELFPAY ==
--- NOTE | 2025-02-23 13:34 | CDU_ITS ---
Reason For Study Reason For Study: Carotid stenosis Rt. Velocities/BP Lt. Velocities/BP Prox CCA 117.4/15.2 cm/sec. Prox CCA 141.2/17 cm/sec. Mid CCA 117/18.8 cm/sec. Mid CCA 99.8/17.6 cm/sec. Dist CCA 102.3/15.1 cm/sec. Dist CCA 83.9/15.1 cm/sec. Prox ICA 74/16.3 cm/sec. Prox ICA 58.6/10.2 cm/sec. Mid ICA 83.9/22.5 cm/sec. Mid ICA 67.4/11.3 cm/sec. Dist ICA 92.8/22.5 cm/sec. Dist ICA 83.9/23. cm/sec. Rt. ICA/CCA = 0.79. Lt. ICA/CCA = 0.84. Prox ECA 106/7.7 cm/sec. Prox ECA 135.7/11.5 cm/sec. Rt. Vert. 58.6/8 cm/sec. Lt. Vert. 76.2/14.6 cm/sec. Right Extracranial There is homogeneous, smooth atherosclerotic plaque noted in the right common carotid artery. There is heterogeneous, irregular atherosclerotic plaque noted in the right internal carotid artery. There is intimal thickening but no significant atherosclerotic plaque noted in the right external carotid artery. Antegrade flow is noted in the right vertebral artery. Left Extracranial There is homogeneous, smooth atherosclerotic plaque noted in the left common carotid artery. There is heterogeneous, irregular atherosclerotic plaque noted in the left internal carotid artery. There is intimal thickening but no significant atherosclerotic plaque noted in the left external carotid artery. Antegrade flow is noted in the left vertebral artery. Procedure Carotid Duplex [id number]. This is a Carotid Duplex examination using B-mode, color flow and specral Doppler. Exam performed in department. VL/Carotid Duplex Ultrasound Interpretation Summary Mild (<50%) stenosis right extracranial internal carotid. Mild (<50%) stenosis left extracranial internal carotid. Patent and antegrade vertebrals bilaterally. Ordering Physician: Ana Lowe Referring Physician: Ana Lowe Performed By: Anais Cordero RVT
== END | disposition home or self-care (01) ==
LOC: CVS 13:33
PROVIDERS: PCP Internal Medicine; Referring Provider Internal Medicine; Visit Provider Internal Medicine
DX: I65.23 Occlusion and stenosis of bilateral carotid arteries (principal)
CPT/HCPCS: 93880

== ENCOUNTER → 2025-07-15 | Outpatient (CLI) | payer MEDICARE, OTHER, SELFPAY | END | disposition home or self-care (01) | LOC: PSN 10:35 | PROVIDERS: PCP Internal Medicine; Referring Provider Internal Medicine; Visit Provider Internal Medicine | DX: R94.2 Abnormal results of pulmonary function studies (principal) | CPT/HCPCS: 94060; 94726; 94729 ==

== ENCOUNTER → 2025-08-04 | Outpatient (CLI) | payer MEDICARE, OTHER, SELFPAY ==
--- NOTE | 2025-08-04 12:33 | CT_ITS ---
EXAM: CT Chest Without Intravenous Contrast CLINICAL INDICATION: ABNORMAL PULMONARY FUNCTION TEST, R/O INTERSTITIAL LUNG DISEASE TECHNIQUE: Axial computed tomography images of the chest without intravenous contrast. This CT exam was performed using one or more of the following dose reduction techniques: automated exposure control, adjustment of the mA and/or kV according to patient size, and/or use of iterative reconstruction technique. RADIATION DOSE: CTDIvol = 20 mGy, DLP = 749 mGy-cm COMPARISON: No relevant prior studies available. FINDINGS: LUNGS AND PLEURAL SPACES: Mild emphysematous lung changes with bilateral apical scarring, greater on the right. 3 mm nodule along the right major fissure. No consolidation. No significant effusion. No pneumothorax. HEART: Calcified coronary arterial disease. No cardiomegaly. No significant pericardial effusion. MEDIASTINUM: A few prominent mediastinal lymph nodes measuring up to 6 mm. BONES/JOINTS: Unremarkable. No acute fracture. SOFT TISSUES: Unremarkable. VASCULATURE: Scattered calcified atherosclerotic disease of aorta. LYMPH NODES: See above. CT/Chest without Contrast IMPRESSION: Mild emphysematous lung changes with bilateral apical scarring, greater on the right. 3 mm nodule along the right major fissure. Reading Location: [id number]
== END | disposition home or self-care (01) ==
LOC: CT 12:32
PROVIDERS: PCP Internal Medicine; Referring Provider Internal Medicine; Visit Provider Internal Medicine
DX: R94.2 Abnormal results of pulmonary function studies (principal)
CPT/HCPCS: 71250

== ENCOUNTER → 2025-08-10 | Outpatient (CLI) | payer MEDICARE, OTHER, SELFPAY ==
[2025-08-10 15:14] LABS: Hematocrit 46.5 % (40-54); Hemoglobin 16.3 g/dL (13.0-16.5); Immature Granulocytes Count 0.020 X10^3/uL (0.0-0.0); Mean Corp Hgb Conc 35.1 g/dL (32-36); Mean Corpuscular Volume 88.6 fL (80-94); Mean Platelet Vol. 9.3 fl (6.2-12.0); NRBC Flagged by Analyzer 0 % (0-5); Platelet Count 270 K/mm3 (150-450); RBC Distribution Width CV 12.5 % (11.6-14.6); RBC Distribution Width SD 40.7 fl (35.1-43.9); Red Blood Count 5.25 M/mm3 (4.6-6.2); White Blood Count 6.0 K/mm3 (4.4-11.0)
[2025-08-10 15:34] LABS: AST(SGOT) 22 U/L (<=37); Alanine Aminotransfer ALT/SGPT 30 U/L (<=46); Albumin, Serum 4.1 g/dL (3.4-4.8); Alkaline Phosphatase 59 U/L (40-129); Anion Gap 8 (7-18); BUN 17 mg/dL (4-19); BUN/Creat Ratio 16.6 RATIO (10-20); Calcium,Total 9.2 mg/dL (7.6-11.0); Carbon Dioxide 28.7 mmol/L (20.0-29.0); Chloride 105 mmol/L (96-106); Cholesterol 164 mg/dL (<=200); Globulin 2.4 g/dL (2.2-4.2); Glucose 109 mg/dL (70-99); Low Density Lipoprotein Calc. 107 mg/dL; Potassium 4.3 mmol/L (3.5-5.1); Triglycerides 101 mg/dL; Very Low Density Lipoprotein 20 mg/dL (5-40); cholesterol:hdl ratio screen 4.26
== END | disposition home or self-care (01) ==
LOC: MTLAB 13:21
PROVIDERS: PCP Internal Medicine; Referring Provider Internal Medicine; Visit Provider Internal Medicine
DX: R73.01 Impaired fasting glucose (principal); E05.90 Thyrotoxicosis, unspecified without thyrotoxic crisis or storm; E78.49 Other hyperlipidemia
CPT/HCPCS: 36415; 80053; 80061; 83036; 84443; 85025